=== PATIENT | male | born 1960 | race Caucasian/White ===

== ENCOUNTER 2016-07-30 12:41 | Inpatient (IN) | payer OTHER ==
--- NOTE | 2016-07-30 13:22 | PDOC ---
History of Present Illness - General Chief Complaint: Vomiting/Diarrhea Stated Complaint: WEAKNESS, N/V/D Time Seen by Provider: 07/30/16 13:15 History Source: Patient Exam Limitations: No Limitations - History of Present Illness Initial Comments: 07/30/16 13:35 Patient is a 56 year old male with PMH of DM (s/p multiple toe amputations, MRSA ), HTN, HLD, Prostate CA (seed implants 3 weeks ago) who presents to ED with fatigue. Patient states he has had nausea & vomiting for 3 days with a severe loss of appetite. Vomit is nonbilious nonbloody. He also reports several episodes of watery stools early on, but not for last 2 days. He states the lack of food & increased vomiting has left him very fatigues and he feels lightheaded. He has not taken any blood sugar fingersticks since tuesday. He also has not taken any of his insulin (short or long acting) since tuesday. Denies headache, chest pain, shortness of breath, abdominal pain, visual changes , fever or chills. Past History - Travel Traveled outside of the country in the last 30 days: No Close contact w/someone who was outside of country & ill: No - Past Medical History Allergies/Adverse Reactions: Allergies Allergy/AdvReac Type Severity Reaction Status Date / Time No Known Drug Allergies Allergy Verified 07/30/16 12:57 Home Medications: Ambulatory Orders Atorvastatin Ca [Lipitor] 40 mg PO HS tablet 10/20/15 Amlodipine Besylate [Norvasc -] 5 mg PO DAILY #30 tablet 10/21/15 Bicalutamide 50 mg PO DAILY 04/21/16 Teva Max 1 1 tab PO DAILY 04/27/16 Aspirin [ASA -] 81 mg PO DAILY 07/30/16 Fluticasone Prop 0.05% Nasal [Flonase -] 1 - 2 spray NS DAILY 07/30/16 Insulin Aspart [Novolog] 12 unit SQ TID 07/30/16 Insulin Degludec [Tresiba Flextouch U-100] 45 unit SQ DAILY 07/30/16 Metoprolol Succinate [Toprol Xl -] 25 mg PO DAILY 07/30/16 Multivit-Min/FA/Lycopen/Lutein [Centrum Silver Tablet] 1 each PO DAILY 07/30/16 Tamsulosin HCl 0.4 mg PO DAILY 07/30/16 Anemia: No Asthma: No Cancer: Yes (Prostate (s/p seed implants July 02, 2016)) Cardiac Disorders: No CVA: No COPD: No CHF: No Dementia: No Diabetes: Yes (s/p multiple toe amputations, MRSA, Osteomyelitis) GI Disorders: No Disorders: No HTN: Yes Hypercholesterolemia: Yes Liver Disease: No Seizures: No Thyroid Disease: No - Surgical History Abdominal Surgery: No Appendectomy: No Cardiac Surgery: No Cholecystectomy: No Lung Surgery: No Neurologic Surgery: No Orthopedic Surgery: Yes - Family Disease History Comment:: 07/30/16 13:44 noncontributory - Psycho/Social/Smoking Cessation Hx Anxiety: No Suicidal Ideation: No Smoking Status: Yes (quit smoking 9 days ago) Smoking History: Former smoker Have you smoked in the past 12 months: No Number of Cigarettes Smoked Daily: 0 If you are a former smoker, when did you quit?: 2012 Information on smoking cessation initiated: No 'Breaking Loose' booklet given: 04/04/13 Hx Alcohol Use: No Drug/Substance Use Hx: No Substance Use Type: None Hx Substance Use Treatment: No Review of Systems - Review of Systems Able to Perform ROS?: Yes Is the patient limited [place] Citizen proficient: No Constitutional: Yes: Loss of Appetite, Malaise, Weakness. No: Chills, Fever HEENTM: No: Blurred Vision, Nose Congestion, Throat Pain, Difficulty Swallowing Respiratory: No: Cough, Shortness of Breath, Wheezing, Hemoptysis Cardiac (ROS): Yes: Lightheadedness. No: Chest Pain, Edema, Palpitations ABD/GI: Yes: Nausea, Vomiting. No: Constipated, Diarrhea, Abdominal cramping : No: Burning, Dysuria Neurological: No: Headache, Numbness, Paresthesia, Ataxia All Other Systems: Reviewed and Negative *Physical Exam - Vital Signs Last Vital Signs Temp Pulse Resp BP Pulse Ox 97.7 F 114 H 20 96/78 98 07/30/16 12:57 07/30/16 12:57 07/30/16 12:57 07/30/16 12:57 07/30/16 12:57 - Physical Exam General Appearance: Yes: Nourished, Appropriately Dressed HEENT: positive: EOMI, [place], Pharynx Normal Neck: positive: Trachea midline, Normal Thyroid, Supple Respiratory/Chest: positive: Lungs Clear, Normal Breath Sounds Cardiovascular: positive: Regular Rhythm, S1, S2, Tachycardia Gastrointestinal/Abdominal: positive: Normal Bowel Sounds, Flat, Soft Musculoskeletal: positive: Normal Inspection Extremity: positive: Normal Range of Motion, Other (All 5 toes amputated on LEFT FOOT. 2 toes amputated on RIGHT foot. 1x2cm ulcer on right sole (not erythematous, tender or swollen; no discharge)). negative: Tender Integumentary: positive: Dry, Warm, Pale Neurologic: positive: nail galvanizer II-XII NML intact, Fully Oriented, Normal Mood/Affect , Motor Strength 5/5 Heart Score/ECG Review - ECG Impressions Comment:: 07/30/16 14:26 IMPRESSION: Normal sinus rhythm. Left [place] deviation. 100bpm. [id number] ED Treatment Course - LABORATORY CBC & Chemistry Diagram: 07/30/16 13:55 07/30/16 13:55 Medical Decision Making - Medical Decision Making 07/30/16 13:46 Will give 1 liter IVF given patient's volume depletion. Ordered CBC, CMP workup. Acetone ordered as well since patient has been off Insulin for 4 days now. 07/30/16 15:53 Glucose found to be 481. Patient given 6u Novolog. Also has acute renal failure w/ Creatinine 1.8. Will order CT Abdomen due to continued vomiting and continue to hydrate patient. Will likely require admission for ARF, Hypergyclemia & hyponatremia. 07/30/16 16:[address] Alva. Will accept patient for admission for Acute renal failure due to dehydration & hyperglycemia. *DC/Admit/Observation/Transfer Diagnosis at time of Disposition: Acute renal failure, IDDM (insulin dependent diabetes mellitus) - Discharge Dispostion Admit: Yes
--- NOTE | 2016-07-30 13:28 | PDOC ---
Attending Attestation - Resident Resident Name: Jose Luis Peres - ED Attending Attestation I have performed the following: I have examined & evaluated the patient, The case was reviewed & discussed with the resident, I agree w/resident's findings & plan, Exceptions are as noted - HPI HPI: 56 yo M history DM, HTN, HL, prostate CA presents with fatigue, N/V for past 3 days. He has poor appetite, no PO intake. He has not taken any insulin due to poor appetite and PO intake, but also has not checked his blood sugar in the interim. C/w fatigue, lightheadedness. Denies abd pain, cp, SOB, headache, f/c. - Physicial Exam PE: GENERAL: Awake, alert, and fully oriented, in no acute distress HEAD: No signs of trauma EYES: PERRLA, EOMI, sclera anicteric, conjunctiva clear ENT: Auricles normal inspection, hearing grossly normal, nares patent, oropharynx clear without exudates. Dry mucosa NECK: Normal ROM, supple, no lymphadenopathy, JVD, or masses LUNGS: Breath sounds equal, clear to auscultation bilaterally. No wheezes, and no crackles HEART: Regular rate and rhythm, normal S1 and S2, no murmurs, rubs or gallops ABDOMEN: Soft, nontender, normoactive bowel sounds. No guarding, no rebound. No masses EXTREMITIES: Normal range of motion, no edema. No clubbing or cyanosis. No cords, erythema, or tenderness NEUROLOGICAL: Cranial nerves II through XII grossly intact. Normal speech, normal gait SKIN: Warm, Dry, normal turgor, no rashes or lesions noted. - Medical Decision Making 56 yo M hx DM presents with 3 day history of poor appetite, N/V. Will obtain CT a/p, as 3 days is longer than would be expected with viral gastroenteritis. Will give IV hydration, check labs including an acetone. Will likely require admission, as he appears ill.
[2016-07-30] MEDS ORDERED: ONDANSETRON 4 MG/2 ML VIAL IVPUSH ONE (13:34)
[2016-07-30] MEDS ORDERED: SODIUM CHLORIDE 1,000 ML IV STA (13:34)
[2016-07-30] MEDS ORDERED: ONDANSETRON 4 MG/2 ML VIAL ONE (14:09)
[2016-07-30 14:20] LABS: MCH 27.5 pg (25.7-33.7); MCHC 34.1 g/dl (32.0-35.9); MEAN CELL VOLUME 80.7 fl (80-96); MEAN PLT VOLUME 9.7 fl (7.5-11.1); PLATELET COUNT 129 K/MM3 (134-434); RDW 16.7 % (11.9-15.9); WHITE BLOOD COUNT 6.7 K/mm3 (4.0-10.0)
[2016-07-30 14:52] LABS: ALBUMIN 3.5 g/dl (3.4-5.0); ANION GAP 15 (8-16); CALCIUM 9.2 mg/dL (8.5-10.1); CO2 22 mmol/L (21-32); CREATININE 1.8 mg/dL (0.7-1.3); SGPT/ALT 43 U/L (12-78)
[2016-07-30 14:54] LABS: ALK PHOS 111 U/L (45-117); BILIRUBIN,TOTAL 1.5 mg/dL (0.2-1.0); TOT PROT 7.4 g/dl (6.4-8.2)
[2016-07-30 14:57] LABS: SGOT/AST 44 U/L (15-37)
[2016-07-30 15:02] LABS: GLUCOSE,RANDOM 481 mg/dL (74-106)
[2016-07-30] MEDS ORDERED: SODIUM CHLORIDE 2,000 ML IV STA (15:11)
[2016-07-30 15:13] LABS: ACETONE SERUM POSITIVE SMALL 1+ (NEGATIVE)
[2016-07-30] MEDS ORDERED: INSULIN (NOVOLOG) ASPART 100 UNITS/ML 10ML VIAL SQ ONE (15:52)
[2016-07-30] MEDS ORDERED: INSULIN REGULAR HUMAN 100 UNITS/ML *VIAL ONE (15:59)
[2016-07-30 17:13] LABS: URINE APPEARANCE CLEAR; URINE BILIRUBIN NEGATIVE (NEGATIVE); URINE COLOR LTYELLOW; URINE GLUCOSE (UA) 3+ (NEGATIVE); URINE KETONE 1+ (NEGATIVE); URINE LEUK ESTERASE NEGATIVE (NEGATIVE); URINE NITRITE NEGATIVE (NEGATIVE); URINE UROBILINOGEN NEGATIVE E.U./dl (0.2-1.0)
[2016-07-30 17:22] LABS: URINE BLOOD 2+ (NEGATIVE); URINE PROTEIN 1+ (NEGATIVE)
[2016-07-30 17:24] LABS: URINE MUCUS RARE; URINE RBC 6 /hpf (0-3); URINE WBC 1 /hpf (3-5)
[2016-07-30] MEDS ORDERED: INSULIN ASPART 12 UNIT SQ SCH (22:00)
[2016-07-30] MEDS: ATORVASTATIN CA 40 MG TABLET (FP) PO SCH (22:07)
[2016-07-30] MEDS: HEPARIN NA (PORCINE) 5,000 UNITS/ML 1ML VIAL SQ SCH (22:07)
[2016-07-30] MEDS: INSULIN DETEMIR 100 UNITS/ML MDV SQ SCH (22:08)
[2016-07-30] MEDS: INSULIN SLIDING SCALE (NOVOLOG) 1 VIAL SQ SCH (22:08)
[2016-07-31 03:14] VITALS: BMI 26.6
[2016-07-31] MEDS: INSULIN SLIDING SCALE (NOVOLOG) 1 VIAL SQ SCH ×4 (06:30→22:27)
[2016-07-31] MEDS ORDERED: PT OWN MED DRAWER 7, Y5N ONE (06:58)
[2016-07-31 08:17] LABS: BASOPHIL 0.5 % (0-2.0); EOSINOPHIL 3.5 % (0-4.5); MCHC 35.1 g/dl (32.0-35.9); MEAN CELL VOLUME 79.7 fl (80-96); MEAN PLT VOLUME 9.4 fl (7.5-11.1); NEUTROPHILS 70.1 % (42.8-82.8); PLATELET COUNT 113 K/MM3 (134-434); RDW 16.5 % (11.9-15.9); WHITE BLOOD COUNT 6.7 K/mm3 (4.0-10.0)
[2016-07-31 09:16] LABS: ALK PHOS 92 U/L (45-117); ANION GAP 9 (8-16); BILIRUBIN,TOTAL 0.9 mg/dL (0.2-1.0); CALCIUM 8.2 mg/dL (8.5-10.1); CO2 25 mmol/L (21-32); GLUCOSE,RANDOM 188 mg/dL (74-106); SGOT/AST 27 U/L (15-37); SGPT/ALT 33 U/L (12-78)
--- NOTE | 2016-07-31 09:37 | CONSULT ---
Consult Consult Specialty:: CCM /PULM Referred by:: NAKUL Reason for Consultation:: Suspected DKA - History of Present Illness Chief Complaint: N&V and passing out History of Present Illness: 56 M DM, s/p multiple toe amputations, MRSA, HTN, HLD, Prostate CA (seed implants 3 weeks ago). Several days of URI and viral GI symptoms. (+) nausea & vomiting with loss of appetite and poor PO intake. Vomit is nonbloody. (+) watery stools early in the illness, but has resolved. Patient reports "I almost passed out" In the ER blood sugar was 481 and there was a suspicion for DKA. After aggressive volume resuscitation -> dramatic improvement in labs and this obviated the need for IV insulin. No CP or SOB. No significant cough or sputum production. 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: Peripheral Neuropathy, Other (IDDM) Cardio/Vascular: Yes: HTN, Hyperlipdemia, Other (peripheral vascular disease) Musculoskeletal: Yes: Osteoarthritis Endocrine: Yes: Diabetes Mellitus (Insulin dependent) - Alcohol/Substance Use Hx Alcohol Use: No - Smoking History Smoking history: Former smoker Have you smoked in the past 12 months: No Aproximately how many cigarettes per day: 0 If you are a former smoker, when did you quit?: 2012 - Social History Usual Living Arrangement: Other (with family) History of Recent Travel: No Home Medications - Allergies Allergies/Adverse Reactions: Allergies Allergy/AdvReac Type Severity Reaction Status Date / Time No Known Drug Allergies Allergy Verified 07/30/16 12:57 - Home Medications Home Medications: Ambulatory Orders Atorvastatin Ca [Lipitor] 40 mg PO HS tablet 10/20/15 Amlodipine Besylate [Norvasc -] 5 mg PO DAILY #30 tablet 10/21/15 Bicalutamide 50 mg PO DAILY 04/21/16 Teva Max 1 1 tab PO DAILY 04/27/16 Aspirin [ASA -] 81 mg PO DAILY 07/30/16 Fluticasone Prop 0.05% Nasal [Flonase -] 1 - 2 spray NS DAILY 07/30/16 Insulin Aspart [Novolog] 12 unit SQ TID 07/30/16 Insulin Degludec [Tresiba Flextouch U-100] 45 unit SQ DAILY 07/30/16 Metoprolol Succinate [Toprol Xl -] 25 mg PO DAILY 07/30/16 Multivit-Min/FA/Lycopen/Lutein [Centrum Silver Tablet] 1 each PO DAILY 07/30/16 Tamsulosin HCl 0.4 mg PO DAILY 07/30/16 Family Disease History - Family Disease History Family Disease History: Diabetes: Father Review of Systems - Review of Systems Constitutional: reports: Lethargy, Loss of Appetite, Malaise, Weakness. denies : Chills, Fever, Night Sweats Eyes: reports: No Symptoms HENT: reports: No Symptoms Neck: reports: No Symptoms Cardiovascular: denies: Chest Pain, Edema, Palpitations, Shortness of Breath Respiratory: reports: Cough. denies: Hemoptysis, SOB, SOB on Exertion, Wheezing Gastrointestinal: reports: Diarrhea, Nausea, Vomiting. denies: Melena, Rectal Bleeding, Vomiting Blood Genitourinary: reports: Other (S/P seed implantation 3 weeks ago) Breasts: reports: No Symptoms Reported Musculoskeletal: reports: Muscle Cramps. denies: Joint Swelling Integumentary: reports: No Symptoms Neurological: reports: No Symptoms Endocrine: denies: Excessive Sweating, Increased Thirst, Unexplained Weight Gain , Unexplained Weight Loss Hematology/Lymphatic: reports: No Symptoms Psychiatric: reports: No Symptoms Physical Exam Vital Signs: Vital Signs Temperature 98.6 F 07/31/16 06:13 Pulse Rate 89 07/31/16 06:13 Respiratory Rate 20 07/31/16 06:13 Blood Pressure 130/84 07/31/16 06:13 O2 Sat by Pulse Oximetry (%) 97 07/30/16 21:00 Constitutional: Yes: Well Nourished, No Distress, Calm Eyes: Yes: Conjunctiva Clear, EOM Intact HENT: Yes: Atraumatic, Normocephalic Neck: Yes: Supple, Trachea Midline Cardiovascular: Yes: Regular Rate and Rhythm Respiratory: Yes: Regular, CTA Bilaterally Gastrointestinal: Yes: Normal Bowel Sounds, Soft ...Rectal Exam: Yes: Deferred Renal/: Yes: WNL Musculoskeletal: Yes: WNL Extremities: Yes: WNL Edema: No Peripheral Pulses WNL: Yes Integumentary: Yes: WNL Neurological: Yes: WNL, Alert, Oriented ...Motor Strength: WNL Psychiatric: Yes: WNL, Alert, Oriented Labs: CBC, BMP 07/31/16 06:15 07/31/16 06:15 Imaging - Results Chest X-ray: Other (None performed) Cat Scan: Report Reviewed, Image Reviewed Problem List - Problems (1) Acute renal failure Code(s): N17.9 - ACUTE KIDNEY FAILURE, UNSPECIFIED (2) IDDM (insulin dependent diabetes mellitus) Code(s): E11.9 - TYPE 2 DIABETES MELLITUS WITHOUT COMPLICATIONS Z79.4 - [facility] (CURRENT) USE OF INSULIN (3) HTN (hypertension) Code(s): I10 - ESSENTIAL (PRIMARY) HYPERTENSION Qualifiers: Hypertension type: essential hypertension Qualified Code(s): I10 - Essential (primary) hypertension (4) Hyperlipidemia Code(s): E78.5 - HYPERLIPIDEMIA, UNSPECIFIED Qualifiers: Hyperlipidemia type: Other hyperlipidemia Qualified Code(s): E78.4 - Other hyperlipidemia (5) PVD (peripheral vascular disease) Code(s): I73.9 - PERIPHERAL VASCULAR DISEASE, UNSPECIFIED (6) Hyperglycemia Code(s): R73.9 - HYPERGLYCEMIA, UNSPECIFIED Assessment/Plan PLAN: Continue IVF PO as tolerated Noted Endocrine consult was called O2 only as needed No need for CXR or chest imaging at this time Thank you. Dr Bone
[2016-07-31] MEDS ORDERED: INSULIN DEGLUDEC SQ SCH (10:00)
[2016-07-31] MEDS: amLODIPine BESYLATE 5 MG TABLET (FP) PO SCH (10:15)
[2016-07-31] MEDS: TAMSULOSIN HCL 0.4 MG CAP.ER.24H (FP) PO SCH (10:16)
[2016-07-31] MEDS: HEPARIN NA (PORCINE) 5,000 UNITS/ML 1ML VIAL SQ SCH ×2 (10:16→22:18)
[2016-07-31] MEDS: ASPIRIN 81 MG CHEWABLE TABLETS PO SCH (10:16)
[2016-07-31] MEDS: METOPROLOL SUCCINATE 25 MG TAB.SR.24H (FP) PO SCH (10:16)
[2016-07-31] MEDS: BICALUTAMIDE 50 MG TABLET (FP) PO SCH (10:16)
[2016-07-31] MEDS: INSULIN DETEMIR 100 UNITS/ML MDV SQ SCH ×2 (10:17→22:26)
[2016-07-31] MEDS: FLUTICASONE PROP 0.05% 16 GM NASAL SPRAY NS SCH (11:00)
--- NOTE | 2016-07-31 12:14 | CONSULT ---
Consult - text type - Consultation Consultation Note: Renal Consult for ARA and Hypernatremia This is a 56 year old Gentleman with PMhx of IDDM, PVD s/p TMA (left foot), Hypertension, Prostate Ca presented with complaints of nausea, vomiting for 3 days found to have ARA with BUN/Cr of 49/1.8 and Na of 130 with blood glucose > 300. Pt denies any sick contact or any new foods. Pt with + aacetones and + anion gap on presentation that improved with IVF. Denies any CKD history, kidney stones, UTI's. Denies any hematuria, dark urine ro flank pain. Renal function improved with IVF. No fever or chills. No Abd pain. Tolerated breakfast this am w/o Nausea or vomiting. PMhx: as above Allergies: NDKA Family hx: [place] Social hx: No T/A/D ROS: as per HPI, all other pertinent ros negative Home Meds: Home Medications Medication Instructions Recorded Atorvastatin Ca [Lipitor] 40 mg PO HS tablet 10/20/15 Amlodipine Besylate [Norvasc -] 5 mg PO DAILY #30 tablet 10/21/15 Bicalutamide 50 mg PO DAILY 04/21/16 Teva Max 1 1 tab PO DAILY 04/27/16 Aspirin [ASA -] 81 mg PO DAILY 07/30/16 Fluticasone Prop 0.05% Nasal 1 - 2 spray NS DAILY 07/30/16 [Flonase -] Insulin Aspart [Novolog] 12 unit SQ TID 07/30/16 Insulin Degludec [Tresiba 45 unit SQ DAILY 07/30/16 Flextouch U-100] Metoprolol Succinate [Toprol Xl -] 25 mg PO DAILY 07/30/16 Multivit-Min/FA/Lycopen/Lutein 1 each PO DAILY 07/30/16 [Centrum Silver Tablet] Tamsulosin HCl 0.4 mg PO DAILY 07/30/16 Vital Signs Temperature 98.6 F 07/31/16 06:13 Pulse Rate 90 07/31/16 09:00 Respiratory Rate 18 07/31/16 09:00 Blood Pressure 120/70 07/31/16 09:00 O2 Sat by Pulse Oximetry (%) 97 07/30/16 21:00 Gen: NAD, awake and alert HEENT: NC/AT, MMM, No JVD CVS: RRR, No M/R Lungs: CTA, no rales or wheeze Abd: soft NT/ND Ext: No edema, clubbing or cyanosis. Left TMA : no bladder distension Neuro: AAOX3, no focal defects CBC, BMP 07/31/16 06:15 07/31/16 06:15 Current Medications Amlodipine Besylate (Norvasc -) 5 mg PO DAILY [facility] Last Admin: 07/31/16 10:15 Dose: 5 mg Aspirin (Asa -) 81 mg PO DAILY [facility] Last Admin: 07/31/16 10:16 Dose: 81 mg Atorvastatin Calcium (Lipitor -) 40 mg PO HS [facility] Last Admin: 07/30/16 22:07 Dose: 40 mg Bicalutamide (Casodex -) 50 mg PO DAILY [facility] Last Admin: 07/31/16 10:16 Dose: 50 mg Fluticasone Propionate (Flonase -) 2 spray NS DAILY [facility] Heparin Sodium (Porcine) (Heparin -) 5,000 unit SQ BID [facility] Last Admin: 07/31/16 10:16 Dose: 5,000 unit Insulin Aspart (Novolog Vial Sliding Scale -) [address] [facility] PRN Reason: Protocol Last Admin: 07/31/16 06:30 Dose: 4 units Insulin Detemir (Levemir Vial) 20 units SQ BID [facility] Last Admin: 07/31/16 10:17 Dose: 20 units Metoprolol Succinate (Toprol Xl -) 25 mg PO DAILY [facility] Last Admin: 07/31/16 10:16 Dose: 25 mg Non-Formulary Medication (Multivit-Min/Fa/Lycopen/Lutein [Centrum Silver Tablet] ) 1 each PO DAILY [facility] Tamsulosin HCl (Flomax -) 0.4 mg PO DAILY [facility] Last Admin: 07/31/16 10:16 Dose: 0.4 mg A/p 56 year old Gentleman with PMhx of IDDM, PVD s/p TMA (left foot), Hypertension, Prostate Ca presented with complaints of nausea, vomiting for 3 days found to have ARA with BUN/Cr of 49/1.8 and Na of 130 with blood glucose > 300. #Acute Kidney Injury secondary to volume depletion Renal function improved s/p IVF Check UCPR to access for proteinuria/diabetic nephropathy Continue isotonic IVF for additional 12 hours Trend BUN/Cr #Diarrhea/Nausea/Vomiting likely due to gastroenteritis Symptoms improved continue IVF oral diet as tolerated f/u stool studies if diarrhea persists #Psedohyponatremia Corrected Na on presentation WNL No measured Na is WNL continue isotonic saline #Hyperglycemia/DM continue Insulin as per Endocrine #Prostate Ca s/p Seeding continue flomax and Casodex Thank you Yahir Thornton DO
[2016-07-31] MEDS ORDERED: SODIUM CHLORIDE 1,000 ML IV SCH (12:30)
--- NOTE | 2016-07-31 15:14 | CONSULT ---
Consult Consult Specialty:: endocrine/diabetes mellitus Referred by:: Reason for Consultation:: iddm uncontrolled - History of Present Illness Chief Complaint: high sugars History of Present Illness: 56 year old male with PMH of DM (s/p multiple toe amputations, MRSA), HTN, HLD, Prostate CA (seed implants 3 weeks ago) who presents to ED with fatigue. Patient states he has had nausea & vomiting for 3 days with a severe loss of appetite. 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, Other (IDDM) Cardio/Vascular: Yes: HTN, Hyperlipdemia, Other (peripheral vascular disease) Musculoskeletal: Yes: Osteoarthritis Endocrine: Yes: Diabetes Mellitus (Insulin dependent) - Alcohol/Substance Use Hx Alcohol Use: No - Smoking History Smoking history: Former smoker Have you smoked in the past 12 months: No Aproximately how many cigarettes per day: 0 If you are a former smoker, when did you quit?: 2012 - Social History Usual Living Arrangement: Other (with family) History of Recent Travel: No Home Medications - Allergies Allergies/Adverse Reactions: Allergies Allergy/AdvReac Type Severity Reaction Status Date / Time No Known Drug Allergies Allergy Verified 07/30/16 12:57 - Home Medications Home Medications: Ambulatory Orders Atorvastatin Ca [Lipitor] 40 mg PO HS tablet 10/20/15 Amlodipine Besylate [Norvasc -] 5 mg PO DAILY #30 tablet 10/21/15 Bicalutamide 50 mg PO DAILY 04/21/16 Teva Max 1 1 tab PO DAILY 04/27/16 Aspirin [ASA -] 81 mg PO DAILY 07/30/16 Fluticasone Prop 0.05% Nasal [Flonase -] 1 - 2 spray NS DAILY 07/30/16 Insulin Aspart [Novolog] 12 unit SQ TID 07/30/16 Insulin Degludec [Tresiba Flextouch U-100] 45 unit SQ DAILY 07/30/16 Metoprolol Succinate [Toprol Xl -] 25 mg PO DAILY 07/30/16 Multivit-Min/FA/Lycopen/Lutein [Centrum Silver Tablet] 1 each PO DAILY 07/30/16 Tamsulosin HCl 0.4 mg PO DAILY 07/30/16 Family Disease History - Family Disease History Family Disease History: Diabetes: Father Review of Systems - Review of Systems Constitutional: reports: Loss of Appetite Eyes: reports: Blurred Vision HENT: reports: No Symptoms Neck: reports: No Symptoms Cardiovascular: reports: No Symptoms Respiratory: reports: No Symptoms Gastrointestinal: reports: Bloating, Nausea Genitourinary: reports: No Symptoms Breasts: reports: No Symptoms Reported Musculoskeletal: reports: Joint Pain, Muscle Pain, Muscle Cramps, Muscle Weakness, Other Integumentary: reports: Pallor, Wound Neurological: reports: Parasthesia, Weakness Endocrine: reports: Unexplained Weight Loss Hematology/Lymphatic: reports: No Symptoms Psychiatric: reports: No Symptoms Physical Exam Vital Signs: Vital Signs Temperature 98.6 F 07/31/16 15:06 Pulse Rate 98 H 07/31/16 15:06 Respiratory Rate 18 07/31/16 15:06 Blood Pressure 122/75 07/31/16 15:06 O2 Sat by Pulse Oximetry (%) 97 07/30/16 21:00 Constitutional: Yes: Calm Eyes: Yes: EOM Intact HENT: Yes: Normocephalic Neck: Yes: WNL Cardiovascular: Yes: Regular Rate and Rhythm Respiratory: Yes: Regular Gastrointestinal: Yes: WNL ...Rectal Exam: Yes: Deferred Renal/: Yes: WNL Breast(s): Yes: WNL Musculoskeletal: Yes: WNL Extremities: Yes: Amputation Edema: No Neurological: Yes: Alert, Oriented, Numbness Labs: CBC, BMP 07/31/16 06:15 07/31/16 06:15 Problem List - Problems (1) Acute renal failure Code(s): N17.9 - ACUTE KIDNEY FAILURE, UNSPECIFIED (2) Hyperglycemia Code(s): R73.9 - HYPERGLYCEMIA, UNSPECIFIED (3) IDDM (insulin dependent diabetes mellitus) Code(s): E11.9 - TYPE 2 DIABETES MELLITUS WITHOUT COMPLICATIONS Z79.4 - [employer] (CURRENT) USE OF INSULIN (4) Diabetes 1.5, managed as type 2 Code(s): E13.9 - OTHER SPECIFIED DIABETES MELLITUS WITHOUT COMPLICATIONS (5) Foot infection Code(s): L08.9 - LOCAL INFECTION OF THE SKIN AND SUBCUTANEOUS TISSUE, UNSP Assessment/Plan Current Active Problems Acute renal failure (Acute) Hyperglycemia (Acute) IDDM (insulin dependent diabetes mellitus) (Chronic) uncontrolled iddm ckd,diabetic neuropathy Abnormal Lab Results 07/30/16 07/31/16 07/31/16 16:23 06:15 06:15 Hct 33.5 L MCV 79.7 L RDW 16.5 H Plt Count 113 L BUN 31 H D Random Glucose 188 H D Hemoglobin A1c % Calcium 8.2 L Total Protein 6.0 L Albumin 3.0 L Urine Protein 1+ H Urine Glucose (UA) 3+ H Urine Ketones 1+ H Urine Blood 2+ H 07/31/16 06:15 Hct MCV RDW Plt Count BUN Random Glucose Hemoglobin A1c % 11.2 H D Calcium Total Protein Albumin Urine Protein Urine Glucose (UA) Urine Ketones Urine Blood Current Medications Generic Name Dose Route Start Last Admin Trade Name Freq PRN Reason Stop Dose Admin Amlodipine Besylate 5 mg 07/31/16 10:00 07/31/16 10:15 Norvasc - PO 5 mg DAILY [facility]ISB[facility] Administration Aspirin 81 mg 07/31/16 10:00 07/31/16 10:16 Asa - PO 81 mg DAILY LISBETH Administration Atorvastatin Calcium 40 mg 07/30/16 22:00 07/30/16 22:07 Lipitor - PO 40 mg HS LISBETH Administration Bicalutamide 50 mg 07/31/16 10:00 07/31/16 10:16 Casodex - PO 50 mg DAILY [facility]ISB[facility] Administration Fluticasone Propionate 2 spray 07/31/16 10:00 Flonase - NS DAILY [facility] Heparin Sodium (Porcine) 5,000 unit 07/30/16 22:00 07/31/16 10:16 Heparin - SQ 5,000 unit BID [facility]ISB[facility] Administration Sodium Chloride 1,000 mls @ 75 mls/hr 07/31/16 12:30 07/31/16 12:50 Normal Saline - IV 08/01/16 06:29 75 mls/hr ASDIR LISBETH Administration Insulin Aspart 1 vial 07/30/16 22:00 07/31/16 12:49 Novolog Vial Sliding Scale - SQ 4 units ACHS LISBETH Administration Protocol Insulin Detemir 20 units 07/30/16 22:00 07/31/16 10:17 Levemir Vial SQ 20 units BID [facility]ISEBTH Administration Metoprolol Succinate 25 mg 07/31/16 10:00 07/31/16 10:16 Toprol Xl - PO 25 mg DAILY [facility] Administration Non-Formulary Medication 1 each 07/31/16 10:00 Multivit-Min/Fa/Lycopen/Lutein [Centrum Silver Tablet] PO DAILY [facility] Tamsulosin HCl 0.4 mg 07/31/16 10:00 07/31/16 10:16 Flomax - PO 0.4 mg DAILY [facility] Administration plan: diabetic nutrition consult levemir 25 units am levemir 20 units hs novolog ss coverage shelter goal tighter diabetic control needed
[2016-07-31] MEDS: ATORVASTATIN CA 40 MG TABLET (FP) PO SCH (22:18)
[2016-08-01] MEDS: INSULIN SLIDING SCALE (NOVOLOG) 1 VIAL SQ SCH ×4 (06:16→22:31)
[2016-08-01] MEDS ORDERED: INSULIN DETEMIR 100 UNITS/ML MDV SQ ONE (06:54)
[2016-08-01 07:59] LABS: ALBUMIN 3.2 g/dl (3.4-5.0); ANION GAP 12 (8-16); CALCIUM 8.5 mg/dL (8.5-10.1); CO2 26 mmol/L (21-32); GLUCOSE,RANDOM 219 mg/dL (74-106); MAGNESIUM 2.3 mg/dL (1.8-2.4)
[2016-08-01 08:03] LABS: ALK PHOS 106 U/L (45-117); BILIRUBIN,TOTAL 0.9 mg/dL (0.2-1.0); CREATININE 1.1 mg/dL (0.7-1.3); PHOSPHOROUS 2.7 mg/dL (2.5-4.9); SGOT/AST 21 U/L (15-37); SGPT/ALT 31 U/L (12-78); TOT PROT 6.8 g/dl (6.4-8.2)
[2016-08-01] MEDS: TAMSULOSIN HCL 0.4 MG CAP.ER.24H (FP) PO SCH (09:14)
[2016-08-01] MEDS: ASPIRIN 81 MG CHEWABLE TABLETS PO SCH (09:14)
[2016-08-01] MEDS: FLUTICASONE PROP 0.05% 16 GM NASAL SPRAY NS SCH (09:14)
[2016-08-01] MEDS: METOPROLOL SUCCINATE 25 MG TAB.SR.24H (FP) PO SCH (09:14)
[2016-08-01] MEDS: amLODIPine BESYLATE 5 MG TABLET (FP) PO SCH (09:14)
[2016-08-01] MEDS: HEPARIN NA (PORCINE) 5,000 UNITS/ML 1ML VIAL SQ SCH ×2 (09:14→22:30)
[2016-08-01] MEDS: BICALUTAMIDE 50 MG TABLET (FP) PO SCH (09:14)
[2016-08-01] MEDS: INSULIN DETEMIR 100 UNITS/ML MDV SQ SCH ×2 (09:14→22:31)
--- NOTE | 2016-08-01 10:14 | HP ---
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: Peripheral Neuropathy, Other (IDDM) Cardiovascular: Yes: HTN, Hyperlipdemia, Other (peripheral vascular disease) Musculoskeletal: Yes: Osteoarthritis Endocrine: Yes: Diabetes Mellitus (Insulin dependent) - Smoking History Smoking history: Former smoker Have you smoked in the past 12 months: No Aproximately how many cigarettes per day: 0 If you are a former smoker, when did you quit?: 2012 - Alcohol/Substance Use Hx Alcohol Use: No - Social History History of Recent Travel: No Home Medications - Allergies Allergies/Adverse Reactions: Allergies Allergy/AdvReac Type Severity Reaction Status Date / Time No Known Drug Allergies Allergy Verified 07/30/16 12:57 - Home Medications Home Medications: Ambulatory Orders Atorvastatin Ca [Lipitor] 40 mg PO HS tablet 10/20/15 Amlodipine Besylate [Norvasc -] 5 mg PO DAILY #30 tablet 10/21/15 Bicalutamide 50 mg PO DAILY 04/21/16 Teva Max 1 1 tab PO DAILY 04/27/16 Aspirin [ASA -] 81 mg PO DAILY 07/30/16 Fluticasone Prop 0.05% Nasal [Flonase -] 1 - 2 spray NS DAILY 07/30/16 Insulin Aspart [Novolog] 12 unit SQ TID 07/30/16 Insulin Degludec [Tresiba Flextouch U-100] 45 unit SQ DAILY 07/30/16 Metoprolol Succinate [Toprol Xl -] 25 mg PO DAILY 07/30/16 Multivit-Min/FA/Lycopen/Lutein [Centrum Silver Tablet] 1 each PO DAILY 07/30/16 Tamsulosin HCl 0.4 mg PO DAILY 07/30/16 Family Disease History - Family Disease History Family Disease History: Diabetes: Father Review of Systems - Review of Systems Constitutional: denies: Chills, Fever Cardiovascular: denies: Chest Pain Respiratory: denies: SOB Gastrointestinal: denies: Abdominal Pain Physical Examination Vital Signs: Vital Signs Temperature 98.1 F 08/01/16 06:44 Pulse Rate 92 H 08/01/16 06:44 Respiratory Rate 20 08/01/16 06:44 Blood Pressure 152/78 08/01/16 06:44 O2 Sat by Pulse Oximetry (%) 97 07/30/16 21:00 Constitutional: Yes: Calm Cardiovascular: Yes: Regular Rate and Rhythm, S1, S2 Respiratory: Yes: CTA Bilaterally Gastrointestinal: Yes: Normal Bowel Sounds, Soft Edema: No Labs: CBC, BMP 07/31/16 06:15 08/01/16 06:15 Imaging - Results Cat Scan: Report Reviewed Problem List - Problems (1) Acute renal failure Code(s): N17.9 - ACUTE KIDNEY FAILURE, UNSPECIFIED (2) Hyperglycemia Code(s): R73.9 - HYPERGLYCEMIA, UNSPECIFIED (3) IDDM (insulin dependent diabetes mellitus) Code(s): E11.9 - TYPE 2 DIABETES MELLITUS WITHOUT COMPLICATIONS Z79.4 - SKILLED NURSING (CURRENT) USE OF INSULIN (4) HTN (hypertension) Code(s): I10 - ESSENTIAL (PRIMARY) HYPERTENSION Qualifiers: Hypertension type: essential hypertension Qualified Code(s): I10 - Essential (primary) hypertension Assessment/Plan PATIENT EXAMINED & CASE REVIEWED 08/01/16 -> NOTE PENDING (1) Acute renal failure Code(s): N17.9 - ACUTE KIDNEY FAILURE, UNSPECIFIED RENAL ON CASE Cr 1.1 (2) Hyperglycemia Code(s): R73.9 - HYPERGLYCEMIA, UNSPECIFIED 2/2 INFECTION -> ID CONSULTED ENDO ON CASE BS IMPROVED (3) IDDM (insulin dependent diabetes mellitus) Code(s): E11.9 - TYPE 2 DIABETES MELLITUS WITHOUT COMPLICATIONS Z79.4 - GUT SNATCHER (CURRENT) USE OF INSULIN (4) HTN (hypertension) Code(s): I10 - ESSENTIAL (PRIMARY) HYPERTENSION Qualifiers: Hypertension type: essential hypertension Qualified Code(s): I10 - Essential (primary) hypertension 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
--- NOTE | 2016-08-01 10:48 | PN ---
Progress Note (short form) - Note Progress Note: Feels overall better. No CP or SOB. Intake & Output 07/29/16 07/30/16 07/31/16 08/01/16 23:59 23:59 23:59 23:59 Intake Total 3180 1360 720 Balance 3180 1360 720 Weight 180 lb Last Vital Signs Temp Pulse Resp BP Pulse Ox 98.1 F 92 H 20 152/78 97 08/01/16 06:44 08/01/16 06:44 08/01/16 06:44 08/01/16 06:44 07/30/16 21:00 Active Medications Amlodipine Besylate (Norvasc -) 5 mg PO DAILY [facility] Last Admin: 08/01/16 09:14 Dose: 5 mg Aspirin (Asa -) 81 mg PO DAILY [facility] Last Admin: 08/01/16 09:14 Dose: 81 mg Atorvastatin Calcium (Lipitor -) 40 mg PO HS [facility] Last Admin: 07/31/16 22:18 Dose: 40 mg Bicalutamide (Casodex -) 50 mg PO DAILY [facility] Last Admin: 08/01/16 09:14 Dose: 50 mg Fluticasone Propionate (Flonase -) 2 spray NS DAILY [facility] Last Admin: 08/01/16 09:14 Dose: Not Given Heparin Sodium (Porcine) (Heparin -) 5,000 unit SQ BID [facility] Last Admin: 08/01/16 09:14 Dose: 5,000 unit Insulin Aspart (Novolog Vial Sliding Scale -) 1 vial SQ [facility] PRN Reason: Protocol Last Admin: 08/01/16 06:16 Dose: 4 units Insulin Detemir (Levemir Vial) 20 units SQ BID [facility] Last Admin: 08/01/16 09:14 Dose: 20 units Metoprolol Succinate (Toprol Xl -) 25 mg PO DAILY [facility] Last Admin: 08/01/16 09:14 Dose: 25 mg Non-Formulary Medication (Multivit-Min/Fa/Lycopen/Lutein [Centrum Silver Tablet] ) 1 each PO DAILY [facility] Tamsulosin HCl (Flomax -) 0.4 mg PO DAILY [facility] Last Admin: 08/01/16 09:14 Dose: 0.4 mg Constitutional: Yes: Well Nourished, No Distress, Calm Eyes: Yes: Conjunctiva Clear, EOM Intact HENT: Yes: Atraumatic, Normocephalic Neck: Yes: Supple, Trachea Midline Cardiovascular: Yes: Regular Rate and Rhythm Respiratory: Yes: Regular, CTA Bilaterally Gastrointestinal: Yes: Normal Bowel Sounds, Soft ...Rectal Exam: Yes: Deferred Renal/: Yes: WNL Musculoskeletal: Yes: WNL Extremities: Yes: WNL Edema: No Peripheral Pulses WNL: Yes Integumentary: Yes: WNL Neurological: Yes: WNL, Alert, Oriented ...Motor Strength: WNL Psychiatric: Yes: WNL, Alert, Oriented Labs: Laboratory Results - last 24 hr 07/31/16 07/31/16 07/31/16 12:00 17:25 21:15 Sodium Potassium Chloride Carbon Dioxide Anion Gap BUN Creatinine Creat Clearance w eGFR POC Glucometer 254 332 Random Glucose Calcium Phosphorus Magnesium Total Bilirubin AST ALT Alkaline Phosphatase Total Protein Albumin U Random Total Protein Urine Creatinine 28.2 07/31/16 07/31/16 08/01/16 21:15 22:25 06:11 Sodium Potassium Chloride Carbon Dioxide Anion Gap BUN Creatinine Creat Clearance w eGFR POC Glucometer 344 208 Random Glucose Calcium Phosphorus Magnesium Total Bilirubin AST ALT Alkaline Phosphatase Total Protein Albumin U Random Total Protein 23 H Urine Creatinine 08/01/16 06:15 Sodium 139 Potassium 3.5 Chloride 101 Carbon Dioxide 26 Anion Gap 12 BUN 18 D Creatinine 1.1 Creat Clearance w eGFR > 60 POC Glucometer Random Glucose 219 H Calcium 8.5 Phosphorus 2.7 Magnesium 2.3 Total Bilirubin 0.9 AST 21 D ALT 31 Alkaline Phosphatase 106 Total Protein 6.8 Albumin 3.2 L U Random Total Protein Urine Creatinine Problem List - Problems (1) Acute renal failure Code(s): N17.9 - ACUTE KIDNEY FAILURE, UNSPECIFIED (2) IDDM (insulin dependent diabetes mellitus) Code(s): E11.9 - TYPE 2 DIABETES MELLITUS WITHOUT COMPLICATIONS 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.4 - 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 (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) USE OF INSULIN (3) HTN (hypertension) Code(s): I10 - ESSENTIAL (PRIMARY) HYPERTENSION Qualifiers: Hypertension type: essential hypertension Qualified Code(s): I10 - Essential (primary) hypertension (4) Hyperlipidemia Code(s): E78.5 - HYPERLIPIDEMIA, UNSPECIFIED Qualifiers: Hyperlipidemia type: Other hyperlipidemia Qualified Code(s): E78.4 - Other hyperlipidemia (5) PVD (peripheral vascular disease) Code(s): I73.9 - PERIPHERAL VASCULAR DISEASE, UNSPECIFIED (6) Hyperglycemia Code(s): R73.9 - HYPERGLYCEMIA, UNSPECIFIED Assessment/Plan PO as tolerated Insulin O2 only as needed No need for CXR or chest imaging at this time Dr Bone Problem List - Problems (1) Acute renal failure Code(s): N17.9 - ACUTE KIDNEY FAILURE, UNSPECIFIED (2) IDDM (insulin dependent diabetes mellitus) Code(s): E11.9 - TYPE 2 DIABETES MELLITUS WITHOUT COMPLICATIONS Z79.4 - GROUP HOME (CURRENT) USE OF INSULIN (3) HTN (hypertension) Code(s): I10 - ESSENTIAL (PRIMARY) HYPERTENSION Qualifiers: Hypertension type: essential hypertension Qualified Code(s): I10 - Essential (primary) hypertension (4) Hyperlipidemia Code(s): E78.5 - HYPERLIPIDEMIA, UNSPECIFIED Qualifiers: Hyperlipidemia type: Other hyperlipidemia Qualified Code(s): E78.4 - Other hyperlipidemia (5) PVD (peripheral vascular disease) Code(s): I73.9 - PERIPHERAL VASCULAR DISEASE, UNSPECIFIED (6) Hyperglycemia Code(s): R73.9 - HYPERGLYCEMIA, UNSPECIFIED
--- NOTE | 2016-08-01 15:47 | CONS ---
DATE OF CONSULTATION: DATE OF DICTATION: 08/01/2016 A 56-year-old male diabetic evaluated for acute gastroenteritis. He was admitted to the hospital on July 30, 2016, with a several day history of nausea, vomiting, diarrhea, and fatigue. He reports that, on July 26, he developed nausea and vomiting, followed by 2 days of watery, nonbloody diarrhea associated with profound fatigue. He denied any associated fever or chills. The patient lives at home alone. He denies any ill contacts. No recent travel. He did take an oral antibiotic approximately 4 weeks ago, around the time of his prostate seed implantation. No recent hospitalizations. PAST MEDICAL HISTORY: Positive for diabetes mellitus, history of diabetic foot infections. He had a complicated admission last year, at which time he had a right foot infection which had extended to the thigh area, requiring debridement and long-term IV antibiotic therapy. Past medical history also includes hypertension, hyperlipidemia, peripheral vascular disease, prostate cancer. PAST SURGICAL HISTORY: Status post left transmetatarsal amputation and amputation of toes on the right. No known allergies. MEDICATIONS: Lipitor, Norvasc, aspirin, Toprol. SOCIAL HISTORY: He lives at home. Denies active tobacco or alcohol use. SYSTEMS REVIEW: Neurologic: No loss of consciousness, seizure activity, focal weakness. Cardiac: Negative chest pain or palpitations. Respiratory: Negative cough or sputum production. Gastrointestinal: As per HPI. Genitourinary: Negative for urinary tract infection. LABORATORY DATA: White count 6.7, hematocrit 33.5, platelet count 113. BUN 18, creatinine 1.1. Urinalysis: One white cell. Influenza swab: Negative. CT scan of the abdomen and pelvis: Negative. PHYSICAL EXAMINATION: General: He is chronically ill-appearing. Vital Signs: Temperature 99.4, blood pressure 127/75, pulse 94 and regular, respirations 18 per minute. HEENT: Sclerae anicteric. Heart Sounds: S1, S2. Lungs: Clear bilaterally. Abdomen: Soft. No tenderness elicited. No mass, rebound, or rigidity. Extremities: Examination of the left foot, he is status post transmetatarsal amputation. There are callouses present on the lateral aspect of the foot as well as the plantar aspect. Examination of the right foot, large callouses present over the plantar aspect of the right foot. There is no surrounding erythema or expressible drainage. IMPRESSION: 1. Acute gastroenteritis. 2. Uncontrolled diabetes mellitus. 3. Status post bilateral diabetic foot infections. 4. Thrombocytopenia. Continue IV fluid hydration, obtain stool studies, observe off antibiotic therapy. JOANNA VARGHESE M.D. [id number]
[2016-08-01] MEDS ORDERED: INSULIN (NOVOLOG) ASPART 100 UNITS/ML 10ML VIAL ONE (21:23)
[2016-08-01] MEDS: ATORVASTATIN CA 40 MG TABLET (FP) PO SCH (22:30)
[2016-08-02] MEDS ORDERED: INSULIN DETEMIR 100 UNITS/ML MDV SQ SCH (00:04)
--- NOTE | 2016-08-02 00:08 | PN ---
Progress Note (short form) - Note Progress Note: hyperglycemia,insulin resistant likely infection,wound source Current Active Problems Acute renal failure (Acute) Hyperglycemia (Acute) IDDM (insulin dependent diabetes mellitus) (Chronic) Abnormal Lab Results 08/01/16 06:15 Random Glucose 219 H Albumin 3.2 L Abnormal Lab Results Current Medications Generic Name Dose Route Start Last Admin Trade Name Josueq PRN Reason Stop Dose Admin Amlodipine Besylate 5 mg 07/31/16 10:00 08/01/16 09:14 Norvasc - PO 5 mg DAILY LISBETH Administration Aspirin 81 mg 07/31/16 10:00 08/01/16 09:14 Asa - PO 81 mg DAILY LISBETH Administration Atorvastatin Calcium 40 mg 07/30/16 22:00 08/01/16 22:30 Lipitor - PO 40 mg HS LISBETH Administration Bicalutamide 50 mg 07/31/16 10:00 08/01/16 09:14 Casodex - PO 50 mg DAILY LISBETH Administration Fluticasone Propionate 2 spray 07/31/16 10:00 08/01/16 09:14 Flonase - NS Not Given DAILY COUNTS [facility]CLUDE 234 BEDS AT THE [facility] Heparin Sodium (Porcine) 5,000 unit 07/30/16 22:00 08/01/16 22:30 Heparin - SQ 5,000 unit BID LISBETH Administration Insulin Aspart 1 vial 08/02/16 00:05 Novolog Vial Sliding Scale - SQ ACHS COUNTS INCLUDE 234 BEDS AT THE [facility] Protocol Insulin Detemir 30 units 08/02/16 00:04 Levemir Vial SQ BID COUNTS INCLUDE 234 BEDS AT THE [facility] Metoprolol Succinate 25 mg 07/31/16 10:00 08/01/16 09:14 Toprol Xl - PO 25 mg DAILY LISBETH Administration Non-Formulary Medication 1 each 07/31/16 10:00 Multivit-Min/Fa/Lycopen/Lutein [Centrum Silver Tablet] PO DAILY [facility]S INCLUDE 234 BEDS AT THE [facility] Tamsulosin HCl 0.4 mg 07/31/16 10:00 08/01/16 09:14 Flomax - PO 0.4 mg DAILY LISBETH Administration titration for insulin scale bgm qid novolog dose levemir increased to 30 units bid with cutoff if sugar below 150mg/dl Problem List - Problems (1) Acute renal failure Code(s): N17.9 - ACUTE KIDNEY FAILURE, UNSPECIFIED (2) Hyperglycemia Code(s): R73.9 - HYPERGLYCEMIA, UNSPECIFIED (3) IDDM (insulin dependent diabetes mellitus) Code(s): E11.9 - TYPE 2 DIABETES MELLITUS WITHOUT COMPLICATIONS Z79.4 - JAIL (CURRENT) USE OF INSULIN (4) Diabetes 1.5, managed as type 2 Code(s): E13.9 - OTHER SPECIFIED DIABETES MELLITUS WITHOUT COMPLICATIONS (5) Foot infection Code(s): L08.9 - LOCAL INFECTION OF THE SKIN AND SUBCUTANEOUS TISSUE, UNSP
[2016-08-02] MEDS: INSULIN SLIDING SCALE (NOVOLOG) 1 VIAL SQ SCH ×4 (06:41→22:35)
[2016-08-02 07:54] LABS: BASOPHIL 0.6 % (0-2.0); MCH 27.6 pg (25.7-33.7); MCHC 34.1 g/dl (32.0-35.9); MEAN CELL VOLUME 80.8 fl (80-96); MEAN PLT VOLUME 9.1 fl (7.5-11.1); NEUTROPHILS 76.2 % (42.8-82.8); PLATELET COUNT 172 K/MM3 (134-434); RDW 16.2 % (11.9-15.9); WHITE BLOOD COUNT 13.6 K/mm3 (4.0-10.0)
[2016-08-02 08:26] LABS: ALBUMIN 3.5 g/dl (3.4-5.0); ANION GAP 12 (8-16); BILIRUBIN,TOTAL 0.9 mg/dL (0.2-1.0); CO2 25 mmol/L (21-32); CREATININE 1.1 mg/dL (0.7-1.3); GLUCOSE,RANDOM 193 mg/dL (74-106); SGOT/AST 18 U/L (15-37); SGPT/ALT 28 U/L (12-78); TOT PROT 7.1 g/dl (6.4-8.2)
[2016-08-02 08:27] LABS: ALK PHOS 114 U/L (45-117)
[2016-08-02] MEDS ORDERED: PT OWN MED DRAWER 7, Y5N ONE ×2 (09:10→19:20)
[2016-08-02] MEDS: TAMSULOSIN HCL 0.4 MG CAP.ER.24H (FP) PO SCH (09:20)
[2016-08-02] MEDS: HEPARIN NA (PORCINE) 5,000 UNITS/ML 1ML VIAL SQ SCH ×2 (09:20→22:36)
[2016-08-02] MEDS: FLUTICASONE PROP 0.05% 16 GM NASAL SPRAY NS SCH ×2 (09:20→09:27)
[2016-08-02] MEDS: ASPIRIN 81 MG CHEWABLE TABLETS PO SCH (09:20)
[2016-08-02] MEDS: BICALUTAMIDE 50 MG TABLET (FP) PO SCH (09:20)
[2016-08-02] MEDS: MULTIVITAMINS THER W-MINERALS COMBO TABLET (FP) PO SCH (09:21)
[2016-08-02] MEDS: amLODIPine BESYLATE 5 MG TABLET (FP) PO SCH (09:21)
[2016-08-02] MEDS: INSULIN DETEMIR 100 UNITS/ML MDV SQ SCH ×2 (09:21→22:36)
[2016-08-02] MEDS: METOPROLOL SUCCINATE 25 MG TAB.SR.24H (FP) PO SCH (09:22)
--- NOTE | 2016-08-02 10:05 | PN ---
Progress Note, Physician Chief Complaint: ID NO complaints NAD No antibiotics - Current Medication List Current Medications: Active Medications Amlodipine Besylate (Norvasc -) 5 mg PO DAILY [facility] Last Admin: 08/02/16 09:21 Dose: 5 mg Aspirin (Asa -) 81 mg PO DAILY [facility] Last Admin: 08/02/16 09:20 Dose: 81 mg Atorvastatin Calcium (Lipitor -) 40 mg PO HS [facility] Last Admin: 08/01/16 22:30 Dose: 40 mg Bicalutamide (Casodex -) 50 mg PO DAILY [facility] Last Admin: 08/02/16 09:20 Dose: 50 mg Fluticasone Propionate (Flonase -) 2 spray NS DAILY [facility] Last Admin: 08/02/16 09:27 Dose: Not Given Heparin Sodium (Porcine) (Heparin -) 5,000 unit SQ BID [facility] Last Admin: 08/02/16 09:20 Dose: 5,000 unit Insulin Aspart (Novolog Vial Sliding Scale -) 1 vial SQ [facility] PRN Reason: Protocol Last Admin: 08/02/16 06:41 Dose: 5 units Insulin Detemir (Levemir Vial) 30 units SQ BID [facility] Last Admin: 08/02/16 09:21 Dose: 30 units Metoprolol Succinate (Toprol Xl -) 25 mg PO DAILY [facility] Last Admin: 08/02/16 09:22 Dose: 25 mg Multivitamins/Minerals (Theragran-M) 1 each PO DAILY [facility] Last Admin: 08/02/16 09:21 Dose: 1 each Tamsulosin HCl (Flomax -) 0.4 mg PO DAILY [facility] Last Admin: 08/02/16 09:20 Dose: 0.4 mg - Objective Vital Signs: Vital Signs Temperature 98.6 F 08/02/16 04:56 Pulse Rate 94 H 08/02/16 04:56 Respiratory Rate 20 08/02/16 04:56 Blood Pressure 120/74 08/02/16 04:56 O2 Sat by Pulse Oximetry (%) 97 07/30/16 21:00 Constitutional: Yes: Well Nourished, No Distress HENT: Yes: WNL, Atraumatic Neck: Yes: WNL, Supple Cardiovascular: Yes: Regular Rate and Rhythm, S1, S2 Respiratory: Yes: WNL, Regular, CTA Bilaterally Gastrointestinal: Yes: WNL, Normal Bowel Sounds, Soft. No: Tenderness, Epigastrium Labs: CBC, BMP 08/02/16 06:05 08/02/16 06:05 Assessment/Plan Microbiology 02/07/15 10:48 Tissue-Other Gram Stain - Final 02/07/15 10:48 Bone Gram Stain - Final 02/07/15 10:48 Tissue-Other Tissue Culture - Preliminary Diphtheroid/Corynebacterium Pending Organism 02/07/15 10:48 Bone Tissue Culture - Preliminary Diphtheroid/Corynebacterium Pending Organism Laboratory Tests 08/02/16 06:05 WBC 13.6 H D Hgb 12.5 Hct 36.8 Plt Count 172 D Assessment Working diagnosis is resolved gastroenteritis DM Plan Observing off antibiotics Sage BROWN
[2016-08-02] MEDS ORDERED: INSULIN DETEMIR 100 UNITS/ML MDV SQ ONE (10:34)
--- NOTE | 2016-08-02 13:54 | PN ---
Progress Note, Physician Chief Complaint: Patient in bed. Offering no new complaints. Passing a lot of urine. Oral intake has improved. BP and vital signs in acceptable range. - Current Medication List Current Medications: Active Medications Amlodipine Besylate (Norvasc -) 5 mg PO DAILY [facility] Last Admin: 08/02/16 09:21 Dose: 5 mg Aspirin (Asa -) 81 mg PO DAILY [facility] Last Admin: 08/02/16 09:20 Dose: 81 mg Atorvastatin Calcium (Lipitor -) 40 mg PO HS [facility] Last Admin: 08/01/16 22:30 Dose: 40 mg Bicalutamide (Casodex -) 50 mg PO DAILY [facility] Last Admin: 08/02/16 09:20 Dose: 50 mg Fluticasone Propionate (Flonase -) 2 spray NS DAILY [facility] Last Admin: 08/02/16 09:27 Dose: Not Given Heparin Sodium (Porcine) (Heparin -) 5,000 unit SQ BID [facility] Last Admin: 08/02/16 09:20 Dose: 5,000 unit Insulin Aspart (Novolog Vial Sliding Scale -) 1 vial SQ [facility] PRN Reason: Protocol Last Admin: 08/02/16 12:06 Dose: 9 units Insulin Detemir (Levemir Vial) 30 units SQ BID [facility] Last Admin: 08/02/16 09:21 Dose: 30 units Metoprolol Succinate (Toprol Xl -) 25 mg PO DAILY [facility] Last Admin: 08/02/16 09:22 Dose: 25 mg Multivitamins/Minerals (Theragran-M) 1 each PO DAILY [facility] Last Admin: 08/02/16 09:21 Dose: 1 each Tamsulosin HCl (Flomax -) 0.4 mg PO DAILY [facility] Last Admin: 08/02/16 09:20 Dose: 0.4 mg - Objective Vital Signs: Vital Signs Temperature 98.4 F 08/02/16 10:00 Pulse Rate 100 H 08/02/16 10:00 Respiratory Rate 18 08/02/16 10:00 Blood Pressure 138/76 08/02/16 10:00 O2 Sat by Pulse Oximetry (%) 97 08/02/16 09:00 Constitutional: Yes: Well Nourished, No Distress Eyes: Yes: WNL HENT: Yes: WNL Neck: Yes: Supple Cardiovascular: Yes: Regular Rate and Rhythm, S1, S2 Respiratory: Yes: CTA Bilaterally Gastrointestinal: Yes: Normal Bowel Sounds, Soft Neurological: Yes: Alert, Oriented Labs: CBC, BMP 08/02/16 06:05 08/02/16 06:05 Problem List - Problems (1) Acute renal failure Code(s): N17.9 - ACUTE KIDNEY FAILURE, UNSPECIFIED (2) IDDM (insulin dependent diabetes mellitus) Code(s): E11.9 - TYPE 2 DIABETES MELLITUS WITHOUT COMPLICATIONS Z79.4 - USP (CURRENT) USE OF INSULIN (3) Diabetes 1.5, managed as type 2 Code(s): E13.9 - OTHER SPECIFIED DIABETES MELLITUS WITHOUT COMPLICATIONS (4) Foot infection Code(s): L08.9 - LOCAL INFECTION OF THE SKIN AND SUBCUTANEOUS TISSUE, UNSP (5) HTN (hypertension) Code(s): I10 - ESSENTIAL (PRIMARY) HYPERTENSION Qualifiers: Hypertension type: essential hypertension Qualified Code(s): I10 - Essential (primary) hypertension (6) PVD (peripheral vascular disease) Code(s): I73.9 - PERIPHERAL VASCULAR DISEASE, UNSPECIFIED (7) Chronic kidney disease (CKD) Code(s): N18.9 - CHRONIC KIDNEY DISEASE, UNSPECIFIED Assessment/Plan 56 y/o male with h/o DM2, peripheral vascular disease, left foot amputation, HTN , CA. Prostate, ARA, possible Chronic Kidney Disease, admitted with volume depletion, Gyperglycemia and Hyponatremia Renal functions have improved and is close to his baseline. Will continue to avoid nephrotoxic agents. Will monitor the Renal functions with you. Thank you Eboni Yu MD
--- NOTE | 2016-08-02 16:17 | PN ---
Progress Note, Physician Chief Complaint: CALM C/O COUGH - Current Medication List Current Medications: Active Medications Amlodipine Besylate (Norvasc -) 5 mg PO DAILY [facility] Last Admin: 08/02/16 09:21 Dose: 5 mg Aspirin (Asa -) 81 mg PO DAILY [facility] Last Admin: 08/02/16 09:20 Dose: 81 mg Atorvastatin Calcium (Lipitor -) 40 mg PO HS [facility] Last Admin: 08/01/16 22:30 Dose: 40 mg Bicalutamide (Casodex -) 50 mg PO DAILY [facility] Last Admin: 08/02/16 09:20 Dose: 50 mg Fluticasone Propionate (Flonase -) 2 spray NS DAILY [facility] Last Admin: 08/02/16 09:27 Dose: Not Given Heparin Sodium (Porcine) (Heparin -) 5,000 unit SQ BID [facility] Last Admin: 08/02/16 09:20 Dose: 5,000 unit Insulin Aspart (Novolog Vial Sliding Scale -) 1 vial SQ [facility] PRN Reason: Protocol Last Admin: 08/02/16 12:06 Dose: 9 units Insulin Detemir (Levemir Vial) 30 units SQ BID [facility] Last Admin: 08/02/16 09:21 Dose: 30 units Metoprolol Succinate (Toprol Xl -) 25 mg PO DAILY [facility] Last Admin: 08/02/16 09:22 Dose: 25 mg Multivitamins/Minerals (Theragran-M) 1 each PO DAILY [facility] Last Admin: 08/02/16 09:21 Dose: 1 each Tamsulosin HCl (Flomax -) 0.4 mg PO DAILY [facility] Last Admin: 08/02/16 09:20 Dose: 0.4 mg - Objective Vital Signs: Vital Signs Temperature 100.0 F H 08/02/16 14:26 Pulse Rate 98 H 08/02/16 14:26 Respiratory Rate 18 08/02/16 14:26 Blood Pressure 122/72 08/02/16 14:26 O2 Sat by Pulse Oximetry (%) 97 08/02/16 09:00 Constitutional: Yes: Calm Cardiovascular: Yes: Regular Rate and Rhythm, S1, S2 Respiratory: Yes: CTA Bilaterally Gastrointestinal: Yes: Normal Bowel Sounds, Soft Edema: No Labs: CBC, BMP 08/02/16 06:05 08/02/16 06:05 Problem List - Problems (1) Acute renal failure Code(s): N17.9 - ACUTE KIDNEY FAILURE, UNSPECIFIED (2) Hyperglycemia Code(s): R73.9 - HYPERGLYCEMIA, UNSPECIFIED (3) IDDM (insulin dependent diabetes mellitus) Code(s): E11.9 - TYPE 2 DIABETES MELLITUS WITHOUT COMPLICATIONS Z79.4 - INTERMEDIATE (CURRENT) USE OF INSULIN (4) HTN (hypertension) Code(s): I10 - ESSENTIAL (PRIMARY) HYPERTENSION Qualifiers: Hypertension type: essential hypertension Qualified Code(s): I10 - Essential (primary) hypertension Assessment/Plan (1) Acute renal failure Code(s): N17.9 - ACUTE KIDNEY FAILURE, UNSPECIFIED RENAL ON CASE NOW AT BASELINE MONITOR (2) Hyperglycemia Code(s): R73.9 - HYPERGLYCEMIA, UNSPECIFIED 2/2 RESOLVING AGE -> ID CONSULT APPRECIATED ENDO ON CASE BS IMPROVED (3) IDDM (insulin dependent diabetes mellitus) Code(s): E11.9 - TYPE 2 DIABETES MELLITUS WITHOUT COMPLICATIONS Z79.4 - INTERMEDIATE (CURRENT) USE OF INSULIN ENDO ON CASE ON LEVEMIR (4) HTN (hypertension) Code(s): I10 - ESSENTIAL (PRIMARY) HYPERTENSION Qualifiers: Hypertension type: essential hypertension Qualified Code(s): I10 - Essential (primary) hypertension [employer]
[2016-08-02] MEDS ORDERED: guaiFENesin/D-M SUGAR-FREE/ACLHOL-FREE 118 ML BOTTLE PO PRN (16:56)
[2016-08-02] MEDS ORDERED: INSULIN (NOVOLOG) ASPART 100 UNITS/ML 10ML VIAL ONE (17:19)
[2016-08-02] MEDS: MUPIROCIN CA 2% TOPICAL CREAM 15 GM TUBE TP SCH (22:35)
[2016-08-02] MEDS: ATORVASTATIN CA 40 MG TABLET (FP) PO SCH (22:36)
[2016-08-03] MEDS ORDERED: INSULIN (NOVOLOG) ASPART 100 UNITS/ML 10ML VIAL ONE ×3 (06:24→21:21)
[2016-08-03] MEDS: INSULIN SLIDING SCALE (NOVOLOG) 1 VIAL SQ SCH ×4 (06:29→22:40)
[2016-08-03 08:33] LABS: ALBUMIN 2.9 g/dl (3.4-5.0); ALK PHOS 98 U/L (45-117); ANION GAP 13 (8-16); BILIRUBIN,TOTAL 0.7 mg/dL (0.2-1.0); CALCIUM 8.4 mg/dL (8.5-10.1); CO2 23 mmol/L (21-32); CREATININE 1.1 mg/dL (0.7-1.3); GLUCOSE,RANDOM 155 mg/dL (74-106); SGOT/AST 32 U/L (15-37); SGPT/ALT 34 U/L (12-78); TOT PROT 6.4 g/dl (6.4-8.2)
[2016-08-03 08:40] LABS: BASOPHIL 0.5 % (0-2.0); EOSINOPHIL 1.5 % (0-4.5); MCH 27.9 pg (25.7-33.7); MCHC 34.5 g/dl (32.0-35.9); MEAN CELL VOLUME 80.8 fl (80-96); MEAN PLT VOLUME 8.9 fl (7.5-11.1); NEUTROPHILS 76.6 % (42.8-82.8); PLATELET COUNT 165 K/MM3 (134-434); WHITE BLOOD COUNT 10.3 K/mm3 (4.0-10.0)
--- NOTE | 2016-08-03 10:46 | PN ---
Progress Note (short form) - Note Progress Note: Renal follow up for ARA Pt seen and examined at the bedside no acute complaints no sob, chest pain, abd pain, N/V/D off IVF tolerating oral diet Vital Signs Temperature 98.2 F 08/03/16 06:00 Pulse Rate 87 08/03/16 06:00 Respiratory Rate 20 08/03/16 06:00 Blood Pressure 118/73 08/03/16 06:00 O2 Sat by Pulse Oximetry (%) 97 08/02/16 21:00 Intake & Output 07/31/16 08/01/16 08/02/16 08/03/16 23:59 23:59 23:59 23:59 Intake Total 1360 2150 550 Balance 1360 2150 550 Gen: NAD, awake and alert CVS: RRR, No M/R Lungs: CTA, no rales or wheeze Abd: soft NT/ND Ext: No edema, clubbing or cyanosis. Left TMA CBC, BMP 08/03/16 06:00 08/03/16 06:45 Laboratory Tests 08/03/16 06:45 Calcium 8.4 L Albumin 2.9 L A/p 56 year old Gentleman with PMhx of IDDM, PVD s/p TMA (left foot), Hypertension, Prostate Ca presented with complaints of nausea, vomiting for 3 days found to have ARA with BUN/Cr of 49/1.8 and Na of 130 with blood glucose > 300. #Acute Kidney Injury secondary to volume depletion Renal function improved and stable Urine studies showed subnephrotic proteinuria CT of Abd showed normal appearing kidneys w/o obstruction or stones Repeat UA today as prior UA showed microscopic hematuria #Diarrhea/Nausea/Vomiting likely due to gastroenteritis Clinically improved Tolerating diet #Hyperglycemia/DM continue Insulin as per Endocrine #Prostate Ca s/p Seeding continue flomax and Casodex Thank you Yahir Thornton DO
[2016-08-03] MEDS: INSULIN DETEMIR 100 UNITS/ML MDV SQ SCH ×2 (11:13→22:28)
[2016-08-03] MEDS: TAMSULOSIN HCL 0.4 MG CAP.ER.24H (FP) PO SCH (11:14)
[2016-08-03] MEDS: MULTIVITAMINS THER W-MINERALS COMBO TABLET (FP) PO SCH (11:14)
[2016-08-03] MEDS: amLODIPine BESYLATE 5 MG TABLET (FP) PO SCH (11:14)
[2016-08-03] MEDS: METOPROLOL SUCCINATE 25 MG TAB.SR.24H (FP) PO SCH (11:14)
[2016-08-03] MEDS: HEPARIN NA (PORCINE) 5,000 UNITS/ML 1ML VIAL SQ SCH ×2 (11:15→22:28)
[2016-08-03] MEDS: MUPIROCIN CA 2% TOPICAL CREAM 15 GM TUBE TP SCH (11:15)
[2016-08-03] MEDS: ASPIRIN 81 MG CHEWABLE TABLETS PO SCH (11:15)
[2016-08-03] MEDS: FLUTICASONE PROP 0.05% 16 GM NASAL SPRAY NS SCH (11:15)
[2016-08-03] MEDS: BICALUTAMIDE 50 MG TABLET (FP) PO SCH (11:16)
[2016-08-03 13:18] LABS: URINE APPEARANCE CLEAR; URINE BILIRUBIN NEGATIVE (NEGATIVE); URINE COLOR YELLOW; URINE GLUCOSE (UA) 3+ (NEGATIVE); URINE KETONE NEGATIVE (NEGATIVE); URINE LEUK ESTERASE NEGATIVE (NEGATIVE); URINE NITRITE NEGATIVE (NEGATIVE); URINE PROTEIN NEGATIVE (NEGATIVE); URINE UROBILINOGEN NEGATIVE E.U./dl (0.2-1.0)
[2016-08-03 13:40] LABS: URINE BLOOD 1+ (NEGATIVE)
[2016-08-03 13:44] LABS: URINE BACTERIA RARE /hpf (NONE SEEN); URINE MUCUS RARE; URINE RBC <1 /hpf (0-3); URINE WBC 2 /hpf (3-5)
--- NOTE | 2016-08-03 15:10 | PN ---
Progress Note, Physician Chief Complaint: AWAKE ALERT STILL HAVING SOME ABDOMINAL DISCOMFORT TOLERATING PO DIET LOW GRADE FEVER 100.3 TODAY OFF ABX - Current Medication List Current Medications: Active Medications Amlodipine Besylate (Norvasc -) 5 mg PO DAILY [facility] Last Admin: 08/03/16 11:14 Dose: 5 mg Aspirin (Asa -) 81 mg PO DAILY [facility] Last Admin: 08/03/16 11:15 Dose: 81 mg Atorvastatin Calcium (Lipitor -) 40 mg PO HS [facility] Last Admin: 08/02/16 22:36 Dose: 40 mg Bicalutamide (Casodex -) 50 mg PO DAILY [facility] Last Admin: 08/03/16 11:16 Dose: 50 mg Fluticasone Propionate (Flonase -) 2 spray NS DAILY [facility] Last Admin: 08/03/16 11:15 Dose: Not Given Guaifenesin (Diabetic Tussin Dm -) 5 ml PO Q6H PRN PRN Reason: COUGH Heparin Sodium (Porcine) (Heparin -) 5,000 unit SQ BID [facility] Last Admin: 08/03/16 11:15 Dose: 5,000 unit Insulin Aspart (Novolog Vial Sliding Scale -) 1 vial SQ [facility] PRN Reason: Protocol Last Admin: 08/03/16 11:15 Dose: 7 units Insulin Detemir (Levemir Vial) 30 units SQ BID [facility] Last Admin: 08/03/16 11:13 Dose: 30 units Metoprolol Succinate (Toprol Xl -) 25 mg PO DAILY [facility] Last Admin: 08/03/16 11:14 Dose: 25 mg Multivitamins/Minerals (Theragran-M) 1 each PO DAILY [facility] Last Admin: 08/03/16 11:14 Dose: 1 each Mupirocin (Bactroban 2% Cream -) 1 applic TP DAILY [facility] Last Admin: 08/03/16 11:15 Dose: Not Given Tamsulosin HCl (Flomax -) 0.4 mg PO DAILY [facility] Last Admin: 08/03/16 11:14 Dose: 0.4 mg - Objective Vital Signs: Vital Signs Temperature 98.2 F 08/03/16 06:00 Pulse Rate 87 08/03/16 06:00 Respiratory Rate 20 08/03/16 06:00 Blood Pressure 118/73 08/03/16 06:00 O2 Sat by Pulse Oximetry (%) 97 08/02/16 21:00 Constitutional: Yes: Mild Distress Eyes: Yes: WNL HENT: Yes: WNL Neck: Yes: WNL Cardiovascular: Yes: WNL Respiratory: Yes: WNL Gastrointestinal: Yes: Tenderness Genitourinary: Yes: WNL Musculoskeletal: Yes: WNL Extremities: Yes: Amputation Edema: No Peripheral Pulses WNL: Yes Integumentary: Yes: Other Wound/Incision: Yes: Dressing Dry and Intact Neurological: Yes: Pre-Existing Deficit ...Motor Strength: LLE, RLE Psychiatric: Yes: Other Labs: CBC, BMP 08/03/16 06:00 08/03/16 06:45 Problem List - Problems (1) Acute renal failure Code(s): N17.9 - ACUTE KIDNEY FAILURE, UNSPECIFIED (2) Chronic kidney disease (CKD) Code(s): N18.9 - CHRONIC KIDNEY DISEASE, UNSPECIFIED (3) Hyperglycemia Code(s): R73.9 - HYPERGLYCEMIA, UNSPECIFIED (4) IDDM (insulin dependent diabetes mellitus) Code(s): E11.9 - TYPE 2 DIABETES MELLITUS WITHOUT COMPLICATIONS Z79.4 - CHEMISTRY RESEARCH ASSISTANT (CURRENT) USE OF INSULIN (5) Fever Code(s): R50.9 - FEVER, UNSPECIFIED (6) HTN (hypertension) Code(s): I10 - ESSENTIAL (PRIMARY) HYPERTENSION Qualifiers: Hypertension type: essential hypertension Qualified Code(s): I10 - Essential (primary) hypertension (7) Hyperlipidemia Code(s): E78.5 - HYPERLIPIDEMIA, UNSPECIFIED Qualifiers: Hyperlipidemia type: Other hyperlipidemia Qualified Code(s): E78.4 - Other hyperlipidemia (8) PVD (peripheral vascular disease) Code(s): I73.9 - PERIPHERAL VASCULAR DISEASE, UNSPECIFIED (9) Acute gastroenteritis Code(s): K52.9 - NONINFECTIVE GASTROENTERITIS AND COLITIS, UNSPECIFIED Assessment/Plan OFF ABX WILL MONITOR FEVER TMAX 100.3 AWAITING STOOL CULTURES NEPHROLOGY EVAL APPRECIATED SSI,ADA, DIABETES COMPLIANCE STRESSED OUTPATIENT ENDOCRINE CONSULT DC PLANNING TOMORROW
--- NOTE | 2016-08-03 15:20 | PN ---
Progress Note, Physician History of Present Illness: No complaints No N/V/D No abdominal pain + low grade fever noted WBC improved - Current Medication List Current Medications: Active Medications Amlodipine Besylate (Norvasc -) 5 mg PO DAILY [facility] Last Admin: 08/03/16 11:14 Dose: 5 mg Aspirin (Asa -) 81 mg PO DAILY [facility] Last Admin: 08/03/16 11:15 Dose: 81 mg Atorvastatin Calcium (Lipitor -) 40 mg PO HS [facility] Last Admin: 08/02/16 22:36 Dose: 40 mg Bicalutamide (Casodex -) 50 mg PO DAILY [facility] Last Admin: 08/03/16 11:16 Dose: 50 mg Fluticasone Propionate (Flonase -) 2 spray NS DAILY [facility] Last Admin: 08/03/16 11:15 Dose: Not Given Guaifenesin (Diabetic Tussin Dm -) 5 ml PO Q6H PRN PRN Reason: COUGH Heparin Sodium (Porcine) (Heparin -) 5,000 unit SQ BID [facility] Last Admin: 08/03/16 11:15 Dose: 5,000 unit Insulin Aspart (Novolog Vial Sliding Scale -) 1 vial SQ ACHS [facility] PRN Reason: Protocol Last Admin: 08/03/16 11:15 Dose: 7 units Insulin Detemir (Levemir Vial) 30 units SQ BID [facility] Last Admin: 08/03/16 11:13 Dose: 30 units Metoprolol Succinate (Toprol Xl -) 25 mg PO DAILY [facility] Last Admin: 08/03/16 11:14 Dose: 25 mg Multivitamins/Minerals (Theragran-M) 1 each PO DAILY [facility] Last Admin: 08/03/16 11:14 Dose: 1 each Mupirocin (Bactroban 2% Cream -) 1 applic TP DAILY [facility] Last Admin: 08/03/16 11:15 Dose: Not Given Tamsulosin HCl (Flomax -) 0.4 mg PO DAILY [facility] Last Admin: 08/03/16 11:14 Dose: 0.4 mg - Objective Vital Signs: Vital Signs Temperature 98.4 F 08/03/16 15:09 Pulse Rate 83 08/03/16 15:09 Respiratory Rate 16 08/03/16 15:09 Blood Pressure 125/72 08/03/16 15:09 O2 Sat by Pulse Oximetry (%) 97 02/06/17 21:00 Constitutional: Yes: No Distress Eyes: Yes: Conjunctiva Clear Cardiovascular: Yes: Regular Rate and Rhythm, S1, S2 Respiratory: Yes: CTA Bilaterally Gastrointestinal: Yes: Normal Bowel Sounds, Soft. No: Tenderness Edema: No Labs: CBC, BMP 08/03/16 06:00 08/03/16 06:45 Assessment/Plan Acute gastroenteritis- resolved Uncontrolled Diabetes mellitus- improved Observe off antibiotics
[2016-08-03] MEDS: ATORVASTATIN CA 40 MG TABLET (FP) PO SCH (22:27)
[2016-08-04] MEDS: INSULIN SLIDING SCALE (NOVOLOG) 1 VIAL SQ SCH (06:54)
[2016-08-04 08:15] LABS: CALCIUM 8.9 mg/dL (8.5-10.1); MAGNESIUM 2.3 mg/dL (1.8-2.4); PHOSPHOROUS 4.1 mg/dL (2.5-4.9)
--- NOTE | 2016-08-04 08:40 | DS ---
Physical Examination Vital Signs: Vital Signs Temperature 97.8 F 08/04/16 06:00 Pulse Rate 84 08/04/16 06:00 Respiratory Rate 20 08/04/16 06:00 Blood Pressure 115/76 08/04/16 06:00 O2 Sat by Pulse Oximetry (%) 97 08/03/16 21:00 Findings/Remarks: EATING BREAKFAST/COMFORTABLE Constitutional: Yes: No Distress Eyes: Yes: WNL HENT: Yes: WNL Neck: Yes: WNL Cardiovascular: Yes: WNL Respiratory: Yes: WNL Gastrointestinal: Yes: WNL Renal/: Yes: WNL Musculoskeletal: Yes: WNL Extremities: Yes: Amputation, Deformity Edema: No Peripheral Pulses WNL: Yes Integumentary: Yes: Other Wound/Incision: Yes: Dressing Dry and Intact Neurological: Yes: Unsteady Gait, Weakness ...Motor Strength: LLE, RLE Psychiatric: Yes: WNL Labs: CBC, BMP 08/03/16 06:00 08/04/16 06:50 Discharge Summary Reason For Visit: INSULIN DEPENDENT DIABETES MELLITUS, ACUTE RENAL Current Active Problems Acute gastroenteritis (Acute) Acute renal failure (Acute) Chronic kidney disease (CKD) (Acute) Hyperglycemia (Acute) IDDM (insulin dependent diabetes mellitus) (Chronic) Procedures: Principal: CT SCAN Other Procedures: IV FLUIDS AND ABX Hospital Course: ADMITTED FOR ACUTE ABDOMINAL PAIN, RENAL FAILURE, GASTROENTERITIS, REPLETES IVF , IV ABX, NPO, TOLERATED MEALS SLOWLY Condition: Improved - Instructions Diet, Activity, Other Instructions: ADA/RENAL Disposition: HOME - Home Medications Comprehensive Discharge Medication List: Ambulatory Orders Atorvastatin Ca [Lipitor] 40 mg PO HS tablet 10/20/15 Amlodipine Besylate [Norvasc -] 5 mg PO DAILY #30 tablet 10/21/15 Bicalutamide 50 mg PO DAILY 04/21/16 Teva Max 1 1 tab PO DAILY 04/27/16 Aspirin [ASA -] 81 mg PO DAILY 07/30/16 Fluticasone Prop 0.05% Nasal [Flonase -] 1 - 2 spray NS DAILY 07/30/16 Insulin Aspart [Novolog] 12 unit SQ TID 07/30/16 Insulin Degludec [Tresiba Flextouch U-100] 45 unit SQ DAILY 07/30/16 Metoprolol Succinate [Toprol Xl -] 25 mg PO DAILY 07/30/16 Multivit-Min/FA/Lycopen/Lutein [Centrum Silver Tablet] 1 each PO DAILY 07/30/16 Tamsulosin HCl 0.4 mg PO DAILY 07/30/16 SEE PMD IN 1 WEEK
[2016-08-04] MEDS: INSULIN DETEMIR 100 UNITS/ML MDV SQ SCH (10:18)
[2016-08-04] MEDS: HEPARIN NA (PORCINE) 5,000 UNITS/ML 1ML VIAL SQ SCH (10:18)
[2016-08-04] MEDS: METOPROLOL SUCCINATE 25 MG TAB.SR.24H (FP) PO SCH (10:18)
[2016-08-04] MEDS: MULTIVITAMINS THER W-MINERALS COMBO TABLET (FP) PO SCH (10:18)
[2016-08-04] MEDS: TAMSULOSIN HCL 0.4 MG CAP.ER.24H (FP) PO SCH (10:18)
[2016-08-04] MEDS: ASPIRIN 81 MG CHEWABLE TABLETS PO SCH (10:18)
[2016-08-04] MEDS: FLUTICASONE PROP 0.05% 16 GM NASAL SPRAY NS SCH (10:18)
[2016-08-04] MEDS: BICALUTAMIDE 50 MG TABLET (FP) PO SCH (10:18)
[2016-08-04] MEDS: amLODIPine BESYLATE 5 MG TABLET (FP) PO SCH (10:18)
[2016-08-04] MEDS: MUPIROCIN CA 2% TOPICAL CREAM 15 GM TUBE TP SCH (10:19)
--- NOTE | 2016-08-04 10:55 | PN ---
Progress Note (short form) - Note Progress Note: Renal follow up for ARA no acute complaints for discharge today \ Vital Signs Temperature 97.8 F 08/04/16 06:00 Pulse Rate 84 08/04/16 06:00 Respiratory Rate 20 08/04/16 06:00 Blood Pressure 115/76 08/04/16 06:00 O2 Sat by Pulse Oximetry (%) 97 08/03/16 21:00 Intake & Output 08/01/16 08/02/16 08/03/16 08/04/16 23:59 23:59 23:59 23:59 Intake Total 2150 550 600 Balance 2150 550 600 Gen: NAD, awake and alert CVS: RRR, No M/R Lungs: CTA, no rales or wheeze Abd: soft NT/ND Ext: No edema, clubbing or cyanosis. Left TMA \ CBC, BMP 08/03/16 06:00 08/04/16 06:50 Current Medications Amlodipine Besylate (Norvasc -) 5 mg PO DAILY [facility] Last Admin: 08/04/16 10:18 Dose: 5 mg Aspirin (Asa -) 81 mg PO DAILY [facility] Last Admin: 08/04/16 10:18 Dose: 81 mg Atorvastatin Calcium (Lipitor -) 40 mg PO HS [facility] Last Admin: 08/03/16 22:27 Dose: 40 mg Bicalutamide (Casodex -) 50 mg PO DAILY [facility] Last Admin: 08/04/16 10:18 Dose: 50 mg Fluticasone Propionate (Flonase -) 2 spray NS DAILY [facility] Last Admin: 08/04/16 10:18 Dose: Not Given Guaifenesin (Diabetic Tussin Dm -) 5 ml PO Q6H PRN PRN Reason: COUGH Heparin Sodium (Porcine) (Heparin -) 5,000 unit SQ BID [facility] Last Admin: 08/04/16 10:18 Dose: 5,000 unit Insulin Aspart (Novolog Vial Sliding Scale -) 1 vial SQ ACHS [facility] PRN Reason: Protocol Last Admin: 08/04/16 06:54 Dose: 3 units Insulin Detemir (Levemir Vial) 30 units SQ BID [facility] Last Admin: 08/04/16 10:18 Dose: 30 units Metoprolol Succinate (Toprol Xl -) 25 mg PO DAILY [facility] Last Admin: 08/04/16 10:18 Dose: 25 mg Multivitamins/Minerals (Theragran-M) 1 each PO DAILY [facility] Last Admin: 08/04/16 10:18 Dose: 1 each Mupirocin (Bactroban 2% Cream -) 1 applic TP DAILY [facility] Last Admin: 08/04/16 10:19 Dose: 1 applic Tamsulosin HCl (Flomax -) 0.4 mg PO DAILY [facility] Last Admin: 08/04/16 10:18 Dose: 0.4 mg A/p 56 year old Gentleman with PMhx of IDDM, PVD s/p TMA (left foot), Hypertension, Prostate Ca presented with complaints of nausea, vomiting for 3 days found to have ARA with BUN/Cr of 49/1.8 and Na of 130 with blood glucose > 300. #Acute Kidney Injury secondary to volume depletion Renal function improved and stable Oral Hydration advised repeat UA w/o significant proteinuria follow up with PMD and have repeat BMP in 1 week Thank you Yahir Thornton DO
[2016-08-04 11:27] VITALS: BP 136/81; PULSE 92; TEMP 98.2
--- NOTE | 2016-08-04 13:50 | EKG ---
Test Reason : Blood Pressure : / mmHG Vent. Rate : 100 BPM Atrial Rate : 100 BPM P-R Int : 158 ms QRS Dur : 092 ms QT Int : 354 ms P-R-T Axes : 035 -30 049 degrees QTc Int : 456 ms NORMAL SINUS RHYTHM LEFT AXIS DEVIATION ABNORMAL ECG WHEN COMPARED WITH ECG OF 02-DEC-2015 15:04, NO SIGNIFICANT CHANGE WAS FOUND Confirmed by IVANIA CABRERA MD ([id number]) on 08/04/2016 1:49:40 PM Referred By: Confirmed By:IVANIA CABRERA MD
== END 2016-08-04 11:28 | disposition home or self-care (01) | DRG 683 ==
LOC: JER 12:41 → JERBED 16:36 → J8W 19:45
PROVIDERS: ADMIT Family Medicine; ATTEND Family Medicine
DX: N17.9 Acute kidney failure, unspecified (principal); E87.0 Hyperosmolality and hypernatremia; K52.9 Noninfective gastroenteritis and colitis, unspecified; E78.5 Hyperlipidemia, unspecified; Z86.14 Personal history of Methicillin resistant Staphylococcus aureus infection; C61 Malignant neoplasm of prostate; E78.00 Pure hypercholesterolemia, unspecified; E11.51 Type 2 diabetes mellitus with diabetic peripheral angiopathy without gangrene; E11.42 Type 2 diabetes mellitus with diabetic polyneuropathy; E11.65 Type 2 diabetes mellitus with hyperglycemia; Z79.4 Long term (current) 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; E86.0 Dehydration; M19.90 Unspecified osteoarthritis, unspecified site; Z87.891 Personal history of nicotine dependence; Z89.421 Acquired absence of other right toe(s); Z89.432 Acquired absence of left foot; R26.81 Unsteadiness on feet
CPT/HCPCS: 36415; 74176-TC; 80048; 80053; 81003; 81015; 82009; 82570; 83036; 83735; 84100; 84156; 85025; 85027; 87254; 87804; 93005; 93010; 99285-25; J1644

== ENCOUNTER 2016-08-10 10:39 | Inpatient (IN) | payer OTHER ==
[2016-08-10 10:53] VITALS: BMI 26.7
[2016-08-10] MEDS ORDERED: VANCOMYCIN 1,000 MG in DEXTROSE 5%-WATER - 250 ML IVPB ONE (10:59)
[2016-08-10] MEDS ORDERED: VANCOMYCIN 1 GRAM (PRE-DOCKED) 250 ML IVPB ONE (11:23)
--- NOTE | 2016-08-10 11:24 | PDOC ---
History of Present Illness - General History Source: Patient Exam Limitations: No Limitations - History of Present Illness Initial Comments: 08/10/16 11:45 The patient is a 56 year old male, with a significant past medical history of DM (s/p multiple toe amputations), HTN, HL, prostate CA (seed implants), who was sent to the ER to go to the OR by his metal pourer, and presents with pre- existing right foot wound/ulcer. Patient reports seeing this morning who sent him over to the ER. The pt has been having poor bgm control the past few weeks, dr. Byrd dibrided his wound in his office and was concerned about possible fistula so was sent to the ER for evaluation and surgical intervention later today . He reports not eating anything since 6: 00am. He reports being here 07/30/16 with nausea, vomiting, and dehydration. He reports since being discharged feeling fine, but does note having abnormally high blood sugar, last known reading was patient states was 495. He denies chest pain and shortness of breath. He denies fever, chills, headache and dizziness. He denies fever/chills, cough, nausea, vomit, diarrhea and constipation. Allergies: NKDA. Past surgical history: None reported. Social History: Nonsmoker. CUSTODY ASSISTANT: <Humphrey Becerra - Last Filed: 08/10/16 11:44> <Regan Brownlee - Last Filed: 08/10/16 13:05> - General Chief Complaint: Pain Stated Complaint: admission,O.R wound, prostate seeds Time Seen by Provider: 08/10/16 10:57 Past History <Humphrey Becerra - Last Filed: 08/10/16 11:44> - Past Medical History Anemia: No Asthma: No Cancer: Yes (Prostate (s/p seed implants July 02, 2016)) Cardiac Disorders: No CVA: No COPD: No CHF: No Dementia: No Diabetes: Yes (s/p multiple toe amputations, MRSA, Osteomyelitis) GI Disorders: No Disorders: No HTN: Yes Hypercholesterolemia: Yes Liver Disease: No Seizures: No Thyroid Disease: No - Surgical History Abdominal Surgery: No Appendectomy: No Cardiac Surgery: No Cholecystectomy: No Lung Surgery: No Neurologic Surgery: No Orthopedic Surgery: Yes - Psycho/Social/Smoking Cessation Hx Anxiety: No Suicidal Ideation: No Smoking Status: Yes (quit smoking 9 days ago) Smoking History: Never smoked Have you smoked in the past 12 months: No Number of Cigarettes Smoked Daily: 0 If you are a former smoker, when did you quit?: 2012 Information on smoking cessation initiated: No 'Breaking Loose' booklet given: 04/04/13 Hx Alcohol Use: No Drug/Substance Use Hx: No Substance Use Type: None Hx Substance Use Treatment: No <Regan Brownlee - Last Filed: 08/10/16 13:05> - Past Medical History Allergies/Adverse Reactions: Allergies Allergy/AdvReac Type Severity Reaction Status Date / Time No Known Drug Allergies Allergy Verified 08/10/16 10:47 Home Medications: Ambulatory Orders Amlodipine Besylate [Norvasc -] 5 mg PO DAILY 08/10/16 Aspirin [ASA -] 81 mg PO DAILY 08/10/16 Atorvastatin Calcium 40 mg PO HS 08/10/16 Bicalutamide 50 mg PO DAILY 08/10/16 Fluticasone Prop 0.05% Nasal [Flonase -] 1 - 2 spray NS DAILY 08/10/16 Insulin Aspart [Novolog] 12 unit SQ DAILY 08/10/16 Insulin Degludec [Tresiba Flextouch U-100] 45 unit SQ DAILY 08/10/16 Multivit-Min/FA/Lycopen/Lutein [Centrum Silver Tablet] 1 each PO DAILY 08/10/16 Review of Systems - Review of Systems Able to Perform ROS?: Yes Comments:: 08/10/16 11:45 CONSTITUTIONAL: No reported: Fever, Chills, Diaphoresis, Generalized Weakness, Malaise, Loss of Appetite HEENT: No reported: Rhinorrhea, Nasal Congestion, Throat Pain, Throat Swelling, Difficulty Swallowing, Mouth Swelling, Ear Pain, Eye Pain, Visual Changes CARDIOVASCULAR: No reported: Chest Pain, Syncope, Palpitations, Irregular Heart Rate, Lightheadedness, Peripheral Edema RESPIRATORY: No reported: Cough, Shortness of Breath, SOB with Exertion, Orthopnea, Wheezing , Stridor, Hemoptysis GASTROINTESTINAL: No reported: Abdominal pain, Abdominal Distension, Nausea, Vomiting, Diarrhea, Constipation, Melena, Hematochezia GENITOURINARY: No reported: Dysuria, Frequency, Urgency, Hesitancy, Flank Pain, Genital Pain MUSCULOSKELETAL: Reported: foot ulcers. No reported: Myalgia, Arthralgia, Joint Swelling, Back pain, Neck Pain SKIN: No reported: Rash, Itching, Pallor HEMEATOLOGIC/IMMUNOLOGIC: No reported: Easy Bleeding, Easy Bruising, Lymphadenopathy, Frequent infections ENDOCRINE: No reported: Unexplained Weight Gain, Unexplained Weight Loss, Heat Intolerance , Cold Intolerance NEUROLOGIC: No reported: Headache, Focal Weakness, Paresthesias, Vertigo, Lightheadedness, Unsteady Gait, Seizure, Mental Status Changes, Incontinence PSYCHIATRIC: No reported: Anxiety, Depression <Humphrey Becerra - Last Filed: 08/10/16 11:44> *Physical Exam - Vital Signs Last Vital Signs Temp Pulse Resp BP Pulse Ox 97.8 F 90 18 118/62 100 08/10/16 10:47 08/10/16 10:47 08/10/16 10:47 08/10/16 10:47 08/10/16 10:47 - Physical Exam Comments: 08/10/16 11:45 GENERAL: The patient is awake, alert, and fully oriented, Nontoxic - in no acute distress. HEAD: Normocephalic, atraumatic. EYES: extraocular movements intact, sclera anicteric, conjunctiva clear. ENT: Normal voice, Moist mucous membranes. Poor dentition NECK: Normal range of motion, supple LUNGS: Breath sounds equal, clear to auscultation bilaterally. No wheezes, no rhonchi, no rales. HEART: Regular rate and rhythm, normal S1 and S2 without murmur, rub or gallop. ABDOMEN: Soft, nontender, normoactive bowel sounds. No guarding, no rebound. . No CVA tenderness EXTREMITIES: s/p digital amputation on LLE x 5, s/p amputation of 2 digits in RLE, wounds on lateral R foot and plantar aspect of R foot with controlled bleeding, s/p dibridement, pulses symmetric, sensation symmetric NEUROLOGICAL: No facial assymetry, Normal speech, Moving all 4 extremities spontaenously. PSYCH: Normal mood, normal affect. SKIN: Warm, Dry, normal turgor. <Humphrey Becerra - Last Filed: 08/10/16 11:44> - Vital Signs Last Vital Signs Temp Pulse Resp BP Pulse Ox 97.8 F 90 18 118/62 100 08/10/16 10:47 08/10/16 10:47 08/10/16 10:47 08/10/16 10:47 08/10/16 10:47 <Regan Brownlee - Last Filed: 08/10/16 13:05> Heart Score/ECG Review - ECG Impressions Comment:: 08/10/16 13:05 Twelve-lead EKG was performed and reviewed by me. There is normal sinus rhythm with a normal rate. Rate of 92 PVCs present Left axis deviation The intervals are normal. There is normal R wave progression There are no ST or T wave abnormalities. <Regan Brownlee - Last Filed: 08/10/16 13:05> ED Treatment Course - LABORATORY CBC & Chemistry Diagram: 08/10/16 12:00 08/10/16 12:00 - RADIOLOGY Radiology Studies Ordered: Category Date Time Status CHEST X-RAY PORTABLE* [RAD] Stat Radiology 08/10/16 10:59 Ordered <Regan Brownlee - Last Filed: 08/10/16 13:05> Medical Decision Making - Medical Decision Making 08/10/16 11:20 56y M hx of prostate ca s/p seedingin, IDDM, sent to the ED for evaluation of a foot wound by wound management - the patient saw dr. Byrd this morning who found his wound to be a large blister that was fluctuant, it was dibrided and ther was concern of a fistula forming between two wound so pt was sent to the ED. Pt has no complaints otherwise. will obtain preop labs will give vancomycin per dr. Byrd will consult ID and anticipate addmission to PMD (Dr. Carr) 08/10/16 12:55 labs reviewed case d/w dr. lundberg agree with admission to med surg pt is NPO awaiting OR for later will consult ID at request of dr. Lundberg Case discussed in detail with admitting physician including history, physical exam and ancillary studies. Admitting physician has assumed care for the patient, will follow all pending diagnostics and will complete the evaluation and treatment. <Regan Brownlee - Last Filed: 08/10/16 13:05> *DC/Admit/Observation/Transfer - Attestations Scribe Attestion: 08/10/16 11:46 Documentation prepared by Humphrey Becerra, acting as medical billing manager for Regan Brownlee MD. <Humphrey Becerra - Last Filed: 08/10/16 11:44> - Discharge Dispostion Admit: Yes <Regan Brownlee - Last Filed: 08/10/16 13:05> Diagnosis at time of Disposition: IDDM (insulin dependent diabetes mellitus), Foot infection - Discharge Dispostion Condition at time of disposition: Stable - Referrals Referrals: Darren Carr [Primary Care Provider] -
[2016-08-10 12:12] LABS: BASOPHIL 1.3 % (0-2.0); EOSINOPHIL 2.8 % (0-4.5); MCH 28.1 pg (25.7-33.7); MCHC 34.4 g/dl (32.0-35.9); MEAN CELL VOLUME 81.7 fl (80-96); MEAN PLT VOLUME 8.1 fl (7.5-11.1); NEUTROPHILS 66.4 % (42.8-82.8); PLATELET COUNT 333 K/MM3 (134-434); RDW 16.4 % (11.9-15.9); WHITE BLOOD COUNT 10.2 K/mm3 (4.0-10.0)
[2016-08-10 12:25] LABS: INR 1.07 (0.82-1.09); PROTHROMBIN TIME (PATIENT) 11.8 SEC (9.98-11.88)
[2016-08-10 12:33] LABS: ALBUMIN 3.7 g/dl (3.4-5.0); BILIRUBIN,TOTAL 0.6 mg/dL (0.2-1.0); CALCIUM 9.7 mg/dL (8.5-10.1); CREATININE 1.3 mg/dL (0.7-1.3); TOT PROT 7.8 g/dl (6.4-8.2)
[2016-08-10 12:58] LABS: URINE APPEARANCE CLEAR; URINE BILIRUBIN NEGATIVE (NEGATIVE); URINE BLOOD NEGATIVE (NEGATIVE); URINE COLOR LTYELLOW; URINE GLUCOSE (UA) 3+ (NEGATIVE); URINE KETONE NEGATIVE (NEGATIVE); URINE LEUK ESTERASE NEGATIVE (NEGATIVE); URINE NITRITE NEGATIVE (NEGATIVE); URINE PROTEIN NEGATIVE (NEGATIVE); URINE UROBILINOGEN NEGATIVE E.U./dl (0.2-1.0)
--- NOTE | 2016-08-10 15:19 | EKG ---
Test Reason : Blood Pressure : / mmHG Vent. Rate : 092 BPM Atrial Rate : 092 BPM P-R Int : 158 ms QRS Dur : 094 ms QT Int : 362 ms P-R-T Axes : 036 -34 028 degrees QTc Int : 447 ms SINUS RHYTHM WITH OCCASIONAL PREMATURE VENTRICULAR COMPLEXES LEFT AXIS DEVIATION ABNORMAL ECG WHEN COMPARED WITH ECG OF 30-JUL-2016 14:21, PREMATURE VENTRICULAR COMPLEXES ARE NOW PRESENT Confirmed by RICCI BROWN, TRINY ([id number]) on 08/10/2016 3:19:24 PM Referred By: Confirmed By:TRINY WYNNE MD
[2016-08-10] MEDS ORDERED: LIDOCAINE HCL 2% (20ML MULTI-DOSE VIAL) NR ONE (15:37)
[2016-08-10] MEDS ORDERED: LIDOCAINE HCL 1%, 10 MG/ML (20ML VIAL) ONE (16:16)
[2016-08-10] MEDS ORDERED: LIDOCAINE HCL 1%, 10 MG/ML (20ML VIAL) INF ONE (16:20)
[2016-08-10] MEDS ORDERED: ONDANSETRON 4 MG/2 ML VIAL IVPUSH PRN (16:28)
[2016-08-10] MEDS ORDERED: BACITRACIN 50,000 UNITS VIAL NR ONE (16:29)
[2016-08-10] MEDS ORDERED: LACTATED RINGERS SOLUTION 1,000 ML IV SCH (16:30)
--- NOTE | 2016-08-10 16:57 | HP ---
Admitting History and Physical - Primary Care Physician PCP: Nick Le - Admission Chief Complaint: RIGHT FOOT INFECTION History of Present Illness: The patient is a 56 year old male, with a significant past medical history of DM (s/p multiple toe amputations), HTN, HL, prostate CA (seed implants), who was sent to the ER to go to the OR by his burrer machine, and presents with pre- existing right foot wound/ulcer. Patient reports seeing this morning who sent him over to the ER. The pt has been having poor bgm control the past few weeks, dr. Byrd dibrided his wound in his office and was concerned about possible fistula so was sent to the ER for evaluation and surgical intervention later today . He reports not eating anything since 6: 00am. He reports being here 07/30/16 with nausea, vomiting, and dehydration. He reports since being discharged feeling fine, but does note having abnormally high blood sugar, last known reading was patient states was 495. He denies chest pain and shortness of breath. He denies fever, chills, headache and dizziness. He denies fever/chills, cough, nausea, vomit, diarrhea and constipation. History Source: Patient Limitations to Obtaining History: No Limitations - Past Medical History DIRECTOR FUNDS DEVELOPMENT: Yes: Peripheral Neuropathy, Other (IDDM) Cardiovascular: Yes: HTN, Hyperlipdemia, Other (peripheral vascular disease) Musculoskeletal: Yes: Osteoarthritis Endocrine: Yes: Diabetes Mellitus (Insulin dependent) - Smoking History Smoking history: Former smoker Have you smoked in the past 12 months: No Aproximately how many cigarettes per day: 0 If you are a former smoker, when did you quit?: 2013 - Alcohol/Substance Use Hx Alcohol Use: No - Social History History of Recent Travel: No Home Medications - Allergies Allergies/Adverse Reactions: Allergies Allergy/AdvReac Type Severity Reaction Status Date / Time No Known Drug Allergies Allergy Verified 08/10/16 10:47 - Home Medications Home Medications: Ambulatory Orders Amlodipine Besylate [Norvasc -] 5 mg PO DAILY 08/10/16 Aspirin [ASA -] 81 mg PO DAILY 08/10/16 Atorvastatin Calcium 40 mg PO HS 08/10/16 Bicalutamide 50 mg PO DAILY 08/10/16 Fluticasone Prop 0.05% Nasal [Flonase -] 1 - 2 spray NS DAILY 08/10/16 Insulin Aspart [Novolog] 12 unit SQ DAILY 08/10/16 Insulin Degludec [Tresiba Flextouch U-100] 45 unit SQ DAILY 08/10/16 Multivit-Min/FA/Lycopen/Lutein [Centrum Silver Tablet] 1 each PO DAILY 08/10/16 Family Disease History - Family Disease History Family Disease History: Diabetes: Father Review of Systems - Review of Systems Constitutional: reports: Loss of Appetite, Night Sweats Eyes: reports: No Symptoms HENT: reports: No Symptoms Neck: reports: No Symptoms Cardiovascular: reports: No Symptoms Respiratory: reports: No Symptoms Gastrointestinal: reports: No Symptoms Genitourinary: reports: No Symptoms Musculoskeletal: reports: Joint Pain, Joint Swelling, Muscle Pain Integumentary: reports: Eczema, Erythema, Rash, Wound Neurological: reports: Other Endocrine: reports: Other Physical Examination Vital Signs: Vital Signs Temperature 97.8 F 08/10/16 10:47 Pulse Rate 83 08/10/16 14:30 Respiratory Rate 18 08/10/16 14:30 Blood Pressure 109/61 08/10/16 14:30 O2 Sat by Pulse Oximetry (%) 100 08/10/16 10:47 Constitutional: Yes: Mild Distress Eyes: Yes: WNL HENT: Yes: WNL Neck: Yes: WNL Cardiovascular: Yes: WNL Respiratory: Yes: WNL Gastrointestinal: Yes: WNL Renal/: Yes: WNL Musculoskeletal: Yes: Joint Swelling, Muscle Weakness Extremities: Yes: Amputation, Erythema Edema: Yes Peripheral Pulses WNL: Yes Integumentary: Yes: Pressure Ulcer, Venous Stasis Changes Wound/Incision: Yes: Open to air, Unapproximated Neurological: Yes: Pre-Existing Deficit, Unsteady Gait, Weakness ...Motor Strength: LLE, RLE Psychiatric: Yes: Other Problem List - Problems (1) Foot infection Code(s): L08.9 - LOCAL INFECTION OF THE SKIN AND SUBCUTANEOUS TISSUE, UNSP (2) IDDM (insulin dependent diabetes mellitus) Code(s): E11.9 - TYPE 2 DIABETES MELLITUS WITHOUT COMPLICATIONS Z79.4 - AUTOMATIC GLOVE TURNER AND FORMER (CURRENT) USE OF INSULIN (3) Abscess of plantar aspect of foot Code(s): L02.619 - CUTANEOUS ABSCESS OF UNSPECIFIED FOOT Assessment/Plan SURGERY WITH PODIATRY DIABETES BGM CONTROL IV ABX PER ID DVT PROPHYLAXIS SNF
[2016-08-10] MEDS ORDERED: ACETAMINOPHEN 325 MG TABLET (FP) PO PRN (17:01)
--- NOTE | 2016-08-10 17:06 | OP ---
Operative Note - Note: Operative Date: 08/10/16 Pre-Operative Diagnosis: R DM foot infection, abscess Operation: R foot incision and drainage, debridement and lavage Post-Operative Diagnosis: Same as Pre-op Surgeon: Antonio Byrd Anesthesia: Local, MAC Specimens Removed: Abscess right foot Estimated Blood Loss (mls): 10 Instrument used (Debridements only): #15 blade scalpel and scissors Operative Report Dictated: Yes
[2016-08-10] MEDS ORDERED: INSULIN (NOVOLOG) ASPART 100 UNITS/ML 10ML VIAL ONE (21:16)
[2016-08-10] MEDS: DOCUSATE SODIUM 100 MG CAPSULE (FP) PO SCH (21:32)
[2016-08-10] MEDS: ATORVASTATIN CA 40 MG TABLET (FP) PO SCH (21:32)
[2016-08-10] MEDS: INSULIN SLIDING SCALE (NOVOLOG) 1 VIAL SQ SCH (21:33)
[2016-08-10] MEDS: INSULIN DETEMIR 100 UNITS/ML MDV SQ SCH (21:34)
[2016-08-11] MEDS: oxyCODONE HCL 5 MG TABLET PO PRN (01:23)
[2016-08-11] MEDS: INSULIN SLIDING SCALE (NOVOLOG) 1 VIAL SQ SCH ×4 (06:27→22:29)
[2016-08-11 06:56] LABS: MCH 27.9 pg (25.7-33.7); MCHC 33.9 g/dl (32.0-35.9); MEAN CELL VOLUME 82.2 fl (80-96); MEAN PLT VOLUME 8.2 fl (7.5-11.1); PLATELET COUNT 321 K/MM3 (134-434); RDW 16.3 % (11.9-15.9); WHITE BLOOD COUNT 9.7 K/mm3 (4.0-10.0)
[2016-08-11 07:18] LABS: ALBUMIN 3.3 g/dl (3.4-5.0); ANION GAP 5 (8-16); CALCIUM 9.1 mg/dL (8.5-10.1); CO2 31 mmol/L (21-32); CREATININE 1.2 mg/dL (0.7-1.3); GLUCOSE,RANDOM 208 mg/dL (74-106); MAGNESIUM 2.1 mg/dL (1.8-2.4); SGOT/AST 16 U/L (15-37); SGPT/ALT 30 U/L (12-78)
[2016-08-11 07:23] LABS: ALK PHOS 133 U/L (45-117); BILIRUBIN,TOTAL 0.7 mg/dL (0.2-1.0); CHOLESTEROL 107 mg/dL (50-200); LDL CHOLESTEROL (ONLY SJRH) 58 mg/dL (5-100); TOT PROT 6.8 g/dl (6.4-8.2)
[2016-08-11] MEDS: amLODIPine BESYLATE 10 MG TABLET (FP) PO SCH (09:10)
--- NOTE | 2016-08-11 10:42 | PN ---
Progress Note (short form) - Note Progress Note: ID Consult dictated S/P I&D R foot abscess Hx diabetic foot infections Hx MRSA Await c/s Obtain ESR/CRP Empiric vancomycin/ zosyn
--- NOTE | 2016-08-11 11:02 | PN ---
Progress Note, Physician Chief Complaint: AWAKE ALERT IN [facility] - Current Medication List Current Medications: Active Medications Acetaminophen (Tylenol -) 650 mg PO Q6H PRN PRN Reason: FEVER OR PAIN Amlodipine Besylate (Norvasc -) 10 mg PO DAILY [facility] Last Admin: 08/11/16 09:10 Dose: 10 mg Atorvastatin Calcium (Lipitor -) 40 mg PO [facility] Last Admin: 08/10/16 21:32 Dose: 40 mg Docusate Sodium (Colace -) 300 mg PO [facility] Last Admin: 08/10/16 21:32 Dose: Not Given Vancomycin HCl (Vancomycin (Pre-Docked)) 250 mls @ 200 mls/hr IVPB BID [facility] Piperacillin Sod/Tazobactam Sod (Zosyn 3.375gm Ivpb (Pre-Docked)) 50 mls @ 100 mls/hr IVPB Q8H-IV [facility] PRN Reason: Protocol Insulin Aspart (Novolog Vial Sliding Scale -) [address] [facility] PRN Reason: Protocol Last Admin: 08/11/16 06:27 Dose: 3 units Insulin Detemir (Levemir Vial) 30 units SQ [facility] Last Admin: 08/10/16 21:34 Dose: 30 units Oxycodone HCl (Roxicodone -) 5 mg PO Q4H PRN PRN Reason: PAIN LEVEL 1-5 Last Admin: 08/11/16 01:23 Dose: 5 mg - Objective Vital Signs: Vital Signs Temperature 98.4 F 08/11/16 09:01 Pulse Rate 94 H 08/11/16 09:01 Respiratory Rate 18 08/11/16 09:01 Blood Pressure 108/66 08/11/16 09:01 O2 Sat by Pulse Oximetry (%) 97 08/11/16 09:00 Constitutional: Yes: Mild Distress Eyes: Yes: WNL HENT: Yes: WNL Neck: Yes: WNL Cardiovascular: Yes: WNL Respiratory: Yes: WNL Gastrointestinal: Yes: WNL Genitourinary: Yes: WNL Musculoskeletal: Yes: Muscle Weakness Extremities: Yes: Other Edema: Yes Edema: LLE: Trace, RLE: Trace Peripheral Pulses WNL: Yes Integumentary: Yes: Pressure Ulcer, Skin Tear Wound/Incision: Yes: Dressing Dry and Intact, Draining, Unapproximated Neurological: Yes: Pre-Existing Deficit ...Motor Strength: LLE, RLE Psychiatric: Yes: Other Labs: CBC, BMP 08/11/16 06:00 08/11/16 06:00 INR, PTT INR 1.07 (0.82-1.09) 08/10/16 12:00 Problem List - Problems (1) Foot infection Code(s): L08.9 - LOCAL INFECTION OF THE SKIN AND SUBCUTANEOUS TISSUE, UNSP (2) IDDM (insulin dependent diabetes mellitus) Code(s): E11.9 - TYPE 2 DIABETES MELLITUS WITHOUT COMPLICATIONS Z79.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
[2016-08-11] MEDS: VANCOMYCIN 1 GRAM (PRE-DOCKED) 250 ML IVPB SCH ×2 (11:06→22:33)
[2016-08-11] MEDS: PIPERACILLIN/TAZOB 3.375 GM 50 ML IVPB SCH ×2 (11:07→17:30)
--- NOTE | 2016-08-11 12:28 | PN ---
Progress Note (short form) - Note Progress Note: Podiatry: Seen and evaluated at bedside, NAD. Pain improved, denies F/V/N/C/SOB/CP. Afebrile, VSS. S/p R foot incision and drainage of abscess POD # 1. SMITHA: R foot: dressing C/D/I, no active bleeding, no strikethrough. Large post- surgical wound lateral midfoot, underlying granular tissue, communicates with plantar midfoot Charcot ulcer. Sutures well coapted in the middle of fistula. No active dehiscence. On compression, no purulence, no fluctuance, no ST crepitus, no streaking cellulitis, no signs of active infection. Decreasing tenderness to palpation of wound. WBC: 9.7 OR Cx: pending Imp: 56 year old DM M s/p R foot incision and drainage POD #1 1. C/w IV abx per ID 2. Awaiting OR cultures 3. Non-WB R foot 4. Will follow Lisa Byrd DPM
--- NOTE | 2016-08-11 16:29 | CONS ---
INFECTIOUS DISEASE CONSULTATION DATE OF CONSULTATION: DATE OF DICTATION: 08/11/2016 HISTORY OF PRESENT ILLNESS: Patient is a 56-year-old diabetic male evaluated for diabetic foot infection. He was recently admitted to the hospital for treatment of acute gastroenteritis. Patient has history of diabetic foot infections in the past. He did not give a reliable history. He apparently had developed a blister on his right foot several days prior to admission and had noticed purulent drainage from the area. [facility] where an incision and drainage was performed. According to the notes, ang pus was drained. He is now admitted for further evaluation and IV antibiotic therapy. He has no complaints of pain at the present time. He has been afebrile with a normal white blood cell count. He has had a history of diabetic foot infections in the past, and pathogens have included MRSA and pseudomonas. PAST MEDICAL HISTORY: Past medical history positive for: 1. Diabetes mellitus 2. Diabetic foot infections 3. History of a serious right foot infection, which extended into the right thigh 4. Prostate cancer 5. Hypertension 6. Hyperlipidemia 7. Peripheral vascular disease PAST SURGICAL HISTORY: Status post prostate seed implants ALLERGIES: No known allergies. MEDICATIONS: 1. Amlodipine 2. Lipitor 3. NovoLog 4. Aspirin SOCIAL HISTORY: Lives alone. Non-smoker. SYSTEMS REVIEW: Neurologic: No loss of consciousness, seizure activity, focal weakness Cardiac: Negative chest pain or palpitations Respiratory: Negative cough or sputum production Gastrointestinal: Negative vomiting or diarrhea Genitourinary: Negative for urinary tract infection LAB DATA: White count 9.7, hematocrit 35.5, platelet count 321, BUN 18, creatinine 1.2 . Urine: leukocyte esterase negative. Wound culture is pending. Previous wound cultures have grown pseudomonas and MRSA. RADIOGRAPHIC FINDINGS: Negative chest x-ray. Negative for acute infiltrate PHYSICAL EXAMINATION: General: He is in no acute distress. Vital signs: Temperature 98.4, blood pressure 108/66, pulse 94/regular, respirations 18 per minute. HEENT: Sclera anicteric Heart: Heart sounds S1, S2 Lungs: Clear Abdomen: Soft, no tenderness. No mass, rebound or rigidity. Extremities: Postoperative dressing in place, right foot. Left foot status post transmetatarsal amputation with callus formation on the plantar aspect of the foot. IMPRESSION: 1. Right foot abscess status post incision and drainage. 2. Diabetic foot infection. 3. Possible sepsis secondary to foot infection. RECOMMENDATIONS: 1. Obtained blood cultures. 2. Sedimentation rate. 3. C-reactive protein 4. Empiric antibiotic coverage with vancomycin and Zosyn, pending cultures. 5. Local wound care. 6. Will follow. JOANNA VARGHESE M.D. [id number]
--- NOTE | 2016-08-11 19:51 | OP ---
DATE OF OPERATION: 08/10/2016 PREOPERATIVE DIAGNOSIS: Right diabetic foot infection. POSTOPERATIVE DIAGNOSIS: Right diabetic foot infection. PROCEDURE: Right foot incision and drainage, debridement and lavage. SURGEON: Antonio Byrd DPM CHEMICAL ENGINEERING TEACHER: None. HEMOSTASIS: None. ANESTHESIA: Local with IV sedation. ESTIMATED BLOOD LOSS: Minimal. PATHOLOGY: Abscess, right foot. COMPLICATIONS: None. DESCRIPTION OF PROCEDURE: The patient was brought to the operating room and placed on the operating table in the supine position. I elected to not use hemostasis during the course of this procedure. Following the induction of IV sedation local anesthesia was achieved utilizing 18 mL of 2% lidocaine plain. The right foot was then scrubbed, prepped, and draped in the usual aseptic fashion. Attention was directed to the right lateral midfoot where an infected ulcer that communicated with the Charcot mid-foot ulcer was visualized and appreciated. I began by making a transverse incision from the lateral ulcer to the plantar mid-foot Charcot ulcer. Immediately upon incision there was liquefactive purulent tissue expressed from the wound. The incision was deepened until all planes of the infection were cleared. Debridement was performed until there was viable granular tissue present. Debridement was performed through subcutaneous tissue utilizing combination of 15 blade and scissors. Once the fistula was cleaned out, the surgical site was copiously irrigated with 3 L of sterile saline mixed with bacitracin in a pulse lavage fashion. There was viable tissue remaining after debridement. The surgical site was packed with one-quarter inch iodoform packing. The transverse incision was coapted and maintained with loose 3-0 nylon sutures. Following the conclusion of the procedure, surgical site was covered with Xeroform and a sterile compressive dressing was applied to the right foot consisting of sterile gauze, Omar, Kerlix and an Rafa wrap. The patient tolerated the procedure well without any complications. He was transferred from the operating room to the recovery unit with vital signs stable and neurovascular intact to the right foot. PHILIP HAWKINS/[id number] CC: [facility]
--- NOTE | 2016-08-11 20:02 | OP ---
DATE OF OPERATION: 08/10/2016 PREOPERATIVE DIAGNOSIS: Right foot diabetic foot infection. POSTOPERATIVE DIAGNOSIS: Right foot diabetic foot infection. PROCEDURE: Right foot incision and drainage, debridement and lavage. SURGEON: Antonio Byrd DPM PRIMER AND POWDER CANNING LEADER: None. HEMOSTASIS: None. ANESTHESIA: Local with IV sedation. ESTIMATED BLOOD LOSS: Minimal. PATHOLOGY: Abscess, right foot. DESCRIPTION OF PROCEDURE: The patient was brought to the operating room and placed on the operating table in the supine position. Following the induction of IV sedation, local anesthesia was achieved utilizing 18 mL of lidocaine plain. I elected to not use hemostasis during the course of this procedure. The right foot was then scrubbed, prepped, and draped in the usual aseptic fashion. Attention was directed to the right foot where a lateral mid-foot infected ulcer that communicated with a plantar mid-foot ulcer, was visualized and appreciated. I began by making an incision transversely, communicating 1 ulcer to the next. This ulcer fistulized and immediately upon incision, there was liquefactive purulent material expressed from the wound. Soft tissue culture was obtained. The lateral mid-foot ulcer was debrided sharply using a combination of sterile 15 blade and scissors until healthy viable tissue persisted. Next, I continued dissection transversely and all planes of the infection were cleaned out appropriately. Once debridement was completed, there was viable granular tissue present. The surgical site was copiously irrigated with sterile saline mixed with bacitracin in a pulse lavage fashion. The surgical site was packed loosely and the transverse incision was loosely coapted and maintained utilizing 3-0 nylon. Following the conclusion of the procedure, Xeroform was applied to the wound followed by sterile compressive dressing consisting of sterile gauze, Omar, Kerlix and an Rafa wrap. The patient tolerated the procedure and anesthesia well without complication. He was transferred from the operating room to the recovery unit with vital signs stable and neurovasculature intact to there right foot. PHILIP HAWKINS/[id number] CC: [facility]
[2016-08-11] MEDS: INSULIN DETEMIR 100 UNITS/ML MDV SQ SCH (22:31)
[2016-08-11] MEDS: DOCUSATE SODIUM 100 MG CAPSULE (FP) PO SCH (22:32)
[2016-08-11] MEDS: ATORVASTATIN CA 40 MG TABLET (FP) PO SCH (22:32)
[2016-08-12] MEDS: PIPERACILLIN/TAZOB 3.375 GM 50 ML IVPB SCH ×2 (02:37→09:55)
[2016-08-12] MEDS: INSULIN SLIDING SCALE (NOVOLOG) 1 VIAL SQ SCH ×4 (06:13→21:18)
--- NOTE | 2016-08-12 08:42 | PN ---
Progress Note (short form) - Note Progress Note: Podiatry: Seen and evaluated at bedside, NAD. Pain improved to R foot, denies F/V/N/C/SOB /CP. Afebrile, VSS. S/p R foot incision and drainage of abscess POD # 2. SMITHA: R foot: dressing C/D/I, no active bleeding, no strikethrough. Post-surgical wound lateral midfoot mostly granular base, no purulence, no fluctuance, mild periwound erythema however improving, no streaking cellulitis, no ST crepitus, no signs of active infection. Mild tenderness to palpation. Plantar midfoot Charcot ulcer granular base, no purulence, no fluctuance. Sutures coapted at the center of incision site, no dehiscence noted. WBC: 9.7 from yesterday CRP: 4.8 ESR: pending OR Cx: pending Imp: 56 year old DM M s/p R foot incision and drainage of abscess POD # 2 1. C/w IV abx per ID. May need IV Abx treatment. 2. Saline-moistened gauze + DSD R foot. 3. Will order [facility] for local wound care. Patient is currently refusing home nursing services. 4. Non-WB R foot. 5. Infection showing improvement. Will discharge over next 2 days if infection continues to improve. 6. Upon d/c will f/u with me in [facility] 08/17/16. 7. Will follow. Lisa Byrd DPM
[2016-08-12] MEDS: amLODIPine BESYLATE 10 MG TABLET (FP) PO SCH (09:55)
[2016-08-12] MEDS: VANCOMYCIN 1 GRAM (PRE-DOCKED) 250 ML IVPB SCH (09:56)
[2016-08-12] MEDS: SODIUM HYPOCHLORITE 0.25%- 473 ML BULK BOTTLE TP SCH (10:53)
--- NOTE | 2016-08-12 10:59 | PN ---
Progress Note, Physician Chief Complaint: no distress awake alert - Current Medication List Current Medications: Active Medications Acetaminophen (Tylenol -) 650 mg PO Q6H PRN PRN Reason: FEVER OR PAIN Amlodipine Besylate (Norvasc -) 10 mg PO DAILY [facility] Last Admin: 08/12/16 09:55 Dose: 10 mg Atorvastatin Calcium (Lipitor -) 40 mg PO HS [facility] Last Admin: 08/11/16 22:32 Dose: 40 mg Docusate Sodium (Colace -) 300 mg PO HS [facility] Last Admin: 08/11/16 22:32 Dose: 300 mg Vancomycin HCl (Vancomycin (Pre-Docked)) 250 mls @ 200 mls/hr IVPB BID [facility] Last Admin: 08/12/16 09:56 Dose: 200 mls/hr Piperacillin Sod/Tazobactam Sod (Zosyn 3.375gm Ivpb (Pre-Docked)) 50 mls @ 100 mls/hr IVPB Q8H-IV [facility] PRN Reason: Protocol Last Admin: 08/12/16 09:55 Dose: 100 mls/hr Insulin Aspart (Novolog Vial Sliding Scale -) 1 vial SQ ACHS [facility] PRN Reason: Protocol Last Admin: 08/12/16 10:53 Dose: 7 units Insulin Detemir (Levemir Vial) 30 units SQ [facility] Last Admin: 08/11/16 22:31 Dose: 30 units Oxycodone HCl (Roxicodone -) 5 mg PO Q4H PRN PRN Reason: PAIN LEVEL 1-5 Last Admin: 08/11/16 01:23 Dose: 5 mg Sodium Hypochlorite (Dakin's Solution 0.25% (Half-Strength) -) 1 applic TP DAILY [facility] Last Admin: 08/12/16 10:53 Dose: Not Given - Objective Vital Signs: Vital Signs Temperature 98.2 F 08/12/16 09:00 Pulse Rate 61 08/12/16 09:00 Respiratory Rate 17 08/12/16 09:00 Blood Pressure 114/60 08/12/16 09:00 O2 Sat by Pulse Oximetry (%) 97 08/11/16 21:00 Constitutional: Yes: Calm Cardiovascular: Yes: Regular Rate and Rhythm, S1, S2 Respiratory: Yes: CTA Bilaterally Gastrointestinal: Yes: Normal Bowel Sounds, Soft Extremities: Yes: Other (right foot dresing) Neurological: Yes: Alert, Oriented Labs: CBC, BMP 08/11/16 06:00 08/11/16 06:00 INR, PTT INR 1.07 (0.82-1.09) 08/10/16 12:00 Problem List - Problems (1) Foot infection Assessment/Plan: right foot I/D day 2 iv abx vacno and zosyn cultures pending Code(s): L08.9 - LOCAL INFECTION OF THE SKIN AND SUBCUTANEOUS TISSUE, UNSP (2) IDDM (insulin dependent diabetes mellitus) Assessment/Plan: bgm high increased dose of levemir insulin Code(s): E11.9 - TYPE 2 DIABETES MELLITUS WITHOUT COMPLICATIONS 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
[2016-08-12] MEDS ORDERED: VANCOMYCIN 1,000 MG in SODIUM CHLORIDE 250 ML IVPB SCH (11:42)
[2016-08-12] MEDS: VANCOMYCIN 1,000 MG in SODIUM CHLORIDE 250 ML IVPB SCH ×2 (14:35→21:18)
[2016-08-12] MEDS ORDERED: PT OWN MED DRAWER 7, Y5N ONE ×2 (17:03→21:05)
[2016-08-12] MEDS: PIPERACILLIN/TAZOB 3.375 GM 3.375 GM in SODIUM CHLORIDE 50 ML IVPB SCH (17:13)
[2016-08-12] MEDS: HEPARIN NA (PORCINE) 5,000 UNITS/ML 1ML VIAL SQ SCH (21:14)
[2016-08-12] MEDS: ATORVASTATIN CA 40 MG TABLET (FP) PO SCH (21:15)
[2016-08-12] MEDS: DOCUSATE SODIUM 100 MG CAPSULE (FP) PO SCH (21:16)
[2016-08-12] MEDS: INSULIN DETEMIR 100 UNITS/ML MDV SQ SCH (21:17)
[2016-08-13] MEDS: PIPERACILLIN/TAZOB 3.375 GM 3.375 GM in SODIUM CHLORIDE 50 ML IVPB SCH ×3 (01:07→17:59)
[2016-08-13] MEDS ORDERED: INSULIN (NOVOLOG) ASPART 100 UNITS/ML 10ML VIAL ONE ×3 (05:31→19:43)
[2016-08-13] MEDS: INSULIN SLIDING SCALE (NOVOLOG) 1 VIAL SQ SCH ×4 (06:06→21:58)
[2016-08-13 07:26] LABS: BASOPHIL 0.8 % (0-2.0); EOSINOPHIL 4.2 % (0-4.5); MCH 28.1 pg (25.7-33.7); MCHC 34.6 g/dl (32.0-35.9); MEAN CELL VOLUME 81.3 fl (80-96); MEAN PLT VOLUME 8.4 fl (7.5-11.1); NEUTROPHILS 67.8 % (42.8-82.8); PLATELET COUNT 305 K/MM3 (134-434); RDW 16.5 % (11.9-15.9); WHITE BLOOD COUNT 7.7 K/mm3 (4.0-10.0)
[2016-08-13 07:42] LABS: ALBUMIN 3.2 g/dl (3.4-5.0); BILIRUBIN,TOTAL 0.8 mg/dL (0.2-1.0); CALCIUM 8.8 mg/dL (8.5-10.1); CREATININE 1.3 mg/dL (0.7-1.3); TOT PROT 6.8 g/dl (6.4-8.2)
--- NOTE | 2016-08-13 08:39 | PN ---
Progress Note, Physician Chief Complaint: WBC trending down 7.7 today afebrile no complaints on iv abx - Current Medication List Current Medications: Active Medications Acetaminophen (Tylenol -) 650 mg PO Q6H PRN PRN Reason: FEVER OR PAIN Amlodipine Besylate (Norvasc -) 10 mg PO DAILY [facility] Last Admin: 08/12/16 09:55 Dose: 10 mg Atorvastatin Calcium (Lipitor -) 40 mg PO HS [facility] Last Admin: 08/12/16 21:15 Dose: 40 mg Bicalutamide (Casodex -) 50 mg PO DAILY [facility] Docusate Sodium (Colace -) 300 mg PO HS [facility] Last Admin: 08/12/16 21:16 Dose: 300 mg Heparin Sodium (Porcine) (Heparin -) 5,000 unit SQ BID [facility] Last Admin: 08/12/16 21:14 Dose: 5,000 unit Piperacillin Sod/Tazobactam (Sod 3.375 gm/ Sodium Chloride) 50 mls @ 100 mls/ hr IVPB Q8H-IV [facility] PRN Reason: Protocol Last Admin: 08/13/16 01:07 Dose: 100 mls/hr Vancomycin HCl 1,000 mg/ (Sodium Chloride) 250 mls @ 166.667 mls/hr IVPB BID [facility] Last Admin: 08/12/16 21:18 Dose: 166.667 mls/hr Insulin Aspart (Novolog Vial Sliding Scale -) 1 vial SQ ACHS [facility] PRN Reason: Protocol Last Admin: 08/13/16 06:06 Dose: Not Given Insulin Detemir (Levemir Vial) 35 units SQ HS [facility] Last Admin: 08/12/16 21:17 Dose: 35 unit Oxycodone HCl (Roxicodone -) 5 mg PO Q4H PRN PRN Reason: PAIN LEVEL 1-5 Last Admin: 08/11/16 01:23 Dose: 5 mg Sodium Hypochlorite (Dakin's Solution 0.25% (Half-Strength) -) 1 applic TP DAILY [facility] Last Admin: 08/12/16 10:53 Dose: Not Given - Objective Vital Signs: Vital Signs Temperature 97.3 F L 08/12/16 19:03 Pulse Rate 77 08/12/16 19:03 Respiratory Rate 20 08/12/16 20:40 Blood Pressure 128/69 08/12/16 19:03 O2 Sat by Pulse Oximetry (%) 99 08/12/16 20:40 Constitutional: Yes: Calm Neck: Yes: Trachea Midline Cardiovascular: Yes: Regular Rate and Rhythm, S1, S2 Respiratory: Yes: CTA Bilaterally Gastrointestinal: Yes: Normal Bowel Sounds, Soft Extremities: Yes: Other (both feet are wrapped) Neurological: Yes: Alert, Oriented Labs: CBC, BMP 08/13/16 06:00 08/13/16 06:00 INR, PTT INR 1.07 (0.82-1.09) 08/10/16 12:00 Problem List - Problems (1) Foot infection Assessment/Plan: right foot I/D day 3 iv abx vacno and zosyn Microbiology 08/10/16 18:20 Abscess Gram Stain - Final 08/10/16 18:20 Abscess Body Fluid Culture - Preliminary Group D Strep Or Entero Coccus Staphylococcus Coagulase Neg Streptococcus Viridans abx duration per ID will get ID follow up Code(s): L08.9 - LOCAL INFECTION OF THE SKIN AND SUBCUTANEOUS TISSUE, UNSP (2) IDDM (insulin dependent diabetes mellitus) Assessment/Plan: bgm high increased dose of levemir bgm better today abx switch to NS Code(s): E11.9 - TYPE 2 DIABETES MELLITUS WITHOUT COMPLICATIONS 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
--- NOTE | 2016-08-13 09:27 | PATH ---
Surgical Pathology Report Patient Name: STEVE CALDERON Med. Rec. #: [id number] /Age/Gender: 1960 (Age: 56) / M Account: [id number] Location: [facility] MED/SURG Taken: 08/10/2016 Received: 08/11/2016 Reported: 08/13/2016 Physicians: PHYSICIAN EMERGENCY DEPT Specimen(s) Received ABSCESS RIGHT FOOT Clinical History Right foot abscess Final Diagnosis SOFT TISSUE, RIGHT FOOT, DEBRIDEMENT: GANGRENOUS NECROSIS. Electronically Signed Darren Siegel M.D. Gross Description Received in formalin, labeled "abscess right foot," is a 2.0 x 1.5 x 0.3 cm aggregate of anaya, necrotic skin and soft tissue fragments. The specimen is submitted in toto in one cassette. /08/11/201608/11/2016
[2016-08-13] MEDS: amLODIPine BESYLATE 10 MG TABLET (FP) PO SCH (10:11)
[2016-08-13] MEDS: VANCOMYCIN 1,000 MG in SODIUM CHLORIDE 250 ML IVPB SCH ×2 (10:11→21:59)
[2016-08-13] MEDS: HEPARIN NA (PORCINE) 5,000 UNITS/ML 1ML VIAL SQ SCH ×2 (10:12→22:00)
[2016-08-13] MEDS: BICALUTAMIDE 50 MG TABLET (FP) PO SCH (12:31)
[2016-08-13] MEDS ORDERED: PT OWN MED DRAWER 7, Y5N ONE (16:55)
[2016-08-13] MEDS: SODIUM HYPOCHLORITE 0.25%- 473 ML BULK BOTTLE TP SCH (17:59)
[2016-08-13] MEDS: oxyCODONE HCL 5 MG TABLET PO PRN (19:46)
[2016-08-13] MEDS: INSULIN DETEMIR 100 UNITS/ML MDV SQ SCH (21:58)
[2016-08-13] MEDS: ATORVASTATIN CA 40 MG TABLET (FP) PO SCH (21:58)
[2016-08-13] MEDS: DOCUSATE SODIUM 100 MG CAPSULE (FP) PO SCH (21:58)
[2016-08-14] MEDS: oxyCODONE HCL 5 MG TABLET PO PRN (01:33)
[2016-08-14] MEDS: PIPERACILLIN/TAZOB 3.375 GM 3.375 GM in SODIUM CHLORIDE 50 ML IVPB SCH ×3 (01:39→17:39)
[2016-08-14] MEDS: INSULIN SLIDING SCALE (NOVOLOG) 1 VIAL SQ SCH ×4 (06:31→22:02)
[2016-08-14 07:59] LABS: EOSINOPHIL 4.8 % (0-4.5); MCH 28.1 pg (25.7-33.7); MCHC 34.3 g/dl (32.0-35.9); MEAN CELL VOLUME 81.8 fl (80-96); MEAN PLT VOLUME 8.1 fl (7.5-11.1); NEUTROPHILS 63.9 % (42.8-82.8); PLATELET COUNT 272 K/MM3 (134-434); RDW 16.3 % (11.9-15.9); WHITE BLOOD COUNT 7.6 K/mm3 (4.0-10.0)
--- NOTE | 2016-08-14 08:01 | PN ---
Progress Note (short form) - Note Progress Note: Podiatry: Seen and evaluated at bedside, NAD. Pain well controlled, denies F/V/N/C/SOB/ CP. Afebrile, VSS. S/p R foot incision and drainage of abscess. SMITHA: R foot: dressing C/D/I, no active bleeding, no strikethrough. Post-surgical wound lateral midfoot mostly granular base, no deep purulence, no fluctuance, no ascending cellulitis, no signs of active infection. Minimal tenderness to palpation of wound. Sutures coapted at central aspect of plantar midfoot. Charcot plantar midfoot wound is granular, no deep purulence, no active signs of infection. WBC: 7.7 OR Cx: Enterococcus, staph coag negative, strep viridans ESR: 43 CRP: 4.8 Imp: 56 year old DM M with R foot abscess, s/p incision and drainage 1. Dakin's gauze + DSD to R foot. Patient refusing home nursing services, will do dressing changes at home. 2. Need ID f/u for input of abx upon discharge. ESR not significantly elevated , clinically abscess did not probe to the bone. 3. I advised patient on strict non-WB status. Limb salvage at this point. 4. [place] [facility] [place] 5. Clinically improved, no further surgical intervention Lisa Byrd DPM
[2016-08-14] MEDS ORDERED: PT OWN MED DRAWER 7, Y5N ONE ×2 (09:05→16:48)
[2016-08-14] MEDS: HEPARIN NA (PORCINE) 5,000 UNITS/ML 1ML VIAL SQ SCH ×2 (09:35→21:57)
[2016-08-14] MEDS: amLODIPine BESYLATE 10 MG TABLET (FP) PO SCH (09:35)
[2016-08-14] MEDS: BICALUTAMIDE 50 MG TABLET (FP) PO SCH (09:35)
[2016-08-14] MEDS: SODIUM HYPOCHLORITE 0.25%- 473 ML BULK BOTTLE TP SCH (09:36)
[2016-08-14] MEDS: VANCOMYCIN 1,000 MG in SODIUM CHLORIDE 250 ML IVPB SCH ×2 (10:24→22:00)
--- NOTE | 2016-08-14 11:44 | PN ---
Progress Note, Physician Chief Complaint: NO COMPLAINTS ANXIOUS TO MAKE OUTPT [facility] APPT - Current Medication List Current Medications: Active Medications Acetaminophen (Tylenol -) 650 mg PO Q6H PRN PRN Reason: FEVER OR PAIN Amlodipine Besylate (Norvasc -) 10 mg PO DAILY [facility] Last Admin: 08/14/16 09:35 Dose: 10 mg Atorvastatin Calcium (Lipitor -) 40 mg PO HS [facility] Last Admin: 08/13/16 21:58 Dose: 40 mg Bicalutamide (Casodex -) 50 mg PO DAILY [facility] Last Admin: 08/14/16 09:35 Dose: 50 mg Docusate Sodium (Colace -) 300 mg PO HS [facility] Last Admin: 08/13/16 21:58 Dose: Not Given Heparin Sodium (Porcine) (Heparin -) 5,000 unit SQ BID [facility] Last Admin: 08/14/16 09:35 Dose: 5,000 unit Piperacillin Sod/Tazobactam (Sod 3.375 gm/ Sodium Chloride) 50 mls @ 100 mls/ hr IVPB Q8H-IV [facility] PRN Reason: Protocol Last Admin: 08/14/16 09:31 Dose: 100 mls/hr Vancomycin HCl 1,000 mg/ (Sodium Chloride) 250 mls @ 166.667 mls/hr IVPB BID [facility] Last Admin: 08/14/16 10:24 Dose: 166.667 mls/hr Insulin Aspart (Novolog Vial Sliding Scale -) 1 vial SQ ACHS [facility] PRN Reason: Protocol Last Admin: 08/14/16 06:31 Dose: Not Given Insulin Detemir (Levemir Vial) 35 units SQ [facility] Last Admin: 08/13/16 21:58 Dose: 35 unit Oxycodone HCl (Roxicodone -) 5 mg PO Q4H PRN PRN Reason: PAIN LEVEL 1-5 Last Admin: 08/14/16 01:33 Dose: 5 mg Sodium Hypochlorite (Dakin's Solution 0.25% (Half-Strength) -) 1 applic TP DAILY [facility] Last Admin: 08/14/16 09:36 Dose: 1 applic - Objective Vital Signs: Vital Signs Temperature 97.5 F L 08/14/16 06:33 Pulse Rate 68 08/14/16 06:33 Respiratory Rate 18 08/14/16 06:33 Blood Pressure 134/76 08/14/16 06:33 O2 Sat by Pulse Oximetry (%) 99 08/13/16 21:00 Labs: CBC, BMP 08/14/16 07:30 08/13/16 06:00 INR, PTT INR 1.07 (0.82-1.09) 08/10/16 12:00 Problem List - Problems (1) Foot infection Code(s): L08.9 - LOCAL INFECTION OF THE SKIN AND SUBCUTANEOUS TISSUE, UNSP (2) IDDM (insulin dependent diabetes mellitus) Code(s): E11.9 - TYPE 2 DIABETES MELLITUS WITHOUT COMPLICATIONS Z79.4 - CARE HOME (CURRENT) USE OF INSULIN (3) Chronic kidney disease (CKD) Code(s): N18.9 - CHRONIC KIDNEY DISEASE, UNSPECIFIED Assessment/Plan (1) Foot infection Assessment/Plan: podi on case -> appreciate note iv abx vacno and zosyn abx duration per ID will get ID follow up Code(s): L08.9 - LOCAL INFECTION OF THE SKIN AND SUBCUTANEOUS TISSUE, UNSP (2) IDDM (insulin dependent diabetes mellitus) Assessment/Plan: bgm high increased dose of levemir bgm better today abx switch to NS Code(s): E11.9 - TYPE 2 DIABETES MELLITUS WITHOUT COMPLICATIONS 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
--- NOTE | 2016-08-14 14:02 | PN ---
Progress Note (short form) - Note Progress Note: asked to f/u for antibiotic management pod #4 s/p drainage of abscess wound examined- wound is clean no purulence, no erythema patient feels well podiatry note reviewed, does not probe to bone esr/crp noted- CBC, BMP 08/14/16 07:30 08/13/16 06:00 Microbiology 08/11/16 11:15 Blood - Peripheral Venous Blood Culture - Preliminary NO GROWTH OBTAINED AFTER 72 HOURS, INCUBATION TO CONTINUE FOR 2 DAYS. 08/11/16 10:55 Blood - Peripheral Venous Blood Culture - Preliminary NO GROWTH OBTAINED AFTER 72 HOURS, INCUBATION TO CONTINUE FOR 2 DAYS. 08/10/16 18:20 Abscess Gram Stain - Final 08/10/16 18:20 Abscess Body Fluid Culture - Final Enterococcus Faecalis Staphylococcus Coagulase Neg Streptococcus Viridans 08/10/16 18:20 Abscess Anaerobic Culture - Final NO ANAEROBES WERE ISOLATED a/p can switch to po augmentin in am with close outpt f/u with podiatry he refuses home services
[2016-08-14] MEDS: DOCUSATE SODIUM 100 MG CAPSULE (FP) PO SCH (21:57)
[2016-08-14] MEDS: INSULIN DETEMIR 100 UNITS/ML MDV SQ SCH (21:59)
[2016-08-14] MEDS: ATORVASTATIN CA 40 MG TABLET (FP) PO SCH (21:59)
[2016-08-15] MEDS: PIPERACILLIN/TAZOB 3.375 GM 3.375 GM in SODIUM CHLORIDE 50 ML IVPB SCH ×2 (01:14→09:49)
[2016-08-15] MEDS: INSULIN SLIDING SCALE (NOVOLOG) 1 VIAL SQ SCH ×2 (06:32→12:23)
[2016-08-15 07:33] LABS: MCH 28.3 pg (25.7-33.7); MCHC 34.6 g/dl (32.0-35.9); MEAN CELL VOLUME 81.8 fl (80-96); MEAN PLT VOLUME 8.3 fl (7.5-11.1); NEUTROPHILS 69.5 % (42.8-82.8); PLATELET COUNT 281 K/MM3 (134-434); RDW 16.4 % (11.9-15.9); WHITE BLOOD COUNT 8.3 K/mm3 (4.0-10.0)
[2016-08-15 08:24] LABS: ALBUMIN 3.3 g/dl (3.4-5.0); BILIRUBIN,TOTAL 0.7 mg/dL (0.2-1.0); CALCIUM 8.9 mg/dL (8.5-10.1); CREATININE 1.3 mg/dL (0.7-1.3); TOT PROT 6.9 g/dl (6.4-8.2)
[2016-08-15] MEDS ORDERED: PIPERACILLIN/TAZOB 3.375 GM 50 ML IVPB ONE (09:19)
[2016-08-15] MEDS ORDERED: PT OWN MED DRAWER 7, Y5N ONE (09:48)
--- NOTE | 2016-08-15 09:48 | DS ---
Physical Examination Vital Signs: Vital Signs Temperature 97.9 F 08/14/16 18:54 Pulse Rate 77 08/14/16 18:54 Respiratory Rate 16 08/14/16 20:52 Blood Pressure 125/69 08/14/16 18:54 O2 Sat by Pulse Oximetry (%) 96 08/14/16 20:52 Findings/Remarks: DRESSED ANXIOUS TO GO HOME Cardiovascular: Yes: WNL Respiratory: Yes: WNL Gastrointestinal: Yes: WNL Edema: No Wound/Incision: Yes: Dressing Dry and Intact (R FOOT) Labs: CBC, BMP 08/15/16 06:00 08/15/16 06:00 Discharge Summary Reason For Visit: INSULIN DEPENDENT DIABETES MELLITUS,FOOT INFECTION Current Active Problems Foot infection (Acute) IDDM (insulin dependent diabetes mellitus) (Chronic) Hospital Course: (1) Foot infection Assessment/Plan: podi & id on case -> appreciate notes iv abx vacno and zosyn -> po augmentin need outpt podi f/u strict non-WB status. Limb salvage at this point. 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 (3) HTN (hypertension) Assessment/Plan: [facility] Code(s): I10 - ESSENTIAL (PRIMARY) HYPERTENSION Qualifiers: Hypertension type: essential hypertension Qualified Code(s): I10 - Essential (primary) hypertension (4) Hyperlipidemia Assessment/Plan: HLD Code(s): E78.5 - HYPERLIPIDEMIA, UNSPECIFIED Qualifiers: Hyperlipidemia type: Other hyperlipidemia Qualified Code(s): E78.4 - Other hyperlipidemia DISCHARGE REFUSES HOME CARE REFUSES SNF WILL DO WOUND CARE AT HOME 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 Condition: Stable - Instructions Diet, Activity, Other Instructions: FU with Dr Farrar at [facility] on 08/17/16 NWB on right foot Referrals: Darren Carr [Primary Care Provider] - Disposition: HOME - Home Medications Comprehensive Discharge Medication List: Ambulatory Orders Amlodipine Besylate [[facility] -] 5 mg PO DAILY 08/10/16 Aspirin [ASA -] 81 mg PO DAILY 08/10/16 Atorvastatin Calcium 40 mg PO HS 08/10/16 Bicalutamide 50 mg PO DAILY 08/10/16 Fluticasone Prop 0.05% Nasal [Flonase -] 1 - 2 spray NS DAILY 08/10/16 Insulin Aspart [Novolog] 12 unit SQ DAILY 08/10/16 Insulin Degludec [Tresiba Flextouch U-100] 45 unit SQ DAILY 08/10/16 Multivit-Min/FA/Lycopen/Lutein [Centrum Silver Tablet] 1 each PO DAILY 08/10/16
[2016-08-15] MEDS: BICALUTAMIDE 50 MG TABLET (FP) PO SCH (09:52)
[2016-08-15] MEDS: amLODIPine BESYLATE 10 MG TABLET (FP) PO SCH (09:52)
[2016-08-15] MEDS: HEPARIN NA (PORCINE) 5,000 UNITS/ML 1ML VIAL SQ SCH (09:53)
[2016-08-15] MEDS: VANCOMYCIN 1,000 MG in SODIUM CHLORIDE 250 ML IVPB SCH (10:41)
[2016-08-15 11:16] VITALS: BP 119/72; PULSE 79; TEMP 98.1
[2016-08-15] MEDS: SODIUM HYPOCHLORITE 0.25%- 473 ML BULK BOTTLE TP SCH (12:23)
[2016-08-15] MEDS ORDERED: AMOX TR/POT CLAV 875MG/125MG TABLETS (FP) PO SCH (17:30)
== END 2016-08-15 15:04 | disposition home or self-care (01) | DRG 623 ==
LOC: JER 10:39 → JERBED 13:01 → J7W 18:00
PROVIDERS: ADMIT Family Medicine; ATTEND Family Medicine
PROC: 0JBQ0ZZ Excision of Right Foot Subcutaneous Tissue and Fascia, Open Approach (ICD-10-PCS; 2016-08-10)
PROC: 0J9Q0ZZ Drainage of Right Foot Subcutaneous Tissue and Fascia, Open Approach (ICD-10-PCS; principal; 2016-08-10 15:00)
DX: E11.621 Type 2 diabetes mellitus with foot ulcer (principal); L02.611 Cutaneous abscess of right foot; L97.519 Non-pressure chronic ulcer of other part of right foot with unspecified severity; I10 Essential (primary) hypertension; E78.5 Hyperlipidemia, unspecified; E11.42 Type 2 diabetes mellitus with diabetic polyneuropathy; I73.89 Other specified peripheral vascular diseases; Z87.891 Personal history of nicotine dependence; Z85.46 Personal history of malignant neoplasm of prostate; Z86.14 Personal history of Methicillin resistant Staphylococcus aureus infection; Z79.4 Long term (current) 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
CPT/HCPCS: 10060; 11042; 36415; 71010-TC; 73630-TC-RT; 80053; 80061; 81003; 83036; 83721; 83735; 85025; 85027; 85610; 85651; 86140; 86850; 86900; 86901; 87040; 87070; 87075; 87077; 87186; 87205; 88304-TC; 93005; 93010; 94760; 99284-25; J1644

== ENCOUNTER 2016-10-02 14:29 | Inpatient (IN) | payer OTHER ==
[2016-10-02 14:39] VITALS: BMI 27.6
--- NOTE | 2016-10-02 15:41 | PDOC ---
History of Present Illness - General History Source: Patient, Old Records Exam Limitations: No Limitations <Luz Simmons - Last Filed: 10/02/16 18:51> - General History Source: Patient Exam Limitations: No Limitations - History of Present Illness Initial Comments: 10/02/16 16:10 The patient is a 56 year old male with a significant past medical history of diabetes mellitus, osteomyelitis, prostate CA (with radioactive seeds), who presents to the ER with left foot pain for four days. Patient localizes the pain to the heel region. On interview, patient states he developed redness in the left ankle. Denies fever, chills, cough Denies paresthesia or numbness Denies abdominal pain, nausea, vomiting Denies chest pain Denies active bleeding or purulence PCP: Dr. Darren Carr <Siri Rosario - Last Filed: 10/02/16 18:57> - General Chief Complaint: Pain Stated Complaint: L FOOT PAIN Time Seen by Provider: 10/02/16 15:29 Past History - Past Medical History Anemia: No Asthma: No Cancer: Yes (Prostate (s/p seed implants July 02, 2016)) Cardiac Disorders: No CVA: No COPD: No CHF: No Dementia: No Diabetes: Yes (s/p multiple toe amputations, MRSA, Osteomyelitis) GI Disorders: No Disorders: No HTN: Yes Hypercholesterolemia: Yes Liver Disease: No Seizures: No Thyroid Disease: No - Surgical History Abdominal Surgery: No Appendectomy: No Cardiac Surgery: No Cholecystectomy: No Lung Surgery: No Neurologic Surgery: No Orthopedic Surgery: Yes - Psycho/Social/Smoking Cessation Hx Anxiety: No Suicidal Ideation: No Smoking Status: Yes (quit smoking 9 days ago) Smoking History: Never smoked Have you smoked in the past 12 months: No Number of Cigarettes Smoked Daily: 0 If you are a former smoker, when did you quit?: 2012 'Breaking Loose' booklet given: 04/04/13 Hx Alcohol Use: No Drug/Substance Use Hx: No Substance Use Type: None Hx Substance Use Treatment: No <Luz Simmons - Last Filed: 10/02/16 18:51> <Siri Rosario - Last Filed: 10/02/16 18:57> - Past Medical History Allergies/Adverse Reactions: Allergies Allergy/AdvReac Type Severity Reaction Status Date / Time No Known Drug Allergies Allergy Verified 10/02/16 14:39 Home Medications: Ambulatory Orders Atorvastatin Calcium 40 mg PO HS 08/10/16 Bicalutamide 50 mg PO DAILY 08/10/16 Fluticasone Prop 0.05% Nasal [Flonase -] 1 - 2 spray NS DAILY 08/10/16 Insulin Aspart [Novolog Flexpen] 12 unit SQ DAILY 08/10/16 Insulin Degludec [Tresiba Flextouch U-100] 45 unit SQ DAILY 08/10/16 Multivit-Min/FA/Lycopen/Lutein [Centrum Silver Tablet] 1 each PO DAILY 08/10/16 Acetaminophen [Tylenol .Regular Strength -] 650 mg PO Q6H PRN #0 tablet Amlodipine Besylate [Norvasc -] 10 mg PO DAILY #30 tablet 08/15/16 Docusate Sodium [Colace -] 300 mg PO HS #90 capsule 08/15/16 Sodium Hypochlorite [Dakin's Solution 0.25% (Half-Strength) -] 1 applic TP DAILY #1 bottle 08/15/16 Aspirin 81 mg PO DAILY 08/17/16 Mupirocin Ointment [Bactroban 2% Ointment -] 1 applic TP BID #30 gm 08/17/16 Review of Systems - Review of Systems Able to Perform ROS?: Yes Comments:: 10/02/16 16:11 GENERAL/CONSTITUTIONAL: No fever or chills. No weakness. HEAD, EYES, EARS, NOSE AND THROAT: No change in vision. No ear pain or discharge. No sore throat. CARDIOVASCULAR: No chest pain or shortness of breath. RESPIRATORY: No cough, wheezing, or hemoptysis. GASTROINTESTINAL: No nausea, vomiting, diarrhea or constipation. GENITOURINARY: No dysuria, frequency, or change in urination. MUSCULOSKELETAL: Left foot pain. No joint or muscle swelling or pain. No neck or back pain. SKIN: No rash NEUROLOGIC: No headache, vertigo, loss of consciousness, or change in strength/ sensation. ENDOCRINE: No increased thirst. No abnormal weight change. HEMATOLOGIC/LYMPHATIC: No anemia, easy bleeding, or history of blood clots. ALLERGIC/IMMUNOLOGIC: No hives or skin allergy. <Uts,Siri - Last Filed: 10/02/16 18:57> *Physical Exam - Vital Signs Last Vital Signs Temp Pulse Resp BP Pulse Ox 99.4 F 116 H 20 121/81 97 10/02/16 14:35 10/02/16 14:35 10/02/16 14:35 10/02/16 14:35 10/02/16 14:35 <Luz Simmons - Last Filed: 10/02/16 18:51> - Vital Signs Last Vital Signs Temp Pulse Resp BP Pulse Ox 99.4 F 116 H 20 121/81 97 10/02/16 14:35 10/02/16 14:35 10/02/16 14:35 10/02/16 14:35 10/02/16 14:35 - Physical Exam Comments: 10/02/16 16:12 GENERAL: Awake, alert, and fully oriented, in no acute distress HEAD: No signs of trauma EYES: PERRLA, EOMI, sclera anicteric, conjunctiva clear ENT: Auricles normal inspection, hearing grossly normal, nares patent, oropharynx clear without exudates. Moist mucosa NECK: Normal ROM, supple, no lymphadenopathy, JVD, or masses LUNGS: Breath sounds equal, clear to auscultation bilaterally. No wheezes, and no crackles HEART: Tachycardic. Regular rhythm, normal S1 and S2, no murmurs, rubs or gallops ABDOMEN: Umbilical hernia thats reducible.Soft, nontender, normoactive bowel sounds. No guarding, no rebound. No masses EXTREMITIES: Erythema in the left medial malleolus region. Streaking up the leg. Irregularly shaped 3x1 cm lesion on the plantar surface of the right foot. Tenderness to palpation on the right plantar foot. Several toe amputation on the right foot. All toe amputations on the left foot. Normal range of motion, no edema. No clubbing or cyanosis. NEUROLOGICAL: Cranial nerves II through XII grossly intact. Normal speech, normal gait SKIN: Warm, Dry, normal turgor, no rashes or lesions noted. <Uts,Siri - Last Filed: 10/02/16 18:57> ED Treatment Course - LABORATORY CBC & Chemistry Diagram: 10/02/16 14:15 10/02/16 18:00 <Luz Simmons - Last Filed: 10/02/16 18:51> - LABORATORY CBC & Chemistry Diagram: 10/02/16 14:15 10/02/16 18:00 <Siri Rosario - Last Filed: 10/02/16 18:57> Medical Decision Making - Medical Decision Making 10/02/16 16:05 48-year-old male with history of hypertension, diabetes, peripheral vascular disease status post left TMA and chronic osteomyelitis of the right foot presents to the emergency Department with complaints of left foot pain 3 days and erythema today. Differential diagnosis includes but is not limited to: Cellulitis, osteomyelitis, sepsis, dehydration, electrolyte abnormality, uncontrolled diabetes, toxic/metabolic derangement. Plan: 1. Labs 2. Blanca culture 3. IV fluids for hydration 4. Plain films of the foot and ankle 5. IV antibiotics 6. Pain management 7. Observe and re-evaluate 10/02/16 18:52 Addendum: Labs were reviewed and are noted in the EMR. Temp is 101F rectally. The patient received vancomysin and zosyn. Will admit to med/surg. The patient was endorsed to Dr. Alva. <Luz Simmons - Last Filed: 10/02/16 18:51> *DC/Admit/Observation/Transfer - Discharge Dispostion Admit: Yes - Attestations Physician Attestion: 10/02/16 16:08 I, Dr. Luz Simmons, attest that the scribes documentation that appears above has been prepared under my direction and personally reviewed by me in its entirety. I confirmed that the note above accurately reflects all work, treatment, procedures, and medical decision-making performed by me. <Luz Simmons - Last Filed: 10/02/16 18:51> - Attestations Scribe Attestion: 10/02/16 16:14 Documentation prepared by Siri Rosario, acting as medical assistant dermatology for Luz Simmons MD. <Siri Rosario - Last Filed: 10/02/16 18:57> Diagnosis at time of Disposition: Cellulitis of left foot, Uncontrolled diabetes mellitus - Referrals Referrals: Darren Carr [Primary Care Provider] -
[2016-10-02] MEDS ORDERED: VANCOMYCIN 1,000 MG in DEXTROSE 5%-WATER - 250 ML IVPB ONE (15:43)
[2016-10-02] MEDS ORDERED: PIPERACILLIN/TAZOB 3.375 GM/50 ML PRE-DOCKED IV ONE (15:43)
[2016-10-02] MEDS ORDERED: SODIUM CHLORIDE 1,000 ML IV STA (15:43)
[2016-10-02] MEDS ORDERED: VANCOMYCIN 1 GRAM (PRE-DOCKED) 250 ML IVPB ONE (16:21)
[2016-10-02 16:25] LABS: MCH 27.4 pg (25.7-33.7); MCHC 33.6 g/dl (32.0-35.9); MEAN CELL VOLUME 81.7 fl (80-96); MEAN PLT VOLUME 8.7 fl (7.5-11.1); PLATELET COUNT 222 K/MM3 (134-434); RDW 14.6 % (11.9-15.9); WHITE BLOOD COUNT 20.2 K/mm3 (4.0-10.0)
[2016-10-02] MEDS ORDERED: ACETAMINOPHEN 500 MG TABLET (FP) PO ONE (16:42)
[2016-10-02 17:05] LABS: URINE APPEARANCE CLEAR; URINE BILIRUBIN NEGATIVE (NEGATIVE); URINE COLOR LTYELLOW; URINE GLUCOSE (UA) 3+ (NEGATIVE); URINE KETONE TRACE (NEGATIVE); URINE LEUK ESTERASE NEGATIVE (NEGATIVE); URINE NITRITE NEGATIVE (NEGATIVE); URINE UROBILINOGEN NEGATIVE E.U./dl (0.2-1.0)
[2016-10-02 17:06] LABS: URINE BLOOD 2+ (NEGATIVE); URINE PROTEIN 2+ (NEGATIVE)
[2016-10-02 17:08] LABS: URINE HYALINE CAST 1 /lpf; URINE RBC 13 /hpf (0-3); URINE WBC 1 /hpf (3-5)
[2016-10-02 18:36] LABS: ALBUMIN 2.9 g/dl (3.4-5.0); ANION GAP 14 (8-16); BILIRUBIN,TOTAL 0.7 mg/dL (0.2-1.0); CALCIUM 8.1 mg/dL (8.5-10.1); CO2 21 mmol/L (21-32); COCKROFT - GAULT 60.37; CREATININE 1.6 mg/dL (0.7-1.3); SGPT/ALT 24 U/L (12-78); TOT PROT 7.4 g/dl (6.4-8.2)
[2016-10-02 18:39] LABS: ALK PHOS 142 U/L (45-117); TROPONIN I < 0.02 ng/ml (0.00-0.05)
[2016-10-02 18:46] LABS: MAGNESIUM 2.1 mg/dL (1.8-2.4); SGOT/AST 13 U/L (15-37)
[2016-10-02 18:47] LABS: GLUCOSE,RANDOM 470 mg/dL (74-106)
[2016-10-02] MEDS ORDERED: ACETAMINOPHEN 325 MG TABLET (FP) ONE (20:05)
[2016-10-02] MEDS ORDERED: PIPERACILLIN/TAZOB 3.375 GM 50 ML IVPB ONE (20:07)
[2016-10-02] MEDS ORDERED: ACETAMINOPHEN INJECTION 100 ML IVPB ONE (20:12)
[2016-10-02] MEDS ORDERED: ATORVASTATIN CA 40 MG TABLET (FP) ONE (22:30)
[2016-10-02] MEDS ORDERED: HEPARIN NA (PORCINE) 5,000 UNITS/ML 1ML VIAL ONE (22:30)
[2016-10-02] MEDS ORDERED: DOCUSATE SODIUM 100 MG CAPSULE (FP) PO ONE (22:30)
[2016-10-02] MEDS ORDERED: INSULIN REGULAR HUMAN 100 UNITS/ML *VIAL ONE (22:31)
[2016-10-02] MEDS: DOCUSATE SODIUM 100 MG CAPSULE (FP) PO SCH (22:51)
[2016-10-02] MEDS: MUPIROCIN 2% TOPICAL OINTMENT 22 GM TUBE TP SCH (22:51)
[2016-10-02] MEDS: HEPARIN NA (PORCINE) 5,000 UNITS/ML 1ML VIAL SQ SCH (22:52)
[2016-10-02] MEDS: INSULIN SLIDING SCALE (NOVOLOG) 1 VIAL SQ SCH (22:52)
[2016-10-02] MEDS: ATORVASTATIN CA 40 MG TABLET (FP) PO SCH (22:52)
[2016-10-03] MEDS ORDERED: ACETAMINOPHEN 325 MG TABLET (FP) ONE (03:30)
[2016-10-03] MEDS: ACETAMINOPHEN 325 MG TABLET (FP) PO PRN (03:35)
[2016-10-03 06:32] LABS: BASOPHIL 0.3 % (0-2.0); EOSINOPHIL 1.2 % (0-4.5); MCH 27.7 pg (25.7-33.7); MCHC 34.2 g/dl (32.0-35.9); MEAN PLT VOLUME 8.9 fl (7.5-11.1); NEUTROPHILS 86.2 % (42.8-82.8); PLATELET COUNT 211 K/MM3 (134-434); RDW 14.6 % (11.9-15.9); WHITE BLOOD COUNT 16.5 K/mm3 (4.0-10.0)
[2016-10-03 06:55] LABS: ALBUMIN 2.8 g/dl (3.4-5.0); BILIRUBIN,TOTAL 0.5 mg/dL (0.2-1.0); CALCIUM 8.7 mg/dL (8.5-10.1); COCKROFT - GAULT 74.3; CREATININE 1.3 mg/dL (0.7-1.3); TOT PROT 6.7 g/dl (6.4-8.2)
[2016-10-03] MEDS ORDERED: INSULIN REGULAR HUMAN 100 UNITS/ML *VIAL ONE ×4 (07:56→19:03)
[2016-10-03] MEDS: INSULIN SLIDING SCALE (NOVOLOG) 1 VIAL SQ SCH ×4 (07:59→22:51)
--- NOTE | 2016-10-03 09:28 | HP ---
Admitting History and Physical - Primary Care Physician PCP: Darren Carr - Admission Chief Complaint: FOOT INFECTION. 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: Peripheral Neuropathy, Other (IDDM) Cardiovascular: Yes: HTN, Hyperlipdemia, Other (peripheral vascular disease) Musculoskeletal: Yes: Osteoarthritis Endocrine: Yes: Diabetes Mellitus (Insulin dependent) - Smoking History Smoking history: Never smoked Have you smoked in the past 12 months: No Aproximately how many cigarettes per day: 0 If you are a former smoker, when did you quit?: 2013 - Alcohol/Substance Use Hx Alcohol Use: No - Social History History of Recent Travel: No Home Medications - Allergies Allergies/Adverse Reactions: Allergies Allergy/AdvReac Type Severity Reaction Status Date / Time No Known Drug Allergies Allergy Verified 10/02/16 14:39 - Home Medications Home Medications: Ambulatory Orders Atorvastatin Calcium 40 mg PO HS 08/10/16 Bicalutamide 50 mg PO DAILY 08/10/16 Fluticasone Prop 0.05% Nasal [Flonase -] 1 - 2 spray NS DAILY 08/10/16 Insulin Aspart [Novolog Flexpen] 12 unit SQ DAILY 08/10/16 Insulin Degludec [Tresiba Flextouch U-100] 45 unit SQ DAILY 08/10/16 Multivit-Min/FA/Lycopen/Lutein [Centrum Silver Tablet] 1 each PO DAILY 08/10/16 Acetaminophen [Tylenol .Regular Strength -] 650 mg PO Q6H PRN #0 tablet Amlodipine Besylate [Norvasc -] 10 mg PO DAILY #30 tablet 08/15/16 Docusate Sodium [Colace -] 300 mg PO HS #90 capsule 08/15/16 Sodium Hypochlorite [Dakin's Solution 0.25% (Half-Strength) -] 1 applic TP DAILY #1 bottle 08/15/16 Aspirin 81 mg PO DAILY 08/17/16 Mupirocin Ointment [Bactroban 2% Ointment -] 1 applic TP BID #30 gm 08/17/16 Family Disease History - Family Disease History Family Disease History: Diabetes: Father Review of Systems - Review of Systems Constitutional: denies: Chills, Fever Cardiovascular: denies: Chest Pain Respiratory: denies: SOB Gastrointestinal: denies: Abdominal Pain Musculoskeletal: reports: Joint Pain Physical Examination Vital Signs: Vital Signs Temperature 97.8 F 10/03/16 06:44 Pulse Rate 95 H 10/03/16 06:44 Respiratory Rate 19 10/03/16 06:44 Blood Pressure 122/74 10/03/16 06:44 O2 Sat by Pulse Oximetry (%) 99 10/03/16 06:44 Constitutional: Yes: Calm Neck: Yes: WNL Cardiovascular: Yes: WNL Respiratory: Yes: WNL Gastrointestinal: Yes: WNL Edema: No Wound/Incision: Yes: Dressing Dry and Intact Labs: CBC, BMP 10/03/16 06:05 10/03/16 06:05 Imaging - Results Chest X-ray: Report Reviewed X-ray: Report Reviewed Problem List - Problems (1) Cellulitis of left foot Code(s): L03.116 - CELLULITIS OF LEFT LOWER LIMB (2) Uncontrolled diabetes mellitus Code(s): E11.65 - TYPE 2 DIABETES MELLITUS WITH HYPERGLYCEMIA (3) Chronic kidney disease (CKD) Code(s): N18.9 - CHRONIC KIDNEY DISEASE, UNSPECIFIED (4) HTN (hypertension) Code(s): I10 - ESSENTIAL (PRIMARY) HYPERTENSION Qualifiers: Assessment/Plan The patient is a 56 year old male with a significant past medical history of diabetes mellitus, osteomyelitis, prostate CA (with radioactive seeds), who presents to the ER with left foot pain for four days. Patient localizes the pain to the heel region. On interview, patient states he developed redness in the left ankle. PCP: Dr. 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
[2016-10-03] MEDS: amLODIPine BESYLATE 10 MG TABLET (FP) PO SCH (10:00)
[2016-10-03] MEDS: HEPARIN NA (PORCINE) 5,000 UNITS/ML 1ML VIAL SQ SCH ×2 (10:00→22:49)
[2016-10-03] MEDS ORDERED: INSULIN DEGLUDEC SQ SCH (10:00)
[2016-10-03] MEDS: BICALUTAMIDE 50 MG TABLET (FP) PO SCH (11:00)
[2016-10-03] MEDS: MUPIROCIN 2% TOPICAL OINTMENT 22 GM TUBE TP SCH ×2 (11:00→22:52)
[2016-10-03] MEDS: MULTIVITAMINS THER W-MINERALS COMBO TABLET (FP) PO SCH (11:00)
--- NOTE | 2016-10-03 11:41 | CONSULT ---
Consult - text type - Consultation Consultation Note: Podiatry Consultation: 56 year old IDDM M, well known to me from [facility], presents with L foot redness/ swelling/pain for about 1 week. Patient missed his last WC appointment, was supposed to have treatment for his Prostate CA which he had to cancel. He does report vomitting at home, however he thinks it is from reflux. Denies fevers at home. Currently febrile to 101 F. He reports blood sugars have been quite elevated over the past week. PMHx: IDDM, Charcot R foot, Prostate CA s/p seeding, HLP, multiple amputations including L TMA Meds: noted in chart PSHx: multiple foot amputations ALL: NKMA SMITHA: L foot: s/p TMA with hyperkeratotic lesions sub-1st and 5th mets. No open wounds, no purulence, no fluctuance. L inferior heel ulcer x 2, granular base, no purulent drainage, no fluctuance, no ST crepitus. There is erythema to the medial arch extending to the ankle. There is no palpable collection. R foot: plantar midfoot Charcot ulcer with granular base and hyperkeratotic borders, no probing to bone, no purulence, no fluctuance, no streaking cellulitis, no signs of active infection. WBC: 16.5 ESR: 116 Blood Cx: pending L foot XR: no bony destruction, no soft tissue emphysema Imp: 56 year old IDDM M with R Charcot midfoot ulcer, L heel ulcer and cellulitis 1. IV abx, ID consultation 2. DSD b/l feet 3. Glycemic control 4. Ideally needs MRI L foot to evaluate for deep space abscess. I cannot appreciate any acute abscess on plain films. I do not think patient can get MRI given his prostate seeds. ?CT scan 5. Will monitor for clinical improvement once IV abx on board. 6. Will follow. Thanks for the courtesy of this consult. Lisa Byrd DPM
[2016-10-03] MEDS: ASPIRIN 81 MG CHEWABLE TABLETS PO SCH (13:38)
[2016-10-03] MEDS: INSULIN DETEMIR 100 UNITS/ML MDV SQ SCH ×2 (13:55→22:50)
--- NOTE | 2016-10-03 17:17 | EKG ---
Test Reason : Blood Pressure : / mmHG Vent. Rate : 104 BPM Atrial Rate : 104 BPM P-R Int : 150 ms QRS Dur : 094 ms QT Int : 346 ms P-R-T Axes : 015 -40 029 degrees QTc Int : 454 ms SINUS TACHYCARDIA LEFT AXIS DEVIATION ABNORMAL ECG WHEN COMPARED WITH ECG OF 10-AUG-2016 11:16, PREMATURE VENTRICULAR COMPLEXES ARE NO LONGER PRESENT Confirmed by FLORA FISHER MD ([id number]) on 10/03/2016 5:16:47 PM Referred By: Confirmed By:FLORA FISHER MD
[2016-10-03] MEDS ORDERED: INSULIN (NOVOLOG) ASPART 100 UNITS/ML 10ML VIAL SQ ONE (19:02)
[2016-10-03] MEDS ORDERED: INSULIN DETEMIR 100 UNITS/ML MDV SQ SCH (22:43)
[2016-10-03] MEDS: ATORVASTATIN CA 40 MG TABLET (FP) PO SCH (22:48)
[2016-10-03] MEDS: DOCUSATE SODIUM 100 MG CAPSULE (FP) PO SCH (22:48)
[2016-10-04] MEDS: ACETAMINOPHEN 325 MG TABLET (FP) PO PRN ×2 (02:39→10:08)
--- NOTE | 2016-10-04 06:27 | PN ---
Progress Note, Physician Chief Complaint: NO COMPLAINTS - Current Medication List Current Medications: Active Medications Acetaminophen (Tylenol -) 650 mg PO Q6H PRN PRN Reason: FEVER OR PAIN Last Admin: 10/04/16 02:39 Dose: 650 mg Amlodipine Besylate (Norvasc -) 10 mg PO DAILY [facility] Last Admin: 10/03/16 10:00 Dose: 10 mg Aspirin (Asa -) 81 mg PO DAILY [facility] Last Admin: 10/03/16 13:38 Dose: 81 mg Atorvastatin Calcium (Lipitor -) 40 mg PO HS [facility] Last Admin: 10/03/16 22:48 Dose: 40 mg Bicalutamide (Casodex -) 50 mg PO DAILY [facility] Last Admin: 10/03/16 11:00 Dose: 50 mg Docusate Sodium (Colace -) 300 mg PO HS [facility] Last Admin: 10/03/16 22:48 Dose: 300 mg Fluticasone Propionate (Flonase -) 2 spray NS DAILY [facility] Heparin Sodium (Porcine) (Heparin -) 5,000 unit SQ BID [facility] Last Admin: 10/03/16 22:49 Dose: 5,000 unit Insulin Aspart (Novolog Vial Sliding Scale -) 1 vial SQ [facility] PRN Reason: Protocol Insulin Detemir (Levemir Vial) 30 units SQ BID@0700,2200 [facility] Multivitamins/Minerals (Theragran-M) 1 each PO DAILY [facility] Last Admin: 10/03/16 11:00 Dose: 1 each Mupirocin (Bactroban 2% Ointment -) 1 applic TP BID [facility] Last Admin: 10/03/16 22:52 Dose: 1 applic Sodium Hypochlorite (Dakin's Solution 0.25% (Half-Strength) -) 1 applic TP DAILY [facility] - Objective Vital Signs: Vital Signs Temperature 101 F H 10/03/16 22:00 Pulse Rate 100 H 10/03/16 22:00 Respiratory Rate 20 10/03/16 22:00 Blood Pressure 144/70 10/03/16 22:00 O2 Sat by Pulse Oximetry (%) 100 10/03/16 22:00 Neck: Yes: WNL Cardiovascular: Yes: WNL Respiratory: Yes: WNL Gastrointestinal: Yes: WNL Edema: No Wound/Incision: Yes: Dressing Dry and Intact Labs: CBC, BMP 10/03/16 06:05 10/03/16 06:05 Problem List - Problems (1) Cellulitis of left foot Code(s): L03.116 - CELLULITIS OF LEFT LOWER LIMB (2) Uncontrolled diabetes mellitus Code(s): E11.65 - TYPE 2 DIABETES MELLITUS WITH HYPERGLYCEMIA (3) Chronic kidney disease (CKD) Code(s): N18.9 - CHRONIC KIDNEY DISEASE, UNSPECIFIED (4) HTN (hypertension) Code(s): I10 - ESSENTIAL (PRIMARY) HYPERTENSION Qualifiers: Assessment/Plan The patient is a 56 year old male with a significant past medical history of diabetes mellitus, osteomyelitis, prostate CA (with radioactive seeds), who presents to the ER with left foot pain for four days. Patient localizes the pain to the heel region. On interview, patient states he developed redness in the left ankle. PCP: Dr. 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
[2016-10-04] MEDS: INSULIN SLIDING SCALE (NOVOLOG) 1 VIAL SQ SCH ×4 (07:11→22:10)
[2016-10-04 08:11] LABS: MCH 27.4 pg (25.7-33.7); MCHC 33.5 g/dl (32.0-35.9); MEAN CELL VOLUME 81.9 fl (80-96); MEAN PLT VOLUME 8.9 fl (7.5-11.1); PLATELET COUNT 219 K/MM3 (134-434); RDW 14.6 % (11.9-15.9); WHITE BLOOD COUNT 20.4 K/mm3 (4.0-10.0)
[2016-10-04 08:49] LABS: ALBUMIN 2.8 g/dl (3.4-5.0); BILIRUBIN,TOTAL 0.6 mg/dL (0.2-1.0); CALCIUM 8.9 mg/dL (8.5-10.1); COCKROFT - GAULT 74.3; CREATININE 1.3 mg/dL (0.7-1.3)
[2016-10-04] MEDS: SODIUM HYPOCHLORITE 0.25%- 473 ML BULK BOTTLE TP SCH ×2 (09:54→16:02)
[2016-10-04] MEDS: FLUTICASONE PROP 0.05% 16 GM NASAL SPRAY NS SCH ×2 (09:54→12:14)
[2016-10-04] MEDS ORDERED: PT OWN MED DRAWER 7, Y5N ONE ×2 (10:00→18:05)
[2016-10-04] MEDS: BICALUTAMIDE 50 MG TABLET (FP) PO SCH (10:00)
[2016-10-04] MEDS: ASPIRIN 81 MG CHEWABLE TABLETS PO SCH (10:05)
[2016-10-04] MEDS: HEPARIN NA (PORCINE) 5,000 UNITS/ML 1ML VIAL SQ SCH ×2 (10:06→21:59)
[2016-10-04] MEDS: MULTIVITAMINS THER W-MINERALS COMBO TABLET (FP) PO SCH (10:06)
[2016-10-04] MEDS: amLODIPine BESYLATE 10 MG TABLET (FP) PO SCH (10:06)
--- NOTE | 2016-10-04 15:14 | PN ---
Progress Note (short form) - Note Progress Note: ID Consult dictated Cellulitis L TMA Fever/ leukocytosis, possible sepsis secondary to skin source Azotemia Diabetes mellitus Await c/s Surgical follow up Empiric vancomycin/zosyn
[2016-10-04] MEDS ORDERED: VANCOMYCIN 1 GRAM (PRE-DOCKED) 250 ML IVPB SCH (16:00)
[2016-10-04] MEDS ORDERED: PIPERACILLIN/TAZOB 3.375 GM 50 ML IVPB SCH (16:00)
[2016-10-04] MEDS: MUPIROCIN 2% TOPICAL OINTMENT 22 GM TUBE TP SCH ×2 (16:02→21:58)
[2016-10-04] MEDS ORDERED: INSULIN (NOVOLOG) ASPART 100 UNITS/ML 10ML VIAL ONE (18:03)
--- NOTE | 2016-10-04 18:23 | CONS ---
DATE OF CONSULTATION: DATE OF DICTATION: 10/04/2016 INFECTIOUS DISEASE CONSULTATION HISTORY OF PRESENT ILLNESS: A 56-year-old diabetic male with history of diabetic foot ulcer status post left transmetatarsal amputation, history of amputation of toes on the right foot and chronic osteomyelitis of the right foot, evaluated for cellulitis of the left foot. The patient reports 3-4 day history of worsening pain in the left foot. He reports approximately 1 day prior to admission he noted erythema involving the medial aspect of the foot in the area of the medial malleolus. He was evaluated in the emergency room. He was seen in consultation by podiatry. The patient underwent debridement of a left heel ulcer. He was empirically treated with vancomycin and Zosyn. He denies any purulent wound drainage, no associated fever or chills. He has a long history of infected diabetic foot wounds for which he is followed in the wound care center. He has had a history of MRSA in the past. No associated fever or chills. PAST MEDICAL HISTORY: Positive for diabetes mellitus, history of diabetic foot infection, osteomyelitis, prostate cancer, hypertension, hyperlipidemia. PAST SURGICAL HISTORY: Status post left transmetatarsal amputation, status post amputation of toes on the right foot. ALLERGIES: No known allergies. LABORATORY DATA: White count 20.4, hematocrit 34.2, platelets 219, creatinine 1.3. Blood culture preliminarily negative. ESR 116. Urinalysis 1 white cell. PHYSICAL EXAMINATION: General: He is chronically ill appearing. He is in no acute distress. Vital signs: Temperature 98.2, T-max 101.9, blood pressure 109/68, pulse 103 regular, respirations 60 per minute. HEENT: Sclerae anicteric. Cardiovascular: Heart sounds S1, S2. Respiratory: Lungs clear. Abdomen: Soft. No tenderness elicited. No mass, rebound, or rigidity. Extremities: Examination of the right foot, patient is status post amputation of right 3rd through 5th toes. Site is well healed. There is a callus present on the plantar aspect of the right foot at the level of the mid metatarsals. There is no purulent drainage or surrounding erythema. Examination of the left foot, he is status post transmetatarsal amputation. He has a superficial ulceration present on the plantar aspect of the stump, and with erythema and warmth involving the area of the left medial malleolus. IMPRESSION: 1. Cellulitis of the left foot. 2. Fever, leukocytosis, possible sepsis secondary to skin sores. 3. History of diabetic foot ulcers. 4. Diabetes mellitus. 5. Azotemia. Await culture results, empiric antibiotic coverage with vancomycin and Zosyn, surgical followup, elevation, analgesics, contact precautions, will follow. Thank you for the kind referral. JOANNA VARGHESE M.D. [id number] MTDD
--- NOTE | 2016-10-04 21:42 | CONSULT ---
Consult Consult Specialty:: endocrine Referred by:: Reason for Consultation:: iddm uncontrolled - History of Present Illness Chief Complaint: iddm unocontrolled History of Present Illness: 56 year old male with a significant past medical history of diabetes mellitus, osteomyelitis, prostate CA (with radioactive seeds), who presents to the ER with left foot pain for four days. Patient localizes the pain to the heel region. 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: Peripheral Neuropathy, Other (IDDM) Cardio/Vascular: Yes: HTN, Hyperlipdemia, Other (peripheral vascular disease) Musculoskeletal: Yes: Osteoarthritis Endocrine: Yes: Diabetes Mellitus (Insulin dependent) - Alcohol/Substance Use Hx Alcohol Use: No - Smoking History Smoking history: Never smoked Have you smoked in the past 12 months: No Aproximately how many cigarettes per day: 0 If you are a former smoker, when did you quit?: 2012 - Social History Usual Living Arrangement: Other (with family) History of Recent Travel: No Home Medications - Allergies Allergies/Adverse Reactions: Allergies Allergy/AdvReac Type Severity Reaction Status Date / Time No Known Drug Allergies Allergy Verified 10/02/16 14:39 - Home Medications Home Medications: Ambulatory Orders Atorvastatin Calcium 40 mg PO HS 08/10/16 Bicalutamide 50 mg PO DAILY 08/10/16 Fluticasone Prop 0.05% Nasal [Flonase -] 1 - 2 spray NS DAILY 08/10/16 Insulin Aspart [Novolog Flexpen] 12 unit SQ DAILY 08/10/16 Insulin Degludec [Tresiba Flextouch U-100] 45 unit SQ DAILY 08/10/16 Multivit-Min/FA/Lycopen/Lutein [Centrum Silver Tablet] 1 each PO DAILY 08/10/16 Acetaminophen [Tylenol .Regular Strength -] 650 mg PO Q6H PRN #0 tablet Amlodipine Besylate [Norvasc -] 10 mg PO DAILY #30 tablet 08/15/16 Docusate Sodium [Colace -] 300 mg PO HS #90 capsule 08/15/16 Sodium Hypochlorite [Dakin's Solution 0.25% (Half-Strength) -] 1 applic TP DAILY #1 bottle 08/15/16 Aspirin 81 mg PO DAILY 08/17/16 Mupirocin Ointment [Bactroban 2% Ointment -] 1 applic TP BID #30 gm 08/17/16 Family Disease History - Family Disease History Family Disease History: Diabetes: Father Review of Systems - Review of Systems Constitutional: reports: Lethargy Eyes: reports: No Symptoms HENT: reports: No Symptoms Neck: reports: No Symptoms Cardiovascular: reports: No Symptoms Respiratory: reports: No Symptoms Gastrointestinal: reports: No Symptoms Genitourinary: reports: No Symptoms Breasts: reports: No Symptoms Reported Musculoskeletal: reports: Decreased ROM, Joint Pain, Muscle Pain, Muscle Cramps , Muscle Weakness Integumentary: reports: Wound Neurological: reports: Numbness, Parasthesia, Tremors, Weakness Endocrine: reports: Increased Thirst Physical Exam Vital Signs: Vital Signs Temperature 98.3 F 10/04/16 17:53 Pulse Rate 96 H 10/04/16 17:53 Respiratory Rate 18 10/04/16 17:53 Blood Pressure 134/77 10/04/16 17:53 O2 Sat by Pulse Oximetry (%) 98 10/04/16 09:00 Constitutional: Yes: Calm Eyes: Yes: EOM Intact HENT: Yes: Normocephalic Neck: Yes: WNL Cardiovascular: Yes: Regular Rate and Rhythm Respiratory: Yes: CTA Bilaterally Gastrointestinal: Yes: Normal Bowel Sounds Musculoskeletal: Yes: Joint Stiffness, Joint Swelling, Muscle Pain, Muscle Weakness Labs: CBC, BMP 10/04/16 07:00 10/04/16 07:00 Assessment/Plan Current Active Problems Cellulitis of left foot (Acute) Uncontrolled diabetes mellitus (Acute) iddm uncontrolled diabetic neuropathy Abnormal Lab Results 10/04/16 10/04/16 07:00 07:00 WBC 20.4 H Hgb 11.5 L Hct 34.2 L Neutrophils % 88.0 H Lymphocytes % 4.0 L D BUN 22 H D Random Glucose 239 H D Alkaline Phosphatase 145 H Albumin 2.8 L Laboratory Results - last 24 hr 10/02/16 10/03/16 10/03/16 22:12 06:59 14:47 WBC RBC Hgb Hct MCV MCHC RDW Plt Count MPV Neutrophils % Lymphocytes % Monocytes % Sodium Potassium Chloride Carbon Dioxide Anion Gap BUN Creatinine Creat Clearance w eGFR POC Glucometer > 400 > 400 > 400 Random Glucose Calcium Total Bilirubin AST ALT Alkaline Phosphatase Total Protein Albumin 10/03/16 10/04/16 10/04/16 22:47 05:45 07:00 WBC 20.4 H RBC 4.18 Hgb 11.5 L Hct 34.2 L MCV 81.9 MCHC 33.5 RDW 14.6 Plt Count 219 MPV 8.9 Neutrophils % 88.0 H Lymphocytes % 4.0 L D Monocytes % 8.0 Sodium Potassium Chloride Carbon Dioxide Anion Gap BUN Creatinine Creat Clearance w eGFR POC Glucometer 252 236 Random Glucose Calcium Total Bilirubin AST ALT Alkaline Phosphatase Total Protein Albumin 10/04/16 10/04/16 10/04/16 07:00 12:12 17:22 WBC RBC Hgb Hct MCV MCHC RDW Plt Count MPV Neutrophils % Lymphocytes % Monocytes % Sodium 138 Potassium 3.7 Chloride 100 Carbon Dioxide 25 Anion Gap 13 BUN 22 H D Creatinine 1.3 Creat Clearance w eGFR 56.70 POC Glucometer 372 386 Random Glucose 239 H D Calcium 8.9 Total Bilirubin 0.6 AST 21 D ALT 28 D Alkaline Phosphatase 145 H Total Protein 7.0 Albumin 2.8 L plan: levemir 42 units bid bgm qid novolog scale [id number] Current Medications Generic Name Dose Route Start Last Admin Trade Name Freq PRN Reason Stop Dose Admin Acetaminophen 650 mg 10/02/16 21:05 10/04/16 10:08 Tylenol - PO 650 mg Q6H PRN Administration FEVER OR PAIN Amlodipine Besylate 10 mg 10/03/16 10:00 10/04/16 10:06 Norvasc - PO 10 mg DAILY [facility] Administration Aspirin 81 mg 10/03/16 10:00 10/04/16 10:05 Asa - PO 81 mg DAILY [facility] Administration Atorvastatin Calcium 40 mg 10/02/16 22:00 10/03/16 22:48 Lipitor - PO 40 mg HS [facility] Administration Bicalutamide 50 mg 10/03/16 10:00 10/04/16 10:00 Casodex - PO 50 mg DAILY [facility] Administration Docusate Sodium 300 mg 10/02/16 22:00 10/03/16 22:48 Colace - PO 300 mg HS [facility] Administration Fluticasone Propionate 2 spray 10/03/16 10:00 10/04/16 12:14 Flonase - NS Not Given DAILY [facility] Heparin Sodium (Porcine) 5,000 unit 10/02/16 22:00 10/04/16 10:06 Heparin - SQ 5,000 unit BID [facility] Administration Piperacillin Sod/Tazobactam 50 mls @ 100 mls/hr 10/05/16 02:00 Sod 3.375 gm/ Sodium Chloride IVPB Q8H-IV [facility] Protocol Vancomycin HCl 1,000 mg/ 250 mls @ 166.667 mls/hr 10/05/16 04:00 Sodium Chloride IVPB BID@0400,1600 [facility] Insulin Aspart 1 vial 10/03/16 22:48 10/04/16 17:46 Novolog Vial Sliding Scale - SQ 10 units ACHS [facility] Administration Protocol Insulin Detemir 38 units 10/04/16 20:52 Levemir Vial SQ BID@0700,2200 [facility] Multivitamins/Minerals 1 each 10/03/16 10:00 10/04/16 10:06 Theragran-M PO 1 each DAILY [facility] Administration Mupirocin 1 applic 10/02/16 22:00 10/04/16 16:02 Bactroban 2% Ointment - TP 1 applic BID [facility] Administration Sodium Hypochlorite 1 applic 10/03/16 10:00 10/04/16 16:02 Dakin's Solution 0.25% (Half-Strength) - TP 1 applic DAILY [facility] Administration
[2016-10-04] MEDS: DOCUSATE SODIUM 100 MG CAPSULE (FP) PO SCH (21:58)
--- NOTE | 2016-10-04 22:02 | CONSULT ---
Consult Consult Specialty:: Nephrology Reason for Consultation:: CKD - History of Present Illness Chief Complaint: left foot pain History of Present Illness: Pt is a 56 year old male with pmhx of CKD, DM, prostate cancer and osteomyelitis who presents to the ER with left foot pain. He was found to have elevated creatinine and I was called to evaluate him. He is known to me from prior hospitalizations. He has poor output follow up. He does have CKD however was never fully worked up. He denies dysuria or hematuria. He denies fevers or chills. He however was found to be febrile in the hospital. He denies chest pain. 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: Peripheral Neuropathy, Other (IDDM) Cardio/Vascular: Yes: HTN, Hyperlipdemia, Other (peripheral vascular disease) Renal/: Yes: Renal Inusuff Musculoskeletal: Yes: Osteoarthritis Endocrine: Yes: Diabetes Mellitus (Insulin dependent) - Alcohol/Substance Use Hx Alcohol Use: No - Smoking History Smoking history: Never smoked Have you smoked in the past 12 months: No Aproximately how many cigarettes per day: 0 If you are a former smoker, when did you quit?: 2013 - Social History Usual Living Arrangement: Other (with family) History of Recent Travel: No Home Medications - Allergies Allergies/Adverse Reactions: Allergies Allergy/AdvReac Type Severity Reaction Status Date / Time No Known Drug Allergies Allergy Verified 10/02/16 14:39 - Home Medications Home Medications: Ambulatory Orders Atorvastatin Calcium 40 mg PO HS 08/10/16 Bicalutamide 50 mg PO DAILY 08/10/16 Fluticasone Prop 0.05% Nasal [Flonase -] 1 - 2 spray NS DAILY 08/10/16 Insulin Aspart [Novolog Flexpen] 12 unit SQ DAILY 08/10/16 Insulin Degludec [Tresiba Flextouch U-100] 45 unit SQ DAILY 08/10/16 Multivit-Min/FA/Lycopen/Lutein [Centrum Silver Tablet] 1 each PO DAILY 08/10/16 Acetaminophen [Tylenol .Regular Strength -] 650 mg PO Q6H PRN #0 tablet Amlodipine Besylate [Norvasc -] 10 mg PO DAILY #30 tablet 08/15/16 Docusate Sodium [Colace -] 300 mg PO HS #90 capsule 08/15/16 Sodium Hypochlorite [Dakin's Solution 0.25% (Half-Strength) -] 1 applic TP DAILY #1 bottle 08/15/16 Aspirin 81 mg PO DAILY 08/17/16 Mupirocin Ointment [Bactroban 2% Ointment -] 1 applic TP BID #30 gm 08/17/16 Family Disease History - Family Disease History Family Disease History: Diabetes: Father Review of Systems - Review of Systems Constitutional: denies: Chills, Fever Eyes: reports: No Symptoms HENT: reports: No Symptoms Neck: reports: No Symptoms Cardiovascular: reports: No Symptoms Respiratory: reports: No Symptoms Gastrointestinal: reports: No Symptoms Genitourinary: reports: No Symptoms Musculoskeletal: reports: Other (foot pain) Integumentary: reports: Erythema Neurological: reports: No Symptoms Endocrine: reports: No Symptoms Hematology/Lymphatic: reports: No Symptoms Psychiatric: reports: No Symptoms Physical Exam Vital Signs: Vital Signs Temperature 98.3 F 10/04/16 17:53 Pulse Rate 96 H 10/04/16 17:53 Respiratory Rate 18 10/04/16 17:53 Blood Pressure 134/77 10/04/16 17:53 O2 Sat by Pulse Oximetry (%) 98 10/04/16 09:00 Constitutional: Yes: Calm Eyes: Yes: Conjunctiva Clear HENT: Yes: Atraumatic Neck: Yes: Supple Cardiovascular: Yes: S1, S2 Respiratory: Yes: CTA Bilaterally Gastrointestinal: Yes: Soft Renal/: Yes: WNL Musculoskeletal: Yes: Other (left foot pain) Edema: No Integumentary: Yes: Erythema Neurological: Yes: Oriented Psychiatric: Yes: Oriented Labs: CBC, BMP 10/04/16 07:00 10/04/16 07:00 Laboratory Tests 01/09/14 10/10/15 10/10/15 07:20 12:30 21:51 WBC Hgb Plt Count Sodium Potassium Chloride Carbon Dioxide Anion Gap BUN Creatinine 1.1 1.1 D Creat Clearance w eGFR Random Glucose Urine Color Urine Appearance Urine pH Ur Specific Mallard Urine Protein Urine Glucose (UA) Urine Ketones Urine Blood Urine Nitrite Urine Bilirubin Urine Urobilinogen Ur Leukocyte Esterase Protein/Creatinin Ratio 1.0 10/13/15 08/11/16 08/13/16 06:05 06:00 06:00 WBC Hgb Plt Count Sodium Potassium Chloride Carbon Dioxide Anion Gap BUN Creatinine 1.1 1.2 1.3 Creat Clearance w eGFR Random Glucose Urine Color Urine Appearance Urine pH Ur Specific Mallard Urine Protein Urine Glucose (UA) Urine Ketones Urine Blood Urine Nitrite Urine Bilirubin Urine Urobilinogen Ur Leukocyte Esterase Protein/Creatinin Ratio 08/15/16 10/02/16 10/02/16 06:00 14:15 16:50 WBC 20.2 H D Hgb Plt Count Sodium Potassium Chloride Carbon Dioxide Anion Gap BUN Creatinine 1.3 Creat Clearance w eGFR Random Glucose Urine Color Ltyellow Urine Appearance Clear Urine pH 5.0 Ur Specific Mallard 1.018 Urine Protein 2+ H Urine Glucose (UA) 3+ H Urine Ketones Trace H Urine Blood 2+ H Urine Nitrite Negative Urine Bilirubin Negative Urine Urobilinogen Negative Ur Leukocyte Esterase Negative Protein/Creatinin Ratio 10/02/16 10/03/16 10/03/16 18:00 06:05 06:05 WBC 16.5 H Hgb 10.5 L D Plt Count 211 Sodium Potassium Chloride Carbon Dioxide Anion Gap BUN Creatinine 1.6 H D 1.3 Creat Clearance w eGFR Random Glucose Urine Color Urine Appearance Urine pH Ur Specific Mallard Urine Protein Urine Glucose (UA) Urine Ketones Urine Blood Urine Nitrite Urine Bilirubin Urine Urobilinogen Ur Leukocyte Esterase Protein/Creatinin Ratio 10/04/16 10/04/16 07:00 07:00 WBC 20.4 H Hgb 11.5 L Plt Count 219 Sodium 138 Potassium 3.7 Chloride 100 Carbon Dioxide 25 Anion Gap 13 BUN 22 H D Creatinine 1.3 Creat Clearance w eGFR 56.70 Random Glucose 239 H D Urine Color Urine Appearance Urine pH Ur Specific Mallard Urine Protein Urine Glucose (UA) Urine Ketones Urine Blood Urine Nitrite Urine Bilirubin Urine Urobilinogen Ur Leukocyte Esterase Protein/Creatinin Ratio Imaging - Results Chest X-ray: Report Reviewed Problem List - Problems (1) Cellulitis of left foot Code(s): L03.116 - CELLULITIS OF LEFT LOWER LIMB (2) Chronic kidney disease (CKD) Code(s): N18.9 - CHRONIC KIDNEY DISEASE, UNSPECIFIED (3) Diabetes 1.5, managed as type 2 Code(s): E13.9 - OTHER SPECIFIED DIABETES MELLITUS WITHOUT COMPLICATIONS (4) Fever Code(s): R50.9 - FEVER, UNSPECIFIED Assessment/Plan Current Medications Generic Name Dose Route Start Last Admin Trade Name Rob PRN Reason Stop Dose Admin Acetaminophen 650 mg 10/02/16 21:05 10/04/16 10:08 Tylenol - PO 650 mg Q6H PRN Administration FEVER OR PAIN Amlodipine Besylate 10 mg 10/03/16 10:00 10/04/16 10:06 Norvasc - PO 10 mg DAILY [facility] Administration Aspirin 81 mg 10/03/16 10:00 10/04/16 10:05 Asa - PO 81 mg DAILY [facility] Administration Atorvastatin Calcium 40 mg 10/02/16 22:00 10/03/16 22:48 Lipitor - PO 40 mg HS [facility] Administration Bicalutamide 50 mg 10/03/16 10:00 10/04/16 10:00 Casodex - PO 50 mg DAILY [facility] Administration Docusate Sodium 300 mg 10/02/16 22:00 10/03/16 22:48 Colace - PO 300 mg HS [facility] Administration Fluticasone Propionate 2 spray 10/03/16 10:00 10/04/16 12:14 Flonase - NS Not Given DAILY [facility] Heparin Sodium (Porcine) 5,000 unit 10/02/16 22:00 10/04/16 10:06 Heparin - SQ 5,000 unit BID [facility] Administration Piperacillin Sod/Tazobactam 50 mls @ 100 mls/hr 10/05/16 02:00 Sod 3.375 gm/ Sodium Chloride IVPB Q8H-IV [facility] Protocol Vancomycin HCl 1,000 mg/ 250 mls @ 166.667 mls/hr 10/05/16 04:00 Sodium Chloride IVPB BID@0400,1600 [facility] Insulin Aspart 1 vial 10/03/16 22:48 10/04/16 17:46 Novolog Vial Sliding Scale - SQ 10 units ACHS [facility] Administration Protocol Insulin Detemir 38 units 10/04/16 20:52 Levemir Vial SQ BID@0700,2200 [facility] Multivitamins/Minerals 1 each 10/03/16 10:00 10/04/16 10:06 Theragran-M PO 1 each DAILY [facility] Administration Mupirocin 1 applic 10/02/16 22:00 10/04/16 16:02 Bactroban 2% Ointment - TP 1 applic BID [facility] Administration Sodium Hypochlorite 1 applic 10/03/16 10:00 10/04/16 16:02 Dakin's Solution 0.25% (Half-Strength) - TP 1 applic DAILY [facility] Administration Impression 1. CKD 2. left heel ulcer and cellulitis 3. HTN 4. DM 5. proteinuria 6. hyperlipidemia Plan - renal function is stable for now - will check urine protein to creatinine ratio - will likely start marci when pt is more stable - will monitor renal function - cont abx - follow cultures - will get renal ultrasound - will need renal workup as outpt, will see in office. He missed his last appointment Dr Walter
[2016-10-04] MEDS: INSULIN DETEMIR 100 UNITS/ML MDV SQ SCH (22:08)
[2016-10-04] MEDS: ATORVASTATIN CA 40 MG TABLET (FP) PO SCH (22:09)
[2016-10-05] MEDS: PIPERACILLIN/TAZOB 3.375 GM 3.375 GM in SODIUM CHLORIDE 50 ML IVPB SCH ×3 (01:18→17:41)
[2016-10-05] MEDS: VANCOMYCIN 1,000 MG in SODIUM CHLORIDE 250 ML IVPB SCH ×2 (03:16→18:25)
[2016-10-05] MEDS: INSULIN SLIDING SCALE (NOVOLOG) 1 VIAL SQ SCH ×4 (06:22→22:55)
[2016-10-05] MEDS: INSULIN DETEMIR 100 UNITS/ML MDV SQ SCH ×2 (06:23→22:51)
[2016-10-05] MEDS: ACETAMINOPHEN 325 MG TABLET (FP) PO PRN (06:23)
--- NOTE | 2016-10-05 07:03 | PN ---
Progress Note, Physician - Current Medication List Current Medications: Active Medications Acetaminophen (Tylenol -) 650 mg PO Q6H PRN PRN Reason: FEVER OR PAIN Last Admin: 10/05/16 06:23 Dose: 650 mg Amlodipine Besylate (Norvasc -) 10 mg PO DAILY [facility] Last Admin: 10/04/16 10:06 Dose: 10 mg Aspirin (Asa -) 81 mg PO DAILY [facility] Last Admin: 10/04/16 10:05 Dose: 81 mg Atorvastatin Calcium (Lipitor -) 40 mg PO HS [facility] Last Admin: 10/04/16 22:09 Dose: 40 mg Bicalutamide (Casodex -) 50 mg PO DAILY [facility] Last Admin: 10/04/16 10:00 Dose: 50 mg Docusate Sodium (Colace -) 300 mg PO HS [facility] Last Admin: 10/04/16 21:58 Dose: 300 mg Fluticasone Propionate (Flonase -) 2 spray NS DAILY [facility] Last Admin: 10/04/16 12:14 Dose: Not Given Heparin Sodium (Porcine) (Heparin -) 5,000 unit SQ BID [facility] Last Admin: 10/04/16 21:59 Dose: 5,000 unit Piperacillin Sod/Tazobactam (Sod 3.375 gm/ Sodium Chloride) 50 mls @ 100 mls/ hr IVPB Q8H-IV [facility] PRN Reason: Protocol Last Admin: 10/05/16 01:18 Dose: 100 mls/hr Vancomycin HCl 1,000 mg/ (Sodium Chloride) 250 mls @ 166.667 mls/hr IVPB BID@ 0400,1600 [facility] Last Admin: 10/05/16 03:16 Dose: 166.667 mls/hr Insulin Aspart (Novolog Vial Sliding Scale -) 1 vial SQ ACHS [facility] PRN Reason: Protocol Last Admin: 10/05/16 06:22 Dose: 5 units Insulin Detemir (Levemir Vial) 38 units SQ BID@0700,2200 [facility] Last Admin: 10/05/16 06:23 Dose: 38 units Multivitamins/Minerals (Theragran-M) 1 each PO DAILY [facility] Last Admin: 10/04/16 10:06 Dose: 1 each Mupirocin (Bactroban 2% Ointment -) 1 applic TP BID [facility] Last Admin: 10/04/16 21:58 Dose: 1 applic Sodium Hypochlorite (Dakin's Solution 0.25% (Half-Strength) -) 1 applic TP DAILY [facility] Last Admin: 10/04/16 16:02 Dose: 1 applic - Objective Vital Signs: Vital Signs Temperature 98.2 F 10/05/16 06:17 Pulse Rate 90 10/05/16 06:17 Respiratory Rate 20 10/05/16 06:17 Blood Pressure 116/65 10/05/16 06:17 O2 Sat by Pulse Oximetry (%) 98 10/04/16 09:00 Neck: Yes: WNL Cardiovascular: Yes: WNL Respiratory: Yes: WNL Gastrointestinal: Yes: WNL Wound/Incision: Yes: Dressing Dry and Intact Labs: CBC, BMP 10/04/16 07:00 10/04/16 07:00 Problem List - Problems (1) Cellulitis of left foot Code(s): L03.116 - CELLULITIS OF LEFT LOWER LIMB (2) Uncontrolled diabetes mellitus Code(s): E11.65 - TYPE 2 DIABETES MELLITUS WITH HYPERGLYCEMIA (3) Chronic kidney disease (CKD) Code(s): N18.9 - CHRONIC KIDNEY DISEASE, UNSPECIFIED (4) HTN (hypertension) Code(s): I10 - ESSENTIAL (PRIMARY) HYPERTENSION Qualifiers: Assessment/Plan The patient is a 56 year old male with a significant past medical history of diabetes mellitus, osteomyelitis, prostate CA (with radioactive seeds), who presents to the ER with left foot pain for four days. Patient localizes the pain to the heel region. On interview, patient states he developed redness in the left ankle. PCP: Dr. 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
[2016-10-05 08:19] LABS: BASOPHIL 0.5 % (0-2.0); EOSINOPHIL 1.4 % (0-4.5); MCHC 33.1 g/dl (32.0-35.9); MEAN CELL VOLUME 81.6 fl (80-96); MEAN PLT VOLUME 8.8 fl (7.5-11.1); PLATELET COUNT 219 K/MM3 (134-434); RDW 14.9 % (11.9-15.9)
[2016-10-05 08:45] LABS: ANION GAP 13 (8-16); CALCIUM 8.3 mg/dL (8.5-10.1); CO2 22 mmol/L (21-32); GLUCOSE,RANDOM 131 mg/dL (74-106)
[2016-10-05 08:52] LABS: CREATININE 1.2 mg/dL (0.7-1.3); TROPONIN I < 0.02 ng/ml (0.00-0.05)
[2016-10-05 08:55] LABS: ALBUMIN 2.5 g/dl (3.4-5.0); BILIRUBIN,TOTAL 0.4 mg/dL (0.2-1.0); CALCIUM 8.5 mg/dL (8.5-10.1); COCKROFT - GAULT 74.3; CREATININE 1.3 mg/dL (0.7-1.3); TOT PROT 6.6 g/dl (6.4-8.2)
[2016-10-05] MEDS ORDERED: PT OWN MED DRAWER 7, Y5N ONE ×2 (09:45→17:38)
[2016-10-05] MEDS: MUPIROCIN 2% TOPICAL OINTMENT 22 GM TUBE TP SCH ×2 (09:55→22:50)
[2016-10-05] MEDS: HEPARIN NA (PORCINE) 5,000 UNITS/ML 1ML VIAL SQ SCH ×2 (09:55→22:51)
[2016-10-05] MEDS: FLUTICASONE PROP 0.05% 16 GM NASAL SPRAY NS SCH (09:55)
[2016-10-05] MEDS: BICALUTAMIDE 50 MG TABLET (FP) PO SCH (09:55)
[2016-10-05] MEDS: MULTIVITAMINS THER W-MINERALS COMBO TABLET (FP) PO SCH (09:55)
[2016-10-05] MEDS: amLODIPine BESYLATE 10 MG TABLET (FP) PO SCH (09:55)
[2016-10-05] MEDS: ASPIRIN 81 MG CHEWABLE TABLETS PO SCH (09:55)
[2016-10-05] MEDS: SODIUM HYPOCHLORITE 0.25%- 473 ML BULK BOTTLE TP SCH (09:56)
[2016-10-05] MEDS ORDERED: INSULIN (NOVOLOG) ASPART 100 UNITS/ML 10ML VIAL ONE (11:43)
--- NOTE | 2016-10-05 16:00 | PN ---
Progress Note (short form) - Note Progress Note: Podiatry: Seen and evaluated at bedside, NAD. Persistent tenderness to L foot. Denies F/ V/N/C/SOB/CP. Does have some reflux. Currently afebrile, VSS. SMITHA: R foot: plantar midfoot charcot DM ulcer, granular base, hyperkeratotic margins , no deep probing, no purulence, no fluctuance, no streaking cellulitis, no SOIs L foot: medial arch bulla, (+) purulence, (+) fluctuance, surrounding erythema to medial ankle, no soft tissue crepitus. WBC: 19.0 Blood Cx: no growth x 48 hrs L foot XR: no soft tissue emphysema Imp: 56 year old IDDM M with L foot DM foot infection 1. IV abx per ID 2. Bedside I&D performed with sterile #15 blade, (+) purulence noted. Dakins gauze applied. 3. Needs OR decompression. NPO at midnight. 4. Plan for OR incision and drainage tomorrow. 5. Will closely follow. Lisa Byrd DPM
--- NOTE | 2016-10-05 16:21 | PN ---
Progress Note, Physician History of Present Illness: Pt seen and examined at bedside. He is awake and alert. He denies shortness of breath. - Current Medication List Current Medications: Active Medications Acetaminophen (Tylenol -) 650 mg PO Q6H PRN PRN Reason: FEVER OR PAIN Last Admin: 10/05/16 06:23 Dose: 650 mg Amlodipine Besylate (Norvasc -) 10 mg PO DAILY [facility] Last Admin: 10/05/16 09:55 Dose: 10 mg Aspirin (Asa -) 81 mg PO DAILY [facility] Last Admin: 10/05/16 09:55 Dose: 81 mg Atorvastatin Calcium (Lipitor -) 40 mg PO HS [facility] Last Admin: 10/04/16 22:09 Dose: 40 mg Bicalutamide (Casodex -) 50 mg PO DAILY [facility] Last Admin: 10/05/16 09:55 Dose: 50 mg Docusate Sodium (Colace -) 300 mg PO HS [facility] Last Admin: 10/04/16 21:58 Dose: 300 mg Fluticasone Propionate (Flonase -) 2 spray NS DAILY [facility] Last Admin: 10/05/16 09:55 Dose: Not Given Heparin Sodium (Porcine) (Heparin -) 5,000 unit SQ BID [facility] Last Admin: 10/05/16 09:55 Dose: 5,000 unit Piperacillin Sod/Tazobactam (Sod 3.375 gm/ Sodium Chloride) 50 mls @ 100 mls/ hr IVPB Q8H-IV [facility] PRN Reason: Protocol Last Admin: 10/05/16 11:36 Dose: 100 mls/hr Vancomycin HCl 1,000 mg/ (Sodium Chloride) 250 mls @ 166.667 mls/hr IVPB BID@ 0400,1600 [facility] Last Admin: 10/05/16 03:16 Dose: 166.667 mls/hr Insulin Aspart (Novolog Vial Sliding Scale -) 1 vial SQ ACHS [facility] PRN Reason: Protocol Last Admin: 10/05/16 11:40 Dose: 6 units Insulin Detemir (Levemir Vial) 38 units SQ BID@0700,2200 [facility] Last Admin: 10/05/16 06:23 Dose: 38 units Multivitamins/Minerals (Theragran-M) 1 each PO DAILY [facility] Last Admin: 10/05/16 09:55 Dose: 1 each Mupirocin (Bactroban 2% Ointment -) 1 applic TP BID [facility] Last Admin: 10/05/16 09:55 Dose: 1 applic Sodium Hypochlorite (Dakin's Solution 0.25% (Half-Strength) -) 1 applic TP DAILY [facility] Last Admin: 10/05/16 09:56 Dose: 1 applic - Objective Vital Signs: Vital Signs Temperature 98.4 F 10/05/16 15:34 Pulse Rate 100 H 10/05/16 15:34 Respiratory Rate 18 10/05/16 15:34 Blood Pressure 129/64 10/05/16 15:34 O2 Sat by Pulse Oximetry (%) 98 10/05/16 09:00 Constitutional: Yes: Calm Eyes: Yes: Conjunctiva Clear HENT: Yes: Atraumatic Neck: Yes: Supple Cardiovascular: Yes: S1, S2 Respiratory: Yes: CTA Bilaterally Gastrointestinal: Yes: Normal Bowel Sounds, Soft Extremities: Yes: Other (dressing in place) Edema: No Integumentary: Yes: Erythema Neurological: Yes: Oriented Psychiatric: Yes: Oriented Labs: CBC, BMP 10/05/16 07:15 10/05/16 07:15 Problem List - Problems (1) Cellulitis of left foot Code(s): L03.116 - CELLULITIS OF LEFT LOWER LIMB (2) Chronic kidney disease (CKD) Code(s): N18.9 - CHRONIC KIDNEY DISEASE, UNSPECIFIED (3) Diabetes 1.5, managed as type 2 Code(s): E13.9 - OTHER SPECIFIED DIABETES MELLITUS WITHOUT COMPLICATIONS (4) Fever Code(s): R50.9 - FEVER, UNSPECIFIED Assessment/Plan Current Medications Generic Name Dose Route Start Last Admin Trade Name Rob PRN Reason Stop Dose Admin Acetaminophen 650 mg 10/02/16 21:05 10/05/16 06:23 Tylenol - PO 650 mg Q6H PRN Administration FEVER OR PAIN Amlodipine Besylate 10 mg 10/03/16 10:00 10/05/16 09:55 Norvasc - PO 10 mg DAILY [facility] Administration Aspirin 81 mg 10/03/16 10:00 10/05/16 09:55 Asa - PO 81 mg DAILY [facility] Administration Atorvastatin Calcium 40 mg 10/02/16 22:00 10/04/16 22:09 Lipitor - PO 40 mg HS [facility] Administration Bicalutamide 50 mg 10/03/16 10:00 10/05/16 09:55 Casodex - PO 50 mg DAILY [facility] Administration Docusate Sodium 300 mg 10/02/16 22:00 10/04/16 21:58 Colace - PO 300 mg HS [facility] Administration Fluticasone Propionate 2 spray 10/03/16 10:00 10/05/16 09:55 Flonase - NS Not Given DAILY [facility] Heparin Sodium (Porcine) 5,000 unit 10/02/16 22:00 10/05/16 09:55 Heparin - SQ 5,000 unit BID [facility] Administration Piperacillin Sod/Tazobactam 50 mls @ 100 mls/hr 10/05/16 02:00 10/05/16 11:36 Sod 3.375 gm/ Sodium Chloride IVPB 100 mls/hr Q8H-IV [facility] Administration Protocol Vancomycin HCl 1,000 mg/ 250 mls @ 166.667 mls/hr 10/05/16 04:00 10/05/16 03:16 Sodium Chloride IVPB 166.667 mls/hr BID@0400,1600 [facility] Administration Insulin Aspart 1 vial 10/03/16 22:48 10/05/16 11:40 Novolog Vial Sliding Scale - SQ 6 units ACHS [facility] Administration Protocol Insulin Detemir 38 units 10/04/16 20:52 10/05/16 06:23 Levemir Vial SQ 38 units BID@0700,2200 [facility] Administration Multivitamins/Minerals 1 each 10/03/16 10:00 10/05/16 09:55 Theragran-M PO 1 each DAILY [facility] Administration Mupirocin 1 applic 10/02/16 22:00 10/05/16 09:55 Bactroban 2% Ointment - TP 1 applic BID [facility] Administration Sodium Hypochlorite 1 applic 10/03/16 10:00 10/05/16 09:56 Dakin's Solution 0.25% (Half-Strength) - TP 1 applic DAILY [facility] Administration Impression 1. CKD 2. left heel ulcer and cellulitis 3. HTN 4. DM 5. proteinuria 6. hyperlipidemia Plan - called and left message with pmd for med list - monitor renal function - follow up urine studies - will need proteinuria workup - will follow urine protein to creatinine ratio - cont abx - follow cultures - follow renal ultrasound Dr Walter
[2016-10-05] MEDS: DOCUSATE SODIUM 100 MG CAPSULE (FP) PO SCH (22:51)
[2016-10-05] MEDS: ATORVASTATIN CA 40 MG TABLET (FP) PO SCH (22:51)
[2016-10-06] MEDS ORDERED: PT OWN MED DRAWER 7, Y5N ONE ×4 (01:26→11:37)
[2016-10-06] MEDS: PIPERACILLIN/TAZOB 3.375 GM 3.375 GM in SODIUM CHLORIDE 50 ML IVPB SCH (01:31)
[2016-10-06] MEDS: VANCOMYCIN 1,000 MG in SODIUM CHLORIDE 250 ML IVPB SCH (03:49)
[2016-10-06] MEDS: INSULIN DETEMIR 100 UNITS/ML MDV SQ SCH ×2 (06:12→22:10)
[2016-10-06] MEDS: INSULIN SLIDING SCALE (NOVOLOG) 1 VIAL SQ SCH ×4 (06:12→22:11)
--- NOTE | 2016-10-06 07:04 | PN ---
Progress Note, Physician Chief Complaint: NO DISTRESS NO COMPLAINTS NO CP/SOB/DIZZINESS FOR OR I&D - Current Medication List Current Medications: Active Medications Acetaminophen (Tylenol -) 650 mg PO Q6H PRN PRN Reason: FEVER OR PAIN Last Admin: 10/05/16 06:23 Dose: 650 mg Amlodipine Besylate (Norvasc -) 10 mg PO DAILY [facility] Last Admin: 10/05/16 09:55 Dose: 10 mg Aspirin (Asa -) 81 mg PO DAILY [facility] Last Admin: 10/05/16 09:55 Dose: 81 mg Atorvastatin Calcium (Lipitor -) 40 mg PO HS [facility] Last Admin: 10/05/16 22:51 Dose: 40 mg Bicalutamide (Casodex -) 50 mg PO DAILY [facility] Last Admin: 10/05/16 09:55 Dose: 50 mg Docusate Sodium (Colace -) 300 mg PO HS [facility] Last Admin: 10/05/16 22:51 Dose: Not Given Fluticasone Propionate (Flonase -) 2 spray NS DAILY [facility] Last Admin: 10/05/16 09:55 Dose: Not Given Heparin Sodium (Porcine) (Heparin -) 5,000 unit SQ BID [facility] Last Admin: 10/05/16 22:51 Dose: 5,000 unit Piperacillin Sod/Tazobactam (Sod 3.375 gm/ Sodium Chloride) 50 mls @ 100 mls/ hr IVPB Q8H-IV [facility] PRN Reason: Protocol Last Admin: 10/06/16 01:31 Dose: 100 mls/hr Vancomycin HCl 1,000 mg/ (Sodium Chloride) 250 mls @ 166.667 mls/hr IVPB BID@ 0400,1600 [facility] Last Admin: 10/06/16 03:49 Dose: 166.667 mls/hr Insulin Aspart (Novolog Vial Sliding Scale -) 1 vial SQ ACHS [facility] PRN Reason: Protocol Last Admin: 10/06/16 06:12 Dose: Not Given Insulin Detemir (Levemir Vial) 38 units SQ BID@0700,2200 [facility] Last Admin: 10/06/16 06:12 Dose: Not Given Multivitamins/Minerals (Theragran-M) 1 each PO DAILY [facility] Last Admin: 10/05/16 09:55 Dose: 1 each Mupirocin (Bactroban 2% Ointment -) 1 applic TP BID [facility] Last Admin: 10/05/16 22:50 Dose: 1 applic Sodium Hypochlorite (Dakin's Solution 0.25% (Half-Strength) -) 1 applic TP DAILY [facility] Last Admin: 10/05/16 09:56 Dose: 1 applic - Objective Vital Signs: Vital Signs Temperature 98.3 F 10/06/16 06:29 Pulse Rate 88 10/06/16 06:29 Respiratory Rate 20 10/06/16 06:29 Blood Pressure 134/74 10/06/16 06:29 O2 Sat by Pulse Oximetry (%) 98 10/05/16 21:00 Constitutional: Yes: Calm Neck: Yes: WNL Cardiovascular: Yes: WNL Respiratory: Yes: WNL Gastrointestinal: Yes: WNL Edema: Yes Wound/Incision: Yes: Dressing Dry and Intact Labs: CBC, BMP 10/05/16 07:15 10/05/16 07:15 Problem List - Problems (1) Cellulitis of left foot Code(s): L03.116 - CELLULITIS OF LEFT LOWER LIMB (2) Uncontrolled diabetes mellitus Code(s): E11.65 - TYPE 2 DIABETES MELLITUS WITH HYPERGLYCEMIA (3) Chronic kidney disease (CKD) Code(s): N18.9 - CHRONIC KIDNEY DISEASE, UNSPECIFIED (4) HTN (hypertension) Code(s): I10 - ESSENTIAL (PRIMARY) HYPERTENSION Qualifiers: Assessment/Plan The patient is a 56 year old male with a significant past medical history of diabetes mellitus, osteomyelitis, prostate CA (with radioactive seeds), who presents to the ER with left foot pain for four days. Patient localizes the pain to the heel region. On interview, patient states he developed redness in the left ankle. PCP: Dr. Darren Carr (1) Cellulitis of left foot Code(s): L03.116 - CELLULITIS OF LEFT LOWER LIMB IV ABx ID & PODI ON CASE ESR/CRP ELEVATED FOR OR TODAY (PUS FROM FOOT) CARDIO FOR CLEARANCE PATIENT IS A MODERATE RISK FOR LOW-MODERATE PODI SURGERY UNDER GENERAL ANESTHESIA (2) Uncontrolled diabetes mellitus Code(s): E11.65 - TYPE 2 DIABETES MELLITUS WITH HYPERGLYCEMIA NUTRITION & ENDO CONSULTED BGM/ISS LEVEMIR IMPROVED (3) Chronic kidney disease (CKD) Code(s): N18.9 - CHRONIC KIDNEY DISEASE, UNSPECIFIED RENAL IMPROVED (4) HTN (hypertension) Code(s): I10 - ESSENTIAL (PRIMARY) HYPERTENSION Qualifiers: SQ HEPARIN F/U 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
[2016-10-06 07:44] LABS: BASOPHIL 0.6 % (0-2.0); MCH 27.4 pg (25.7-33.7); MCHC 33.8 g/dl (32.0-35.9); MEAN CELL VOLUME 81.1 fl (80-96); MEAN PLT VOLUME 8.4 fl (7.5-11.1); NEUTROPHILS 79.9 % (42.8-82.8); PLATELET COUNT 252 K/MM3 (134-434); WHITE BLOOD COUNT 14.6 K/mm3 (4.0-10.0)
[2016-10-06] MEDS ORDERED: PROPOFOL 20 ML ONE (07:57)
[2016-10-06] MEDS ORDERED: MIDAZOLAM HCL 2 MG/2 ML SINGLE DOSE VIAL ONE (07:57)
[2016-10-06 08:02] LABS: ALBUMIN 2.5 g/dl (3.4-5.0); ALK PHOS 147 U/L (45-117); ANION GAP 12 (8-16); BILIRUBIN,TOTAL 0.3 mg/dL (0.2-1.0); CALCIUM 8.4 mg/dL (8.5-10.1); CO2 24 mmol/L (21-32); CREATININE 1.2 mg/dL (0.7-1.3); GLUCOSE,RANDOM 102 mg/dL (74-106); SGOT/AST 25 U/L (15-37); SGPT/ALT 35 U/L (12-78); TOT PROT 6.7 g/dl (6.4-8.2)
--- NOTE | 2016-10-06 08:14 | PN ---
Progress Note (short form) - Note Progress Note: Podiatry Pre-op Note: Seen and evaluated at bedside in pre-op holding. Risks, benefits, alternatives to sx discussed at length with patient. He is in agreement for planned procedure and informed consent obtained. Plan for incision and drainage L foot under MAC/Local. Lisa Byrd DPM
[2016-10-06] MEDS ORDERED: LIDOCAINE HCL 2% (20ML MULTI-DOSE VIAL) NR ONE ×2 (08:15→08:54)
[2016-10-06] MEDS ORDERED: ONDANSETRON 4 MG/2 ML VIAL IVPUSH PRN ×2 (08:31→09:50)
[2016-10-06] MEDS ORDERED: LIDOCAINE HCL 2% (50ML VIAL) INF ONE (08:38)
[2016-10-06] MEDS ORDERED: LACTATED RINGERS SOLUTION 1,000 ML IV SCH ×2 (08:45→09:50)
[2016-10-06] MEDS ORDERED: BACITRACIN 50,000 UNITS VIAL TP ONE (09:00)
--- NOTE | 2016-10-06 09:37 | OP ---
Operative Note - Note: Operative Date: 10/06/16 Pre-Operative Diagnosis: L foot abscess and cellulitis Operation: L foot incision and drainage of abscess, debridement and lavage Findings: Large abscess medial arch, left foot Post-Operative Diagnosis: Same as Pre-op Surgeon: Antonio Byrd Anesthesiologist/WIRE WORKER: Lesa Chase Anesthesia: Local, MAC Specimens Removed: abscess, left foot Estimated Blood Loss (mls): 25 Instrument used (Debridements only): #15 blade scalpel
[2016-10-06] MEDS ORDERED: oxyCODONE HCL 5 MG TABLET PO PRN (09:39)
[2016-10-06] MEDS ORDERED: ACETAMINOPHEN 325 MG TABLET (FP) PO PRN (09:50)
[2016-10-06] MEDS ORDERED: amLODIPine BESYLATE 10 MG TABLET (FP) PO SCH (10:00)
--- NOTE | 2016-10-06 10:03 | OP ---
DATE OF OPERATION: 10/06/2016 PREOPERATIVE DIAGNOSIS: Left foot abscess and cellulitis. POSTOPERATIVE DIAGNOSIS: Left foot abscess and cellulitis. PROCEDURE: Left foot incision and drainage, debridement and lavage. SURGEON: Antonio Byrd DPM WAFER PRODUCTION WORKER: None. HEMOSTASIS: None. ANESTHESIA: Local with IV sedation. ESTIMATED BLOOD LOSS: 25 mL. PATHOLOGY: Abscess, left foot. COMPLICATIONS: None. DESCRIPTION OF PROCEDURE: The patient was brought to the operating room and placed on the operating table in the supine position. I elected to not use hemostasis during this procedure. Following the induction of IV sedation, local anesthesia was achieved with 17 mL of 2% lidocaine plain. Left foot was then scrubbed, prepped, and draped in the usual aseptic fashion. Attention was directed to the left medial arch. A large abscess was visualized and appreciated with devitalized tissues surrounding the abscess site. We began by making the linear incision proximal and distal to the abscess site. The devitalized tissue was excisionally debrided to subcutaneous tissue utilizing a No. 15 blade scalpel. Immediately upon incision, there was purulent material expressed from the wound. An appropriate soft tissue culture was obtained for microbiology. The dissection was continued bluntly using James scissors decompressing all tissue planes. Once all devitalized purulent material was expressed from the wound, I irrigated thoroughly using 3 L of lactated Ringers mixed with Bacitracin in a pulsed lavage fashion. I again inspected for any pockets of purulent material. None were present. The surgical site was then packed with one 0.25-inch Iodoform packing. The proximal and distal aspects of the incision were reapproximated and maintained with 3-0 nylon in a retention suture fashion. Following the conclusion of the procedure, the surgical site was covered with sterile gauze, and a compressive dressing was applied to the left foot consisting of Omar, abdominal pad, Kerlix, and Rafa wrap. The patient tolerated the procedure and anesthesia well without complications. He was transferred from the operating room to the recovery unit with vital signs stable and neurovasculature intact to the left foot. PHILIP [id number] cc: [facility]
--- NOTE | 2016-10-06 10:44 | CON.CARD ---
Consult Consult Specialty:: Cardiology Referred by:: Dr Alva Reason for Consultation:: preop evaluation - History of Present Illness Chief Complaint: left foot abcess History of Present Illness: 56M history of HTN, NIDDM, Prostate CA s/p XRT seed implant 07/13, PVD s/p left TMA and right toe amputations, peripheral neuropathy, exsmoker, exEToH, chronic right foot osteomyelitis admitted with left foot abcess. Seen postop I&D under local anesthesia. Denies history of angina, ME, cp, sob, orthopnea, pnd or edema. 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: Peripheral Neuropathy, Other (IDDM) Cardio/Vascular: Yes: HTN, Hyperlipdemia, Other (peripheral vascular disease) Renal/: Yes: Renal Inusuff Musculoskeletal: Yes: Osteoarthritis Endocrine: Yes: Diabetes Mellitus (Insulin dependent) - Past Surgical History Past Surgical History: Yes: Amputation (lt tma, rt toes, prostate seed implant.) - Alcohol/Substance Use Hx Alcohol Use: No - Smoking History Smoking history: Never smoked Have you smoked in the past 12 months: No Aproximately how many cigarettes per day: 0 If you are a former smoker, when did you quit?: 2012 - Social History Usual Living Arrangement: Other (with family) History of Recent Travel: No Home Medications - Allergies Allergies/Adverse Reactions: Allergies Allergy/AdvReac Type Severity Reaction Status Date / Time No Known Drug Allergies Allergy Verified 10/02/16 14:39 - Home Medications Home Medications: Ambulatory Orders Atorvastatin Calcium 40 mg PO HS 08/10/16 Bicalutamide 50 mg PO DAILY 08/10/16 Fluticasone Prop 0.05% Nasal [Flonase -] 1 - 2 spray NS DAILY 08/10/16 Insulin Aspart [Novolog Flexpen] 12 unit SQ DAILY 08/10/16 Insulin Degludec [Tresiba Flextouch U-100] 45 unit SQ DAILY 08/10/16 Multivit-Min/FA/Lycopen/Lutein [Centrum Silver Tablet] 1 each PO DAILY 08/10/16 Acetaminophen [Tylenol .Regular Strength -] 650 mg PO Q6H PRN #0 tablet Amlodipine Besylate [Norvasc -] 10 mg PO DAILY #30 tablet 08/15/16 Docusate Sodium [Colace -] 300 mg PO HS #90 capsule 08/15/16 Sodium Hypochlorite [Dakin's Solution 0.25% (Half-Strength) -] 1 applic TP DAILY #1 bottle 08/15/16 Aspirin 81 mg PO DAILY 08/17/16 Mupirocin Ointment [Bactroban 2% Ointment -] 1 applic TP BID #30 gm 08/17/16 Family Disease History - Family Disease History Family Disease History: Diabetes: Father Review of Systems - Review of Systems Constitutional: reports: No Symptoms Eyes: reports: No Symptoms HENT: reports: No Symptoms Neck: reports: No Symptoms Cardiovascular: reports: No Symptoms Respiratory: reports: No Symptoms Gastrointestinal: reports: No Symptoms Genitourinary: reports: No Symptoms Breasts: reports: No Symptoms Reported Musculoskeletal: reports: No Symptoms Vital Signs: Vital Signs Temperature 98.0 F 10/06/16 10:00 Pulse Rate 80 10/06/16 10:00 Respiratory Rate 20 10/06/16 10:00 Blood Pressure 116/75 10/06/16 10:00 O2 Sat by Pulse Oximetry (%) 96 10/06/16 09:45 Constitutional: Yes: Well Nourished, No Distress, Calm Eyes: Yes: WNL, Conjunctiva Clear, EOM Intact HENT: Yes: WNL, Atraumatic, Normocephalic Neck: Yes: WNL, Supple, Trachea Midline Respiratory: Yes: WNL, Regular, CTA Bilaterally Gastrointestinal: Yes: WNL, Normal Bowel Sounds Renal/: Yes: WNL Cardiovascular: Yes: WNL, Regular Rate and Rhythm Musculoskeletal: Yes: WNL Extremities: Yes: WNL, Other (left tma with clean bandage. rt toe amps.) Integumentary: Yes: WNL Neurological: Yes: WNL, Alert, Oriented ...Motor Strength: WNL Psychiatric: Yes: WNL, Alert, Oriented - Other Data Labs, Other Data: CBC, BMP 10/06/16 06:00 10/06/16 06:00 Imaging - Results Chest X-ray: Report Reviewed EKG: Pending, Report Reviewed (nsr lad nssttw changes. no ischemic changes.) Problem List - Problems (1) Preop cardiovascular exam Assessment/Plan: He is at low risk for cardiovascular events perioperatively from local anesthesia I&D. Despite multiple risk factors he has no evidence of symptomatic CAD. If he needs further/more extensive surgery or vascular surgery he would be at low to intermediate risk of cardiovascular events. No further cardiac testing is needed. He is medically optimized. Stable postop cardiac status. Will see as needed. Please call with any questions. Code(s): Z01.810 - ENCOUNTER FOR PREPROCEDURAL CARDIOVASCULAR EXAMINATION
[2016-10-06] MEDS: MULTIVITAMINS THER W-MINERALS COMBO TABLET (FP) PO SCH (11:45)
[2016-10-06] MEDS: ASPIRIN 81 MG CHEWABLE TABLETS PO SCH (11:45)
[2016-10-06] MEDS: PIPERACILLIN/TAZOB 3.375 GM 50 ML IVPB SCH ×2 (11:46→18:30)
[2016-10-06] MEDS: HEPARIN NA (PORCINE) 5,000 UNITS/ML 1ML VIAL SQ SCH ×2 (11:46→22:10)
[2016-10-06] MEDS: BICALUTAMIDE 50 MG TABLET (FP) PO SCH (11:46)
--- NOTE | 2016-10-06 11:52 | PN ---
Progress Note, Physician History of Present Illness: Pt seen and examined at bedside. He is awake and alert. He denies shortness of breath. He denies dysuria. - Current Medication List Current Medications: Active Medications Acetaminophen (Tylenol -) 650 mg PO Q6H PRN PRN Reason: FEVER OR PAIN Amlodipine Besylate (Norvasc -) 10 mg PO DAILY [facility] Aspirin (Asa -) 81 mg PO DAILY [facility] Atorvastatin Calcium (Lipitor -) 40 mg PO HS [facility] Bicalutamide (Casodex -) 50 mg PO DAILY [facility] Docusate Sodium (Colace -) 300 mg PO HS [facility] Fentanyl (Sublimaze Injection -) 50 mcg IVPUSH [id number] PRN PRN Reason: PAIN Stop: 10/09/16 08:32 Fluticasone Propionate (Flonase -) 2 spray NS DAILY [facility] Heparin Sodium (Porcine) (Heparin -) 5,000 unit SQ BID [facility] Piperacillin Sod/Tazobactam Sod (Zosyn 3.375gm Ivpb (Pre-Docked)) 50 mls @ 100 mls/hr IVPB Q8H-IV [facility] PRN Reason: Protocol Vancomycin HCl (Vancomycin (Pre-Docked)) 250 mls @ 166.667 mls/hr IVPB BID@0400 ,1600 [facility] Insulin Aspart (Novolog Vial Sliding Scale -) 1 vial SQ ACHS [facility] PRN Reason: Protocol Insulin Detemir (Levemir Vial) 38 units SQ BID@0700,2200 [facility] Multivitamins/Minerals (Theragran-M) 1 each PO DAILY [facility] Mupirocin (Bactroban 2% Ointment -) 1 applic TP BID [facility] Ondansetron HCl (Zofran Injection) 4 mg IVPUSH Q6H PRN PRN Reason: NAUSEA AND/OR VOMITING Stop: 10/06/16 14:32 Oxycodone HCl (Roxicodone -) 5 mg PO Q4H PRN PRN Reason: PAIN LEVEL 1-5 Sodium Hypochlorite (Dakin's Solution 0.25% (Half-Strength) -) 1 applic TP DAILY [facility] - Objective Vital Signs: Vital Signs Temperature 97.7 F 10/06/16 10:00 Pulse Rate 85 10/06/16 10:00 Respiratory Rate 18 10/06/16 10:00 Blood Pressure 114/74 10/06/16 10:00 O2 Sat by Pulse Oximetry (%) 96 10/06/16 09:45 Constitutional: Yes: Calm Eyes: Yes: Conjunctiva Clear HENT: Yes: Atraumatic Neck: Yes: Supple Cardiovascular: Yes: S1, S2 Respiratory: Yes: CTA Bilaterally Gastrointestinal: Yes: Soft Genitourinary: Yes: WNL Musculoskeletal: Yes: Other (dressing in place) Edema: No Neurological: Yes: Oriented Psychiatric: Yes: Oriented Labs: CBC, BMP 10/06/16 06:00 10/06/16 06:00 Problem List - Problems (1) Cellulitis of left foot Code(s): L03.116 - CELLULITIS OF LEFT LOWER LIMB (2) Chronic kidney disease (CKD) Code(s): N18.9 - CHRONIC KIDNEY DISEASE, UNSPECIFIED (3) Diabetes 1.5, managed as type 2 Code(s): E13.9 - OTHER SPECIFIED DIABETES MELLITUS WITHOUT COMPLICATIONS (4) Fever Code(s): R50.9 - FEVER, UNSPECIFIED Assessment/Plan Current Medications Generic Name Dose Route Start Last Admin Trade Name Freq PRN Reason Stop Dose Admin Acetaminophen 650 mg 10/06/16 09:50 Tylenol - PO Q6H PRN FEVER OR PAIN Amlodipine Besylate 10 mg 10/06/16 10:00 Norvasc - PO DAILY [facility] Aspirin 81 mg 10/06/16 10:00 Asa - PO DAILY [facility] Atorvastatin Calcium 40 mg 10/06/16 22:00 Lipitor - PO HS [facility] Bicalutamide 50 mg 10/06/16 10:00 Casodex - PO DAILY [facility] Docusate Sodium 300 mg 10/06/16 22:00 Colace - PO HS [facility] Fentanyl 50 mcg 10/06/16 09:50 Sublimaze Injection - IVPUSH 10/09/16 08:32 [id number] PRN PAIN Fluticasone Propionate 2 spray 10/06/16 10:00 Flonase - NS DAILY [facility] Heparin Sodium (Porcine) 5,000 unit 10/06/16 10:00 Heparin - SQ BID [facility] Piperacillin Sod/Tazobactam Sod 50 mls @ 100 mls/hr 10/06/16 10:00 Zosyn 3.375gm Ivpb (Pre-Docked) IVPB Q8H-IV [facility] Protocol Vancomycin HCl 250 mls @ 166.667 mls/hr 10/06/16 16:00 Vancomycin (Pre-Docked) IVPB BID@0400,1600 [facility] Insulin Aspart 1 vial 10/06/16 11:00 Novolog Vial Sliding Scale - SQ ACHS [facility] Protocol Insulin Detemir 38 units 10/06/16 22:00 Levemir Vial SQ BID@0700,2200 [facility] Multivitamins/Minerals 1 each 10/06/16 10:00 Theragran-M PO DAILY [facility] Mupirocin 1 applic 10/06/16 10:00 Bactroban 2% Ointment - TP BID [facility] Ondansetron HCl 4 mg 10/06/16 09:50 Zofran Injection IVPUSH 10/06/16 14:32 Q6H PRN NAUSEA AND/OR VOMITING Oxycodone HCl 5 mg 10/06/16 09:39 Roxicodone - PO Q4H PRN PAIN LEVEL 1-5 Sodium Hypochlorite 1 applic 10/06/16 10:00 Dakin's Solution 0.25% (Half-Strength) - TP DAILY [facility] Impression 1. CKD 2. left heel ulcer and cellulitis 3. HTN 4. DM 5. proteinuria 6. hyperlipidemia Plan - discussed case with pmd in community, pt was not on marci or arb as his blood pressure was low - will hold norvasc and start lisinopril - monitor renal function and potassium - wound care to leg - will need proteinuria workup - will follow urine protein to creatinine ratio - cont abx - follow cultures - renal ultrasound reviewed Dr Walter
[2016-10-06] MEDS: FLUTICASONE PROP 0.05% 16 GM NASAL SPRAY NS SCH (12:06)
[2016-10-06] MEDS: SODIUM HYPOCHLORITE 0.25%- 473 ML BULK BOTTLE TP SCH (12:07)
[2016-10-06] MEDS: MUPIROCIN 2% TOPICAL OINTMENT 22 GM TUBE TP SCH ×2 (12:08→22:36)
[2016-10-06] MEDS: VANCOMYCIN 1 GRAM (PRE-DOCKED) 250 ML IVPB SCH (16:08)
[2016-10-06] MEDS: DOCUSATE SODIUM 100 MG CAPSULE (FP) PO SCH (22:09)
[2016-10-06] MEDS: ATORVASTATIN CA 40 MG TABLET (FP) PO SCH (22:11)
[2016-10-07] MEDS: PIPERACILLIN/TAZOB 3.375 GM 50 ML IVPB SCH ×2 (01:26→13:57)
[2016-10-07] MEDS: VANCOMYCIN 1 GRAM (PRE-DOCKED) 250 ML IVPB SCH ×2 (03:58→16:06)
[2016-10-07] MEDS: INSULIN DETEMIR 100 UNITS/ML MDV SQ SCH ×2 (06:27→22:10)
[2016-10-07] MEDS: INSULIN SLIDING SCALE (NOVOLOG) 1 VIAL SQ SCH ×4 (06:31→22:11)
--- NOTE | 2016-10-07 06:48 | PN ---
Progress Note, Physician - Current Medication List Current Medications: Active Medications Acetaminophen (Tylenol -) 650 mg PO Q6H PRN PRN Reason: FEVER OR PAIN Aspirin (Asa -) 81 mg PO DAILY [facility] Last Admin: 10/06/16 11:45 Dose: 81 mg Atorvastatin Calcium (Lipitor -) 40 mg PO HS [facility] Last Admin: 10/06/16 22:11 Dose: 40 mg Bicalutamide (Casodex -) 50 mg PO DAILY [facility] Last Admin: 10/06/16 11:46 Dose: 50 mg Docusate Sodium (Colace -) 300 mg PO HS [facility] Last Admin: 10/06/16 22:09 Dose: Not Given Fentanyl (Sublimaze Injection -) 50 mcg IVPUSH [id number] PRN PRN Reason: PAIN Stop: 10/09/16 08:32 Fluticasone Propionate (Flonase -) 2 spray NS DAILY [facility] Last Admin: 10/06/16 12:06 Dose: Not Given Heparin Sodium (Porcine) (Heparin -) 5,000 unit SQ BID [facility] Last Admin: 10/06/16 22:10 Dose: 5,000 unit Piperacillin Sod/Tazobactam Sod (Zosyn 3.375gm Ivpb (Pre-Docked)) 50 mls @ 100 mls/hr IVPB Q8H-IV [facility] PRN Reason: Protocol Last Admin: 10/07/16 01:26 Dose: 100 mls/hr Vancomycin HCl (Vancomycin (Pre-Docked)) 250 mls @ 166.667 mls/hr IVPB BID@0400 ,1600 [facility] Last Admin: 10/07/16 03:58 Dose: 166.667 mls/hr Insulin Aspart (Novolog Vial Sliding Scale -) 1 vial SQ ACHS [facility] PRN Reason: Protocol Last Admin: 10/07/16 06:31 Dose: 6 units Insulin Detemir (Levemir Vial) 38 units SQ BID@0700,2200 [facility] Last Admin: 10/07/16 06:27 Dose: 38 unit Lisinopril (Prinivil) 5 mg PO DAILY [facility] Multivitamins/Minerals (Theragran-M) 1 each PO DAILY [facility] Last Admin: 10/06/16 11:45 Dose: 1 each Mupirocin (Bactroban 2% Ointment -) 1 applic TP BID [facility] Last Admin: 10/06/16 22:36 Dose: Not Given Oxycodone HCl (Roxicodone -) 5 mg PO Q4H PRN PRN Reason: PAIN LEVEL 1-5 Sodium Hypochlorite (Dakin's Solution 0.25% (Half-Strength) -) 1 applic TP DAILY [facility] Last Admin: 10/06/16 12:07 Dose: 1 applic - Objective Vital Signs: Vital Signs Temperature 97.9 F 10/07/16 06:36 Pulse Rate 83 10/07/16 06:36 Respiratory Rate 18 10/07/16 06:36 Blood Pressure 130/80 10/07/16 06:36 O2 Sat by Pulse Oximetry (%) 98 10/06/16 21:00 Constitutional: Yes: Calm Neck: Yes: WNL Cardiovascular: Yes: WNL Respiratory: Yes: WNL Gastrointestinal: Yes: WNL Edema: No Wound/Incision: Yes: Dressing Dry and Intact Labs: CBC, BMP 10/06/16 06:00 10/06/16 06:00 Problem List - Problems (1) Cellulitis of left foot Code(s): L03.116 - CELLULITIS OF LEFT LOWER LIMB (2) Uncontrolled diabetes mellitus Code(s): E11.65 - TYPE 2 DIABETES MELLITUS WITH HYPERGLYCEMIA (3) Chronic kidney disease (CKD) Code(s): N18.9 - CHRONIC KIDNEY DISEASE, UNSPECIFIED (4) HTN (hypertension) Code(s): I10 - ESSENTIAL (PRIMARY) HYPERTENSION Qualifiers: Assessment/Plan The patient is a 56 year old male with a significant past medical history of diabetes mellitus, osteomyelitis, prostate CA (with radioactive seeds), who presents to the ER with left foot pain for four days. Patient localizes the pain to the heel region. On interview, patient states he developed redness in the left ankle. PCP: Dr. Darren Carr (1) Cellulitis of left foot Code(s): L03.116 - CELLULITIS OF LEFT LOWER LIMB IV ABx ID & PODI ON CASE ESR/CRP ELEVATED CARDIO FOR CLEARANCE APPRECIATED APPRECIATE PODI OP NOTE Operative Date: 10/06/16 Pre-Operative Diagnosis: L foot abscess and cellulitis Operation: L foot incision and drainage of abscess, debridement and lavage Findings: Large abscess medial arch, left foot Post-Operative Diagnosis: Same as Pre-op Surgeon: Antonio Byrd Anesthesiologist/FREIGHT ADJUSTER: Lesa Chase Anesthesia: Local, MAC Specimens Removed: abscess, left foot (2) Uncontrolled diabetes mellitus Code(s): E11.65 - TYPE 2 DIABETES MELLITUS WITH HYPERGLYCEMIA NUTRITION & ENDO CONSULTED BGM/ISS LEVEMIR IMPROVED (3) Chronic kidney disease (CKD) Code(s): N18.9 - CHRONIC KIDNEY DISEASE, UNSPECIFIED RENAL IMPROVED (4) HTN (hypertension) Code(s): I10 - ESSENTIAL (PRIMARY) HYPERTENSION Qualifiers: SQ HEPARIN F/U TROP -> NEG x 2 TRACTOR DISTRIBUTOR FM
--- NOTE | 2016-10-07 08:26 | PN ---
Progress Note (short form) - Note Progress Note: Podiatry: Seen and evaluated at bedside, NAD. Pain controlled, denies F/V/N/C/SOB/CP. S/ p L foot incision and drainage for severe DM abscess POD # 1. Afebrile, VSS. SMITHA: L foot: dressing C/D/I, no active bleeding, mild strikethrough. Large post- surgical wound medial arch, retention sutures well coapted proximally and distally, central wound packed open. Mixed fibrogranular wound base, exposed flexor tendons, no purulence expressed from wound, surrounding erythema showing mild improvement, no ST crepitus, no fluctuance. Minimal tenderness to palpation. WBC: pending for today OR Wound Cx: pending Imp: 56 year old IDDM s/p L foot incision and drainage POD # 1 1. Packing removed today. Dakin's irrigation and dakin's dressing applied L foot. 2. F/u labs, cultures 3. Needs wound VAC 4. Will wait for infection to settle prior to placing wound VAC 5. Discussed with patient guarded prognosis for limb salvage, given the fact he already has TMA on the infected foot 6. Will need home nursing services for VAC care upon d/c 7. Will follow. Lisa Byrd DPM
[2016-10-07 08:32] LABS: BASOPHIL 0.8 % (0-2.0); EOSINOPHIL 4.4 % (0-4.5); MCH 27.7 pg (25.7-33.7); MCHC 34.5 g/dl (32.0-35.9); MEAN CELL VOLUME 80.4 fl (80-96); MEAN PLT VOLUME 8.3 fl (7.5-11.1); NEUTROPHILS 77.2 % (42.8-82.8); PLATELET COUNT 249 K/MM3 (134-434); RDW 14.9 % (11.9-15.9); WHITE BLOOD COUNT 10.4 K/mm3 (4.0-10.0)
[2016-10-07 09:12] LABS: ALBUMIN 2.4 g/dl (3.4-5.0); ALK PHOS 150 U/L (45-117); ANION GAP 10 (8-16); BILIRUBIN,TOTAL 0.4 mg/dL (0.2-1.0); CALCIUM 8.1 mg/dL (8.5-10.1); CO2 25 mmol/L (21-32); COCKROFT - GAULT 87.82; CREATININE 1.1 mg/dL (0.7-1.3); GLUCOSE,RANDOM 218 mg/dL (74-106); SGOT/AST 28 U/L (15-37); SGPT/ALT 43 U/L (12-78); TOT PROT 6.4 g/dl (6.4-8.2)
[2016-10-07] MEDS ORDERED: PT OWN MED DRAWER 7, Y5N ONE (10:22)
--- NOTE | 2016-10-07 10:22 | PN ---
Progress Note, Physician History of Present Illness: S/P I&D L foot abscess No c/o pain No fever/ chills Temps down- afebrile WBC 10.4 - Current Medication List Current Medications: Active Medications Acetaminophen (Tylenol -) 650 mg PO Q6H PRN PRN Reason: FEVER OR PAIN Aspirin (Asa -) 81 mg PO DAILY [facility] Last Admin: 10/06/16 11:45 Dose: 81 mg Atorvastatin Calcium (Lipitor -) 40 mg PO HS [facility] Last Admin: 10/06/16 22:11 Dose: 40 mg Bicalutamide (Casodex -) 50 mg PO DAILY [facility] Last Admin: 10/06/16 11:46 Dose: 50 mg Docusate Sodium (Colace -) 300 mg PO HS [facility] Last Admin: 10/06/16 22:09 Dose: Not Given Fentanyl (Sublimaze Injection -) 50 mcg IVPUSH [id number] PRN PRN Reason: PAIN Stop: 10/09/16 08:32 Fluticasone Propionate (Flonase -) 2 spray NS DAILY [facility] Last Admin: 10/06/16 12:06 Dose: Not Given Heparin Sodium (Porcine) (Heparin -) 5,000 unit SQ BID [facility] Last Admin: 10/06/16 22:10 Dose: 5,000 unit Piperacillin Sod/Tazobactam Sod (Zosyn 3.375gm Ivpb (Pre-Docked)) 50 mls @ 100 mls/hr IVPB Q8H-IV [facility] PRN Reason: Protocol Last Admin: 10/07/16 01:26 Dose: 100 mls/hr Vancomycin HCl (Vancomycin (Pre-Docked)) 250 mls @ 166.667 mls/hr IVPB BID@0400 ,1600 [facility] Last Admin: 10/07/16 03:58 Dose: 166.667 mls/hr Famotidine/Sodium Chloride (Pepcid 20 Mg Premixed Ivpb -) 50 mls @ 100 mls/hr IVPB BID [facility] Insulin Aspart (Novolog Vial Sliding Scale -) 1 vial SQ ACHS [facility] PRN Reason: Protocol Last Admin: 10/07/16 06:31 Dose: 6 units Insulin Detemir (Levemir Vial) 38 units SQ BID@0700,2200 [facility] Last Admin: 10/07/16 06:27 Dose: 38 unit Lisinopril (Prinivil) 5 mg PO DAILY [facility] Multivitamins/Minerals (Theragran-M) 1 each PO DAILY [facility] Last Admin: 10/06/16 11:45 Dose: 1 each Mupirocin (Bactroban 2% Ointment -) 1 applic TP BID [facility] Last Admin: 10/06/16 22:36 Dose: Not Given Oxycodone HCl (Roxicodone -) 5 mg PO Q4H PRN PRN Reason: PAIN LEVEL 1-5 Sodium Hypochlorite (Dakin's Solution 0.25% (Half-Strength) -) 1 applic TP DAILY [facility] Last Admin: 10/06/16 12:07 Dose: 1 applic - Objective Vital Signs: Vital Signs Temperature 99.1 F 10/07/16 08:45 Pulse Rate 83 10/07/16 08:45 Respiratory Rate 16 10/07/16 08:45 Blood Pressure 124/68 10/07/16 08:45 O2 Sat by Pulse Oximetry (%) 98 10/06/16 21:00 Constitutional: Yes: No Distress Eyes: Yes: Conjunctiva Clear Cardiovascular: Yes: Regular Rate and Rhythm, S1, S2 Respiratory: Yes: CTA Bilaterally Gastrointestinal: Yes: Normal Bowel Sounds, Soft. No: Tenderness Extremities: Yes: Other (R fot wound with packing decreased erythema) Labs: CBC, BMP 10/07/16 07:15 10/07/16 07:15 Assessment/Plan Cellulitis L foot S/P I&D L foot abscess Azotemia Diabetes mellitus Await wound c/s Continue vancomycin D/C zosyn
[2016-10-07] MEDS: LISINOPRIL 5 MG TABLET (FP) PO SCH (10:27)
[2016-10-07] MEDS: FAMOTIDINE 20 MG/50 ML IVPB 50 ML IVPB SCH ×2 (10:27→22:11)
[2016-10-07] MEDS: BICALUTAMIDE 50 MG TABLET (FP) PO SCH (10:27)
[2016-10-07] MEDS: MULTIVITAMINS THER W-MINERALS COMBO TABLET (FP) PO SCH (10:27)
[2016-10-07] MEDS: ASPIRIN 81 MG CHEWABLE TABLETS PO SCH (10:27)
[2016-10-07] MEDS: HEPARIN NA (PORCINE) 5,000 UNITS/ML 1ML VIAL SQ SCH ×2 (10:27→22:11)
[2016-10-07] MEDS: SODIUM HYPOCHLORITE 0.25%- 473 ML BULK BOTTLE TP SCH (11:00)
[2016-10-07] MEDS: FLUTICASONE PROP 0.05% 16 GM NASAL SPRAY NS SCH (11:36)
--- NOTE | 2016-10-07 12:36 | PATH ---
Surgical Pathology Report Patient Name: STEVE CALDERON Med. Rec. #: [id number] /Age/Gender: 1960 (Age: 56) / M Account: [id number] Location: [facility] MED/SURG Taken: 10/06/2016 Received: 10/06/2016 Reported: 10/07/2016 Physicians: Antonio Byrd DPM Specimen(s) Received ABSCESS LEFT FOOT Clinical History Cellulitis and abscess of left foot Final Diagnosis SOFT TISSUE, LEFT FOOT, ABSCESS, INCISION AND DRAINAGE: BENIGN FIBROFATTY TISSUE WITH ACUTE NECROTIZING INFLAMMATION AND GANGRENOUS NECROSIS. Electronically Signed Kody Dyer M.D. Gross Description Received in formalin labeled "abscess left foot" is a 5.5 x 5.0 x 0.4 cm aggregate of anaya-red, necrotic soft tissue fragments. A franchise sales representative portion is submitted in one cassette. /10/06/2016 saudi/10/06/2016
--- NOTE | 2016-10-07 15:51 | PN ---
Progress Note, Physician History of Present Illness: Pt seen and examined at bedside. He is awake and alert. He denies fevers or chills. - Current Medication List Current Medications: Active Medications Acetaminophen (Tylenol -) 650 mg PO Q6H PRN PRN Reason: FEVER OR PAIN Aspirin (Asa -) 81 mg PO DAILY [facility] Last Admin: 10/07/16 10:27 Dose: 81 mg Atorvastatin Calcium (Lipitor -) 40 mg PO HS [facility] Last Admin: 10/06/16 22:11 Dose: 40 mg Bicalutamide (Casodex -) 50 mg PO DAILY [facility] Last Admin: 10/07/16 10:27 Dose: 50 mg Docusate Sodium (Colace -) 300 mg PO HS [facility] Last Admin: 10/06/16 22:09 Dose: Not Given Fentanyl (Sublimaze Injection -) 50 mcg IVPUSH [id number] PRN PRN Reason: PAIN Stop: 10/09/16 08:32 Fluticasone Propionate (Flonase -) 2 spray NS DAILY [facility] Last Admin: 10/07/16 11:36 Dose: Not Given Heparin Sodium (Porcine) (Heparin -) 5,000 unit SQ BID [facility] Last Admin: 10/07/16 10:27 Dose: 5,000 unit Vancomycin HCl (Vancomycin (Pre-Docked)) 250 mls @ 166.667 mls/hr IVPB BID@0400 ,1600 [facility] Last Admin: 10/07/16 03:58 Dose: 166.667 mls/hr Famotidine/Sodium Chloride (Pepcid 20 Mg Premixed Ivpb -) 50 mls @ 100 mls/hr IVPB BID [facility] Last Admin: 10/07/16 10:27 Dose: 100 mls/hr Insulin Aspart (Novolog Vial Sliding Scale -) 1 vial SQ ACHS [facility] PRN Reason: Protocol Last Admin: 10/07/16 12:15 Dose: 8 units Insulin Detemir (Levemir Vial) 38 units SQ BID@0700,2200 [facility] Last Admin: 10/07/16 06:27 Dose: 38 unit Lisinopril (Prinivil) 5 mg PO DAILY [facility] Last Admin: 10/07/16 10:27 Dose: 5 mg Multivitamins/Minerals (Theragran-M) 1 each PO DAILY [facility] Last Admin: 10/07/16 10:27 Dose: 1 each Mupirocin (Bactroban 2% Ointment -) 1 applic TP BID [facility] Last Admin: 10/06/16 22:36 Dose: Not Given Oxycodone HCl (Roxicodone -) 5 mg PO Q4H PRN PRN Reason: PAIN LEVEL 1-5 Sodium Hypochlorite (Dakin's Solution 0.25% (Half-Strength) -) 1 applic TP DAILY [facility] Last Admin: 10/06/16 12:07 Dose: 1 applic - Objective Vital Signs: Vital Signs Temperature 98.3 F 10/07/16 15:35 Pulse Rate 84 10/07/16 15:35 Respiratory Rate 18 10/07/16 15:35 Blood Pressure 126/74 10/07/16 15:35 O2 Sat by Pulse Oximetry (%) 94 L 10/07/16 09:00 Constitutional: Yes: Calm Eyes: Yes: Conjunctiva Clear HENT: Yes: Atraumatic Neck: Yes: Supple Cardiovascular: Yes: S1, S2 Respiratory: Yes: CTA Bilaterally Gastrointestinal: Yes: Soft Genitourinary: Yes: WNL Edema: No Wound/Incision: Yes: Dressing Dry and Intact Neurological: Yes: Oriented Labs: CBC, BMP 10/07/16 07:15 10/07/16 07:15 Problem List - Problems (1) Cellulitis of left foot Code(s): L03.116 - CELLULITIS OF LEFT LOWER LIMB (2) Chronic kidney disease (CKD) Code(s): N18.9 - CHRONIC KIDNEY DISEASE, UNSPECIFIED (3) Diabetes 1.5, managed as type 2 Code(s): E13.9 - OTHER SPECIFIED DIABETES MELLITUS WITHOUT COMPLICATIONS (4) Fever Code(s): R50.9 - FEVER, UNSPECIFIED Assessment/Plan Current Medications Generic Name Dose Route Start Last Admin Trade Name Freq PRN Reason Stop Dose Admin Acetaminophen 650 mg 10/06/16 09:50 Tylenol - PO Q6H PRN FEVER OR PAIN Aspirin 81 mg 10/06/16 10:00 10/07/16 10:27 Asa - PO 81 mg DAILY [facility] Administration Atorvastatin Calcium 40 mg 10/06/16 22:00 10/06/16 22:11 Lipitor - PO 40 mg HS [facility] Administration Bicalutamide 50 mg 10/06/16 10:00 10/07/16 10:27 Casodex - PO 50 mg DAILY [facility] Administration Docusate Sodium 300 mg 10/06/16 22:00 10/06/16 22:09 Colace - PO Not Given HS [facility] Fentanyl 50 mcg 10/06/16 09:50 Sublimaze Injection - IVPUSH 10/09/16 08:32 [id number] PRN PAIN Fluticasone Propionate 2 spray 10/06/16 10:00 10/07/16 11:36 Flonase - NS Not Given DAILY [facility] Heparin Sodium (Porcine) 5,000 unit 10/06/16 10:00 10/07/16 10:27 Heparin - SQ 5,000 unit BID [facility] Administration Vancomycin HCl 250 mls @ 166.667 mls/hr 10/06/16 16:00 10/07/16 03:58 Vancomycin (Pre-Docked) IVPB 166.667 mls/hr BID@0400,1600 [facility] Administration Famotidine/Sodium Chloride 50 mls @ 100 mls/hr 10/07/16 10:00 10/07/16 10:27 Pepcid 20 Mg Premixed Ivpb - IVPB 100 mls/hr BID [facility] Administration Insulin Aspart 1 vial 10/06/16 11:00 10/07/16 12:15 Novolog Vial Sliding Scale - SQ 8 units ACHS [facility] Administration Protocol Insulin Detemir 38 units 10/06/16 22:00 10/07/16 06:27 Levemir Vial SQ 38 unit BID@0700,2200 [facility] Administration Lisinopril 5 mg 10/07/16 10:00 10/07/16 10:27 Prinivil PO 5 mg DAILY [facility] Administration Multivitamins/Minerals 1 each 10/06/16 10:00 10/07/16 10:27 Theragran-M PO 1 each DAILY [facility] Administration Mupirocin 1 applic 10/06/16 10:00 10/06/16 22:36 Bactroban 2% Ointment - TP Not Given BID [facility] Oxycodone HCl 5 mg 10/06/16 09:39 Roxicodone - PO Q4H PRN PAIN LEVEL 1-5 Sodium Hypochlorite 1 applic 10/06/16 10:00 10/06/16 12:07 Dakin's Solution 0.25% (Half-Strength) - TP 1 applic DAILY [facility] Administration Impression 1. CKD 2. left heel ulcer and cellulitis 3. HTN 4. DM 5. proteinuria 6. hyperlipidemia Plan - BP is stable, continue to monitor - cont with lisinopril, can titrate dose up if BP is elevated and if he tolerates - wound care to leg - will need proteinuria workup - will follow urine protein to creatinine ratio, will re-order - will follow PRN Dr Walter
[2016-10-07] MEDS: MUPIROCIN 2% TOPICAL OINTMENT 22 GM TUBE TP SCH ×2 (17:06→22:10)
[2016-10-07 20:36] LABS: URINE CREATININE 69.1 mg/dL
[2016-10-07] MEDS: ATORVASTATIN CA 40 MG TABLET (FP) PO SCH (21:55)
[2016-10-07] MEDS: DOCUSATE SODIUM 100 MG CAPSULE (FP) PO SCH (22:11)
[2016-10-08] MEDS: INSULIN DETEMIR 100 UNITS/ML MDV SQ SCH ×2 (06:41→21:47)
[2016-10-08] MEDS: INSULIN SLIDING SCALE (NOVOLOG) 1 VIAL SQ SCH ×4 (06:44→21:46)
--- NOTE | 2016-10-08 07:27 | PN ---
Progress Note, Physician - Current Medication List Current Medications: Active Medications Acetaminophen (Tylenol -) 650 mg PO Q6H PRN PRN Reason: FEVER OR PAIN Aspirin (Asa -) 81 mg PO DAILY [facility] Last Admin: 10/07/16 10:27 Dose: 81 mg Atorvastatin Calcium (Lipitor -) 40 mg PO HS [facility] Last Admin: 10/07/16 21:55 Dose: 40 mg Bicalutamide (Casodex -) 50 mg PO DAILY [facility] Last Admin: 10/07/16 10:27 Dose: 50 mg Docusate Sodium (Colace -) 300 mg PO HS [facility] Last Admin: 10/07/16 22:11 Dose: Not Given Fentanyl (Sublimaze Injection -) 50 mcg IVPUSH [id number] PRN PRN Reason: PAIN Stop: 10/09/16 08:32 Fluticasone Propionate (Flonase -) 2 spray NS DAILY [facility] Last Admin: 10/07/16 11:36 Dose: Not Given Heparin Sodium (Porcine) (Heparin -) 5,000 unit SQ BID [facility] Last Admin: 10/07/16 22:11 Dose: 5,000 unit Famotidine/Sodium Chloride (Pepcid 20 Mg Premixed Ivpb -) 50 mls @ 100 mls/hr IVPB BID [facility] Last Admin: 10/07/16 22:11 Dose: 100 mls/hr Vancomycin HCl 1,500 mg/ (Dextrose) 500 mls @ 250 mls/hr IVPB DAILY [facility] PRN Reason: Protocol Insulin Aspart (Novolog Vial Sliding Scale -) 1 vial SQ ACHS [facility] PRN Reason: Protocol Last Admin: 10/08/16 06:44 Dose: 5 units Insulin Detemir (Levemir Vial) 38 units SQ BID@0700,2200 [facility] Last Admin: 10/08/16 06:41 Dose: 38 unit Lisinopril (Prinivil) 5 mg PO DAILY [facility] Last Admin: 10/07/16 10:27 Dose: 5 mg Multivitamins/Minerals (Theragran-M) 1 each PO DAILY [facility] Last Admin: 10/07/16 10:27 Dose: 1 each Mupirocin (Bactroban 2% Ointment -) 1 applic TP BID [facility] Last Admin: 10/07/16 22:10 Dose: 1 applic Oxycodone HCl (Roxicodone -) 5 mg PO Q4H PRN PRN Reason: PAIN LEVEL 1-5 Sodium Hypochlorite (Dakin's Solution 0.25% (Half-Strength) -) 1 applic TP DAILY [facility] Last Admin: 10/07/16 11:00 Dose: 1 applic - Objective Vital Signs: Vital Signs Temperature 98.1 F 10/08/16 06:00 Pulse Rate 83 10/08/16 06:00 Respiratory Rate 18 10/08/16 06:00 Blood Pressure 117/71 10/08/16 06:00 O2 Sat by Pulse Oximetry (%) 93 L 10/07/16 21:00 Constitutional: Yes: Calm Neck: Yes: WNL Cardiovascular: Yes: WNL Respiratory: Yes: WNL Gastrointestinal: Yes: WNL Edema: No Wound/Incision: Yes: Dressing Dry and Intact Labs: CBC, BMP 10/07/16 07:15 10/07/16 07:15 Problem List - Problems (1) Cellulitis of left foot Code(s): L03.116 - CELLULITIS OF LEFT LOWER LIMB (2) Uncontrolled diabetes mellitus Code(s): E11.65 - TYPE 2 DIABETES MELLITUS WITH HYPERGLYCEMIA (3) Chronic kidney disease (CKD) Code(s): N18.9 - CHRONIC KIDNEY DISEASE, UNSPECIFIED (4) HTN (hypertension) Code(s): I10 - ESSENTIAL (PRIMARY) HYPERTENSION Qualifiers: Assessment/Plan The patient is a 56 year old male with a significant past medical history of diabetes mellitus, osteomyelitis, prostate CA (with radioactive seeds), who presents to the ER with left foot pain for four days. Patient localizes the pain to the heel region. On interview, patient states he developed redness in the left ankle. PCP: Dr. Darren Carr (1) Cellulitis of left foot Code(s): L03.116 - CELLULITIS OF LEFT LOWER LIMB IV ABx ID & PODI ON CASE ESR/CRP ELEVATED CARDIO FOR CLEARANCE APPRECIATED APPRECIATE PODI OP NOTE Operative Date: 10/06/16 Pre-Operative Diagnosis: L foot abscess and cellulitis Operation: L foot incision and drainage of abscess, debridement and lavage Findings: Large abscess medial arch, left foot Post-Operative Diagnosis: Same as Pre-op Surgeon: Antonio Byrd Anesthesiologist/SUPERVISOR ENGRAVING: Lesa Chase Anesthesia: Local, MAC Specimens Removed: abscess, left foot (2) Uncontrolled diabetes mellitus Code(s): E11.65 - TYPE 2 DIABETES MELLITUS WITH HYPERGLYCEMIA NUTRITION & ENDO CONSULTED BGM/ISS LEVEMIR IMPROVED (3) Chronic kidney disease (CKD) Code(s): N18.9 - CHRONIC KIDNEY DISEASE, UNSPECIFIED RENAL IMPROVED (4) HTN (hypertension) Code(s): I10 - ESSENTIAL (PRIMARY) HYPERTENSION Qualifiers: SQ HEPARIN F/U TROP -> 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
[2016-10-08 08:15] LABS: BASOPHIL 0.5 % (0-2.0); EOSINOPHIL 4.7 % (0-4.5); MCH 27.5 pg (25.7-33.7); MCHC 34.2 g/dl (32.0-35.9); MEAN CELL VOLUME 80.4 fl (80-96); MEAN PLT VOLUME 8.3 fl (7.5-11.1); NEUTROPHILS 77.1 % (42.8-82.8); PLATELET COUNT 275 K/MM3 (134-434); RDW 15.2 % (11.9-15.9); WHITE BLOOD COUNT 10.1 K/mm3 (4.0-10.0)
[2016-10-08 08:51] LABS: ALBUMIN 2.5 g/dl (3.4-5.0); ALK PHOS 151 U/L (45-117); ANION GAP 10 (8-16); BILIRUBIN,TOTAL 0.3 mg/dL (0.2-1.0); CALCIUM 8.5 mg/dL (8.5-10.1); CO2 25 mmol/L (21-32); CREATININE 1.2 mg/dL (0.7-1.3); GLUCOSE,RANDOM 144 mg/dL (74-106); SGOT/AST 33 U/L (15-37); SGPT/ALT 52 U/L (12-78); TOT PROT 6.7 g/dl (6.4-8.2)
--- NOTE | 2016-10-08 09:58 | PN ---
Progress Note (short form) - Note Progress Note: Podiatry: Seen and evaluated at bedside, NAD. Pain controlled, denies F/V/N/C/SOB/CP. S/ p L foot incision and drainage for sever DM abscess. Fevers broken. Currently afebrile, VSS. SMITHA: L foot: large post-surgical wound medial arch, retention sutures coapted proximally and distally. Central aspect of surgical site packed open. Exposed flexor tendon present. The tendon looks healthy and viable. Fibrogranular wound base. Surrounding erythema mildly improved. No purulence expressed from wound. No soft tissue crepitus. Moderate tenderness to palpation. WBC: 10.1, trending down OR Wound Cx: staph latex coag positive, preliminary Imp: 56 year old IDDM M s/p L foot incision and drainage of abscess 1. Dakin's irrigation and dakin's gauze applied to L foot 2. Continue wound care with bactroban R foot 3. IV abx per ID 4. F/u OR culture, still processing 5. Partial WB L foot with surgical shoe 6. Infection still resolving, improving well, still a bit erythematous 7. Needs home VAC and home nursing services 8. Will follow Lisa Byrd DPM
[2016-10-08] MEDS ORDERED: VANCOMYCIN 1,500 MG in DEXTROSE 5%-WATER - 500 ML IVPB SCH (10:00)
[2016-10-08] MEDS ORDERED: PT OWN MED DRAWER 7, Y5N ONE (10:26)
[2016-10-08] MEDS: LISINOPRIL 5 MG TABLET (FP) PO SCH (10:29)
[2016-10-08] MEDS: MULTIVITAMINS THER W-MINERALS COMBO TABLET (FP) PO SCH (10:29)
[2016-10-08] MEDS: BICALUTAMIDE 50 MG TABLET (FP) PO SCH (10:29)
[2016-10-08] MEDS: FAMOTIDINE 20 MG/50 ML IVPB 50 ML IVPB SCH ×2 (10:30→21:48)
[2016-10-08] MEDS: HEPARIN NA (PORCINE) 5,000 UNITS/ML 1ML VIAL SQ SCH ×2 (10:30→21:47)
[2016-10-08] MEDS: ASPIRIN 81 MG CHEWABLE TABLETS PO SCH (10:30)
[2016-10-08] MEDS: FLUTICASONE PROP 0.05% 16 GM NASAL SPRAY NS SCH (10:34)
[2016-10-08] MEDS: SODIUM HYPOCHLORITE 0.25%- 473 ML BULK BOTTLE TP SCH (10:35)
[2016-10-08] MEDS: MUPIROCIN 2% TOPICAL OINTMENT 22 GM TUBE TP SCH ×2 (10:36→21:47)
[2016-10-08] MEDS ORDERED: INSULIN (NOVOLOG) ASPART 100 UNITS/ML 10ML VIAL ONE ×3 (12:01→17:24)
--- NOTE | 2016-10-08 16:38 | PN ---
Progress Note, Physician History of Present Illness: Pt seen and examined at bedside. He is awake and alert. He denies fevers or chills. - Current Medication List Current Medications: Active Medications Acetaminophen (Tylenol -) 650 mg PO Q6H PRN PRN Reason: FEVER OR PAIN Aspirin (Asa -) 81 mg PO DAILY [facility] Last Admin: 10/08/16 10:30 Dose: 81 mg Atorvastatin Calcium (Lipitor -) 40 mg PO HS [facility] Last Admin: 10/07/16 21:55 Dose: 40 mg Bicalutamide (Casodex -) 50 mg PO DAILY [facility] Last Admin: 10/08/16 10:29 Dose: 50 mg Docusate Sodium (Colace -) 300 mg PO HS [facility] Last Admin: 10/07/16 22:11 Dose: Not Given Fentanyl (Sublimaze Injection -) 50 mcg IVPUSH [id number] PRN PRN Reason: PAIN Stop: 10/09/16 08:32 Fluticasone Propionate (Flonase -) 2 spray NS DAILY [facility] Last Admin: 10/08/16 10:34 Dose: Not Given Heparin Sodium (Porcine) (Heparin -) 5,000 unit SQ BID [facility] Last Admin: 10/08/16 10:30 Dose: 5,000 unit Famotidine/Sodium Chloride (Pepcid 20 Mg Premixed Ivpb -) 50 mls @ 100 mls/hr IVPB BID [facility] Last Admin: 10/08/16 10:30 Dose: 100 mls/hr Vancomycin HCl 1,500 mg/ (Sodium Chloride) 500 mls @ 250 mls/hr IVPB DAILY [facility] PRN Reason: Protocol Insulin Aspart (Novolog Vial Sliding Scale -) 1 vial SQ ACHS [facility] PRN Reason: Protocol Last Admin: 10/08/16 11:49 Dose: 3 units Insulin Detemir (Levemir Vial) 38 units SQ BID@0700,2200 [facility] Last Admin: 10/08/16 06:41 Dose: 38 unit Lisinopril (Prinivil) 5 mg PO DAILY [facility] Last Admin: 10/08/16 10:29 Dose: 5 mg Multivitamins/Minerals (Theragran-M) 1 each PO DAILY [facility] Last Admin: 10/08/16 10:29 Dose: 1 each Mupirocin (Bactroban 2% Ointment -) 1 applic TP BID [facility] Last Admin: 10/08/16 10:36 Dose: 1 applic Oxycodone HCl (Roxicodone -) 5 mg PO Q4H PRN PRN Reason: PAIN LEVEL 1-5 Sodium Hypochlorite (Dakin's Solution 0.25% (Half-Strength) -) 1 applic TP DAILY [facility] Last Admin: 10/08/16 10:35 Dose: 1 applic - Objective Vital Signs: Vital Signs Temperature 98.7 F 10/08/16 14:57 Pulse Rate 90 10/08/16 14:57 Respiratory Rate 16 10/08/16 14:57 Blood Pressure 120/72 10/08/16 14:57 O2 Sat by Pulse Oximetry (%) 95 10/08/16 09:00 Constitutional: Yes: Calm Eyes: Yes: Conjunctiva Clear HENT: Yes: Atraumatic Neck: Yes: Supple Cardiovascular: Yes: S1, S2 Respiratory: Yes: CTA Bilaterally Gastrointestinal: Yes: Normal Bowel Sounds, Soft Genitourinary: Yes: WNL Edema: No Wound/Incision: Yes: Dressing Dry and Intact Neurological: Yes: Oriented Psychiatric: Yes: Oriented Labs: CBC, BMP 10/08/16 06:30 10/08/16 06:30 Problem List - Problems (1) Cellulitis of left foot Code(s): L03.116 - CELLULITIS OF LEFT LOWER LIMB (2) Chronic kidney disease (CKD) Code(s): N18.9 - CHRONIC KIDNEY DISEASE, UNSPECIFIED (3) Diabetes 1.5, managed as type 2 Code(s): E13.9 - OTHER SPECIFIED DIABETES MELLITUS WITHOUT COMPLICATIONS (4) Fever Code(s): R50.9 - FEVER, UNSPECIFIED Assessment/Plan Current Medications Generic Name Dose Route Start Last Admin Trade Name Freq PRN Reason Stop Dose Admin Acetaminophen 650 mg 10/06/16 09:50 Tylenol - PO Q6H PRN FEVER OR PAIN Aspirin 81 mg 10/06/16 10:00 10/08/16 10:30 Asa - PO 81 mg DAILY [facility] Administration Atorvastatin Calcium 40 mg 10/06/16 22:00 10/07/16 21:55 Lipitor - PO 40 mg HS [facility] Administration Bicalutamide 50 mg 10/06/16 10:00 10/08/16 10:29 Casodex - PO 50 mg DAILY [facility] Administration Docusate Sodium 300 mg 10/06/16 22:00 10/07/16 22:11 Colace - PO Not Given HS [facility] Fentanyl 50 mcg 10/06/16 09:50 Sublimaze Injection - IVPUSH 10/09/16 08:32 [id number] PRN PAIN Fluticasone Propionate 2 spray 10/06/16 10:00 10/08/16 10:34 Flonase - NS Not Given DAILY [facility] Heparin Sodium (Porcine) 5,000 unit 10/06/16 10:00 10/08/16 10:30 Heparin - SQ 5,000 unit BID [facility] Administration Famotidine/Sodium Chloride 50 mls @ 100 mls/hr 10/07/16 10:00 10/08/16 10:30 Pepcid 20 Mg Premixed Ivpb - IVPB 100 mls/hr BID [facility] Administration Vancomycin HCl 1,500 mg/ 500 mls @ 250 mls/hr 10/09/16 10:00 Sodium Chloride IVPB DAILY [facility] Protocol Insulin Aspart 1 vial 10/06/16 11:00 10/08/16 11:49 Novolog Vial Sliding Scale - SQ 3 units ACHS [facility] Administration Protocol Insulin Detemir 38 units 10/06/16 22:00 10/08/16 06:41 Levemir Vial SQ 38 unit BID@0700,2200 [facility] Administration Lisinopril 5 mg 10/07/16 10:00 10/08/16 10:29 Prinivil PO 5 mg DAILY [facility] Administration Multivitamins/Minerals 1 each 10/06/16 10:00 10/08/16 10:29 Theragran-M PO 1 each DAILY [facility] Administration Mupirocin 1 applic 10/06/16 10:00 10/08/16 10:36 Bactroban 2% Ointment - TP 1 applic BID [facility] Administration Oxycodone HCl 5 mg 10/06/16 09:39 Roxicodone - PO Q4H PRN PAIN LEVEL 1-5 Sodium Hypochlorite 1 applic 10/06/16 10:00 10/08/16 10:35 Dakin's Solution 0.25% (Half-Strength) - TP 1 applic DAILY [facility] Administration Laboratory Tests 10/07/16 16:30 Protein/Creatinin Ratio 0.839 Impression 1. CKD 2. left heel ulcer and cellulitis 3. HTN 4. DM 5. proteinuria 6. hyperlipidemia Plan - BP is stable - cont lisinopril - will follow as outpt - will follow PRN Dr Walter
[2016-10-08] MEDS: DOCUSATE SODIUM 100 MG CAPSULE (FP) PO SCH (21:48)
[2016-10-08] MEDS: ATORVASTATIN CA 40 MG TABLET (FP) PO SCH (22:00)
[2016-10-09] MEDS: INSULIN SLIDING SCALE (NOVOLOG) 1 VIAL SQ SCH ×4 (06:44→22:09)
[2016-10-09] MEDS: INSULIN DETEMIR 100 UNITS/ML MDV SQ SCH ×2 (06:44→22:09)
[2016-10-09] MEDS ORDERED: INSULIN (NOVOLOG) ASPART 100 UNITS/ML 10ML VIAL ONE (07:08)
[2016-10-09 07:58] LABS: BASOPHIL 0.7 % (0-2.0); EOSINOPHIL 4.7 % (0-4.5); MCH 27.6 pg (25.7-33.7); MEAN CELL VOLUME 81.2 fl (80-96); NEUTROPHILS 76.3 % (42.8-82.8); PLATELET COUNT 352 K/MM3 (134-434); RDW 15.1 % (11.9-15.9)
[2016-10-09 08:05] LABS: ALBUMIN 2.5 g/dl (3.4-5.0); BILIRUBIN,TOTAL 0.5 mg/dL (0.2-1.0); CALCIUM 8.5 mg/dL (8.5-10.1); COCKROFT - GAULT 74.3; CREATININE 1.3 mg/dL (0.7-1.3); TOT PROT 6.9 g/dl (6.4-8.2)
[2016-10-09] MEDS: ASPIRIN 81 MG CHEWABLE TABLETS PO SCH (11:40)
[2016-10-09] MEDS: FAMOTIDINE 20 MG/50 ML IVPB 50 ML IVPB SCH ×2 (11:41→22:08)
[2016-10-09] MEDS: MULTIVITAMINS THER W-MINERALS COMBO TABLET (FP) PO SCH (11:41)
[2016-10-09] MEDS: LISINOPRIL 5 MG TABLET (FP) PO SCH (11:41)
[2016-10-09] MEDS: FLUTICASONE PROP 0.05% 16 GM NASAL SPRAY NS SCH (11:44)
[2016-10-09] MEDS ORDERED: PT OWN MED DRAWER 7, Y5N ONE (11:57)
[2016-10-09] MEDS: MUPIROCIN 2% TOPICAL OINTMENT 22 GM TUBE TP SCH ×2 (12:00→22:09)
[2016-10-09] MEDS: HEPARIN NA (PORCINE) 5,000 UNITS/ML 1ML VIAL SQ SCH ×2 (12:00→22:09)
[2016-10-09] MEDS: BICALUTAMIDE 50 MG TABLET (FP) PO SCH (12:00)
[2016-10-09] MEDS: SODIUM HYPOCHLORITE 0.25%- 473 ML BULK BOTTLE TP SCH (12:01)
--- NOTE | 2016-10-09 12:04 | PN ---
Progress Note, Physician History of Present Illness: NO COMPLAINTS - Current Medication List Current Medications: Active Medications Acetaminophen (Tylenol -) 650 mg PO Q6H PRN PRN Reason: FEVER OR PAIN Aspirin (Asa -) 81 mg PO DAILY [facility] Last Admin: 10/09/16 11:40 Dose: 81 mg Atorvastatin Calcium (Lipitor -) 40 mg PO HS [facility] Last Admin: 10/08/16 22:00 Dose: 40 mg Bicalutamide (Casodex -) 50 mg PO DAILY [facility] Last Admin: 10/09/16 12:00 Dose: 50 mg Docusate Sodium (Colace -) 300 mg PO HS [facility] Last Admin: 10/08/16 21:48 Dose: Not Given Fluticasone Propionate (Flonase -) 2 spray NS DAILY [facility] Last Admin: 10/09/16 11:44 Dose: Not Given Heparin Sodium (Porcine) (Heparin -) 5,000 unit SQ BID [facility] Last Admin: 10/09/16 12:00 Dose: 5,000 unit Famotidine/Sodium Chloride (Pepcid 20 Mg Premixed Ivpb -) 50 mls @ 100 mls/hr IVPB BID [facility] Last Admin: 10/09/16 11:41 Dose: 100 mls/hr Vancomycin HCl 1,500 mg/ (Sodium Chloride) 500 mls @ 250 mls/hr IVPB DAILY [facility] PRN Reason: Protocol Insulin Aspart (Novolog Vial Sliding Scale -) 1 vial SQ ACHS [facility] PRN Reason: Protocol Last Admin: 10/09/16 06:44 Dose: 5 units Insulin Detemir (Levemir Vial) 38 units SQ BID@0700,2200 [facility] Last Admin: 10/09/16 06:44 Dose: 38 unit Lisinopril (Prinivil) 5 mg PO DAILY [facility] Last Admin: 10/09/16 11:41 Dose: Not Given Multivitamins/Minerals (Theragran-M) 1 each PO DAILY [facility] Last Admin: 10/09/16 11:41 Dose: 1 each Mupirocin (Bactroban 2% Ointment -) 1 applic TP BID [facility] Last Admin: 10/09/16 12:00 Dose: 1 applic Sodium Hypochlorite (Dakin's Solution 0.25% (Half-Strength) -) 1 applic TP DAILY [facility] Last Admin: 10/09/16 12:01 Dose: 1 applic - Objective Vital Signs: Vital Signs Temperature 98.6 F 10/09/16 07:38 Pulse Rate 84 10/09/16 07:38 Respiratory Rate 20 10/09/16 07:38 Blood Pressure 110/74 10/09/16 07:38 O2 Sat by Pulse Oximetry (%) 95 10/08/16 09:00 Cardiovascular: Yes: Regular Rate and Rhythm Respiratory: Yes: Regular, CTA Bilaterally Gastrointestinal: Yes: Normal Bowel Sounds, Soft Wound/Incision: Yes: Dressing Dry and Intact Labs: CBC, BMP 10/09/16 06:00 10/09/16 06:00 Problem List - Problems (1) Uncontrolled diabetes mellitus Assessment/Plan: BGM COVERAGE Code(s): E11.65 - TYPE 2 DIABETES MELLITUS WITH HYPERGLYCEMIA (2) Abscess of plantar aspect of foot Assessment/Plan: IV ABX WOUND CARE Code(s): L02.619 - CUTANEOUS ABSCESS OF UNSPECIFIED FOOT
[2016-10-09] MEDS: VANCOMYCIN 1,500 MG in SODIUM CHLORIDE 500 ML IVPB SCH (13:17)
--- NOTE | 2016-10-09 14:15 | PN ---
Progress Note (short form) - Note Progress Note: Podiatry: Seen/evaluated at bedside, NAD. Denies F/V/N/C/SOB/Cp. S/p L foot incision and drainage for severe DFI. AFebrile, VSS. SMITHA: L foot: dressing C/D/I, no active bleeding. Sutures coapted proximally and distally, post-surgical wound packed open. Mixed fibrogranular wound base with exposed tendon. No purulence, no fluctuance, no streaking cellulitis, no soft tissue crepitus. Surrounding erythema mildly improved. WBC: 11.0 Wound Cx: MRSA Imp: 56 year old IDDM M s/p L foot incision and drainage for MRSA abscess 1. IV abx per ID 2. Dakin's irrigation and dakin's gauze dressing 3. For wound VAC and home nursing services 4. Monitor infection. So far clinically improved 5. Upon discharge, will f/u with me in [facility]. Guarded prognosis for limb salvage , which I have discussed at length with patient. Lisa Byrd DPM
[2016-10-09] MEDS: ATORVASTATIN CA 40 MG TABLET (FP) PO SCH (22:08)
[2016-10-09] MEDS: DOCUSATE SODIUM 100 MG CAPSULE (FP) PO SCH ×2 (22:08→22:13)
[2016-10-10] MEDS: INSULIN DETEMIR 100 UNITS/ML MDV SQ SCH ×2 (06:48→21:40)
[2016-10-10] MEDS: INSULIN SLIDING SCALE (NOVOLOG) 1 VIAL SQ SCH ×4 (06:48→21:41)
--- NOTE | 2016-10-10 08:51 | PN ---
Progress Note, Physician History of Present Illness: NO COMPLAINTS - Current Medication List Current Medications: Active Medications Acetaminophen (Tylenol -) 650 mg PO Q6H PRN PRN Reason: FEVER OR PAIN Aspirin (Asa -) 81 mg PO DAILY [facility] Last Admin: 10/09/16 11:40 Dose: 81 mg Atorvastatin Calcium (Lipitor -) 40 mg PO HS [facility] Last Admin: 10/09/16 22:08 Dose: 40 mg Bicalutamide (Casodex -) 50 mg PO DAILY [facility] Last Admin: 10/09/16 12:00 Dose: 50 mg Docusate Sodium (Colace -) 300 mg PO HS [facility] Last Admin: 10/09/16 22:13 Dose: Not Given Fluticasone Propionate (Flonase -) 2 spray NS DAILY [facility] Last Admin: 10/09/16 11:44 Dose: Not Given Heparin Sodium (Porcine) (Heparin -) 5,000 unit SQ BID [facility] Last Admin: 10/09/16 22:09 Dose: 5,000 unit Famotidine/Sodium Chloride (Pepcid 20 Mg Premixed Ivpb -) 50 mls @ 100 mls/hr IVPB BID [facility] Last Admin: 10/09/16 22:08 Dose: 100 mls/hr Vancomycin HCl 1,500 mg/ (Sodium Chloride) 500 mls @ 250 mls/hr IVPB DAILY [facility] PRN Reason: Protocol Last Admin: 10/09/16 13:17 Dose: 250 mls/hr Insulin Aspart (Novolog Vial Sliding Scale -) 1 vial SQ ACHS [facility] PRN Reason: Protocol Last Admin: 10/10/16 06:48 Dose: 3 units Insulin Detemir (Levemir Vial) 38 units SQ BID@0700,2200 [facility] Last Admin: 10/10/16 06:48 Dose: 38 unit Lisinopril (Prinivil) 5 mg PO DAILY [facility] Last Admin: 10/09/16 11:41 Dose: Not Given Multivitamins/Minerals (Theragran-M) 1 each PO DAILY [facility] Last Admin: 10/09/16 11:41 Dose: 1 each Mupirocin (Bactroban 2% Ointment -) 1 applic TP BID [facility] Last Admin: 10/09/16 22:09 Dose: 1 applic Sodium Hypochlorite (Dakin's Solution 0.25% (Half-Strength) -) 1 applic TP DAILY [facility] Last Admin: 10/09/16 12:01 Dose: 1 applic - Objective Vital Signs: Vital Signs Temperature 98 F 10/09/16 22:00 Pulse Rate 80 10/09/16 22:00 Respiratory Rate 18 10/09/16 22:00 Blood Pressure 105/64 10/09/16 22:00 O2 Sat by Pulse Oximetry (%) 95 10/09/16 22:00 Cardiovascular: Yes: Regular Rate and Rhythm Respiratory: Yes: Regular, CTA Bilaterally Gastrointestinal: Yes: Normal Bowel Sounds, Soft Wound/Incision: Yes: Dressing Dry and Intact Labs: CBC, BMP 10/09/16 06:00 10/09/16 06:00 Problem List - Problems (1) Uncontrolled diabetes mellitus Assessment/Plan: BGM COVERAGE Code(s): E11.65 - TYPE 2 DIABETES MELLITUS WITH HYPERGLYCEMIA (2) Abscess of plantar aspect of foot Assessment/Plan: IV ABX WOUND CARE PER PODIATRY Code(s): L02.619 - CUTANEOUS ABSCESS OF UNSPECIFIED FOOT
[2016-10-10] MEDS: SODIUM HYPOCHLORITE 0.25%- 473 ML BULK BOTTLE TP SCH (11:04)
[2016-10-10] MEDS: MUPIROCIN 2% TOPICAL OINTMENT 22 GM TUBE TP SCH ×2 (11:04→21:41)
[2016-10-10] MEDS: HEPARIN NA (PORCINE) 5,000 UNITS/ML 1ML VIAL SQ SCH ×2 (11:04→21:41)
[2016-10-10] MEDS: ASPIRIN 81 MG CHEWABLE TABLETS PO SCH (11:04)
[2016-10-10] MEDS: LISINOPRIL 5 MG TABLET (FP) PO SCH (11:04)
[2016-10-10] MEDS: FLUTICASONE PROP 0.05% 16 GM NASAL SPRAY NS SCH (11:05)
[2016-10-10] MEDS ORDERED: PT OWN MED DRAWER 7, Y5N ONE (11:07)
[2016-10-10] MEDS: BICALUTAMIDE 50 MG TABLET (FP) PO SCH (11:08)
[2016-10-10] MEDS: MULTIVITAMINS THER W-MINERALS COMBO TABLET (FP) PO SCH (12:47)
[2016-10-10] MEDS: FAMOTIDINE 20 MG/50 ML IVPB 50 ML IVPB SCH (12:48)
[2016-10-10] MEDS: VANCOMYCIN 1,500 MG in SODIUM CHLORIDE 500 ML IVPB SCH (14:01)
--- NOTE | 2016-10-10 15:05 | PN ---
Progress Note, Physician History of Present Illness: Pt seen and examined at bedside. He is awake and alert. - Current Medication List Current Medications: Active Medications Acetaminophen (Tylenol -) 650 mg PO Q6H PRN PRN Reason: FEVER OR PAIN Aspirin (Asa -) 81 mg PO DAILY [facility] Last Admin: 10/10/16 11:04 Dose: 81 mg Atorvastatin Calcium (Lipitor -) 40 mg PO HS [facility] Last Admin: 10/09/16 22:08 Dose: 40 mg Bicalutamide (Casodex -) 50 mg PO DAILY [facility] Last Admin: 10/10/16 11:08 Dose: 50 mg Docusate Sodium (Colace -) 300 mg PO HS [facility] Last Admin: 10/09/16 22:13 Dose: Not Given Fluticasone Propionate (Flonase -) 2 spray NS DAILY [facility] Last Admin: 10/10/16 11:05 Dose: Not Given Heparin Sodium (Porcine) (Heparin -) 5,000 unit SQ BID [facility] Last Admin: 10/10/16 11:04 Dose: 5,000 unit Vancomycin HCl 1,500 mg/ (Sodium Chloride) 500 mls @ 250 mls/hr IVPB DAILY [facility] PRN Reason: Protocol Last Admin: 10/10/16 14:01 Dose: 250 mls/hr Insulin Aspart (Novolog Vial Sliding Scale -) 1 vial SQ ACHS [facility] PRN Reason: Protocol Last Admin: 10/10/16 12:47 Dose: 6 units Insulin Detemir (Levemir Vial) 38 units SQ BID@0700,2200 [facility] Last Admin: 10/10/16 06:48 Dose: 38 unit Lisinopril (Prinivil) 5 mg PO DAILY [facility] Last Admin: 10/10/16 11:04 Dose: 5 mg Multivitamins/Minerals (Theragran-M) 1 each PO DAILY [facility] Last Admin: 10/10/16 12:47 Dose: 1 each Mupirocin (Bactroban 2% Ointment -) 1 applic TP BID [facility] Last Admin: 10/10/16 11:04 Dose: 1 applic Ranitidine HCl (Zantac -) 150 mg PO BID [facility] Sodium Hypochlorite (Dakin's Solution 0.25% (Half-Strength) -) 1 applic TP DAILY [facility] Last Admin: 10/10/16 11:04 Dose: 1 applic - Objective Vital Signs: Vital Signs Temperature 98 F 04/15/17 22:00 Pulse Rate 80 10/09/16 22:00 Respiratory Rate 18 10/09/16 22:00 Blood Pressure 105/64 10/09/16 22:00 O2 Sat by Pulse Oximetry (%) 95 10/09/16 22:00 Constitutional: Yes: Calm Eyes: Yes: Conjunctiva Clear HENT: Yes: Atraumatic Neck: Yes: Supple Cardiovascular: Yes: S1, S2 Respiratory: Yes: CTA Bilaterally Gastrointestinal: Yes: Soft Genitourinary: Yes: WNL Edema: No Wound/Incision: Yes: Dressing Dry and Intact Neurological: Yes: Oriented Psychiatric: Yes: Oriented Labs: CBC, BMP 10/09/16 06:00 10/09/16 06:00 Problem List - Problems (1) Cellulitis of left foot Code(s): L03.116 - CELLULITIS OF LEFT LOWER LIMB (2) Chronic kidney disease (CKD) Code(s): N18.9 - CHRONIC KIDNEY DISEASE, UNSPECIFIED (3) Diabetes 1.5, managed as type 2 Code(s): E13.9 - OTHER SPECIFIED DIABETES MELLITUS WITHOUT COMPLICATIONS (4) Fever Code(s): R50.9 - FEVER, UNSPECIFIED Assessment/Plan Current Medications Generic Name Dose Route Start Last Admin Trade Name Freq PRN Reason Stop Dose Admin Acetaminophen 650 mg 10/06/16 09:50 Tylenol - PO Q6H PRN FEVER OR PAIN Aspirin 81 mg 10/06/16 10:00 10/10/16 11:04 Asa - PO 81 mg DAILY [facility] Administration Atorvastatin Calcium 40 mg 10/06/16 22:00 10/09/16 22:08 Lipitor - PO 40 mg HS [facility] Administration Bicalutamide 50 mg 10/06/16 10:00 10/10/16 11:08 Casodex - PO 50 mg DAILY [facility] Administration Docusate Sodium 300 mg 10/06/16 22:00 10/09/16 22:13 Colace - PO Not Given HS [facility] Fluticasone Propionate 2 spray 10/06/16 10:00 10/10/16 11:05 Flonase - NS Not Given DAILY [facility] Heparin Sodium (Porcine) 5,000 unit 10/06/16 10:00 10/10/16 11:04 Heparin - SQ 5,000 unit BID [facility] Administration Vancomycin HCl 1,500 mg/ 500 mls @ 250 mls/hr 10/09/16 10:00 10/10/16 14:01 Sodium Chloride IVPB 250 mls/hr DAILY [facility] Administration Protocol Insulin Aspart 1 vial 10/06/16 11:00 10/10/16 12:47 Novolog Vial Sliding Scale - SQ 6 units ACHS [facility] Administration Protocol Insulin Detemir 38 units 10/06/16 22:00 10/10/16 06:48 Levemir Vial SQ 38 unit BID@0700,2200 [facility] Administration Lisinopril 5 mg 10/07/16 10:00 10/10/16 11:04 Prinivil PO 5 mg DAILY [facility] Administration Multivitamins/Minerals 1 each 10/06/16 10:00 10/10/16 12:47 Theragran-M PO 1 each DAILY [facility] Administration Mupirocin 1 applic 10/06/16 10:00 10/10/16 11:04 Bactroban 2% Ointment - TP 1 applic BID [facility] Administration Ranitidine HCl 150 mg 10/10/16 22:00 Zantac - PO BID [facility] Sodium Hypochlorite 1 applic 10/06/16 10:00 10/10/16 11:04 Dakin's Solution 0.25% (Half-Strength) - TP 1 applic DAILY [facility] Administration Impression 1. CKD 2. left heel ulcer and cellulitis 3. HTN 4. DM 5. proteinuria 6. hyperlipidemia Plan - cont with lisinopril - will order bmp for am to evaluate creatinine and potassium - bp is stable - will follow PRN Dr Walter
[2016-10-10] MEDS: ATORVASTATIN CA 40 MG TABLET (FP) PO SCH (21:40)
[2016-10-10] MEDS: RANITIDINE HCL 150 MG TABLET (FP) PO SCH (21:40)
[2016-10-10] MEDS: DOCUSATE SODIUM 100 MG CAPSULE (FP) PO SCH (21:44)
[2016-10-11] MEDS: INSULIN DETEMIR 100 UNITS/ML MDV SQ SCH ×2 (06:05→22:09)
[2016-10-11] MEDS: INSULIN SLIDING SCALE (NOVOLOG) 1 VIAL SQ SCH ×4 (06:06→22:10)
--- NOTE | 2016-10-11 06:57 | PN ---
Progress Note, Physician Chief Complaint: no complaints - Current Medication List Current Medications: Active Medications Acetaminophen (Tylenol -) 650 mg PO Q6H PRN PRN Reason: FEVER OR PAIN Aspirin (Asa -) 81 mg PO DAILY [facility] Last Admin: 10/10/16 11:04 Dose: 81 mg Atorvastatin Calcium (Lipitor -) 40 mg PO HS [facility] Last Admin: 10/10/16 21:40 Dose: 40 mg Bicalutamide (Casodex -) 50 mg PO DAILY [facility] Last Admin: 10/10/16 11:08 Dose: 50 mg Docusate Sodium (Colace -) 300 mg PO HS [facility] Last Admin: 10/10/16 21:44 Dose: Not Given Fluticasone Propionate (Flonase -) 2 spray NS DAILY [facility] Last Admin: 10/10/16 11:05 Dose: Not Given Heparin Sodium (Porcine) (Heparin -) 5,000 unit SQ BID [facility] Last Admin: 10/10/16 21:41 Dose: 5,000 unit Vancomycin HCl 1,500 mg/ (Sodium Chloride) 500 mls @ 250 mls/hr IVPB DAILY [facility] PRN Reason: Protocol Last Admin: 10/10/16 14:01 Dose: 250 mls/hr Insulin Aspart (Novolog Vial Sliding Scale -) 1 vial SQ ACHS [facility] PRN Reason: Protocol Last Admin: 10/11/16 06:06 Dose: 3 units Insulin Detemir (Levemir Vial) 38 units SQ BID@0700,2200 [facility] Last Admin: 10/11/16 06:05 Dose: 38 unit Lisinopril (Prinivil) 5 mg PO DAILY [facility] Last Admin: 10/10/16 11:04 Dose: 5 mg Multivitamins/Minerals (Theragran-M) 1 each PO DAILY [facility] Last Admin: 10/10/16 12:47 Dose: 1 each Mupirocin (Bactroban 2% Ointment -) 1 applic TP BID [facility] Last Admin: 10/10/16 21:41 Dose: 1 applic Ranitidine HCl (Zantac -) 150 mg PO BID [facility] Last Admin: 10/10/16 21:40 Dose: 150 mg Sodium Hypochlorite (Dakin's Solution 0.25% (Half-Strength) -) 1 applic TP DAILY [facility] Last Admin: 10/10/16 11:04 Dose: 1 applic - Objective Vital Signs: Vital Signs Temperature 97.7 F 10/11/16 06:00 Pulse Rate 85 10/11/16 06:00 Respiratory Rate 20 10/11/16 06:00 Blood Pressure 112/73 10/11/16 06:00 O2 Sat by Pulse Oximetry (%) 95 10/10/16 21:00 Neck: Yes: WNL Cardiovascular: Yes: WNL Respiratory: Yes: WNL Gastrointestinal: Yes: WNL Edema: No Wound/Incision: Yes: Dressing Dry and Intact Labs: CBC, BMP 10/09/16 06:00 10/09/16 06:00 Problem List - Problems (1) Cellulitis of left foot Code(s): L03.116 - CELLULITIS OF LEFT LOWER LIMB (2) Uncontrolled diabetes mellitus Code(s): E11.65 - TYPE 2 DIABETES MELLITUS WITH HYPERGLYCEMIA (3) Chronic kidney disease (CKD) Code(s): N18.9 - CHRONIC KIDNEY DISEASE, UNSPECIFIED (4) HTN (hypertension) Code(s): I10 - ESSENTIAL (PRIMARY) HYPERTENSION Qualifiers: Assessment/Plan The patient is a 56 year old male with a significant past medical history of diabetes mellitus, osteomyelitis, prostate CA (with radioactive seeds), who presents to the ER with left foot pain for four days. Patient localizes the pain to the heel region. On interview, patient states he developed redness in the left ankle. PCP: Dr. Darren Carr (1) Uncontrolled diabetes mellitus Assessment/Plan: BGM COVERAGE ENDO ON CASE Code(s): E11.65 - TYPE 2 DIABETES MELLITUS WITH HYPERGLYCEMIA (2) Abscess of plantar aspect of foot Assessment/Plan: IV VANCO WOUND CARE PER PODIATRY UCx & WCx +bear MRSA Code(s): L02.619 - CUTANEOUS ABSCESS OF UNSPECIFIED FOOT DISCHARGE [employer]ING [employer]
[2016-10-11 07:41] LABS: MCH 26.9 pg (25.7-33.7); MEAN CELL VOLUME 81.6 fl (80-96); MEAN PLT VOLUME 7.7 fl (7.5-11.1); PLATELET COUNT 453 K/MM3 (134-434); RDW 15.3 % (11.9-15.9); WHITE BLOOD COUNT 12.1 K/mm3 (4.0-10.0)
[2016-10-11 08:10] LABS: COCKROFT - GAULT 87.82; CREATININE 1.1 mg/dL (0.7-1.3)
--- NOTE | 2016-10-11 10:33 | PN ---
Progress Note (short form) - Note Progress Note: Podiatry: Seen and evaluated at bedside, NAD. Pain controlled, denies F/V/N/C/SOB/CP. S/ p L foot incision and drainage of severe DM infection and abscess. Afebrile, VSS. SMITHA: L foot: post-surgical wound central medial arch with mixed fibrogranular base, exposed flexor tendons, some slough, no deep purulence, no fluctuance, no streaking cellulitis, no soft tissue crepitus, no signs of active infection. Erythema, swelling improving. WBC: 12.1 Wound Cx: MRSA Imp: 56 year old IDDM M s/p L foot incision and drainage 1. IV abx per ID. Will likely need senior care Abx therapy. 2. Dakin's gauze + DSD L foot 3. Home nursing services for wound VAC. Wound VAC set at 125 mmHg continuous with medium black granufoam dressing changed every third day. 4. Upon discharge, will f/u with me on Tuesdays at [facility]. Lisa Byrd DPM
[2016-10-11] MEDS: ASPIRIN 81 MG CHEWABLE TABLETS PO SCH (10:43)
[2016-10-11] MEDS: LISINOPRIL 5 MG TABLET (FP) PO SCH (10:44)
[2016-10-11] MEDS: RANITIDINE HCL 150 MG TABLET (FP) PO SCH ×2 (10:44→22:09)
[2016-10-11] MEDS: MULTIVITAMINS THER W-MINERALS COMBO TABLET (FP) PO SCH (10:44)
[2016-10-11] MEDS: BICALUTAMIDE 50 MG TABLET (FP) PO SCH (10:44)
[2016-10-11] MEDS: SODIUM HYPOCHLORITE 0.25%- 473 ML BULK BOTTLE TP SCH (10:44)
[2016-10-11] MEDS: HEPARIN NA (PORCINE) 5,000 UNITS/ML 1ML VIAL SQ SCH ×2 (10:44→22:09)
[2016-10-11] MEDS: FLUTICASONE PROP 0.05% 16 GM NASAL SPRAY NS SCH (10:45)
[2016-10-11] MEDS: VANCOMYCIN 1,500 MG in SODIUM CHLORIDE 500 ML IVPB SCH (10:45)
[2016-10-11] MEDS: MUPIROCIN 2% TOPICAL OINTMENT 22 GM TUBE TP SCH ×2 (10:45→22:07)
--- NOTE | 2016-10-11 11:09 | PN ---
Progress Note, Physician History of Present Illness: Awake, alert No c/o foot pain Afebrile WBC mildly elevated Wound c/s MRSA - Current Medication List Current Medications: Active Medications Acetaminophen (Tylenol -) 650 mg PO Q6H PRN PRN Reason: FEVER OR PAIN Aspirin (Asa -) 81 mg PO DAILY [facility] Last Admin: 10/11/16 10:43 Dose: 81 mg Atorvastatin Calcium (Lipitor -) 40 mg PO HS [facility] Last Admin: 10/10/16 21:40 Dose: 40 mg Bicalutamide (Casodex -) 50 mg PO DAILY [facility] Last Admin: 10/11/16 10:44 Dose: 50 mg Docusate Sodium (Colace -) 300 mg PO HS [facility] Last Admin: 10/10/16 21:44 Dose: Not Given Fluticasone Propionate (Flonase -) 2 spray NS DAILY [facility] Last Admin: 10/11/16 10:45 Dose: Not Given Heparin Sodium (Porcine) (Heparin -) 5,000 unit SQ BID [facility] Last Admin: 10/11/16 10:44 Dose: 5,000 unit Vancomycin HCl 1,500 mg/ (Sodium Chloride) 500 mls @ 250 mls/hr IVPB DAILY [facility] PRN Reason: Protocol Last Admin: 10/11/16 10:45 Dose: 250 mls/hr Insulin Aspart (Novolog Vial Sliding Scale -) 1 vial SQ ACHS [facility] PRN Reason: Protocol Last Admin: 10/11/16 06:06 Dose: 3 units Insulin Detemir (Levemir Vial) 38 units SQ BID@0700,2200 [facility] Last Admin: 10/11/16 06:05 Dose: 38 unit Lisinopril (Prinivil) 5 mg PO DAILY [facility] Last Admin: 10/11/16 10:44 Dose: 5 mg Multivitamins/Minerals (Theragran-M) 1 each PO DAILY [facility] Last Admin: 10/11/16 10:44 Dose: 1 each Mupirocin (Bactroban 2% Ointment -) 1 applic TP BID [facility] Last Admin: 10/11/16 10:45 Dose: 1 applic Ranitidine HCl (Zantac -) 150 mg PO BID [facility] Last Admin: 10/11/16 10:44 Dose: 150 mg Sodium Hypochlorite (Dakin's Solution 0.25% (Half-Strength) -) 1 applic TP DAILY [facility] Last Admin: 10/11/16 10:44 Dose: 1 applic - Objective Vital Signs: Vital Signs Temperature 97.7 F 10/11/16 06:00 Pulse Rate 85 10/11/16 06:00 Respiratory Rate 20 10/11/16 06:00 Blood Pressure 112/73 10/11/16 06:00 O2 Sat by Pulse Oximetry (%) 95 10/10/16 21:00 Constitutional: Yes: No Distress Eyes: Yes: Conjunctiva Clear Cardiovascular: Yes: Regular Rate and Rhythm, S1, S2 Respiratory: Yes: CTA Bilaterally Gastrointestinal: Yes: Normal Bowel Sounds, Soft. No: Tenderness Extremities: Yes: Other (foot wound packed no purulence noted erythema resolved) Labs: CBC, BMP 10/11/16 06:25 10/11/16 06:25 Assessment/Plan Cellulitis L foot resolved S/P I&D L foot abscess + wound c/s MRSA Azotemia Diabetes mellitus Continue vancomycin Discussed with Dr Byrd Will continue vancomycin via PICC as outpatient
[2016-10-11] MEDS ORDERED: PT OWN MED DRAWER 7, Y5N ONE (13:08)
[2016-10-11 14:27] LABS: PLATELET ESTIMATE ADEQUATE (NORMAL)
[2016-10-11] MEDS ORDERED: INSULIN (NOVOLOG) ASPART 100 UNITS/ML 10ML VIAL ONE ×2 (17:57→22:09)
[2016-10-11] MEDS: DOCUSATE SODIUM 100 MG CAPSULE (FP) PO SCH (22:08)
[2016-10-11] MEDS: ATORVASTATIN CA 40 MG TABLET (FP) PO SCH (22:09)
[2016-10-12] MEDS: INSULIN DETEMIR 100 UNITS/ML MDV SQ SCH ×2 (06:20→21:59)
[2016-10-12] MEDS: INSULIN SLIDING SCALE (NOVOLOG) 1 VIAL SQ SCH ×4 (06:21→22:00)
[2016-10-12 08:08] LABS: MCH 26.8 pg (25.7-33.7); MCHC 33.1 g/dl (32.0-35.9); MEAN PLT VOLUME 7.3 fl (7.5-11.1); PLATELET COUNT 472 K/MM3 (134-434); RDW 15.5 % (11.9-15.9); WHITE BLOOD COUNT 11.5 K/mm3 (4.0-10.0)
[2016-10-12 08:15] LABS: ALBUMIN 2.7 g/dl (3.4-5.0); ALK PHOS 139 U/L (45-117); ANION GAP 8 (8-16); BILIRUBIN,TOTAL 0.3 mg/dL (0.2-1.0); CO2 29 mmol/L (21-32); CREATININE 1.2 mg/dL (0.7-1.3); GLUCOSE,RANDOM 119 mg/dL (74-106); SGOT/AST 23 U/L (15-37); SGPT/ALT 43 U/L (12-78); TOT PROT 7.1 g/dl (6.4-8.2)
--- NOTE | 2016-10-12 09:05 | PN ---
Progress Note (short form) - Note Progress Note: Podiatry: Seen and evaluated at bedside, NAD. Pain controlled, denies F/V/N/C/SOB/CP. S/ p L foot incision and drainage of abscess for severe DM infection. Afebrile, VSS. SMITHA: L foot: medial arch post-surgical wound measuring 3 cm x 4 cm x 1.5 cm, mixed fibrogranular base, some serous drainage, no purulence, no fluctuance, no ascending cellulitis, no soft tissue crepitus, no signs of acute infection. Surrounding erythema improved. Minimal tenderness to palpation. WBC: 11.5 Wound Cx: MRSA Imp: 56 year old IDDM M s/p L foot incision and drainage of abscess 1. Discussed with ID yesterday, PICC line and IV abx for another 2-3 weeks due to severity of infection. 2. Home Wound VAC at 125 mmHg continuous applied to L foot every third day. Home nursing services for VAC care and IV abx. 3. Patient was instructed to apply saline moist to dry dressing if nursing staff does not come immediately. 4. Glycemic control. Minimize WB activity. 5. F/u 1 week in [facility]. [phone]. Lisa Byrd DPM
[2016-10-12 09:44] LABS: PLATELET ESTIMATE SLT INCREASED (NORMAL)
[2016-10-12] MEDS ORDERED: PT OWN MED DRAWER 7, Y5N ONE (10:18)
[2016-10-12] MEDS: ASPIRIN 81 MG CHEWABLE TABLETS PO SCH (10:22)
[2016-10-12] MEDS: MULTIVITAMINS THER W-MINERALS COMBO TABLET (FP) PO SCH (10:22)
[2016-10-12] MEDS: BICALUTAMIDE 50 MG TABLET (FP) PO SCH (10:22)
[2016-10-12] MEDS: RANITIDINE HCL 150 MG TABLET (FP) PO SCH ×2 (10:23→22:00)
[2016-10-12] MEDS: HEPARIN NA (PORCINE) 5,000 UNITS/ML 1ML VIAL SQ SCH ×2 (10:23→21:59)
[2016-10-12] MEDS: FLUTICASONE PROP 0.05% 16 GM NASAL SPRAY NS SCH (10:23)
[2016-10-12] MEDS: LISINOPRIL 5 MG TABLET (FP) PO SCH (10:23)
[2016-10-12] MEDS: VANCOMYCIN 1,500 MG in SODIUM CHLORIDE 500 ML IVPB SCH (10:24)
[2016-10-12] MEDS: MUPIROCIN 2% TOPICAL OINTMENT 22 GM TUBE TP SCH ×2 (10:24→21:58)
[2016-10-12] MEDS: SODIUM HYPOCHLORITE 0.25%- 473 ML BULK BOTTLE TP SCH (10:24)
[2016-10-12] MEDS ORDERED: INSULIN (NOVOLOG) ASPART 100 UNITS/ML 10ML VIAL ONE ×2 (11:43→20:59)
[2016-10-12] MEDS ORDERED: PICC LINE 8 ML FLUSH PROTOCOL IVPUSH PRN (16:13)
[2016-10-12] MEDS: DOCUSATE SODIUM 100 MG CAPSULE (FP) PO SCH (21:58)
[2016-10-12] MEDS: ATORVASTATIN CA 40 MG TABLET (FP) PO SCH (22:00)
--- NOTE | 2016-10-12 22:19 | PN ---
Progress Note, Physician Chief Complaint: AWAKE ALERT COMFORTABLE - Current Medication List Current Medications: Active Medications Acetaminophen (Tylenol -) 650 mg PO Q6H PRN PRN Reason: FEVER OR PAIN Aspirin (Asa -) 81 mg PO DAILY [facility] Last Admin: 10/12/16 10:22 Dose: 81 mg Atorvastatin Calcium (Lipitor -) 40 mg PO HS [facility] Last Admin: 10/12/16 22:00 Dose: 40 mg Bicalutamide (Casodex -) 50 mg PO DAILY [facility] Last Admin: 10/12/16 10:22 Dose: 50 mg Docusate Sodium (Colace -) 300 mg PO HS [facility] Last Admin: 10/12/16 21:58 Dose: 300 mg Fluticasone Propionate (Flonase -) 2 spray NS DAILY [facility] Last Admin: 10/12/16 10:23 Dose: Not Given Heparin Sodium (Porcine) (Heparin -) 5,000 unit SQ BID [facility] Last Admin: 10/12/16 21:59 Dose: 5,000 unit IV Flush (Picc Line Flush) 8 ml IVPUSH PRN PRN PRN Reason: Protocol Vancomycin HCl 1,500 mg/ (Sodium Chloride) 500 mls @ 250 mls/hr IVPB DAILY [facility] PRN Reason: Protocol Last Admin: 10/12/16 10:24 Dose: 250 mls/hr Insulin Aspart (Novolog Vial Sliding Scale -) 1 vial SQ ACHS [facility] PRN Reason: Protocol Last Admin: 10/12/16 22:00 Dose: 6 units Insulin Detemir (Levemir Vial) 38 units SQ BID@0700,2200 [facility] Last Admin: 10/12/16 21:59 Dose: 38 unit Lisinopril (Prinivil) 5 mg PO DAILY [facility] Last Admin: 10/12/16 10:23 Dose: 5 mg Multivitamins/Minerals (Theragran-M) 1 each PO DAILY [facility] Last Admin: 10/12/16 10:22 Dose: 1 each Mupirocin (Bactroban 2% Ointment -) 1 applic TP BID [facility] Last Admin: 10/12/16 21:58 Dose: Not Given Ranitidine HCl (Zantac -) 150 mg PO BID [facility] Last Admin: 10/12/16 22:00 Dose: 150 mg Sodium Hypochlorite (Dakin's Solution 0.25% (Half-Strength) -) 1 applic TP DAILY [facility] Last Admin: 10/12/16 10:24 Dose: 1 applic - Objective Vital Signs: Vital Signs Temperature 98.2 F 10/12/16 18:36 Pulse Rate 87 10/12/16 18:36 Respiratory Rate 20 10/12/16 18:36 Blood Pressure 123/76 10/12/16 18:36 O2 Sat by Pulse Oximetry (%) 98 10/12/16 09:00 Constitutional: Yes: Mild Distress Eyes: Yes: WNL HENT: Yes: WNL Neck: Yes: WNL Cardiovascular: Yes: WNL Respiratory: Yes: WNL Gastrointestinal: Yes: WNL Genitourinary: Yes: WNL Musculoskeletal: Yes: Muscle Weakness Extremities: Yes: Deformity Edema: No Integumentary: Yes: Pressure Ulcer, Venous Stasis Changes Wound/Incision: Yes: Dressing Dry and Intact, Unapproximated, Other Neurological: Yes: Pre-Existing Deficit, Unsteady Gait ...Motor Strength: LLE, RLE Psychiatric: Yes: Other Labs: CBC, BMP 10/12/16 06:30 10/12/16 06:30 Problem List - Problems (1) Cellulitis of left foot Code(s): L03.116 - CELLULITIS OF LEFT LOWER LIMB (2) Uncontrolled diabetes mellitus Code(s): E11.65 - TYPE 2 DIABETES MELLITUS WITH HYPERGLYCEMIA (3) Abscess of plantar aspect of foot Code(s): L02.619 - CUTANEOUS ABSCESS OF UNSPECIFIED FOOT (4) Chronic kidney disease (CKD) Code(s): N18.9 - CHRONIC KIDNEY DISEASE, UNSPECIFIED (5) Diabetes 1.5, managed as type 2 Code(s): E13.9 - OTHER SPECIFIED DIABETES MELLITUS WITHOUT COMPLICATIONS (6) Gas gangrene of foot Code(s): A48.0 - GAS GANGRENE (7) Sepsis Code(s): A41.9 - SEPSIS, UNSPECIFIED ORGANISM Qualifiers: Sepsis type: sepsis due to unspecified organism Qualified Code(s): A41.9 - Sepsis, unspecified organism (8) IDDM (insulin dependent diabetes mellitus) Code(s): E11.9 - TYPE 2 DIABETES MELLITUS WITHOUT COMPLICATIONS 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
[2016-10-13] MEDS: INSULIN SLIDING SCALE (NOVOLOG) 1 VIAL SQ SCH ×2 (06:50→12:11)
[2016-10-13] MEDS: INSULIN DETEMIR 100 UNITS/ML MDV SQ SCH (06:50)
[2016-10-13 08:21] VITALS: BP 128/79; PULSE 76; TEMP 98
--- NOTE | 2016-10-13 09:34 | DS ---
Physical Examination Vital Signs: Vital Signs Temperature 98 F 10/13/16 08:20 Pulse Rate 76 10/13/16 08:20 Respiratory Rate 20 10/13/16 08:20 Blood Pressure 128/79 10/13/16 08:20 O2 Sat by Pulse Oximetry (%) 98 10/12/16 09:00 Constitutional: Yes: No Distress Eyes: Yes: WNL HENT: Yes: WNL Neck: Yes: WNL Cardiovascular: Yes: WNL Respiratory: Yes: WNL Gastrointestinal: Yes: WNL Renal/: Yes: WNL Musculoskeletal: Yes: Muscle Weakness Extremities: Yes: Deformity, Other Edema: Yes Edema: LLE: 1+, RLE: 1+ Peripheral Pulses WNL: Yes Integumentary: Yes: Pressure Ulcer, Venous Stasis Changes Wound/Incision: Yes: Dressing Dry and Intact, Unapproximated Neurological: Yes: Numbness, Paresthesia, Pre-Existing Deficit, Unsteady Gait ...Motor Strength: LLE, RLE Psychiatric: Yes: Other Labs: CBC, BMP 10/12/16 06:30 10/12/16 06:30 Discharge Summary Reason For Visit: CELLULITIS OF LEFT FOOT Current Active Problems Cellulitis of left foot (Acute) Preop cardiovascular exam (Acute) Uncontrolled diabetes mellitus (Acute) Procedures: Principal: XRAYS/ULTRA SOUND Hospital Course: ADMITTED WORSENING CHRONIC FOOT INFECTIONS WITH WOUND CARE AND IV ABX, SENDING HOME WITH [facility] WITH IV ABX PICC LINE FOR 2 WEEKS AND WOUND CARE AT WOUND CENTER [facility]. F/U OUTPATIENT Condition: Stable - Instructions Diet, Activity, Other Instructions: ADA/LOW SODIUM Referrals: Darren Carr [Primary Care Provider] - Disposition: VNS/HOME HEALTH CARE - Home Medications Comprehensive Discharge Medication List: Ambulatory Orders Atorvastatin Calcium 40 mg PO HS 08/10/16 Bicalutamide 50 mg PO DAILY 08/10/16 Fluticasone Prop 0.05% Nasal [Flonase -] 1 - 2 spray NS DAILY 08/10/16 Insulin Aspart [Novolog Flexpen] 12 unit SQ DAILY 08/10/16 Insulin Degludec [Tresiba Flextouch U-100] 45 unit SQ DAILY 08/10/16 Multivit-Min/FA/Lycopen/Lutein [Centrum Silver Tablet] 1 each PO DAILY 08/10/16 Acetaminophen [Tylenol .Regular Strength -] 650 mg PO Q6H PRN #0 tablet Amlodipine Besylate [Norvasc -] 10 mg PO DAILY #30 tablet 08/15/16 Docusate Sodium [Colace -] 300 mg PO HS #90 capsule 08/15/16 Sodium Hypochlorite [Dakin's Solution 0.25% (Half-Strength) -] 1 applic TP DAILY #1 bottle 08/15/16 Aspirin 81 mg PO DAILY 08/17/16 Mupirocin Ointment [Bactroban 2% Ointment -] 1 applic TP BID #30 gm 08/17/16
[2016-10-13] MEDS: BICALUTAMIDE 50 MG TABLET (FP) PO SCH (10:57)
[2016-10-13] MEDS: LISINOPRIL 5 MG TABLET (FP) PO SCH (10:58)
[2016-10-13] MEDS: MULTIVITAMINS THER W-MINERALS COMBO TABLET (FP) PO SCH (10:58)
[2016-10-13] MEDS: VANCOMYCIN 1,500 MG in SODIUM CHLORIDE 500 ML IVPB SCH (10:58)
[2016-10-13] MEDS: RANITIDINE HCL 150 MG TABLET (FP) PO SCH (10:58)
[2016-10-13] MEDS: ASPIRIN 81 MG CHEWABLE TABLETS PO SCH (10:58)
[2016-10-13] MEDS: MUPIROCIN 2% TOPICAL OINTMENT 22 GM TUBE TP SCH (10:59)
[2016-10-13] MEDS: SODIUM HYPOCHLORITE 0.25%- 473 ML BULK BOTTLE TP SCH (10:59)
[2016-10-13] MEDS: HEPARIN NA (PORCINE) 5,000 UNITS/ML 1ML VIAL SQ SCH (10:59)
[2016-10-13] MEDS: FLUTICASONE PROP 0.05% 16 GM NASAL SPRAY NS SCH (10:59)
[2016-10-13] MEDS ORDERED: INSULIN (NOVOLOG) ASPART 100 UNITS/ML 10ML VIAL ONE ×2 (12:18→12:21)
== END 2016-10-13 15:50 | disposition home health service (06) | DRG 623 ==
LOC: JER 14:29 → JERBED 18:55 → J8W 10-03 22:14
PROVIDERS: ADMIT Family Medicine; ATTEND Family Medicine
PROC: 0J9R0ZZ Drainage of Left Foot Subcutaneous Tissue and Fascia, Open Approach (ICD-10-PCS; 2016-10-06)
PROC: 0JBR0ZZ Excision of Left Foot Subcutaneous Tissue and Fascia, Open Approach (ICD-10-PCS; principal; 2016-10-06 08:00)
PROC: 02HV33Z Insertion of Infusion Device into Superior Vena Cava, Percutaneous Approach (ICD-10-PCS; 2016-10-13)
PROC: B518YZA Fluoroscopy of Superior Vena Cava using Other Contrast, Guidance (ICD-10-PCS; 2016-10-13)
DX: E11.621 Type 2 diabetes mellitus with foot ulcer (principal); L02.612 Cutaneous abscess of left foot; L03.116 Cellulitis of left lower limb; E11.65 Type 2 diabetes mellitus with hyperglycemia; Z79.4 Long term (current) 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; I12.9 Hypertensive chronic kidney disease with stage 1 through stage 4 chronic kidney disease, or unspecified chronic kidney disease; N18.9 Chronic kidney disease, unspecified; E78.5 Hyperlipidemia, unspecified; L97.529 Non-pressure chronic ulcer of other part of left foot with unspecified severity; E11.40 Type 2 diabetes mellitus with diabetic neuropathy, unspecified; D72.829 Elevated white blood cell count, unspecified; R50.9 Fever, unspecified; Z85.46 Personal history of malignant neoplasm of prostate
CPT/HCPCS: 36415; 36569; 71020-TC; 73610-TC-LT; 73630-TC-LT; 76775-TC; 76856-TC; 77001-TC; 80048; 80053; 81003; 81015; 82550; 82570; 83605; 83735; 84100; 84156; 84484; 85025; 85651; 86140; 87040; 87070; 87086; 87186; 87205; 88304-TC; 93005; 93010; 94760; 99284-25; C1751; G0480; J1644

== ENCOUNTER 2016-12-31 20:20 | Inpatient (IN) | payer OTHER ==
--- NOTE | 2016-12-31 23:06 | PDOC ---
History of Present Illness - General History Source: Patient Exam Limitations: No Limitations - History of Present Illness Initial Comments: 56 M with h/o IDDM, diabetic foot ulcers, PVD with left leg stent placement, multiple toe amputations (right and left feet), prostate CA, HTN, HLD. Presents c/o about two days of worsening right foot pain from the toes to the mid-angel, now 10/10 and worsens with walking. States has difficulty standing and walking. Patient notes that he has a diabetic ulcer on the sole of the right foot (as well as one on the sole of the left foot), has drainage per his normal baseline , and is seen by Wound Care weekly. He denies any known purulent drainage. He was not able to be seen this week because his regular provider was not there on [place]. He has taken no medications for pain, but is taking amoxicillin from a prior prescription. He changes his dressings regularly. The patient notes chills, nausea, and one episode of vomiting which all started today. He denies any measured fever. <Alejandra Stark - Last Filed: 01/01/17 04:43> <Carey García - Last Filed: 01/01/17 19:30> - General Chief Complaint: Pain Stated Complaint: Foot pain Time Seen by Provider: 12/31/16 22:32 Past History - Past Medical History Anemia: No Asthma: No Cancer: Yes (Prostate (s/p seed implants July 02, 2016)) Cardiac Disorders: No CVA: No COPD: No CHF: No Dementia: No Diabetes: Yes (s/p multiple toe amputations, MRSA, Osteomyelitis) GI Disorders: No Disorders: No HTN: Yes Hypercholesterolemia: Yes Liver Disease: No Seizures: No Thyroid Disease: No - Surgical History Abdominal Surgery: No Appendectomy: No Cardiac Surgery: No Cholecystectomy: No Lung Surgery: No Neurologic Surgery: No Orthopedic Surgery: Yes - Psycho/Social/Smoking Cessation Hx Anxiety: No Suicidal Ideation: No Smoking Status: Yes (quit smoking 9 days ago) Smoking History: Never smoked Have you smoked in the past 12 months: No Number of Cigarettes Smoked Daily: 0 If you are a former smoker, when did you quit?: 2012 Information on smoking cessation initiated: No 'Breaking Loose' booklet given: 04/04/13 Hx Alcohol Use: No Drug/Substance Use Hx: No Substance Use Type: None Hx Substance Use Treatment: No <Alejandra Stark - Last Filed: 01/01/17 04:43> <Carey García - Last Filed: 01/01/17 19:30> - Past Medical History Allergies/Adverse Reactions: Allergies Allergy/AdvReac Type Severity Reaction Status Date / Time No Known Drug Allergies Allergy Verified 12/31/16 20:43 Home Medications: Ambulatory Orders Atorvastatin Calcium 40 mg PO HS 08/10/16 Acetaminophen [Tylenol .Regular Strength -] 650 mg PO Q6H PRN #0 tablet Amlodipine Besylate 5 mg PO DAILY 01/01/17 Aspirin [ASA -] 81 mg PO DAILY 01/01/17 Bicalutamide 50 mg PO DAILY 01/01/17 Insulin Aspart [Novolog Flexpen] 18 units SQ TID 01/01/17 Insulin Degludec [Tresiba Flextouch U-100] 45 units SQ HS 01/01/17 Metoprolol Succinate [Toprol XL -] 25 mg PO DAILY 01/01/17 Tamsulosin HCl [Flomax] 0.4 mg PO DAILY 01/01/17 Review of Systems - Review of Systems Able to Perform ROS?: Yes Constitutional: Yes: Chills. No: Fever, Unexplained wgt Loss HEENTM: No: Nose Congestion, Throat Pain Respiratory: No: Cough, Shortness of Breath Cardiac (ROS): No: Chest Pain, Palpitations ABD/GI: Yes: Nausea, Vomiting. No: Constipated, Diarrhea : No: Burning, Dysuria Musculoskeletal: Yes: Other (right foot pain). No: Back Pain, Neck Pain Integumentary: Yes: Other (foot ulcers, active drainage). No: Bruising Neurological: No: Headache, Numbness, Tingling, Weakness, Dizziness Endocrine: No: Unexplained Weight Gain, Unexplained Weight Loss <Alejandra Stark - Last Filed: 01/01/17 04:43> *Physical Exam - Vital Signs Last Vital Signs Temp Pulse Resp BP Pulse Ox 98.1 F 96 H 18 145/78 99 12/31/16 20:38 12/31/16 20:38 12/31/16 20:38 12/31/16 20:38 12/31/16 20:38 12/31/16 23:12 - Physical Exam General Appearance: Yes: Nourished. No: Apparent Distress HEENT: positive: EOMI, Normal Voice, Hearing Grossly Normal. negative: Scleral Icterus (R), Scleral Icterus (L), Nasal Congestion Neck: positive: Trachea midline, Supple. negative: Tender, Rigid Respiratory/Chest: positive: Lungs Clear, Normal Breath Sounds. negative: Respiratory Distress, Crackles, Rhonchi, Stridor, Wheezing Cardiovascular: positive: Regular Rhythm, Regular Rate. negative: Murmur Vascular Pulses: Dorsalis-Pedis (R): 0 (present via doppler) Gastrointestinal/Abdominal: positive: Normal Bowel Sounds, Soft, Other ( protuberant). negative: Tender, Organomegaly, Pulsatile Mass, Guarding Lymphatic: negative: Adenopathy Musculoskeletal: positive: Other (multiple). negative: Decreased Range of Motion, Vertebral Tenderness Extremity: positive: Normal Capillary Refill, Normal Inspection, Normal Range of Motion, Erythema (right dorsolateral foot and ankle). negative: Tender, Coldness, Cyanosis Integumentary: positive: Dry, Warm, Erythema (lateral aspect of right ankle and dorsolateral right foot), Other (2x2cm right foot plantar ulcer extending into dermis with active purulent drainage which is minimal, no abnormal odors, also 3x1cm left foot plantar ulcer extending to dermis with active drainage ). negative: Bruising Neurologic: positive: Fully Oriented, Alert, Normal Mood/Affect, Normal Response , Motor Strength 5/5. negative: Numbness <Alejandra Stark - Last Filed: 01/01/17 04:43> - Vital Signs Last Vital Signs Temp Pulse Resp BP Pulse Ox 98.3 F 69 18 123/73 98 01/01/17 17:49 01/01/17 17:49 01/01/17 17:49 01/01/17 17:49 01/01/17 07:27 <Carey García - Last Filed: 01/01/17 19:30> ED Treatment Course - LABORATORY CBC & Chemistry Diagram: 01/01/17 00:25 01/01/17 02:15 - ADDITIONAL ORDERS Additional order review: 01/01/17 04:14 EKG 01/01/17 00:35 sinus rhythm, rate if 96, with left axis deviation, no ST-T changes. - RADIOLOGY Radiology Studies Ordered: 01/01/17 04:21 Right foot x-ray without e/o osteomyelitis Chest X-Ray Result: No Infiltrates, Effusion, Other (rotated study) <Alejandra Stark - Last Filed: 01/01/17 04:43> - LABORATORY CBC & Chemistry Diagram: 01/01/17 00:25 01/01/17 02:15 - ADDITIONAL ORDERS Additional order review: Laboratory Results 01/01/17 00:25 C-Reactive Protein Cancelled 01/01/17 00:25 RBC 4.62 MCV 75.5 L MCHC 32.9 RDW 15.3 MPV 9.2 D Neutrophils % 87.8 H Lymphocytes % 5.5 L D Monocytes % 6.2 Eosinophils % 0.1 D Basophils % 0.4 - RADIOLOGY Radiology Studies Ordered: Category Date Time Status CHEST X-RAY PORTABLE* [RAD] Stat Radiology 01/01/17 02:25 Completed FOOT-RIGHT [RAD] Stat Radiology 01/01/17 02:25 Completed - Medications Given in the ED: ED Medications Discontinued Medications Generic Name Dose Route Start Last Admin Trade Name Freq PRN Reason Stop Dose Admin Linezolid 600 mg/ 300 mls @ 300 mls/hr 12/31/16 23:14 01/01/17 03:58 Miscellaneous IV 01/01/17 00:13 300 mls/hr ONCE ONE Administration Protocol Vancomycin HCl 1,000 mg/ 250 mls @ 250 mls/hr 12/31/16 23:14 01/01/17 01:45 Dextrose IVPB 01/01/17 00:13 250 mls/hr ONCE ONE Administration Protocol Piperacillin Sod/Tazobactam Sod 50 mls @ 100 mls/hr 01/01/17 11:00 01/01/17 12: 11 Zosyn 2.25gm Ivpb (Pre-Docked) IVPB Not Given Q8H-IV [facility] Protocol Insulin Human Regular 6 units 01/01/17 03:48 01/01/17 05:10 Novolin R Vial *For Ivpush Or Iv Drip Only* SQ 01/01/17 03:49 6 units ONCE ONE Administration Oxycodone HCl 10 mg 01/01/17 07:34 01/01/17 12:47 Roxicodone - PO 10 mg Q6H PRN Administration PAIN <Carey García - Last Filed: 01/01/17 19:30> Medical Decision Making - Medical Decision Making 01/01/17 00:46 56M with long-standing h/o IDDM, diabetic foot ulcers, recurrent infections, MRSA. With chills, nausea, vomiting x1. Right DP found via Doppler. Erythema right lateral foot. Most likely this is recurrence of diabetic foot ulcer infection and cellulitis given the active drainage, pain, and right foot erythema. Less likely but also considered on ddx are osteomyelitis, pseudomonas infection, VTE, arterial thromboembolism, or other more serious etiology. Ordering appropriate blood work for workup of infection, foot x-ray, CXR. 01/01/17 00:57 Leukocytosis >16k. Patient's foot ulcer infections have been sensitive to vancomycin and linezolid in the past, thus will initiate therapy with this combination while in the ED. 01/01/17 03:47 CRP 11.7 and some CMP abnormalities including random BG 356. Regular insulin 6U SQ ordered. <Alejandra Stark - Last Filed: 01/01/17 04:43> - Medical Decision Making 01/01/17 19:23 Case discussed and evaluated with the resident. Pt comes with foot pain on the right. Right foot is hotter than the left. Bilaterally good DP pulses and good color. Pt has multiple past toe resections. On the right foot, pt has old healing ulcers. He will be admitted and treated with vanco and linezolid, as he has had sensitivities to these meds in the past. <Carey García - Last Filed: 01/01/17 19:30> *DC/Admit/Observation/Transfer - Discharge Dispostion Admit: Yes Decision to Admit order Date/Time: Med/Surg - Attestations Physician Attestion: 01/01/17 00:56 I, Dr. Alejandra Stark, attest that this document has been prepared under my direction and personally reviewed by me in its entirety. I further attest, that it accurately reflects all work, treatment, procedures and medical decision -making performed by me. <Alejandra Stark - Last Filed: 01/01/17 04:43> <Carey García - Last Filed: 01/01/17 19:30> Diagnosis at time of Disposition: Cellulitis of right foot, PVD (peripheral vascular disease) Foot ulcer Qualifiers: Laterality: right Non-pressure ulcer stage: with fat layer exposed Qualified Code(s): L97.512 - Non-pressure chronic ulcer of other part of right foot with fat layer exposed Diabetes mellitus Qualifiers: Diabetes mellitus type: type 2 Diabetes mellitus complication status: with hyperglycemia Diabetes mellitus snf insulin use: with terminal operations supervisor use Qualified Code(s): E11.65 - Type 2 diabetes mellitus with hyperglycemia - Discharge Dispostion Condition at time of disposition: Guarded - Referrals
[2016-12-31] MEDS ORDERED: VANCOMYCIN 1,000 MG in DEXTROSE 5%-WATER - 250 ML IVPB ONE (23:14)
[2016-12-31] MEDS ORDERED: LINEZOLID 600 MG PREMIX BAG 600 MG in PREMIX 300 IV ONE (23:14)
[2017-01-01 00:43] LABS: BASOPHIL 0.4 % (0-2.0); EOSINOPHIL 0.1 % (0-4.5); MCH 24.8 pg (25.7-33.7); MCHC 32.9 g/dl (32.0-35.9); MEAN CELL VOLUME 75.5 fl (80-96); MEAN PLT VOLUME 9.2 fl (7.5-11.1); NEUTROPHILS 87.8 % (42.8-82.8); PLATELET COUNT 248 K/MM3 (134-434); RDW 15.3 % (11.9-15.9); WHITE BLOOD COUNT 16.9 K/mm3 (4.0-10.0)
[2017-01-01 03:01] LABS: ALBUMIN 3.5 g/dl (3.4-5.0); ALK PHOS 121 U/L (45-117); ANION GAP 12 (8-16); BILIRUBIN,TOTAL 0.8 mg/dL (0.2-1.0); C-REACTIVE PROTEIN 11.7 MG/DL (0.00-0.3); CALCIUM 8.5 mg/dL (8.5-10.1); CO2 24 mmol/L (21-32); CREATININE 1.8 mg/dL (0.7-1.3); SGOT/AST 11 U/L (15-37); SGPT/ALT 16 U/L (12-78); TOT PROT 7.8 g/dl (6.4-8.2)
[2017-01-01 03:04] LABS: GLUCOSE,RANDOM 356 mg/dL (74-106)
[2017-01-01] MEDS ORDERED: INSULIN REGULAR HUMAN 100 UNITS/ML *VIAL SQ ONE (03:48)
--- NOTE | 2017-01-01 04:48 | PDOC ---
Attending Attestation - Resident Resident Name: LincolnAlejandra - HPI HPI: 01/02/17 23:19 pt comes with foot pain - Physicial Exam PE: 01/02/17 23:19 right foot hot and cellulitic; r/o osteomyelitis - Medical Decision Making 01/02/17 23:19 admit for vanco and linezzolid
[2017-01-01 07:15] VITALS: BMI 27.1
[2017-01-01] MEDS ORDERED: oxyCODONE HCL 5 MG TABLET PO PRN (07:34)
[2017-01-01] MEDS: amLODIPine BESYLATE 5 MG TABLET (FP) PO SCH (09:41)
[2017-01-01] MEDS: TAMSULOSIN HCL 0.4 MG CAP.ER.24H (FP) PO SCH (09:42)
[2017-01-01] MEDS: ASPIRIN COATED 81 MG TABLET.EC PO SCH (09:42)
[2017-01-01] MEDS: BICALUTAMIDE 50 MG TABLET (FP) PO SCH (09:42)
--- NOTE | 2017-01-01 10:55 | PN ---
Progress Note (short form) - Note Progress Note: ID Consult dictated Infected R plantar ulcer Possible sepsis secondary to skin source Diabetes mellitus Await c/s Surgical evaluation Empiric vanco/ zosyn <Surendra Hampton - Last Filed: 01/01/17 10:53> - Note Progress Note: PT Seen at bedside in NAD. PT known to our practice as he is a long time pt in [facility] wound care center. Pt states he felt sick a couple of days ago, could not bear weight on his right foot and came to hospital for evaluation and management. Pt has hx of senior living ulcerations with multiple amputations b/l. PT Afebrile VSS Dressing CDI Plantar arch ulcer 2cm in diameter. Probes deep to without undermining (+) edema (+) erythema Purulence noted (+) tender on palpation NO crepitus on palpation Negative adenopathy ( popliteal , inguinal) right LE Left foot stable s/p TMA Xrays depict no gas in tissues Impression: Diabetic foot infection right foot Hx of osteomyeltis Plan: Incision and Drainage perfomed. C&S performed Abscess packed Saline wet to dry dressing applied IVABX as per ID Cont local care Thank you for courtesy of this consult <Levi Trevino - Last Filed: 01/01/17 15:18>
[2017-01-01] MEDS ORDERED: PIPERACILLIN/TAZOB 2.25 GM 50 ML IVPB SCH (11:00)
[2017-01-01] MEDS: INSULIN SLIDING SCALE (NOVOLOG) 1 VIAL SQ SCH ×3 (12:10→22:45)
--- NOTE | 2017-01-01 12:46 | HP ---
Admitting History and Physical - Primary Care Physician PCP: Nick Le - Admission Chief Complaint: RIGHT LOWER EXTREMITY PAIN/INFECTION/ULCER History of Present Illness: 56 M with h/o IDDM, diabetic foot ulcers, PVD with left leg stent placement, multiple toe amputations (right and left feet), prostate CA, HTN, HLD. Presents c/o about two days of worsening right foot pain from the toes to the mid-angel, now 10/10 and worsens with walking. States has difficulty standing and walking. Patient notes that he has a diabetic ulcer on the sole of the right foot (as well as one on the sole of the left foot), has drainage per his normal baseline , and is seen by Wound Care weekly. He denies any known purulent drainage. He was not able to be seen this week because his regular provider was not there on [place]. He has taken no medications for pain, but is taking amoxicillin from a prior prescription. He changes his dressings regularly. The patient notes chills, nausea, and one episode of vomiting which all started today. He denies any measured fever. History Source: Patient, Medical Record Limitations to Obtaining History: Poor Historian - Past Medical History LOAD DROPPER: Yes: Peripheral Neuropathy, Other (IDDM) Cardiovascular: Yes: HTN, Hyperlipdemia, Other (peripheral vascular disease) Renal/: Yes: Renal Inusuff Musculoskeletal: Yes: Osteoarthritis Endocrine: Yes: Diabetes Mellitus (Insulin dependent) - Past Surgical History Past Surgical History: Yes: Amputation (lt tma, rt toes, prostate seed implant.) - Smoking History Smoking history: Former smoker Have you smoked in the past 12 months: No Aproximately how many cigarettes per day: 15 If you are a former smoker, when did you quit?: 2013 - Alcohol/Substance Use Hx Alcohol Use: Yes (quit 2012) - Social History History of Recent Travel: No Home Medications - Allergies Allergies/Adverse Reactions: Allergies Allergy/AdvReac Type Severity Reaction Status Date / Time No Known Drug Allergies Allergy Verified 12/31/16 20:43 - Home Medications Home Medications: Ambulatory Orders Atorvastatin Calcium 40 mg PO HS 08/10/16 Acetaminophen [Tylenol .Regular Strength -] 650 mg PO Q6H PRN #0 tablet Amlodipine Besylate 5 mg PO DAILY 01/01/17 Aspirin [ASA -] 81 mg PO DAILY 01/01/17 Bicalutamide 50 mg PO DAILY 01/01/17 Insulin Aspart [Novolog Flexpen] 18 units SQ TID 01/01/17 Insulin Degludec [Tresiba Flextouch U-100] 45 units SQ HS 01/01/17 Metoprolol Succinate [Toprol XL -] 25 mg PO DAILY 01/01/17 Tamsulosin HCl [Flomax] 0.4 mg PO DAILY 01/01/17 Family Disease History - Family Disease History Family Disease History: Diabetes: Father Review of Systems - Review of Systems Constitutional: reports: Lethargy, Loss of Appetite Eyes: reports: No Symptoms HENT: reports: No Symptoms Neck: reports: No Symptoms Cardiovascular: reports: No Symptoms Respiratory: reports: No Symptoms Gastrointestinal: reports: Indigestion, Nausea Genitourinary: reports: No Symptoms Musculoskeletal: reports: Extremity Pain, Joint Pain, Muscle Weakness Integumentary: reports: Other Neurological: reports: Pre-Existing Deficit, Unsteady Gait, Weakness Hematology/Lymphatic: reports: No Symptoms Psychiatric: reports: Other Physical Examination Vital Signs: Vital Signs Temperature 99.1 F 01/01/17 06:45 Pulse Rate 90 01/01/17 06:45 Respiratory Rate 18 01/01/17 06:45 Blood Pressure 120/71 01/01/17 06:45 O2 Sat by Pulse Oximetry (%) 98 01/01/17 07:27 Constitutional: Yes: Mild Distress Eyes: Yes: WNL HENT: Yes: WNL Neck: Yes: WNL Cardiovascular: Yes: WNL Respiratory: Yes: WNL Gastrointestinal: Yes: WNL Renal/: Yes: WNL Musculoskeletal: Yes: Muscle Weakness Extremities: Yes: WNL Edema: No Peripheral Pulses WNL: Yes Integumentary: Yes: Pressure Ulcer, Rash, Venous Stasis Changes, Other Wound/Incision: Yes: Dressing Dry and Intact, Draining, Unapproximated Neurological: Yes: Pre-Existing Deficit, Unsteady Gait, Weakness ...Motor Strength: LLE, RLE Psychiatric: Yes: Other Problem List - Problems (1) Cellulitis of right foot Code(s): L03.115 - CELLULITIS OF RIGHT LOWER LIMB (2) Diabetes mellitus Code(s): E11.9 - TYPE 2 DIABETES MELLITUS WITHOUT COMPLICATIONS Qualifiers: Diabetes mellitus type: type 2 Diabetes mellitus complication status: with hyperglycemia Diabetes mellitus terminal computer operator insulin use: with fpc use Qualified Code(s): E11.65 - Type 2 diabetes mellitus with hyperglycemia ; Z79.4 - nursing home (current) 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 (3) Foot ulcer Code(s): L97.509 - NON-PRESSURE CHRONIC ULCER OTH PRT UNSP FOOT W UNSP SEVERITY Qualifiers: Laterality: right Non-pressure ulcer stage: with fat layer exposed Qualified Code(s): L97.512 - Non-pressure chronic ulcer of other part of right foot with fat layer exposed (4) PVD (peripheral vascular disease) Code(s): I73.9 - PERIPHERAL VASCULAR DISEASE, UNSPECIFIED (5) Abscess of plantar aspect of foot Code(s): L02.619 - CUTANEOUS ABSCESS OF UNSPECIFIED FOOT (6) Acute gastroenteritis Code(s): K52.9 - NONINFECTIVE GASTROENTERITIS AND COLITIS, UNSPECIFIED (7) Acute renal failure Code(s): N17.9 - ACUTE KIDNEY FAILURE, UNSPECIFIED (8) Cellulitis of left foot Code(s): L03.116 - CELLULITIS OF LEFT LOWER LIMB (9) Chronic kidney disease (CKD) Code(s): N18.9 - CHRONIC KIDNEY DISEASE, UNSPECIFIED Qualifiers: Chronic kidney disease stage: stage 3 (moderate) Qualified Code(s): N18.3 - Chronic kidney disease, stage 3 (moderate) (10) Diabetes 1.5, managed as type 2 Code(s): E13.9 - OTHER SPECIFIED DIABETES MELLITUS WITHOUT COMPLICATIONS (11) Fever Code(s): R50.9 - FEVER, UNSPECIFIED (12) Foot infection Code(s): L08.9 - LOCAL INFECTION OF THE SKIN AND SUBCUTANEOUS TISSUE, UNSP (13) Hyperglycemia Code(s): R73.9 - HYPERGLYCEMIA, UNSPECIFIED (14) Uncontrolled diabetes mellitus Code(s): E11.65 - TYPE 2 DIABETES MELLITUS WITH HYPERGLYCEMIA Qualifiers: Diabetes mellitus complication detail: with other skin complication (15) IDDM (insulin dependent diabetes mellitus) Code(s): E11.9 - TYPE 2 DIABETES MELLITUS WITHOUT COMPLICATIONS Z79.4 - JAIL (CURRENT) USE OF INSULIN (16) Osteomyelitis Code(s): M86.9 - OSTEOMYELITIS, UNSPECIFIED Qualifiers: Osteomyelitis type: other chronic Osteomyelitis location: multiple sites Qualified Code(s): M86.69 - Other chronic osteomyelitis, multiple sites Assessment/Plan IV ABX PODIATRY AND VASC SX EVAL DIETARY CONSULT NON-COMPLIANT DIABETIC WOUND INFX ACUTE AND CHRONIC
[2017-01-01] MEDS: PIPERACILLIN/TAZOB 2.25 GM 2.25 GM in SODIUM CHLORIDE 50 ML IVPB SCH ×2 (12:47→17:13)
[2017-01-01] MEDS: ACETAMINOPHEN 325 MG TABLET (FP) PO PRN ×2 (12:55→22:42)
--- NOTE | 2017-01-01 13:18 | CON.NEP ---
Consult Consult Specialty:: Nephrology Referred by:: dr lundberg Reason for Consultation:: ara - History of Present Illness Chief Complaint: foot pain History of Present Illness: 56 M with h/o IDDM, diabetic foot ulcers, PVD with left leg stent placement, multiple toe amputations (right and left feet), prostate CA, HTN, HLD. Presents c/o about two days of worsening right foot pain from the toes to the mid-angel, now 10/10 and worsens with walking. States has difficulty standing and walking. Patient notes that he has a diabetic ulcer on the sole of the right foot (as well as one on the sole of the left foot), has drainage per his normal baseline , and is seen by Wound Care weekly. He denies any known purulent drainage. He was not able to be seen this week because his regular provider was not there on [place]. He has taken no medications for pain, but is taking amoxicillin from a prior prescription. He changes his dressings regularly. The patient notes chills, nausea, and one episode of vomiting which all started today. He denies any measured fever. I am asked to see for evaluation of ARA. Denies diarrhea or vomiting. No recent new medications. 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: Peripheral Neuropathy, Other (IDDM) Cardio/Vascular: Yes: HTN, Hyperlipdemia, Other (peripheral vascular disease) Renal/: Yes: Renal Inusuff Musculoskeletal: Yes: Osteoarthritis Endocrine: Yes: Diabetes Mellitus (Insulin dependent) - Past Surgical History Past Surgical History: Yes: Amputation (lt tma, rt toes, prostate seed implant.) - Alcohol/Substance Use Hx Alcohol Use: Yes (quit 2012) - Smoking History Smoking history: Former smoker Have you smoked in the past 12 months: No Aproximately how many cigarettes per day: 15 If you are a former smoker, when did you quit?: 2013 - Social History Usual Living Arrangement: Other (with family) History of Recent Travel: No Home Medications - Allergies Allergies/Adverse Reactions: Allergies Allergy/AdvReac Type Severity Reaction Status Date / Time No Known Drug Allergies Allergy Verified 12/31/16 20:43 - Home Medications Home Medications: Ambulatory Orders Atorvastatin Calcium 40 mg PO HS 08/10/16 Acetaminophen [Tylenol .Regular Strength -] 650 mg PO Q6H PRN #0 tablet Amlodipine Besylate 5 mg PO DAILY 01/01/17 Aspirin [ASA -] 81 mg PO DAILY 01/01/17 Bicalutamide 50 mg PO DAILY 01/01/17 Insulin Aspart [Novolog Flexpen] 18 units SQ TID 01/01/17 Insulin Degludec [Tresiba Flextouch U-100] 45 units SQ HS 01/01/17 Metoprolol Succinate [Toprol XL -] 25 mg PO DAILY 01/01/17 Tamsulosin HCl [Flomax] 0.4 mg PO DAILY 01/01/17 Family Disease History - Family Disease History Family Disease History: Diabetes: Father Review of Systems - Review of Systems Constitutional: reports: No Symptoms Eyes: reports: No Symptoms HENT: reports: No Symptoms Neck: reports: No Symptoms Cardiovascular: reports: No Symptoms Respiratory: reports: No Symptoms Gastrointestinal: reports: No Symptoms Genitourinary: reports: No Symptoms Musculoskeletal: reports: Extremity Pain, Joint Swelling Integumentary: reports: Wound Neurological: reports: No Symptoms Endocrine: reports: No Symptoms Hematology/Lymphatic: reports: No Symptoms Psychiatric: reports: No Symptoms Nephrology Consult - Height Height: 5 ft 9 in - Weight Weight: 183 lb 12.8 oz - BMI Body Mass Index (BMI): 27.1 - Lab Results Anion Gap: Anion Gap Anion Gap 12 (8-16) 01/01/17 02:15 - Imaging Chest X-ray: Report Reviewed (no acute changes) X-ray: Report Reviewed - Physical Examination Vital Signs: Vital Signs Temperature 99.1 F 01/01/17 06:45 Pulse Rate 90 01/01/17 06:45 Respiratory Rate 18 01/01/17 06:45 Blood Pressure 120/71 01/01/17 06:45 O2 Sat by Pulse Oximetry (%) 98 01/01/17 07:27 Constitutional: Yes: Well Nourished, No Distress, Calm Eyes: Yes: Conjunctiva Clear, EOM Intact HENT: Yes: Atraumatic, Normocephalic Neck: Yes: Supple, Trachea Midline Cardiovascular: Yes: Regular Rate and Rhythm Respiratory: Yes: Regular, CTA Bilaterally Gastrointestinal: Yes: Normal Bowel Sounds, Soft Musculoskeletal: Yes: WNL Extremities: Yes: Amputation (right tma) Edema: No Wound/Incision: Yes: Well Approximated Neurological: Yes: Alert, Oriented Psychiatric: Yes: Alert, Oriented Assessment/Plan IMPRESSION ara likely from volume depletion and sepsis note pts hyperglycemia he does have ckd PLAN obtain urine sodium and cratinine keep hydrated avoid nephrotoxins renal sono if not already done MV
[2017-01-01] MEDS: METOPROLOL SUCCINATE 25 MG TAB.SR.24H (FP) PO SCH (13:35)
[2017-01-01] MEDS: VANCOMYCIN 1,000 MG in SODIUM CHLORIDE 250 ML IVPB SCH (13:35)
[2017-01-01] MEDS ORDERED: ACETAMINOPHEN WITH CODEINE 300MG/30MG TABLET PO PRN (13:43)
[2017-01-01] MEDS ORDERED: PT OWN MED DRAWER 7, Y5N ONE (17:12)
[2017-01-01] MEDS: SODIUM CHLORIDE 0.45% 1,000 ML IV SCH (17:25)
[2017-01-01] MEDS: ATORVASTATIN CA 20 MG TABLET (FP) PO SCH (22:42)
[2017-01-01] MEDS: INSULIN DETEMIR 100 UNITS/ML MDV SQ SCH (22:45)
[2017-01-02] MEDS ORDERED: PT OWN MED DRAWER 7, Y5N ONE ×3 (01:56→17:01)
[2017-01-02] MEDS ORDERED: VANCOMYCIN 1 GRAM (PRE-DOCKED) 250 ML IVPB SCH (02:00)
[2017-01-02] MEDS: PIPERACILLIN/TAZOB 2.25 GM 2.25 GM in SODIUM CHLORIDE 50 ML IVPB SCH ×3 (02:00→17:16)
[2017-01-02] MEDS: INSULIN SLIDING SCALE (NOVOLOG) 1 VIAL SQ SCH ×4 (06:03→22:39)
[2017-01-02 07:21] LABS: ALK PHOS 109 U/L (45-117); ANION GAP 7 (8-16); BILIRUBIN,TOTAL 0.7 mg/dL (0.2-1.0); CALCIUM 8.6 mg/dL (8.5-10.1); CHOLESTEROL 116 mg/dL (50-200); CO2 25 mmol/L (21-32); CREATININE 1.4 mg/dL (0.7-1.3); GLUCOSE,RANDOM 186 mg/dL (74-106); LDL CHOLESTEROL (ONLY SJRH) 63 mg/dL (5-100); SGOT/AST 35 U/L (15-37); SGPT/ALT 15 U/L (12-78); TOT PROT 7.1 g/dl (6.4-8.2)
[2017-01-02] MEDS: TAMSULOSIN HCL 0.4 MG CAP.ER.24H (FP) PO SCH (08:41)
[2017-01-02] MEDS: METOPROLOL SUCCINATE 25 MG TAB.SR.24H (FP) PO SCH (09:41)
[2017-01-02] MEDS: amLODIPine BESYLATE 5 MG TABLET (FP) PO SCH (09:41)
[2017-01-02] MEDS: ASPIRIN COATED 81 MG TABLET.EC PO SCH (09:41)
[2017-01-02] MEDS: BICALUTAMIDE 50 MG TABLET (FP) PO SCH (09:42)
--- NOTE | 2017-01-02 10:06 | PN ---
Progress Note (short form) - Note Progress Note: Seen at bedside in NAD Afebrile this AM but spiked 102 last night Foot looks improved s/p I&D NO purulence noted Less edema Less erythema NO malodor Ulceration granular with some fibrosis noted Impression: Diabetic foot ulcer with infection HX of Osteomyelitis Plan: Cont IVABX as per ID Cultures pending Cont local wound care
[2017-01-02] MEDS: SODIUM CHLORIDE 0.45% 1,000 ML IV SCH (10:16)
[2017-01-02 11:47] LABS: MCH 25.2 pg (25.7-33.7); MEAN CELL VOLUME 76.4 fl (80-96); MEAN PLT VOLUME 9.1 fl (7.5-11.1); RDW 14.9 % (11.9-15.9); WHITE BLOOD COUNT 12.4 K/mm3 (4.0-10.0)
[2017-01-02] MEDS ORDERED: INSULIN (NOVOLOG) ASPART 100 UNITS/ML 10ML VIAL ONE (12:26)
--- NOTE | 2017-01-02 12:49 | PN ---
Progress Note, Physician Chief Complaint: AWAKE ALERT NO NEW EVENTS OVERNIGHT - Current Medication List Current Medications: Active Medications Acetaminophen (Tylenol -) 650 mg PO Q6H PRN PRN Reason: FEVER OR PAIN Last Admin: 01/01/17 22:42 Dose: 650 mg Acetaminophen/Codeine Phosphate (Tylenol # 3 -) 1 tab PO Q6H PRN PRN Reason: PAIN Amlodipine Besylate (Norvasc -) 5 mg PO DAILY [facility] Last Admin: 01/02/17 09:41 Dose: 5 mg Aspirin (Ecotrin -) 81 mg PO DAILY [facility] Last Admin: 01/02/17 09:41 Dose: 81 mg Atorvastatin Calcium (Lipitor -) 20 mg PO HS [facility] Last Admin: 01/01/17 22:42 Dose: 20 mg Bicalutamide (Casodex -) 50 mg PO DAILY [facility] Last Admin: 01/02/17 09:42 Dose: 50 mg Piperacillin Sod/Tazobactam (Sod 2.25 gm/ Sodium Chloride) 50 mls @ 100 mls/hr IVPB Q8H-IV [facility] PRN Reason: Protocol Last Admin: 01/02/17 09:42 Dose: 100 mls/hr Vancomycin HCl 1,000 mg/ (Sodium Chloride) 250 mls @ 200 mls/hr IVPB DAILY@ 1300 [facility] Last Admin: 01/01/17 13:35 Dose: 200 mls/hr Sodium Chloride (1/2 Normal Saline) 1,000 mls @ 75 mls/hr IV ASDIR [facility] Last Admin: 01/01/17 17:25 Dose: 75 mls/hr Insulin Aspart (Novolog Vial Sliding Scale -) 1 vial SQ ACHS [facility] PRN Reason: Protocol Last Admin: 01/02/17 12:26 Dose: 4 units Insulin Detemir (Levemir Vial) 45 units SQ HS [facility] Last Admin: 01/01/17 22:45 Dose: 45 units Metoprolol Succinate (Toprol Xl -) 25 mg PO DAILY [facility] Last Admin: 01/02/17 09:41 Dose: 25 mg Tamsulosin HCl (Flomax -) 0.4 mg PO DAILY@0830 [facility] Last Admin: 01/02/17 08:41 Dose: 0.4 mg - Objective Vital Signs: Vital Signs Temperature 98.9 F 01/02/17 06:07 Pulse Rate 111 H 07/09/17 06:07 Respiratory Rate 18 01/02/17 06:07 Blood Pressure 112/71 01/02/17 06:07 O2 Sat by Pulse Oximetry (%) 98 01/01/17 22:00 Constitutional: Yes: No Distress Eyes: Yes: WNL HENT: Yes: WNL Neck: Yes: WNL Cardiovascular: Yes: WNL Respiratory: Yes: WNL Gastrointestinal: Yes: WNL Genitourinary: Yes: WNL Musculoskeletal: Yes: Muscle Weakness Extremities: Yes: Amputation, Deformity Edema: No Peripheral Pulses WNL: Yes Integumentary: Yes: Pressure Ulcer, Rash, Skin Tear, Venous Stasis Changes Wound/Incision: Yes: Dressing Dry and Intact, Excoriated Neurological: Yes: Paresthesia, Pre-Existing Deficit, Unresponsive, Unsteady Gait, Weakness ...Motor Strength: LLE, RLE Psychiatric: Yes: Other Labs: CBC, BMP 01/02/17 05:45 01/02/17 05:45 Problem List - Problems (1) Cellulitis of right foot Code(s): L03.115 - CELLULITIS OF RIGHT LOWER LIMB (2) Diabetes mellitus Code(s): E11.9 - TYPE 2 DIABETES MELLITUS WITHOUT COMPLICATIONS Qualifiers: Diabetes mellitus type: type 2 Diabetes mellitus complication status: with hyperglycemia Diabetes mellitus long-term insulin use: with long-term use Qualified Code(s): E11.65 - Type 2 diabetes mellitus with hyperglycemia ; Z79.4 - 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 (3) Foot ulcer Code(s): L97.509 - NON-PRESSURE CHRONIC ULCER OTH PRT UNSP FOOT W UNSP SEVERITY Qualifiers: Laterality: right Non-pressure ulcer stage: with fat layer exposed Qualified Code(s): L97.512 - Non-pressure chronic ulcer of other part of right foot with fat layer exposed (4) PVD (peripheral vascular disease) Code(s): I73.9 - PERIPHERAL VASCULAR DISEASE, UNSPECIFIED (5) Abscess of plantar aspect of foot Code(s): L02.619 - CUTANEOUS ABSCESS OF UNSPECIFIED FOOT (6) Acute gastroenteritis Code(s): K52.9 - NONINFECTIVE GASTROENTERITIS AND COLITIS, UNSPECIFIED (7) Acute renal failure Code(s): N17.9 - ACUTE KIDNEY FAILURE, UNSPECIFIED (8) Cellulitis of left foot Code(s): L03.116 - CELLULITIS OF LEFT LOWER LIMB (9) Chronic kidney disease (CKD) Code(s): N18.9 - CHRONIC KIDNEY DISEASE, UNSPECIFIED Qualifiers: Chronic kidney disease stage: stage 3 (moderate) Qualified Code(s): N18.3 - Chronic kidney disease, stage 3 (moderate) (10) Diabetes 1.5, managed as type 2 Code(s): E13.9 - OTHER SPECIFIED DIABETES MELLITUS WITHOUT COMPLICATIONS (11) Fever Code(s): R50.9 - FEVER, UNSPECIFIED (12) Foot infection Code(s): L08.9 - LOCAL INFECTION OF THE SKIN AND SUBCUTANEOUS TISSUE, UNSP (13) Hyperglycemia Code(s): R73.9 - HYPERGLYCEMIA, UNSPECIFIED (14) Uncontrolled diabetes mellitus Code(s): E11.65 - TYPE 2 DIABETES MELLITUS WITH HYPERGLYCEMIA Qualifiers: Diabetes mellitus complication detail: with other skin complication (15) IDDM (insulin dependent diabetes mellitus) Code(s): E11.9 - TYPE 2 DIABETES MELLITUS WITHOUT COMPLICATIONS Z79.4 - HALF-WAY (CURRENT) USE OF INSULIN (16) Osteomyelitis Code(s): M86.9 - OSTEOMYELITIS, UNSPECIFIED Qualifiers: Osteomyelitis type: other chronic Osteomyelitis location: multiple sites Qualified Code(s): M86.69 - Other chronic osteomyelitis, multiple sites Assessment/Plan IV ABX PODIATRY AND VASC SX EVAL DIETARY CONSULT NON-COMPLIANT DIABETIC WOUND INFX ACUTE AND CHRONIC
[2017-01-02] MEDS: VANCOMYCIN 1,000 MG in SODIUM CHLORIDE 250 ML IVPB SCH (13:06)
--- NOTE | 2017-01-02 13:33 | PN ---
Progress Note (short form) - Note Progress Note: RENAL Pt is awake and alert comfortable getting fluids since yesterday Last Vital Signs Temp Pulse Resp BP Pulse Ox 98.8 F 106 H 18 149/86 98 01/02/17 10:00 01/02/17 10:00 01/02/17 10:00 01/02/17 10:00 01/02/17 10:00 lungs clear cvs s1s2 rr abd soft ext no edema, TMA on left neuro a+ox3 CBC, BMP 01/02/17 05:45 01/02/17 05:45 Current Medications Generic Name Dose Route Start Last Admin Trade Name Freq PRN Reason Stop Dose Admin Acetaminophen 650 mg 01/01/17 07:26 01/01/17 22:42 Tylenol - PO 650 mg Q6H PRN Administration FEVER OR PAIN Acetaminophen/Codeine Phosphate 1 tab 01/01/17 13:43 Tylenol # 3 - PO Q6H PRN PAIN Amlodipine Besylate 5 mg 01/01/17 10:00 01/02/17 09:41 Norvasc - PO 5 mg DAILY [facility] Administration Aspirin 81 mg 01/01/17 10:00 01/02/17 09:41 Ecotrin - PO 81 mg DAILY [facility] Administration Atorvastatin Calcium 20 mg 01/01/17 22:00 01/01/17 22:42 Lipitor - PO 20 mg HS [facility] Administration Bicalutamide 50 mg 01/01/17 10:00 01/02/17 09:42 Casodex - PO 50 mg DAILY [facility] Administration Piperacillin Sod/Tazobactam 50 mls @ 100 mls/hr 01/01/17 12:00 01/02/17 09:42 Sod 2.25 gm/ Sodium Chloride IVPB 100 mls/hr Q8H-IV [facility] Administration Protocol Vancomycin HCl 1,000 mg/ 250 mls @ 200 mls/hr 01/01/17 13:00 01/02/17 13:06 Sodium Chloride IVPB 200 mls/hr DAILY@1300 [facility] Administration Sodium Chloride 1,000 mls @ 75 mls/hr 01/01/17 17:15 01/01/17 17:25 1/2 Normal Saline IV 75 mls/hr ASDIR [facility] Administration Insulin Aspart 1 vial 01/01/17 11:00 01/02/17 12:26 Novolog Vial Sliding Scale - SQ 4 units ACHS [facility] Administration Protocol Insulin Detemir 45 units 01/01/17 22:00 01/01/17 22:45 Levemir Vial SQ 45 units HS [facility] Administration Metoprolol Succinate 25 mg 01/01/17 13:00 01/02/17 09:41 Toprol Xl - PO 25 mg DAILY [facility] Administration Tamsulosin HCl 0.4 mg 01/01/17 08:30 01/02/17 08:41 Flomax - PO 0.4 mg DAILY@0830 [facility] Administration IMPRESSION kenji improved mild hyponatremia foot infection PLAN continue antibiotics switch fluids to NS wound care MV
[2017-01-02 13:56] LABS: PLATELET COUNT 200 K/MM3 (134-434)
--- NOTE | 2017-01-02 19:59 | PN ---
Progress Note, Physician History of Present Illness: No c/o foot pain Temp noted Tolerating antibiotics Cultures pending - Current Medication List Current Medications: Active Medications Acetaminophen (Tylenol -) 650 mg PO Q6H PRN PRN Reason: FEVER OR PAIN Last Admin: 01/01/17 22:42 Dose: 650 mg Acetaminophen/Codeine Phosphate (Tylenol # 3 -) 1 tab PO Q6H PRN PRN Reason: PAIN Amlodipine Besylate (Norvasc -) 5 mg PO DAILY [facility] Last Admin: 01/02/17 09:41 Dose: 5 mg Aspirin (Ecotrin -) 81 mg PO DAILY [facility] Last Admin: 01/02/17 09:41 Dose: 81 mg Atorvastatin Calcium (Lipitor -) 20 mg PO HS [facility] Last Admin: 01/01/17 22:42 Dose: 20 mg Bicalutamide (Casodex -) 50 mg PO DAILY [facility] Last Admin: 01/02/17 09:42 Dose: 50 mg Piperacillin Sod/Tazobactam (Sod 2.25 gm/ Sodium Chloride) 50 mls @ 100 mls/hr IVPB Q8H-IV [facility] PRN Reason: Protocol Last Admin: 01/02/17 17:16 Dose: 100 mls/hr Vancomycin HCl 1,000 mg/ (Sodium Chloride) 250 mls @ 200 mls/hr IVPB DAILY@ 1300 [facility] Last Admin: 01/02/17 13:06 Dose: 200 mls/hr Sodium Chloride (1/2 Normal Saline) 1,000 mls @ 75 mls/hr IV ASDIR [facility] Last Admin: 01/02/17 10:16 Dose: 75 mls/hr Insulin Aspart (Novolog Vial Sliding Scale -) 1 vial SQ ACHS [facility] PRN Reason: Protocol Last Admin: 01/02/17 17:17 Dose: 4 units Insulin Detemir (Levemir Vial) 45 units SQ HS [facility] Last Admin: 01/01/17 22:45 Dose: 45 units Metoprolol Succinate (Toprol Xl -) 25 mg PO DAILY [facility] Last Admin: 01/02/17 09:41 Dose: 25 mg Tamsulosin HCl (Flomax -) 0.4 mg PO DAILY@0830 [facility] Last Admin: 01/02/17 08:41 Dose: 0.4 mg - Objective Vital Signs: Vital Signs Temperature 98.3 F 01/02/17 16:59 Pulse Rate 84 01/02/17 16:59 Respiratory Rate 20 01/02/17 16:59 Blood Pressure 127/77 01/02/17 16:59 O2 Sat by Pulse Oximetry (%) 98 01/02/17 10:00 Constitutional: Yes: No Distress Eyes: Yes: Conjunctiva Clear Cardiovascular: Yes: Regular Rate and Rhythm, S1, S2 Respiratory: Yes: CTA Bilaterally Gastrointestinal: Yes: Normal Bowel Sounds, Soft Extremities: Yes: Other (R plantar ulcer no drainage) Labs: CBC, BMP 01/02/17 05:45 01/02/17 05:45 Assessment/Plan Infected R plantar ulcer S/P I&D R foot ulcer Await c/s Continue empiric vancomycin / zosyn
[2017-01-02] MEDS: INSULIN DETEMIR 100 UNITS/ML MDV SQ SCH (22:38)
[2017-01-02] MEDS: ATORVASTATIN CA 20 MG TABLET (FP) PO SCH (22:38)
[2017-01-03] MEDS ORDERED: PT OWN MED DRAWER 7, Y5N ONE ×3 (00:56→17:09)
[2017-01-03] MEDS: PIPERACILLIN/TAZOB 2.25 GM 2.25 GM in SODIUM CHLORIDE 50 ML IVPB SCH ×3 (01:36→17:18)
[2017-01-03] MEDS: INSULIN SLIDING SCALE (NOVOLOG) 1 VIAL SQ SCH ×4 (06:06→21:44)
[2017-01-03] MEDS: SODIUM CHLORIDE 0.45% 1,000 ML IV SCH ×2 (06:08→13:22)
--- NOTE | 2017-01-03 07:38 | PN ---
Progress Note (short form) - Note Progress Note: Seen at bedside in NAD Afebrile VSS Dressing CDI Denies CP SOB Calf pain States foot feeling better and he is also feeling much better. Foot clinically improved NO purulence Pain decreased. Less edema Less erythema No signs of ascending cellulitis or adenopathy Impression Diabetic foot infection/ulcer Plan: Dressing change performed Blood cultures are negative Wound culture pending IVABX CONT local wound care
[2017-01-03] MEDS: amLODIPine BESYLATE 5 MG TABLET (FP) PO SCH (09:23)
[2017-01-03] MEDS: ASPIRIN COATED 81 MG TABLET.EC PO SCH (09:23)
[2017-01-03] MEDS: BICALUTAMIDE 50 MG TABLET (FP) PO SCH (09:23)
[2017-01-03] MEDS: METOPROLOL SUCCINATE 25 MG TAB.SR.24H (FP) PO SCH (09:23)
[2017-01-03] MEDS: TAMSULOSIN HCL 0.4 MG CAP.ER.24H (FP) PO SCH (09:23)
--- NOTE | 2017-01-03 12:18 | PN ---
Progress Note (short form) - Note Progress Note: VAscular Surgery Pt seen and examined. Right plantar foot ulcer Palpable pulses. Ulcer is clean. No signs of infection with pus. Could not express any discharge. Cont antibiotics. Santyl to wound daily. Guerrero Nuno DO
[2017-01-03] MEDS: ACETAMINOPHEN 325 MG TABLET (FP) PO PRN (12:56)
[2017-01-03] MEDS: VANCOMYCIN 1,000 MG in SODIUM CHLORIDE 250 ML IVPB SCH (12:56)
--- NOTE | 2017-01-03 13:11 | PN ---
Progress Note, Physician History of Present Illness: Pt seen and examined at bedside. He is awake and alert. He denies shortness of breath. - Current Medication List Current Medications: Active Medications Acetaminophen (Tylenol -) 650 mg PO Q6H PRN PRN Reason: FEVER OR PAIN Last Admin: 01/03/17 12:56 Dose: 650 mg Acetaminophen/Codeine Phosphate (Tylenol # 3 -) 1 tab PO Q6H PRN PRN Reason: PAIN Amlodipine Besylate (Norvasc -) 5 mg PO DAILY [facility] Last Admin: 01/03/17 09:23 Dose: 5 mg Aspirin (Ecotrin -) 81 mg PO DAILY [facility] Last Admin: 01/03/17 09:23 Dose: 81 mg Atorvastatin Calcium (Lipitor -) 20 mg PO HS [facility] Last Admin: 01/02/17 22:38 Dose: 20 mg Bicalutamide (Casodex -) 50 mg PO DAILY [facility] Last Admin: 01/03/17 09:23 Dose: 50 mg Piperacillin Sod/Tazobactam (Sod 2.25 gm/ Sodium Chloride) 50 mls @ 100 mls/hr IVPB Q8H-IV [facility] PRN Reason: Protocol Last Admin: 01/03/17 09:24 Dose: 100 mls/hr Vancomycin HCl 1,000 mg/ (Sodium Chloride) 250 mls @ 200 mls/hr IVPB DAILY@ 1300 [facility] Last Admin: 01/03/17 12:56 Dose: 200 mls/hr Sodium Chloride (1/2 Normal Saline) 1,000 mls @ 75 mls/hr IV ASDIR [facility] Last Admin: 01/03/17 06:08 Dose: 75 mls/hr Insulin Aspart (Novolog Vial Sliding Scale -) 1 vial SQ ACHS [facility] PRN Reason: Protocol Last Admin: 01/03/17 11:29 Dose: 4 units Insulin Detemir (Levemir Vial) 45 units SQ HS [facility] Last Admin: 01/02/17 22:38 Dose: 45 units Metoprolol Succinate (Toprol Xl -) 25 mg PO DAILY [facility] Last Admin: 01/03/17 09:23 Dose: 25 mg Tamsulosin HCl (Flomax -) 0.4 mg PO DAILY@0830 [facility] Last Admin: 01/03/17 09:23 Dose: 0.4 mg - Objective Vital Signs: Vital Signs Temperature 99.1 F 01/03/17 05:42 Pulse Rate 75 01/03/17 05:42 Respiratory Rate 16 01/03/17 10:00 Blood Pressure 142/77 01/03/17 05:42 O2 Sat by Pulse Oximetry (%) 95 01/03/17 10:00 Constitutional: Yes: Calm Eyes: Yes: Conjunctiva Clear HENT: Yes: Atraumatic Neck: Yes: Supple Cardiovascular: Yes: S1, S2 Respiratory: Yes: CTA Bilaterally Gastrointestinal: Yes: Soft Genitourinary: Yes: WNL Edema: No Wound/Incision: Yes: Dressing Dry and Intact Neurological: Yes: Oriented Psychiatric: Yes: Oriented Labs: CBC, BMP 01/02/17 05:45 01/02/17 05:45 Problem List - Problems (1) Diabetes mellitus Code(s): E11.9 - TYPE 2 DIABETES MELLITUS WITHOUT COMPLICATIONS Qualifiers: Diabetes mellitus type: type 2 Diabetes mellitus complication status: with hyperglycemia Diabetes mellitus prison insulin use: with prison use Qualified Code(s): E11.65 - Type 2 diabetes mellitus with hyperglycemia ; Z79.4 - 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 (2) Foot ulcer Code(s): L97.509 - NON-PRESSURE CHRONIC ULCER OTH PRT UNSP FOOT W UNSP SEVERITY Qualifiers: Laterality: right Non-pressure ulcer stage: with fat layer exposed Qualified Code(s): L97.512 - Non-pressure chronic ulcer of other part of right foot with fat layer exposed (3) Chronic kidney disease (CKD) Code(s): N18.9 - CHRONIC KIDNEY DISEASE, UNSPECIFIED Qualifiers: Chronic kidney disease stage: stage 3 (moderate) Qualified Code(s): N18.3 - Chronic kidney disease, stage 3 (moderate) (4) HTN (hypertension) Code(s): I10 - ESSENTIAL (PRIMARY) HYPERTENSION Qualifiers: Assessment/Plan Current Medications Generic Name Dose Route Start Last Admin Trade Name Freq PRN Reason Stop Dose Admin Acetaminophen 650 mg 01/01/17 07:26 01/03/17 12:56 Tylenol - PO 650 mg Q6H PRN Administration FEVER OR PAIN Acetaminophen/Codeine Phosphate 1 tab 01/01/17 13:43 Tylenol # 3 - PO Q6H PRN PAIN Amlodipine Besylate 5 mg 01/01/17 10:00 01/03/17 09:23 Norvasc - PO 5 mg DAILY [facility] Administration Aspirin 81 mg 01/01/17 10:00 01/03/17 09:23 Ecotrin - PO 81 mg DAILY [facility] Administration Atorvastatin Calcium 20 mg 01/01/17 22:00 01/02/17 22:38 Lipitor - PO 20 mg HS [facility] Administration Bicalutamide 50 mg 01/01/17 10:00 01/03/17 09:23 Casodex - PO 50 mg DAILY [facility] Administration Piperacillin Sod/Tazobactam 50 mls @ 100 mls/hr 01/01/17 12:00 01/03/17 09:24 Sod 2.25 gm/ Sodium Chloride IVPB 100 mls/hr Q8H-IV [facility] Administration Protocol Vancomycin HCl 1,000 mg/ 250 mls @ 200 mls/hr 01/01/17 13:00 01/03/17 12:56 Sodium Chloride IVPB 200 mls/hr DAILY@1300 [facility] Administration Sodium Chloride 1,000 mls @ 75 mls/hr 01/01/17 17:15 01/03/17 06:08 1/2 Normal Saline IV 75 mls/hr ASDIR [facility] Administration Insulin Aspart 1 vial 01/01/17 11:00 01/03/17 11:29 Novolog Vial Sliding Scale - SQ 4 units ACHS [facility] Administration Protocol Insulin Detemir 45 units 01/01/17 22:00 01/02/17 22:38 Levemir Vial SQ 45 units HS [facility] Administration Metoprolol Succinate 25 mg 01/01/17 13:00 01/03/17 09:23 Toprol Xl - PO 25 mg DAILY [facility] Administration Tamsulosin HCl 0.4 mg 01/01/17 08:30 01/03/17 09:23 Flomax - PO 0.4 mg DAILY@0830 [facility] Administration Impression 1. CKD with acute component now improving 2. cellulitis 3. HTN 4. DM 5. proteinuria 6. hyperlipidemia Plan - decrease rate of fluids - repeat bmp - check ua - also check labs in am - abs per ID - cont wound care Dr Walter
--- NOTE | 2017-01-03 13:50 | PN ---
Progress Note, Physician History of Present Illness: No c/o foot pain No wound drainage No fever/ chills Afebrile WBC improved Wound c/s polymicrobial - Current Medication List Current Medications: Active Medications Acetaminophen (Tylenol -) 650 mg PO Q6H PRN PRN Reason: FEVER OR PAIN Last Admin: 01/03/17 12:56 Dose: 650 mg Acetaminophen/Codeine Phosphate (Tylenol # 3 -) 1 tab PO Q6H PRN PRN Reason: PAIN Amlodipine Besylate (Norvasc -) 5 mg PO DAILY [facility] Last Admin: 01/03/17 09:23 Dose: 5 mg Aspirin (Ecotrin -) 81 mg PO DAILY [facility] Last Admin: 01/03/17 09:23 Dose: 81 mg Atorvastatin Calcium (Lipitor -) 20 mg PO HS [facility] Last Admin: 01/02/17 22:38 Dose: 20 mg Bicalutamide (Casodex -) 50 mg PO DAILY [facility] Last Admin: 01/03/17 09:23 Dose: 50 mg Piperacillin Sod/Tazobactam (Sod 2.25 gm/ Sodium Chloride) 50 mls @ 100 mls/hr IVPB Q8H-IV [facility] PRN Reason: Protocol Last Admin: 01/03/17 09:24 Dose: 100 mls/hr Vancomycin HCl 1,000 mg/ (Sodium Chloride) 250 mls @ 200 mls/hr IVPB DAILY@ 1300 [facility] Last Admin: 01/03/17 12:56 Dose: 200 mls/hr Sodium Chloride (1/2 Normal Saline) 1,000 mls @ 42 mls/hr IV ASDIR [facility] Insulin Aspart (Novolog Vial Sliding Scale -) 1 vial SQ ACHS [facility] PRN Reason: Protocol Last Admin: 01/03/17 11:29 Dose: 4 units Insulin Detemir (Levemir Vial) 45 units SQ HS [facility] Last Admin: 01/02/17 22:38 Dose: 45 units Metoprolol Succinate (Toprol Xl -) 25 mg PO DAILY [facility] Last Admin: 01/03/17 09:23 Dose: 25 mg Tamsulosin HCl (Flomax -) 0.4 mg PO DAILY@0830 [facility] Last Admin: 01/03/17 09:23 Dose: 0.4 mg - Objective Vital Signs: Vital Signs Temperature 99.1 F 01/03/17 05:42 Pulse Rate 75 01/03/17 05:42 Respiratory Rate 16 01/03/17 10:00 Blood Pressure 142/77 01/03/17 05:42 O2 Sat by Pulse Oximetry (%) 95 01/03/17 10:00 Constitutional: Yes: No Distress Eyes: Yes: Conjunctiva Clear Cardiovascular: Yes: Regular Rate and Rhythm, S1, S2 Respiratory: Yes: CTA Bilaterally Gastrointestinal: Yes: Normal Bowel Sounds, Soft. No: Tenderness Extremities: Yes: Other (R plantar wound no drainage) Labs: CBC, BMP 01/02/17 05:45 Assessment/Plan Infected R plantar ulcer S/P I&D R foot ulcer Await wound c/s Continue empiric vancomycin / zosyn
--- NOTE | 2017-01-03 13:55 | EKG ---
Test Reason : Blood Pressure : / mmHG Vent. Rate : 096 BPM Atrial Rate : 096 BPM P-R Int : 154 ms QRS Dur : 094 ms QT Int : 372 ms P-R-T Axes : 033 -31 030 degrees QTc Int : 469 ms NORMAL SINUS RHYTHM LEFT AXIS DEVIATION ABNORMAL ECG WHEN COMPARED WITH ECG OF 02-OCT-2016 19:03, NO SIGNIFICANT CHANGE WAS FOUND Confirmed by TRINY WYNNE MD ([id number]) on 01/03/2017 1:55:01 PM Referred By: Confirmed By:TRINY WYNNE MD
[2017-01-03 14:30] LABS: ANION GAP 8 (8-16); CALCIUM 8.6 mg/dL (8.5-10.1); CO2 26 mmol/L (21-32); CREATININE 1.2 mg/dL (0.7-1.3); GLUCOSE,RANDOM 238 mg/dL (74-106)
--- NOTE | 2017-01-03 16:38 | PN ---
Progress Note (short form) - Note Progress Note: Renal Addendum Laboratory Tests 01/02/17 01/02/17 01/03/17 05:45 05:45 13:35 WBC 12.4 H Hgb 11.2 L Sodium 135 L Potassium 4.4 Chloride 101 Carbon Dioxide 26 Anion Gap 8 BUN 27 H 21 H D Creatinine 1.4 H D 1.2 Random Glucose 186 H D 238 H D labs reviewed renal function is stable Problem List - Problems (1) Diabetes mellitus Code(s): E11.9 - TYPE 2 DIABETES MELLITUS WITHOUT COMPLICATIONS Qualifiers: Diabetes mellitus type: type 2 Diabetes mellitus complication status: with hyperglycemia Diabetes mellitus longitudinal float operator insulin use: with fpc use Qualified Code(s): E11.65 - Type 2 diabetes mellitus with hyperglycemia ; Z79.4 - intermediate project manager (current) 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 (2) Foot ulcer Code(s): L97.509 - NON-PRESSURE CHRONIC ULCER OTH PRT UNSP FOOT W UNSP SEVERITY Qualifiers: Laterality: right Non-pressure ulcer stage: with fat layer exposed Qualified Code(s): L97.512 - Non-pressure chronic ulcer of other part of right foot with fat layer exposed (3) Chronic kidney disease (CKD) Code(s): N18.9 - CHRONIC KIDNEY DISEASE, UNSPECIFIED Qualifiers: Chronic kidney disease stage: stage 3 (moderate) Qualified Code(s): N18.3 - Chronic kidney disease, stage 3 (moderate) (4) HTN (hypertension) Code(s): I10 - ESSENTIAL (PRIMARY) HYPERTENSION Qualifiers:
--- NOTE | 2017-01-03 17:47 | PN ---
Progress Note, Physician Chief Complaint: ASLEEP COMFORTABLE AWAITING WOUND CX RESULTS AND SENS. - Current Medication List Current Medications: Active Medications Acetaminophen (Tylenol -) 650 mg PO Q6H PRN PRN Reason: FEVER OR PAIN Last Admin: 01/03/17 12:56 Dose: 650 mg Acetaminophen/Codeine Phosphate (Tylenol # 3 -) 1 tab PO Q6H PRN PRN Reason: PAIN Amlodipine Besylate (Norvasc -) 5 mg PO DAILY [facility] Last Admin: 01/03/17 09:23 Dose: 5 mg Aspirin (Ecotrin -) 81 mg PO DAILY [facility] Last Admin: 01/03/17 09:23 Dose: 81 mg Atorvastatin Calcium (Lipitor -) 20 mg PO HS [facility] Last Admin: 01/02/17 22:38 Dose: 20 mg Bicalutamide (Casodex -) 50 mg PO DAILY [facility] Last Admin: 01/03/17 09:23 Dose: 50 mg Piperacillin Sod/Tazobactam (Sod 2.25 gm/ Sodium Chloride) 50 mls @ 100 mls/hr IVPB Q8H-IV [facility] PRN Reason: Protocol Last Admin: 01/03/17 17:18 Dose: 100 mls/hr Vancomycin HCl 1,000 mg/ (Sodium Chloride) 250 mls @ 200 mls/hr IVPB DAILY@ 1300 [facility] Last Admin: 01/03/17 12:56 Dose: 200 mls/hr Sodium Chloride (1/2 Normal Saline) 1,000 mls @ 42 mls/hr IV ASDIR [facility] Last Admin: 01/03/17 13:22 Dose: 42 mls/hr Insulin Aspart (Novolog Vial Sliding Scale -) 1 vial SQ ACHS [facility] PRN Reason: Protocol Last Admin: 01/03/17 17:19 Dose: 4 units Insulin Detemir (Levemir Vial) 45 units SQ HS [facility] Last Admin: 01/02/17 22:38 Dose: 45 units Metoprolol Succinate (Toprol Xl -) 25 mg PO DAILY [facility] Last Admin: 01/03/17 09:23 Dose: 25 mg Tamsulosin HCl (Flomax -) 0.4 mg PO DAILY@0830 [facility] Last Admin: 01/03/17 09:23 Dose: 0.4 mg - Objective Vital Signs: Vital Signs Temperature 97.8 F 01/03/17 17:24 Pulse Rate 75 01/03/17 17:24 Respiratory Rate 20 01/03/17 17:24 Blood Pressure 131/82 01/03/17 17:24 O2 Sat by Pulse Oximetry (%) 95 01/03/17 10:00 Constitutional: Yes: Mild Distress Eyes: Yes: WNL HENT: Yes: WNL Neck: Yes: WNL Cardiovascular: Yes: WNL Respiratory: Yes: WNL Gastrointestinal: Yes: WNL Genitourinary: Yes: Other Musculoskeletal: Yes: Muscle Weakness Extremities: Yes: Amputation, Deformity, Other Edema: Yes Edema: LLE: 1+, RLE: 1+ Peripheral Pulses WNL: Yes Integumentary: Yes: Laceration, Pressure Ulcer, Rash, Skin Tear, Venous Stasis Changes Wound/Incision: Yes: Open to air, Draining Neurological: Yes: Other ...Motor Strength: LLE, RLE Psychiatric: Yes: Other Labs: CBC, BMP 01/02/17 05:45 01/03/17 13:35 Problem List - Problems (1) Cellulitis of right foot Code(s): L03.115 - CELLULITIS OF RIGHT LOWER LIMB (2) Diabetes mellitus Code(s): E11.9 - TYPE 2 DIABETES MELLITUS WITHOUT COMPLICATIONS Qualifiers: Diabetes mellitus type: type 2 Diabetes mellitus complication status: with hyperglycemia Diabetes mellitus custodial insulin use: with custodial use Qualified Code(s): E11.65 - Type 2 diabetes mellitus with hyperglycemia ; Z79.4 - marine oil terminal superintendent (current) 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 (3) Foot ulcer Code(s): L97.509 - NON-PRESSURE CHRONIC ULCER OTH PRT UNSP FOOT W UNSP SEVERITY Qualifiers: Laterality: right Non-pressure ulcer stage: with fat layer exposed Qualified Code(s): L97.512 - Non-pressure chronic ulcer of other part of right foot with fat layer exposed (4) PVD (peripheral vascular disease) Code(s): I73.9 - PERIPHERAL VASCULAR DISEASE, UNSPECIFIED (5) Abscess of plantar aspect of foot Code(s): L02.619 - CUTANEOUS ABSCESS OF UNSPECIFIED FOOT (6) Acute gastroenteritis Code(s): K52.9 - NONINFECTIVE GASTROENTERITIS AND COLITIS, UNSPECIFIED (7) Acute renal failure Code(s): N17.9 - ACUTE KIDNEY FAILURE, UNSPECIFIED (8) Cellulitis of left foot Code(s): L03.116 - CELLULITIS OF LEFT LOWER LIMB (9) Chronic kidney disease (CKD) Code(s): N18.9 - CHRONIC KIDNEY DISEASE, UNSPECIFIED Qualifiers: Chronic kidney disease stage: stage 3 (moderate) Qualified Code(s): N18.3 - Chronic kidney disease, stage 3 (moderate) (10) Diabetes 1.5, managed as type 2 Code(s): E13.9 - OTHER SPECIFIED DIABETES MELLITUS WITHOUT COMPLICATIONS (11) Fever Code(s): R50.9 - FEVER, UNSPECIFIED (12) Foot infection Code(s): L08.9 - LOCAL INFECTION OF THE SKIN AND SUBCUTANEOUS TISSUE, UNSP (13) Hyperglycemia Code(s): R73.9 - HYPERGLYCEMIA, UNSPECIFIED (14) Uncontrolled diabetes mellitus Code(s): E11.65 - TYPE 2 DIABETES MELLITUS WITH HYPERGLYCEMIA Qualifiers: Diabetes mellitus complication detail: with other skin complication (15) IDDM (insulin dependent diabetes mellitus) Code(s): E11.9 - TYPE 2 DIABETES MELLITUS WITHOUT COMPLICATIONS Z79.4 - CONTROL SYSTEMS DEVELOPER (CURRENT) USE OF INSULIN (16) Osteomyelitis Code(s): M86.9 - OSTEOMYELITIS, UNSPECIFIED Qualifiers: Osteomyelitis type: other chronic Osteomyelitis location: multiple sites Qualified Code(s): M86.69 - Other chronic osteomyelitis, multiple sites Assessment/Plan IV ABX CONT, AWAIT CX AND SENS. PODIATRY AND VASC SX EVAL DIETARY CONSULT NON-COMPLIANT DIABETIC WOUND INFX ACUTE AND CHRONIC
[2017-01-03] MEDS ORDERED: INSULIN (NOVOLOG) ASPART 100 UNITS/ML 10ML VIAL ONE (21:22)
--- NOTE | 2017-01-03 21:26 | CONS ---
DATE OF CONSULTATION: DATE OF DICTATION: 01/03/2017 A 56-year-old insulin-dependent diabetic with a history of diabetic foot infections and osteomyelitis, evaluated for infected right plantar ulcer. Patient was being followed in the wound care center for a non-healing ulceration on the plantar aspect of the right foot. He reported increasing foot pain, erythema, swelling, and wound drainage. He had taken amoxicillin, which he had had at home. He also complained of some nausea, vomiting and chills. He presented to the emergency room, where he was found to have cellulitis of the foot and an infected plantar ulcer. He was empirically treated with vancomycin and Zyvox. His course was complicated by elevated white blood cell count. PAST MEDICAL HISTORY: Positive for insulin-dependent diabetes mellitus, history of infected diabetic foot ulcers and osteomyelitis, prostate cancer, peripheral vascular disease. PAST SURGICAL HISTORY: Status post left lower extremity vascular stent, left transmetatarsal amputation. Medications include Lipitor, Norvasc, aspirin, insulin, Toprol, Flomax. SOCIAL HISTORY: Lives at home in the community. Former smoker. Nondrinker. SYSTEMS REVIEW: Neurologic: No loss of consciousness, seizure activity, or focal weakness. Cardiac: Negative chest pain or palpitations. Respiratory: Negative cough or sputum production. Gastrointestinal: As per HPI. Genitourinary: Negative for urinary tract infection. LABORATORY DATA: White count 16.9, hematocrit 34.8, platelet count 248. BUN 23, creatinine 1.4. PHYSICAL EXAMINATION: General: He is awake and alert. He is in no acute distress. Vital Signs: T-max 100.2. Blood pressure 122/69. Pulse 97, regular. Respirations 18 per minute. ENT: Sclerae anicteric. Poor dentition. Heart Sounds: S1, S2. Lungs: Clear bilaterally. No rhonchi, rales, or wheezing. Abdomen: Soft. No tenderness elicited. Extremities: Patient is status post left transmetatarsal amputation. He has a healed plantar ulcer which does not appear to be infected. Examination of the right foot, there is an approximately 2-cm diameter ulceration present on the plantar aspect of the foot. There is granulation tissue. No expressible pus. There is some serous drainage noted on the dressing. There is slight surrounding erythema and swelling. IMPRESSION: 1. Infected right plantar ulcer. 2. Status post incision and drainage, right foot ulcer. 3. Insulin-dependent diabetes mellitus. Pending wound culture results, empiric antibiotic coverage with vancomycin and Zosyn. Surgical evaluation. Will follow. Thank you for the kind referral. JOANNA VARGHESE M.D. [id number]
[2017-01-03] MEDS: INSULIN DETEMIR 100 UNITS/ML MDV SQ SCH (21:42)
[2017-01-03] MEDS: ATORVASTATIN CA 20 MG TABLET (FP) PO SCH (21:42)
[2017-01-04] MEDS ORDERED: PT OWN MED DRAWER 7, Y5N ONE ×3 (01:16→16:42)
[2017-01-04] MEDS: PIPERACILLIN/TAZOB 2.25 GM 2.25 GM in SODIUM CHLORIDE 50 ML IVPB SCH ×3 (01:19→17:04)
[2017-01-04] MEDS ORDERED: INSULIN (NOVOLOG) ASPART 100 UNITS/ML 10ML VIAL ONE ×2 (06:27→12:17)
[2017-01-04] MEDS: INSULIN SLIDING SCALE (NOVOLOG) 1 VIAL SQ SCH ×4 (06:42→22:05)
[2017-01-04 07:49] LABS: ANION GAP 8 (8-16); CALCIUM 8.8 mg/dL (8.5-10.1); CO2 26 mmol/L (21-32); GLUCOSE,RANDOM 179 mg/dL (74-106)
[2017-01-04 07:50] LABS: CREATININE 1.1 mg/dL (0.7-1.3)
[2017-01-04] MEDS: ASPIRIN COATED 81 MG TABLET.EC PO SCH (09:44)
[2017-01-04] MEDS: TAMSULOSIN HCL 0.4 MG CAP.ER.24H (FP) PO SCH (09:44)
[2017-01-04] MEDS: BICALUTAMIDE 50 MG TABLET (FP) PO SCH (09:44)
[2017-01-04] MEDS: amLODIPine BESYLATE 5 MG TABLET (FP) PO SCH (09:44)
[2017-01-04] MEDS: METOPROLOL SUCCINATE 25 MG TAB.SR.24H (FP) PO SCH (09:44)
--- NOTE | 2017-01-04 10:34 | PN ---
Progress Note (short form) - Note Progress Note: Podiatry F/U: Seen and evaluated at bedside, NAD. Pain improved to R foot, s/p bedside incision and drainage R foot. Currently afebrile, VSS. Generally feels better. SMITHA: R foot: plantar midfoot Charcot ulcer with strong granular base, hyperkeratotic borders, no purulence expressed on palpation of wound, no tunnelling/probing, no soft tissue crepitus, no periwound erythema, no ascending cellulitis, no signs of active infection. Minimal tenderness to palpation. L foot: lateral midfoot DM ulcer with strong granular base, hyperkeratotic borders, soft tissue coverage over plantar ligament, no probing to bone, no purulent drainage, no fluctuance, no periwound erythema, no ascending cellulitis , no signs of active infection. Minimal tenderness to palpation. WBC: 12.4 Wound Cx: enterococcus/Group D Strep, staph coag negative, GNB Imp: 56 year old IDDM M with R charcot midfoot ulcer, s/p bedside I&D of abscess ; L foot DFU 1. Excisional debridement of bilateral DM ulcers to subcutaneous tissue using sterile scissors. No deep/superficial purulence noted. 2. No clinical signs of deep space infection currently. White count improved. Unfortunately, patient cannot obtain MRI due to radiation pellets. 3. Continue local wound care Rx with santyl. 4. Upon discharge, will f/u with me in [facility] [place] 01/11. Lisa Byrd DPM
--- NOTE | 2017-01-04 12:48 | PN ---
Progress Note, Physician History of Present Illness: Pt seen and examined at bedside. He is awake and alert. He denies shortness of breath. He overall feels well. - Current Medication List Current Medications: Active Medications Acetaminophen (Tylenol -) 650 mg PO Q6H PRN PRN Reason: FEVER OR PAIN Last Admin: 01/03/17 12:56 Dose: 650 mg Acetaminophen/Codeine Phosphate (Tylenol # 3 -) 1 tab PO Q6H PRN PRN Reason: PAIN Amlodipine Besylate (Norvasc -) 5 mg PO DAILY REPLACED BY [facility] Last Admin: 01/04/17 09:44 Dose: 5 mg Aspirin (Ecotrin -) 81 mg PO DAILY REPLACED BY [facility] Last Admin: 01/04/17 09:44 Dose: 81 mg Atorvastatin Calcium (Lipitor -) 20 mg PO HS REPLACED BY [facility] Last Admin: 01/03/17 21:42 Dose: 20 mg Bicalutamide (Casodex -) 50 mg PO DAILY REPLACED BY [facility] Last Admin: 01/04/17 09:44 Dose: 50 mg Piperacillin Sod/Tazobactam (Sod 2.25 gm/ Sodium Chloride) 50 mls @ 100 mls/hr IVPB Q8H-IV [facility] PRN Reason: Protocol Last Admin: 01/04/17 10:27 Dose: 100 mls/hr Vancomycin HCl 1,000 mg/ (Sodium Chloride) 250 mls @ 200 mls/hr IVPB DAILY@ 1300 REPLACED BY [facility] Last Admin: 01/03/17 12:56 Dose: 200 mls/hr Sodium Chloride (1/2 Normal Saline) 1,000 mls @ 42 mls/hr IV ASDIR REPLACED BY [facility] Last Admin: 01/03/17 13:22 Dose: 42 mls/hr Insulin Aspart (Novolog Vial Sliding Scale -) 1 vial SQ ACHS REPLACED BY [facility] PRN Reason: Protocol Last Admin: 01/04/17 12:38 Dose: 4 units Insulin Detemir (Levemir Vial) 45 units SQ HS REPLACED BY [facility] Last Admin: 01/03/17 21:42 Dose: 45 units Metoprolol Succinate (Toprol Xl -) 25 mg PO DAILY REPLACED BY [facility] Last Admin: 01/04/17 09:44 Dose: 25 mg Tamsulosin HCl (Flomax -) 0.4 mg PO DAILY@0830 REPLACED BY [facility] Last Admin: 01/04/17 09:44 Dose: 0.4 mg - Objective Vital Signs: Vital Signs Temperature 98.4 F 01/04/17 09:00 Pulse Rate 95 H 01/04/17 09:00 Respiratory Rate 18 01/04/17 09:00 Blood Pressure 127/78 01/04/17 09:00 O2 Sat by Pulse Oximetry (%) 97 01/04/17 09:00 Constitutional: Yes: Calm Eyes: Yes: Conjunctiva Clear HENT: Yes: Atraumatic Cardiovascular: Yes: S1, S2 Respiratory: Yes: CTA Bilaterally Gastrointestinal: Yes: Soft Genitourinary: Yes: WNL Musculoskeletal: Yes: Other (dressings in place on legs) Edema: No Wound/Incision: Yes: Dressing Dry and Intact Neurological: Yes: Oriented Psychiatric: Yes: Oriented Labs: CBC, BMP 01/02/17 05:45 01/04/17 05:35 Problem List - Problems (1) Diabetes mellitus Code(s): E11.9 - TYPE 2 DIABETES MELLITUS WITHOUT COMPLICATIONS Qualifiers: Diabetes mellitus type: type 2 Diabetes mellitus complication status: with hyperglycemia Diabetes mellitus long term care social worker insulin use: with long term care social worker use Qualified Code(s): E11.65 - Type 2 diabetes mellitus with hyperglycemia ; Z79.4 - termite exterminator helper (current) 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 (2) Foot ulcer Code(s): L97.509 - NON-PRESSURE CHRONIC ULCER OTH PRT UNSP FOOT W UNSP SEVERITY Qualifiers: Laterality: right Non-pressure ulcer stage: with fat layer exposed Qualified Code(s): L97.512 - Non-pressure chronic ulcer of other part of right foot with fat layer exposed (3) Chronic kidney disease (CKD) Code(s): N18.9 - CHRONIC KIDNEY DISEASE, UNSPECIFIED Qualifiers: Chronic kidney disease stage: stage 3 (moderate) Qualified Code(s): N18.3 - Chronic kidney disease, stage 3 (moderate) (4) HTN (hypertension) Code(s): I10 - ESSENTIAL (PRIMARY) HYPERTENSION Qualifiers: Assessment/Plan Current Medications Generic Name Dose Route Start Last Admin Trade Name Freq PRN Reason Stop Dose Admin Acetaminophen 650 mg 01/01/17 07:26 01/03/17 12:56 Tylenol - PO 650 mg Q6H PRN Administration FEVER OR PAIN Acetaminophen/Codeine Phosphate 1 tab 01/01/17 13:43 Tylenol # 3 - PO Q6H PRN PAIN Amlodipine Besylate 5 mg 01/01/17 10:00 01/04/17 09:44 Norvasc - PO 5 mg DAILY [facility] Administration Aspirin 81 mg 01/01/17 10:00 01/04/17 09:44 Ecotrin - PO 81 mg DAILY [facility] Administration Atorvastatin Calcium 20 mg 01/01/17 22:00 01/03/17 21:42 Lipitor - PO 20 mg HS [facility] Administration Bicalutamide 50 mg 01/01/17 10:00 01/04/17 09:44 Casodex - PO 50 mg DAILY [facility] Administration Piperacillin Sod/Tazobactam 50 mls @ 100 mls/hr 01/01/17 12:00 01/04/17 10:27 Sod 2.25 gm/ Sodium Chloride IVPB 100 mls/hr Q8H-IV [facility] Administration Protocol Vancomycin HCl 1,000 mg/ 250 mls @ 200 mls/hr 01/01/17 13:00 01/03/17 12:56 Sodium Chloride IVPB 200 mls/hr DAILY@1300 [facility] Administration Sodium Chloride 1,000 mls @ 42 mls/hr 01/03/17 13:16 01/03/17 13:22 1/2 Normal Saline IV 42 mls/hr ASDIR [facility] Administration Insulin Aspart 1 vial 01/01/17 11:00 01/04/17 12:38 Novolog Vial Sliding Scale - SQ 4 units ACHS [facility] Administration Protocol Insulin Detemir 45 units 01/01/17 22:00 01/03/17 21:42 Levemir Vial SQ 45 units HS [facility] Administration Metoprolol Succinate 25 mg 01/01/17 13:00 01/04/17 09:44 Toprol Xl - PO 25 mg DAILY [facility] Administration Tamsulosin HCl 0.4 mg 01/01/17 08:30 01/04/17 09:44 Flomax - PO 0.4 mg DAILY@0830 [facility] Administration Impression 1. CKD with acute component now improving 2. cellulitis 3. HTN 4. DM 5. proteinuria 6. hyperlipidemia Plan - renal function is stable - can stop fluids - please send pt to my office after discharge - will check ua as outpt, he does not want any more inpatient testing - abs per ID - cont wound care - will follow PRN Dr Walter
[2017-01-04] MEDS: VANCOMYCIN 1,000 MG in SODIUM CHLORIDE 250 ML IVPB SCH (13:01)
[2017-01-04] MEDS: SODIUM CHLORIDE 0.45% 1,000 ML IV SCH (13:42)
[2017-01-04 17:59] VITALS: PULSE 78
--- NOTE | 2017-01-04 19:36 | PN ---
Progress Note, Physician Chief Complaint: ASLEEP, CHART REVIEWED - Current Medication List Current Medications: Active Medications Acetaminophen (Tylenol -) 650 mg PO Q6H PRN PRN Reason: FEVER OR PAIN Last Admin: 01/03/17 12:56 Dose: 650 mg Acetaminophen/Codeine Phosphate (Tylenol # 3 -) 1 tab PO Q6H PRN PRN Reason: PAIN Amlodipine Besylate (Norvasc -) 5 mg PO DAILY [facility] Last Admin: 01/04/17 09:44 Dose: 5 mg Aspirin (Ecotrin -) 81 mg PO DAILY [facility] Last Admin: 01/04/17 09:44 Dose: 81 mg Atorvastatin Calcium (Lipitor -) 20 mg PO HS [facility] Last Admin: 01/03/17 21:42 Dose: 20 mg Bicalutamide (Casodex -) 50 mg PO DAILY [facility] Last Admin: 01/04/17 09:44 Dose: 50 mg Piperacillin Sod/Tazobactam (Sod 2.25 gm/ Sodium Chloride) 50 mls @ 100 mls/hr IVPB Q8H-IV [facility] PRN Reason: Protocol Last Admin: 01/04/17 17:04 Dose: 100 mls/hr Vancomycin HCl 1,000 mg/ (Sodium Chloride) 250 mls @ 200 mls/hr IVPB DAILY@ 1300 [facility] Last Admin: 01/04/17 13:01 Dose: 200 mls/hr Sodium Chloride (1/2 Normal Saline) 1,000 mls @ 42 mls/hr IV ASDIR [facility] Last Admin: 01/04/17 13:42 Dose: Not Given Insulin Aspart (Novolog Vial Sliding Scale -) 1 vial SQ ACHS [facility] PRN Reason: Protocol Last Admin: 01/04/17 17:14 Dose: 6 units Insulin Detemir (Levemir Vial) 45 units SQ HS [facility] Last Admin: 01/03/17 21:42 Dose: 45 units Metoprolol Succinate (Toprol Xl -) 25 mg PO DAILY [facility] Last Admin: 01/04/17 09:44 Dose: 25 mg Tamsulosin HCl (Flomax -) 0.4 mg PO DAILY@0830 [facility] Last Admin: 01/04/17 09:44 Dose: 0.4 mg - Objective Vital Signs: Vital Signs Temperature 99.0 F 01/04/17 17:56 Pulse Rate 78 01/04/17 17:56 Respiratory Rate 18 01/04/17 17:56 Blood Pressure 145/84 01/04/17 17:56 O2 Sat by Pulse Oximetry (%) 97 01/04/17 09:00 Constitutional: Yes: No Distress Eyes: Yes: WNL HENT: Yes: WNL Neck: Yes: WNL Cardiovascular: Yes: WNL Respiratory: Yes: WNL Gastrointestinal: Yes: WNL Genitourinary: Yes: WNL Musculoskeletal: Yes: Muscle Weakness Extremities: Yes: Deformity Edema: Yes Edema: LLE: Trace, RLE: Trace Integumentary: Yes: Venous Stasis Changes Wound/Incision: Yes: Dressing Dry and Intact, Unapproximated Neurological: Yes: Pre-Existing Deficit, Unsteady Gait ...Motor Strength: LLE, RLE Psychiatric: Yes: Other Labs: CBC, BMP 01/02/17 05:45 01/04/17 05:35 Problem List - Problems (1) Cellulitis of right foot Code(s): L03.115 - CELLULITIS OF RIGHT LOWER LIMB (2) Diabetes mellitus Code(s): E11.9 - TYPE 2 DIABETES MELLITUS WITHOUT COMPLICATIONS Qualifiers: Diabetes mellitus type: type 2 Diabetes mellitus complication status: with hyperglycemia Diabetes mellitus work force advisor insulin use: with retirement use Qualified Code(s): E11.65 - Type 2 diabetes mellitus with hyperglycemia ; Z79.4 - master merchandiser (current) 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 (3) Foot ulcer Code(s): L97.509 - NON-PRESSURE CHRONIC ULCER OTH PRT UNSP FOOT W UNSP SEVERITY Qualifiers: Laterality: right Non-pressure ulcer stage: with fat layer exposed Qualified Code(s): L97.512 - Non-pressure chronic ulcer of other part of right foot with fat layer exposed (4) PVD (peripheral vascular disease) Code(s): I73.9 - PERIPHERAL VASCULAR DISEASE, UNSPECIFIED (5) Abscess of plantar aspect of foot Code(s): L02.619 - CUTANEOUS ABSCESS OF UNSPECIFIED FOOT (6) Acute gastroenteritis Code(s): K52.9 - NONINFECTIVE GASTROENTERITIS AND COLITIS, UNSPECIFIED (7) Acute renal failure Code(s): N17.9 - ACUTE KIDNEY FAILURE, UNSPECIFIED (8) Cellulitis of left foot Code(s): L03.116 - CELLULITIS OF LEFT LOWER LIMB (9) Chronic kidney disease (CKD) Code(s): N18.9 - CHRONIC KIDNEY DISEASE, UNSPECIFIED Qualifiers: Chronic kidney disease stage: stage 3 (moderate) Qualified Code(s): N18.3 - Chronic kidney disease, stage 3 (moderate) (10) Diabetes 1.5, managed as type 2 Code(s): E13.9 - OTHER SPECIFIED DIABETES MELLITUS WITHOUT COMPLICATIONS (11) Fever Code(s): R50.9 - FEVER, UNSPECIFIED (12) Foot infection Code(s): L08.9 - LOCAL INFECTION OF THE SKIN AND SUBCUTANEOUS TISSUE, UNSP (13) Hyperglycemia Code(s): R73.9 - HYPERGLYCEMIA, UNSPECIFIED (14) Uncontrolled diabetes mellitus Code(s): E11.65 - TYPE 2 DIABETES MELLITUS WITH HYPERGLYCEMIA Qualifiers: Diabetes mellitus complication detail: with other skin complication (15) IDDM (insulin dependent diabetes mellitus) Code(s): E11.9 - TYPE 2 DIABETES MELLITUS WITHOUT COMPLICATIONS Z79.4 - MEDICAL TRANSPORT SPECIALIST (CURRENT) USE OF INSULIN (16) Osteomyelitis Code(s): M86.9 - OSTEOMYELITIS, UNSPECIFIED Qualifiers: Osteomyelitis type: other chronic Osteomyelitis location: multiple sites Qualified Code(s): M86.69 - Other chronic osteomyelitis, multiple sites Assessment/Plan BEDSIDE DEBRIDEMENT OF LOWER EXTREMITY WOUNDS DONE BY PODIATRY AND APPRECIATED. IV ABX AWAITING SENSITIVITY TO CULTURES SNF DISCUSSED
[2017-01-04] MEDS: ATORVASTATIN CA 20 MG TABLET (FP) PO SCH (21:37)
[2017-01-04] MEDS: INSULIN DETEMIR 100 UNITS/ML MDV SQ SCH (21:37)
[2017-01-05] MEDS ORDERED: PT OWN MED DRAWER 7, Y5N ONE ×2 (01:37→08:42)
[2017-01-05] MEDS: PIPERACILLIN/TAZOB 2.25 GM 2.25 GM in SODIUM CHLORIDE 50 ML IVPB SCH ×2 (01:40→09:07)
[2017-01-05] MEDS ORDERED: INSULIN (NOVOLOG) ASPART 100 UNITS/ML 10ML VIAL ONE (06:18)
[2017-01-05] MEDS: INSULIN SLIDING SCALE (NOVOLOG) 1 VIAL SQ SCH ×2 (06:28→12:14)
[2017-01-05 08:08] LABS: ANION GAP 12 (8-16); CO2 24 mmol/L (21-32); CREATININE 1.2 mg/dL (0.7-1.3); GLUCOSE,RANDOM 268 mg/dL (74-106)
[2017-01-05] MEDS: BICALUTAMIDE 50 MG TABLET (FP) PO SCH (09:07)
[2017-01-05] MEDS: TAMSULOSIN HCL 0.4 MG CAP.ER.24H (FP) PO SCH (09:08)
[2017-01-05] MEDS: amLODIPine BESYLATE 5 MG TABLET (FP) PO SCH (09:08)
[2017-01-05] MEDS: ASPIRIN COATED 81 MG TABLET.EC PO SCH (09:08)
[2017-01-05] MEDS: METOPROLOL SUCCINATE 25 MG TAB.SR.24H (FP) PO SCH (09:08)
[2017-01-05 09:16] VITALS: BP 139/78; TEMP 98
--- NOTE | 2017-01-05 11:07 | DS ---
Physical Examination Vital Signs: Vital Signs Temperature 98 F 01/05/17 09:15 Pulse Rate 78 01/05/17 09:15 Respiratory Rate 16 01/05/17 09:15 Blood Pressure 139/78 01/05/17 09:15 O2 Sat by Pulse Oximetry (%) 95 01/04/17 21:00 Constitutional: Yes: No Distress Eyes: Yes: WNL HENT: Yes: WNL Neck: Yes: WNL Cardiovascular: Yes: WNL Respiratory: Yes: WNL Gastrointestinal: Yes: WNL Renal/: Yes: WNL Musculoskeletal: Yes: Muscle Pain Extremities: Yes: Deformity Edema: No Peripheral Pulses WNL: Yes Integumentary: Yes: Pressure Ulcer, Rash, Other Wound/Incision: Yes: Dressing Dry and Intact, Unapproximated Neurological: Yes: Pre-Existing Deficit, Weakness ...Motor Strength: LLE, RLE Psychiatric: Yes: Other Labs: CBC, BMP 01/05/17 05:35 Discharge Summary Reason For Visit: FOOT ULCER, CELLULITIS OF RIGHT FOOT Current Active Problems Cellulitis of right foot (Acute) Diabetes mellitus (Acute) Foot ulcer (Acute) PVD (peripheral vascular disease) (Chronic) Procedures: Principal: labs/cx Other Procedures: xrays Hospital Course: admitted and wound debridement done by dr jones, iv abx, cultures reviewed Condition: Improved - Instructions Diet, Activity, Other Instructions: genesis jones appt tuesday of every week for 4 weeks Referrals: Darren Carr [Primary Care Provider] - Disposition: VNS/HOME HEALTH CARE - Home Medications Comprehensive Discharge Medication List: Ambulatory Orders Atorvastatin Calcium 40 mg PO HS 08/10/16 Acetaminophen [Tylenol .Regular Strength -] 650 mg PO Q6H PRN #0 tablet Amlodipine Besylate 5 mg PO DAILY 01/01/17 Aspirin [ASA -] 81 mg PO DAILY 01/01/17 Bicalutamide 50 mg PO DAILY 01/01/17 Insulin Aspart [Novolog Flexpen] 18 units SQ TID 01/01/17 Insulin Degludec [Tresiba Flextouch U-100] 45 units SQ HS 01/01/17 Metoprolol Succinate [Toprol XL -] 25 mg PO DAILY 01/01/17 Tamsulosin HCl [Flomax] 0.4 mg PO DAILY 01/01/17
--- NOTE | 2017-01-05 11:19 | PN ---
Progress Note, Physician History of Present Illness: No c/o foot pain No reported wound drainage No fever/ chills - Current Medication List Current Medications: Active Medications Acetaminophen (Tylenol -) 650 mg PO Q6H PRN PRN Reason: FEVER OR PAIN Last Admin: 01/03/17 12:56 Dose: 650 mg Acetaminophen/Codeine Phosphate (Tylenol # 3 -) 1 tab PO Q6H PRN PRN Reason: PAIN Amlodipine Besylate (Norvasc -) 5 mg PO DAILY [facility] Last Admin: 01/05/17 09:08 Dose: 5 mg Aspirin (Ecotrin -) 81 mg PO DAILY [facility] Last Admin: 01/05/17 09:08 Dose: 81 mg Atorvastatin Calcium (Lipitor -) 20 mg PO HS [facility] Last Admin: 01/04/17 21:37 Dose: 20 mg Bicalutamide (Casodex -) 50 mg PO DAILY [facility] Last Admin: 01/05/17 09:07 Dose: 50 mg Piperacillin Sod/Tazobactam (Sod 2.25 gm/ Sodium Chloride) 50 mls @ 100 mls/hr IVPB Q8H-IV [facility] PRN Reason: Protocol Last Admin: 01/05/17 09:07 Dose: 100 mls/hr Vancomycin HCl 1,000 mg/ (Sodium Chloride) 250 mls @ 200 mls/hr IVPB DAILY@ 1300 [facility] Last Admin: 01/04/17 13:01 Dose: 200 mls/hr Sodium Chloride (1/2 Normal Saline) 1,000 mls @ 42 mls/hr IV ASDIR [facility] Last Admin: 01/04/17 13:42 Dose: Not Given Insulin Aspart (Novolog Vial Sliding Scale -) 1 vial SQ [facility] PRN Reason: Protocol Last Admin: 01/05/17 06:28 Dose: 6 units Insulin Detemir (Levemir Vial) 45 units SQ HS [facility] Last Admin: 01/04/17 21:37 Dose: 45 units Metoprolol Succinate (Toprol Xl -) 25 mg PO DAILY [facility] Last Admin: 01/05/17 09:08 Dose: 25 mg Tamsulosin HCl (Flomax -) 0.4 mg PO DAILY@0830 [facility] Last Admin: 01/05/17 09:08 Dose: 0.4 mg - Objective Vital Signs: Vital Signs Temperature 98 F 01/05/17 09:15 Pulse Rate 78 01/05/17 09:15 Respiratory Rate 16 01/05/17 09:15 Blood Pressure 139/78 01/05/17 09:15 O2 Sat by Pulse Oximetry (%) 95 01/04/17 21:00 Constitutional: Yes: No Distress Eyes: Yes: Conjunctiva Clear Cardiovascular: Yes: Regular Rate and Rhythm, S1, S2 Respiratory: Yes: CTA Bilaterally Gastrointestinal: Yes: Normal Bowel Sounds, Soft. No: Tenderness Extremities: Yes: Other (R plantar ulcer no drainage or surroudind erythema) Labs: CBC, BMP 01/05/17 05:35 Assessment/Plan Infected R plantar ulcer -resolved S/P I&D R foot ulcer D/C antibiotics Follow up wound care center
[2017-01-05 11:51] LABS: MCHC 34.3 g/dl (32.0-35.9); MEAN CELL VOLUME 75.9 fl (80-96); MEAN PLT VOLUME 9.1 fl (7.5-11.1); RDW 14.9 % (11.9-15.9); WHITE BLOOD COUNT 9.1 K/mm3 (4.0-10.0)
[2017-01-05 13:27] LABS: PLATELET COMMENT2 NO CLOTTING DETECTED; PLATELET ESTIMATE ADEQUATE (NORMAL)
== END 2017-01-05 13:10 | disposition home health service (06) | DRG 623 ==
LOC: JER 20:20 → JERBED 01-01 04:42 → UNDOADMIN 01-01 05:40 → J4S 01-01 07:05
PROVIDERS: ADMIT Family Medicine; ATTEND Family Medicine
PROC: 0JBQ0ZZ Excision of Right Foot Subcutaneous Tissue and Fascia, Open Approach (ICD-10-PCS; principal; 2017-01-04)
PROC: 0JBR0ZZ Excision of Left Foot Subcutaneous Tissue and Fascia, Open Approach (ICD-10-PCS; 2017-01-04)
DX: E11.621 Type 2 diabetes mellitus with foot ulcer (principal); L03.115 Cellulitis of right lower limb; E87.1 Hypo-osmolality and hyponatremia; N17.9 Acute kidney failure, unspecified; E78.5 Hyperlipidemia, unspecified; E11.51 Type 2 diabetes mellitus with diabetic peripheral angiopathy without gangrene; E11.65 Type 2 diabetes mellitus with hyperglycemia; I12.9 Hypertensive chronic kidney disease with stage 1 through stage 4 chronic kidney disease, or unspecified chronic kidney disease; E11.22 Type 2 diabetes mellitus with diabetic chronic kidney disease; N18.3 Chronic kidney disease, stage 3 (moderate); Z79.4 Long term (current) 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; Z87.891 Personal history of nicotine dependence
CPT/HCPCS: 36415; 71010-TC; 73630-TC-RT; 80048; 80053; 80061; 82570; 83036; 83605; 83721; 85025; 85027; 85651; 86140; 87040; 87070; 87186; 87205; 93005; 93010; 99283-25

== ENCOUNTER 2017-07-08 10:54 | Inpatient (IN) | payer OTHER ==
[2017-07-08] MEDS ORDERED: SODIUM CHLORIDE 1,000 ML IV ONE ×2 (11:56→14:55)
--- NOTE | 2017-07-08 11:56 | PDOC ---
History of Present Illness - General History Source: Patient Exam Limitations: No Limitations - History of Present Illness Initial Comments: 07/08/17 16:28 The patient is a 56 year old male, with a significant past medical history of hypertension, hyperlipidemia, diabetes(insulin-dependent), diabetic foot ulcers , prostate cancer(seed implants), who presents to the emergency department complaining of nausea and vomiting since yesterday. Patient reports his emesis was red in color, but denies eating or drinking anything red. Patient states he is dehydrated. He reports dysuria and increased urinary frequency, but denies any hematuria or urgency. He denies any abdominal pain, diarrhea, or constipation. He denies any fever, chills, headache, or dizziness. He denies any chest pain, shortness of breath, diaphoresis, or palpitations. Patient reports he is compliant with his medications and has never been in DKA. Allergies: NKDA Past Surgical History: Left foot metatarsal amputation, Right toe amputation x2 , Left leg stent Social History: Former smoker. Former ETOH use. No recreational drug use, PCP: Dr. Carr <Elba Gee - Last Filed: 07/08/17 16:28> <Regan Brownlee - Last Filed: 07/12/17 07:10> - General Chief Complaint: Nausea/Vomiting Stated Complaint: VOMITING Time Seen by Provider: 07/08/17 11:08 Past History <Elba Gee - Last Filed: 07/08/17 16:28> - Past Medical History Anemia: No Asthma: No Cancer: Yes (Prostate (s/p seed implants July 02, 2016)) Cardiac Disorders: No CVA: No COPD: No CHF: No Dementia: No Diabetes: Yes (IDDM, diabetic foot ulcers) GI Disorders: No Disorders: No HTN: Yes Hypercholesterolemia: Yes Liver Disease: No Seizures: No Thyroid Disease: No - Surgical History Abdominal Surgery: No Appendectomy: No Cardiac Surgery: No Cholecystectomy: No Lung Surgery: No Neurologic Surgery: No Orthopedic Surgery: Yes (left foot metatarsal amp, right toe ampsx2, left leg stent) - Suicide/Smoking/Psychosocial Hx Smoking Status: Yes (quit smoking 9 days ago) Smoking History: Unknown if ever smoked Have you smoked in the past 12 months: No Number of Cigarettes Smoked Daily: 15 If you are a former smoker, when did you quit?: 2012 Information on smoking cessation initiated: No 'Breaking Loose' booklet given: 04/04/13 Hx Alcohol Use: No Drug/Substance Use Hx: No Substance Use Type: None Hx Substance Use Treatment: No <Regan Brownlee - Last Filed: 07/12/17 07:10> - Past Medical History Allergies/Adverse Reactions: Allergies Allergy/AdvReac Type Severity Reaction Status Date / Time No Known Drug Allergies Allergy Verified 07/08/17 11:18 Home Medications: Ambulatory Orders Atorvastatin Calcium 40 mg PO HS 08/10/16 Amlodipine Besylate 5 mg PO DAILY 01/01/17 Aspirin [ASA -] 81 mg PO DAILY 01/01/17 Bicalutamide 50 mg PO DAILY 01/01/17 Insulin Aspart [Novolog Flexpen] 12 units SQ TID 01/01/17 Insulin Degludec [Tresiba Flextouch U-100] 45 units SQ HS 01/01/17 Metoprolol Succinate [Toprol XL -] 25 mg PO DAILY 01/01/17 Tamsulosin HCl [Flomax -] 0.4 mg PO DAILY 01/01/17 Review of Systems - Review of Systems Able to Perform ROS?: Yes Comments:: 07/08/17 16:28 CONSTITUTIONAL: No reported: Fever, Chills, Diaphoresis, Generalized Weakness, Malaise, Loss of Appetite HEENT: No reported: Rhinorrhea, Nasal Congestion, Throat Pain, Throat Swelling, Difficulty Swallowing, Mouth Swelling, Ear Pain, Eye Pain, Visual Changes CARDIOVASCULAR: No reported: Chest Pain, Syncope, Palpitations, Irregular Heart Rate, Lightheadedness, Peripheral Edema RESPIRATORY: No reported: Cough, Shortness of Breath, SOB with Exertion, Orthopnea, Wheezing , Stridor, Hemoptysis GASTROINTESTINAL: Reported: Nausea, Vomiting, Dehydration No reported: Abdominal pain, Abdominal Distension, Diarrhea, Constipation, Melena, Hematochezia GENITOURINARY: Reported: Dysuria, Frequency No reported: Urgency, Hesitancy, Flank Pain, Genital Pain SKIN: No reported: Rash, Itching, Pallor HEMEATOLOGIC/IMMUNOLOGIC: No reported: Easy Bleeding, Easy Bruising, Lymphadenopathy, Frequent infections ENDOCRINE: No reported: Unexplained Weight Gain, Unexplained Weight Loss, Heat Intolerance , Cold Intolerance NEUROLOGIC: No reported: Headache, Focal Weakness, Paresthesias, Vertigo, Lightheadedness, Unsteady Gait, Seizure, Mental Status Changes, Incontinence <Elba Gee - Last Filed: 07/08/17 16:28> *Physical Exam - Vital Signs Last Vital Signs Temp Pulse Resp BP Pulse Ox 100.2 F H 111 H 20 176/92 95 07/08/17 16:03 07/08/17 15:58 07/08/17 15:58 07/08/17 15:58 07/08/17 15:58 - Physical Exam Comments: 07/08/17 16:29 GENERAL: The patient is awake, alert, and fully oriented, Nontoxic - in no acute distress. HEAD: Normocephalic, atraumatic. EYES: extraocular movements intact, sclera anicteric, conjunctiva clear. ENT: Dry mucous membranes. Normal voice. NECK: Normal range of motion, supple LUNGS: Breath sounds equal, clear to auscultation bilaterally. No wheezes, no rhonchi, no rales. HEART: Tachycardic. Regular rhythm, without murmur, rub or gallop. ABDOMEN: Soft, nontender, normoactive bowel sounds. No guarding, no rebound.No CVA tenderness EXTREMITIES: Normal range of motion, no edema. No clubbing or cyanosis. No cords , erythema, or tenderness. NEUROLOGICAL: No facial asymmetry, Normal speech, PSYCH: Normal mood, normal affect. SKIN: Warm, Dry, normal turgor, +ulcer plantar aspect of r foot with clean margins. wound on L toe and L heel with some dried blood, no erythema, warmth or purlent discharge. <GerardRosaluis albertomaribelchris - Last Filed: 07/08/17 16:28> - Vital Signs Last Vital Signs Temp Pulse Resp BP Pulse Ox 98.6 F 110 H 18 177/95 100 07/08/17 11:09 07/08/17 11:09 07/08/17 11:09 07/08/17 11:09 07/08/17 11:09 <Regan Brownlee - Last Filed: 07/12/17 07:10> Heart Score/ECG Review - ECG Impressions Comment:: 07/08/17 12:55 Twelve-lead EKG was performed and reviewed by me. There is normal sinus rhythm with a rate of [address] Left axis deviation No ST changes suggestive of acute ischemia <Regan Brownlee - Last Filed: 07/12/17 07:10> ED Treatment Course - LABORATORY CBC & Chemistry Diagram: 07/08/17 13:01 07/08/17 13:01 - ADDITIONAL ORDERS Additional order review: Laboratory Results 07/08/17 07/08/17 07/08/17 13:01 13:01 13:01 VBG pH 7.35 POC VBG pCO2 39.8 D POC VBG pO2 34.8 Mixed VBG HCO3 21.4 Sodium 136 Potassium 4.8 Chloride 101 Carbon Dioxide 19 L D Anion Gap 16 BUN 24 H D Creatinine 1.6 H Creat Clearance w eGFR 44.62 Random Glucose 361 H* D Calcium 8.7 Total Bilirubin 0.7 AST 264 H D ALT 61 D Alkaline Phosphatase 159 H D Creatine Kinase 67704 H Creatine Kinase Index 0.6 CK-MB (CK-2) 94.946 H Troponin I < 0.02 Total Protein 8.0 Albumin 3.7 D Lipase 159 Acetone, Qual Negative 07/08/17 13:01 RBC 5.08 MCV 79.0 L MCHC 32.6 RDW 15.3 MPV 8.8 Neutrophils % 92.5 H Lymphocytes % 2.2 L D Monocytes % 5.0 Eosinophils % 0.0 D Basophils % 0.3 - Medications Given in the ED: ED Medications Discontinued Medications Generic Name Dose Route Start Last Admin Trade Name Freq PRN Reason Stop Dose Admin Sodium Chloride 1,000 mls @ 1,000 mls/hr 07/08/17 11:56 07/08/17 11:57 Normal Saline - IV 07/08/17 12:55 1,000 mls/hr .Q1H ONE Administration Ondansetron HCl 4 mg 07/08/17 11:57 07/08/17 12:10 Zofran Injection IVPB 07/08/17 11:58 4 mg ONCE ONE Administration <Elba Gee - Last Filed: 07/08/17 16:28> - LABORATORY CBC & Chemistry Diagram: 07/11/17 13:54 07/11/17 13:54 <Regan Brownlee - Last Filed: 07/12/17 07:10> Medical Decision Making - Medical Decision Making 07/08/17 12:08 56y M IDDM, diabeteic foot ulcers, pvd, prostate ca s/p seeding, htn, hl presents with complaint of vomitin gsince last night without associated abd pain , cp, sob, diaphoresis, diarrhea. on exam pt appears dry, and noted to be slightly tachycardic. no acute distress ddx includes gastiritis, acs, dka, uti will obtain blood work will give him fluids zofran for sypmtomatic releive vbg/acetones will reassess 07/08/17 14:49 pts labs reviewed noted for leukocytosis cr elevated to 1.6 with bun 24 up from baseline also noted for elevated CK / ckmb - unclera reason for elevated CK ?dehydration will continue to hydrate pt reassessed no abodminal pain /tenderness will admit the pt for further management and hydration and repeat albs case dw dr. tamika zavalauests admission to telemetry with cunsultation w/ dr. baker Case discussed in detail with admitting physician including history, physical exam and ancillary studies. Admitting physician has assumed care for the patient, will follow all pending diagnostics and will complete the evaluation and treatment. <Regan Brownlee - Last Filed: 07/12/17 07:10> *DC/Admit/Observation/Transfer - Attestations Scribe Attestion: 07/08/17 16:29 Documentation prepared by Elba Gee, acting as medical policy specialist for Regan Brownlee MD. <Elba Gee - Last Filed: 07/08/17 16:28> - Discharge Dispostion Admit: Yes <Regan Brownlee - Last Filed: 07/12/17 07:10> Diagnosis at time of Disposition: Dehydration, Elevated creatine kinase level Chronic kidney disease (CKD) Qualifiers: Chronic kidney disease stage: stage 3 (moderate) Qualified Code(s): N18.3 - Chronic kidney disease, stage 3 (moderate) Acute on chronic renal failure Qualifiers: Acute renal failure type: unspecified Chronic kidney disease stage: unspecified stage Qualified Code(s): N17.9 - Acute kidney failure, unspecified - Discharge Dispostion Condition at time of disposition: Stable
[2017-07-08] MEDS ORDERED: ONDANSETRON 4 MG/2 ML VIAL IVPB ONE (11:57)
[2017-07-08] MEDS ORDERED: ONDANSETRON 4 MG/2 ML VIAL ONE (11:58)
[2017-07-08 13:06] LABS: BASO % 0.3 % (0-2.0); HEMATOCRIT 40.2 % (35.4-49); HEMOGLOBIN 13.1 GM/dL (11.7-16.9); LYMPH % 2.2 % (8-40); MCH 25.8 pg (25.7-33.7); MCHC 32.6 g/dl (32.0-35.9); MEAN PLT VOLUME 8.8 fl (7.5-11.1); NEUT % 92.5 % (42.8-82.8); PLATELET COUNT 180 K/MM3 (134-434); RBC 5.08 M/mm3 (4.00-5.60); RDW 15.3 % (11.9-15.9); WHITE BLOOD COUNT 15.7 K/mm3 (4.0-10.0)
[2017-07-08 13:41] LABS: ALBUMIN 3.7 g/dl (3.4-5.0); ANION GAP 16 (8-16); BILIRUBIN,TOTAL 0.7 mg/dL (0.2-1.0); BLOOD UREA NITROGEN 24 mg/dL (7-18); CALCIUM 8.7 mg/dL (8.5-10.1); CHLORIDE 101 mmol/L (98-107); CO2 19 mmol/L (21-32); CREATININE 1.6 mg/dL (0.7-1.3); LIPASE 159 U/L (73-393); SGPT/ALT 61 U/L (12-78); SODIUM 136 mmol/L (136-145)
[2017-07-08 14:05] LABS: ALK PHOS 159 U/L (45-117)
[2017-07-08 14:06] LABS: VENOUS PC02 39.8 mmHg (38-52); VENOUS PH 7.35 (7.32-7.42); VENOUS PO2 34.8 mmHg (28-48)
[2017-07-08 14:11] LABS: GLUCOSE,RANDOM 361 mg/dL (74-106); POTASSIUM 4.8 mmol/L (3.5-5.1); SGOT/AST 264 U/L (15-37)
[2017-07-08 15:19] LABS: URINE APPEARANCE CLEAR; URINE BILIRUBIN NEGATIVE (NEGATIVE); URINE BLOOD 3+ (NEGATIVE); URINE COLOR YELLOW; URINE GLUCOSE (UA) 3+ (NEGATIVE); URINE KETONE TRACE (NEGATIVE); URINE LEUK ESTERASE NEGATIVE (NEGATIVE); URINE NITRITE NEGATIVE (NEGATIVE); URINE UROBILINOGEN NEGATIVE mg/dL (0.2-1.0)
[2017-07-08 15:24] LABS: URINE PROTEIN 2+ (NEGATIVE)
[2017-07-08 15:37] LABS: EPI CELLS RARE /HPF (FEW); URINE MUCUS RARE
--- NOTE | 2017-07-08 15:54 | HP ---
Admitting History and Physical - Primary Care Physician PCP: Nick Le - Admission Chief Complaint: WEAKNESS/ELEVATED CARDIAC ENZYMES History of Present Illness: 56 Y/O MALE WITH HISTORY OF UNCONTROLLED DIABETES WITH MULTIPLE AMPUTATIONS AND SKIN DEBRIDEMENTS FOR ULCERS AND OSTEOMYELITIS, CRI, HTN, LIPIDEMIA, BEDBOUND PRESENTS WITH FEVERS AND ELEVATED CARDIAC ENZYMES. 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: Peripheral Neuropathy, Other (IDDM) Cardiovascular: Yes: HTN, Hyperlipdemia, Other (peripheral vascular disease) Renal/: Yes: Renal Inusuff Musculoskeletal: Yes: Osteoarthritis Endocrine: Yes: Diabetes Mellitus (Insulin dependent) - Past Surgical History Past Surgical History: Yes: Amputation (lt tma, rt toes, prostate seed implant.) - Smoking History Smoking history: Unknown if ever smoked Have you smoked in the past 12 months: No Aproximately how many cigarettes per day: 15 If you are a former smoker, when did you quit?: 2013 - Alcohol/Substance Use Hx Alcohol Use: No - Social History History of Recent Travel: No Home Medications - Allergies Allergies/Adverse Reactions: Allergies Allergy/AdvReac Type Severity Reaction Status Date / Time No Known Drug Allergies Allergy Verified 07/08/17 11:18 - Home Medications Home Medications: Ambulatory Orders Atorvastatin Calcium 40 mg PO HS 08/10/16 Amlodipine Besylate 5 mg PO DAILY 01/01/17 Aspirin [ASA -] 81 mg PO DAILY 01/01/17 Bicalutamide 50 mg PO DAILY 01/01/17 Insulin Aspart [Novolog Flexpen] 12 units SQ TID 01/01/17 Insulin Degludec [Tresiba Flextouch U-100] 45 units SQ HS 01/01/17 Metoprolol Succinate [Toprol XL -] 25 mg PO DAILY 01/01/17 Tamsulosin HCl [Flomax -] 0.4 mg PO DAILY 01/01/17 Family Disease History - Family Disease History Family Disease History: Diabetes: Father Review of Systems - Review of Systems Constitutional: reports: Fever, Weakness Eyes: reports: No Symptoms HENT: reports: No Symptoms Neck: reports: No Symptoms Cardiovascular: reports: No Symptoms Respiratory: reports: No Symptoms Gastrointestinal: reports: No Symptoms Genitourinary: reports: Incontinence Musculoskeletal: reports: Muscle Weakness Integumentary: reports: Other Neurological: reports: Pre-Existing Deficit, Weakness Endocrine: reports: No Symptoms Hematology/Lymphatic: reports: No Symptoms Psychiatric: reports: No Symptoms Physical Examination Vital Signs: Vital Signs Temperature 98.6 F 07/08/17 11:09 Pulse Rate 110 H 07/08/17 11:09 Respiratory Rate 07/08/17 11:09 Blood Pressure 177/95 07/08/17 11:09 O2 Sat by Pulse Oximetry (%) 100 07/08/17 11:09 Constitutional: Yes: Mild Distress Eyes: Yes: WNL HENT: Yes: WNL Neck: Yes: WNL Cardiovascular: Yes: WNL Respiratory: Yes: WNL Gastrointestinal: Yes: WNL Renal/: Yes: Incontinence Extremities: Yes: Amputation, Deformity Edema: No Peripheral Pulses WNL: Yes Integumentary: Yes: Pressure Ulcer Wound/Incision: Yes: Dressing Dry and Intact Neurological: Yes: Pre-Existing Deficit ...Motor Strength: LLE, RLE Psychiatric: Yes: WNL Labs: CBC, BMP 07/08/17 13:01 07/08/17 13:01 Problem List - Problems (1) Acute on chronic renal failure Code(s): N17.9 - ACUTE KIDNEY FAILURE, UNSPECIFIED; N18.9 - CHRONIC KIDNEY DISEASE, UNSPECIFIED Qualifiers: Acute renal failure type: unspecified Chronic kidney disease stage: unspecified stage Qualified Code(s): N17.9 - Acute kidney failure, unspecified ; N18.9 - Chronic kidney disease, unspecified; N18.9 - Chronic kidney disease, unspecified (2) Dehydration Code(s): E86.0 - DEHYDRATION (3) Elevated creatine kinase level Code(s): R74.8 - ABNORMAL LEVELS OF OTHER SERUM ENZYMES (4) Abscess of plantar aspect of foot Code(s): L02.619 - CUTANEOUS ABSCESS OF UNSPECIFIED FOOT (5) Acute renal failure Code(s): N17.9 - ACUTE KIDNEY FAILURE, UNSPECIFIED (6) Chronic kidney disease (CKD) Code(s): N18.9 - CHRONIC KIDNEY DISEASE, UNSPECIFIED Qualifiers: Chronic kidney disease stage: stage 3 (moderate) Qualified Code(s): N18.3 - Chronic kidney disease, stage 3 (moderate) (7) Diabetes 1.5, managed as type 2 Code(s): E13.9 - OTHER SPECIFIED DIABETES MELLITUS WITHOUT COMPLICATIONS (8) Diabetes mellitus Code(s): E11.9 - TYPE 2 DIABETES MELLITUS WITHOUT COMPLICATIONS Qualifiers: Diabetes mellitus type: type 2 Diabetes mellitus complication status: with hyperglycemia Diabetes mellitus jail insulin use: with director long term care use Qualified Code(s): E11.65 - Type 2 diabetes mellitus with hyperglycemia (9) Uncontrolled diabetes mellitus Code(s): E11.65 - TYPE 2 DIABETES MELLITUS WITH HYPERGLYCEMIA Qualifiers: Diabetes mellitus type: type 2 Diabetes mellitus complication detail: with other circulatory complications (10) HTN (hypertension) Code(s): I10 - ESSENTIAL (PRIMARY) HYPERTENSION Qualifiers: (11) Hyperlipidemia Code(s): E78.5 - HYPERLIPIDEMIA, UNSPECIFIED Qualifiers: Hyperlipidemia type: Other hyperlipidemia Qualified Code(s): E78.4 - Other hyperlipidemia (12) Osteomyelitis Code(s): M86.9 - OSTEOMYELITIS, UNSPECIFIED Qualifiers: Osteomyelitis type: other chronic Osteomyelitis location: multiple sites Qualified Code(s): M86.69 - Other chronic osteomyelitis, multiple sites (13) PVD (peripheral vascular disease) Code(s): I73.9 - PERIPHERAL VASCULAR DISEASE, UNSPECIFIED Assessment/Plan CARDIAC ENZYME SERIES BLOOD AND URINE CX ID AND CARDIO CONSULT IVF TYLENOL FOR FEVERS SSI ADA DIABETES COMPLIANCE
[2017-07-08] MEDS ORDERED: ACETAMINOPHEN 325 MG TABLET (FP) ONE ×2 (17:01→23:45)
[2017-07-08] MEDS: ACETAMINOPHEN 325 MG TABLET (FP) PO PRN ×2 (17:07→23:47)
[2017-07-08] MEDS ORDERED: INSULIN (NOVOLOG) ASPART 100 UNITS/ML 10ML VIAL ONE ×2 (20:42→23:40)
[2017-07-08] MEDS: INSULIN SLIDING SCALE (NOVOLOG) 1 VIAL SQ SCH ×2 (20:47→23:38)
[2017-07-08] MEDS ORDERED: ATORVASTATIN CA 40 MG TABLET (FP) PO SCH (22:00)
[2017-07-08] MEDS ORDERED: INSULIN DETEMIR 100 UNITS/ML MDV SQ SCH (22:00)
[2017-07-08] MEDS ORDERED: ATORVASTATIN CA 40 MG TABLET (FP) ONE (23:14)
[2017-07-08] MEDS ORDERED: HEPARIN NA (PORCINE) 5,000 UNITS/ML 1ML VIAL ONE (23:14)
[2017-07-08] MEDS ORDERED: INSULIN DETEMIR 100 UNITS/ML MDV SQ ONE (23:15)
[2017-07-08] MEDS: INSULIN DETEMIR 100 UNITS/ML MDV SQ SCH (23:20)
[2017-07-08] MEDS: HEPARIN NA (PORCINE) 5,000 UNITS/ML 1ML VIAL SQ SCH (23:20)
[2017-07-09 00:57] VITALS: BMI 27.3
[2017-07-09 08:40] LABS: CHLORIDE 107 mmol/L (98-107); POTASSIUM 3.7 mmol/L (3.5-5.1); SODIUM 139 mmol/L (136-145)
[2017-07-09 09:03] LABS: ALK PHOS 129 U/L (45-117); ANION GAP 11 (8-16); BILIRUBIN,TOTAL 0.8 mg/dL (0.2-1.0); BLOOD UREA NITROGEN 29 mg/dL (7-18); CHOLESTEROL 136 mg/dL (50-200); CO2 21 mmol/L (21-32); GLUCOSE,RANDOM 198 mg/dL (74-106); HDL CHOLESTEROL 41 mg/dL (40-60); LDL CHOLESTEROL (ONLY SJRH) 75 mg/dL (5-100); SGPT/ALT 192 U/L (12-78); TOT PROT 6.7 g/dl (6.4-8.2); TRIGLYCERIDES 136 mg/dL (35-160)
[2017-07-09 09:06] LABS: SGOT/AST 780 U/L (15-37)
[2017-07-09] MEDS: TAMSULOSIN HCL 0.4 MG CAP.ER.24H (FP) PO SCH (09:30)
[2017-07-09] MEDS: ACETAMINOPHEN 325 MG TABLET (FP) PO PRN (10:54)
[2017-07-09] MEDS: ASPIRIN COATED 81 MG TABLET.EC PO SCH (10:56)
[2017-07-09] MEDS: HEPARIN NA (PORCINE) 5,000 UNITS/ML 1ML VIAL SQ SCH ×2 (10:56→22:39)
[2017-07-09] MEDS: METOPROLOL SUCCINATE 25 MG TAB.SR.24H (FP) PO SCH (10:56)
[2017-07-09] MEDS: amLODIPine BESYLATE 5 MG TABLET (FP) PO SCH (10:58)
[2017-07-09] MEDS: INSULIN SLIDING SCALE (NOVOLOG) 1 VIAL SQ SCH ×3 (11:06→22:38)
--- NOTE | 2017-07-09 13:17 | PN ---
Progress Note, Physician Chief Complaint: AWAKE ALERT NO DISTRESS - Current Medication List Current Medications: Active Medications Acetaminophen (Tylenol -) 650 mg PO Q6H PRN PRN Reason: BACK PAIN Last Admin: 07/09/17 10:54 Dose: 650 mg Amlodipine Besylate (Norvasc -) 5 mg PO DAILY [facility] Last Admin: 07/09/17 10:58 Dose: 5 mg Aspirin (Ecotrin -) 81 mg PO DAILY [facility] Last Admin: 07/09/17 10:56 Dose: 81 mg Atorvastatin Calcium (Lipitor -) 40 mg PO HS [facility] Last Admin: 07/08/17 23:20 Dose: 40 mg Heparin Sodium (Porcine) (Heparin -) 5,000 unit SQ BID [facility] Last Admin: 07/09/17 10:56 Dose: 5,000 unit Insulin Aspart (Novolog Vial Sliding Scale -) 1 vial SQ ACHS [facility]1983 PRN Reason: Protocol Last Admin: 07/09/17 11:06 Dose: 10 units Insulin Detemir (Levemir Vial) 45 units SQ HS [facility] Last Admin: 07/08/17 23:20 Dose: 45 unit Metoprolol Succinate (Toprol Xl -) 25 mg PO DAILY [facility] Last Admin: 07/09/17 10:56 Dose: 25 mg Tamsulosin HCl (Flomax -) 0.4 mg PO DAILY@0830 [facility] Last Admin: 07/09/17 09:30 Dose: 0.4 mg - Objective Vital Signs: Vital Signs Temperature 99.6 F 07/09/17 06:00 Pulse Rate 83 07/09/17 06:00 Respiratory Rate 20 07/09/17 06:00 Blood Pressure 120/73 07/09/17 06:00 O2 Sat by Pulse Oximetry (%) 95 07/09/17 06:00 Constitutional: Yes: No Distress Eyes: Yes: WNL HENT: Yes: WNL Neck: Yes: WNL Cardiovascular: Yes: WNL Respiratory: Yes: WNL Gastrointestinal: Yes: WNL Genitourinary: Yes: Incontinence Musculoskeletal: Yes: Muscle Weakness Extremities: Yes: Amputation, Deformity Edema: No Peripheral Pulses WNL: Yes Integumentary: Yes: Pressure Ulcer Wound/Incision: Yes: Dressing Dry and Intact Neurological: Yes: Pre-Existing Deficit, Unsteady Gait, Weakness ...Motor Strength: LLE, RLE Psychiatric: Yes: Other Labs: CBC, BMP 07/08/17 13:01 07/09/17 06:01 Problem List - Problems (1) Acute on chronic renal failure Code(s): N17.9 - ACUTE KIDNEY FAILURE, UNSPECIFIED; N18.9 - CHRONIC KIDNEY DISEASE, UNSPECIFIED Qualifiers: Acute renal failure type: unspecified Chronic kidney disease stage: unspecified stage Qualified Code(s): N17.9 - Acute kidney failure, unspecified ; N18.9 - Chronic kidney disease, unspecified; N18.9 - Chronic kidney disease, unspecified (2) Dehydration Code(s): E86.0 - DEHYDRATION (3) Elevated creatine kinase level Code(s): R74.8 - ABNORMAL LEVELS OF OTHER SERUM ENZYMES (4) Abscess of plantar aspect of foot Code(s): L02.619 - CUTANEOUS ABSCESS OF UNSPECIFIED FOOT (5) Acute renal failure Code(s): N17.9 - ACUTE KIDNEY FAILURE, UNSPECIFIED (6) Chronic kidney disease (CKD) Code(s): N18.9 - CHRONIC KIDNEY DISEASE, UNSPECIFIED Qualifiers: Chronic kidney disease stage: stage 3 (moderate) Qualified Code(s): N18.3 - Chronic kidney disease, stage 3 (moderate) (7) Diabetes 1.5, managed as type 2 Code(s): E13.9 - OTHER SPECIFIED DIABETES MELLITUS WITHOUT COMPLICATIONS (8) Diabetes mellitus Code(s): E11.9 - TYPE 2 DIABETES MELLITUS WITHOUT COMPLICATIONS Qualifiers: Diabetes mellitus type: type 2 Diabetes mellitus complication status: with hyperglycemia Diabetes mellitus fci insulin use: with fci use Qualified Code(s): E11.65 - Type 2 diabetes mellitus with hyperglycemia (9) Uncontrolled diabetes mellitus Code(s): E11.65 - TYPE 2 DIABETES MELLITUS WITH HYPERGLYCEMIA Qualifiers: Diabetes mellitus type: type 2 Diabetes mellitus complication detail: with other circulatory complications (10) HTN (hypertension) Code(s): I10 - ESSENTIAL (PRIMARY) HYPERTENSION Qualifiers: (11) Hyperlipidemia Code(s): E78.5 - HYPERLIPIDEMIA, UNSPECIFIED Qualifiers: Hyperlipidemia type: Other hyperlipidemia (12) Osteomyelitis Code(s): M86.9 - OSTEOMYELITIS, UNSPECIFIED Qualifiers: Osteomyelitis type: other chronic Osteomyelitis location: multiple sites Qualified Code(s): M86.69 - Other chronic osteomyelitis, multiple sites (13) PVD (peripheral vascular disease) Code(s): I73.9 - PERIPHERAL VASCULAR DISEASE, UNSPECIFIED Assessment/Plan CARDIAC ENZYME SERIES BLOOD AND URINE CX ID AND CARDIO CONSULT IVF TYLENOL FOR FEVERS SSI ADA DIABETES COMPLIANCE
--- NOTE | 2017-07-09 15:11 | PN ---
Progress Note (short form) - Note Progress Note: ID Consult dictated Sepsis syndrome Infected R plantar ulcer Hx MRSA Pending cultures, empiric zosyn/ vancomycin
--- NOTE | 2017-07-09 15:31 | CON.CARD ---
Consult Consult Specialty:: cardiology Referred by:: Rey Reason for Consultation:: Sepsis - History of Present Illness Chief Complaint: Generalized weakness, dehydration History of Present Illness: The patient is a 56-year-old obese man, with a history of diabetes, hypertension , hyperlipidemia, prostate cancer, status post seeding, peripheral vascular disease, bilateral toe amputations, admitted with nausea and vomiting and an infected right lower extremity ulcer. The patient is currently quite comfortable. Denies chest pains, shortness of breath, palpitations. Denied history of coronary artery disease and angina. 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: Peripheral Neuropathy, Other (IDDM) Cardio/Vascular: Yes: HTN, Hyperlipdemia, Other (peripheral vascular disease) Renal/: Yes: Renal Inusuff Musculoskeletal: Yes: Osteoarthritis Endocrine: Yes: Diabetes Mellitus (Insulin dependent) - Past Surgical History Past Surgical History: Yes: Amputation (lt tma, rt toes, prostate seed implant.) - Alcohol/Substance Use Hx Alcohol Use: No - Smoking History Smoking history: Unknown if ever smoked Have you smoked in the past 12 months: No Aproximately how many cigarettes per day: 15 If you are a former smoker, when did you quit?: 2013 - Social History Usual Living Arrangement: Other (with family) History of Recent Travel: No Home Medications - Allergies Allergies/Adverse Reactions: Allergies Allergy/AdvReac Type Severity Reaction Status Date / Time No Known Drug Allergies Allergy Verified 07/08/17 11:18 - Home Medications Home Medications: Ambulatory Orders Atorvastatin Calcium 40 mg PO HS 08/10/16 Amlodipine Besylate 5 mg PO DAILY 01/01/17 Aspirin [ASA -] 81 mg PO DAILY 01/01/17 Bicalutamide 50 mg PO DAILY 01/01/17 Insulin Aspart [Novolog Flexpen] 12 units SQ TID 01/01/17 Insulin Degludec [Tresiba Flextouch U-100] 45 units SQ HS 01/01/17 Metoprolol Succinate [Toprol XL -] 25 mg PO DAILY 01/01/17 Tamsulosin HCl [Flomax -] 0.4 mg PO DAILY 01/01/17 Family Disease History - Family Disease History Family Disease History: Diabetes: Father Review of Systems - Review of Systems Constitutional: reports: Lethargy Eyes: reports: No Symptoms HENT: reports: No Symptoms Neck: reports: No Symptoms Cardiovascular: reports: No Symptoms Respiratory: reports: No Symptoms Gastrointestinal: reports: No Symptoms Genitourinary: reports: No Symptoms Breasts: reports: No Symptoms Reported Musculoskeletal: reports: Back Pain, Other (Bilateral lower extremity ulcers) Integumentary: reports: Lesions, Wound Neurological: reports: No Symptoms Endocrine: reports: No Symptoms Hematology/Lymphatic: reports: No Symptoms Psychiatric: reports: No Symptoms Vital Signs: Vital Signs Temperature 98.2 F 07/09/17 14:00 Pulse Rate 89 07/09/17 14:00 Respiratory Rate 20 07/09/17 14:00 Blood Pressure 126/78 07/09/17 14:00 O2 Sat by Pulse Oximetry (%) 95 07/09/17 06:00 Constitutional: Yes: Obese Eyes: Yes: WNL, Conjunctiva Clear HENT: Yes: WNL, Atraumatic, Normocephalic Neck: Yes: WNL, Supple, Trachea Midline Respiratory: Yes: WNL, Regular, CTA Bilaterally Gastrointestinal: Yes: WNL, Normal Bowel Sounds, Soft Renal/: Yes: WNL Cardiovascular: Yes: WNL, Regular Rate and Rhythm JVD: No Carotid Bruit: No PMI: Non-Displaced Heart Sounds: Yes: S1, S2 Murmur: Yes: Systolic Murmur, Grade 2 Musculoskeletal: Yes: Back Pain Extremities: Yes: Amputation, Erythema Edema: No Peripheral Pulses WNL: No Peripheral Pulses: 1+ Left Carotid, 1+ Right Carotid, 1+ Left Femoral, 1+ Right Femoral, 1+ Left Popliteal, 1+ Right Popliteal, 1+ Left Doralis Pedis, 1+ Right Dorsalis Pedis Integumentary: Yes: WNL Neurological: Yes: WNL, Alert, Oriented ...Motor Strength: WNL Psychiatric: Yes: WNL - Other Data Labs, Other Data: CBC, BMP 07/08/17 13:01 07/09/17 06:01 Troponin, BNP 07/08/17 21:00 Troponin I 0.06 H D Troponin, BNP 07/08/17 21:00 Troponin I 0.06 H D Assessment/Plan 56-year-old man, with a history of diabetes, hypertension, hyperlipidemia, prostate cancer, status post seeding, peripheral vascular disease, status post bilateral toe amputations and chronic ulcers, admitted 07/08/17 with nausea vomiting and infected lower extremity ulcer. Elevated WBCs. There is no evidence of ischemia nor acute coronary syndrome. Perhaps minimal CHF on the x-ray. The patient is breathing comfortably. ECG is not available at the moment. Telemetry revealing normal sinus rhythm. No clinically important arrhythmias documented at this point. There is no need for further cardiac workup in this setting. There are no active cardiac issues. Give Lasix when necessary for symptoms only, creatinine is worsening. Therefore troponin is elevated. Hydrate with normal saline at 100 mL an hour, for a total of 2 L. The patient is stable from the cardiac standpoint. Please do not hesitate to call us PRN.
[2017-07-09] MEDS ORDERED: VANCOMYCIN 1,000 MG in DEXTROSE 5%-WATER - 250 ML IVPB ONE (16:00)
--- NOTE | 2017-07-09 16:17 | CON.GI ---
Consult Consult Specialty:: GI: Dr. Henderson covering for Dr. Stroud who resumes coverage Tuesday 07/11 Referred by:: Dr. Le Reason for Consultation:: Abnormal liver chemistries - History of Present Illness Chief Complaint: "I felt weak, vomited and had pain in my inner thighs this past " History of Present Illness: 56M admitted through [facility] ER for evaluation of weakness, vomiting and pain in inner thighs with weakness in his legs. This all started this past and prior to this he describes being in his USOH. Lab work revealed elevated white count, transasminases, CPK of 38K. He denies known history of liver disease (does not recall of being told of abnormal liver chemistries in the past ), recent change in medications, APAP use, recent travel, unclear sick contacts (He lives with his mother. his mother watches young children and one may have been sick with URI.) He says that he has not been taking his cholesterol medication for quite some time now because "the cholesterol was better". He denies history of IVDU and has a left upper arm tattoo since age 14. He also drank heavily (daily aiyana solomon and budweiser) for multiple years. He quit in 2012. He denies jaundiced episodes in the past. No abdominal imaging as of yet. He believes that he had a colonoscopy multiple years ago at [facility] that was "OK". There is no family history of liver disease or colorectal cancer/other GI malignancies. Being evaluated by ID for eval of infected LE ulcer. 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 vascular stent left leg) - Alcohol/Substance Use Hx Alcohol Use: Yes (as noted in HPI) History of Substance Use: reports: Marijuana (in past) - Smoking History Smoking history: Former smoker Have you smoked in the past 12 months: No Aproximately how many cigarettes per day: 15 If you are a former smoker, when did you quit?: 2012 - Social History Usual Living Arrangement: Other (with family) ADL: Independent Occupation: Former [employer] of : [facility] History of Recent Travel: No Home Medications - Allergies Allergies/Adverse Reactions: Allergies Allergy/AdvReac Type Severity Reaction Status Date / Time No Known Drug Allergies Allergy Verified 07/08/17 11:18 - Home Medications Home Medications: Ambulatory Orders Atorvastatin Calcium 40 mg PO HS 08/10/16 Amlodipine Besylate 5 mg PO DAILY 01/01/17 Aspirin [ASA -] 81 mg PO DAILY 01/01/17 Bicalutamide 50 mg PO DAILY 01/01/17 Insulin Aspart [Novolog Flexpen] 12 units SQ TID 01/01/17 Insulin Degludec [Tresiba Flextouch U-100] 45 units SQ HS 01/01/17 Metoprolol Succinate [Toprol XL -] 25 mg PO DAILY 01/01/17 Tamsulosin HCl [Flomax -] 0.4 mg PO DAILY 01/01/17 Family Disease History - Family Disease History Family Disease History: Diabetes: Father (: unclear causes), Other: Mother ( Alive: healthy. ? dementia), Brother (1, healthy, 1 : suicide), Sister (1, alive: BCA) Other Family History: No children, no family history of colorectal cancer or other GI malignancy Review of Systems - Review of Systems Constitutional: reports: Chills. denies: Fever, Unintentional Wgt. Loss Cardiovascular: denies: Chest Pain Respiratory: denies: Cough, Hemoptysis, SOB Gastrointestinal: reports: Vomiting (Resolved). denies: Abdominal Pain, Constipation, Diarrhea, Dysphagia, Indigestion, Melena, Rectal Bleeding, Vomiting Blood Physical Exam-GI Vital Signs: Vital Signs Temperature 98.2 F 07/09/17 14:00 Pulse Rate 89 07/09/17 14:00 Respiratory Rate 20 07/09/17 14:00 Blood Pressure 126/78 07/09/17 14:00 O2 Sat by Pulse Oximetry (%) 95 07/09/17 06:00 Constitutional: Yes: Calm Eyes: No: Sclera Icterus Cardiovascular: Yes: Regular Rate and Rhythm. No: Murmur Respiratory: Yes: CTA Bilaterally Gastrointestinal Inspection: Yes: Hernia (Reducible non-tender umbilical hernia) . No: Distention, Scars ...Auscultate: Yes: Normoactive Bowel Sounds ...Palpate: No: Hepatomegaly, Splenomegaly, Tenderness ...Percussion: No: Tympanitic ...Rectal Exam: Yes: Deferred (Refused by patient) Edema: No (No LE edema) Neurological: Yes: Alert, Oriented Labs: CBC, BMP 07/08/17 13:01 07/09/17 06:01 Hepatic Panel Total Bilirubin 0.8 mg/dL (0.2-1.0) 07/09/17 06:01 AST 780 U/L (15-37) H D 07/09/17 06:01 ALT 192 U/L (12-78) H D 07/09/17 06:01 Alkaline Phosphatase 129 U/L (45-117) H 07/09/17 06:01 Albumin 3.0 g/dl (3.4-5.0) L 07/09/17 06:01 Laboratory Tests 07/08/17 21:00 Creatine Kinase 16142 H Problem List - Problems (1) Abnormal liver enzymes Assessment/Plan: Suspect that asymptomatic transaminitis reflective of rhabdomyolyis. unclear etiology of rhabdo at this time. W/U per PMD. Consider renal eval Abdominal US to evaluate liver parenchyma Hepatitis A/B/C serologies Avoid hepatotoxic agents (including tylenol) Avoid statin therapy Code(s): R74.8 - ABNORMAL LEVELS OF OTHER SERUM ENZYMES
[2017-07-09] MEDS ORDERED: PT OWN MED DRAWER 7, Y5N ONE (16:30)
--- NOTE | 2017-07-09 17:15 | EKG ---
Test Reason : Blood Pressure : / mmHG Vent. Rate : 107 BPM Atrial Rate : 107 BPM P-R Int : 176 ms QRS Dur : 098 ms QT Int : 360 ms P-R-T Axes : 043 -40 025 degrees QTc Int : 480 ms SINUS TACHYCARDIA LEFT AXIS DEVIATION CANNOT RULE OUT ANTERIOR INFARCT , AGE UNDETERMINED ABNORMAL ECG WHEN COMPARED WITH ECG OF 01-JAN-2017 00:35, NO SIGNIFICANT CHANGE WAS FOUND Confirmed by VASU NICOLE MD ([id number]) on 07/09/2017 5:14:47 PM Referred By: Confirmed By:VASU NICOLE MD
[2017-07-09] MEDS: PIPERACILLIN/TAZOB 2.25 GM 2.25 GM/50 ML BAG IVPB SCH ×2 (17:56→17:58)
[2017-07-09] MEDS ORDERED: INSULIN (NOVOLOG) ASPART 100 UNITS/ML 10ML VIAL ONE (18:48)
[2017-07-09] MEDS: INSULIN DETEMIR 100 UNITS/ML MDV SQ SCH (22:39)
[2017-07-10] MEDS: PIPERACILLIN/TAZOB 2.25 GM 2.25 GM/50 ML BAG IVPB SCH ×3 (01:47→17:52)
[2017-07-10] MEDS: INSULIN SLIDING SCALE (NOVOLOG) 1 VIAL SQ SCH ×4 (07:00→23:22)
[2017-07-10 07:26] LABS: HEMATOCRIT 33.3 % (35.4-49); HEMOGLOBIN 11.4 GM/dL (11.7-16.9); MCH 26.7 pg (25.7-33.7); MCHC 34.3 g/dl (32.0-35.9); MEAN CELL VOLUME 77.9 fl (80-96); MEAN PLT VOLUME 9.1 fl (7.5-11.1); PLATELET COUNT 139 K/MM3 (134-434); RBC 4.28 M/mm3 (4.00-5.60); RDW 15.6 % (11.9-15.9); WHITE BLOOD COUNT 4.9 K/mm3 (4.0-10.0)
[2017-07-10] MEDS ORDERED: PT OWN MED DRAWER 7, Y5N ONE (07:44)
[2017-07-10 07:57] LABS: ALBUMIN 2.7 g/dl (3.4-5.0); ALBUMIN 2.8 g/dl (3.4-5.0); ANION GAP 11 (8-16); BLOOD UREA NITROGEN 55 mg/dL (7-18); CALCIUM 8.4 mg/dL (8.5-10.1); CHLORIDE 102 mmol/L (98-107); CO2 23 mmol/L (21-32); CREATININE 4.4 mg/dL (0.7-1.3); GLUCOSE,RANDOM 251 mg/dL (74-106); POTASSIUM 3.8 mmol/L (3.5-5.1); SGPT/ALT 158 U/L (12-78); SODIUM 136 mmol/L (136-145)
[2017-07-10 07:59] LABS: ALK PHOS 106 U/L (45-117); BILIRUBIN,TOTAL 0.5 mg/dL (0.2-1.0); TOT PROT 6.2 g/dl (6.4-8.2)
[2017-07-10 08:01] LABS: BILIRUBIN,DIRECT 0.2 mg/dL (0.0-0.2); BILIRUBIN,TOTAL 0.7 mg/dL (0.2-1.0); TOT PROT 6.1 g/dl (6.4-8.2)
[2017-07-10 08:17] LABS: SGOT/AST 413 U/L (15-37)
[2017-07-10] MEDS: TAMSULOSIN HCL 0.4 MG CAP.ER.24H (FP) PO SCH (08:46)
[2017-07-10] MEDS: amLODIPine BESYLATE 5 MG TABLET (FP) PO SCH (10:12)
[2017-07-10] MEDS: METOPROLOL SUCCINATE 25 MG TAB.SR.24H (FP) PO SCH (10:12)
[2017-07-10] MEDS: ASPIRIN COATED 81 MG TABLET.EC PO SCH (10:12)
[2017-07-10] MEDS: HEPARIN NA (PORCINE) 5,000 UNITS/ML 1ML VIAL SQ SCH ×2 (10:12→23:30)
--- NOTE | 2017-07-10 10:40 | PN ---
Progress Note, Physician Chief Complaint: AWAKE ALERT NO DISTRESS - Current Medication List Current Medications: Active Medications Acetaminophen (Tylenol -) 650 mg PO Q6H PRN PRN Reason: BACK PAIN Last Admin: 07/09/17 10:54 Dose: 650 mg Amlodipine Besylate (Norvasc -) 5 mg PO DAILY [facility] Last Admin: 07/10/17 10:12 Dose: 5 mg Aspirin (Ecotrin -) 81 mg PO DAILY [facility] Last Admin: 07/10/17 10:12 Dose: 81 mg Heparin Sodium (Porcine) (Heparin -) 5,000 unit SQ BID [facility] Last Admin: 07/10/17 10:12 Dose: 5,000 unit Piperacillin/Tazobactam/Dextrose (Zosyn 2.25gm Ivpb (Premix)) 2.25 gm in 50 mls @ 100 mls/hr IVPB Q8H-IV [facility] PRN Reason: Protocol Last Admin: 07/10/17 10:10 Dose: 100 mls/hr Insulin Aspart (Novolog Vial Sliding Scale -) 1 vial SQ ACHS [facility] PRN Reason: Protocol Last Admin: 07/10/17 07:00 Dose: 4 units Insulin Detemir (Levemir Vial) 45 units SQ HS [facility] Last Admin: 07/09/17 22:39 Dose: 45 unit Metoprolol Succinate (Toprol Xl -) 25 mg PO DAILY [facility] Last Admin: 07/10/17 10:12 Dose: 25 mg Tamsulosin HCl (Flomax -) 0.4 mg PO DAILY@0830 [facility] Last Admin: 07/10/17 08:46 Dose: 0.4 mg - Objective Vital Signs: Vital Signs Temperature 98.4 F 07/10/17 06:00 Pulse Rate 85 07/10/17 06:00 Respiratory Rate 20 07/10/17 06:00 Blood Pressure 126/70 07/10/17 06:00 O2 Sat by Pulse Oximetry (%) 97 07/09/17 21:00 Constitutional: Yes: No Distress Eyes: Yes: WNL HENT: Yes: WNL Neck: Yes: WNL Cardiovascular: Yes: WNL Respiratory: Yes: WNL Gastrointestinal: Yes: WNL Musculoskeletal: Yes: Muscle Weakness Extremities: Yes: Amputation, Deformity, Other Edema: No Peripheral Pulses WNL: Yes Integumentary: Yes: Pressure Ulcer, Venous Stasis Changes Wound/Incision: Yes: Dressing Dry and Intact Neurological: Yes: Pre-Existing Deficit, Unresponsive, Unsteady Gait, Weakness ...Motor Strength: LLE, RLE Psychiatric: Yes: Other Labs: CBC, BMP 07/10/17 05:05 07/10/17 05:05 Problem List - Problems (1) Acute on chronic renal failure Code(s): N17.9 - ACUTE KIDNEY FAILURE, UNSPECIFIED; N18.9 - CHRONIC KIDNEY DISEASE, UNSPECIFIED Qualifiers: Acute renal failure type: unspecified Chronic kidney disease stage: unspecified stage Qualified Code(s): N17.9 - Acute kidney failure, unspecified ; N18.9 - Chronic kidney disease, unspecified; N18.9 - Chronic kidney disease, unspecified (2) Dehydration Code(s): E86.0 - DEHYDRATION (3) Elevated creatine kinase level Code(s): R74.8 - ABNORMAL LEVELS OF OTHER SERUM ENZYMES (4) Abscess of plantar aspect of foot Code(s): L02.619 - CUTANEOUS ABSCESS OF UNSPECIFIED FOOT (5) Acute renal failure Code(s): N17.9 - ACUTE KIDNEY FAILURE, UNSPECIFIED (6) Chronic kidney disease (CKD) Code(s): N18.9 - CHRONIC KIDNEY DISEASE, UNSPECIFIED Qualifiers: Chronic kidney disease stage: stage 3 (moderate) Qualified Code(s): N18.3 - Chronic kidney disease, stage 3 (moderate) (7) Diabetes 1.5, managed as type 2 Code(s): E13.9 - OTHER SPECIFIED DIABETES MELLITUS WITHOUT COMPLICATIONS (8) Diabetes mellitus Code(s): E11.9 - TYPE 2 DIABETES MELLITUS WITHOUT COMPLICATIONS Qualifiers: Diabetes mellitus type: type 2 Diabetes mellitus complication status: with hyperglycemia 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: with ironworker wire fence erector use Qualified Code(s): E11.65 - Type 2 diabetes mellitus with hyperglycemia (9) Uncontrolled diabetes mellitus Code(s): E11.65 - TYPE 2 DIABETES MELLITUS WITH HYPERGLYCEMIA Qualifiers: Diabetes mellitus type: type 2 Diabetes mellitus complication detail: with other circulatory complications (10) HTN (hypertension) Code(s): I10 - ESSENTIAL (PRIMARY) HYPERTENSION Qualifiers: (11) Hyperlipidemia Code(s): E78.5 - HYPERLIPIDEMIA, UNSPECIFIED Qualifiers: Hyperlipidemia type: Other hyperlipidemia (12) Osteomyelitis Code(s): M86.9 - OSTEOMYELITIS, UNSPECIFIED Qualifiers: Osteomyelitis type: other chronic Osteomyelitis location: multiple sites Qualified Code(s): M86.69 - Other chronic osteomyelitis, multiple sites (13) PVD (peripheral vascular disease) Code(s): I73.9 - PERIPHERAL VASCULAR DISEASE, UNSPECIFIED Assessment/Plan FEVER CONTINUED CHECK CULTURES ID F/U PAIN CONTROL IV ABX DM CONTROLL A1C 11% UNCONTROLLED NON-COMPLIANT ENDOCRINE CONSULT AND DIETARY F/U
--- NOTE | 2017-07-10 20:58 | PN ---
Progress Note, Physician History of Present Illness: Feeling better No recurrent N/V Temps down Afebrile - Current Medication List Current Medications: Active Medications Acetaminophen (Tylenol -) 650 mg PO Q6H PRN PRN Reason: BACK PAIN Last Admin: 07/09/17 10:54 Dose: 650 mg Amlodipine Besylate (Norvasc -) 5 mg PO DAILY [facility] Last Admin: 07/10/17 10:12 Dose: 5 mg Aspirin (Ecotrin -) 81 mg PO DAILY [facility] Last Admin: 07/10/17 10:12 Dose: 81 mg Heparin Sodium (Porcine) (Heparin -) 5,000 unit SQ BID [facility] Last Admin: 07/10/17 10:12 Dose: 5,000 unit Piperacillin/Tazobactam/Dextrose (Zosyn 2.25gm Ivpb (Premix)) 2.25 gm in 50 mls @ 100 mls/hr IVPB Q8H-IV [facility] PRN Reason: Protocol Last Admin: 07/10/17 17:52 Dose: 100 mls/hr Insulin Aspart (Novolog Vial Sliding Scale -) 1 vial SQ ACHS [facility] PRN Reason: Protocol Last Admin: 07/10/17 17:58 Dose: 8 units Insulin Detemir (Levemir Vial) 45 units SQ HS [facility] Last Admin: 07/09/17 22:39 Dose: 45 unit Metoprolol Succinate (Toprol Xl -) 25 mg PO DAILY [facility] Last Admin: 07/10/17 10:12 Dose: 25 mg Tamsulosin HCl (Flomax -) 0.4 mg PO DAILY@0830 [facility] Last Admin: 07/10/17 08:46 Dose: 0.4 mg - Objective Vital Signs: Vital Signs Temperature 97.9 F 07/10/17 18:00 Pulse Rate 72 07/10/17 18:00 Respiratory Rate 20 07/10/17 18:00 Blood Pressure 145/70 07/10/17 18:00 O2 Sat by Pulse Oximetry (%) 97 07/10/17 09:00 Constitutional: Yes: No Distress Cardiovascular: Yes: Regular Rate and Rhythm, S1, S2 Respiratory: Yes: CTA Bilaterally Gastrointestinal: Yes: Normal Bowel Sounds, Soft Edema: No Integumentary: Yes: Other (+ plantar ulcer without drainage) Labs: CBC, BMP 07/10/17 05:05 07/10/17 05:05 Assessment/Plan Sepsis Infected plantar ulcer Hx MRSA Await c/s Continue zosyn Local wound care
[2017-07-10] MEDS: INSULIN DETEMIR 100 UNITS/ML MDV SQ SCH (23:22)
[2017-07-11] MEDS: PIPERACILLIN/TAZOB 2.25 GM 2.25 GM/50 ML BAG IVPB SCH ×3 (03:16→17:33)
[2017-07-11] MEDS: INSULIN SLIDING SCALE (NOVOLOG) 1 VIAL SQ SCH ×4 (07:50→21:22)
[2017-07-11] MEDS: amLODIPine BESYLATE 5 MG TABLET (FP) PO SCH (10:20)
[2017-07-11] MEDS: TAMSULOSIN HCL 0.4 MG CAP.ER.24H (FP) PO SCH (10:20)
[2017-07-11] MEDS: METOPROLOL SUCCINATE 25 MG TAB.SR.24H (FP) PO SCH (10:20)
[2017-07-11] MEDS: ASPIRIN COATED 81 MG TABLET.EC PO SCH (10:20)
[2017-07-11] MEDS: HEPARIN NA (PORCINE) 5,000 UNITS/ML 1ML VIAL SQ SCH ×2 (10:20→21:22)
--- NOTE | 2017-07-11 13:14 | PN ---
Progress Note, Physician History of Present Illness: No events. Comfortable. Offers no GI-related complains. - Current Medication List Current Medications: Active Medications Acetaminophen (Tylenol -) 650 mg PO Q6H PRN PRN Reason: BACK PAIN Last Admin: 07/09/17 10:54 Dose: 650 mg Amlodipine Besylate (Norvasc -) 5 mg PO DAILY [facility] Last Admin: 07/11/17 10:20 Dose: 5 mg Aspirin (Ecotrin -) 81 mg PO DAILY [facility] Last Admin: 07/11/17 10:20 Dose: 81 mg Heparin Sodium (Porcine) (Heparin -) 5,000 unit SQ BID [facility] Last Admin: 07/11/17 10:20 Dose: 5,000 unit Piperacillin/Tazobactam/Dextrose (Zosyn 2.25gm Ivpb (Premix)) 2.25 gm in 50 mls @ 100 mls/hr IVPB Q8H-IV [facility] PRN Reason: Protocol Last Admin: 07/11/17 10:20 Dose: 100 mls/hr Insulin Aspart (Novolog Vial Sliding Scale -) 1 vial SQ ACHS [facility] PRN Reason: Protocol Last Admin: 07/11/17 11:52 Dose: 4 units Insulin Detemir (Levemir Vial) 45 units SQ HS [facility] Last Admin: 07/10/17 23:22 Dose: 45 unit Metoprolol Succinate (Toprol Xl -) 25 mg PO DAILY [facility] Last Admin: 07/11/17 10:20 Dose: 25 mg Tamsulosin HCl (Flomax -) 0.4 mg PO DAILY@0830 [facility] Last Admin: 07/11/17 10:20 Dose: 0.4 mg - Objective Vital Signs: Vital Signs Temperature 98 F 07/11/17 10:00 Pulse Rate 68 07/11/17 10:00 Respiratory Rate 18 07/11/17 10:00 Blood Pressure 120/60 07/11/17 10:00 O2 Sat by Pulse Oximetry (%) 95 07/11/17 09:00 Constitutional: Yes: Well Nourished, No Distress, Calm Eyes: Yes: Conjunctiva Clear HENT: Yes: Atraumatic Neck: Yes: Supple Cardiovascular: Yes: Regular Rate and Rhythm Respiratory: Yes: Regular Gastrointestinal: Yes: Soft. No: Distention, Melena, Rectal Bleeding, Tenderness, Vomiting Neurological: Yes: Alert, Oriented Labs: CBC, BMP 07/10/17 05:05 07/10/17 05:05 Laboratory Results - last 24 hr 07/08/17 07/10/17 07/10/17 20:37 17:22 23:20 POC Glucometer > 400 321 334 07/11/17 07/11/17 06:31 11:48 POC Glucometer 187 198 Laboratory Last Values WBC 4.9 K/mm3 (4.0-10.0) D 07/10/17 05:05 RBC 4.28 M/mm3 (4.00-5.60) 07/10/17 05:05 Hgb 11.4 GM/dL (11.7-16.9) L D 07/10/17 05:05 Hct 33.3 % (35.4-49) L D 07/10/17 05:05 MCV 77.9 fl (80-96) L 07/10/17 05:05 MCH 26.7 pg (25.7-33.7) 07/10/17 05:05 MCHC 34.3 g/dl (32.0-35.9) 07/10/17 05:05 RDW 15.6 % (11.9-15.9) 07/10/17 05:05 Plt Count 139 K/MM3 (134-434) D 07/10/17 05:05 MPV 9.1 fl (7.5-11.1) 07/10/17 05:05 Neutrophils % 92.5 % (42.8-82.8) H 07/08/17 13:01 Lymphocytes % 2.2 % (8-40) L D 07/08/17 13:01 Monocytes % 5.0 % (3.8-10.2) 07/08/17 13:01 Eosinophils % 0.0 % (0-4.5) D 07/08/17 13:01 Basophils % 0.3 % (0-2.0) 07/08/17 13:01 VBG pH 7.35 (7.32-7.42) 07/08/17 13:01 POC VBG pCO2 39.8 mmHg (38-52) D 07/08/17 13:01 POC VBG pO2 34.8 mmHg (28-48) 07/08/17 13:01 Mixed VBG HCO3 21.4 meq/L (19-25) 07/08/17 13:01 Sodium 136 mmol/L (136-145) 07/10/17 05:05 Potassium 3.8 mmol/L (3.5-5.1) 07/10/17 05:05 Chloride 102 mmol/L (98-107) 07/10/17 05:05 Carbon Dioxide 23 mmol/L (21-32) 07/10/17 05:05 Anion Gap 11 (8-16) 07/10/17 05:05 BUN 55 mg/dL (7-18) H D 07/10/17 05:05 Creatinine 4.4 mg/dL (0.7-1.3) H D 07/10/17 05:05 Creat Clearance w eGFR 13.88 (>60) 07/10/17 05:05 POC Glucometer 198 UNITS (80-120) 07/11/17 11:48 Random Glucose 251 mg/dL (74-106) H D 07/10/17 05:05 Hemoglobin A1c % 11.4 % (4.8-6.0) H D 07/09/17 06:01 Calcium 8.4 mg/dL (8.5-10.1) L 07/10/17 05:05 Total Bilirubin 0.5 mg/dL (0.2-1.0) D 07/10/17 05:05 Direct Bilirubin 0.2 mg/dL (0.0-0.2) 07/10/17 05:05 AST 413 U/L (15-37) H D 07/10/17 05:05 ALT 158 U/L (12-78) H 07/10/17 05:05 Alkaline Phosphatase 106 U/L (45-117) 07/10/17 05:05 Creatine Kinase 44187 IU/L (39-308) H 07/08/17 21:00 Creatine Kinase Index 0.3 % (0.0-5.0) 07/08/17 21:00 CK-MB (CK-2) 132.741 ng/mL (0.5-3.6) H 07/08/17 21:00 Troponin I 0.06 ng/ml (0.00-0.05) H D 07/08/17 21:00 Total Protein 6.2 g/dl (6.4-8.2) L 07/10/17 05:05 Albumin 2.8 g/dl (3.4-5.0) L 07/10/17 05:05 Triglycerides 136 mg/dL (35-160) D 07/09/17 06:01 Cholesterol 136 mg/dL (50-200) 07/09/17 06:01 Total LDL Cholesterol 75 mg/dL (5-100) 07/09/17 06:01 HDL Cholesterol 41 mg/dL (40-60) 07/09/17 06:01 Lipase 159 U/L (73-393) 07/08/17 13:01 Urine Color Yellow 07/08/17 14:53 Urine Appearance Clear 07/08/17 14:53 Urine pH 6.0 (5.0-8.0) 07/08/17 14:53 Ur Specific [place] 1.012 (1.001-1.035) 07/08/17 14:53 Urine Protein 2+ (NEGATIVE) H 07/08/17 14:53 Urine Glucose (UA) 3+ (NEGATIVE) H 07/08/17 14:53 Urine Ketones Trace (NEGATIVE) H 07/08/17 14:53 Urine Blood 3+ (NEGATIVE) H 07/08/17 14:53 Urine Nitrite Negative (NEGATIVE) 07/08/17 14:53 Urine Bilirubin Negative (NEGATIVE) 07/08/17 14:53 Urine Urobilinogen Negative mg/dL (0.2-1.0) 07/08/17 14:53 Ur Leukocyte Esterase Negative (NEGATIVE) 07/08/17 14:53 Urine WBC (Auto) None /hpf (3-5) 07/08/17 14:53 Urine RBC (Auto) 4 /hpf (0-3) 07/08/17 14:53 Ur Epithelial Cells Rare /HPF (FEW) 07/08/17 14:53 Urine Mucus Rare 07/08/17 14:53 Acetone, Qual Negative (NEGATIVE) 07/08/17 13:01 Hepatitis A IgM Ab Negative (Negative) 07/09/17 14:30 Hep Bs Antigen Negative (Negative) 07/09/17 14:30 Hep B Core IgM Ab Negative (Negative) 07/09/17 14:30 Hepatitis C Antibody <0.1 s/co ratio (0.0-0.9) 07/09/17 14:30 Problem List - Problems (1) Drug-induced hepatic toxicity Code(s): K71.6 - TOXIC LIVER DISEASE WITH HEPATITIS, NOT ELSEWHERE CLASSIFIED; T50.905A - ADVERSE EFFECT OF UNSP DRUG/MEDS/BIOL SUBST, INIT (2) Drug-induced hepatitis Code(s): K71.6 - TOXIC LIVER DISEASE WITH HEPATITIS, NOT ELSEWHERE CLASSIFIED; T50.905A - ADVERSE EFFECT OF UNSP DRUG/MEDS/BIOL SUBST, INIT (3) Abnormal liver enzymes Code(s): R74.8 - ABNORMAL LEVELS OF OTHER SERUM ENZYMES Assessment/Plan Presumed acute onset AST-predominant hepatitis with negative acute viral profile. Quit heave alcohol use in 2012. Chronic use of statins. Denies any other liver risk factors. Daily liver chemistry including bili and ALP, PT, INR Stop all hepatotoxic medications It will take few weeks for the liver chem to normalize after an offending agent has been removed. Follow up as OP for autoimune liver work up
[2017-07-11 14:00] LABS: BASO % 0.5 % (0-2.0); EOS % 7.6 % (0-4.5); HEMATOCRIT 33.3 % (35.4-49); HEMOGLOBIN 11.2 GM/dL (11.7-16.9); LYMPH % 12.7 % (8-40); MCH 26.3 pg (25.7-33.7); MCHC 33.5 g/dl (32.0-35.9); MEAN CELL VOLUME 78.4 fl (80-96); MEAN PLT VOLUME 8.7 fl (7.5-11.1); MONO % 7.7 % (3.8-10.2); NEUT % 71.5 % (42.8-82.8); PLATELET COUNT 158 K/MM3 (134-434); RBC 4.25 M/mm3 (4.00-5.60); RDW 15.3 % (11.9-15.9)
[2017-07-11 14:13] LABS: INR 1.01 (0.82-1.09); PROTHROMBIN TIME (PATIENT) 11.4 SEC (9.98-11.88)
[2017-07-11 14:35] LABS: ALBUMIN 2.7 g/dl (3.4-5.0); ALK PHOS 107 U/L (45-117); ANION GAP 13 (8-16); BILIRUBIN,DIRECT 0.2 mg/dL (0.0-0.2); BILIRUBIN,TOTAL 0.6 mg/dL (0.2-1.0); BLOOD UREA NITROGEN 70 mg/dL (7-18); CHLORIDE 104 mmol/L (98-107); CO2 21 mmol/L (21-32); CREATININE 5.8 mg/dL (0.7-1.3); GLUCOSE,RANDOM 254 mg/dL (74-106); POTASSIUM 4.4 mmol/L (3.5-5.1); SGOT/AST 290 U/L (15-37); SGPT/ALT 151 U/L (12-78); SODIUM 138 mmol/L (136-145); TOT PROT 6.4 g/dl (6.4-8.2)
--- NOTE | 2017-07-11 15:26 | PN ---
Progress Note, Physician Chief Complaint: AWAKE ALERT FEELS GOOD - Current Medication List Current Medications: Active Medications Acetaminophen (Tylenol -) 650 mg PO Q6H PRN PRN Reason: BACK PAIN Last Admin: 07/09/17 10:54 Dose: 650 mg Amlodipine Besylate (Norvasc -) 5 mg PO DAILY [facility] Last Admin: 07/11/17 10:20 Dose: 5 mg Aspirin (Ecotrin -) 81 mg PO DAILY [facility] Last Admin: 07/11/17 10:20 Dose: 81 mg Heparin Sodium (Porcine) (Heparin -) 5,000 unit SQ BID [facility] Last Admin: 07/11/17 10:20 Dose: 5,000 unit Piperacillin/Tazobactam/Dextrose (Zosyn 2.25gm Ivpb (Premix)) 2.25 gm in 50 mls @ 100 mls/hr IVPB Q8H-IV [facility] PRN Reason: Protocol Last Admin: 07/11/17 10:20 Dose: 100 mls/hr Insulin Aspart (Novolog Vial Sliding Scale -) 1 vial SQ ACHS [facility] PRN Reason: Protocol Last Admin: 07/11/17 11:52 Dose: 4 units Insulin Detemir (Levemir Vial) 45 units SQ HS [facility] Last Admin: 07/10/17 23:22 Dose: 45 unit Metoprolol Succinate (Toprol Xl -) 25 mg PO DAILY [facility] Last Admin: 07/11/17 10:20 Dose: 25 mg Tamsulosin HCl (Flomax -) 0.4 mg PO DAILY@0830 [facility] Last Admin: 07/11/17 10:20 Dose: 0.4 mg - Objective Vital Signs: Vital Signs Temperature 98 F 07/11/17 10:00 Pulse Rate 68 07/11/17 10:00 Respiratory Rate 18 07/11/17 10:00 Blood Pressure 120/60 07/11/17 10:00 O2 Sat by Pulse Oximetry (%) 95 07/11/17 09:00 Constitutional: Yes: No Distress Eyes: Yes: WNL, Other Neck: Yes: WNL Cardiovascular: Yes: WNL Respiratory: Yes: WNL Gastrointestinal: Yes: WNL Genitourinary: Yes: Incontinence Musculoskeletal: Yes: Muscle Weakness Extremities: Yes: Deformity Edema: Yes Peripheral Pulses WNL: Yes Integumentary: Yes: Pressure Ulcer, Rash, Venous Stasis Changes Wound/Incision: Yes: Dressing Dry and Intact Neurological: Yes: Loss of Sensation, Numbness, Paresthesia, Pre-Existing Deficit, Weakness ...Motor Strength: LLE, RLE Psychiatric: Yes: WNL Labs: CBC, BMP 07/11/17 13:54 07/11/17 13:54 INR, PTT INR 1.01 (0.82-1.09) 07/11/17 13:54 Problem List - Problems (1) Acute on chronic renal failure Code(s): N17.9 - ACUTE KIDNEY FAILURE, UNSPECIFIED; N18.9 - CHRONIC KIDNEY DISEASE, UNSPECIFIED Qualifiers: Acute renal failure type: unspecified Chronic kidney disease stage: unspecified stage Qualified Code(s): N17.9 - Acute kidney failure, unspecified ; N18.9 - Chronic kidney disease, unspecified; N18.9 - Chronic kidney disease, unspecified (2) Dehydration Code(s): E86.0 - DEHYDRATION (3) Elevated creatine kinase level Code(s): R74.8 - ABNORMAL LEVELS OF OTHER SERUM ENZYMES (4) Abscess of plantar aspect of foot Code(s): L02.619 - CUTANEOUS ABSCESS OF UNSPECIFIED FOOT (5) Acute renal failure Code(s): N17.9 - ACUTE KIDNEY FAILURE, UNSPECIFIED (6) Chronic kidney disease (CKD) Code(s): N18.9 - CHRONIC KIDNEY DISEASE, UNSPECIFIED Qualifiers: Chronic kidney disease stage: stage 3 (moderate) Qualified Code(s): N18.3 - Chronic kidney disease, stage 3 (moderate) (7) Diabetes 1.5, managed as type 2 Code(s): E13.9 - OTHER SPECIFIED DIABETES MELLITUS WITHOUT COMPLICATIONS (8) Diabetes mellitus Code(s): E11.9 - TYPE 2 DIABETES MELLITUS WITHOUT COMPLICATIONS Qualifiers: Diabetes mellitus type: type 2 Diabetes mellitus complication status: with hyperglycemia Diabetes mellitus long-term insulin use: with long-term use Qualified Code(s): E11.65 - Type 2 diabetes mellitus with hyperglycemia (9) Uncontrolled diabetes mellitus Code(s): E11.65 - TYPE 2 DIABETES MELLITUS WITH HYPERGLYCEMIA Qualifiers: Diabetes mellitus type: type 2 Diabetes mellitus complication detail: with other circulatory complications (10) HTN (hypertension) Code(s): I10 - ESSENTIAL (PRIMARY) HYPERTENSION Qualifiers: (11) Hyperlipidemia Code(s): E78.5 - HYPERLIPIDEMIA, UNSPECIFIED Qualifiers: Hyperlipidemia type: Other hyperlipidemia (12) Osteomyelitis Code(s): M86.9 - OSTEOMYELITIS, UNSPECIFIED Qualifiers: Osteomyelitis type: other chronic Osteomyelitis location: multiple sites Qualified Code(s): M86.69 - Other chronic osteomyelitis, multiple sites (13) PVD (peripheral vascular disease) Code(s): I73.9 - PERIPHERAL VASCULAR DISEASE, UNSPECIFIED Assessment/Plan RENAL FUNCTION WORSE NEPHROLOGY CALLED FOR CONSULT GI NOTE READ AND APPRECIATED STOP ALL HEPATOTOXIC MEDS PAIN CONTROL IV ABX FOR CELLULITIS PT EVAL
--- NOTE | 2017-07-11 16:34 | PN ---
Progress Note (short form) - Note Progress Note: Vascular Surgery Pt seen and examined. Pt follows Dr. jones in the wound care clinic. right plantar wound clean, pink. Good granulation. Cont santyl to area daily. offload area. Guerrero Nuno DO
[2017-07-11] MEDS ORDERED: INSULIN (NOVOLOG) ASPART 100 UNITS/ML 10ML VIAL ONE (18:17)
[2017-07-11] MEDS: INSULIN DETEMIR 100 UNITS/ML MDV SQ SCH (21:22)
[2017-07-11] MEDS: COLLAGENASE CLOSTRIDIUM HIST. 30 GRAMS TUBE TP SCH (21:23)
[2017-07-12 00:08] LABS: HBSAG SCREEN Negative (Negative); HEP A AB, IGM Negative (Negative); HEP B CORE AB, TOT Negative (Negative)
--- NOTE | 2017-07-12 00:09 | CONSULT ---
Consult Consult Specialty:: ENDOCRINE Referred by:: DR.AMMIR BUTLER Reason for Consultation:: DIABETES MELLITUS - History of Present Illness Chief Complaint: HIGH SUGARS/ NOT FEELING WELL History of Present Illness: 57year old male, with a significant past medical history of hypertension, hyperlipidemia, diabetes(insulin-dependent), diabetic foot ulcers, prostate cancer(seed implants), who presents to the emergency department complaining of nausea and vomiting since yesterday. 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 vascular stent left leg) - Alcohol/Substance Use Hx Alcohol Use: Yes (as noted in HPI) History of Substance Use: reports: Marijuana (in past) - Smoking History Smoking history: Former smoker Have you smoked in the past 12 months: No Aproximately how many cigarettes per day: 15 If you are a former smoker, when did you quit?: 2012 - Social History Usual Living Arrangement: Other (with family) ADL: Independent Occupation: Former [employer] History of Recent Travel: No Home Medications - Allergies Allergies/Adverse Reactions: Allergies Allergy/AdvReac Type Severity Reaction Status Date / Time No Known Drug Allergies Allergy Verified 07/08/17 11:18 - Home Medications Home Medications: Ambulatory Orders Atorvastatin Calcium 40 mg PO HS 08/10/16 Amlodipine Besylate 5 mg PO DAILY 01/01/17 Aspirin [ASA -] 81 mg PO DAILY 01/01/17 Bicalutamide 50 mg PO DAILY 01/01/17 Insulin Aspart [Novolog Flexpen] 12 units SQ TID 01/01/17 Insulin Degludec [Tresiba Flextouch U-100] 45 units SQ HS 01/01/17 Metoprolol Succinate [Toprol XL -] 25 mg PO DAILY 01/01/17 Tamsulosin HCl [Flomax -] 0.4 mg PO DAILY 07/08/17 Family Disease History - Family Disease History Family Disease History: Diabetes: Father (: unclear causes), Other: Mother ( Alive: healthy. ? dementia), Brother (1, healthy, 1 : suicide), Sister (1, alive: BCA) Other Family History: No children, no family history of colorectal cancer or other GI malignancy Review of Systems - Review of Systems Constitutional: reports: Weakness Eyes: reports: No Symptoms HENT: reports: No Symptoms Neck: reports: No Symptoms Cardiovascular: reports: Shortness of Breath Respiratory: reports: Exercise Intolerance, SOB on Exertion Gastrointestinal: reports: No Symptoms, Bloating Genitourinary: reports: No Symptoms Breasts: reports: No Symptoms Reported Musculoskeletal: reports: Muscle Pain, Muscle Cramps, Muscle Weakness Physical Exam Vital Signs: Vital Signs Temperature 98.2 F 07/11/17 18:00 Pulse Rate 106 H 07/11/17 18:42 Respiratory Rate 20 07/11/17 18:10 Blood Pressure 136/72 07/11/17 18:00 O2 Sat by Pulse Oximetry (%) 95 07/11/17 18:10 Constitutional: Yes: Anxious Eyes: Yes: EOM Intact HENT: Yes: Normocephalic Neck: Yes: Trachea Midline Cardiovascular: Yes: Regular Rate and Rhythm Respiratory: Yes: CTA Bilaterally Gastrointestinal: Yes: Normal Bowel Sounds ...Rectal Exam: Yes: Deferred Renal/: Yes: WNL Breast(s): Yes: WNL Musculoskeletal: Yes: Back Pain Extremities: Yes: Amputation, Delayed Capillary Refill Labs: CBC, BMP 07/11/17 13:54 07/11/17 13:54 Problem List - Problems (1) Type 2 diabetes mellitus with other diabetic kidney complication Code(s): E11.29 - TYPE 2 DIABETES MELLITUS [facility] DIABETIC KIDNEY COMPLICATION (2) Abnormal liver enzymes Code(s): R74.8 - ABNORMAL LEVELS OF OTHER SERUM ENZYMES (3) Acute on chronic renal failure Code(s): N17.9 - ACUTE KIDNEY FAILURE, UNSPECIFIED; N18.9 - CHRONIC KIDNEY DISEASE, UNSPECIFIED Qualifiers: Acute renal failure type: unspecified Chronic kidney disease stage: unspecified stage Qualified Code(s): N17.9 - Acute kidney failure, unspecified ; N18.9 - Chronic kidney disease, unspecified; N18.9 - Chronic kidney disease, unspecified (4) Drug-induced hepatic toxicity Code(s): K71.6 - TOXIC LIVER DISEASE WITH HEPATITIS, NOT ELSEWHERE CLASSIFIED; T50.905A - ADVERSE EFFECT OF UNSP DRUG/MEDS/BIOL SUBST, INIT (5) Elevated creatine kinase level Code(s): R74.8 - ABNORMAL LEVELS OF OTHER SERUM ENZYMES (6) Abscess of plantar aspect of foot Code(s): L02.619 - CUTANEOUS ABSCESS OF UNSPECIFIED FOOT (7) Acute gastroenteritis Code(s): K52.9 - NONINFECTIVE GASTROENTERITIS AND COLITIS, UNSPECIFIED Assessment/Plan Current Active Problems Abnormal liver enzymes (Acute) Acute on chronic renal failure (Acute) Dehydration (Acute) Drug-induced hepatic toxicity (Acute) Drug-induced hepatitis (Acute) Elevated creatine kinase level (Acute) Abnormal Lab Results 07/11/17 07/11/17 13:54 13:54 Hgb 11.2 L Hct 33.3 L MCV 78.4 L Eosinophils % 7.6 H D BUN 70 H D Creatinine 5.8 H D Random Glucose 254 H Calcium 8.0 L AST 290 H D ALT 151 H Albumin 2.7 L Laboratory Results - last 24 hr 07/08/17 07/11/17 07/11/17 20:37 06:31 11:48 WBC RBC Hgb Hct MCV MCH MCHC RDW Plt Count MPV Neutrophils % Lymphocytes % Monocytes % Eosinophils % Basophils % PT with INR INR Sodium Potassium Chloride Carbon Dioxide Anion Gap BUN Creatinine Creat Clearance w eGFR POC Glucometer > 400 187 198 Random Glucose Calcium Total Bilirubin Direct Bilirubin AST ALT Alkaline Phosphatase Total Protein Albumin 07/11/17 07/11/17 07/11/17 13:54 13:54 13:54 WBC 6.0 RBC 4.25 Hgb 11.2 L Hct 33.3 L MCV 78.4 L MCH 26.3 MCHC 33.5 RDW 15.3 Plt Count 158 MPV 8.7 Neutrophils % 71.5 D Lymphocytes % 12.7 D Monocytes % 7.7 Eosinophils % 7.6 H D Basophils % 0.5 PT with INR 11.40 INR 1.01 Sodium 138 Potassium 4.4 Chloride 104 Carbon Dioxide 21 Anion Gap 13 BUN 70 H D Creatinine 5.8 H D Creat Clearance w eGFR 10.06 POC Glucometer Random Glucose 254 H Calcium 8.0 L Total Bilirubin 0.6 Direct Bilirubin 0.2 AST 290 H D ALT 151 H Alkaline Phosphatase 107 Total Protein 6.4 Albumin 2.7 L 07/11/17 07/11/17 17:27 21:18 WBC RBC Hgb Hct MCV MCH MCHC RDW Plt Count MPV Neutrophils % Lymphocytes % Monocytes % Eosinophils % Basophils % PT with INR INR Sodium Potassium Chloride Carbon Dioxide Anion Gap BUN Creatinine Creat Clearance w eGFR POC Glucometer 280 298 Random Glucose Calcium Total Bilirubin Direct Bilirubin AST ALT Alkaline Phosphatase Total Protein Albumin Laboratory Tests 10/03/16 10/04/16 10/04/16 22:47 05:45 12:12 Sodium Potassium Chloride Carbon Dioxide Anion Gap BUN Creatinine Creat Clearance w eGFR POC Glucometer 252 236 372 Hemoglobin A1c % 10/04/16 07/09/17 07/11/17 17:22 06:01 13:54 Sodium 138 Potassium 4.4 Chloride 104 Carbon Dioxide 21 Anion Gap 13 BUN 70 H D Creatinine 5.8 H D Creat Clearance w eGFR 10.06 POC Glucometer 386 Hemoglobin A1c % 11.4 H D plan: bgm novololg coverage dose adjustments levemir 45 units hs levemir 15 units ac bf
[2017-07-12] MEDS: PIPERACILLIN/TAZOB 2.25 GM 2.25 GM/50 ML BAG IVPB SCH ×2 (01:28→10:54)
[2017-07-12] MEDS: INSULIN SLIDING SCALE (NOVOLOG) 1 VIAL SQ SCH ×4 (06:47→22:01)
[2017-07-12] MEDS: INSULIN DETEMIR 100 UNITS/ML MDV SQ SCH ×2 (06:47→22:01)
[2017-07-12] MEDS: AMINO ACIDS/PROTEIN HYDROLYS 30 ML LIQUID.PKT PO SCH ×2 (09:14→17:30)
[2017-07-12] MEDS: TAMSULOSIN HCL 0.4 MG CAP.ER.24H (FP) PO SCH (09:14)
[2017-07-12] MEDS: METOPROLOL SUCCINATE 25 MG TAB.SR.24H (FP) PO SCH (10:06)
[2017-07-12] MEDS: amLODIPine BESYLATE 5 MG TABLET (FP) PO SCH (10:06)
[2017-07-12] MEDS: ASCORBIC ACID 500 MG TABLET (FP) PO SCH (10:07)
[2017-07-12] MEDS: HEPARIN NA (PORCINE) 5,000 UNITS/ML 1ML VIAL SQ SCH ×2 (10:07→22:01)
[2017-07-12] MEDS: MULTIVITAMINS (DAILY MVI) TABLET (FP) PO SCH (10:07)
[2017-07-12] MEDS: ASPIRIN COATED 81 MG TABLET.EC PO SCH (10:07)
[2017-07-12] MEDS ORDERED: SODIUM CHLORIDE 500 ML IV STA (10:23)
--- NOTE | 2017-07-12 10:58 | PN ---
Progress Note, Physician Chief Complaint: Dehydration, Rhabdomylosis History of Present Illness: NAD, in bed labs reviewed Cr/BUN rising drastically - Current Medication List Current Medications: Active Medications Acetaminophen (Tylenol -) 650 mg PO Q6H PRN PRN Reason: BACK PAIN Last Admin: 07/09/17 10:54 Dose: 650 mg Amino Acids (Prosource No Carb Liquid Pkt) 30 ml PO BID@0800,1730 [facility] Last Admin: 07/12/17 09:14 Dose: 30 ml Amlodipine Besylate (Norvasc -) 5 mg PO DAILY [facility] Last Admin: 07/12/17 10:06 Dose: 5 mg Ascorbic Acid (Vitamin C -) 500 mg PO DAILY [facility] Last Admin: 07/12/17 10:07 Dose: 500 mg Aspirin (Ecotrin -) 81 mg PO DAILY [facility] Last Admin: 07/12/17 10:07 Dose: 81 mg Collagenase (Santyl -) 1 applic TP DAILY [facility] Last Admin: 07/11/17 21:23 Dose: 1 applic Heparin Sodium (Porcine) (Heparin -) 5,000 unit SQ BID [facility] Last Admin: 07/12/17 10:07 Dose: 5,000 unit Piperacillin/Tazobactam/Dextrose (Zosyn 2.25gm Ivpb (Premix)) 2.25 gm in 50 mls @ 100 mls/hr IVPB Q8H-IV [facility] PRN Reason: Protocol Last Admin: 07/12/17 01:28 Dose: 100 mls/hr Sodium Chloride (Normal Saline -) 500 mls @ 500 mls/hr IV [facility] Stop: 07/12/17 11:22 Lactated Ringer's (Lactated Ringers Solution) 1,000 ml in 1,000 mls @ 125 mls/ hr IV [facility] Insulin Aspart (Novolog Vial Sliding Scale -) 1 vial SQ ACHS [facility] PRN Reason: Protocol Last Admin: 07/12/17 06:47 Dose: 4 units Insulin Detemir (Levemir Vial) 45 units SQ HS [facility] Last Admin: 07/11/17 21:22 Dose: 45 unit Insulin Detemir (Levemir Vial) 15 units SQ AM [facility] Last Admin: 07/12/17 06:47 Dose: 15 units Metoprolol Succinate (Toprol Xl -) 25 mg PO DAILY [facility] Last Admin: 07/12/17 10:06 Dose: 25 mg Multivitamins/Minerals/Vitamin C (Tab-A-Vit -) 1 tab PO DAILY [facility] Last Admin: 07/12/17 10:07 Dose: 1 tab Tamsulosin HCl (Flomax -) 0.4 mg PO DAILY@0830 [facility] Last Admin: 07/12/17 09:14 Dose: 0.4 mg - Objective Vital Signs: Vital Signs Temperature 97.5 F L 07/12/17 08:41 Pulse Rate 79 07/12/17 08:41 Respiratory Rate 20 07/12/17 08:41 Blood Pressure 137/94 07/12/17 08:41 O2 Sat by Pulse Oximetry (%) 95 07/11/17 18:10 Constitutional: Yes: Well Nourished, No Distress, Calm Cardiovascular: Yes: Regular Rate and Rhythm Respiratory: Yes: Regular Gastrointestinal: Yes: Normal Bowel Sounds Musculoskeletal: Yes: WNL Extremities: Yes: WNL Edema: No Peripheral Pulses WNL: No Peripheral Pulses: Left Doralis Pedis: 0, Right Dorsalis Pedis: 0 Wound/Incision: Yes: Dressing Dry and Intact (Right foot ulcer) Neurological: Yes: Alert, Oriented Psychiatric: Yes: Alert, Oriented Labs: CBC, BMP 07/11/17 13:54 07/11/17 13:54 INR, PTT INR 1.01 (0.82-1.09) 07/11/17 13:54 Problem List - Problems (1) Rhabdomyolysis Assessment/Plan: -NS IV bolus -LR IV 125cc/hr -Nephrology consult -labs in AM Code(s): M62.82 - RHABDOMYOLYSIS (2) Abnormal liver enzymes Assessment/Plan: -GI consult appreciated -avoid hepatotoxic drugs -d/c tylenol -ordered Tramadol 50 mg po BID PRN if any pain; max dosage 100 mg/day -abd u/s unremarkable -secondary to rhabdo? -follow trend, labs in AM Code(s): R74.8 - ABNORMAL LEVELS OF OTHER SERUM ENZYMES (3) Acute on chronic renal failure Assessment/Plan: -IVF bolus -LR 125cc/hr -Nephrology consult -avoid nephrotoxic drugs Code(s): N17.9 - ACUTE KIDNEY FAILURE, UNSPECIFIED; N18.9 - CHRONIC KIDNEY DISEASE, UNSPECIFIED Qualifiers: Acute renal failure type: unspecified Chronic kidney disease stage: unspecified stage Qualified Code(s): N17.9 - Acute kidney failure, unspecified ; N18.9 - Chronic kidney disease, unspecified; N18.9 - Chronic kidney disease, unspecified (4) Dehydration Assessment/Plan: -IVF -repeat labs in AM Code(s): E86.0 - DEHYDRATION (5) UTI (urinary tract infection) due to Enterococcus Assessment/Plan: -IV abx -ID consult -afebrile Code(s): N39.0 - URINARY TRACT INFECTION, SITE NOT SPECIFIED; B95.2 - ENTEROCOCCUS THE CAUSE OF DISEASES CLASSIFIED ELSEWHERE (6) Diabetes mellitus Assessment/Plan: -seen by Endocrinology -Insulin short and long acting -avoid D5 with abx administration Code(s): E11.9 - TYPE 2 DIABETES MELLITUS WITHOUT COMPLICATIONS Qualifiers: Diabetes mellitus type: type 2 Diabetes mellitus complication status: with hyperglycemia Diabetes mellitus custodial insulin use: 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
[2017-07-12] MEDS ORDERED: LACTATED RINGERS SOLUTION 1,000 ML/1,000 ML INFUS.BAG IV SCH (11:23)
[2017-07-12] MEDS ORDERED: traMADol HCL 50 MG TABLET PO PRN (12:03)
[2017-07-12] MEDS ORDERED: PIPERACILLIN/TAZOB 2.25 GM 2.25 GM/50 ML BAG IVPB SCH (12:09)
--- NOTE | 2017-07-12 13:44 | CONSULT ---
Consult Consult Specialty:: Nephrology Referred by:: Dr. Le Reason for Consultation:: Acute renal failure - History of Present Illness History of Present Illness: 57M PMH of hypertension, hyperlipidemia, IDDM, diabetic foot ulcers, prostate cancer s/p seed implants, who presents to the emergency department with a chief complaint of nausea and vomiting. Patient states he has also had dysuria and increased urinary frequency, but denies any hematuria or urgency. He denies any abdominal pain, diarrhea, or constipation. He denies any fever, chills, headache , or dizziness. He denies any chest pain, shortness of breath, diaphoresis, or palpitations. Patient states he has been told something was wrong with his kidneys on last admission. Cr has been trending upwards and is currently at 5.8. Patient alsoseems to be in rhabdomyolysis as his CK is greater than 30K. Patient states he feels dehydrated. Asked to evaluate patient for worsening acute renal failure. Baseline Cr is around 1.2 Patient has had occasional bumps in his creatinine but never this high. Allergies: NKDA Past Surgical History: Left foot metatarsal amputation, Right toe amputation x2 , Left leg stent Social History: Former smoker. Former ETOH use. No recreational drug use, PCP: Dr. 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 Travel: No Home Medications - Allergies Allergies/Adverse Reactions: Allergies Allergy/AdvReac Type Severity Reaction Status Date / Time No Known Drug Allergies Allergy Verified 07/08/17 11:18 - Home Medications Home Medications: Ambulatory Orders Atorvastatin Calcium 40 mg PO HS 08/10/16 Amlodipine Besylate 5 mg PO DAILY 01/01/17 Aspirin [ASA -] 81 mg PO DAILY 01/01/17 Bicalutamide 50 mg PO DAILY 01/01/17 Insulin Aspart [Novolog Flexpen] 12 units SQ TID 01/01/17 Insulin Degludec [Tresiba Flextouch U-100] 45 units SQ HS 01/01/17 Metoprolol Succinate [Toprol XL -] 25 mg PO DAILY 01/01/17 Tamsulosin HCl [Flomax -] 0.4 mg PO DAILY 01/01/17 Family Disease History - Family Disease History Family Disease History: Diabetes: Father (: unclear causes), Other: Mother ( Alive: healthy. ? dementia), Brother (1, healthy, 1 : suicide), Sister (1, alive: BCA) Other Family History: No children, no family history of colorectal cancer or other GI malignancy Review of Systems - Review of Systems Constitutional: reports: Fever, Loss of Appetite Eyes: reports: No Symptoms HENT: reports: No Symptoms Neck: reports: No Symptoms Cardiovascular: reports: No Symptoms Respiratory: reports: No Symptoms Gastrointestinal: reports: Nausea, Vomiting Genitourinary: reports: Dysuria, Frequency (increased) Neurological: reports: No Symptoms Endocrine: reports: Increased Thirst Physical Exam Vital Signs: Vital Signs Temperature 97.5 F L 07/12/17 08:41 Pulse Rate 79 07/12/17 08:41 Respiratory Rate 20 07/12/17 09:00 Blood Pressure 137/94 07/12/17 08:41 O2 Sat by Pulse Oximetry (%) 95 07/11/17 18:10 Constitutional: Yes: No Distress Eyes: Yes: Conjunctiva Clear HENT: Yes: Atraumatic Neck: Yes: Supple Cardiovascular: Yes: Regular Rate and Rhythm Respiratory: Yes: CTA Bilaterally Gastrointestinal: Yes: Soft, Other (no CVA tenderness) Edema: No Labs: CBC, BMP 07/11/17 13:54 07/11/17 13:54 Imaging - Results Chest X-ray: Report Reviewed, Image Reviewed Ultrasound: Report Reviewed, Image Reviewed Assessment/Plan 57M with multiple medical problems presents to the hospital with fever and vomiting found to be in acute renal failure. Acute renal failure likely secondary to a combination of dehydration and and rhabdomyolysis rhabdomyolysis dehydration/volume depletion vomiting HTN HLD IDDM UTI Transaminitis Stop lactated ringers Start normal saline at 150ml/hr send urine electrolytes to calculate FeNa Trend Creatinine avoid nephrotoxic drugs renally dose all medications check HIV Check complement levels check DS DNA Check UA Hepatitis panel reviewed check ANCA Case discussed and patient seen with Dr. Walter
--- NOTE | 2017-07-12 14:26 | PN ---
Progress Note, Physician History of Present Illness: No recurrent N/V No c/o fever/ chills WBC WNL Renal function worsening Temps down Afebrile - Current Medication List Current Medications: Active Medications Amino Acids (Prosource No Carb Liquid Pkt) 30 ml PO BID@0800,1730 [facility] Last Admin: 07/12/17 09:14 Dose: 30 ml Amlodipine Besylate (Norvasc -) 5 mg PO DAILY [facility] Last Admin: 07/12/17 10:06 Dose: 5 mg Ascorbic Acid (Vitamin C -) 500 mg PO DAILY [facility] Last Admin: 07/12/17 10:07 Dose: 500 mg Aspirin (Ecotrin -) 81 mg PO DAILY [facility] Last Admin: 07/12/17 10:07 Dose: 81 mg Collagenase (Santyl -) 1 applic TP DAILY [facility] Last Admin: 07/11/17 21:23 Dose: 1 applic Heparin Sodium (Porcine) (Heparin -) 5,000 unit SQ BID [facility] Last Admin: 07/12/17 10:07 Dose: 5,000 unit Piperacillin/Tazobactam/Dextrose (Zosyn 2.25gm Ivpb (Premix)) 2.25 gm in 50 mls @ 100 mls/hr IVPB Q8H-IV [facility] PRN Reason: Protocol Sodium Chloride (Normal Saline -) 1,000 mls @ 150 mls/hr IV ASDIR [facility] Insulin Aspart (Novolog Vial Sliding Scale -) 1 vial SQ ACHS [facility] PRN Reason: Protocol Last Admin: 07/12/17 11:34 Dose: 6 units Insulin Detemir (Levemir Vial) 45 units SQ HS [facility] Last Admin: 07/11/17 21:22 Dose: 45 unit Insulin Detemir (Levemir Vial) 15 units SQ AM [facility] Last Admin: 07/12/17 06:47 Dose: 15 units Metoprolol Succinate (Toprol Xl -) 25 mg PO DAILY [facility] Last Admin: 07/12/17 10:06 Dose: 25 mg Multivitamins/Minerals/Vitamin C (Tab-A-Vit -) 1 tab PO DAILY [facility] Last Admin: 07/12/17 10:07 Dose: 1 tab Tamsulosin HCl (Flomax -) 0.4 mg PO DAILY@0830 [facility] Last Admin: 07/12/17 09:14 Dose: 0.4 mg Tramadol HCl (Ultram -) 50 mg PO BID PRN PRN Reason: PAIN LEVEL 6-10 - Objective Vital Signs: Vital Signs Temperature 97.5 F L 07/12/17 08:41 Pulse Rate 79 07/12/17 08:41 Respiratory Rate 20 07/12/17 09:00 Blood Pressure 137/94 07/12/17 08:41 O2 Sat by Pulse Oximetry (%) 95 07/11/17 18:10 Constitutional: Yes: No Distress Eyes: Yes: Conjunctiva Clear Cardiovascular: Yes: Regular Rate and Rhythm, S1, S2 Respiratory: Yes: CTA Bilaterally Gastrointestinal: Yes: Normal Bowel Sounds, Soft. No: Tenderness Edema: No Labs: CBC, BMP 07/11/17 13:54 07/11/17 13:54 INR, PTT INR 1.01 (0.82-1.09) 07/11/17 13:54 Assessment/Plan Sepsis- resolved Non healing plantar ulcer Hx MRSA Renal failure - multifactorial + Urine c/s = contaminant D/C antibiotics, observe off
--- NOTE | 2017-07-12 14:38 | PN ---
Teaching Attending Note Name of Resident: Ubaldo Huber (Nephrology) ATTENDING PHYSICIAN STATEMENT I saw and evaluated the patient. I reviewed the resident's note and discussed the case with the resident. I agree with the resident's findings and plan as documented. Nephrology Consult Pt is a 57 year old male with pmhx listed who initially presented to the ER with nausea and vomiting. He had several episodes of vomiting. He was also found on the floor and had rhabdo. He was noted to have worsening of his renal function and I was called to evaluate him. He denies chest pain or shortness of breath. he denies dysuria or hematuria. he is awake and alert. He is known to me from previous admissions. pmhx ckd htn dm ara proteinuria family hx denies social hx denies nkda ros fatigue Current Medications Generic Name Dose Route Start Last Admin Trade Name Freq PRN Reason Stop Dose Admin Amino Acids 30 ml 07/12/17 08:00 07/12/17 17:30 Prosource No Carb Liquid Pkt PO 30 ml BID@0800,1730 [facility] Administration Amlodipine Besylate 5 mg 07/09/17 10:00 07/12/17 10:06 Norvasc - PO 5 mg DAILY [facility] Administration Ascorbic Acid 500 mg 07/12/17 10:00 07/12/17 10:07 Vitamin C - PO 500 mg DAILY [facility] Administration Aspirin 81 mg 07/09/17 10:00 07/12/17 10:07 Ecotrin - PO 81 mg DAILY [facility] Administration Collagenase 1 applic 07/11/17 16:45 07/12/17 17:31 Santyl - TP 1 applic DAILY [facility] Administration Heparin Sodium (Porcine) 5,000 unit 07/08/17 22:00 07/12/17 10:07 Heparin - SQ 5,000 unit BID [facility] Administration Sodium Chloride 1,000 mls @ 150 mls/hr 07/12/17 14:00 Normal Saline - IV ASDIR [facility] Insulin Aspart 1 vial 07/10/17 21:54 07/12/17 17:42 Novolog Vial Sliding Scale - SQ 4 units ACHS [facility] Administration Protocol Insulin Detemir 45 units 07/08/17 22:00 07/11/17 21:22 Levemir Vial SQ 45 unit HS [facility] Administration Insulin Detemir 15 units 07/12/17 07:00 07/12/17 06:47 Levemir Vial SQ 15 units AM [facility] Administration Metoprolol Succinate 25 mg 07/09/17 10:00 07/12/17 10:06 Toprol Xl - PO 25 mg DAILY [facility] Administration Multivitamins/Minerals/Vitamin C 1 tab 07/12/17 10:00 07/12/17 10:07 Tab-A-Vit - PO 1 tab DAILY [facility] Administration Tamsulosin HCl 0.4 mg 07/09/17 08:30 07/12/17 09:14 Flomax - PO 0.4 mg DAILY@0830 [facility] Administration Tramadol HCl 50 mg 07/12/17 12:03 07/12/17 17:43 Ultram - PO 50 mg BID PRN Administration PAIN LEVEL 6-10 Laboratory Tests 07/08/17 07/08/17 07/08/17 13:01 13:01 14:53 Hgb Eosinophils % Creatine Kinase 97312 H Urine Protein Urine Blood 3+ H Ur Random Sodium Urine Creatinine Acetone, Qual Negative Hep Bs Antigen Hep B Core IgM Ab Hepatitis C Antibody HIV 1&2 Antibody Screen HIV P24 Antigen 07/08/17 07/09/17 07/10/17 21:00 14:30 05:05 Hgb Eosinophils % Creatine Kinase 97772 H Urine Protein Urine Blood Ur Random Sodium Urine Creatinine Acetone, Qual Hep Bs Antigen Negative Negative Hep B Core IgM Ab Negative Hepatitis C Antibody <0.1 HIV 1&2 Antibody Screen HIV P24 Antigen 07/11/17 07/12/17 07/12/17 13:54 14:30 14:30 Hgb 11.2 L 11.0 L Eosinophils % 7.6 H D 7.0 H Creatine Kinase Urine Protein Urine Blood Ur Random Sodium Urine Creatinine Acetone, Qual Hep Bs Antigen Hep B Core IgM Ab Hepatitis C Antibody HIV 1&2 Antibody Screen Pending HIV P24 Antigen Pending 07/12/17 07/12/17 16:00 16:00 Hgb Eosinophils % Creatine Kinase Urine Protein Negative Urine Blood 2+ H Ur Random Sodium Pending Urine Creatinine Pending Acetone, Qual Hep Bs Antigen Hep B Core IgM Ab Hepatitis C Antibody HIV 1&2 Antibody Screen HIV P24 Antigen renal ultrasound reviewed cxr reviewed general pt appears comfortable GI soft bs positive cardio s1s2 reg pulm cleat ext neg edema neuro awake psych calm skin neg rash circ pos pulses Impression 1. CKD 2. ARA 3. HTN 4. DM 5. proteinuria 6. hyperlipidemia 7. sepsis 8. rhabdo 9. peripheral eosinophilia Plan - will send workup for ARA - change fluids to ns - repeat cpk now and in am - check myoglobin - check bernie anca c3 c4 anti gbm - may need kidney biopsy - monitor urine output, he does not want a gayle - renal ultrasound reviewed - check urine lytes and edge roller to calc fena - check prt to edge roller ratio - repeat bmp in am - no indication for HD at this point - follow urine eos - will follow closely Dr Walter
[2017-07-12 15:37] LABS: BASO % 0.4 % (0-2.0); HEMATOCRIT 32.7 % (35.4-49); LYMPH % 15.4 % (8-40); MCH 26.8 pg (25.7-33.7); MCHC 33.8 g/dl (32.0-35.9); MEAN CELL VOLUME 79.2 fl (80-96); MEAN PLT VOLUME 8.8 fl (7.5-11.1); MONO % 6.9 % (3.8-10.2); NEUT % 70.3 % (42.8-82.8); PLATELET COUNT 196 K/MM3 (134-434); RBC 4.13 M/mm3 (4.00-5.60); RDW 15.5 % (11.9-15.9); WHITE BLOOD COUNT 7.2 K/mm3 (4.0-10.0)
[2017-07-12 16:03] LABS: ALBUMIN 3.1 g/dl (3.4-5.0); ALK PHOS 122 U/L (45-117); ANION GAP 12 (8-16); BILIRUBIN,DIRECT < 0.2 mg/dL (0.0-0.2); BILIRUBIN,TOTAL 0.4 mg/dL (0.2-1.0); BLOOD UREA NITROGEN 81 mg/dL (7-18); CALCIUM 8.3 mg/dL (8.5-10.1); CHLORIDE 106 mmol/L (98-107); CO2 21 mmol/L (21-32); CREATININE 5.9 mg/dL (0.7-1.3); GLUCOSE,RANDOM 179 mg/dL (74-106); POTASSIUM 4.8 mmol/L (3.5-5.1); SGOT/AST 308 U/L (15-37); SGPT/ALT 180 U/L (12-78); SODIUM 139 mmol/L (136-145); TOT PROT 6.8 g/dl (6.4-8.2)
[2017-07-12 16:34] LABS: INR 0.95 (0.82-1.09); PROTHROMBIN TIME (PATIENT) 10.7 SEC (9.98-11.88)
--- NOTE | 2017-07-12 16:50 | PN ---
Progress Note, Physician History of Present Illness: No events. Comfortable. Offers no GI-related complains. Liver chemistry slightly up. - Current Medication List Current Medications: Active Medications Amino Acids (Prosource No Carb Liquid Pkt) 30 ml PO BID@0800,1730 [facility] Last Admin: 07/12/17 09:14 Dose: 30 ml Amlodipine Besylate (Norvasc -) 5 mg PO DAILY [facility] Last Admin: 07/12/17 10:06 Dose: 5 mg Ascorbic Acid (Vitamin C -) 500 mg PO DAILY [facility] Last Admin: 07/12/17 10:07 Dose: 500 mg Aspirin (Ecotrin -) 81 mg PO DAILY [facility] Last Admin: 07/12/17 10:07 Dose: 81 mg Collagenase (Santyl -) 1 applic TP DAILY [facility] Last Admin: 07/11/17 21:23 Dose: 1 applic Heparin Sodium (Porcine) (Heparin -) 5,000 unit SQ BID [facility] Last Admin: 07/12/17 10:07 Dose: 5,000 unit Sodium Chloride (Normal Saline -) 1,000 mls @ 150 mls/hr IV ASDIR [facility] Insulin Aspart (Novolog Vial Sliding Scale -) 1 vial SQ ACHS [facility] PRN Reason: Protocol Last Admin: 07/12/17 11:34 Dose: 6 units Insulin Detemir (Levemir Vial) 45 units SQ HS [facility] Last Admin: 07/11/17 21:22 Dose: 45 unit Insulin Detemir (Levemir Vial) 15 units SQ AM [facility] Last Admin: 07/12/17 06:47 Dose: 15 units Metoprolol Succinate (Toprol Xl -) 25 mg PO DAILY [facility] Last Admin: 07/12/17 10:06 Dose: 25 mg Multivitamins/Minerals/Vitamin C (Tab-A-Vit -) 1 tab PO DAILY [facility] Last Admin: 07/12/17 10:07 Dose: 1 tab Tamsulosin HCl (Flomax -) 0.4 mg PO DAILY@0830 [facility] Last Admin: 07/12/17 09:14 Dose: 0.4 mg Tramadol HCl (Ultram -) 50 mg PO BID PRN PRN Reason: PAIN LEVEL 6-10 - Objective Vital Signs: Vital Signs Temperature 97.5 F L 07/12/17 08:41 Pulse Rate 79 07/12/17 08:41 Respiratory Rate 20 07/12/17 09:00 Blood Pressure 137/94 07/12/17 08:41 O2 Sat by Pulse Oximetry (%) 95 07/11/17 18:10 Constitutional: Yes: No Distress, Calm Eyes: Yes: Conjunctiva Clear. No: Sclera Icterus Neurological: Yes: Alert, Oriented Labs: CBC, BMP 07/12/17 14:30 07/12/17 14:30 INR, PTT INR 0.95 (0.82-1.09) 07/12/17 14:30 CBCD WBC 7.2 K/mm3 (4.0-10.0) 07/12/17 14:30 RBC 4.13 M/mm3 (4.00-5.60) 07/12/17 14:30 Hgb 11.0 GM/dL (11.7-16.9) L 07/12/17 14:30 Hct 32.7 % (35.4-49) L 07/12/17 14:30 MCV 79.2 fl (80-96) L 07/12/17 14:30 MCHC 33.8 g/dl (32.0-35.9) 07/12/17 14:30 RDW 15.5 % (11.9-15.9) 07/12/17 14:30 Plt Count 196 K/MM3 (134-434) D 07/12/17 14:30 MPV 8.8 fl (7.5-11.1) 07/12/17 14:30 CMP Sodium 139 mmol/L (136-145) 07/12/17 14:30 Potassium 4.8 mmol/L (3.5-5.1) 07/12/17 14:30 Chloride 106 mmol/L (98-107) 07/12/17 14:30 Carbon Dioxide 21 mmol/L (21-32) 07/12/17 14:30 Anion Gap 12 (8-16) 07/12/17 14:30 BUN 81 mg/dL (7-18) H 07/12/17 14:30 Creatinine 5.9 mg/dL (0.7-1.3) H 07/12/17 14:30 Creat Clearance w eGFR 9.86 (>60) 07/12/17 14:30 Calcium 8.3 mg/dL (8.5-10.1) L 07/12/17 14:30 Total Bilirubin 0.4 mg/dL (0.2-1.0) D 07/12/17 14:30 AST 308 U/L (15-37) H 07/12/17 14:30 ALT 180 U/L (12-78) H 07/12/17 14:30 Alkaline Phosphatase 122 U/L (45-117) H 07/12/17 14:30 Total Protein 6.8 g/dl (6.4-8.2) 07/12/17 14:30 Albumin 3.1 g/dl (3.4-5.0) L 07/12/17 14:30 - ....Imaging Ultrasound: Report Reviewed (liver, renal) Problem List - Problems (1) Drug-induced hepatic toxicity Code(s): K71.6 - TOXIC LIVER DISEASE WITH HEPATITIS, NOT ELSEWHERE CLASSIFIED; T50.905A - ADVERSE EFFECT OF UNSP DRUG/MEDS/BIOL SUBST, INIT (2) Drug-induced hepatitis Code(s): K71.6 - TOXIC LIVER DISEASE WITH HEPATITIS, NOT ELSEWHERE CLASSIFIED; T50.905A - ADVERSE EFFECT OF UNSP DRUG/MEDS/BIOL SUBST, INIT (3) Abnormal liver enzymes Code(s): R74.8 - ABNORMAL LEVELS OF OTHER SERUM ENZYMES Assessment/Plan Will continue to monitor Daily liver chemistry including bili and ALP, PT, INR Stop all hepatotoxic medications It will take few weeks for the liver chem to normalize after an offending agent has been removed. Follow up as OP for autoimune liver work up
[2017-07-12 16:55] LABS: URINE APPEARANCE CLEAR; URINE BILIRUBIN NEGATIVE (NEGATIVE); URINE BLOOD 2+ (NEGATIVE); URINE COLOR STRAW; URINE GLUCOSE (UA) 2+ (NEGATIVE); URINE KETONE NEGATIVE (NEGATIVE); URINE LEUK ESTERASE NEGATIVE (NEGATIVE); URINE NITRITE NEGATIVE (NEGATIVE); URINE PROTEIN NEGATIVE (NEGATIVE); URINE UROBILINOGEN NEGATIVE mg/dL (0.2-1.0)
[2017-07-12] MEDS: COLLAGENASE CLOSTRIDIUM HIST. 30 GRAMS TUBE TP SCH (17:31)
[2017-07-12] MEDS: SODIUM CHLORIDE 1,000 ML IV SCH (17:54)
[2017-07-12 18:22] LABS: URINE CREATININE 36.6 mg/dL (20-370)
[2017-07-12] MEDS ORDERED: INSULIN DETEMIR 100 UNITS/ML MDV SQ ONE (19:12)
[2017-07-13] MEDS: INSULIN SLIDING SCALE (NOVOLOG) 1 VIAL SQ SCH ×4 (06:10→21:40)
[2017-07-13] MEDS: SODIUM CHLORIDE 1,000 ML IV SCH ×2 (06:33→14:48)
[2017-07-13] MEDS: INSULIN DETEMIR 100 UNITS/ML MDV SQ SCH ×2 (06:33→21:40)
[2017-07-13] MEDS ORDERED: INSULIN (NOVOLOG) ASPART 100 UNITS/ML 10ML VIAL ONE ×2 (06:36→20:17)
[2017-07-13 08:12] LABS: HEMATOCRIT 31.2 % (35.4-49); HEMOGLOBIN 10.5 GM/dL (11.7-16.9); MCH 26.3 pg (25.7-33.7); MCHC 33.6 g/dl (32.0-35.9); MEAN CELL VOLUME 78.4 fl (80-96); MEAN PLT VOLUME 8.4 fl (7.5-11.1); PLATELET COUNT 168 K/MM3 (134-434); RBC 3.98 M/mm3 (4.00-5.60); RDW 15.5 % (11.9-15.9); WHITE BLOOD COUNT 7.3 K/mm3 (4.0-10.0)
[2017-07-13] MEDS: TAMSULOSIN HCL 0.4 MG CAP.ER.24H (FP) PO SCH (09:24)
[2017-07-13] MEDS: amLODIPine BESYLATE 5 MG TABLET (FP) PO SCH (09:24)
[2017-07-13] MEDS: MULTIVITAMINS (DAILY MVI) TABLET (FP) PO SCH (09:24)
[2017-07-13] MEDS: METOPROLOL SUCCINATE 25 MG TAB.SR.24H (FP) PO SCH (09:24)
[2017-07-13] MEDS: ASPIRIN COATED 81 MG TABLET.EC PO SCH (09:24)
[2017-07-13] MEDS: HEPARIN NA (PORCINE) 5,000 UNITS/ML 1ML VIAL SQ SCH ×2 (09:25→21:39)
[2017-07-13] MEDS: ASCORBIC ACID 500 MG TABLET (FP) PO SCH (09:25)
[2017-07-13] MEDS: AMINO ACIDS/PROTEIN HYDROLYS 30 ML LIQUID.PKT PO SCH ×2 (09:27→17:47)
--- NOTE | 2017-07-13 09:36 | PN ---
Progress Note, Physician History of Present Illness: patient seen and examined at bedside Labs pending patient states he had one episode of vomiting this morning but feels better today - Current Medication List Current Medications: Active Medications Amino Acids (Prosource No Carb Liquid Pkt) 30 ml PO BID@0800,1730 [facility] Last Admin: 07/13/17 09:27 Dose: Not Given Amlodipine Besylate (Norvasc -) 5 mg PO DAILY [facility] Last Admin: 07/13/17 09:24 Dose: 5 mg Ascorbic Acid (Vitamin C -) 500 mg PO DAILY [facility] Last Admin: 07/13/17 09:25 Dose: 500 mg Aspirin (Ecotrin -) 81 mg PO DAILY [facility] Last Admin: 07/13/17 09:24 Dose: 81 mg Collagenase (Santyl -) 1 applic TP DAILY [facility] Last Admin: 07/12/17 17:31 Dose: 1 applic Heparin Sodium (Porcine) (Heparin -) 5,000 unit SQ BID [facility] Last Admin: 07/13/17 09:25 Dose: 5,000 unit Sodium Chloride (Normal Saline -) 1,000 mls @ 150 mls/hr IV ASDIR [facility] Last Admin: 07/13/17 06:33 Dose: 150 mls/hr Insulin Aspart (Novolog Vial Sliding Scale -) 1 vial SQ ACHS [facility] PRN Reason: Protocol Last Admin: 07/13/17 06:10 Dose: Not Given Insulin Detemir (Levemir Vial) 45 units SQ HS [facility] Last Admin: 07/12/17 22:01 Dose: 45 unit Insulin Detemir (Levemir Vial) 15 units SQ AM [facility] Last Admin: 07/13/17 06:33 Dose: 15 units Metoprolol Succinate (Toprol Xl -) 25 mg PO DAILY [facility] Last Admin: 07/13/17 09:24 Dose: 25 mg Multivitamins/Minerals/Vitamin C (Tab-A-Vit -) 1 tab PO DAILY [facility] Last Admin: 07/13/17 09:24 Dose: 1 tab Tamsulosin HCl (Flomax -) 0.4 mg PO DAILY@0830 [facility] Last Admin: 07/13/17 09:24 Dose: 0.4 mg Tramadol HCl (Ultram -) 50 mg PO BID PRN PRN Reason: PAIN LEVEL 6-10 Last Admin: 07/12/17 17:43 Dose: 50 mg - Objective Vital Signs: Vital Signs Temperature 97.5 F L 07/13/17 09:32 Pulse Rate 84 07/13/17 09:32 Respiratory Rate 20 07/13/17 09:32 Blood Pressure 123/70 07/13/17 09:32 O2 Sat by Pulse Oximetry (%) 98 07/12/17 21:00 Constitutional: Yes: No Distress Eyes: Yes: Conjunctiva Clear HENT: Yes: Atraumatic Neck: Yes: Supple Cardiovascular: Yes: Regular Rate and Rhythm Respiratory: Yes: CTA Bilaterally Gastrointestinal: Yes: Soft, Other (no CVA tenderness) Edema: No Labs: CBC, BMP 07/13/17 07:12 07/12/17 14:30 INR, PTT INR 0.95 (0.82-1.09) 07/12/17 14:30 Assessment/Plan 57M with multiple medical problems presents to the hospital with fever and vomiting found to be in acute renal failure. Acute renal failure likely secondary to a combination of dehydration and and rhabdomyolysis rhabdomyolysis dehydration/volume depletion vomiting HTN HLD IDDM UTI Transaminitis peripheral eosinophilia continue normal saline at 150ml/hr FeNa 8.1% Trend Creatinine Improving today Cr 5.5 down from 5.9 Urine eosinophils pending avoid nephrotoxic drugs renally dose all medications HIV negative complement levels pending DS DNA pending ANCA pending Hepatitis panel reviewed AST improved otherwide rest of LFTs unchanged from yesterday Continue strict I/Os CPK improving Case discussed and patient seen with Dr. Walter
[2017-07-13 10:03] LABS: ALK PHOS 118 U/L (45-117); ANION GAP 13 (8-16); BILIRUBIN,TOTAL 0.3 mg/dL (0.2-1.0); BLOOD UREA NITROGEN 73 mg/dL (7-18); CALCIUM 8.1 mg/dL (8.5-10.1); CHLORIDE 112 mmol/L (98-107); CO2 19 mmol/L (21-32); CREATININE 5.5 mg/dL (0.7-1.3); GLUCOSE,RANDOM 101 mg/dL (74-106); POTASSIUM 4.1 mmol/L (3.5-5.1); SGOT/AST 230 U/L (15-37); SGPT/ALT 182 U/L (12-78); SODIUM 144 mmol/L (136-145); TOT PROT 6.6 g/dl (6.4-8.2)
--- NOTE | 2017-07-13 10:40 | PN ---
Progress Note, Physician Chief Complaint: Dehydration, Rhabdomylosis History of Present Illness: NAD, in bed labs reviewed received IVF BUN/Cr improving seen by nephrology seen by GI for rising liver enzymes seen by ID for UTI- abx discontinued. Pt asymptomatic. UC contaminated, less than 100,000 growth daily CBC,CMP,PT,INR and bili CK-MB improving after hydration immunology pending independent, self ambulatory - Current Medication List Current Medications: Active Medications Amino Acids (Prosource No Carb Liquid Pkt) 30 ml PO BID@0800,1730 [facility] Last Admin: 07/13/17 09:27 Dose: Not Given Amlodipine Besylate (Norvasc -) 5 mg PO DAILY [facility] Last Admin: 07/13/17 09:24 Dose: 5 mg Ascorbic Acid (Vitamin C -) 500 mg PO DAILY [facility] Last Admin: 07/13/17 09:25 Dose: 500 mg Aspirin (Ecotrin -) 81 mg PO DAILY [facility] Last Admin: 07/13/17 09:24 Dose: 81 mg Collagenase (Santyl -) 1 applic TP DAILY [facility] Last Admin: 07/12/17 17:31 Dose: 1 applic Heparin Sodium (Porcine) (Heparin -) 5,000 unit SQ BID [facility] Last Admin: 07/13/17 09:25 Dose: 5,000 unit Sodium Chloride (Normal Saline -) 1,000 mls @ 150 mls/hr IV ASDIR [facility] Last Admin: 07/13/17 06:33 Dose: 150 mls/hr Insulin Aspart (Novolog Vial Sliding Scale -) 1 vial SQ ACHS [facility] PRN Reason: Protocol Last Admin: 07/13/17 06:10 Dose: Not Given Insulin Detemir (Levemir Vial) 45 units SQ HS [facility] Last Admin: 07/12/17 22:01 Dose: 45 unit Insulin Detemir (Levemir Vial) 15 units SQ AM [facility] Last Admin: 07/13/17 06:33 Dose: 15 units Metoprolol Succinate (Toprol Xl -) 25 mg PO DAILY [facility] Last Admin: 07/13/17 09:24 Dose: 25 mg Multivitamins/Minerals/Vitamin C (Tab-A-Vit -) 1 tab PO DAILY [facility] Last Admin: 07/13/17 09:24 Dose: 1 tab Tamsulosin HCl (Flomax -) 0.4 mg PO DAILY@0830 [facility] Last Admin: 07/13/17 09:24 Dose: 0.4 mg Tramadol HCl (Ultram -) 50 mg PO BID PRN PRN Reason: PAIN LEVEL 6-10 Last Admin: 07/12/17 17:43 Dose: 50 mg - Objective Vital Signs: Vital Signs Temperature 97.5 F L 07/13/17 09:32 Pulse Rate 84 07/13/17 09:32 Respiratory Rate 20 07/13/17 09:32 Blood Pressure 123/70 07/13/17 09:32 O2 Sat by Pulse Oximetry (%) 98 07/12/17 21:00 Constitutional: Yes: Well Nourished, No Distress, Calm Cardiovascular: Yes: Regular Rate and Rhythm Respiratory: Yes: Regular Gastrointestinal: Yes: WNL, Normal Bowel Sounds, Soft Musculoskeletal: Yes: WNL Extremities: Yes: WNL (BL multiple toes), Amputation Edema: No Peripheral Pulses WNL: No Peripheral Pulses: Left Doralis Pedis: 0, Right Dorsalis Pedis: 0 Wound/Incision: Yes: Dressing Dry and Intact Neurological: Yes: Alert, Oriented Psychiatric: Yes: Alert, Oriented Labs: CBC, BMP 07/13/17 07:12 07/13/17 07:12 INR, PTT INR 0.95 (0.82-1.09) 07/12/17 14:30 Problem List - Problems (1) Rhabdomyolysis Assessment/Plan: -improving, -CK-MB trending down -myoglobin serum and urine pending -immunology panel pending -Nephrology consult -labs in AM Code(s): M62.82 - RHABDOMYOLYSIS (2) Abnormal liver enzymes Assessment/Plan: -GI consult appreciated -avoid hepatotoxic drugs -d/c tylenol, abx discontinued -ordered Tramadol 50 mg po BID PRN if any pain; max dosage 100 mg/day -abd u/s unremarkable -secondary to rhabdo? -follow trend, labs in AM Code(s): R74.8 - ABNORMAL LEVELS OF OTHER SERUM ENZYMES (3) Acute on chronic renal failure Assessment/Plan: -IVF -BUN/Cr improving -Nephrology consult -avoid nephrotoxic drugs -patient is urinating, no electrolyte imbalance, no dialysis indicated at this time. Code(s): N17.9 - ACUTE KIDNEY FAILURE, UNSPECIFIED; N18.9 - CHRONIC KIDNEY DISEASE, UNSPECIFIED Qualifiers: Acute renal failure type: unspecified Chronic kidney disease stage: unspecified stage Qualified Code(s): N17.9 - Acute kidney failure, unspecified ; N18.9 - Chronic kidney disease, unspecified; N18.9 - Chronic kidney disease, unspecified (4) Dehydration Assessment/Plan: -IVF -repeat labs in AM Code(s): E86.0 - DEHYDRATION (5) UTI (urinary tract infection) due to Enterococcus Assessment/Plan: -IV abx discontinued -UC contaminated -ID consult -afebrile Code(s): N39.0 - URINARY TRACT INFECTION, SITE NOT SPECIFIED; B95.2 - ENTEROCOCCUS THE CAUSE OF DISEASES CLASSIFIED ELSEWHERE (6) Diabetes mellitus Assessment/Plan: -seen by Endocrinology -Insulin short and long acting -improving trend -diabetic diet Code(s): E11.9 - TYPE 2 DIABETES MELLITUS WITHOUT COMPLICATIONS Qualifiers: Diabetes mellitus type: type 2 Diabetes mellitus complication status: with hyperglycemia Diabetes mellitus chcf insulin use: with chcf use Qualified Code(s): E11.65 - Type 2 diabetes mellitus with hyperglycemia (7) Anemia Assessment/Plan: -likely dilutional -2/2 chronic disease -check stool OB, Iron profile, B 12, TSH,FT4, Folate Code(s): D64.9 - ANEMIA, UNSPECIFIED Assessment/Plan see problem list
--- NOTE | 2017-07-13 12:29 | PN ---
Teaching Attending Note Name of Resident: Ubaldo Huber (Nephrology) ATTENDING PHYSICIAN STATEMENT I saw and evaluated the patient. I reviewed the resident's note and discussed the case with the resident. I agree with the resident's findings and plan as documented. Renal Follow up Pt seen and examined at bedside. He did have an episode of vomiting. Current Medications Generic Name Dose Route Start Last Admin Trade Name Rob PRN Reason Stop Dose Admin Amino Acids 30 ml 07/12/17 08:00 07/13/17 09:27 Prosource No Carb Liquid Pkt PO Not Given BID@0800,1730 [facility] Amlodipine Besylate 5 mg 07/09/17 10:00 07/13/17 09:24 Norvasc - PO 5 mg DAILY [facility] Administration Ascorbic Acid 500 mg 07/12/17 10:00 07/13/17 09:25 Vitamin C - PO 500 mg DAILY [facility] Administration Aspirin 81 mg 07/09/17 10:00 07/13/17 09:24 Ecotrin - PO 81 mg DAILY [facility] Administration Collagenase 1 applic 07/11/17 16:45 07/12/17 17:31 Santyl - TP 1 applic DAILY [facility] Administration Heparin Sodium (Porcine) 5,000 unit 07/08/17 22:00 07/13/17 09:25 Heparin - SQ 5,000 unit BID [facility] Administration Sodium Chloride 1,000 mls @ 150 mls/hr 07/12/17 14:00 07/13/17 06:33 Normal Saline - IV 150 mls/hr ASDIR [facility] Administration Insulin Aspart 1 vial 07/10/17 21:54 07/13/17 12:08 Novolog Vial Sliding Scale - SQ 4 units ACHS [facility] Administration Protocol Insulin Detemir 45 units 07/08/17 22:00 07/12/17 22:01 Levemir Vial SQ 45 unit HS [facility] Administration Insulin Detemir 15 units 07/12/17 07:00 07/13/17 06:33 Levemir Vial SQ 15 units AM [facility] Administration Metoprolol Succinate 25 mg 07/09/17 10:00 07/13/17 09:24 Toprol Xl - PO 25 mg DAILY [facility] Administration Multivitamins/Minerals/Vitamin C 1 tab 07/12/17 10:00 07/13/17 09:24 Tab-A-Vit - PO 1 tab DAILY [facility] Administration Tamsulosin HCl 0.4 mg 07/09/17 08:30 07/13/17 09:24 Flomax - PO 0.4 mg DAILY@0830 [facility] Administration Tramadol HCl 50 mg 07/12/17 12:03 07/12/17 17:43 Ultram - PO 50 mg BID PRN Administration PAIN LEVEL 6-10 Laboratory Tests 07/12/17 07/13/17 07/13/17 14:30 07:12 07:12 Hgb 10.5 L BUN 73 H Creatinine 5.5 H Creatine Kinase 2231 H c-ANCA Pending Proteinase 3 (PR3) Pending p-ANCA Pending Atypical p-ANCA Pending Myeloperoxidase Ab Pending Double Strand DNA Ab Pending Glomerular Base Memb Ab 07/13/17 07:12 Hgb BUN Creatinine Creatine Kinase c-ANCA Proteinase 3 (PR3) p-ANCA Atypical p-ANCA Myeloperoxidase Ab Double Strand DNA Ab Glomerular Base Memb Ab Pending general pt appears comfortable GI soft bs positive cardio s1s2 reg pulm cleat ext neg edema neuro awake psych calm skin neg rash circ pos pulses Impression 1. CKD 2. ARA 3. HTN 4. DM 5. proteinuria 6. hyperlipidemia 7. sepsis 8. rhabdo 9. peripheral eosinophilia Plan - renal function is improving - renal workup is in progress - rhabdo is improving - repeat labs in am - monitor urine output, he does not want a gayle - discussed with resident
[2017-07-13] MEDS: COLLAGENASE CLOSTRIDIUM HIST. 30 GRAMS TUBE TP SCH (14:47)
[2017-07-14] MEDS: INSULIN SLIDING SCALE (NOVOLOG) 1 VIAL SQ SCH ×4 (06:13→21:46)
[2017-07-14] MEDS: INSULIN DETEMIR 100 UNITS/ML MDV SQ SCH ×2 (06:50→21:46)
[2017-07-14] MEDS ORDERED: INSULIN DETEMIR 100 UNITS/ML MDV SQ ONE (07:04)
[2017-07-14] MEDS ORDERED: INSULIN (NOVOLOG) ASPART 100 UNITS/ML 10ML VIAL ONE ×2 (07:04→20:02)
[2017-07-14 07:30] LABS: BASO % 0.5 % (0-2.0); EOS % 6.3 % (0-4.5); HEMATOCRIT 31.4 % (35.4-49); HEMOGLOBIN 10.5 GM/dL (11.7-16.9); MCH 26.4 pg (25.7-33.7); MCHC 33.4 g/dl (32.0-35.9); MEAN PLT VOLUME 8.3 fl (7.5-11.1); MONO % 7.1 % (3.8-10.2); NEUT % 73.1 % (42.8-82.8); PLATELET COUNT 183 K/MM3 (134-434); RBC 3.97 M/mm3 (4.00-5.60); RDW 15.3 % (11.9-15.9); WHITE BLOOD COUNT 7.9 K/mm3 (4.0-10.0)
[2017-07-14 08:02] LABS: INR 0.98 (0.82-1.09); PROTHROMBIN TIME (PATIENT) 11.1 SEC (9.98-11.88)
[2017-07-14 08:05] LABS: ACTIVATED PTT 28.4 SECONDS (26.9-34.4)
[2017-07-14 08:06] LABS: SERUM IRON SATURATION 30 % (15-55); TOTAL IRON BINDING CAPACITY 266 ug/dL (250-450); UIBC 186 ug/dL (111-343)
[2017-07-14 08:14] LABS: BLOOD UREA NITROGEN 66 mg/dL (7-18); CALCIUM 8.3 mg/dL (8.5-10.1); CHLORIDE 110 mmol/L (98-107); GLUCOSE,RANDOM 92 mg/dL (74-106); POTASSIUM 4.1 mmol/L (3.5-5.1); SODIUM 144 mmol/L (136-145)
[2017-07-14 08:28] LABS: ALK PHOS 120 U/L (45-117); ANION GAP 12 (8-16); BILIRUBIN,TOTAL 0.4 mg/dL (0.2-1.0); CO2 22 mmol/L (21-32); CREATININE 4.8 mg/dL (0.7-1.3); SGOT/AST 193 U/L (15-37); SGPT/ALT 206 U/L (12-78); TOT PROT 6.6 g/dl (6.4-8.2)
--- NOTE | 2017-07-14 10:00 | PN ---
Progress Note, Physician Chief Complaint: Dehydration, Rhabdomylosis History of Present Illness: NAD, in bed labs reviewed received IVF BUN/Cr improving seen by nephrology seen by GI for rising liver enzymes seen by ID for UTI- abx discontinued. Pt asymptomatic. UC contaminated, less than 100,000 growth daily CBC,CMP,PT,INR and bili CK-MB improving after hydration immunology pending independent, self ambulatory - Current Medication List Current Medications: Active Medications Amino Acids (Prosource No Carb Liquid Pkt) 30 ml PO BID@0800,1730 [facility] Last Admin: 07/13/17 17:47 Dose: Not Given Amlodipine Besylate (Norvasc -) 5 mg PO DAILY [facility] Last Admin: 07/13/17 09:24 Dose: 5 mg Ascorbic Acid (Vitamin C -) 500 mg PO DAILY [facility] Last Admin: 07/13/17 09:25 Dose: 500 mg Aspirin (Ecotrin -) 81 mg PO DAILY [facility] Last Admin: 07/13/17 09:24 Dose: 81 mg Collagenase (Santyl -) 1 applic TP DAILY [facility] Last Admin: 07/13/17 14:47 Dose: 1 applic Heparin Sodium (Porcine) (Heparin -) 5,000 unit SQ BID [facility] Last Admin: 07/13/17 21:39 Dose: 5,000 unit Sodium Chloride (Normal Saline -) 1,000 mls @ 150 mls/hr IV ASDIR [facility] Last Admin: 07/13/17 14:48 Dose: 150 mls/hr Insulin Aspart (Novolog Vial Sliding Scale -) 1 vial SQ ACHS [facility] PRN Reason: Protocol Last Admin: 07/14/17 06:13 Dose: Not Given Insulin Detemir (Levemir Vial) 45 units SQ HS [facility] Last Admin: 07/13/17 21:40 Dose: 45 unit Insulin Detemir (Levemir Vial) 15 units SQ AM [facility] Last Admin: 07/14/17 06:50 Dose: Not Given Metoprolol Succinate (Toprol Xl -) 25 mg PO DAILY [facility] Last Admin: 07/13/17 09:24 Dose: 25 mg Multivitamins/Minerals/Vitamin C (Tab-A-Vit -) 1 tab PO DAILY [facility] Last Admin: 07/13/17 09:24 Dose: 1 tab Tamsulosin HCl (Flomax -) 0.4 mg PO DAILY@0830 [facility] Last Admin: 07/13/17 09:24 Dose: 0.4 mg Tramadol HCl (Ultram -) 50 mg PO BID PRN PRN Reason: PAIN LEVEL 6-10 Last Admin: 07/12/17 17:43 Dose: 50 mg - Objective Vital Signs: Vital Signs Temperature 97.7 F 07/14/17 06:15 Pulse Rate 81 07/14/17 06:15 Respiratory Rate 20 07/14/17 06:15 Blood Pressure 145/76 07/14/17 06:15 O2 Sat by Pulse Oximetry (%) 98 07/13/17 21:00 Constitutional: Yes: Well Nourished, No Distress, Calm Cardiovascular: Yes: Regular Rate and Rhythm Respiratory: Yes: Regular Gastrointestinal: Yes: Normal Bowel Sounds, Soft Musculoskeletal: Yes: WNL Extremities: Yes: WNL Edema: No Peripheral Pulses WNL: No Peripheral Pulses: Left Doralis Pedis: 0, Right Dorsalis Pedis: 0 Wound/Incision: Yes: Dressing Dry and Intact Neurological: Yes: Alert, Oriented Psychiatric: Yes: Alert, Oriented Labs: CBC, BMP 07/14/17 06:00 07/14/17 06:00 INR, PTT INR 0.98 (0.82-1.09) 07/14/17 06:00 Problem List - Problems (1) Rhabdomyolysis Assessment/Plan: -improving, -CK-MB trending down -myoglobin serum and urine pending -immunology panel pending -Nephrology consult -labs in AM Code(s): M62.82 - RHABDOMYOLYSIS (2) Abnormal liver enzymes Assessment/Plan: -GI consult appreciated -avoid hepatotoxic drugs -d/c tylenol, abx discontinued -ordered Tramadol 50 mg po BID PRN if any pain; max dosage 100 mg/day -abd u/s unremarkable -secondary to rhabdo? -follow trend, labs in AM Code(s): R74.8 - ABNORMAL LEVELS OF OTHER SERUM ENZYMES (3) Acute on chronic renal failure Assessment/Plan: -IVF -BUN/Cr improving -Nephrology consult -avoid nephrotoxic drugs -patient is urinating, no electrolyte imbalance, no dialysis indicated at this time. Code(s): N17.9 - ACUTE KIDNEY FAILURE, UNSPECIFIED; N18.9 - CHRONIC KIDNEY DISEASE, UNSPECIFIED Qualifiers: Acute renal failure type: unspecified Chronic kidney disease stage: unspecified stage Qualified Code(s): N17.9 - Acute kidney failure, unspecified ; N18.9 - Chronic kidney disease, unspecified; N18.9 - Chronic kidney disease, unspecified (4) Dehydration Assessment/Plan: -IVF -repeat labs in AM Code(s): E86.0 - DEHYDRATION (5) UTI (urinary tract infection) due to Enterococcus Assessment/Plan: -IV abx discontinued -UC contaminated -ID consult -afebrile Code(s): N39.0 - URINARY TRACT INFECTION, SITE NOT SPECIFIED; B95.2 - ENTEROCOCCUS THE CAUSE OF DISEASES CLASSIFIED ELSEWHERE (6) Diabetes mellitus Assessment/Plan: -seen by Endocrinology -Insulin short and long acting -improving trend -diabetic diet Code(s): E11.9 - TYPE 2 DIABETES MELLITUS WITHOUT COMPLICATIONS Qualifiers: Diabetes mellitus type: type 2 Diabetes mellitus complication status: with hyperglycemia Diabetes mellitus fci insulin use: with rat exterminator use Qualified Code(s): E11.65 - Type 2 diabetes mellitus with hyperglycemia (7) Anemia Assessment/Plan: -likely dilutional -2/2 chronic disease -stool OB pending -Iron profile, B 12, TSH,FT4, Folate normal Code(s): D64.9 - ANEMIA, UNSPECIFIED Assessment/Plan see problem list
[2017-07-14] MEDS: METOPROLOL SUCCINATE 25 MG TAB.SR.24H (FP) PO SCH (10:50)
[2017-07-14] MEDS: ASPIRIN COATED 81 MG TABLET.EC PO SCH (10:50)
[2017-07-14] MEDS: MULTIVITAMINS (DAILY MVI) TABLET (FP) PO SCH (10:50)
[2017-07-14] MEDS: TAMSULOSIN HCL 0.4 MG CAP.ER.24H (FP) PO SCH (10:50)
[2017-07-14] MEDS: ASCORBIC ACID 500 MG TABLET (FP) PO SCH (10:50)
[2017-07-14] MEDS: amLODIPine BESYLATE 5 MG TABLET (FP) PO SCH (10:50)
[2017-07-14] MEDS: AMINO ACIDS/PROTEIN HYDROLYS 30 ML LIQUID.PKT PO SCH ×2 (10:51→17:13)
--- NOTE | 2017-07-14 10:53 | PN ---
Progress Note, Physician History of Present Illness: patient seen and examined at bedside Labs pending patient states he vomited yellow one time today patient states he got into an argument with the nurse last night and he ended up refusing his IV fluids around midnight - Current Medication List Current Medications: Active Medications Amino Acids (Prosource No Carb Liquid Pkt) 30 ml PO BID@0800,1730 [facility] Last Admin: 07/13/17 17:47 Dose: Not Given Amlodipine Besylate (Norvasc -) 5 mg PO DAILY [facility] Last Admin: 07/13/17 09:24 Dose: 5 mg Ascorbic Acid (Vitamin C -) 500 mg PO DAILY [facility] Last Admin: 07/13/17 09:25 Dose: 500 mg Aspirin (Ecotrin -) 81 mg PO DAILY [facility] Last Admin: 07/13/17 09:24 Dose: 81 mg Collagenase (Santyl -) 1 applic TP DAILY [facility] Last Admin: 07/13/17 14:47 Dose: 1 applic Heparin Sodium (Porcine) (Heparin -) 5,000 unit SQ BID [facility] Last Admin: 07/13/17 21:39 Dose: 5,000 unit Sodium Chloride (Normal Saline -) 1,000 mls @ 150 mls/hr IV ASDIR [facility] Last Admin: 07/13/17 14:48 Dose: 150 mls/hr Insulin Aspart (Novolog Vial Sliding Scale -) 1 vial SQ ACHS [facility] PRN Reason: Protocol Last Admin: 07/14/17 06:13 Dose: Not Given Insulin Detemir (Levemir Vial) 45 units SQ HS [facility] Last Admin: 07/13/17 21:40 Dose: 45 unit Insulin Detemir (Levemir Vial) 15 units SQ AM [facility] Last Admin: 07/14/17 06:50 Dose: Not Given Metoprolol Succinate (Toprol Xl -) 25 mg PO DAILY [facility] Last Admin: 07/13/17 09:24 Dose: 25 mg Multivitamins/Minerals/Vitamin C (Tab-A-Vit -) 1 tab PO DAILY [facility] Last Admin: 07/13/17 09:24 Dose: 1 tab Tamsulosin HCl (Flomax -) 0.4 mg PO DAILY@0830 [facility] Last Admin: 07/13/17 09:24 Dose: 0.4 mg Tramadol HCl (Ultram -) 50 mg PO BID PRN PRN Reason: PAIN LEVEL 6-10 Last Admin: 07/12/17 17:43 Dose: 50 mg - Objective Vital Signs: Vital Signs Temperature 97.7 F 07/14/17 06:15 Pulse Rate 81 07/14/17 06:15 Respiratory Rate 20 07/14/17 06:15 Blood Pressure 145/76 07/14/17 06:15 O2 Sat by Pulse Oximetry (%) 98 07/13/17 21:00 Constitutional: Yes: No Distress Eyes: Yes: Conjunctiva Clear HENT: Yes: Atraumatic Neck: Yes: Supple Cardiovascular: Yes: Regular Rate and Rhythm Respiratory: Yes: CTA Bilaterally Gastrointestinal: Yes: Soft, Other (no CVA tenderness) Edema: No Labs: CBC, BMP 07/14/17 06:00 07/14/17 06:00 INR, PTT INR 0.98 (0.82-1.09) 07/14/17 06:00 Assessment/Plan 57M with multiple medical problems presents to the hospital with fever and vomiting found to be in acute renal failure. Acute renal failure likely secondary to a combination of dehydration and and rhabdomyolysis rhabdomyolysis dehydration/volume depletion vomiting HTN HLD IDDM UTI Transaminitis peripheral eosinophilia continue normal saline at 150ml/hr FeNa 8.1% Trend Creatinine Improving today Cr 4.8 down from 5.5 Urine eosinophils pending avoid nephrotoxic drugs renally dose all medications HIV negative complement levels pending DS DNA pending ANCA pending Hepatitis panel reviewed LFTs essentially unchanged Continue strict I/Os CPK improving outpatient autoimmune hepatic work-up Case discussed and patient seen with Dr. Walter
[2017-07-14] MEDS: HEPARIN NA (PORCINE) 5,000 UNITS/ML 1ML VIAL SQ SCH ×2 (11:03→21:46)
[2017-07-14 15:13] LABS: BILIRUBIN,DIRECT < 0.2 mg/dL (0.0-0.2)
--- NOTE | 2017-07-14 15:19 | PN ---
Teaching Attending Note Name of Resident: Ubaldo Huber (Nephrology) ATTENDING PHYSICIAN STATEMENT I saw and evaluated the patient. I reviewed the resident's note and discussed the case with the resident. I agree with the resident's findings and plan as documented. Renal Follow Up Pt seen and examined at bedside. He is awake and alert. He denies shortness of breath. Current Medications Generic Name Dose Route Start Last Admin Trade Name Rob PRN Reason Stop Dose Admin Amino Acids 30 ml 07/12/17 08:00 07/14/17 10:51 Prosource No Carb Liquid Pkt PO Not Given BID@0800,1730 [facility] Amlodipine Besylate 5 mg 07/09/17 10:00 07/14/17 10:50 Norvasc - PO 5 mg DAILY [facility] Administration Ascorbic Acid 500 mg 07/12/17 10:00 07/14/17 10:50 Vitamin C - PO 500 mg DAILY [facility] Administration Aspirin 81 mg 07/09/17 10:00 07/14/17 10:50 Ecotrin - PO 81 mg DAILY [facility] Administration Collagenase 1 applic 07/11/17 16:45 07/13/17 14:47 Santyl - TP 1 applic DAILY [facility] Administration Heparin Sodium (Porcine) 5,000 unit 07/08/17 22:00 07/14/17 11:03 Heparin - SQ 5,000 unit BID [facility] Administration Sodium Chloride 1,000 mls @ 150 mls/hr 07/12/17 14:00 07/13/17 14:48 Normal Saline - IV 150 mls/hr ASDIR [facility] Administration Insulin Aspart 1 vial 07/10/17 21:54 07/14/17 13:35 Novolog Vial Sliding Scale - SQ 6 units ACHS [facility] Administration Protocol Insulin Detemir 45 units 07/08/17 22:00 07/13/17 21:40 Levemir Vial SQ 45 unit HS [facility] Administration Insulin Detemir 15 units 07/12/17 07:00 07/14/17 06:50 Levemir Vial SQ Not Given AM [facility] Metoprolol Succinate 25 mg 07/09/17 10:00 07/14/17 10:50 Toprol Xl - PO 25 mg DAILY [facility] Administration Multivitamins/Minerals/Vitamin C 1 tab 07/12/17 10:00 07/14/17 10:50 Tab-A-Vit - PO 1 tab DAILY [facility] Administration Tamsulosin HCl 0.4 mg 07/09/17 08:30 07/14/17 10:50 Flomax - PO 0.4 mg DAILY@0830 [facility] Administration Tramadol HCl 50 mg 07/12/17 12:03 07/12/17 17:43 Ultram - PO 50 mg BID PRN Administration PAIN LEVEL 6-10 Laboratory Tests 07/09/17 07/10/17 07/12/17 14:30 05:05 14:30 BUN Creatinine c-ANCA Pending Proteinase 3 (PR3) Pending p-ANCA Pending Atypical p-ANCA Pending Myeloperoxidase Ab Pending Double Strand DNA Ab <1 Glomerular Base Memb Ab Hep Bs Antigen Negative Hep B Core Total Ab Negative Hep B Core IgM Ab Negative Hepatitis C Antibody <0.1 HIV 1&2 Antibody Screen HIV P24 Antigen 07/12/17 07/13/17 07/14/17 14:30 07:12 06:00 BUN 66 H Creatinine 4.8 H c-ANCA Proteinase 3 (PR3) p-ANCA Atypical p-ANCA Myeloperoxidase Ab Double Strand DNA Ab Glomerular Base Memb Ab Pending Hep Bs Antigen Hep B Core Total Ab Hep B Core IgM Ab Hepatitis C Antibody HIV 1&2 Antibody Screen Negative HIV P24 Antigen Negative general pt appears comfortable GI soft bs positive cardio s1s2 reg pulm cleat ext neg edema neuro awake psych calm skin neg rash circ pos pulses Impression 1. CKD 2. ARA 3. HTN 4. DM 5. proteinuria 6. hyperlipidemia 7. sepsis 8. rhabdo 9. peripheral eosinophilia Plan - renal function improving - repeat cpk in am - cont with fluids - likely etiology of ara is severe pre-renal disease, atn and rhabdo - renal workup is in progress - rhabdo is improving - repeat labs in am - discussed with resident
--- NOTE | 2017-07-14 15:46 | PN ---
Progress Note, Physician History of Present Illness: No events. Comfortable. Offers no GI-related complains. Liver chemistry slightly down. - Current Medication List Current Medications: Active Medications Amino Acids (Prosource No Carb Liquid Pkt) 30 ml PO BID@0800,1730 [facility] Last Admin: 07/14/17 10:51 Dose: Not Given Amlodipine Besylate (Norvasc -) 5 mg PO DAILY [facility] Last Admin: 07/14/17 10:50 Dose: 5 mg Ascorbic Acid (Vitamin C -) 500 mg PO DAILY [facility] Last Admin: 07/14/17 10:50 Dose: 500 mg Aspirin (Ecotrin -) 81 mg PO DAILY [facility] Last Admin: 07/14/17 10:50 Dose: 81 mg Collagenase (Santyl -) 1 applic TP DAILY [facility] Last Admin: 07/13/17 14:47 Dose: 1 applic Heparin Sodium (Porcine) (Heparin -) 5,000 unit SQ BID [facility] Last Admin: 07/14/17 11:03 Dose: 5,000 unit Sodium Chloride (Normal Saline -) 1,000 mls @ 150 mls/hr IV ASDIR [facility] Last Admin: 07/13/17 14:48 Dose: 150 mls/hr Insulin Aspart (Novolog Vial Sliding Scale -) 1 vial SQ ACHS [facility] PRN Reason: Protocol Last Admin: 07/14/17 13:35 Dose: 6 units Insulin Detemir (Levemir Vial) 45 units SQ HS [facility] Last Admin: 07/13/17 21:40 Dose: 45 unit Insulin Detemir (Levemir Vial) 15 units SQ AM [facility] Last Admin: 07/14/17 06:50 Dose: Not Given Metoprolol Succinate (Toprol Xl -) 25 mg PO DAILY [facility] Last Admin: 07/14/17 10:50 Dose: 25 mg Multivitamins/Minerals/Vitamin C (Tab-A-Vit -) 1 tab PO DAILY [facility] Last Admin: 07/14/17 10:50 Dose: 1 tab Tamsulosin HCl (Flomax -) 0.4 mg PO DAILY@0830 [facility] Last Admin: 07/14/17 10:50 Dose: 0.4 mg Tramadol HCl (Ultram -) 50 mg PO BID PRN PRN Reason: PAIN LEVEL 6-10 Last Admin: 07/12/17 17:43 Dose: 50 mg - Objective Vital Signs: Vital Signs Temperature 97.7 F 07/14/17 06:15 Pulse Rate 80 07/14/17 11:16 Respiratory Rate 18 07/14/17 11:16 Blood Pressure 152/85 07/14/17 11:16 O2 Sat by Pulse Oximetry (%) 98 07/13/17 21:00 Constitutional: Yes: Well Nourished, No Distress, Calm Eyes: Yes: Conjunctiva Clear HENT: Yes: Atraumatic Neck: Yes: Supple Cardiovascular: Yes: Regular Rate and Rhythm Respiratory: Yes: Regular Gastrointestinal: Yes: Normal Bowel Sounds, Soft Neurological: Yes: Alert, Oriented Labs: CBC, BMP 07/14/17 06:00 07/14/17 06:00 INR, PTT INR 0.98 (0.82-1.09) 07/14/17 06:00 CBCD WBC 7.9 K/mm3 (4.0-10.0) 07/14/17 06:00 RBC 3.97 M/mm3 (4.00-5.60) L 07/14/17 06:00 Hgb 10.5 GM/dL (11.7-16.9) L 07/14/17 06:00 Hct 31.4 % (35.4-49) L 07/14/17 06:00 MCV 79.0 fl (80-96) L 07/14/17 06:00 MCHC 33.4 g/dl (32.0-35.9) 07/14/17 06:00 RDW 15.3 % (11.9-15.9) 07/14/17 06:00 Plt Count 183 K/MM3 (134-434) 07/14/17 06:00 MPV 8.3 fl (7.5-11.1) 07/14/17 06:00 CMP Sodium 144 mmol/L (136-145) 07/14/17 06:00 Potassium 4.1 mmol/L (3.5-5.1) 07/14/17 06:00 Chloride 110 mmol/L (98-107) H 07/14/17 06:00 Carbon Dioxide 22 mmol/L (21-32) 07/14/17 06:00 Anion Gap 12 (8-16) 07/14/17 06:00 BUN 66 mg/dL (7-18) H 07/14/17 06:00 Creatinine 4.8 mg/dL (0.7-1.3) H 07/14/17 06:00 Creat Clearance w eGFR 12.51 (>60) 07/14/17 06:00 Calcium 8.3 mg/dL (8.5-10.1) L 07/14/17 06:00 Total Bilirubin 0.4 mg/dL (0.2-1.0) D 07/14/17 06:00 AST 193 U/L (15-37) H 07/14/17 06:00 ALT 206 U/L (12-78) H 07/14/17 06:00 Alkaline Phosphatase 120 U/L (45-117) H 07/14/17 06:00 Total Protein 6.6 g/dl (6.4-8.2) 07/14/17 06:00 Albumin 3.0 g/dl (3.4-5.0) L 07/14/17 06:00 Problem List - Problems (1) Drug-induced hepatic toxicity Code(s): K71.6 - TOXIC LIVER DISEASE WITH HEPATITIS, NOT ELSEWHERE CLASSIFIED; T50.905A - ADVERSE EFFECT OF UNSP DRUG/MEDS/BIOL SUBST, INIT (2) Drug-induced hepatitis Code(s): K71.6 - TOXIC LIVER DISEASE WITH HEPATITIS, NOT ELSEWHERE CLASSIFIED; T50.905A - ADVERSE EFFECT OF UNSP DRUG/MEDS/BIOL SUBST, INIT (3) Abnormal liver enzymes Code(s): R74.8 - ABNORMAL LEVELS OF OTHER SERUM ENZYMES Assessment/Plan Will continue to monitor Daily liver chemistry including bili and ALP, PT, INR Stop all hepatotoxic medications It will take few weeks for the liver chem to normalize after an offending agent has been removed. Follow up as OP for autoimune liver work up
[2017-07-14] MEDS: COLLAGENASE CLOSTRIDIUM HIST. 30 GRAMS TUBE TP SCH (16:17)
[2017-07-14] MEDS: SODIUM CHLORIDE 1,000 ML IV SCH ×2 (16:17→22:52)
[2017-07-15] MEDS: INSULIN SLIDING SCALE (NOVOLOG) 1 VIAL SQ SCH ×4 (06:33→22:58)
[2017-07-15] MEDS: SODIUM CHLORIDE 1,000 ML IV SCH ×3 (06:34→21:08)
[2017-07-15] MEDS: INSULIN DETEMIR 100 UNITS/ML MDV SQ SCH ×3 (06:35→22:58)
[2017-07-15] MEDS ORDERED: INSULIN DETEMIR 100 UNITS/ML MDV SQ ONE (06:52)
[2017-07-15] MEDS ORDERED: INSULIN (NOVOLOG) ASPART 100 UNITS/ML 10ML VIAL ONE ×2 (06:52→11:12)
[2017-07-15 08:15] LABS: BASO % 0.6 % (0-2.0); EOS % 5.1 % (0-4.5); HEMATOCRIT 33.2 % (35.4-49); HEMOGLOBIN 11.1 GM/dL (11.7-16.9); MCH 26.2 pg (25.7-33.7); MCHC 33.6 g/dl (32.0-35.9); MEAN CELL VOLUME 78.1 fl (80-96); MEAN PLT VOLUME 8.5 fl (7.5-11.1); MONO % 6.6 % (3.8-10.2); NEUT % 72.7 % (42.8-82.8); PLATELET COUNT 223 K/MM3 (134-434); RBC 4.25 M/mm3 (4.00-5.60); RDW 15.3 % (11.9-15.9); WHITE BLOOD COUNT 7.7 K/mm3 (4.0-10.0)
[2017-07-15 08:17] LABS: CHLORIDE 111 mmol/L (98-107); POTASSIUM 4.2 mmol/L (3.5-5.1); SODIUM 143 mmol/L (136-145)
[2017-07-15 08:28] LABS: ALBUMIN 3.2 g/dl (3.4-5.0); ALK PHOS 130 U/L (45-117); ANION GAP 11 (8-16); BILIRUBIN,TOTAL 0.4 mg/dL (0.2-1.0); BLOOD UREA NITROGEN 63 mg/dL (7-18); CALCIUM 8.7 mg/dL (8.5-10.1); CO2 21 mmol/L (21-32); CREATININE 4.2 mg/dL (0.7-1.3); GLUCOSE,RANDOM 131 mg/dL (74-106); SGOT/AST 135 U/L (15-37); SGPT/ALT 200 U/L (12-78); TOT PROT 6.9 g/dl (6.4-8.2)
[2017-07-15] MEDS: HEPARIN NA (PORCINE) 5,000 UNITS/ML 1ML VIAL SQ SCH ×2 (10:48→22:55)
[2017-07-15] MEDS: AMINO ACIDS/PROTEIN HYDROLYS 30 ML LIQUID.PKT PO SCH ×2 (10:51→18:16)
[2017-07-15] MEDS: TAMSULOSIN HCL 0.4 MG CAP.ER.24H (FP) PO SCH (10:51)
[2017-07-15] MEDS: METOPROLOL SUCCINATE 25 MG TAB.SR.24H (FP) PO SCH (10:52)
[2017-07-15] MEDS: MULTIVITAMINS (DAILY MVI) TABLET (FP) PO SCH (10:52)
[2017-07-15] MEDS: ASCORBIC ACID 500 MG TABLET (FP) PO SCH (10:52)
[2017-07-15] MEDS: ASPIRIN COATED 81 MG TABLET.EC PO SCH (10:52)
[2017-07-15] MEDS: amLODIPine BESYLATE 5 MG TABLET (FP) PO SCH (10:52)
[2017-07-15] MEDS: COLLAGENASE CLOSTRIDIUM HIST. 30 GRAMS TUBE TP SCH (10:53)
--- NOTE | 2017-07-15 12:44 | PN ---
Progress Note, Physician Chief Complaint: patient in bed feels tired on ivf - Current Medication List Current Medications: Active Medications Amino Acids (Prosource No Carb Liquid Pkt) 30 ml PO BID@0800,1730 [facility] Last Admin: 07/15/17 10:51 Dose: Not Given Amlodipine Besylate (Norvasc -) 5 mg PO DAILY [facility] Last Admin: 07/15/17 10:52 Dose: 5 mg Ascorbic Acid (Vitamin C -) 500 mg PO DAILY [facility] Last Admin: 07/15/17 10:52 Dose: 500 mg Aspirin (Ecotrin -) 81 mg PO DAILY [facility] Last Admin: 07/15/17 10:52 Dose: 81 mg Collagenase (Santyl -) 1 applic TP DAILY [facility] Last Admin: 07/15/17 10:53 Dose: 1 applic Heparin Sodium (Porcine) (Heparin -) 5,000 unit SQ BID [facility] Last Admin: 07/15/17 10:48 Dose: 5,000 unit Sodium Chloride (Normal Saline -) 1,000 mls @ 150 mls/hr IV ASDIR [facility] Last Admin: 07/15/17 06:34 Dose: 150 mls/hr Insulin Aspart (Novolog Vial Sliding Scale -) 1 vial SQ ACHS [facility] PRN Reason: Protocol Last Admin: 07/15/17 10:48 Dose: 6 units Insulin Detemir (Levemir Vial) 45 units SQ HS [facility] Last Admin: 07/14/17 21:46 Dose: 45 unit Insulin Detemir (Levemir Vial) 15 units SQ AM [facility] Last Admin: 07/15/17 10:48 Dose: 15 units Metoprolol Succinate (Toprol Xl -) 25 mg PO DAILY [facility] Last Admin: 07/15/17 10:52 Dose: 25 mg Multivitamins/Minerals/Vitamin C (Tab-A-Vit -) 1 tab PO DAILY [facility] Last Admin: 07/15/17 10:52 Dose: 1 tab Tamsulosin HCl (Flomax -) 0.4 mg PO DAILY@0830 [facility] Last Admin: 07/15/17 10:51 Dose: 0.4 mg Tramadol HCl (Ultram -) 50 mg PO BID PRN PRN Reason: PAIN LEVEL 6-10 Last Admin: 07/12/17 17:43 Dose: 50 mg - Objective Vital Signs: Vital Signs Temperature 81 F L 07/14/17 22:40 Pulse Rate 81 07/14/17 22:40 Respiratory Rate 20 07/14/17 22:40 Blood Pressure 154/84 07/14/17 22:40 O2 Sat by Pulse Oximetry (%) 98 07/15/17 09:00 Constitutional: Yes: Calm Neck: Yes: Trachea Midline Cardiovascular: Yes: Regular Rate and Rhythm, S1, S2 Respiratory: Yes: CTA Bilaterally Gastrointestinal: Yes: Normal Bowel Sounds, Soft Neurological: Yes: Alert Labs: CBC, BMP 07/15/17 06:30 07/15/17 06:30 INR, PTT INR 0.98 (0.82-1.09) 07/14/17 06:00 Problem List - Problems (1) Abnormal liver enzymes Assessment/Plan: LFT trending down avoid all hepatotoxic drugs Code(s): R74.8 - ABNORMAL LEVELS OF OTHER SERUM ENZYMES (2) Rhabdomyolysis Assessment/Plan: CKMB trending down ivf Code(s): M62.82 - RHABDOMYOLYSIS (3) Acute kidney injury Assessment/Plan: on IVF BUN/Cr improving Code(s): N17.9 - ACUTE KIDNEY FAILURE, UNSPECIFIED (4) Type 2 diabetes mellitus with other diabetic kidney complication Assessment/Plan: on insulin bgm noted Code(s): E11.29 - TYPE 2 DIABETES MELLITUS W OTH DIABETIC KIDNEY COMPLICATION
--- NOTE | 2017-07-15 15:16 | PN ---
Progress Note, Physician History of Present Illness: Pt seen and examined at bedside. He is awake and alert. He denies shortness of breath. - Current Medication List Current Medications: Active Medications Amino Acids (Prosource No Carb Liquid Pkt) 30 ml PO BID@0800,1730 [facility] Last Admin: 07/15/17 10:51 Dose: Not Given Amlodipine Besylate (Norvasc -) 5 mg PO DAILY [facility] Last Admin: 07/15/17 10:52 Dose: 5 mg Ascorbic Acid (Vitamin C -) 500 mg PO DAILY [facility] Last Admin: 07/15/17 10:52 Dose: 500 mg Aspirin (Ecotrin -) 81 mg PO DAILY [facility] Last Admin: 07/15/17 10:52 Dose: 81 mg Collagenase (Santyl -) 1 applic TP DAILY [facility] Last Admin: 07/15/17 10:53 Dose: 1 applic Heparin Sodium (Porcine) (Heparin -) 5,000 unit SQ BID [facility] Last Admin: 07/15/17 10:48 Dose: 5,000 unit Sodium Chloride (Normal Saline -) 1,000 mls @ 150 mls/hr IV ASDIR [facility] Last Admin: 07/15/17 06:34 Dose: 150 mls/hr Insulin Aspart (Novolog Vial Sliding Scale -) 1 vial SQ ACHS [facility] PRN Reason: Protocol Last Admin: 07/15/17 10:48 Dose: 6 units Insulin Detemir (Levemir Vial) 45 units SQ HS [facility] Last Admin: 07/14/17 21:46 Dose: 45 unit Insulin Detemir (Levemir Vial) 15 units SQ AM [facility] Last Admin: 07/15/17 10:48 Dose: 15 units Metoprolol Succinate (Toprol Xl -) 25 mg PO DAILY [facility] Last Admin: 07/15/17 10:52 Dose: 25 mg Multivitamins/Minerals/Vitamin C (Tab-A-Vit -) 1 tab PO DAILY [facility] Last Admin: 07/15/17 10:52 Dose: 1 tab Tamsulosin HCl (Flomax -) 0.4 mg PO DAILY@0830 [facility] Last Admin: 07/15/17 10:51 Dose: 0.4 mg Tramadol HCl (Ultram -) 50 mg PO BID PRN PRN Reason: PAIN LEVEL 6-10 Last Admin: 07/12/17 17:43 Dose: 50 mg - Objective Vital Signs: Vital Signs Temperature 81 F L 07/14/17 22:40 Pulse Rate 81 07/14/17 22:40 Respiratory Rate 20 07/14/17 22:40 Blood Pressure 154/84 07/14/17 22:40 O2 Sat by Pulse Oximetry (%) 98 07/15/17 09:00 Constitutional: Yes: Calm Eyes: Yes: Conjunctiva Clear HENT: Yes: Atraumatic Neck: Yes: Supple Cardiovascular: Yes: S1, S2 Respiratory: Yes: CTA Bilaterally Gastrointestinal: Yes: Normal Bowel Sounds, Soft Genitourinary: Yes: WNL Musculoskeletal: Yes: WNL Edema: No Neurological: Yes: Oriented Psychiatric: Yes: Oriented Labs: CBC, BMP 07/15/17 06:30 07/15/17 06:30 INR, PTT INR 0.98 (0.82-1.09) 07/14/17 06:00 Problem List - Problems (1) Abnormal liver enzymes Code(s): R74.8 - ABNORMAL LEVELS OF OTHER SERUM ENZYMES (2) Acute kidney injury Code(s): N17.9 - ACUTE KIDNEY FAILURE, UNSPECIFIED (3) Acute on chronic renal failure Code(s): N17.9 - ACUTE KIDNEY FAILURE, UNSPECIFIED; N18.9 - CHRONIC KIDNEY DISEASE, UNSPECIFIED Qualifiers: Acute renal failure type: unspecified Chronic kidney disease stage: unspecified stage Qualified Code(s): N17.9 - Acute kidney failure, unspecified ; N18.9 - Chronic kidney disease, unspecified; N18.9 - Chronic kidney disease, unspecified (4) Anemia Code(s): D64.9 - ANEMIA, UNSPECIFIED (5) Elevated creatine kinase level Code(s): R74.8 - ABNORMAL LEVELS OF OTHER SERUM ENZYMES (6) Rhabdomyolysis Code(s): M62.82 - RHABDOMYOLYSIS Assessment/Plan Current Medications Generic Name Dose Route Start Last Admin Trade Name Freq PRN Reason Stop Dose Admin Amino Acids 30 ml 07/12/17 08:00 07/15/17 10:51 Prosource No Carb Liquid Pkt PO Not Given BID@0800,1730 [facility] Amlodipine Besylate 5 mg 07/09/17 10:00 07/15/17 10:52 Norvasc - PO 5 mg DAILY [facility] Administration Ascorbic Acid 500 mg 07/12/17 10:00 07/15/17 10:52 Vitamin C - PO 500 mg DAILY [facility] Administration Aspirin 81 mg 07/09/17 10:00 07/15/17 10:52 Ecotrin - PO 81 mg DAILY [facility] Administration Collagenase 1 applic 07/11/17 16:45 07/15/17 10:53 Santyl - TP 1 applic DAILY [facility] Administration Heparin Sodium (Porcine) 5,000 unit 07/08/17 22:00 07/15/17 10:48 Heparin - SQ 5,000 unit BID [facility] Administration Sodium Chloride 1,000 mls @ 150 mls/hr 07/12/17 14:00 07/15/17 06:34 Normal Saline - IV 150 mls/hr ASDIR [facility] Administration Insulin Aspart 1 vial 07/10/17 21:54 07/15/17 10:48 Novolog Vial Sliding Scale - SQ 6 units ACHS [facility] Administration Protocol Insulin Detemir 45 units 07/08/17 22:00 07/14/17 21:46 Levemir Vial SQ 45 unit HS [facility] Administration Insulin Detemir 15 units 07/12/17 07:00 07/15/17 10:48 Levemir Vial SQ 15 units AM [facility] Administration Metoprolol Succinate 25 mg 07/09/17 10:00 07/15/17 10:52 Toprol Xl - PO 25 mg DAILY [facility] Administration Multivitamins/Minerals/Vitamin C 1 tab 07/12/17 10:00 07/15/17 10:52 Tab-A-Vit - PO 1 tab DAILY [facility] Administration Tamsulosin HCl 0.4 mg 07/09/17 08:30 07/15/17 10:51 Flomax - PO 0.4 mg DAILY@0830 [facility] Administration Tramadol HCl 50 mg 07/12/17 12:03 07/12/17 17:43 Ultram - PO 50 mg BID PRN Administration PAIN LEVEL 6-10 Laboratory Tests 07/09/17 07/10/17 07/12/17 14:30 05:05 14:30 Creatine Kinase c-ANCA Pending Proteinase 3 (PR3) Pending p-ANCA Pending Atypical p-ANCA Pending Myeloperoxidase Ab Pending Double Strand DNA Ab <1 Glomerular Base Memb Ab Hep Bs Antigen Negative Negative Hep B Core Total Ab Negative Hepatitis C Antibody <0.1 07/13/17 07/15/17 07:12 06:30 Creatine Kinase 695 H c-ANCA Proteinase 3 (PR3) p-ANCA Atypical p-ANCA Myeloperoxidase Ab Double Strand DNA Ab Glomerular Base Memb Ab 4 Hep Bs Antigen Hep B Core Total Ab Hepatitis C Antibody Impression 1. CKD 2. ARA 3. HTN 4. DM 5. proteinuria 6. hyperlipidemia 7. sepsis 8. rhabdo 9. peripheral eosinophilia Plan - renal function continues to improve - repeat labs in am - can decrease rate of fluids to 100 - renal workup is in progress - repeat cpk in am - likely etiology of ara is severe pre-renal disease, atn and rhabdo - rhabdo is improving
--- NOTE | 2017-07-15 21:38 | CONSULT ---
Consult - text type - Consultation Consultation Note: The patient is a 56-year-old obese man, with a history of diabetes, hypertension , hyperlipidemia, prostate cancer, status post seeding, peripheral vascular disease, bilateral toe amputations, admitted with nausea and vomiting and an infected right lower extremity ulcer. Also with ARA/rhabdo/abnormal LFTs clinically improving. 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: Peripheral Neuropathy, Other (IDDM) Cardio/Vascular: Yes: HTN, Hyperlipdemia, Other (peripheral vascular disease) Renal/: Yes: Renal Inusuff Musculoskeletal: Yes: Osteoarthritis Endocrine: Yes: Diabetes Mellitus (Insulin dependent) - Past Surgical History Past Surgical History: Yes: Amputation (lt tma, rt toes, prostate seed implant.) - Social History exsmoker Home Medications - Allergies Allergies/Adverse Reactions: Allergies Allergy/AdvReac Type Severity Reaction Status Date / Time No Known Drug Allergies Allergy Verified 07/08/17 11:18 - Home Medications Home Medications: Ambulatory Orders Atorvastatin Calcium 40 mg PO HS 08/10/16 Amlodipine Besylate 5 mg PO DAILY 01/01/17 Aspirin [ASA -] 81 mg PO DAILY 01/01/17 Bicalutamide 50 mg PO DAILY 01/01/17 Insulin Aspart [Novolog Flexpen] 12 units SQ TID 01/01/17 Insulin Degludec [Tresiba Flextouch U-100] 45 units SQ HS 01/01/17 Metoprolol Succinate [Toprol XL -] 25 mg PO DAILY 01/01/17 Tamsulosin HCl [Flomax -] 0.4 mg PO DAILY 01/01/17 Active Medications Generic Name Dose Route Start Last Admin Trade Name Rob PRN Reason Stop Dose Admin Amino Acids 30 ml 07/12/17 08:00 07/15/17 18:16 Prosource No Carb Liquid Pkt PO Not Given BID@0800,1730 [facility] Amlodipine Besylate 5 mg 07/09/17 10:00 07/15/17 10:52 Norvasc - PO 5 mg DAILY [facility] Administration Ascorbic Acid 500 mg 07/12/17 10:00 07/15/17 10:52 Vitamin C - PO 500 mg DAILY [facility] Administration Aspirin 81 mg 07/09/17 10:00 07/15/17 10:52 Ecotrin - PO 81 mg DAILY [facility] Administration Collagenase 1 applic 07/11/17 16:45 07/15/17 10:53 Santyl - TP 1 applic DAILY [facility] Administration Heparin Sodium (Porcine) 5,000 unit 07/08/17 22:00 07/15/17 22:55 Heparin - SQ 5,000 unit BID [facility] Administration Sodium Chloride 1,000 mls @ 100 mls/hr 07/15/17 20:00 07/16/17 02:00 Normal Saline - IV 100 mls/hr ASDIR [facility] Administration Insulin Aspart 1 vial 07/10/17 21:54 07/16/17 06:27 Novolog Vial Sliding Scale - SQ Not Given ACHS [facility] Protocol Insulin Detemir 45 units 07/08/17 22:00 07/15/17 22:58 Levemir Vial SQ 45 unit HS [facility] Administration Insulin Detemir 15 units 07/12/17 07:00 07/16/17 06:27 Levemir Vial SQ Not Given AM [facility] Metoprolol Succinate 25 mg 07/09/17 10:00 07/15/17 10:52 Toprol Xl - PO 25 mg DAILY [facility] Administration Multivitamins/Minerals/Vitamin C 1 tab 07/12/17 10:00 07/15/17 10:52 Tab-A-Vit - PO 1 tab DAILY [facility] Administration Tamsulosin HCl 0.4 mg 07/09/17 08:30 07/15/17 10:51 Flomax - PO 0.4 mg DAILY@0830 [facility] Administration Tramadol HCl 50 mg 07/12/17 12:03 07/12/17 17:43 Ultram - PO 50 mg BID PRN Administration PAIN LEVEL 6-10 Family Disease History - Family Disease History Family Disease History: Diabetes: Father Vital Signs: Last Vital Signs Temp Pulse Resp BP Pulse Ox 97.9 F 77 18 137/70 98 07/16/17 05:38 07/16/17 05:38 07/16/17 05:38 07/16/17 05:38 07/15/17 21:00 Cor: RSR, No murmurs, No gallops Lungs: Clear to P&A Abd: Soft, Normal bowel sounds, No organomegaly Ext:No significant edema Skin: No rashes, Integument intact Abnormal Lab Results 07/15/17 07/15/17 06:30 06:30 Hgb 11.1 L Hct 33.2 L MCV 78.1 L Eosinophils % 5.1 H Chloride 111 H BUN 63 H Creatinine 4.2 H Random Glucose 131 H D AST 135 H D ALT 200 H Alkaline Phosphatase 130 H Creatine Kinase 695 H Albumin 3.2 L Assessment/Plan 56-year-old man, with a history of diabetes, hypertension, hyperlipidemia, prostate cancer, status post seeding, peripheral vascular disease, status post bilateral toe amputations and chronic ulcers, admitted 07/08/17 with nausea vomiting and infected lower extremity ulcer. Also with rhabdomylolysis/ARA/abnormal LFTs Was on statin at home clinically improving. Renal fucnction improving, LFTS stable anemia of chronic disease --given renal failure, rhabdo, chronic lower extremity ulcer will check screening tests
[2017-07-16 00:11] LABS: ATYPICAL pANCA <1:20 titer (Neg:<1:20); C-ANCA <1:20 titer (Neg:<1:20); P-ANCA <1:20 titer (Neg:<1:20); PROTEINASE-3 ANTIBODY <3.5 U/mL (0.0-3.5)
[2017-07-16] MEDS: SODIUM CHLORIDE 1,000 ML IV SCH ×3 (02:00→22:24)
[2017-07-16] MEDS: INSULIN DETEMIR 100 UNITS/ML MDV SQ SCH ×2 (06:27→22:24)
[2017-07-16] MEDS: INSULIN SLIDING SCALE (NOVOLOG) 1 VIAL SQ SCH ×4 (06:27→22:25)
[2017-07-16 08:24] LABS: ALBUMIN 3.1 g/dl (3.4-5.0); ANION GAP 9 (8-16); BILIRUBIN,TOTAL 0.5 mg/dL (0.2-1.0); BLOOD UREA NITROGEN 51 mg/dL (7-18); CALCIUM 7.6 mg/dL (8.5-10.1); CHLORIDE 115 mmol/L (98-107); CO2 22 mmol/L (21-32); CREATININE 3.1 mg/dL (0.7-1.3); GLUCOSE,RANDOM 55 mg/dL (74-106); POTASSIUM 3.4 mmol/L (3.5-5.1); SGOT/AST 104 U/L (15-37); SGPT/ALT 188 U/L (12-78); SODIUM 146 mmol/L (136-145); TOT PROT 6.6 g/dl (6.4-8.2)
[2017-07-16 08:28] LABS: ALK PHOS 116 U/L (45-117)
[2017-07-16] MEDS: AMINO ACIDS/PROTEIN HYDROLYS 30 ML LIQUID.PKT PO SCH ×2 (08:52→17:54)
[2017-07-16] MEDS: MULTIVITAMINS (DAILY MVI) TABLET (FP) PO SCH (11:13)
[2017-07-16] MEDS: ASPIRIN COATED 81 MG TABLET.EC PO SCH (11:13)
[2017-07-16] MEDS: ASCORBIC ACID 500 MG TABLET (FP) PO SCH (11:13)
[2017-07-16] MEDS: amLODIPine BESYLATE 5 MG TABLET (FP) PO SCH (11:13)
[2017-07-16] MEDS: TAMSULOSIN HCL 0.4 MG CAP.ER.24H (FP) PO SCH (11:13)
[2017-07-16] MEDS: METOPROLOL SUCCINATE 25 MG TAB.SR.24H (FP) PO SCH (11:13)
[2017-07-16] MEDS: HEPARIN NA (PORCINE) 5,000 UNITS/ML 1ML VIAL SQ SCH ×2 (11:14→22:23)
[2017-07-16] MEDS ORDERED: POTASSIUM CHLORIDE TABS 20 MEQ TABLET.ER (FP) PO ONE (16:28)
--- NOTE | 2017-07-16 16:32 | PN ---
Progress Note, Physician Chief Complaint: Dehydration, Rhabdomylosis History of Present Illness: NAD, in bed labs reviewed liver enzymes and rhabdo improving BUN/Cr improving IVF seen by nephrology seen by GI for rising liver enzymes seen by ID for UTI- abx discontinued. Pt asymptomatic. UC contaminated, less than 100,000 growth daily CBC,CMP,PT,INR and bili CK-MB improving after hydration independent, self ambulatory - Current Medication List Current Medications: Active Medications Amino Acids (Prosource No Carb Liquid Pkt) 30 ml PO BID@0800,1730 [facility] Last Admin: 07/16/17 08:52 Dose: Not Given Amlodipine Besylate (Norvasc -) 5 mg PO DAILY [facility] Last Admin: 07/16/17 11:13 Dose: 5 mg Ascorbic Acid (Vitamin C -) 500 mg PO DAILY [facility] Last Admin: 07/16/17 11:13 Dose: 500 mg Aspirin (Ecotrin -) 81 mg PO DAILY [facility] Last Admin: 07/16/17 11:13 Dose: 81 mg Collagenase (Santyl -) 1 applic TP DAILY [facility] Last Admin: 07/15/17 10:53 Dose: 1 applic Heparin Sodium (Porcine) (Heparin -) 5,000 unit SQ BID [facility] Last Admin: 07/16/17 11:14 Dose: 5,000 unit Sodium Chloride (Normal Saline -) 1,000 mls @ 100 mls/hr IV ASDIR [facility] Last Admin: 07/16/17 12:35 Dose: 100 mls/hr Insulin Aspart (Novolog Vial Sliding Scale -) 1 vial SQ ACHS [facility] PRN Reason: Protocol Last Admin: 07/16/17 12:56 Dose: 8 units Insulin Detemir (Levemir Vial) 45 units SQ HS [facility] Last Admin: 07/15/17 22:58 Dose: 45 unit Insulin Detemir (Levemir Vial) 15 units SQ AM [facility] Last Admin: 07/16/17 06:27 Dose: Not Given Metoprolol Succinate (Toprol Xl -) 25 mg PO DAILY [facility] Last Admin: 07/16/17 11:13 Dose: 25 mg Multivitamins/Minerals/Vitamin C (Tab-A-Vit -) 1 tab PO DAILY [facility] Last Admin: 07/16/17 11:13 Dose: 1 tab Potassium Chloride (K-Dur -) 40 meq PO ONCE ONE Stop: 07/16/17 16:29 Tamsulosin HCl (Flomax -) 0.4 mg PO DAILY@0830 [facility] Last Admin: 07/16/17 11:13 Dose: 0.4 mg Tramadol HCl (Ultram -) 50 mg PO BID PRN PRN Reason: PAIN LEVEL 6-10 Last Admin: 07/12/17 17:43 Dose: 50 mg - Objective Vital Signs: Vital Signs Temperature 97.5 F L 07/16/17 14:50 Pulse Rate 82 07/16/17 14:50 Respiratory Rate 18 07/16/17 14:50 Blood Pressure 151/83 07/16/17 14:50 O2 Sat by Pulse Oximetry (%) 98 07/15/17 21:00 Constitutional: Yes: Well Nourished, No Distress, Calm Cardiovascular: Yes: Regular Rate and Rhythm Respiratory: Yes: Regular Gastrointestinal: Yes: Normal Bowel Sounds, Soft Musculoskeletal: Yes: WNL Edema: No Peripheral Pulses WNL: No Peripheral Pulses: Left Doralis Pedis: 1+, Right Dorsalis Pedis: 1+ Neurological: Yes: Alert, Oriented Psychiatric: Yes: Alert, Oriented Labs: CBC, BMP 07/15/17 06:30 07/16/17 06:10 INR, PTT INR 0.98 (0.82-1.09) 07/14/17 06:00 Problem List - Problems (1) Rhabdomyolysis Assessment/Plan: -improving, -CK-MB trending down -Nephrology consult -labs in AM Code(s): M62.82 - RHABDOMYOLYSIS (2) Abnormal liver enzymes Assessment/Plan: -GI consult appreciated -avoid hepatotoxic drugs -d/c tylenol, abx discontinued -ordered Tramadol 50 mg po BID PRN if any pain; max dosage 100 mg/day -abd u/s unremarkable -secondary to rhabdo? -follow trend, labs in AM Code(s): R74.8 - ABNORMAL LEVELS OF OTHER SERUM ENZYMES (3) Acute on chronic renal failure Assessment/Plan: -IVF -BUN/Cr improving -Nephrology consult -avoid nephrotoxic drugs -patient is urinating, no electrolyte imbalance, no dialysis indicated at this time. Code(s): N17.9 - ACUTE KIDNEY FAILURE, UNSPECIFIED; N18.9 - CHRONIC KIDNEY DISEASE, UNSPECIFIED Qualifiers: Acute renal failure type: unspecified Chronic kidney disease stage: unspecified stage Qualified Code(s): N17.9 - Acute kidney failure, unspecified ; N18.9 - Chronic kidney disease, unspecified; N18.9 - Chronic kidney disease, unspecified (4) Dehydration Assessment/Plan: -IVF -repeat labs in AM Code(s): E86.0 - DEHYDRATION (5) UTI (urinary tract infection) due to Enterococcus Assessment/Plan: -IV abx discontinued -UC contaminated -ID consult -afebrile Code(s): N39.0 - URINARY TRACT INFECTION, SITE NOT SPECIFIED; B95.2 - ENTEROCOCCUS THE CAUSE OF DISEASES CLASSIFIED ELSEWHERE (6) Diabetes mellitus Assessment/Plan: -seen by Endocrinology -Insulin short and long acting -improving trend -diabetic diet Code(s): E11.9 - TYPE 2 DIABETES MELLITUS WITHOUT COMPLICATIONS Qualifiers: Diabetes mellitus type: type 2 Diabetes mellitus complication status: with hyperglycemia Diabetes mellitus senior living insulin use: with terminal carman use Qualified Code(s): E11.65 - Type 2 diabetes mellitus with hyperglycemia (7) Anemia Assessment/Plan: -2/2 chronic disease -stool OB pending -Iron profile, B 12, TSH,FT4, Folate normal Code(s): D64.9 - ANEMIA, UNSPECIFIED Assessment/Plan see problem list
[2017-07-16] MEDS: COLLAGENASE CLOSTRIDIUM HIST. 30 GRAMS TUBE TP SCH (17:47)
--- NOTE | 2017-07-16 20:05 | PN ---
Progress Note (short form) - Note Progress Note: ckd kenji/rhabdo/ atn Current Medications Amino Acids (Prosource No Carb Liquid Pkt) 30 ml PO BID@0800,1730 [facility] Last Admin: 07/16/17 17:54 Dose: Not Given Amlodipine Besylate (Norvasc -) 5 mg PO DAILY [facility] Last Admin: 07/16/17 11:13 Dose: 5 mg Ascorbic Acid (Vitamin C -) 500 mg PO DAILY [facility] Last Admin: 07/16/17 11:13 Dose: 500 mg Aspirin (Ecotrin -) 81 mg PO DAILY [facility] Last Admin: 07/16/17 11:13 Dose: 81 mg Collagenase (Santyl -) 1 applic TP DAILY [facility] Last Admin: 07/16/17 17:47 Dose: Not Given Heparin Sodium (Porcine) (Heparin -) 5,000 unit SQ BID [facility] Last Admin: 07/16/17 11:14 Dose: 5,000 unit Sodium Chloride (Normal Saline -) 1,000 mls @ 100 mls/hr IV ASDIR [facility] Last Admin: 07/16/17 12:35 Dose: 100 mls/hr Insulin Aspart (Novolog Vial Sliding Scale -) 1 vial SQ ACHS [facility] PRN Reason: Protocol Last Admin: 07/16/17 18:05 Dose: 6 units Insulin Detemir (Levemir Vial) 45 units SQ HS [facility] Last Admin: 07/15/17 22:58 Dose: 45 unit Insulin Detemir (Levemir Vial) 15 units SQ AM [facility] Last Admin: 07/16/17 06:27 Dose: Not Given Metoprolol Succinate (Toprol Xl -) 25 mg PO DAILY [facility] Last Admin: 07/16/17 11:13 Dose: 25 mg Multivitamins/Minerals/Vitamin C (Tab-A-Vit -) 1 tab PO DAILY [facility] Last Admin: 07/16/17 11:13 Dose: 1 tab Tamsulosin HCl (Flomax -) 0.4 mg PO DAILY@0830 [facility] Last Admin: 07/16/17 11:13 Dose: 0.4 mg Tramadol HCl (Ultram -) 50 mg PO BID PRN PRN Reason: PAIN LEVEL 6-10 Last Admin: 07/12/17 17:43 Dose: 50 mg Last Vital Signs Temp Pulse Resp BP Pulse Ox 98.2 F 77 18 161/87 98 07/16/17 18:20 07/16/17 18:20 07/16/17 18:20 07/16/17 18:20 07/15/17 21:00 CBC, BMP 07/15/17 06:30 07/16/17 06:10 renal function improving continue IVF follow up labs in am
[2017-07-16] MEDS ORDERED: INSULIN (NOVOLOG) ASPART 100 UNITS/ML 10ML VIAL ONE (21:37)
[2017-07-17] MEDS: INSULIN SLIDING SCALE (NOVOLOG) 1 VIAL SQ SCH ×4 (06:24→21:45)
[2017-07-17] MEDS: INSULIN DETEMIR 100 UNITS/ML MDV SQ SCH ×2 (06:27→21:45)
[2017-07-17] MEDS ORDERED: INSULIN (NOVOLOG) ASPART 100 UNITS/ML 10ML VIAL ONE ×2 (07:05→21:33)
[2017-07-17] MEDS ORDERED: INSULIN DETEMIR 100 UNITS/ML MDV SQ ONE (07:05)
[2017-07-17 07:10] LABS: ALBUMIN 3.3 g/dl (3.4-5.0); ALK PHOS 122 U/L (45-117); ANION GAP 9 (8-16); BILIRUBIN,TOTAL 0.4 mg/dL (0.2-1.0); BLOOD UREA NITROGEN 52 mg/dL (7-18); CALCIUM 8.5 mg/dL (8.5-10.1); CHLORIDE 111 mmol/L (98-107); CO2 24 mmol/L (21-32); CREATININE 3.3 mg/dL (0.7-1.3); GLUCOSE,RANDOM 121 mg/dL (74-106); POTASSIUM 4.2 mmol/L (3.5-5.1); SGOT/AST 56 U/L (15-37); SGPT/ALT 154 U/L (12-78); SODIUM 144 mmol/L (136-145); TOT PROT 6.9 g/dl (6.4-8.2)
[2017-07-17 07:27] LABS: BASO % 0.7 % (0-2.0); EOS % 4.7 % (0-4.5); HEMATOCRIT 31.1 % (35.4-49); HEMOGLOBIN 10.3 GM/dL (11.7-16.9); LYMPH % 15.6 % (8-40); MCHC 33.1 g/dl (32.0-35.9); MEAN CELL VOLUME 78.3 fl (80-96); MONO % 8.1 % (3.8-10.2); NEUT % 70.9 % (42.8-82.8); PLATELET COUNT 278 K/MM3 (134-434); RBC 3.97 M/mm3 (4.00-5.60); RDW 15.4 % (11.9-15.9); WHITE BLOOD COUNT 7.8 K/mm3 (4.0-10.0)
[2017-07-17] MEDS: AMINO ACIDS/PROTEIN HYDROLYS 30 ML LIQUID.PKT PO SCH ×2 (09:15→18:03)
[2017-07-17] MEDS: TAMSULOSIN HCL 0.4 MG CAP.ER.24H (FP) PO SCH (09:56)
[2017-07-17] MEDS: METOPROLOL SUCCINATE 25 MG TAB.SR.24H (FP) PO SCH (09:56)
[2017-07-17] MEDS: amLODIPine BESYLATE 5 MG TABLET (FP) PO SCH (09:56)
[2017-07-17] MEDS: MULTIVITAMINS (DAILY MVI) TABLET (FP) PO SCH (09:56)
[2017-07-17] MEDS: ASCORBIC ACID 500 MG TABLET (FP) PO SCH (09:56)
[2017-07-17] MEDS: ASPIRIN COATED 81 MG TABLET.EC PO SCH (09:56)
[2017-07-17] MEDS: HEPARIN NA (PORCINE) 5,000 UNITS/ML 1ML VIAL SQ SCH ×2 (13:19→21:31)
[2017-07-17] MEDS: COLLAGENASE CLOSTRIDIUM HIST. 30 GRAMS TUBE TP SCH (18:03)
[2017-07-17] MEDS: SODIUM CHLORIDE 1,000 ML IV SCH ×2 (19:20→19:22)
--- NOTE | 2017-07-17 19:32 | PN ---
Progress Note (short form) - Note Progress Note: ckd ara/rhabdo/ atn Current Medications Amino Acids (Prosource No Carb Liquid Pkt) 30 ml PO BID@0800,1730 [facility] Last Admin: 07/16/17 17:54 Dose: Not Given Amlodipine Besylate (Norvasc -) 5 mg PO DAILY [facility] Last Admin: 07/16/17 11:13 Dose: 5 mg Ascorbic Acid (Vitamin C -) 500 mg PO DAILY [facility] Last Admin: 07/16/17 11:13 Dose: 500 mg Aspirin (Ecotrin -) 81 mg PO DAILY [facility] Last Admin: 07/16/17 11:13 Dose: 81 mg Collagenase (Santyl -) 1 applic TP DAILY [facility] Last Admin: 07/16/17 17:47 Dose: Not Given Heparin Sodium (Porcine) (Heparin -) 5,000 unit SQ BID [facility] Last Admin: 07/16/17 11:14 Dose: 5,000 unit Sodium Chloride (Normal Saline -) 1,000 mls @ 100 mls/hr IV ASDIR [facility] Last Admin: 07/16/17 12:35 Dose: 100 mls/hr Insulin Aspart (Novolog Vial Sliding Scale -) 1 vial SQ ACHS [facility] PRN Reason: Protocol Last Admin: 07/16/17 18:05 Dose: 6 units Insulin Detemir (Levemir Vial) 45 units SQ HS [facility] Last Admin: 07/15/17 22:58 Dose: 45 unit Insulin Detemir (Levemir Vial) 15 units SQ AM [facility] Last Admin: 07/16/17 06:27 Dose: Not Given Metoprolol Succinate (Toprol Xl -) 25 mg PO DAILY [facility] Last Admin: 07/16/17 11:13 Dose: 25 mg Multivitamins/Minerals/Vitamin C (Tab-A-Vit -) 1 tab PO DAILY [facility] Last Admin: 07/16/17 11:13 Dose: 1 tab Tamsulosin HCl (Flomax -) 0.4 mg PO DAILY@0830 [facility] Last Admin: 07/16/17 11:13 Dose: 0.4 mg Tramadol HCl (Ultram -) 50 mg PO BID PRN PRN Reason: PAIN LEVEL 6-10 Last Admin: 07/12/17 17:43 Dose: 50 mg Last Vital Signs Temp Pulse Resp BP Pulse Ox 98.2 F 77 18 161/87 98 07/16/17 18:20 07/16/17 18:20 07/16/17 18:20 07/16/17 18:20 07/15/17 21:00 CBC, BMP 07/17/17 05:30 07/17/17 05:30 CBC, BMP 07/15/17 06:30 07/16/17 06:10 IMP- RAA Underlying CKD renal function improving continue IVF follow up labs in am
--- NOTE | 2017-07-17 20:03 | PN ---
Progress Note, Physician - Current Medication List Current Medications: Active Medications Amino Acids (Prosource No Carb Liquid Pkt) 30 ml PO BID@0800,1730 [facility] Last Admin: 07/17/17 18:03 Dose: Not Given Amlodipine Besylate (Norvasc -) 5 mg PO DAILY [facility] Last Admin: 07/17/17 09:56 Dose: 5 mg Ascorbic Acid (Vitamin C -) 500 mg PO DAILY [facility] Last Admin: 07/17/17 09:56 Dose: 500 mg Aspirin (Ecotrin -) 81 mg PO DAILY [facility] Last Admin: 07/17/17 09:56 Dose: 81 mg Collagenase (Santyl -) 1 applic TP DAILY [facility] Last Admin: 07/17/17 18:03 Dose: 1 applic Heparin Sodium (Porcine) (Heparin -) 5,000 unit SQ BID [facility] Last Admin: 07/17/17 13:19 Dose: 5,000 unit Sodium Chloride (Normal Saline -) 1,000 mls @ 100 mls/hr IV ASDIR [facility] Last Admin: 07/17/17 19:22 Dose: 100 mls/hr Insulin Aspart (Novolog Vial Sliding Scale -) 1 vial SQ ACHS [facility] PRN Reason: Protocol Last Admin: 07/17/17 18:02 Dose: 8 units Insulin Detemir (Levemir Vial) 45 units SQ HS [facility] Last Admin: 07/16/17 22:24 Dose: 45 unit Insulin Detemir (Levemir Vial) 15 units SQ AM [facility] Last Admin: 07/17/17 06:27 Dose: 15 units Metoprolol Succinate (Toprol Xl -) 25 mg PO DAILY [facility] Last Admin: 07/17/17 09:56 Dose: 25 mg Multivitamins/Minerals/Vitamin C (Tab-A-Vit -) 1 tab PO DAILY [facility] Last Admin: 07/17/17 09:56 Dose: 1 tab Tamsulosin HCl (Flomax -) 0.4 mg PO DAILY@0830 [facility] Last Admin: 07/17/17 09:56 Dose: 0.4 mg Tramadol HCl (Ultram -) 50 mg PO BID PRN PRN Reason: PAIN LEVEL 6-10 Last Admin: 07/12/17 17:43 Dose: 50 mg - Objective Vital Signs: Vital Signs Temperature 98.6 F 07/17/17 14:41 Pulse Rate 79 07/17/17 14:41 Respiratory Rate 20 07/17/17 14:41 Blood Pressure 146/84 07/17/17 14:41 O2 Sat by Pulse Oximetry (%) 98 07/16/17 20:31 Cardiovascular: Yes: S1, S2 Respiratory: Yes: Regular, CTA Bilaterally Gastrointestinal: Yes: Normal Bowel Sounds, Soft Labs: CBC, BMP 07/17/17 05:30 07/17/17 05:30 INR, PTT INR 0.98 (0.82-1.09) 07/14/17 06:00 Assessment/Plan - Problems (1) Rhabdomyolysis Assessment/Plan: -improving, -CK-MB trending down -Nephrology consult -labs in AM Code(s): M62.82 - RHABDOMYOLYSIS (2) Abnormal liver enzymes Assessment/Plan: -GI consult appreciated -avoid hepatotoxic drugs -d/c tylenol, abx discontinued -ordered Tramadol 50 mg po BID PRN if any pain; max dosage 100 mg/day -abd u/s unremarkable -secondary to rhabdo? -follow trend, labs in AM Code(s): R74.8 - ABNORMAL LEVELS OF OTHER SERUM ENZYMES (3) Acute on chronic renal failure Assessment/Plan: -IVF -BUN/Cr improving -Nephrology consult -avoid nephrotoxic drugs -patient is urinating, no electrolyte imbalance, no dialysis indicated at this time. Code(s): N17.9 - ACUTE KIDNEY FAILURE, UNSPECIFIED; N18.9 - CHRONIC KIDNEY DISEASE, UNSPECIFIED Qualifiers: Acute renal failure type: unspecified Chronic kidney disease stage: unspecified stage Qualified Code(s): N17.9 - Acute kidney failure, unspecified ; N18.9 - Chronic kidney disease, unspecified; N18.9 - Chronic kidney disease, unspecified (4) Dehydration Assessment/Plan: -IVF -repeat labs in AM Code(s): E86.0 - DEHYDRATION (5) UTI (urinary tract infection) due to Enterococcus Assessment/Plan: -IV abx discontinued -UC contaminated -ID consult -afebrile Code(s): N39.0 - URINARY TRACT INFECTION, SITE NOT SPECIFIED; B95.2 - ENTEROCOCCUS THE CAUSE OF DISEASES CLASSIFIED ELSEWHERE (6) Diabetes mellitus Assessment/Plan: -seen by Endocrinology -Insulin short and long acting -improving trend -diabetic diet Code(s): E11.9 - TYPE 2 DIABETES MELLITUS WITHOUT COMPLICATIONS Qualifiers: Diabetes mellitus type: type 2 Diabetes mellitus complication status: with hyperglycemia Diabetes mellitus vermin exterminator insulin use: with retirement use Qualified Code(s): E11.65 - Type 2 diabetes mellitus with hyperglycemia (7) Anemia Assessment/Plan: -2/2 chronic disease -stool OB pending -Iron profile, B 12, TSH,FT4, Folate normal Code(s): D64.9 - ANEMIA, UNSPECIFIED
[2017-07-18] MEDS: INSULIN DETEMIR 100 UNITS/ML MDV SQ SCH ×2 (06:21→21:48)
[2017-07-18] MEDS: INSULIN SLIDING SCALE (NOVOLOG) 1 VIAL SQ SCH ×4 (06:21→21:48)
[2017-07-18] MEDS ORDERED: INSULIN DETEMIR 100 UNITS/ML MDV SQ ONE (06:28)
[2017-07-18] MEDS ORDERED: INSULIN (NOVOLOG) ASPART 100 UNITS/ML 10ML VIAL ONE ×2 (06:28→20:15)
[2017-07-18 07:03] LABS: BASO % 0.7 % (0-2.0); EOS % 4.1 % (0-4.5); HEMATOCRIT 31.5 % (35.4-49); HEMOGLOBIN 10.4 GM/dL (11.7-16.9); LYMPH % 16.5 % (8-40); MCH 26.2 pg (25.7-33.7); MCHC 33.1 g/dl (32.0-35.9); MEAN PLT VOLUME 8.2 fl (7.5-11.1); MONO % 7.1 % (3.8-10.2); NEUT % 71.6 % (42.8-82.8); PLATELET COUNT 299 K/MM3 (134-434); RBC 3.99 M/mm3 (4.00-5.60); WHITE BLOOD COUNT 8.4 K/mm3 (4.0-10.0)
[2017-07-18 07:51] LABS: ALBUMIN 3.4 g/dl (3.4-5.0); ANION GAP 10 (8-16); BLOOD UREA NITROGEN 46 mg/dL (7-18); CALCIUM 8.3 mg/dL (8.5-10.1); CHLORIDE 109 mmol/L (98-107); CO2 23 mmol/L (21-32); GLUCOSE,RANDOM 103 mg/dL (74-106); POTASSIUM 3.8 mmol/L (3.5-5.1); SODIUM 142 mmol/L (136-145)
[2017-07-18 07:58] LABS: ALK PHOS 121 U/L (45-117); BILIRUBIN,TOTAL 0.4 mg/dL (0.2-1.0); CREATININE 2.8 mg/dL (0.7-1.3); SGOT/AST 35 U/L (15-37); SGPT/ALT 117 U/L (12-78); TOT PROT 7.1 g/dl (6.4-8.2)
--- NOTE | 2017-07-18 08:21 | PN ---
Progress Note, Physician - Current Medication List Current Medications: Active Medications Amino Acids (Prosource No Carb Liquid Pkt) 30 ml PO BID@0800,1730 [facility] Last Admin: 07/17/17 18:03 Dose: Not Given Amlodipine Besylate (Norvasc -) 5 mg PO DAILY [facility] Last Admin: 07/17/17 09:56 Dose: 5 mg Ascorbic Acid (Vitamin C -) 500 mg PO DAILY [facility] Last Admin: 07/17/17 09:56 Dose: 500 mg Aspirin (Ecotrin -) 81 mg PO DAILY [facility] Last Admin: 07/17/17 09:56 Dose: 81 mg Collagenase (Santyl -) 1 applic TP DAILY [facility] Last Admin: 07/17/17 18:03 Dose: 1 applic Heparin Sodium (Porcine) (Heparin -) 5,000 unit SQ BID [facility] Last Admin: 07/17/17 21:31 Dose: 5,000 unit Sodium Chloride (Normal Saline -) 1,000 mls @ 100 mls/hr IV ASDIR [facility] Last Admin: 07/17/17 19:22 Dose: 100 mls/hr Insulin Aspart (Novolog Vial Sliding Scale -) 1 vial SQ [facility] PRN Reason: Protocol Last Admin: 07/18/17 06:21 Dose: Not Given Insulin Detemir (Levemir Vial) 45 units SQ HS [facility] Last Admin: 07/17/17 21:45 Dose: 45 unit Insulin Detemir (Levemir Vial) 15 units SQ AM [facility] Last Admin: 07/18/17 06:21 Dose: 15 units Metoprolol Succinate (Toprol Xl -) 25 mg PO DAILY [facility] Last Admin: 07/17/17 09:56 Dose: 25 mg Multivitamins/Minerals/Vitamin C (Tab-A-Vit -) 1 tab PO DAILY [facility] Last Admin: 07/17/17 09:56 Dose: 1 tab Tamsulosin HCl (Flomax -) 0.4 mg PO DAILY@0830 [facility] Last Admin: 07/17/17 09:56 Dose: 0.4 mg - Objective Vital Signs: Vital Signs Temperature 97.7 F 07/18/17 05:41 Pulse Rate 78 07/18/17 05:41 Respiratory Rate 20 07/18/17 05:41 Blood Pressure 146/83 07/18/17 05:41 O2 Sat by Pulse Oximetry (%) 98 01/20/18 20:31 Cardiovascular: Yes: S1, S2 Respiratory: Yes: Regular, CTA Bilaterally Gastrointestinal: Yes: Normal Bowel Sounds, Soft Labs: CBC, BMP 07/18/17 05:56 07/18/17 05:56 INR, PTT INR 0.98 (0.82-1.09) 07/14/17 06:00 Assessment/Plan - Problems (1) Rhabdomyolysis Assessment/Plan: -improving, -CK-MB trending down -Nephrology consult -labs in AM Code(s): M62.82 - RHABDOMYOLYSIS (2) Abnormal liver enzymes Assessment/Plan: -GI consult appreciated -avoid hepatotoxic drugs -d/c tylenol, abx discontinued -ordered Tramadol 50 mg po BID PRN if any pain; max dosage 100 mg/day -abd u/s unremarkable -secondary to rhabdo? -follow trend, labs in AM Code(s): R74.8 - ABNORMAL LEVELS OF OTHER SERUM ENZYMES (3) Acute on chronic renal failure Assessment/Plan: -IVF -BUN/Cr improving Laboratory Tests 07/16/17 07/17/17 07/18/17 06:10 05:30 05:56 Creatinine 3.1 H D 3.3 H 2.8 H -Nephrology consult -avoid nephrotoxic drugs -patient is urinating, no electrolyte imbalance, no dialysis indicated at this time. Code(s): N17.9 - ACUTE KIDNEY FAILURE, UNSPECIFIED; N18.9 - CHRONIC KIDNEY DISEASE, UNSPECIFIED Qualifiers: Acute renal failure type: unspecified Chronic kidney disease stage: unspecified stage Qualified Code(s): N17.9 - Acute kidney failure, unspecified ; N18.9 - Chronic kidney disease, unspecified; N18.9 - Chronic kidney disease, unspecified (4) Dehydration Assessment/Plan: -IVF -repeat labs in AM Code(s): E86.0 - DEHYDRATION (5) UTI (urinary tract infection) due to Enterococcus Assessment/Plan: -IV abx discontinued -UC contaminated -ID consult -afebrile Code(s): N39.0 - URINARY TRACT INFECTION, SITE NOT SPECIFIED; B95.2 - ENTEROCOCCUS THE CAUSE OF DISEASES CLASSIFIED ELSEWHERE (6) Diabetes mellitus Assessment/Plan: -seen by Endocrinology -Insulin short and long acting -improving trend -diabetic diet Code(s): E11.9 - TYPE 2 DIABETES MELLITUS WITHOUT COMPLICATIONS Qualifiers: Diabetes mellitus type: type 2 Diabetes mellitus complication status: with hyperglycemia Diabetes mellitus extermination inspector insulin use: with retirement use Qualified Code(s): E11.65 - Type 2 diabetes mellitus with hyperglycemia (7) Anemia Assessment/Plan: -2/2 chronic disease -stool OB pending -Iron profile, B 12, TSH,FT4, Folate normal Code(s): D64.9 - ANEMIA, UNSPECIFIED
[2017-07-18] MEDS: AMINO ACIDS/PROTEIN HYDROLYS 30 ML LIQUID.PKT PO SCH ×3 (08:30→16:44)
[2017-07-18] MEDS: TAMSULOSIN HCL 0.4 MG CAP.ER.24H (FP) PO SCH (08:30)
[2017-07-18] MEDS: HEPARIN NA (PORCINE) 5,000 UNITS/ML 1ML VIAL SQ SCH ×2 (09:37→21:48)
[2017-07-18] MEDS: ASPIRIN COATED 81 MG TABLET.EC PO SCH (09:37)
[2017-07-18] MEDS: ASCORBIC ACID 500 MG TABLET (FP) PO SCH (09:37)
[2017-07-18] MEDS: amLODIPine BESYLATE 5 MG TABLET (FP) PO SCH (09:37)
[2017-07-18] MEDS: METOPROLOL SUCCINATE 25 MG TAB.SR.24H (FP) PO SCH (09:37)
[2017-07-18] MEDS: MULTIVITAMINS (DAILY MVI) TABLET (FP) PO SCH (09:37)
[2017-07-18] MEDS: COLLAGENASE CLOSTRIDIUM HIST. 30 GRAMS TUBE TP SCH (09:41)
[2017-07-18] MEDS: SODIUM CHLORIDE 1,000 ML IV SCH ×2 (11:35→21:47)
--- NOTE | 2017-07-18 16:37 | PN ---
Progress Note, Physician History of Present Illness: Pt seen and examined at bedside. He denies shortness of breath. - Current Medication List Current Medications: Active Medications Amino Acids (Prosource No Carb Liquid Pkt) 30 ml PO BID@0800,1730 [facility] Last Admin: 07/18/17 08:31 Dose: Not Given Amlodipine Besylate (Norvasc -) 5 mg PO DAILY [facility] Last Admin: 07/18/17 09:37 Dose: 5 mg Ascorbic Acid (Vitamin C -) 500 mg PO DAILY [facility] Last Admin: 07/18/17 09:37 Dose: 500 mg Aspirin (Ecotrin -) 81 mg PO DAILY [facility] Last Admin: 07/18/17 09:37 Dose: 81 mg Collagenase (Santyl -) 1 applic TP DAILY [facility] Last Admin: 07/18/17 09:41 Dose: 1 applic Heparin Sodium (Porcine) (Heparin -) 5,000 unit SQ BID [facility] Last Admin: 07/18/17 09:37 Dose: 5,000 unit Sodium Chloride (Normal Saline -) 1,000 mls @ 100 mls/hr IV ASDIR [facility] Last Admin: 07/18/17 11:35 Dose: 100 mls/hr Insulin Aspart (Novolog Vial Sliding Scale -) 1 vial SQ ACHS [facility] PRN Reason: Protocol Last Admin: 07/18/17 11:24 Dose: 6 units Insulin Detemir (Levemir Vial) 45 units SQ HS [facility] Last Admin: 07/17/17 21:45 Dose: 45 unit Insulin Detemir (Levemir Vial) 15 units SQ AM [facility] Last Admin: 07/18/17 06:21 Dose: 15 units Metoprolol Succinate (Toprol Xl -) 25 mg PO DAILY [facility] Last Admin: 07/18/17 09:37 Dose: 25 mg Multivitamins/Minerals/Vitamin C (Tab-A-Vit -) 1 tab PO DAILY [facility] Last Admin: 07/18/17 09:37 Dose: 1 tab Tamsulosin HCl (Flomax -) 0.4 mg PO DAILY@0830 [facility] Last Admin: 07/18/17 08:30 Dose: 0.4 mg - Objective Vital Signs: Vital Signs Temperature 97.3 F L 07/18/17 13:25 Pulse Rate 84 07/18/17 13:25 Respiratory Rate 20 07/18/17 13:25 Blood Pressure 153/80 07/18/17 13:25 O2 Sat by Pulse Oximetry (%) 98 07/18/17 09:00 Constitutional: Yes: Calm Eyes: Yes: Conjunctiva Clear HENT: Yes: Atraumatic Neck: Yes: Supple Cardiovascular: Yes: S1, S2 Respiratory: Yes: CTA Bilaterally Gastrointestinal: Yes: Soft Genitourinary: Yes: WNL Musculoskeletal: Yes: WNL Edema: Yes Edema: LLE: Trace, RLE: Trace Neurological: Yes: Oriented Psychiatric: Yes: Oriented Labs: CBC, BMP 07/18/17 05:56 07/18/17 05:56 INR, PTT INR 0.98 (0.82-1.09) 07/14/17 06:00 Problem List - Problems (1) Abnormal liver enzymes Code(s): R74.8 - ABNORMAL LEVELS OF OTHER SERUM ENZYMES (2) Acute kidney injury Code(s): N17.9 - ACUTE KIDNEY FAILURE, UNSPECIFIED (3) Acute on chronic renal failure Code(s): N17.9 - ACUTE KIDNEY FAILURE, UNSPECIFIED; N18.9 - CHRONIC KIDNEY DISEASE, UNSPECIFIED Qualifiers: Acute renal failure type: unspecified Chronic kidney disease stage: unspecified stage Qualified Code(s): N17.9 - Acute kidney failure, unspecified ; N18.9 - Chronic kidney disease, unspecified; N18.9 - Chronic kidney disease, unspecified (4) Anemia Code(s): D64.9 - ANEMIA, UNSPECIFIED (5) Elevated creatine kinase level Code(s): R74.8 - ABNORMAL LEVELS OF OTHER SERUM ENZYMES (6) Rhabdomyolysis Code(s): M62.82 - RHABDOMYOLYSIS Assessment/Plan Current Medications Generic Name Dose Route Start Last Admin Trade Name Freq PRN Reason Stop Dose Admin Amino Acids 30 ml 07/12/17 08:00 07/18/17 08:31 Prosource No Carb Liquid Pkt PO Not Given BID@0800,1730 [facility] Amlodipine Besylate 5 mg 07/09/17 10:00 07/18/17 09:37 Norvasc - PO 5 mg DAILY [facility] Administration Ascorbic Acid 500 mg 07/12/17 10:00 07/18/17 09:37 Vitamin C - PO 500 mg DAILY [facility] Administration Aspirin 81 mg 07/09/17 10:00 07/18/17 09:37 Ecotrin - PO 81 mg DAILY [facility] Administration Collagenase 1 applic 07/11/17 16:45 07/18/17 09:41 Santyl - TP 1 applic DAILY [facility] Administration Heparin Sodium (Porcine) 5,000 unit 07/08/17 22:00 07/18/17 09:37 Heparin - SQ 5,000 unit BID [facility] Administration Sodium Chloride 1,000 mls @ 100 mls/hr 07/15/17 20:00 07/18/17 11:35 Normal Saline - IV 100 mls/hr ASDIR [facility] Administration Insulin Aspart 1 vial 07/10/17 21:54 07/18/17 11:24 Novolog Vial Sliding Scale - SQ 6 units ACHS [facility] Administration Protocol Insulin Detemir 45 units 07/08/17 22:00 07/17/17 21:45 Levemir Vial SQ 45 unit HS [facility] Administration Insulin Detemir 15 units 07/12/17 07:00 07/18/17 06:21 Levemir Vial SQ 15 units AM [facility] Administration Metoprolol Succinate 25 mg 07/09/17 10:00 07/18/17 09:37 Toprol Xl - PO 25 mg DAILY [facility] Administration Multivitamins/Minerals/Vitamin C 1 tab 07/12/17 10:00 07/18/17 09:37 Tab-A-Vit - PO 1 tab DAILY [facility] Administration Tamsulosin HCl 0.4 mg 07/09/17 08:30 07/18/17 08:30 Flomax - PO 0.4 mg DAILY@0830 [facility] Administration Laboratory Tests 07/12/17 07/13/17 07/18/17 14:30 07:12 05:56 Creatine Kinase 182 c-ANCA <1:20 Proteinase 3 (PR3) <3.5 p-ANCA <1:20 Atypical p-ANCA <1:20 Myeloperoxidase Ab <9.0 Double Strand DNA Ab <1 Glomerular Base Memb Ab 4 Impression 1. CKD 2. ARA 3. HTN 4. DM 5. proteinuria 6. hyperlipidemia 7. sepsis 8. rhabdo 9. peripheral eosinophilia Plan - cont fluids - repeat labs in am - renal workup neg - cpk is improved - likely etiology of ara is severe pre-renal disease, atn and rhabdo
[2017-07-19] MEDS: INSULIN SLIDING SCALE (NOVOLOG) 1 VIAL SQ SCH ×4 (06:42→21:14)
[2017-07-19] MEDS: INSULIN DETEMIR 100 UNITS/ML MDV SQ SCH ×2 (06:43→21:14)
--- NOTE | 2017-07-19 07:52 | PN ---
Progress Note (short form) - Note Progress Note: Hepatic Panel Total Bilirubin 0.4 mg/dL (0.2-1.0) 07/18/17 05:56 Direct Bilirubin < 0.2 mg/dL (0.0-0.2) 07/14/17 06:00 AST 35 U/L (15-37) D 07/18/17 05:56 ALT 117 U/L (12-78) H D 07/18/17 05:56 Alkaline Phosphatase 121 U/L (45-117) H 07/18/17 05:56 Albumin 3.4 g/dl (3.4-5.0) 07/18/17 05:56 Problem List - Problems (1) Drug-induced hepatic toxicity Code(s): K71.6 - TOXIC LIVER DISEASE WITH HEPATITIS, NOT ELSEWHERE CLASSIFIED; T50.905A - ADVERSE EFFECT OF UNSP DRUG/MEDS/BIOL SUBST, INIT (2) Drug-induced hepatitis Code(s): K71.6 - TOXIC LIVER DISEASE WITH HEPATITIS, NOT ELSEWHERE CLASSIFIED; T50.905A - ADVERSE EFFECT OF UNSP DRUG/MEDS/BIOL SUBST, INIT (3) Abnormal liver enzymes Code(s): R74.8 - ABNORMAL LEVELS OF OTHER SERUM ENZYMES
[2017-07-19 08:04] LABS: ANION GAP 9 (8-16); BLOOD UREA NITROGEN 48 mg/dL (7-18); CALCIUM 8.4 mg/dL (8.5-10.1); CHLORIDE 110 mmol/L (98-107); CO2 26 mmol/L (21-32); CREATININE 2.4 mg/dL (0.7-1.3); GLUCOSE,RANDOM 104 mg/dL (74-106); POTASSIUM 3.7 mmol/L (3.5-5.1); SODIUM 145 mmol/L (136-145)
[2017-07-19] MEDS: AMINO ACIDS/PROTEIN HYDROLYS 30 ML LIQUID.PKT PO SCH ×2 (09:26→18:07)
[2017-07-19] MEDS: ASPIRIN COATED 81 MG TABLET.EC PO SCH (09:27)
[2017-07-19] MEDS: HEPARIN NA (PORCINE) 5,000 UNITS/ML 1ML VIAL SQ SCH ×2 (09:27→21:14)
[2017-07-19] MEDS: TAMSULOSIN HCL 0.4 MG CAP.ER.24H (FP) PO SCH (09:27)
[2017-07-19] MEDS: METOPROLOL SUCCINATE 25 MG TAB.SR.24H (FP) PO SCH (09:28)
[2017-07-19] MEDS: ASCORBIC ACID 500 MG TABLET (FP) PO SCH (09:28)
[2017-07-19] MEDS: amLODIPine BESYLATE 5 MG TABLET (FP) PO SCH (09:28)
[2017-07-19] MEDS: MULTIVITAMINS (DAILY MVI) TABLET (FP) PO SCH (09:28)
[2017-07-19] MEDS: COLLAGENASE CLOSTRIDIUM HIST. 30 GRAMS TUBE TP SCH (09:28)
[2017-07-19] MEDS ORDERED: INSULIN (NOVOLOG) ASPART 100 UNITS/ML 10ML VIAL ONE ×2 (11:05→21:04)
--- NOTE | 2017-07-19 13:48 | PN ---
Progress Note, Physician History of Present Illness: Pt seen and examined at bedside. He is awake and alert. He denies shortness of breath. - Current Medication List Current Medications: Active Medications Amino Acids (Prosource No Carb Liquid Pkt) 30 ml PO BID@0800,1730 [facility] Last Admin: 07/19/17 09:26 Dose: 30 ml Amlodipine Besylate (Norvasc -) 5 mg PO DAILY [facility] Last Admin: 07/19/17 09:28 Dose: 5 mg Ascorbic Acid (Vitamin C -) 500 mg PO DAILY [facility] Last Admin: 07/19/17 09:28 Dose: 500 mg Aspirin (Ecotrin -) 81 mg PO DAILY [facility] Last Admin: 07/19/17 09:27 Dose: 81 mg Collagenase (Santyl -) 1 applic TP DAILY [facility] Last Admin: 07/19/17 09:28 Dose: 1 applic Heparin Sodium (Porcine) (Heparin -) 5,000 unit SQ BID [facility] Last Admin: 07/19/17 09:27 Dose: 5,000 unit Sodium Chloride (Normal Saline -) 1,000 mls @ 100 mls/hr IV ASDIR [facility] Last Admin: 07/18/17 21:47 Dose: 100 mls/hr Insulin Aspart (Novolog Vial Sliding Scale -) [address] [facility] PRN Reason: Protocol Last Admin: 07/19/17 11:09 Dose: 9 units Insulin Detemir (Levemir Vial) 45 units SQ HS [facility] Last Admin: 07/18/17 21:48 Dose: 45 unit Insulin Detemir (Levemir Vial) 15 units SQ AM [facility] Last Admin: 07/19/17 06:43 Dose: 15 units Metoprolol Succinate (Toprol Xl -) 25 mg PO DAILY [facility] Last Admin: 07/19/17 09:28 Dose: 25 mg Multivitamins/Minerals/Vitamin C (Tab-A-Vit -) 1 tab PO DAILY [facility] Last Admin: 07/19/17 09:28 Dose: 1 tab Tamsulosin HCl (Flomax -) 0.4 mg PO DAILY@0830 [facility] Last Admin: 07/19/17 09:27 Dose: 0.4 mg - Objective Vital Signs: Vital Signs Temperature 98 F 07/19/17 09:00 Pulse Rate 82 07/19/17 09:00 Respiratory Rate 16 07/19/17 09:00 Blood Pressure 134/75 07/19/17 09:00 O2 Sat by Pulse Oximetry (%) 96 07/19/17 09:00 Constitutional: Yes: Calm Eyes: Yes: Conjunctiva Clear HENT: Yes: Atraumatic Neck: Yes: Supple Cardiovascular: Yes: S1, S2 Respiratory: Yes: CTA Bilaterally Gastrointestinal: Yes: Soft Genitourinary: Yes: WNL Musculoskeletal: Yes: WNL Edema: LLE: Trace, RLE: Trace Neurological: Yes: Oriented Psychiatric: Yes: Oriented Labs: CBC, BMP 07/18/17 05:56 07/19/17 06:00 INR, PTT INR 0.98 (0.82-1.09) 07/14/17 06:00 Problem List - Problems (1) Abnormal liver enzymes Code(s): R74.8 - ABNORMAL LEVELS OF OTHER SERUM ENZYMES (2) Acute kidney injury Code(s): N17.9 - ACUTE KIDNEY FAILURE, UNSPECIFIED (3) Acute on chronic renal failure Code(s): N17.9 - ACUTE KIDNEY FAILURE, UNSPECIFIED; N18.9 - CHRONIC KIDNEY DISEASE, UNSPECIFIED Qualifiers: Acute renal failure type: unspecified Chronic kidney disease stage: unspecified stage Qualified Code(s): N17.9 - Acute kidney failure, unspecified ; N18.9 - Chronic kidney disease, unspecified; N18.9 - Chronic kidney disease, unspecified (4) Anemia Code(s): D64.9 - ANEMIA, UNSPECIFIED (5) Elevated creatine kinase level Code(s): R74.8 - ABNORMAL LEVELS OF OTHER SERUM ENZYMES (6) Rhabdomyolysis Code(s): M62.82 - RHABDOMYOLYSIS Assessment/Plan Current Medications Generic Name Dose Route Start Last Admin Trade Name Freq PRN Reason Stop Dose Admin Amino Acids 30 ml 07/12/17 08:00 07/19/17 09:26 Prosource No Carb Liquid Pkt PO 30 ml BID@0800,1730 [facility] Administration Amlodipine Besylate 5 mg 07/09/17 10:00 07/19/17 09:28 Norvasc - PO 5 mg DAILY [facility] Administration Ascorbic Acid 500 mg 07/12/17 10:00 07/19/17 09:28 Vitamin C - PO 500 mg DAILY [facility] Administration Aspirin 81 mg 07/09/17 10:00 07/19/17 09:27 Ecotrin - PO 81 mg DAILY [facility] Administration Collagenase 1 applic 07/11/17 16:45 07/19/17 09:28 Santyl - TP 1 applic DAILY [facility] Administration Heparin Sodium (Porcine) 5,000 unit 07/08/17 22:00 07/19/17 09:27 Heparin - SQ 5,000 unit BID [facility] Administration Sodium Chloride 1,000 mls @ 100 mls/hr 07/15/17 20:00 07/18/17 21:47 Normal Saline - IV 100 mls/hr ASDIR [facility] Administration Insulin Aspart 1 vial 07/10/17 21:54 07/19/17 11:09 Novolog Vial Sliding Scale - SQ 9 units ACHS [facility] Administration Protocol Insulin Detemir 45 units 07/08/17 22:00 07/18/17 21:48 Levemir Vial SQ 45 unit HS [facility] Administration Insulin Detemir 15 units 07/12/17 07:00 07/19/17 06:43 Levemir Vial SQ 15 units AM [facility] Administration Metoprolol Succinate 25 mg 07/09/17 10:00 07/19/17 09:28 Toprol Xl - PO 25 mg DAILY [facility] Administration Multivitamins/Minerals/Vitamin C 1 tab 07/12/17 10:00 07/19/17 09:28 Tab-A-Vit - PO 1 tab DAILY [facility] Administration Tamsulosin HCl 0.4 mg 07/09/17 08:30 07/19/17 09:27 Flomax - PO 0.4 mg DAILY@0830 [facility] Administration Impression 1. CKD 2. ARA 3. HTN 4. DM 5. proteinuria 6. hyperlipidemia 7. sepsis 8. rhabdo 9. peripheral eosinophilia Plan - renal function continues to improve - repeat labs in am - cont with fluids - cpk is improved - likely etiology of ara is severe pre-renal disease, atn and rhabdo
--- NOTE | 2017-07-19 14:17 | PN ---
Progress Note, Physician Chief Complaint: patient seen and examined on ivf cr is still high but trending down - Current Medication List Current Medications: Active Medications Amino Acids (Prosource No Carb Liquid Pkt) 30 ml PO BID@0800,1730 [facility] Last Admin: 07/19/17 09:26 Dose: 30 ml Amlodipine Besylate (Norvasc -) 5 mg PO DAILY [facility] Last Admin: 07/19/17 09:28 Dose: 5 mg Ascorbic Acid (Vitamin C -) 500 mg PO DAILY [facility] Last Admin: 07/19/17 09:28 Dose: 500 mg Aspirin (Ecotrin -) 81 mg PO DAILY [facility] Last Admin: 07/19/17 09:27 Dose: 81 mg Collagenase (Santyl -) 1 applic TP DAILY [facility] Last Admin: 07/19/17 09:28 Dose: 1 applic Heparin Sodium (Porcine) (Heparin -) 5,000 unit SQ BID [facility] Last Admin: 07/19/17 09:27 Dose: 5,000 unit Sodium Chloride (Normal Saline -) 1,000 mls @ 100 mls/hr IV ASDIR [facility] Last Admin: 07/18/17 21:47 Dose: 100 mls/hr Insulin Aspart (Novolog Vial Sliding Scale -) 1 vial SQ ACHS [facility] PRN Reason: Protocol Last Admin: 07/19/17 11:09 Dose: 9 units Insulin Detemir (Levemir Vial) 45 units SQ HS [facility] Last Admin: 07/18/17 21:48 Dose: 45 unit Insulin Detemir (Levemir Vial) 15 units SQ AM [facility] Last Admin: 07/19/17 06:43 Dose: 15 units Metoprolol Succinate (Toprol Xl -) 25 mg PO DAILY [facility] Last Admin: 07/19/17 09:28 Dose: 25 mg Multivitamins/Minerals/Vitamin C (Tab-A-Vit -) 1 tab PO DAILY [facility] Last Admin: 07/19/17 09:28 Dose: 1 tab Tamsulosin HCl (Flomax -) 0.4 mg PO DAILY@0830 [facility] Last Admin: 07/19/17 09:27 Dose: 0.4 mg - Objective Vital Signs: Vital Signs Temperature 98.4 F 07/19/17 14:11 Pulse Rate 72 07/19/17 14:11 Respiratory Rate 18 07/19/17 14:11 Blood Pressure 134/75 07/19/17 14:11 O2 Sat by Pulse Oximetry (%) 96 07/19/17 09:00 Constitutional: Yes: Calm Cardiovascular: Yes: Regular Rate and Rhythm, S1, S2 Respiratory: Yes: CTA Bilaterally Gastrointestinal: Yes: Soft Neurological: Yes: Alert, Oriented Labs: CBC, BMP 07/18/17 05:56 07/19/17 06:00 INR, PTT INR 0.98 (0.82-1.09) 07/14/17 06:00 Problem List - Problems (1) Abnormal liver enzymes Assessment/Plan: LFT trending down avoid all hepatotoxic drugs Code(s): R74.8 - ABNORMAL LEVELS OF OTHER SERUM ENZYMES (2) Rhabdomyolysis Assessment/Plan: CKMB trending down now normal ivf Code(s): M62.82 - RHABDOMYOLYSIS (3) Acute kidney injury Assessment/Plan: on IVF BUN/Cr improving possible dc in AM Code(s): N17.9 - ACUTE KIDNEY FAILURE, UNSPECIFIED (4) Type 2 diabetes mellitus with other diabetic kidney complication Assessment/Plan: on insulin bgm noted Code(s): E11.29 - TYPE 2 DIABETES MELLITUS W OTH DIABETIC KIDNEY COMPLICATION Assessment/Plan plan for discharge in AM if cr further improves and to follw up with PMD dr justine guy
--- NOTE | 2017-07-19 17:47 | PN ---
Progress Note (short form) - Note Progress Note: Patient seen and examined Clinically improved Last Vital Signs Temp Pulse Resp BP Pulse Ox 98.4 F 72 18 134/75 96 07/19/17 14:11 07/19/17 14:11 07/19/17 14:11 07/19/17 14:11 07/19/17 09:00 HEENT: RADHA, EOM Intact Cor: RSR, No murmurs, No gallops Lungs: diminished breath sounds Abd: Soft, Normal bowel sounds, No organomegaly Ext:No significant edema, s/p amputation Skin: No rashes, Integument intact CBC, BMP 07/18/17 05:56 07/19/17 06:00 Current Medications Generic Name Dose Route Start Last Admin Trade Name Rob PRN Reason Stop Dose Admin Amino Acids 30 ml 07/12/17 08:00 07/19/17 09:26 Prosource No Carb Liquid Pkt PO 30 ml BID@0800,1730 [facility] Administration Amlodipine Besylate 5 mg 07/09/17 10:00 07/19/17 09:28 Norvasc - PO 5 mg DAILY [facility] Administration Ascorbic Acid 500 mg 07/12/17 10:00 07/19/17 09:28 Vitamin C - PO 500 mg DAILY [facility] Administration Aspirin 81 mg 07/09/17 10:00 07/19/17 09:27 Ecotrin - PO 81 mg DAILY [facility] Administration Collagenase 1 applic 07/11/17 16:45 07/19/17 09:28 Santyl - TP 1 applic DAILY [facility] Administration Heparin Sodium (Porcine) 5,000 unit 07/08/17 22:00 07/19/17 09:27 Heparin - SQ 5,000 unit BID [facility] Administration Sodium Chloride 1,000 mls @ 100 mls/hr 07/15/17 20:00 07/18/17 21:47 Normal Saline - IV 100 mls/hr ASDIR [facility] Administration Insulin Aspart 1 vial 07/10/17 21:54 07/19/17 16:54 Novolog Vial Sliding Scale - SQ 6 units ACHS [facility] Administration Protocol Insulin Detemir 45 units 07/08/17 22:00 07/18/17 21:48 Levemir Vial SQ 45 unit HS [facility] Administration Insulin Detemir 15 units 07/12/17 07:00 07/19/17 06:43 Levemir Vial SQ 15 units AM [facility] Administration Metoprolol Succinate 25 mg 07/09/17 10:00 07/19/17 09:28 Toprol Xl - PO 25 mg DAILY [facility] Administration Multivitamins/Minerals/Vitamin C 1 tab 07/12/17 10:00 07/19/17 09:28 Tab-A-Vit - PO 1 tab DAILY [facility] Administration Tamsulosin HCl 0.4 mg 07/09/17 08:30 07/19/17 09:27 Flomax - PO 0.4 mg DAILY@0830 [facility] Administration Impression: ARA Rhabdomyolysis Abnormal LFT's Anemia DM Plan: Discharge plans with out patient monitoring of LFT's, Hct, creatinine etc. Para
[2017-07-19] MEDS: SODIUM CHLORIDE 1,000 ML IV SCH (21:13)
[2017-07-20] MEDS: INSULIN SLIDING SCALE (NOVOLOG) 1 VIAL SQ SCH (06:45)
[2017-07-20] MEDS: INSULIN DETEMIR 100 UNITS/ML MDV SQ SCH (06:45)
[2017-07-20 07:48] LABS: CHLORIDE 110 mmol/L (98-107); POTASSIUM 3.8 mmol/L (3.5-5.1); SODIUM 144 mmol/L (136-145)
[2017-07-20 08:00] LABS: ANION GAP 10 (8-16); BLOOD UREA NITROGEN 41 mg/dL (7-18); CALCIUM 8.9 mg/dL (8.5-10.1); CO2 24 mmol/L (21-32); GLUCOSE,RANDOM 111 mg/dL (74-106)
[2017-07-20] MEDS: AMINO ACIDS/PROTEIN HYDROLYS 30 ML LIQUID.PKT PO SCH (08:00)
[2017-07-20] MEDS: TAMSULOSIN HCL 0.4 MG CAP.ER.24H (FP) PO SCH (08:00)
--- NOTE | 2017-07-20 09:01 | DS ---
Physical Examination Vital Signs: Vital Signs Temperature 97.5 F L 07/20/17 06:00 Pulse Rate 78 07/20/17 06:00 Respiratory Rate 18 07/20/17 06:00 Blood Pressure 157/87 07/20/17 06:00 O2 Sat by Pulse Oximetry (%) 98 07/19/17 21:00 Labs: CBC, BMP 07/18/17 05:56 07/20/17 06:00 Discharge Summary Reason For Visit: ELEVATED CREATINE KINASE LEVEL; CKD Current Active Problems Abnormal liver enzymes (Acute) Acute kidney injury (Acute) Acute on chronic renal failure (Acute) Anemia (Acute) Dehydration (Acute) Drug-induced hepatic toxicity (Acute) Drug-induced hepatitis (Acute) Elevated creatine kinase level (Acute) Rhabdomyolysis (Acute) Type 2 diabetes mellitus with other diabetic kidney complication (Acute) UTI (urinary tract infection) due to Enterococcus (Acute) Hospital Course: Chief Complaint: WEAKNESS/ELEVATED CARDIAC ENZYMES History of Present Illness: 56 Y/O MALE WITH HISTORY OF UNCONTROLLED DIABETES WITH MULTIPLE AMPUTATIONS AND SKIN DEBRIDEMENTS FOR ULCERS AND OSTEOMYELITIS, CRI, HTN, LIPIDEMIA, BEDBOUND PRESENTS WITH FEVERS AND ELEVATED CARDIAC ENZYMES. 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: Peripheral Neuropathy, Other (IDDM) Cardiovascular: Yes: HTN, Hyperlipdemia, Other (peripheral vascular disease) Renal/: Yes: Renal Inusuff Musculoskeletal: Yes: Osteoarthritis Endocrine: Yes: Diabetes Mellitus (Insulin dependent) - Past Surgical History Past Surgical History: Yes: Amputation (lt tma, rt toes, prostate seed implant.) - Problems (1) Abnormal liver enzymes Assessment/Plan: LFT trending down avoid all hepatotoxic drugs Code(s): R74.8 - ABNORMAL LEVELS OF OTHER SERUM ENZYMES (2) Rhabdomyolysis Assessment/Plan: CKMB trending down now normal DC ivf Code(s): M62.82 - RHABDOMYOLYSIS (3) Acute kidney injury Assessment/Plan: off IVF BUN/Cr improving Code(s): N17.9 - ACUTE KIDNEY FAILURE, UNSPECIFIED (4) Type 2 diabetes mellitus with other diabetic kidney complication Assessment/Plan: on insulin bgm noted Code(s): E11.29 - TYPE 2 DIABETES MELLITUS W OTH DIABETIC KIDNEY COMPLICATION DC HOME AND FOLLOW UP CLOSELY OUTPATIENT--D/W PT Condition: Stable - Instructions Diet, Activity, Other Instructions: blood test with dr guy once liver enzymes better--check if can resume lipitor Referrals: Darren Guy [Primary Care Provider] - 1 Week Disposition: VNS/HOME HEALTH CARE - Home Medications Comprehensive Discharge Medication List: Ambulatory Orders Atorvastatin Calcium 40 mg PO HS 08/10/16 Amlodipine Besylate 5 mg PO DAILY 01/01/17 Aspirin [ASA -] 81 mg PO DAILY 01/01/17 Insulin Aspart [Novolog Flexpen] 12 units SQ TID 01/01/17 Insulin Degludec [Tresiba Flextouch U-100] 45 units SQ HS 01/01/17 Metoprolol Succinate [Toprol XL -] 25 mg PO DAILY 01/01/17 Tamsulosin HCl [Flomax -] 0.4 mg PO DAILY 01/01/17 Amino Acids/Protein Hydrolys [Prosource No Carb Liquid Pkt] 30 ml PO BID@0800, 1730 packet 07/20/17 Ascorbic Acid [Vitamin C -] 500 mg PO DAILY tablet 07/20/17 Aspirin Coated [Ecotrin -] 81 mg PO DAILY tablet.ec 07/20/17 Collagenase Clostridium Hist. [Santyl -] 1 applic TP DAILY tube 07/20/17 Multivitamins [Multivit ([facility] Formulary)] 1 tab PO DAILY tab 07/20/17
[2017-07-20] MEDS: METOPROLOL SUCCINATE 25 MG TAB.SR.24H (FP) PO SCH (09:27)
[2017-07-20] MEDS: ASCORBIC ACID 500 MG TABLET (FP) PO SCH (09:27)
[2017-07-20] MEDS: MULTIVITAMINS (DAILY MVI) TABLET (FP) PO SCH (09:27)
[2017-07-20] MEDS: HEPARIN NA (PORCINE) 5,000 UNITS/ML 1ML VIAL SQ SCH (09:27)
[2017-07-20] MEDS: COLLAGENASE CLOSTRIDIUM HIST. 30 GRAMS TUBE TP SCH (09:27)
[2017-07-20] MEDS: amLODIPine BESYLATE 5 MG TABLET (FP) PO SCH (09:27)
[2017-07-20] MEDS: ASPIRIN COATED 81 MG TABLET.EC PO SCH (09:27)
[2017-07-20 10:41] VITALS: BP 143/82; PULSE 80; TEMP 97.4
== END 2017-07-20 10:52 | disposition home health service (06) | DRG 683 ==
LOC: JER 10:54 → JERBED 14:52 → J4W 07-09 00:30 → J5S 07-11 15:48 → J7W 07-13 16:01
PROVIDERS: ADMIT Family Medicine; ATTEND Family Medicine
DX: N17.9 Acute kidney failure, unspecified (principal); M62.82 Rhabdomyolysis; L97.829 Non-pressure chronic ulcer of other part of left lower leg with unspecified severity; L97.819 Non-pressure chronic ulcer of other part of right lower leg with unspecified severity; I12.9 Hypertensive chronic kidney disease with stage 1 through stage 4 chronic kidney disease, or unspecified chronic kidney disease; E11.22 Type 2 diabetes mellitus with diabetic chronic kidney disease; N18.3 Chronic kidney disease, stage 3 (moderate); Z79.4 Long term (current) 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; E78.5 Hyperlipidemia, unspecified; C61 Malignant neoplasm of prostate; Z89.432 Acquired absence of left foot; Z89.421 Acquired absence of other right toe(s); Z87.891 Personal history of nicotine dependence; I73.9 Peripheral vascular disease, unspecified; E86.0 Dehydration; Z74.01 Bed confinement status; M19.90 Unspecified osteoarthritis, unspecified site; E11.65 Type 2 diabetes mellitus with hyperglycemia; E66.9 Obesity, unspecified; Z68.27 Body mass index [BMI] 27.0-27.9, adult; K71.6 Toxic liver disease with hepatitis, not elsewhere classified; E86.9 Volume depletion, unspecified; B95.2 Enterococcus as the cause of diseases classified elsewhere; D63.8 Anemia in other chronic diseases classified elsewhere; E87.6 Hypokalemia
CPT/HCPCS: 11042; 11045; 36415; 71045-TC; 76700-TC; 76775-TC; 80048; 80053; 80061; 80074; 80076; 81003; 81015; 82009; 82248; 82550; 82553; 82570; 82607; 82728; 82746; 82803; 82962; 82977; 83036; 83516; 83520; 83540; 83550; 83690; 83721; 83874; 84300; 84439; 84443; 84484; 85025; 85027; 85610; 85651; 85730; 86225; 86256; 86704; 86706; 86708; 87040; 87070; 87086; 87186; 87205; 87340; 87389; 87804; 93005; 93010; 94010; 97116-GP; 97161-GP; 99285-25; J1644

== ENCOUNTER 2017-11-08 14:08 | Inpatient (IN) | payer OTHER ==
[2017-11-08 16:01] LABS: BASO % 0.6 % (0-2.0); EOS % 2.5 % (0-4.5); HEMATOCRIT 34.1 % (35.4-49); HEMOGLOBIN 11.3 GM/dL (11.7-16.9); LYMPH % 11.1 % (8-40); MCH 25.9 pg (25.7-33.7); MCHC 33.2 g/dl (32.0-35.9); MEAN PLT VOLUME 8.4 fl (7.5-11.1); MONO % 5.1 % (3.8-10.2); NEUT % 80.7 % (42.8-82.8); PLATELET COUNT 304 K/MM3 (134-434); RBC 4.38 M/mm3 (4.00-5.60); WHITE BLOOD COUNT 11.8 K/mm3 (4.0-10.0)
[2017-11-08 16:28] LABS: ALBUMIN 3.6 g/dl (3.4-5.0); ANION GAP 9 (8-16); BILIRUBIN,TOTAL 0.5 mg/dL (0.2-1.0); BLOOD UREA NITROGEN 32 mg/dL (7-18); CALCIUM 9.2 mg/dL (8.5-10.1); CHLORIDE 103 mmol/L (98-107); CO2 26 mmol/L (21-32); CREATININE 1.7 mg/dL (0.7-1.3); GLUCOSE,RANDOM 211 mg/dL (74-106); POTASSIUM 4.3 mmol/L (3.5-5.1); SGPT/ALT 16 U/L (12-78); SODIUM 138 mmol/L (136-145); TOT PROT 7.9 g/dl (6.4-8.2)
[2017-11-08 16:29] LABS: ALK PHOS 155 U/L (45-117); SGOT/AST 9 U/L (15-37)
[2017-11-08 16:30] LABS: INR 1.11 (0.82-1.09); PROTHROMBIN TIME (PATIENT) 12.5 SEC (9.7-13.0)
--- NOTE | 2017-11-08 17:06 | EKG ---
Test Reason : Blood Pressure : / mmHG Vent. Rate : 100 BPM Atrial Rate : 100 BPM P-R Int : 160 ms QRS Dur : 092 ms QT Int : 366 ms P-R-T Axes : 027 -36 046 degrees QTc Int : 472 ms NORMAL SINUS RHYTHM LEFT AXIS DEVIATION ABNORMAL ECG WHEN COMPARED WITH ECG OF 08-SEP-2017 20:16, NO SIGNIFICANT CHANGE WAS FOUND Confirmed by MD CRISTINA, MARCOS ([id number]) on 11/08/2017 5:06:34 PM Referred By: Confirmed By:MARCOS EVANS MD
--- NOTE | 2017-11-08 17:48 | PDOC ---
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 As per Dr. Jacob patient was seen in wound care today was concerning for wound involving the bone/osteomyelitis and so was sent here for admission to have a part" of his right third digit tomorrow. He states his BGM this morning was 124 and denies any fever or chills. Timing/Duration: constant, getting worse Severity: mild Associated Symptoms: reports: denies symptoms Past History - Travel Traveled outside of the country in the last 30 days: No - Past Medical History Allergies/Adverse Reactions: Allergies Allergy/AdvReac Type Severity Reaction Status Date / Time piperacillin [From Zosyn] Allergy Verified 11/08/17 14:16 tazobactam [From Zosyn] Allergy Verified 11/08/17 14:16 Home Medications: Ambulatory Orders Atorvastatin Calcium 40 mg PO HS 08/10/16 Insulin Aspart [Novolog Flexpen] 22 units SQ TID 01/01/17 Insulin Degludec [Tresiba Flextouch U-100] 56 units SQ HS 01/01/17 Tamsulosin HCl [Flomax -] 0.4 mg PO DAILY 01/01/17 Aspirin Coated [Ecotrin -] 81 mg PO DAILY tablet.ec 07/20/17 Multivitamins [Multivit ([facility] Formulary)] 1 tab PO DAILY tab 07/20/17 Pantoprazole Sodium 40 mg PO DAILY 09/05/17 Metoprolol Tartrate 25 mg PO TID 11/08/17 Clindamycin [Cleocin -] 300 mg PO TID #21 capsule 11/16/17 Clopidogrel Bisulfate [Plavix -] 75 mg PO DAILY #30 tablet 11/16/17 Levofloxacin [Levaquin] 500 mg PO DAILY #7 tablet 11/16/17 oxyCODONE HCL [Roxicodone -] 5 mg PO Q4H PRN #30 tablet MDD 6 11/16/17 Anemia: No Asthma: No Cancer: Yes (Prostate (s/p seed implants July 02, 2016)) Cardiac Disorders: No CVA: No COPD: No CHF: No Dementia: No Diabetes: Yes (IDDM, diabetic foot ulcers) GI Disorders: No Disorders: No HTN: Yes Hypercholesterolemia: Yes Liver Disease: No Seizures: No Thyroid Disease: No - Surgical History Abdominal Surgery: No Appendectomy: No Cardiac Surgery: No Cholecystectomy: No GI Surgery: Yes (PROSTATE RADIATION SEED PLACEMENT) Lung Surgery: No Neurologic Surgery: No Orthopedic Surgery: Yes (left foot metatarsal amp, right toe ampsx2, left leg stent) - Suicide/Smoking/Psychosocial Hx Smoking Status: Yes (quit smoking 9 days ago) Smoking History: Former smoker Have you smoked in the past 12 months: No Number of Cigarettes Smoked Daily: 15 If you are a former smoker, when did you quit?: 2012 Information on smoking cessation initiated: No 'Breaking Loose' booklet given: 04/04/13 Hx Alcohol Use: No Drug/Substance Use Hx: No Substance Use Type: None Hx Substance Use Treatment: No Patient Lives Alone: Yes Lives with/in: lives alone Review of Systems - Review of Systems Able to Perform ROS?: No Constitutional: No: Symptoms Reported HEENTM: No: Symptoms Reported Respiratory: No: Symptoms reported Cardiac (ROS): No: Symptoms Reported ABD/GI: No: Symptoms Reported : No: Symptoms Reported Integumentary: Yes: See HPI Neurological: No: Symptoms reported Endocrine: No: Symptoms Reported Hematologic/Lymphatic: No: Symptoms Reported *Physical Exam - Vital Signs Last Vital Signs Temp Pulse Resp BP Pulse Ox 98.6 F 102 H 19 111/72 97 11/08/17 14:16 11/08/17 14:16 11/08/17 14:16 11/08/17 14:16 11/08/17 14:16 - Physical Exam General Appearance: Yes: Nourished, Appropriately Dressed. No: Apparent Distress HEENT: negative: Pale Conjunctivae Neck: positive: Supple Respiratory/Chest: positive: Lungs Clear, Normal Breath Sounds. negative: Respiratory Distress, Accessory Muscle Use Cardiovascular: positive: Regular Rhythm, Tachycardia. negative: Murmur Gastrointestinal/Abdominal: positive: Soft. negative: Tenderness Extremity: positive: Normal Range of Motion, Other (0.5 x 0.7 5.3 the dorsal aspect of right third digit with exposed bone noted. No discharge, fluctuance, or odor noted. Surrounding skin intact.) Integumentary: positive: Dry Neurologic: positive: Motor Strength 5/5 (ambulatory) Heart Score/ECG Review - ECG Intrepretation Rhythm: Regular Rhythm (rate 100. normal sinus rhythm. Left axis deviation) ED Treatment Course - LABORATORY CBC & Chemistry Diagram: 11/14/17 07:02 11/14/17 06:15 - ADDITIONAL ORDERS Additional order review: Laboratory Results 11/08/17 11/08/17 15:42 15:42 PT with INR 12.50 INR 1.11 Sodium 138 Potassium 4.3 Chloride 103 Carbon Dioxide 26 Anion Gap 9 BUN 32 H Creatinine 1.7 H D Creat Clearance w eGFR 41.46 Random Glucose 211 H Calcium 9.2 Total Bilirubin 0.5 AST 9 L D ALT 16 D Alkaline Phosphatase 155 H Total Protein 7.9 Albumin 3.6 11/08/17 15:42 RBC 4.38 MCV 78.0 L MCHC 33.2 RDW 14.0 D MPV 8.4 Neutrophils % 80.7 Lymphocytes % 11.1 D Monocytes % 5.1 Eosinophils % 2.5 Basophils % 0.6 - RADIOLOGY Radiology Studies Ordered: Category Date Time Status CHEST X-RAY PORTABLE* [RAD] Stat Radiology 11/08/17 14:38 Completed TOE(S) RIGHT [RAD] Stat Radiology 11/08/17 15:39 Completed Medical Decision Making - Medical Decision Making 11/08/17 16:52 Pt with diabetic foot ulcer to the left third digit concerning for bone involvement. Patient scheduled for a metatarsal amputation tomorrow. Case discussed with Dr. Nagy her who was requesting Dr. Villanueva infectious disease doctor and a toe x-ray. question if antibiotics are needed at this time and he states no based on patient's labs and clinical presentation today. 11/08/17 17:53 Laboratory Tests 11/08/17 11/08/17 11/08/17 15:42 15:42 15:42 WBC 11.8 H D Hgb 11.3 L Hct 34.1 L Neutrophils % 80.7 PT with INR 12.50 INR 1.11 Sodium 138 Potassium 4.3 Chloride 103 Carbon Dioxide 26 Anion Gap 9 BUN 32 H Creatinine 1.7 H D Creat Clearance w eGFR 41.46 Total Bilirubin 0.5 AST 9 L D ALT 16 D Alkaline Phosphatase 155 H x-ray shows no signs of osteomyelitis. Case discussed with hospitalist and will admit to [facility]. Patient is to be nothing by mouth after midnight as per Dr. Jacob *DC/Admit/Observation/Transfer Diagnosis at time of Disposition: Diabetic foot ulcer - Discharge Dispostion Disposition: HOME Condition at time of disposition: Good Decision to Admit order: Yes - Prescriptions - Referrals - Patient Instructions - Post Discharge Activity
--- NOTE | 2017-11-08 18:35 | HP ---
CHIEF COMPLAINT: right foot, third toe amputation PCP: Dr. Le HISTORY OF PRESENT ILLNESS: This is a 57 year old male with PMHx DM, CKD, HTN, hyperlipidemia who was sent to the ED by his metal bonding press operator, Dr. Byrd, for a right foot third toe partial amputation. The patient reports he has had multiple toe amputations in the past and has been following with Dr. Byrd in clinic for 6 years. The patient denies any fever or chills, chest pain, palpitations, nausea, vomiting, diarrhea , abdominal pain, dizziness, syncope, headache, urinary symptoms. ER course was notable for: (1) WBC 11.8 (2) Cr 1.7 (3) Chest X-ray with no acute disease (4) Right foot x-ray with no fracture or osteomyelitis Recent Travel: denies PAST MEDICAL HISTORY: as above PAST SURGICAL HISTORY: as above Social History: Smoking: quit 2012 Alcohol: quit 2012 Drugs: denies Family History: Allergies piperacillin [From Zosyn] Allergy (Verified 11/08/17 14:16) tazobactam [From Zosyn] Allergy (Verified 11/08/17 14:16) HOME MEDICATIONS: Home Medications Medication Instructions Recorded Atorvastatin Calcium 40 mg PO HS 08/10/16 Insulin Aspart [Novolog Flexpen] 22 units SQ TID 01/01/17 Insulin Degludec [Tresiba 56 units SQ HS 01/01/17 Flextouch U-100] Tamsulosin HCl [Flomax -] 0.4 mg PO DAILY 01/01/17 Aspirin Coated [Ecotrin -] 81 mg PO DAILY tablet.ec 07/20/17 Multivitamins [Multivit ([facility] 1 tab PO DAILY tab 07/20/17 Formulary)] Pantoprazole Sodium 40 mg PO DAILY 09/05/17 Metoprolol Tartrate 25 mg PO TID 11/08/17 REVIEW OF SYSTEMS CONSTITUTIONAL: Absent: fever, chills, diaphoresis, generalized weakness, malaise, loss of appetite, weight change HEENT: Absent: rhinorrhea, nasal congestion, throat pain, throat swelling, difficulty swallowing, mouth swelling, ear pain, eye pain, visual changes CARDIOVASCULAR: Absent: chest pain, syncope, palpitations, irregular heart rate, lightheadedness , peripheral edema RESPIRATORY: Absent: cough, shortness of breath, dyspnea with exertion, orthopnea, wheezing, stridor, hemoptysis GASTROINTESTINAL: Absent: abdominal pain, abdominal distension, nausea, vomiting, diarrhea, constipation, melena, hematochezia GENITOURINARY: Absent: dysuria, frequency, urgency, hesitancy, hematuria, flank pain, genital pain MUSCULOSKELETAL: Absent: myalgia, arthralgia, joint swelling, back pain, neck pain SKIN: Right foot, 3rd toe non-healing diabetic ulcer requiring partial amputation Absent: rash, itching, pallor HEMATOLOGIC/IMMUNOLOGIC: Absent: easy bleeding, easy bruising, lymphadenopathy ENDOCRINE: Absent: unexplained weight gain, unexplained weight loss, heat intolerance, cold intolerance NEUROLOGIC: Absent: headache, focal weakness or paresthesias, dizziness, unsteady gait, seizure, mental status changes, bladder or bowel incontinence PSYCHIATRIC: Absent: anxiety, depression, suicidal or homicidal ideation, hallucinations. PHYSICAL EXAMINATION Vital Signs - 24 hr 11/08/17 14:16 Temperature 98.6 F Pulse Rate 102 H Respiratory 19 Rate Blood Pressure 111/72 O2 Sat by Pulse 97 Oximetry (%) GENERAL: Awake, alert, and fully oriented, in no acute distress. HEAD: Normal with no signs of trauma. EYES: Pupils equal, round and reactive to light, extraocular movements intact, sclera anicteric, conjunctiva clear. No lid lag. EARS, NOSE, THROAT: Ears normal, nares patent, oropharynx clear without exudates. Moist mucous membranes. NECK: Normal range of motion LUNGS: Breath sounds equal, clear to auscultation bilaterally. No wheezes, and no crackles. No accessory muscle use. HEART: Regular rate and rhythm, normal S1 and S2 ABDOMEN: Soft, nontender, not distended, normoactive bowel sounds, no guarding, no rebound, no masses. MUSCULOSKELETAL: B/l foot dressings (patient refused to have them undressed) UPPER EXTREMITIES: 2+ pulses, warm, well-perfused. No cyanosis. No clubbing. No peripheral edema. LOWER EXTREMITIES: 2+ pulses, warm, well-perfused. No calf tenderness. No peripheral edema. NEUROLOGICAL: Cranial nerves II-XII intact. Normal speech. Gait not observed PSYCHIATRIC: Cooperative. Good eye contact. Appropriate mood and affect. SKIN: Warm, dry, normal turgor, no rashes or lesions noted, normal capillary refill. Laboratory Results - last 24 hr 11/08/17 11/08/17 11/08/17 15:42 15:42 15:42 WBC 11.8 H D RBC 4.38 Hgb 11.3 L Hct 34.1 L MCV 78.0 L MCH 25.9 MCHC 33.2 RDW 14.0 D Plt Count 304 D MPV 8.4 Neutrophils % 80.7 Lymphocytes % 11.1 D Monocytes % 5.1 Eosinophils % 2.5 Basophils % 0.6 PT with INR 12.50 INR 1.11 Sodium 138 Potassium 4.3 Chloride 103 Carbon Dioxide 26 Anion Gap 9 BUN 32 H Creatinine 1.7 H D Creat Clearance w eGFR 41.46 Random Glucose 211 H Calcium 9.2 Total Bilirubin 0.5 AST 9 L D ALT 16 D Alkaline Phosphatase 155 H Total Protein 7.9 Albumin 3.6 Assessment: This is a 57 year old male with PMHx DM, CKD, HTN, hyperlipidemia who was sent to the ED by his metal bonding press operator, Dr. Byrd, for a right foot third toe partial amputation. Plan: 1) Right foot, 3rd toe partial amputation - Scheduled for tomorrow? NPO after midnight - Possible osteo - Elevated WBC, per podiatry conversation with ED GENERATION TECHNICIAN, will hold off on antibiotics for now until after amputation - F/u blood cultures - F/u ID consult 2) IDDM - As the patient will be NPO after midnight, and the patient has uncontrolled DM , will give half dose of Levemir tonight. Monitor BGM - Levemir 13u sq tonight. Once on a diet, can resume Levemir 27u sq bid - BGM ACHS - ISS ACHS 3) HTN - Continue Norvasc 5mg po daily 4) Hyperlipidemia - Continue Lipitor 5) BPH - Continue Flomax 6) F/E/N: - Monitor electrolytes - Diabetic/sodium controlled diet - NPO after midnight 7) Prophylaxis: - Hold all chemical DVT prophylaxis 2/2 possible surgical procedure tomorrow 8) Dispo: - Requires continued inpatient care CODE STATUS: FULL CODE Visit type - Emergency Visit Emergency Visit: Yes Care time: The patient presented to the Emergency Department on the above date and was hospitalized for further evaluation of their emergent condition. - New Patient This patient is new to me today: Yes Date on this admission: 11/08/17 - Critical Care Critical Care patient: No Hospitalist Screening - Colonoscopy Questionnaire Colonoscopy Questionnaire: Colonoscopy Questionnaire - Patient: 50 - 75 years old and never had a screening colonoscopy: Unknown History of colon or rectal polyps, or CA: Unknown History of IBD, Crohn's disease or UC: Unknown History of abdominal radiation therapy as a child: Unknown - Relative: 1 with colon or rectal CA, or polyps at age 60 or younger: Unknown Colon or rectal CA diagnosed at age 45 or younger: Unknown Multiple relatives with colon or rectal CA: Unknown - Outcome: Screening Result: Negative Screen
[2017-11-08 18:49] LABS: URINE APPEARANCE CLEAR; URINE BILIRUBIN NEGATIVE (<2.0 mg/dL); URINE COLOR LTYELLOW; URINE GLUCOSE (UA) 2+ (NEGATIVE); URINE KETONE NEGATIVE (NEGATIVE); URINE LEUK ESTERASE NEGATIVE (NEGATIVE); URINE NITRITE NEGATIVE (NEGATIVE); URINE UROBILINOGEN NEGATIVE mg/dL (0.2-1.0)
[2017-11-08 19:15] LABS: URINE PROTEIN 1+ (NEGATIVE)
[2017-11-08 19:23] LABS: EPI CELLS RARE /HPF (FEW); URINE HYALINE CAST 4 /lpf; URINE MUCUS RARE
[2017-11-08] MEDS ORDERED: INSULIN (LEVEMIR) 100 UNITS/ML UNITS SQ SCH (22:00)
[2017-11-08] MEDS ORDERED: INSULIN ASPART 22 UNIT SQ SCH (22:00)
[2017-11-08] MEDS ORDERED: METOPROLOL TARTRATE 25 MG TABLET (FP) PO SCH (22:00)
[2017-11-08] MEDS ORDERED: INSULIN DEGLUDEC SQ SCH (22:00)
[2017-11-08] MEDS: ATORVASTATIN CA 40 MG TABLET (FP) PO SCH (22:31)
[2017-11-08] MEDS ORDERED: ATORVASTATIN CA 40 MG TABLET (FP) ONE (22:55)
[2017-11-08] MEDS ORDERED: INSULIN (LEVEMIR) 100 UNITS/ML UNITS SQ ONE (22:55)
[2017-11-09 00:03] LABS: CALCIUM 7.2 mg/dL (8.5-10.1); CO2 22 mmol/L (21-32); CREATININE 1.1 mg/dL (0.7-1.3); GLUCOSE,RANDOM 132 mg/dL (74-106)
[2017-11-09 00:05] LABS: ANION GAP 8 (8-16); BLOOD UREA NITROGEN 16 mg/dL (7-18); CHLORIDE 108 mmol/L (98-107); POTASSIUM 3.5 mmol/L (3.5-5.1); SODIUM 138 mmol/L (136-145)
[2017-11-09] MEDS: INSULIN SLIDING SCALE (NOVOLOG) 1 VIAL SQ SCH ×5 (01:20→21:57)
[2017-11-09 02:35] VITALS: BMI 28.5
[2017-11-09 07:03] LABS: HEMATOCRIT 32.6 % (35.4-49); HEMOGLOBIN 11.3 GM/dL (11.7-16.9); MCHC 34.7 g/dl (32.0-35.9); MEAN CELL VOLUME 77.9 fl (80-96); MEAN PLT VOLUME 8.4 fl (7.5-11.1); PLATELET COUNT 277 K/MM3 (134-434); RBC 4.19 M/mm3 (4.00-5.60); WHITE BLOOD COUNT 9.4 K/mm3 (4.0-10.0)
[2017-11-09 07:28] LABS: CHLORIDE 104 mmol/L (98-107); POTASSIUM 4.4 mmol/L (3.5-5.1); SODIUM 137 mmol/L (136-145)
[2017-11-09 08:00] LABS: ALBUMIN 3.5 g/dl (3.4-5.0); ALK PHOS 163 U/L (45-117); ANION GAP 11 (8-16); BILIRUBIN,TOTAL 0.5 mg/dL (0.2-1.0); BLOOD UREA NITROGEN 32 mg/dL (7-18); CALCIUM 9.2 mg/dL (8.5-10.1); CO2 22 mmol/L (21-32); CREATININE 1.6 mg/dL (0.7-1.3); SGOT/AST 11 U/L (15-37); SGPT/ALT 16 U/L (12-78); TOT PROT 7.8 g/dl (6.4-8.2)
[2017-11-09 08:09] LABS: GLUCOSE,RANDOM 367 mg/dL (74-106)
--- NOTE | 2017-11-09 08:36 | PN ---
Progress Note, Physician - Current Medication List Current Medications: Active Medications Amlodipine Besylate (Norvasc -) 5 mg PO DAILY ON LICENSE OF [facility] Atorvastatin Calcium (Lipitor -) 40 mg PO HS ON LICENSE OF [facility] Last Admin: 11/08/17 22:31 Dose: 40 mg Levofloxacin (Levaquin 500 Mg Premixed Ivpb -) 500 mg in 100 mls @ 100 mls/hr IVPB ONCE ONE PRN Reason: Protocol Stop: 11/09/17 09:34 Insulin Aspart (Novolog Vial Sliding Scale -) 1 vial SQ ACHS ON LICENSE OF [facility] PRN Reason: Protocol Last Admin: 11/09/17 01:20 Dose: Not Given Multivitamins/Minerals/Vitamin C (Tab-A-Vit -) 1 tab PO DAILY ON LICENSE OF [facility] Pantoprazole Sodium (Protonix -) 40 mg PO DAILY LISBETH Tamsulosin HCl (Flomax -) 0.4 mg PO DAILY@0830 ON LICENSE OF [facility] - Objective Vital Signs: Vital Signs Temperature 97.3 F L 11/09/17 06:00 Pulse Rate 72 11/09/17 06:00 Respiratory Rate 20 11/09/17 06:00 Blood Pressure 144/93 11/09/17 06:00 O2 Sat by Pulse Oximetry (%) 99 11/09/17 01:15 Labs: CBC, BMP 11/09/17 06:40 11/09/17 06:40 INR, PTT INR 1.11 (0.82-1.09) 11/08/17 15:42 Problem List - Problems (1) Diabetic foot ulcer Assessment/Plan: -Right foot, 3rd toe partial amputation - Scheduled for tomorrow- NPO after midnight - Possible osteo - Elevated WBC, per podiatry conversation with ED SALES SYSTEMS ENGINEER, will hold off on antibiotics for now until after amputation - F/u blood cultures - F/u ID consult Code(s): E11.621 - TYPE 2 DIABETES MELLITUS WITH FOOT ULCER; L97.509 - NON- PRESSURE CHRONIC ULCER OTH PRT UNSP FOOT W UNSP SEVERITY (2) Anemia Assessment/Plan: -Monitor Code(s): D64.9 - ANEMIA, UNSPECIFIED (3) Chronic kidney disease (CKD) Assessment/Plan: - Monitor electrolytes - Diabetic/sodium controlled diet Code(s): N18.9 - CHRONIC KIDNEY DISEASE, UNSPECIFIED Qualifiers: Chronic kidney disease stage: stage 3 (moderate) Qualified Code(s): N18.3 - Chronic kidney disease, stage 3 (moderate) (4) Diabetes mellitus Assessment/Plan: - the patient has uncontrolled DM, will give Levemir tonight. Monitor BGM - BGM ACHS - ISS ACHS - Endo Code(s): E11.9 - TYPE 2 DIABETES MELLITUS WITHOUT COMPLICATIONS Qualifiers: Diabetes mellitus type: type 1 Diabetes mellitus complication status: with unspecified complications Qualified Code(s): E10.8 - Type 1 diabetes mellitus with unspecified complications (5) Foot ulcer Code(s): L97.509 - NON-PRESSURE CHRONIC ULCER OTH PRT UNSP FOOT W UNSP SEVERITY Qualifiers: Laterality: right Non-pressure ulcer stage: with fat layer exposed Qualified Code(s): L97.512 - Non-pressure chronic ulcer of other part of right foot with fat layer exposed (6) HTN (hypertension) Code(s): I10 - ESSENTIAL (PRIMARY) HYPERTENSION Qualifiers:
[2017-11-09] MEDS: TAMSULOSIN HCL 0.4 MG CAP.ER.24H (FP) PO SCH (08:41)
[2017-11-09] MEDS: amLODIPine BESYLATE 5 MG TABLET (FP) PO SCH (09:53)
[2017-11-09] MEDS: PANTOPRAZOLE 40 MG TABLET (FP) PO SCH ×2 (09:54)
[2017-11-09] MEDS: MULTIVITAMINS (DAILY MVI) TABLET (FP) PO SCH (09:54)
[2017-11-09] MEDS ORDERED: SODIUM CHLORIDE IVPB ONE (10:00)
[2017-11-09] MEDS ORDERED: LEVOFLOXACIN IVPB ONE (10:00)
--- NOTE | 2017-11-09 12:17 | PN ---
Progress Note (short form) - Note Progress Note: ID Consult dictated Cellulitis/ osteomyelitis R 3rd toe ? zosyn allergy Azotemia Await c/s Empiric vancomycin/ cefepime
[2017-11-09] MEDS ORDERED: CEFEPIME HCL/D5W 1 GM/50 ML BAG IVPB SCH (12:30)
[2017-11-09] MEDS ORDERED: VANCOMYCIN 1 GM PREMIX - 1 GM/200 ML BAG IVPB SCH (13:00)
--- NOTE | 2017-11-09 13:31 | CONS ---
DATE OF CONSULTATION: DATE OF DICTATION: 11/09/2017 HISTORY OF PRESENT ILLNESS: The patient is a 57-year-old diabetic male who was evaluated for cellulitis and osteomyelitis of the right 3rd toe. The patient states that he had been sustaining trauma to the right 3rd toe after his toe began to rub against a foreign body. He reports subsequently developing worsening erythema and swelling of the right 3rd toe. [facility] where he was evaluated by Dr. Byrd. He was found to have erythema and swelling of the right 3rd toe as well exposed bone. He is now scheduled for partial amputation of that toe. He denies any associated fever or chills. He did not notice bloody drainage from the distal aspect of the toe. PAST MEDICAL HISTORY: Positive for longstanding diabetes mellitus with recurrent diabetic foot infections, hypertension, prostate cancer, hyperlipidemia, chronic kidney disease. ALLERGIES: To ZOSYN. Patient had developed a near syncopal episode after taking ZOSYN on a recent admission. MEDICATIONS: Lipitor, insulin, Flomax, Ecotrin, Protonix, metoprolol. SOCIAL HISTORY: Former smoker. Multiple recent hospitalizations for foot infections. SYSTEMS REVIEW: Cardiac: No chest pain or palpitations. Respiratory: Negative for cough or sputum production. Gastrointestinal: Negative for vomiting or diarrhea. Genitourinary: Negative for urinary tract infection. LABORATORY DATA: White count 9.4, hematocrit 32.6, platelet count 277. BUN 32, creatinine 1.6, glucose 367. Urinalysis 1 white cell. Blood cultures are pending. Wound cultures have grown pseudomonas and MRSA. PHYSICAL EXAMINATION: General: He is awake and alert. He is chronically ill- appearing, in no acute distress. Vital signs: Temperature 98.6, blood pressure 134/79, pulse 76 and regular, respirations 19 per minute. HEENT: Sclerae anicteric. Heart: Heart sounds S1, S2. Lungs: Clear. Abdomen: Soft. No tenderness elicited. No mass, rebound, or rigidity. Extremities: Examination of the right foot, he is status post amputation of the right 5th toe. There is a superficial ulceration present over the plantar aspect of the right foot. No purulent drainage or foul odor noted. His right 3rd toe is diffusely swollen and erythematous extending to the base of the toe and distal aspect of the foot. No purulent drainage noted. IMPRESSION: 1. Cellulitis/osteomyelitis of the right 3rd toe. 2. Possible sepsis secondary to foot infection. 3. ZOSYN allergy. 4. Azotemia. 5. History of methicillin-resistant staphylococcus aureus and pseudomonas. Pending cultures, empiric antibiotic coverage with vancomycin and cefepime in this patient who had a bad reaction to ZOSYN. Patient is for partial amputation of the right 3rd toe. Continue local wound care. Further recommendations pending cultures. Thank you for the kind referral. JOANNA VARGHESE M.D. [id number]
[2017-11-09] MEDS: VANCOMYCIN 1,000 MG in SODIUM CHLORIDE 250 ML IVPB SCH (13:49)
[2017-11-09] MEDS: HEPARIN NA (PORCINE) 5,000 UNITS/ML 1ML VIAL SQ SCH ×2 (13:51→21:57)
--- NOTE | 2017-11-09 14:49 | CON.CARD ---
Consult Consult Specialty:: Cardiology Referred by:: Osmani Reason for Consultation:: preop evaluation. - History of Present Illness Chief Complaint: admitted for amputation History of Present Illness: The patient is a 56-year-old obese man, with a history of diabetes, hypertension , hyperlipidemia, prostate cancer, status post seeding, peripheral vascular disease, bilateral toe amputations, admitted exposed bone awaiting toe amputation, and angioplasty. 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 vascular stent left leg) - Alcohol/Substance Use Hx Alcohol Use: No History of Substance Use: reports: Marijuana (in past) - Smoking History Smoking history: Former smoker Have you smoked in the past 12 months: No Aproximately how many cigarettes per day: 15 If you are a former smoker, when did you quit?: 2012 - Social History Usual Living Arrangement: Other (with family) ADL: Independent Occupation: Former [employer] History of Recent Travel: No Home Medications - Allergies Allergies/Adverse Reactions: Allergies Allergy/AdvReac Type Severity Reaction Status Date / Time piperacillin [From Zosyn] Allergy Verified 11/08/17 14:16 tazobactam [From Zosyn] Allergy Verified 11/08/17 14:16 - Home Medications Home Medications: Ambulatory Orders Atorvastatin Calcium 40 mg PO HS 08/10/16 Insulin Aspart [Novolog Flexpen] 22 units SQ TID 01/01/17 Insulin Degludec [Tresiba Flextouch U-100] 56 units SQ HS 01/01/17 Tamsulosin HCl [Flomax -] 0.4 mg PO DAILY 01/01/17 Aspirin Coated [Ecotrin -] 81 mg PO DAILY tablet.ec 07/20/17 Multivitamins [Multivit ([facility])] 1 tab PO DAILY tab 07/20/17 Pantoprazole Sodium 40 mg PO DAILY 09/05/17 Metoprolol Tartrate 25 mg PO TID 11/08/17 Family Disease History - Family Disease History Family Disease History: Diabetes: Father (: unclear causes), Other: Mother ( Alive: healthy. ? dementia), Brother (1, healthy, 1 : suicide), Sister (1, alive: BCA) Review of Systems - Review of Systems Constitutional: reports: No Symptoms Eyes: reports: No Symptoms HENT: reports: No Symptoms Neck: reports: No Symptoms Cardiovascular: reports: No Symptoms Respiratory: reports: No Symptoms Vital Signs: Vital Signs Temperature 98.6 F 11/09/17 09:42 Pulse Rate 76 11/09/17 09:42 Respiratory Rate 20 11/09/17 09:42 Blood Pressure 134/79 11/09/17 09:42 O2 Sat by Pulse Oximetry (%) 98 11/09/17 09:00 Constitutional: Yes: No Distress, Calm Eyes: Yes: EOM Intact HENT: Yes: Atraumatic, Normocephalic Neck: Yes: Supple, Trachea Midline Respiratory: Yes: CTA Bilaterally Gastrointestinal: Yes: Normal Bowel Sounds Cardiovascular: Yes: Regular Rate and Rhythm JVD: No PMI: Non-Displaced Heart Sounds: Yes: S1, S2 Extremities: Yes: Amputation Edema: No Peripheral Pulses WNL: No - Other Data Labs, Other Data: CBC, BMP 11/09/17 06:40 11/09/17 06:40 INR, PTT INR 1.11 (0.82-1.09) 11/08/17 15:42 Imaging - Results EKG: Report Reviewed (nsr lad no sttw changes.) Problem List - Problems (1) Preop cardiovascular exam Assessment/Plan: There are no cardiac contraindications to angiogram/angioplasty, or amputation. These procedures are low risk for periop cardiac events. No need for further preop cardiac testing. Please call us postop for any issues. Code(s): Z01.810 - ENCOUNTER FOR PREPROCEDURAL CARDIOVASCULAR EXAMINATION
[2017-11-09] MEDS ORDERED: PT OWN MED DRAWER 7, Y5N ONE (15:19)
[2017-11-09] MEDS: CEFEPIME 1 GM in SODIUM CHLORIDE 100 ML IVPB SCH ×2 (15:52→17:15)
--- NOTE | 2017-11-09 17:51 | CONSULT ---
Consult Reason for Consultation:: right foot ulcer with bone exposed. Needs toe amputation as per podiatry . - History Source Limitations to Obtaining History: No Limitations - Past Medical History DIRECTOR OF STUDENT SERVICES: Yes: Peripheral Neuropathy, Other (IDDM) Cardio/Vascular: Yes: HTN, Hyperlipdemia, Other (peripheral vascular disease) Renal/: Yes: Renal Inusuff, Cancer (Prostate Cancer s/p seed implantations) Musculoskeletal: Yes: Osteoarthritis Endocrine: Yes: Diabetes Mellitus (Insulin dependent) - Past Surgical History Past Surgical History: Yes: Amputation (lt tma, amputations 2nd and 5th rt toes) , Stent (? vascular stent left leg) - Alcohol/Substance Use Hx Alcohol Use: No History of Substance Use: reports: Marijuana (in past) - Smoking History Smoking history: Former smoker Have you smoked in the past 12 months: No Aproximately how many cigarettes per day: 15 If you are a former smoker, when did you quit?: 2013 - Social History Usual Living Arrangement: Other (with family) ADL: Independent Occupation: Former [employer] History of Recent Travel: No Home Medications - Allergies Allergies/Adverse Reactions: Allergies Allergy/AdvReac Type Severity Reaction Status Date / Time piperacillin [From Zosyn] Allergy Verified 11/08/17 14:16 tazobactam [From Zosyn] Allergy Verified 11/08/17 14:16 - Home Medications Home Medications: Ambulatory Orders Atorvastatin Calcium 40 mg PO HS 08/10/16 Insulin Aspart [Novolog Flexpen] 22 units SQ TID 01/01/17 Insulin Degludec [Tresiba Flextouch U-100] 56 units SQ HS 01/01/17 Tamsulosin HCl [Flomax -] 0.4 mg PO DAILY 01/01/17 Aspirin Coated [Ecotrin -] 81 mg PO DAILY tablet.ec 07/20/17 Multivitamins [Multivit ([facility] Formul[facility])] 1 tab PO DAILY tab 07/20/17 Pantoprazole Sodium 40 mg PO DAILY 09/05/17 Metoprolol Tartrate 25 mg PO TID 11/08/17 Family Disease History - Family Disease History Family Disease History: Diabetes: Father (: unclear causes), Other: Mother ( Alive: healthy. ? dementia), Brother (1, healthy, 1 : suicide), Sister (1, alive: BCA) Review of Systems - Review of Systems Constitutional: reports: No Symptoms Eyes: reports: No Symptoms HENT: reports: No Symptoms Neck: reports: No Symptoms Cardiovascular: reports: No Symptoms Respiratory: reports: No Symptoms Gastrointestinal: reports: No Symptoms Genitourinary: reports: No Symptoms Breasts: reports: No Symptoms Reported Musculoskeletal: reports: No Symptoms Integumentary: reports: No Symptoms Neurological: reports: No Symptoms Endocrine: reports: No Symptoms Hematology/Lymphatic: reports: No Symptoms Psychiatric: reports: No Symptoms Physical Exam Vital Signs: Vital Signs Temperature 98.5 F 11/09/17 16:48 Pulse Rate 83 11/09/17 16:48 Respiratory Rate 20 11/09/17 16:48 Blood Pressure 154/81 11/09/17 16:48 O2 Sat by Pulse Oximetry (%) 98 11/09/17 09:00 Constitutional: Yes: Well Nourished, No Distress, Calm Eyes: Yes: WNL, Conjunctiva Clear, EOM Intact HENT: Yes: WNL, Atraumatic, Normocephalic Neck: Yes: WNL, Supple, Trachea Midline Cardiovascular: Yes: WNL, Regular Rate and Rhythm Respiratory: Yes: WNL, Regular, CTA Bilaterally Gastrointestinal: Yes: WNL, Normal Bowel Sounds ...Rectal Exam: Yes: WNL Renal/: Yes: WNL Breast(s): Yes: WNL Musculoskeletal: Yes: WNL Extremities: Yes: WNL Integumentary: Yes: WNL Neurological: Yes: WNL, Alert, Oriented ...Motor Strength: WNL Psychiatric: Yes: WNL Labs: CBC, BMP 11/09/17 06:40 11/09/17 06:40 Problem List - Problems (1) Diabetic foot ulcer Code(s): E11.621 - TYPE 2 DIABETES MELLITUS WITH FOOT ULCER; L97.509 - NON- PRESSURE CHRONIC ULCER OTH PRT UNSP FOOT W UNSP SEVERITY Assessment/Plan Pt with right foot ulcer with exposed bone. Cleared by cardiology for angiogram. Recent US done last week showed right ext iliac artery stenosis, with right sfa occlusion. Pt needs angiogram -- however pt has elevated Cr to 1.6. PLease hydrate and repeat in am. Will do angiogram on tuesday if possible. Guerrero Nuno DO
[2017-11-09] MEDS ORDERED: CEFEPIME 1 GM in SODIUM CHLORIDE 100 ML IVPB SCH (18:00)
[2017-11-09] MEDS: INSULIN (LEVEMIR) 100 UNITS/ML UNITS SQ SCH (21:56)
[2017-11-09] MEDS: ATORVASTATIN CA 40 MG TABLET (FP) PO SCH (21:58)
[2017-11-10] MEDS: CEFEPIME 1 GM in SODIUM CHLORIDE 100 ML IVPB SCH ×3 (01:51→18:20)
[2017-11-10] MEDS: INSULIN (LEVEMIR) 100 UNITS/ML UNITS SQ SCH ×2 (06:36→21:49)
[2017-11-10] MEDS: INSULIN SLIDING SCALE (NOVOLOG) 1 VIAL SQ SCH ×4 (06:37→21:50)
[2017-11-10] MEDS: HEPARIN NA (PORCINE) 5,000 UNITS/ML 1ML VIAL SQ SCH ×3 (06:39→21:48)
[2017-11-10 07:38] LABS: BASO % 0.7 % (0-2.0); EOS % 5.2 % (0-4.5); HEMATOCRIT 31.4 % (35.4-49); HEMOGLOBIN 10.8 GM/dL (11.7-16.9); LYMPH % 10.3 % (8-40); MCHC 34.4 g/dl (32.0-35.9); MEAN CELL VOLUME 78.5 fl (80-96); MEAN PLT VOLUME 8.9 fl (7.5-11.1); MONO % 5.7 % (3.8-10.2); NEUT % 78.1 % (42.8-82.8); PLATELET COUNT 212 K/MM3 (134-434); RBC 3.99 M/mm3 (4.00-5.60); RDW 13.6 % (11.9-15.9)
[2017-11-10 08:40] LABS: ALBUMIN 3.1 g/dl (3.4-5.0); ALK PHOS 146 U/L (45-117); ANION GAP 12 (8-16); BILIRUBIN,TOTAL 0.5 mg/dL (0.2-1.0); BLOOD UREA NITROGEN 27 mg/dL (7-18); CALCIUM 8.7 mg/dL (8.5-10.1); CHLORIDE 104 mmol/L (98-107); CO2 19 mmol/L (21-32); CREATININE 1.3 mg/dL (0.7-1.3); POTASSIUM 4.4 mmol/L (3.5-5.1); SGOT/AST 12 U/L (15-37); SGPT/ALT 15 U/L (12-78); SODIUM 135 mmol/L (136-145)
[2017-11-10 09:18] LABS: GLUCOSE,RANDOM 317 mg/dL (74-106)
[2017-11-10] MEDS ORDERED: PT OWN MED DRAWER 7, Y5N ONE ×2 (09:38→18:07)
[2017-11-10] MEDS: amLODIPine BESYLATE 5 MG TABLET (FP) PO SCH (09:52)
[2017-11-10] MEDS: MULTIVITAMINS (DAILY MVI) TABLET (FP) PO SCH (09:52)
[2017-11-10] MEDS: TAMSULOSIN HCL 0.4 MG CAP.ER.24H (FP) PO SCH (09:52)
[2017-11-10] MEDS: PANTOPRAZOLE 40 MG TABLET (FP) PO SCH (09:58)
--- NOTE | 2017-11-10 10:22 | PN ---
Progress Note (short form) - Note Progress Note: Vascular surgery Pt's Cr today is 1.3. Booked for RLE angiogram hazel at 3pm. PLease continue to hydrate so that the Cr continues to come down. repeat bmp in am. NPO past midnight. Guerrero Nuno DO Problem List - Problems (1) Diabetic foot ulcer Code(s): E11.621 - TYPE 2 DIABETES MELLITUS WITH FOOT ULCER; L97.509 - NON- PRESSURE CHRONIC ULCER OTH PRT UNSP FOOT W UNSP SEVERITY
--- NOTE | 2017-11-10 10:24 | CONSULT ---
Consult Consult Specialty:: Renal Reason for Consultation:: ARA - History of Present Illness History of Present Illness: 57 yo M h/o DM, ARA, HTN, HLD admitted to the hospital for amputation of the R 3rd toe. His creatinine on admission day 2 increased to 1.6 from 1.1 but today it's 1.3 after receiving normal saline. During last admission in 06/2017, he developed ARA in that Cr peaked agt 5.9 2/2 rhabdomyolysis. He was treated with aggressive fluids and Cr on discharged was 2.0. Denies any urinary or bowel sx, chest pain, sob, cough, n/v. 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 History of Recent Travel: No Home Medications - Allergies Allergies/Adverse Reactions: Allergies Allergy/AdvReac Type Severity Reaction Status Date / Time piperacillin [From Zosyn] Allergy Verified 11/08/17 14:16 tazobactam [From Zosyn] Allergy Verified 11/08/17 14:16 - Home Medications Home Medications: Ambulatory Orders Atorvastatin Calcium 40 mg PO HS 08/10/16 Insulin Aspart [Novolog Flexpen] 22 units SQ TID 01/01/17 Insulin Degludec [Tresiba Flextouch U-100] 56 units SQ HS 01/01/17 Tamsulosin HCl [Flomax -] 0.4 mg PO DAILY 01/01/17 Aspirin Coated [Ecotrin -] 81 mg PO DAILY tablet.ec 07/20/17 Multivitamins [Multivit ([facility] Formul[facility])] 1 tab PO DAILY tab 07/20/17 Pantoprazole Sodium 40 mg PO DAILY 09/05/17 Metoprolol Tartrate 25 mg PO TID 11/08/17 Family Disease History - Family Disease History Family Disease History: Diabetes: Father (: unclear causes), Other: Mother ( Alive: healthy. ? dementia), Brother (1, healthy, 1 : suicide), Sister (1, alive: BCA) Review of Systems - Review of Systems Constitutional: reports: No Symptoms HENT: reports: No Symptoms Neck: reports: No Symptoms Cardiovascular: reports: No Symptoms Respiratory: reports: No Symptoms Gastrointestinal: reports: No Symptoms Genitourinary: reports: No Symptoms Musculoskeletal: reports: Extremity Pain Physical Exam Vital Signs: Vital Signs Temperature 98.3 F 11/10/17 06:47 Pulse Rate 80 11/10/17 06:47 Respiratory Rate 20 11/10/17 06:47 Blood Pressure 144/84 11/10/17 06:47 O2 Sat by Pulse Oximetry (%) 98 11/09/17 21:00 Constitutional: Yes: No Distress, Calm Cardiovascular: Yes: Regular Rate and Rhythm, S1, S2 Respiratory: Yes: CTA Bilaterally Gastrointestinal: Yes: Normal Bowel Sounds, Soft Extremities: Yes: Amputation, Deformity, Erythema, Other (dressing in place on L foot.). No: Calf Tenderness Edema: Yes Peripheral Pulses WNL: Yes (R foot peripheral pulses palpable) Labs: CBC, BMP 11/10/17 06:15 11/10/17 06:15 Imaging - Results Chest X-ray: Report Reviewed X-ray: Report Reviewed Assessment/Plan 57 yo M admitted to the hospital for R 3rd toe amputation and RLE angiogram planned on Tuesday. Diabetic foot ulcer requiring amputation Peripheral vascular disease ARA IDDM HTN HLD - ARA resolved with hydration, for RLE angiogram on Tuesday - Amputation to follow - Cont. to monitor Eran Rodriges PGY2 Pager: [phone] Visit type - Emergency Visit Emergency Visit: No - New Patient This patient is new to me today: Yes Date on this admission: 11/10/17 - Critical Care Critical Care patient: No
--- NOTE | 2017-11-10 11:19 | PN ---
Progress Note, Physician Chief Complaint: patient seen and examined - Current Medication List Current Medications: Active Medications Amlodipine Besylate (Norvasc -) 5 mg PO DAILY [facility] Last Admin: 11/10/17 09:52 Dose: 5 mg Atorvastatin Calcium (Lipitor -) 40 mg PO HS [facility] Last Admin: 11/09/17 21:58 Dose: 40 mg Heparin Sodium (Porcine) (Heparin -) 5,000 unit SQ TID [facility] Last Admin: 11/10/17 06:39 Dose: 5,000 unit Vancomycin HCl 1,000 mg/ (Sodium Chloride) 250 mls @ 200 mls/hr IVPB DAILY@ 1300 [facility] PRN Reason: Protocol Last Admin: 11/09/17 13:49 Dose: 200 mls/hr Cefepime HCl 1 gm/ Sodium (Chloride) 100 mls @ 200 mls/hr IVPB Q8H-IV [facility] Last Admin: 11/10/17 09:53 Dose: 200 mls/hr Insulin Aspart (Novolog Vial Sliding Scale -) 1 vial SQ ACHS [facility] PRN Reason: Protocol Last Admin: 11/10/17 06:37 Dose: 8 unit Insulin Detemir (Levemir Vial) 25 units SQ BID@0700,2200 [facility] Last Admin: 11/10/17 06:36 Dose: 25 units Multivitamins/Minerals/Vitamin C (Tab-A-Vit -) 1 tab PO DAILY [facility] Last Admin: 11/10/17 09:52 Dose: 1 tab Pantoprazole Sodium (Protonix -) 40 mg PO DAILY [facility] Last Admin: 11/10/17 09:58 Dose: Not Given Tamsulosin HCl (Flomax -) 0.4 mg PO DAILY@0830 [facility] Last Admin: 11/10/17 09:52 Dose: 0.4 mg - Objective Vital Signs: Vital Signs Temperature 98.3 F 11/10/17 06:47 Pulse Rate 80 11/10/17 06:47 Respiratory Rate 20 11/10/17 06:47 Blood Pressure 144/84 11/10/17 06:47 O2 Sat by Pulse Oximetry (%) 98 11/09/17 21:00 Constitutional: Yes: Calm Cardiovascular: Yes: Regular Rate and Rhythm, S1, S2 Respiratory: Yes: CTA Bilaterally Gastrointestinal: Yes: Normal Bowel Sounds, Soft Extremities: Yes: Other (Left TMA right foot 2 t oes amputated second toe swollen open wound) Labs: CBC, BMP 11/10/17 06:15 11/10/17 06:15 INR, PTT INR 1.11 (0.82-1.09) 11/08/17 15:42 Problem List - Problems (1) Diabetic foot ulcer Assessment/Plan: abx per ID zosyn allergy to get angiogram tmw ivf hydration will need amputation by podiatry Code(s): E11.621 - TYPE 2 DIABETES MELLITUS WITH FOOT ULCER; L97.509 - NON- PRESSURE CHRONIC ULCER OTH PRT UNSP FOOT W UNSP SEVERITY (2) Chronic kidney disease (CKD) Assessment/Plan: ivf cr decreasing renal consult Code(s): N18.9 - CHRONIC KIDNEY DISEASE, UNSPECIFIED Qualifiers: Chronic kidney disease stage: stage 3 (moderate) Qualified Code(s): N18.3 - Chronic kidney disease, stage 3 (moderate) (3) PVD (peripheral vascular disease) Assessment/Plan: to get angiogram with possible stent on RLE -tmw NPO tonight ivf Code(s): I73.9 - PERIPHERAL VASCULAR DISEASE, UNSPECIFIED
[2017-11-10] MEDS: SODIUM CHLORIDE 1,000 ML IV SCH (12:01)
--- NOTE | 2017-11-10 12:42 | CONSULT ---
Consult - text type - Consultation Consultation Note: Podiatry Consultation: 57 year old IDDM M, well known to wound healing service, presented on Tuesday with R 3rd digit diabetic ulcer with exposed bone. Denies F/V/N/C/SOB/CP. Afebrile. Noted to have occlusions on recent vascular studies. PMHx: IDDM, prostate CA s/p seeding, CKD, HTN, HLP Meds: noted ALL: zosyn SMITHA: R foot: 3rd digit DIPJ dorsal diabetic ulcer with exposed bone, moderate periwound erythema, no purulence, no fluctuance, no streaking cellulitis, no soft tissue crepitus, no signs of active infection. Imp: 57 year old IDDM M with R 3rd toe diabetic ulcer and clinical osteomyelitis 1. IV abx 2. Local wound care 3. For RLE angiogram with Dr. Nuno tomorrow 4. For R 3rd toe partial amputation with me on Tuesday Lisa Byrd DPM
[2017-11-10] MEDS: VANCOMYCIN 1,000 MG in SODIUM CHLORIDE 250 ML IVPB SCH (13:57)
--- NOTE | 2017-11-10 19:21 | PN ---
Teaching Attending Note Name of Resident: Neo Rodriges (Nephrology) ATTENDING PHYSICIAN STATEMENT I saw and evaluated the patient. I reviewed the resident's note and discussed the case with the resident. I agree with the resident's findings and plan as documented. Nephrology Pt is a 57 year old male with pmhx of CKD DM and HTN who was sent in for right 3rd toe amputation. Pt also needs an angiogram of his leg and possible stenting. I was called to evaluate him for CKD. He denies shortness of breath. He has no complaints. pmhx dm htn ckd allergies piperacillin tozabactom family hx dm ros denies Current Medications Generic Name Dose Route Start Last Admin Trade Name Freq PRN Reason Stop Dose Admin Amlodipine Besylate 5 mg 11/09/17 10:00 11/10/17 09:52 Norvasc - PO 5 mg DAILY [facility] Administration Atorvastatin Calcium 40 mg 11/08/17 22:00 11/09/17 21:58 Lipitor - PO 40 mg HS [facility] Administration Heparin Sodium (Porcine) 5,000 unit 11/09/17 14:00 11/10/17 16:54 Heparin - SQ 5,000 unit TID [facility] Administration Vancomycin HCl 1,000 mg/ 250 mls @ 200 mls/hr 11/09/17 13:00 11/10/17 13:57 Sodium Chloride IVPB 200 mls/hr DAILY@1300 [facility] Administration Protocol Cefepime HCl 1 gm/ Sodium 100 mls @ 200 mls/hr 11/09/17 14:00 11/10/17 18:20 Chloride IVPB 200 mls/hr Q8H-IV [facility] Administration Sodium Chloride 1,000 mls @ 75 mls/hr 11/10/17 11:15 11/10/17 12:01 Normal Saline - IV 75 mls/hr ASDIR [facility] Administration Insulin Aspart 1 vial 11/08/17 22:00 11/10/17 16:57 Novolog Vial Sliding Scale - SQ 8 unit ACHS [facility] Administration Protocol Insulin Detemir 25 units 11/09/17 22:00 11/10/17 06:36 Levemir Vial SQ 25 units BID@0700,2200 [facility] Administration Multivitamins/Minerals/Vitamin C 1 tab 11/09/17 10:00 11/10/17 09:52 Tab-A-Vit - PO 1 tab DAILY [facility] Administration Pantoprazole Sodium 40 mg 11/09/17 10:00 11/10/17 09:58 Protonix - PO Not Given DAILY [facility] Tamsulosin HCl 0.4 mg 11/09/17 08:30 11/10/17 09:52 Flomax - PO 0.4 mg DAILY@0830 [facility] Administration Laboratory Tests 11/08/17 11/08/17 11/09/17 15:42 23:00 06:40 Sodium BUN Creatinine 1.7 H D 1.1 D 1.6 H D Random Glucose 11/10/17 06:15 Sodium 135 L BUN 27 H Creatinine 1.3 Random Glucose 317 H* cardio s1s2 pulm clear GI soft ext neg edema wound dressing in place neuro awake and alert Impression 1. CKD 2. DFU 3. HTN 4. DM - poorly controlled 5. hx proteinuria 6. 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
[2017-11-10] MEDS: ATORVASTATIN CA 40 MG TABLET (FP) PO SCH (21:48)
[2017-11-10] MEDS: ACETYLCYSTEINE 20% 200MG/ML 4 ML VIAL *FOR ORAL / INH USE ONLY PO SCH (22:57)
[2017-11-11] MEDS: CEFEPIME 1 GM in SODIUM CHLORIDE 100 ML IVPB SCH ×2 (01:13→09:43)
[2017-11-11] MEDS: SODIUM CHLORIDE 1,000 ML IV SCH ×3 (01:14→18:02)
--- NOTE | 2017-11-11 01:38 | CONSULT ---
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 Byrd, for a right foot third toe partial amputation. The patient reports he has had multiple toe amputations in the past and has been f.ound to have poor flow to right leg and sever pad The patient denies any fever or chills,or vomiting ,he has elevated sugars and state he usually has better control sugars when his infection improves - Past Medical History [employer]: Yes: Peripheral Neuropathy, Other (IDDM) Cardio/Vascular: Yes: HTN, Hyperlipdemia, Other (peripheral vascular disease) Renal/: Yes: Renal Inusuff, Cancer (Prostate Cancer s/p seed implantations) Musculoskeletal: Yes: Osteoarthritis Endocrine: Yes: Diabetes Mellitus (Insulin dependent) - Past Surgical History Past Surgical History: Yes: Amputation (lt tma, amputations 2nd and 5th rt toes) , Stent (? vascular stent left leg) - Alcohol/Substance Use Hx Alcohol Use: No History of Substance Use: reports: Marijuana (in past) - Smoking History Smoking history: Former smoker Have you smoked in the past 12 months: No Aproximately how many cigarettes per day: 15 If you are a former smoker, when did you quit?: 2012 - Social History Usual Living Arrangement: Other (with family) ADL: Independent Occupation: Former [employer] History of Recent Travel: No Home Medications - Allergies Allergies/Adverse Reactions: Allergies Allergy/AdvReac Type Severity Reaction Status Date / Time piperacillin [From Zosyn] Allergy Verified 11/08/17 14:16 tazobactam [From Zosyn] Allergy Verified 11/08/17 14:16 - Home Medications Home Medications: Ambulatory Orders Atorvastatin Calcium 40 mg PO HS 08/10/16 Insulin Aspart [Novolog Flexpen] 22 units SQ TID 01/01/17 Insulin Degludec [Tresiba Flextouch U-100] 56 units SQ HS 01/01/17 Tamsulosin HCl [Flomax -] 0.4 mg PO DAILY 01/01/17 Aspirin Coated [Ecotrin -] 81 mg PO DAILY tablet.ec 07/20/17 Multivitamins [Multivit ([facility] Formul[facility])] 1 tab PO DAILY tab 07/20/17 Pantoprazole Sodium 40 mg PO DAILY 09/05/17 Metoprolol Tartrate 25 mg PO TID 11/08/17 Family Disease History - Family Disease History Family Disease History: Diabetes: Father (: unclear causes), Other: Mother ( Alive: healthy. ? dementia), Brother (1, healthy, 1 : suicide), Sister (1, alive: BCA) Review of Systems - Review of Systems Constitutional: reports: Weakness Eyes: reports: No Symptoms HENT: reports: No Symptoms Neck: reports: No Symptoms Cardiovascular: reports: Shortness of Breath Respiratory: reports: Exercise Intolerance, SOB on Exertion Gastrointestinal: reports: Bloating, Constipation Genitourinary: reports: No Symptoms Breasts: reports: No Symptoms Reported Musculoskeletal: reports: Muscle Cramps, Muscle Weakness Integumentary: reports: No Symptoms Neurological: reports: Numbness, Weakness Endocrine: reports: Unexplained Weight Loss Physical Exam Vital Signs: Vital Signs Temperature 99.1 F 11/10/17 18:54 Pulse Rate 82 11/10/17 18:54 Respiratory Rate 20 11/10/17 21:00 Blood Pressure 153/83 11/10/17 18:54 O2 Sat by Pulse Oximetry (%) 98 11/10/17 21:00 Constitutional: Yes: Anxious Eyes: Yes: EOM Intact HENT: Yes: Normocephalic Neck: Yes: Trachea Midline Cardiovascular: Yes: Regular Rate and Rhythm Respiratory: Yes: CTA Bilaterally Gastrointestinal: Yes: Normal Bowel Sounds ...Rectal Exam: Yes: Deferred Renal/: Yes: WNL Musculoskeletal: Yes: Joint Swelling, Muscle Pain, Muscle Weakness Extremities: Yes: Cold, Delayed Capillary Refill Edema: No Integumentary: Yes: Onychomycosis, Venous Stasis Changes Wound/Incision: Yes: Dressing Dry and Intact, Excoriated Neurological: Yes: Alert, Oriented Labs: CBC, BMP 11/10/17 06:15 11/10/17 06:15 Problem List - Problems (1) Controlled diabetes mellitus with diabetic peripheral angiopathy without gangrene, without long-term current 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 Code(s): E11.51 - TYPE 2 DIABETES W DIABETIC PERIPHERAL ANGIOPATH W/O GANGRENE (2) Diabetic foot ulcer Code(s): E11.621 - TYPE 2 DIABETES MELLITUS WITH FOOT ULCER; L97.509 - NON- PRESSURE CHRONIC ULCER OTH PRT UNSP FOOT W UNSP SEVERITY (3) Preop cardiovascular exam Code(s): Z01.810 - ENCOUNTER FOR PREPROCEDURAL CARDIOVASCULAR EXAMINATION (4) Abnormal liver enzymes Code(s): R74.8 - ABNORMAL LEVELS OF OTHER SERUM ENZYMES (5) Abscess of plantar aspect of foot Code(s): L02.619 - CUTANEOUS ABSCESS OF UNSPECIFIED FOOT (6) Acute gastroenteritis Code(s): K52.9 - NONINFECTIVE GASTROENTERITIS AND COLITIS, UNSPECIFIED (7) Acute on chronic renal failure Code(s): N17.9 - ACUTE KIDNEY FAILURE, UNSPECIFIED; N18.9 - CHRONIC KIDNEY DISEASE, UNSPECIFIED Qualifiers: Acute renal failure type: unspecified Chronic kidney disease stage: unspecified stage Qualified Code(s): N17.9 - Acute kidney failure, unspecified ; N18.9 - Chronic kidney disease, unspecified; N18.9 - Chronic kidney disease, unspecified Assessment/Plan Current Active Problems Diabetic foot ulcer (Acute) Preop cardiovascular exam (Acute) diabetes mellitus uncontrolled diabetic vascular disease htn ashd Abnormal Lab Results 11/10/17 11/10/17 06:15 06:15 RBC 3.99 L Hgb 10.8 L Hct 31.4 L MCV 78.5 L Eosinophils % 5.2 H D Sodium 135 L Carbon Dioxide 19 L BUN 27 H Random Glucose 317 H* AST 12 L Alkaline Phosphatase 146 H Albumin 3.1 L Laboratory Results - last 24 hr 11/10/17 11/10/17 11/10/17 06:15 06:15 06:35 WBC 9.0 RBC 3.99 L Hgb 10.8 L Hct 31.4 L MCV 78.5 L MCH 27.0 MCHC 34.4 RDW 13.6 Plt Count 212 D MPV 8.9 Neutrophils % 78.1 Lymphocytes % 10.3 Monocytes % 5.7 Eosinophils % 5.2 H D Basophils % 0.7 Sodium 135 L Potassium 4.4 Chloride 104 Carbon Dioxide 19 L Anion Gap 12 BUN 27 H Creatinine 1.3 Creat Clearance w eGFR 56.50 POC Glucometer 321 Random Glucose 317 H* Calcium 8.7 Total Bilirubin 0.5 AST 12 L ALT 15 Alkaline Phosphatase 146 H Total Protein 7.0 Albumin 3.1 L 05/17/18 05/17/18 05/17/18 11:55 16:56 21:46 WBC RBC Hgb Hct MCV MCH MCHC RDW Plt Count MPV Neutrophils % Lymphocytes % Monocytes % Eosinophils % Basophils % Sodium Potassium Chloride Carbon Dioxide Anion Gap BUN Creatinine Creat Clearance w eGFR POC Glucometer 313 313 344 Random Glucose Calcium Total Bilirubin AST ALT Alkaline Phosphatase Total Protein Albumin Laboratory Tests 09/06/17 09/06/17 09/07/17 16:48 22:01 06:38 POC Glucometer 336 355 324 09/07/17 09/07/17 11/10/17 12:49 17:01 06:35 POC Glucometer 254 369 321 11/10/17 11/10/17 11/10/17 11:55 16:56 21:46 POC Glucometer 313 313 344 Laboratory Tests 09/07/17 07:06 Hemoglobin A1c % 10.5 H D plan: levemir 28 units bid bgm novolog insuin scale will need strict control
[2017-11-11] MEDS: HEPARIN NA (PORCINE) 5,000 UNITS/ML 1ML VIAL SQ SCH ×3 (06:55→21:35)
[2017-11-11] MEDS: INSULIN (LEVEMIR) 100 UNITS/ML UNITS SQ SCH ×2 (06:55→21:36)
[2017-11-11] MEDS: INSULIN SLIDING SCALE (NOVOLOG) 1 VIAL SQ SCH ×4 (06:56→21:36)
[2017-11-11] MEDS: ACETYLCYSTEINE 20% 200MG/ML 4 ML VIAL *FOR ORAL / INH USE ONLY PO SCH ×2 (07:11→09:43)
[2017-11-11 08:44] LABS: ANION GAP 7 (8-16); BLOOD UREA NITROGEN 23 mg/dL (7-18); CALCIUM 8.8 mg/dL (8.5-10.1); CHLORIDE 104 mmol/L (98-107); CO2 27 mmol/L (21-32); CREATININE 1.2 mg/dL (0.7-1.3); GLUCOSE,RANDOM 237 mg/dL (74-106); POTASSIUM 4.5 mmol/L (3.5-5.1); SGOT/AST 9 U/L (15-37); SGPT/ALT 15 U/L (12-78); SODIUM 138 mmol/L (136-145)
[2017-11-11 08:46] LABS: ALK PHOS 147 U/L (45-117); BILIRUBIN,TOTAL 0.6 mg/dL (0.2-1.0)
--- NOTE | 2017-11-11 08:54 | PN ---
Progress Note, Physician - Current Medication List Current Medications: Active Medications Acetylcysteine (Mucomyst 20 Oral / Inh Use Only*) 600 mg PO BID [facility] Stop: 11/11/17 22:01 Last Admin: 11/11/17 07:11 Dose: Not Given Amlodipine Besylate (Norvasc -) 5 mg PO DAILY [facility] Last Admin: 11/10/17 09:52 Dose: 5 mg Atorvastatin Calcium (Lipitor -) 40 mg PO HS [facility] Last Admin: 11/10/17 21:48 Dose: 40 mg Heparin Sodium (Porcine) (Heparin -) 5,000 unit SQ TID [facility] Last Admin: 11/11/17 06:55 Dose: Not Given Vancomycin HCl 1,000 mg/ (Sodium Chloride) 250 mls @ 200 mls/hr IVPB DAILY@ 1300 [facility] PRN Reason: Protocol Last Admin: 11/10/17 13:57 Dose: 200 mls/hr Cefepime HCl 1 gm/ Sodium (Chloride) 100 mls @ 200 mls/hr IVPB Q8H-IV [facility] Last Admin: 11/11/17 01:13 Dose: 200 mls/hr Sodium Chloride (Normal Saline -) 1,000 mls @ 75 mls/hr IV ASDIR [facility] Last Admin: 11/11/17 01:14 Dose: 75 mls/hr Insulin Aspart (Novolog Vial Sliding Scale -) 1 vial SQ ACHS [facility] PRN Reason: Protocol Last Admin: 11/11/17 06:56 Dose: Not Given Insulin Detemir (Levemir Vial) 25 units SQ BID@0700,2200 [facility] Last Admin: 11/11/17 06:55 Dose: Not Given Multivitamins/Minerals/Vitamin C (Tab-A-Vit -) 1 tab PO DAILY [facility] Last Admin: 11/10/17 09:52 Dose: 1 tab Pantoprazole Sodium (Protonix -) 40 mg PO DAILY [facility] Last Admin: 11/10/17 09:58 Dose: Not Given Tamsulosin HCl (Flomax -) 0.4 mg PO DAILY@0830 [facility] Last Admin: 11/10/17 09:52 Dose: 0.4 mg - Objective Vital Signs: Vital Signs Temperature 98.3 F 11/11/17 06:09 Pulse Rate 83 11/11/17 06:09 Respiratory Rate 20 11/11/17 06:09 Blood Pressure 146/86 11/11/17 06:09 O2 Sat by Pulse Oximetry (%) 98 11/10/17 21:00 Labs: CBC, BMP 11/10/17 06:15 11/11/17 07:30 INR, PTT INR 1.11 (0.82-1.09) 11/08/17 15:42 Problem List - Problems (1) Diabetic foot ulcer Assessment/Plan: -Right foot, 3rd toe partial amputation - Scheduled for tomorrow- NPO after midnight - Possible osteo - Elevated WBC, per podiatry conversation with ED OTR [employer], will hold off on antibiotics for now until after amputation - F/u blood cultures - F/u ID consult - to get angiogram - will need amputation by podiatry Code(s): E11.621 - TYPE 2 DIABETES MELLITUS WITH FOOT ULCER; L97.509 - NON- PRESSURE CHRONIC ULCER OTH PRT UNSP FOOT W UNSP SEVERITY (2) Anemia Assessment/Plan: -Monitor Code(s): D64.9 - ANEMIA, UNSPECIFIED (3) Chronic kidney disease (CKD) Assessment/Plan: - Monitor electrolytes - Diabetic/sodium controlled diet - IVF Code(s): N18.9 - CHRONIC KIDNEY DISEASE, UNSPECIFIED Qualifiers: Chronic kidney disease stage: stage 3 (moderate) Qualified Code(s): N18.3 - Chronic kidney disease, stage 3 (moderate) (4) Diabetes mellitus Assessment/Plan: - the patient has uncontrolled DM, will give Levemir tonight. Monitor BGM - BGM ACHS - ISS ACHS - Endo Code(s): E11.9 - TYPE 2 DIABETES MELLITUS WITHOUT COMPLICATIONS Qualifiers: Diabetes mellitus type: type 1 Diabetes mellitus complication status: with unspecified complications Qualified Code(s): E10.8 - Type 1 diabetes mellitus with unspecified complications (5) Foot ulcer Code(s): L97.509 - NON-PRESSURE CHRONIC ULCER OTH PRT UNSP FOOT W UNSP SEVERITY Qualifiers: Laterality: right Non-pressure ulcer stage: with fat layer exposed Qualified Code(s): L97.512 - Non-pressure chronic ulcer of other part of right foot with fat layer exposed (6) HTN (hypertension) Assessment/Plan: -Stable Code(s): I10 - ESSENTIAL (PRIMARY) HYPERTENSION Qualifiers:
[2017-11-11] MEDS ORDERED: PT OWN MED DRAWER 7, Y5N ONE ×4 (09:36→19:48)
[2017-11-11] MEDS: TAMSULOSIN HCL 0.4 MG CAP.ER.24H (FP) PO SCH (09:43)
[2017-11-11] MEDS: PANTOPRAZOLE 40 MG TABLET (FP) PO SCH (09:44)
[2017-11-11] MEDS: amLODIPine BESYLATE 5 MG TABLET (FP) PO SCH (09:44)
[2017-11-11] MEDS: MULTIVITAMINS (DAILY MVI) TABLET (FP) PO SCH (09:45)
[2017-11-11] MEDS ORDERED: INSULIN (NOVOLOG) ASPART 100 UNITS/ML 10ML VIAL ONE (11:41)
[2017-11-11] MEDS: VANCOMYCIN 1,000 MG in SODIUM CHLORIDE 250 ML IVPB SCH (13:32)
[2017-11-11] MEDS ORDERED: PROPOFOL 20 ML ONE (14:22)
[2017-11-11] MEDS ORDERED: MIDAZOLAM HCL 2 MG/2 ML SINGLE DOSE VIAL ONE (14:22)
--- NOTE | 2017-11-11 14:24 | PN ---
Progress Note, Physician History of Present Illness: Awake, alert Awaiting stent placement No c/o foot pain No fever/ chills Tolerating cephalosporin BC (-) WBC WNL - Current Medication List Current Medications: Active Medications Acetylcysteine (Mucomyst 20 Oral / Inh Use Only*) 600 mg PO BID [facility] Stop: 11/11/17 22:01 Last Admin: 11/11/17 09:43 Dose: 600 mg Amlodipine Besylate (Norvasc -) 5 mg PO DAILY [facility] Last Admin: 11/11/17 09:44 Dose: 5 mg Atorvastatin Calcium (Lipitor -) 40 mg PO HS [facility] Last Admin: 11/10/17 21:48 Dose: 40 mg Heparin Sodium (Porcine) (Heparin -) 5,000 unit SQ TID [facility] Last Admin: 11/11/17 13:33 Dose: Not Given Vancomycin HCl 1,000 mg/ (Sodium Chloride) 250 mls @ 200 mls/hr IVPB DAILY@ 1300 [facility] PRN Reason: Protocol Last Admin: 11/11/17 13:32 Dose: 200 mls/hr Cefepime HCl 1 gm/ Sodium (Chloride) 100 mls @ 200 mls/hr IVPB Q8H-IV [facility] Last Admin: 11/11/17 09:43 Dose: 200 mls/hr Sodium Chloride (Normal Saline -) 1,000 mls @ 75 mls/hr IV ASDIR [facility] Last Admin: 11/11/17 12:42 Dose: Not Given Insulin Aspart (Novolog Vial Sliding Scale -) 1 vial SQ ACHS [facility] PRN Reason: Protocol Last Admin: 11/11/17 11:42 Dose: 5 units Insulin Detemir (Levemir Vial) 25 units SQ BID@0700,2200 [facility] Last Admin: 11/11/17 06:55 Dose: Not Given Multivitamins/Minerals/Vitamin C (Tab-A-Vit -) 1 tab PO DAILY [facility] Last Admin: 11/11/17 09:45 Dose: Not Given Pantoprazole Sodium (Protonix -) 40 mg PO DAILY [facility] Last Admin: 11/11/17 09:44 Dose: Not Given Tamsulosin HCl (Flomax -) 0.4 mg PO DAILY@0830 [facility] Last Admin: 11/11/17 09:43 Dose: 0.4 mg - Objective Vital Signs: Vital Signs Temperature 98.6 F 11/11/17 09:33 Pulse Rate 87 11/11/17 09:33 Respiratory Rate 20 11/11/17 09:33 Blood Pressure 144/85 11/11/17 09:33 O2 Sat by Pulse Oximetry (%) 95 11/11/17 09:00 Constitutional: Yes: No Distress Eyes: Yes: Conjunctiva Clear Cardiovascular: Yes: Regular Rate and Rhythm, S1, S2 Respiratory: Yes: CTA Bilaterally Gastrointestinal: Yes: Normal Bowel Sounds, Soft. No: Tenderness Extremities: Yes: Other (R 3rd toe diffusely swollen, erythematous) Labs: CBC, BMP 11/10/17 06:15 11/11/17 07:30 INR, PTT INR 1.11 (0.82-1.09) 11/08/17 15:42 Assessment/Plan Cellulitis/ osteomyelitis R 3rd toe Zosyn allergy Azotemia- improved Continue empiric zosyn/ vancomycin
[2017-11-11] MEDS ORDERED: INSULIN (NOVOLOG) ASPART 100 UNITS/ML 10ML VIAL SQ ONE (14:30)
--- NOTE | 2017-11-11 14:40 | PN ---
Progress Note, Physician History of Present Illness: Pt seen and examined at bedside. He is awake and alert. He is going to OR. - Current Medication List Current Medications: Active Medications Acetylcysteine (Mucomyst 20 Oral / Inh Use Only*) 600 mg PO BID [facility] Stop: 11/11/17 22:01 Last Admin: 11/11/17 09:43 Dose: 600 mg Amlodipine Besylate (Norvasc -) 5 mg PO DAILY [facility] Last Admin: 11/11/17 09:44 Dose: 5 mg Atorvastatin Calcium (Lipitor -) 40 mg PO HS [facility] Last Admin: 11/10/17 21:48 Dose: 40 mg Heparin Sodium (Porcine) (Heparin -) 5,000 unit SQ TID [facility] Last Admin: 11/11/17 13:33 Dose: Not Given Vancomycin HCl 1,000 mg/ (Sodium Chloride) 250 mls @ 200 mls/hr IVPB DAILY@ 1300 [facility] PRN Reason: Protocol Last Admin: 11/11/17 13:32 Dose: 200 mls/hr Cefepime HCl 1 gm/ Sodium (Chloride) 100 mls @ 200 mls/hr IVPB Q8H-IV [facility] Last Admin: 11/11/17 09:43 Dose: 200 mls/hr Sodium Chloride (Normal Saline -) 1,000 mls @ 75 mls/hr IV ASDIR [facility] Last Admin: 11/11/17 12:42 Dose: Not Given Insulin Aspart (Novolog Vial Sliding Scale -) 1 vial SQ ACHS [facility] PRN Reason: Protocol Last Admin: 11/11/17 11:42 Dose: 5 units Insulin Detemir (Levemir Vial) 25 units SQ BID@0700,2200 [facility] Last Admin: 11/11/17 06:55 Dose: Not Given Multivitamins/Minerals/Vitamin C (Tab-A-Vit -) 1 tab PO DAILY [facility] Last Admin: 11/11/17 09:45 Dose: Not Given Pantoprazole Sodium (Protonix -) 40 mg PO DAILY [facility] Last Admin: 11/11/17 09:44 Dose: Not Given Tamsulosin HCl (Flomax -) 0.4 mg PO DAILY@0830 [facility] Last Admin: 11/11/17 09:43 Dose: 0.4 mg - Objective Vital Signs: Vital Signs Temperature 98.6 F 11/11/17 09:33 Pulse Rate 87 11/11/17 09:33 Respiratory Rate 20 11/11/17 09:33 Blood Pressure 144/85 11/11/17 09:33 O2 Sat by Pulse Oximetry (%) 95 11/11/17 09:00 Constitutional: Yes: Calm Eyes: Yes: Conjunctiva Clear HENT: Yes: Atraumatic Cardiovascular: Yes: S1, S2 Respiratory: Yes: CTA Bilaterally Gastrointestinal: Yes: Soft Genitourinary: Yes: WNL Edema: No Wound/Incision: Yes: Dressing Dry and Intact Neurological: Yes: Oriented Psychiatric: Yes: Oriented Labs: CBC, BMP 11/10/17 06:15 11/11/17 07:30 INR, PTT INR 1.11 (0.82-1.09) 11/08/17 15:42 Problem List - Problems (1) CKD stage 3 due to type 2 diabetes mellitus Code(s): E11.22 - TYPE 2 DIABETES MELLITUS W DIABETIC CHRONIC KIDNEY DISEASE; N18.3 - CHRONIC KIDNEY DISEASE, STAGE 3 (MODERATE) (2) Diabetes mellitus Code(s): E11.9 - TYPE 2 DIABETES MELLITUS WITHOUT COMPLICATIONS Qualifiers: Diabetes mellitus type: type 1 Diabetes mellitus complication status: with unspecified complications Qualified Code(s): E10.8 - Type 1 diabetes mellitus with unspecified complications Assessment/Plan Current Medications Generic Name Dose Route Start Last Admin Trade Name Freq PRN Reason Stop Dose Admin Acetylcysteine 600 mg 11/10/17 19:21 11/11/17 09:43 Mucomyst 20 Oral / Inh Use Only* PO 11/11/17 22:01 600 mg BID [facility] Administration Amlodipine Besylate 5 mg 11/09/17 10:00 11/11/17 09:44 Norvasc - PO 5 mg DAILY [facility] Administration Atorvastatin Calcium 40 mg 11/08/17 22:00 11/10/17 21:48 Lipitor - PO 40 mg HS [facility] Administration Heparin Sodium (Porcine) 5,000 unit 11/09/17 14:00 11/11/17 13:33 Heparin - SQ Not Given TID [facility] Vancomycin HCl 1,000 mg/ 250 mls @ 200 mls/hr 11/09/17 13:00 11/11/17 13:32 Sodium Chloride IVPB 200 mls/hr DAILY@1300 [facility] Administration Protocol Cefepime HCl 1 gm/ Sodium 100 mls @ 200 mls/hr 11/09/17 14:00 11/11/17 09:43 Chloride IVPB 200 mls/hr Q8H-IV [facility] Administration Sodium Chloride 1,000 mls @ 75 mls/hr 11/10/17 11:15 11/11/17 12:42 Normal Saline - IV Not Given ASDIR [facility] Insulin Aspart 1 vial 11/11/17 07:00 11/11/17 11:42 Novolog Vial Sliding Scale - SQ 5 units ACHS [facility] Administration Protocol Insulin Detemir 25 units 11/09/17 22:00 11/11/17 06:55 Levemir Vial SQ Not Given BID@0700,2200 [facility] Multivitamins/Minerals/Vitamin C 1 tab 11/09/17 10:00 11/11/17 09:45 Tab-A-Vit - PO Not Given DAILY [facility] Pantoprazole Sodium 40 mg 11/09/17 10:00 11/11/17 09:44 Protonix - PO Not Given DAILY [facility] Tamsulosin HCl 0.4 mg 11/09/17 08:30 11/11/17 09:43 Flomax - PO 0.4 mg DAILY@0830 [facility] Administration Impression 1. CKD 2. DFU 3. HTN 4. DM - poorly controlled 5. hx proteinuria 6. hyperlipidemia Plan - renal function is stabilizing - repeat labs in am - cont fluids - vascular and podiatry follow up - will follow
[2017-11-11] MEDS ORDERED: ceFAZolin SODIUM 1 GM VIAL IVPB ONE (15:10)
[2017-11-11] MEDS ORDERED: LIDOCAINE HCL 1%, 10 MG/ML (20ML VIAL) INF ONE (15:46)
[2017-11-11] MEDS ORDERED: HEPARIN NA (PORCINE) 5,000 UNITS/ML 1ML VIAL ONE ×2 (16:06)
--- NOTE | 2017-11-11 16:19 | OP ---
Operative Note - Note: Operative Date: 11/11/17 Pre-Operative Diagnosis: right foot toe gangrene Operation: Aortogram , Right lower extremity angiogram. Findings: Distal sFA occlusion. Could not cross lesion. Will have to go retrograde on tuesday Post-Operative Diagnosis: Same as Pre-op Surgeon: Guerrero Nuno Anesthesia: Fractional Estimated Blood Loss (mls): 50 Operative Report Dictated: Yes
--- NOTE | 2017-11-11 16:20 | PN ---
Progress Note (short form) - Note Progress Note: Vascular Surgery S/P RLE angiogram. Distal SFA occlusion. Could not cross today. Will need to go retrograde from popliteal artery to cross lesion and stent. Guerrero alicea DO Problem List - Problems (1) Diabetic foot ulcer Code(s): E11.621 - TYPE 2 DIABETES MELLITUS WITH FOOT ULCER; L97.509 - NON- PRESSURE CHRONIC ULCER OTH PRT UNSP FOOT W UNSP SEVERITY
[2017-11-11] MEDS ORDERED: ONDANSETRON 4 MG/2 ML VIAL IVPUSH PRN (16:24)
--- NOTE | 2017-11-11 17:43 | OP ---
DATE OF OPERATION: 11/11/2017 PREOPERATIVE DIAGNOSIS: Right foot toe gangrene. POSTOPERATIVE DIAGNOSIS: Right foot toe gangrene. PROCEDURE: Aortogram, right lower extremity angiogram. FINDINGS: Distal SFA occlusion; could not cross the lesion. We will have to do retrograde popliteal stick on Tuesday. SURGEON: Guerrero Jiang DO ANESTHESIA: Fractional. BLOOD LOSS: 50 mL The patient is a 57-year-old male who comes in with right toe gangrene with bone exposed, and Podiatry wants to do a toe amputation. Patient had an ultrasound done preoperatively showing distal SFA occlusion for about 5-7 cm. It was decided that he would need an angiogram. Patient was consented for the procedure, understanding all risks, benefits, and alternatives, then taken to the operating room. DESCRIPTION OF PROCEDURE: Once in the operating room, was laid on the operating table in supine manner, and the areas of the left and right groin were prepped and draped in a sterile surgical manner. We then injected 10 mL of lidocaine 1% over the left common femoral artery. We then went ahead and used our micropuncture needle, punctured the left common femoral artery. Micropuncture wire was inserted. Micropuncture sheath was inserted, and a traditional 5-[place] sheath was inserted. We then placed a 0.035 floppy guidewire up into the aorta, followed by an Omni Flush catheter. We then shot an aortogram via hand injection, showing that the aorta and the iliac arteries were without any disease. We then went ahead and went up and over using our 0.035 floppy guidewire to the right common femoral artery. Omni Flush catheter followed. We then went ahead and shot a right lower extremity angiogram, showing that the profunda and the common femoral artery were patent, but the SFA had sluggish flow and the distal SFA was occluded with reconstitution at the above-knee distal SFA. Patient had 2-vessel runoff into the foot. At this point, we placed a 0.035 stiff guidewire into the SFA and removed our Omni Flush catheter. We then went ahead and placed a 6 x 45 crossover sheath, and 5000 units of heparin were administered to the patient. We got our wire down to the occlusion under fluoroscopy. We then used a Quick-Cross catheter, but we could not safely cross the lesion. We were subintimal and could not get back into the [place] vessel. At this point, we decided that the best mode of treatment here would be a retrograde stick from the popliteal artery in order to balloon and stent the artery. At this point, we brought our crossover sheath up and over. A StarClose device was successfully deployed in the left common femoral artery. Pressure was held there for 5 minutes. Afterwards, there was no bleeding. Area was wet and dried, and Dermabond was placed. The patient tolerated the procedure with no complications. GUERRERO JIANG DO NP/[id number]
[2017-11-11] MEDS ORDERED: CEFEPIME 1 GM in SODIUM CHLORIDE 100 ML IVPB SCH (18:00)
[2017-11-11] MEDS ORDERED: CEFEPIME HCL/D5W 1 GM/50 ML BAG IVPB SCH (18:00)
[2017-11-11] MEDS: ATORVASTATIN CA 40 MG TABLET (FP) PO SCH (21:34)
[2017-11-11] MEDS ORDERED: ACETYLCYSTEINE 20% 200MG/ML 4 ML VIAL *FOR ORAL / INH USE ONLY PO SCH (22:00)
[2017-11-12] MEDS: CEFEPIME HCL/D5W 1 GM/50 ML BAG IVPB SCH ×2 (01:03→10:01)
[2017-11-12] MEDS: INSULIN (LEVEMIR) 100 UNITS/ML UNITS SQ SCH ×2 (06:41→21:44)
[2017-11-12] MEDS: HEPARIN NA (PORCINE) 5,000 UNITS/ML 1ML VIAL SQ SCH ×3 (06:42→21:45)
[2017-11-12] MEDS: INSULIN SLIDING SCALE (NOVOLOG) 1 VIAL SQ SCH ×4 (06:43→21:43)
[2017-11-12 08:23] LABS: CHLORIDE 105 mmol/L (98-107); POTASSIUM 4.3 mmol/L (3.5-5.1); SODIUM 139 mmol/L (136-145)
[2017-11-12 08:44] LABS: ANION GAP 8 (8-16); BLOOD UREA NITROGEN 20 mg/dL (7-18); CALCIUM 8.8 mg/dL (8.5-10.1); CO2 26 mmol/L (21-32); CREATININE 1.4 mg/dL (0.7-1.3); GLUCOSE,RANDOM 235 mg/dL (74-106)
--- NOTE | 2017-11-12 09:04 | PN ---
Progress Note, Physician History of Present Illness: no change surgical note appreciated - Current Medication List Current Medications: Active Medications Amlodipine Besylate (Norvasc -) [address] [facility] Atorvastatin Calcium (Lipitor -) [address] [facility] Last Admin: 11/11/17 21:34 Dose: 40 mg Fentanyl (Sublimaze Injection -) 25 mcg IVPUSH [id number] PRN PRN Reason: PAIN-PACU ORDER X 4 DOSES ONLY Heparin Sodium (Porcine) (Heparin -) 5,[address] [facility] Last Admin: 11/12/17 06:42 Dose: 5,000 unit Sodium Chloride (Normal Saline -) 1,000 mls @ 75 mls/hr IV ASDIR [facility] Last Admin: 11/11/17 18:02 Dose: Not Given Vancomycin HCl 1,000 mg/ (Sodium Chloride) 250 mls @ 166.667 mls/hr IVPB DAILY@ 1300 [facility] PRN Reason: Protocol Cefepime HCl (Maxipime 1 Gm Premix Ivpb) 1 gm in 50 mls @ 200 mls/hr IVPB Q8H- IV [facility] Last Admin: 11/12/17 01:03 Dose: 200 mls/hr Insulin Aspart (Novolog Vial Sliding Scale -) [address] [facility] PRN Reason: Protocol Last Admin: 11/12/17 06:43 Dose: 7 units Insulin Detemir (Levemir Vial) 25 units SQ BID@0700,2200 [facility] Last Admin: 11/12/17 06:41 Dose: 25 units Multivitamins/Minerals/Vitamin C (Tab-A-Vit -) [address] [facility] Ondansetron HCl (Zofran Injection) 4 mg IVPUSH Q6H PRN PRN Reason: NAUSEA AND/OR VOMITING Pantoprazole Sodium (Protonix -) [address] [facility] Tamsulosin HCl (Flomax -) 0.4 mg PO DAILY@0830 [facility] - Objective Vital Signs: Vital Signs Temperature 98.3 F 11/12/17 06:00 Pulse Rate 97 H 11/12/17 06:00 Respiratory Rate 20 11/12/17 06:00 Blood Pressure 159/86 11/12/17 06:00 O2 Sat by Pulse Oximetry (%) 98 11/11/17 21:00 Cardiovascular: Yes: S1, S2 Respiratory: Yes: Regular, CTA Bilaterally Gastrointestinal: Yes: Normal Bowel Sounds, Soft Labs: CBC, BMP 11/10/17 06:15 11/12/17 06:00 INR, PTT INR 1.11 (0.82-1.09) 11/08/17 15:42 Problem List - Problems (1) Diabetic foot ulcer Assessment/Plan: -Right foot, 3rd toe partial amputation - Scheduled for tomorrow- NPO after midnight - Possible osteo - Elevated WBC, per podiatry conversation with ED SALES ROUTE [employer]IVER, will hold off on antibiotics for now until after amputation - F/u blood cultures - F/u ID consult - had angiogram--stenois--repeat retrograde on Tuesday - will need amputation by podiatry Code(s): E11.621 - TYPE 2 DIABETES MELLITUS WITH FOOT ULCER; L97.509 - NON- PRESSURE CHRONIC ULCER OTH PRT UNSP FOOT W UNSP SEVERITY (2) Anemia Assessment/Plan: -Monitor Code(s): D64.9 - ANEMIA, UNSPECIFIED (3) Chronic kidney disease (CKD) Assessment/Plan: - Monitor electrolytes - Diabetic/sodium controlled diet - IVF Code(s): N18.9 - CHRONIC KIDNEY DISEASE, UNSPECIFIED Qualifiers: Chronic kidney disease stage: stage 3 (moderate) Qualified Code(s): N18.3 - Chronic kidney disease, stage 3 (moderate) (4) Diabetes mellitus Assessment/Plan: - the patient has uncontrolled DM, will give Levemir tonight. Monitor BGM - BGM ACHS - ISS ACHS - Endo Code(s): E11.9 - TYPE 2 DIABETES MELLITUS WITHOUT COMPLICATIONS Qualifiers: Diabetes mellitus type: type 1 Diabetes mellitus complication status: with unspecified complications Qualified Code(s): E10.8 - Type 1 diabetes mellitus with unspecified complications (5) Foot ulcer Code(s): L97.509 - NON-PRESSURE CHRONIC ULCER OTH PRT UNSP FOOT W UNSP SEVERITY Qualifiers: Laterality: right Non-pressure ulcer stage: with fat layer exposed Qualified Code(s): L97.512 - Non-pressure chronic ulcer of other part of right foot with fat layer exposed (6) HTN (hypertension) Assessment/Plan: -Stable Code(s): I10 - ESSENTIAL (PRIMARY) HYPERTENSION Qualifiers:
--- NOTE | 2017-11-12 09:40 | PN ---
Progress Note, Physician History of Present Illness: Awake, alert No c/o foot pain No fever/ chills Tolerating cephalosporin BC (-) WBC WNL - Current Medication List Current Medications: Active Medications Amlodipine Besylate (Norvasc -) 5 mg PO DAILY [facility] Atorvastatin Calcium (Lipitor -) 40 mg PO HS [facility] Last Admin: 11/11/17 21:34 Dose: 40 mg Fentanyl (Sublimaze Injection -) 25 mcg IVPUSH [id number] PRN PRN Reason: PAIN-PACU ORDER X 4 DOSES ONLY Heparin Sodium (Porcine) (Heparin -) 5,000 unit SQ TID [facility] Last Admin: 11/12/17 06:42 Dose: 5,000 unit Sodium Chloride (Normal Saline -) 1,000 mls @ 75 mls/hr IV ASDIR [facility] Last Admin: 11/11/17 18:02 Dose: Not Given Vancomycin HCl 1,000 mg/ (Sodium Chloride) 250 mls @ 166.667 mls/hr IVPB DAILY@ 1300 [facility] PRN Reason: Protocol Cefepime HCl (Maxipime 1 Gm Premix Ivpb) 1 gm in 50 mls @ 200 mls/hr IVPB Q8H- IV [facility] Last Admin: 11/12/17 01:03 Dose: 200 mls/hr Insulin Aspart (Novolog Vial Sliding Scale -) 1 vial SQ ACHS [facility] PRN Reason: Protocol Last Admin: 11/12/17 06:43 Dose: 7 units Insulin Detemir (Levemir Vial) 25 units SQ BID@0700,2200 [facility] Last Admin: 11/12/17 06:41 Dose: 25 units Multivitamins/Minerals/Vitamin C (Tab-A-Vit -) 1 tab PO DAILY [facility] Ondansetron HCl (Zofran Injection) 4 mg IVPUSH Q6H PRN PRN Reason: NAUSEA AND/OR VOMITING Pantoprazole Sodium (Protonix -) 40 mg PO DAILY [facility] Tamsulosin HCl (Flomax -) 0.4 mg PO DAILY@0830 [facility] - Objective Vital Signs: Vital Signs Temperature 98.3 F 11/12/17 06:00 Pulse Rate 97 H 11/12/17 06:00 Respiratory Rate 20 11/12/17 06:00 Blood Pressure 159/86 11/12/17 06:00 O2 Sat by Pulse Oximetry (%) 98 11/11/17 21:00 Constitutional: Yes: No Distress Eyes: Yes: Conjunctiva Clear Cardiovascular: Yes: Regular Rate and Rhythm, S1, S2 Respiratory: Yes: CTA Bilaterally Gastrointestinal: Yes: Normal Bowel Sounds, Soft. No: Tenderness Extremities: Yes: Other (erythema, swellimg R 3rd toe) Labs: CBC, BMP 11/10/17 06:15 11/12/17 06:00 INR, PTT INR 1.11 (0.82-1.09) 11/08/17 15:42 Assessment/Plan Cellulitis/ osteomyelitis R 3rd toe Zosyn allergy Azotemia- improved Continue empiric zosyn/ vancomycin Check vancomycin level
--- NOTE | 2017-11-12 09:53 | PN ---
Progress Note (short form) - Note Progress Note: POD #1 - s/p angiogram/angioplasty left leg under MAC. VSS. Pt. doing well, sitting up comfortably in bed. No complaints. No apparent anesthetic complications noted. Continue current care.
[2017-11-12] MEDS: MULTIVITAMINS (DAILY MVI) TABLET (FP) PO SCH (09:58)
[2017-11-12] MEDS: TAMSULOSIN HCL 0.4 MG CAP.ER.24H (FP) PO SCH (09:58)
[2017-11-12] MEDS: amLODIPine BESYLATE 5 MG TABLET (FP) PO SCH (09:58)
[2017-11-12] MEDS: PANTOPRAZOLE 40 MG TABLET (FP) PO SCH (09:59)
[2017-11-12] MEDS ORDERED: PT OWN MED DRAWER 7, Y5N ONE ×3 (10:13→18:59)
--- NOTE | 2017-11-12 10:21 | PN ---
Progress Note (short form) - Note Progress Note: RENAL Pt is awake and alert denies complaints Last Vital Signs Temp Pulse Resp BP Pulse Ox 98.3 F 97 H 20 159/86 98 11/12/17 06:00 11/12/17 06:00 11/12/17 06:00 11/12/17 06:00 11/11/17 21:00 lungs clear cvs s1s2 rr abd soft ext no edema, has TMA neuro a+ox3 Current Medications Generic Name Dose Route Start Last Admin Trade Name Freq PRN Reason Stop Dose Admin Amlodipine Besylate 5 mg 11/12/17 10:00 11/12/17 09:58 Norvasc - PO 5 mg DAILY [facility] Administration Atorvastatin Calcium 40 mg 11/11/17 22:00 11/11/17 21:34 Lipitor - PO 40 mg HS [facility] Administration Fentanyl 25 mcg 11/11/17 16:24 Sublimaze Injection - IVPUSH [id number] PRN PAIN-PACU ORDER X 4 DOSES ONLY Heparin Sodium (Porcine) 5,000 unit 11/11/17 22:00 11/12/17 06:42 Heparin - SQ 5,000 unit TID [facility] Administration Sodium Chloride 1,000 mls @ 75 mls/hr 11/11/17 17:18 11/11/17 18:02 Normal Saline - IV Not Given ASDIR [facility] Vancomycin HCl 1,000 mg/ 250 mls @ 166.667 mls/hr 11/12/17 13:00 Sodium Chloride IVPB DAILY@1300 [facility] Protocol Cefepime HCl 1 gm in 50 mls @ 200 mls/hr 11/11/17 18:01 11/12/17 10:01 Maxipime 1 Gm Premix Ivpb IVPB 200 mls/hr Q8H-IV [facility] Administration Insulin Aspart 1 vial 11/11/17 22:00 11/12/17 06:43 Novolog Vial Sliding Scale - SQ 7 units ACHS [facility] Administration Protocol Insulin Detemir 25 units 11/11/17 22:00 11/12/17 06:41 Levemir Vial SQ 25 units BID@0700,2200 [facility] Administration Multivitamins/Minerals/Vitamin C 1 tab 11/12/17 10:00 11/12/17 09:58 Tab-A-Vit - PO 1 tab DAILY [facility] Administration Ondansetron HCl 4 mg 05/18/18 16:24 Zofran Injection IVPUSH Q6H PRN NAUSEA AND/OR VOMITING Pantoprazole Sodium 40 mg 11/12/17 10:00 11/12/17 09:59 Protonix - PO 40 mg DAILY [facility] Administration Tamsulosin HCl 0.4 mg 11/12/17 08:30 11/12/17 09:58 Flomax - PO 0.4 mg DAILY@0830 [facility] Administration CBC, BMP 11/10/17 06:15 11/12/17 06:00 IMPRESSION Impression 1. CKD 2. DFU 3. HTN 4. DM - poorly controlled 5. hx proteinuria 6. hyperlipidemia Plan - no changes, monitor renal function -vanco per trough - cont fluids - vascular and podiatry follow up [facility]
[2017-11-12] MEDS: VANCOMYCIN 1,000 MG in SODIUM CHLORIDE 250 ML IVPB SCH (14:35)
--- NOTE | 2017-11-12 16:29 | PN ---
Progress Note (short form) - Note Progress Note: Seen at bedside in NAD Afebrile VSS Dressing CDI PT scheduled for revascularization on Tuesday and then partial toe amputation pending vascular clearance Discussed case with vascular Discussed with pt in detail Reviewed risks benefits alternatives as well as possible complications PT understands and agrees with approach
[2017-11-12] MEDS: CEFEPIME 1 GM in SODIUM CHLORIDE 100 ML IVPB SCH (18:42)
[2017-11-12] MEDS ORDERED: INSULIN (NOVOLOG) ASPART 100 UNITS/ML 10ML VIAL ONE (20:03)
[2017-11-12] MEDS: SODIUM CHLORIDE 1,000 ML IV SCH (20:26)
[2017-11-12] MEDS: ATORVASTATIN CA 40 MG TABLET (FP) PO SCH (21:44)
[2017-11-13] MEDS: CEFEPIME 1 GM in SODIUM CHLORIDE 100 ML IVPB SCH ×3 (01:29→18:41)
[2017-11-13] MEDS: SODIUM CHLORIDE 1,000 ML IV SCH (01:29)
[2017-11-13] MEDS: INSULIN SLIDING SCALE (NOVOLOG) 1 VIAL SQ SCH ×4 (06:08→21:11)
[2017-11-13] MEDS: HEPARIN NA (PORCINE) 5,000 UNITS/ML 1ML VIAL SQ SCH ×3 (06:08→21:11)
[2017-11-13] MEDS: INSULIN (LEVEMIR) 100 UNITS/ML UNITS SQ SCH ×2 (06:09→21:11)
--- NOTE | 2017-11-13 08:26 | PN ---
Progress Note, Physician History of Present Illness: no change surgical note appreciated - Current Medication List Current Medications: Active Medications Amlodipine Besylate (Norvasc -) 5 mg PO DAILY [facility] Last Admin: 11/12/17 09:58 Dose: 5 mg Atorvastatin Calcium (Lipitor -) 40 mg PO HS [facility] Last Admin: 11/12/17 21:44 Dose: 40 mg Fentanyl (Sublimaze Injection -) 25 mcg IVPUSH [id number] PRN PRN Reason: PAIN-PACU ORDER X 4 DOSES ONLY Heparin Sodium (Porcine) (Heparin -) 5,000 unit SQ TID [facility] Last Admin: 11/13/17 06:08 Dose: 5,000 unit Sodium Chloride (Normal Saline -) 1,000 mls @ 75 mls/hr IV ASDIR [facility] Last Admin: 11/13/17 01:29 Dose: 75 mls/hr Vancomycin HCl 1,000 mg/ (Sodium Chloride) 250 mls @ 166.667 mls/hr IVPB DAILY@ 1300 [facility] PRN Reason: Protocol Last Admin: 11/12/17 14:35 Dose: 166.667 mls/hr Cefepime HCl 1 gm/ Sodium (Chloride) 100 mls @ 200 mls/hr IVPB Q8H-IV [facility] Last Admin: 11/13/17 01:29 Dose: 200 mls/hr Insulin Aspart (Novolog Vial Sliding Scale -) 1 vial SQ ACHS [facility] PRN Reason: Protocol Last Admin: 11/13/17 06:08 Dose: 5 units Insulin Detemir (Levemir Vial) 25 units SQ BID@0700,2200 [facility] Last Admin: 11/13/17 06:09 Dose: 25 units Multivitamins/Minerals/Vitamin C (Tab-A-Vit -) 1 tab PO DAILY [facility] Last Admin: 11/12/17 09:58 Dose: 1 tab Ondansetron HCl (Zofran Injection) 4 mg IVPUSH Q6H PRN PRN Reason: NAUSEA AND/OR VOMITING Pantoprazole Sodium (Protonix -) 40 mg PO DAILY [facility] Last Admin: 11/12/17 09:59 Dose: 40 mg Tamsulosin HCl (Flomax -) 0.4 mg PO DAILY@0830 [facility] Last Admin: 11/12/17 09:58 Dose: 0.4 mg - Objective Vital Signs: Vital Signs Temperature 97.8 F 11/13/17 06:00 Pulse Rate 87 11/13/17 06:00 Respiratory Rate 20 11/13/17 06:00 Blood Pressure 142/80 11/13/17 06:00 O2 Sat by Pulse Oximetry (%) 100 11/12/17 21:00 Cardiovascular: Yes: S1, S2 Respiratory: Yes: Regular, CTA Bilaterally Gastrointestinal: Yes: Normal Bowel Sounds, Soft Labs: CBC, BMP 11/10/17 06:15 11/12/17 06:00 INR, PTT INR 1.11 (0.82-1.09) 11/08/17 15:42 Problem List - Problems (1) Diabetic foot ulcer Assessment/Plan: -Right foot, 3rd toe partial amputation - Scheduled for tomorrow- NPO after midnight - Possible osteo - Elevated WBC, per podiatry conversation with ED MINING ANALYST, will hold off on antibiotics for now until after amputation - F/u blood cultures - F/u ID consult - had angiogram--stenois--repeat retrograde on Tuesday - will need amputation by podiatry Code(s): E11.621 - TYPE 2 DIABETES MELLITUS WITH FOOT ULCER; L97.509 - NON- PRESSURE CHRONIC ULCER OTH PRT UNSP FOOT W UNSP SEVERITY (2) Anemia Assessment/Plan: -Monitor Code(s): D64.9 - ANEMIA, UNSPECIFIED (3) Chronic kidney disease (CKD) Assessment/Plan: - Monitor electrolytes - Diabetic/sodium controlled diet - IVF Code(s): N18.9 - CHRONIC KIDNEY DISEASE, UNSPECIFIED Qualifiers: Chronic kidney disease stage: stage 3 (moderate) Qualified Code(s): N18.3 - Chronic kidney disease, stage 3 (moderate) (4) Diabetes mellitus Assessment/Plan: - the patient has uncontrolled DM, will give Levemir tonight. Monitor BGM - BGM ACHS - ISS ACHS - Endo Code(s): E11.9 - TYPE 2 DIABETES MELLITUS WITHOUT COMPLICATIONS Qualifiers: Diabetes mellitus type: type 1 Diabetes mellitus complication status: with unspecified complications Qualified Code(s): E10.8 - Type 1 diabetes mellitus with unspecified complications (5) Foot ulcer Code(s): L97.509 - NON-PRESSURE CHRONIC ULCER OTH PRT UNSP FOOT W UNSP SEVERITY Qualifiers: Laterality: right Non-pressure ulcer stage: with fat layer exposed Qualified Code(s): L97.512 - Non-pressure chronic ulcer of other part of right foot with fat layer exposed (6) HTN (hypertension) Assessment/Plan: -Stable Code(s): I10 - ESSENTIAL (PRIMARY) HYPERTENSION Qualifiers:
[2017-11-13 09:16] LABS: BASO % 0.8 % (0-2.0); EOS % 4.8 % (0-4.5); HEMATOCRIT 34.3 % (35.4-49); HEMOGLOBIN 11.5 GM/dL (11.7-16.9); LYMPH % 13.9 % (8-40); MCHC 33.5 g/dl (32.0-35.9); MEAN CELL VOLUME 77.6 fl (80-96); MEAN PLT VOLUME 8.4 fl (7.5-11.1); MONO % 6.2 % (3.8-10.2); NEUT % 74.3 % (42.8-82.8); PLATELET COUNT 266 K/MM3 (134-434); RBC 4.42 M/mm3 (4.00-5.60); RDW 14.1 % (11.9-15.9); WHITE BLOOD COUNT 8.9 K/mm3 (4.0-10.0)
[2017-11-13] MEDS: amLODIPine BESYLATE 5 MG TABLET (FP) PO SCH (09:37)
[2017-11-13] MEDS: TAMSULOSIN HCL 0.4 MG CAP.ER.24H (FP) PO SCH (09:37)
[2017-11-13] MEDS: PANTOPRAZOLE 40 MG TABLET (FP) PO SCH (09:37)
[2017-11-13] MEDS: MULTIVITAMINS (DAILY MVI) TABLET (FP) PO SCH (09:38)
[2017-11-13 09:45] LABS: CHLORIDE 107 mmol/L (98-107); POTASSIUM 4.3 mmol/L (3.5-5.1); SODIUM 140 mmol/L (136-145)
[2017-11-13 09:51] LABS: ALBUMIN 3.3 g/dl (3.4-5.0); ALK PHOS 147 U/L (45-117); ANION GAP 8 (8-16); BILIRUBIN,TOTAL 0.5 mg/dL (0.2-1.0); BLOOD UREA NITROGEN 19 mg/dL (7-18); CO2 25 mmol/L (21-32); CREATININE 1.2 mg/dL (0.7-1.3); GLUCOSE,RANDOM 161 mg/dL (74-106); SGOT/AST 12 U/L (15-37); SGPT/ALT 15 U/L (12-78); TOT PROT 7.5 g/dl (6.4-8.2)
--- NOTE | 2017-11-13 10:00 | PN ---
Progress Note (short form) - Note Progress Note: RENAL Pt is awake and alert denies complaints Last Vital Signs Temp Pulse Resp BP Pulse Ox 97.8 F 87 20 142/80 100 11/13/17 06:00 11/13/17 06:00 11/13/17 06:00 11/13/17 06:00 11/12/17 21:00 lungs clear cvs s1s2 rr abd soft ext no edema, has TMA neuro a+ox3 CBC, BMP 11/13/17 08:45 11/13/17 08:45 Current Medications Generic Name Dose Route Start Last Admin Trade Name Freq PRN Reason Stop Dose Admin Amlodipine Besylate 5 mg 11/12/17 10:00 11/13/17 09:37 Norvasc - PO 5 mg DAILY [facility] Administration Atorvastatin Calcium 40 mg 11/11/17 22:00 11/12/17 21:44 Lipitor - PO 40 mg HS [facility] Administration Fentanyl 25 mcg 11/11/17 16:24 Sublimaze Injection - IVPUSH [id number] PRN PAIN-PACU ORDER X 4 DOSES ONLY Heparin Sodium (Porcine) 5,000 unit 11/11/17 22:00 11/13/17 06:08 Heparin - SQ 5,000 unit TID [facility] Administration Sodium Chloride 1,000 mls @ 75 mls/hr 11/11/17 17:18 11/13/17 01:29 Normal Saline - IV 75 mls/hr ASDIR [facility] Administration Vancomycin HCl 1,000 mg/ 250 mls @ 166.667 mls/hr 11/12/17 13:00 11/12/17 14: 35 Sodium Chloride IVPB 166.667 mls/hr DAILY@1300 [facility] Administration Protocol Cefepime HCl 1 gm/ Sodium 100 mls @ 200 mls/hr 11/12/17 18:00 11/13/17 09:37 Chloride IVPB 200 mls/hr Q8H-IV [facility] Administration Insulin Aspart 1 vial 11/11/17 22:00 11/13/17 06:08 Novolog Vial Sliding Scale - SQ 5 units ACHS [facility] Administration Protocol Insulin Detemir 25 units 11/11/17 22:00 11/13/17 06:09 Levemir Vial SQ 25 units BID@0700,2200 [facility] Administration Multivitamins/Minerals/Vitamin C 1 tab 11/12/17 10:00 11/13/17 09:38 Tab-A-Vit - PO 1 tab DAILY [facility] Administration Ondansetron HCl 4 mg 11/11/17 16:24 Zofran Injection IVPUSH Q6H PRN NAUSEA AND/OR VOMITING Pantoprazole Sodium 40 mg 11/12/17 10:00 11/13/17 09:37 Protonix - PO 40 mg DAILY [facility] Administration Tamsulosin HCl 0.4 mg 11/12/17 08:30 11/13/17 09:37 Flomax - PO 0.4 mg DAILY@0830 [facility] Administration IMPRESSION Impression 1. CKD- renal function stable 2. DFU 3. HTN 4. DM - poorly controlled 5. hx proteinuria 6. hyperlipidemia Plan - no changes, monitor renal function - vanco per trough - cont fluids - vascular and podiatry follow up [facility]
[2017-11-13] MEDS: VANCOMYCIN 1,000 MG in SODIUM CHLORIDE 250 ML IVPB SCH (14:32)
[2017-11-13] MEDS: ATORVASTATIN CA 40 MG TABLET (FP) PO SCH (21:12)
[2017-11-14] MEDS: CEFEPIME 1 GM in SODIUM CHLORIDE 100 ML IVPB SCH ×3 (02:28→17:32)
[2017-11-14] MEDS: HEPARIN NA (PORCINE) 5,000 UNITS/ML 1ML VIAL SQ SCH ×3 (06:05→21:08)
[2017-11-14] MEDS: INSULIN (LEVEMIR) 100 UNITS/ML UNITS SQ SCH ×2 (06:05→21:06)
[2017-11-14] MEDS: INSULIN SLIDING SCALE (NOVOLOG) 1 VIAL SQ SCH ×4 (06:06→21:04)
[2017-11-14 07:44] LABS: BASO % 0.7 % (0-2.0); EOS % 5.4 % (0-4.5); HEMATOCRIT 30.4 % (35.4-49); HEMOGLOBIN 10.4 GM/dL (11.7-16.9); LYMPH % 13.9 % (8-40); MCH 26.5 pg (25.7-33.7); MCHC 34.3 g/dl (32.0-35.9); MEAN CELL VOLUME 77.1 fl (80-96); MEAN PLT VOLUME 8.4 fl (7.5-11.1); MONO % 6.9 % (3.8-10.2); NEUT % 73.1 % (42.8-82.8); PLATELET COUNT 235 K/MM3 (134-434); RBC 3.94 M/mm3 (4.00-5.60); RDW 14.1 % (11.9-15.9); WHITE BLOOD COUNT 7.8 K/mm3 (4.0-10.0)
[2017-11-14 08:10] LABS: ALK PHOS 134 U/L (45-117); ANION GAP 6 (8-16); BILIRUBIN,TOTAL 0.5 mg/dL (0.2-1.0); BLOOD UREA NITROGEN 19 mg/dL (7-18); CALCIUM 8.6 mg/dL (8.5-10.1); CHLORIDE 108 mmol/L (98-107); CO2 26 mmol/L (21-32); GLUCOSE,RANDOM 188 mg/dL (74-106); POTASSIUM 4.1 mmol/L (3.5-5.1); SGOT/AST 13 U/L (15-37); SGPT/ALT 17 U/L (12-78); SODIUM 140 mmol/L (136-145); TOT PROT 6.9 g/dl (6.4-8.2)
[2017-11-14] MEDS ORDERED: PT OWN MED DRAWER 7, Y5N ONE ×3 (09:50→17:28)
[2017-11-14] MEDS: TAMSULOSIN HCL 0.4 MG CAP.ER.24H (FP) PO SCH (09:58)
[2017-11-14] MEDS: PANTOPRAZOLE 40 MG TABLET (FP) PO SCH (09:58)
[2017-11-14] MEDS: MULTIVITAMINS (DAILY MVI) TABLET (FP) PO SCH (09:58)
[2017-11-14] MEDS: amLODIPine BESYLATE 5 MG TABLET (FP) PO SCH (09:58)
--- NOTE | 2017-11-14 10:15 | PN ---
Progress Note (short form) - Note Progress Note: Podiatry F/U: Seen/evaluated at bedside, in good spirits, nad. Denies F/V/N/C/SOB/CP. afebrile, VSS. Going for repeat angiogram with stent today. SMITHA: R foot: dorsal IPJ diabetic ulcer third toe with exposed bone, no purulence, no fluctuance, no streaking cellulitis, moderate periwound erythema, no soft tissue crepitus. Mild tenderness to palpation with ROM. Imp: 57 year old IDDM M with R 3rd toe ulcer, exposed bone, clinical osteomyelitis 1. IV abx 2. Local wound care 3. Discussed case in length with Dr. Nuno. Plan for RLE retrograde stent today with Dr. Nuno. Will have third toe partial amputation tomorrow. 4. NPO at midnight. 5. Will closely follow. Lisa Byrd DPM
[2017-11-14] MEDS: VANCOMYCIN 1,000 MG in SODIUM CHLORIDE 250 ML IVPB SCH (12:08)
--- NOTE | 2017-11-14 12:14 | PN ---
Progress Note, Physician Chief Complaint: patient is NPO going for retrograde popliteal stent today and will get partial toe amputation Tommorow - Current Medication List Current Medications: Active Medications Amlodipine Besylate (Norvasc -) 5 mg PO DAILY [facility] Last Admin: 11/14/17 09:58 Dose: 5 mg Atorvastatin Calcium (Lipitor -) 40 mg PO HS [facility] Last Admin: 11/13/17 21:12 Dose: 40 mg Fentanyl (Sublimaze Injection -) 25 mcg IVPUSH [id number] PRN PRN Reason: PAIN-PACU ORDER X 4 DOSES ONLY Heparin Sodium (Porcine) (Heparin -) 5,000 unit SQ TID [facility] Last Admin: 11/14/17 06:05 Dose: Not Given Vancomycin HCl 1,000 mg/ (Sodium Chloride) 250 mls @ 166.667 mls/hr IVPB DAILY@ 1300 [facility] PRN Reason: Protocol Last Admin: 11/14/17 12:08 Dose: 166.667 mls/hr Cefepime HCl 1 gm/ Sodium (Chloride) 100 mls @ 200 mls/hr IVPB Q8H-IV [facility] Last Admin: 11/14/17 09:57 Dose: 200 mls/hr Insulin Aspart (Novolog Vial Sliding Scale -) 1 vial SQ ACHS [facility] PRN Reason: Protocol Last Admin: 11/14/17 11:34 Dose: Not Given Insulin Detemir (Levemir Vial) 25 units SQ BID@0700,2200 [facility] Last Admin: 11/14/17 06:05 Dose: Not Given Multivitamins/Minerals/Vitamin C (Tab-A-Vit -) 1 tab PO DAILY [facility] Last Admin: 11/14/17 09:58 Dose: 1 tab Ondansetron HCl (Zofran Injection) 4 mg IVPUSH Q6H PRN PRN Reason: NAUSEA AND/OR VOMITING Pantoprazole Sodium (Protonix -) 40 mg PO DAILY [facility] Last Admin: 11/14/17 09:58 Dose: 40 mg Tamsulosin HCl (Flomax -) 0.4 mg PO DAILY@0830 [facility] Last Admin: 11/14/17 09:58 Dose: 0.4 mg - Objective Vital Signs: Vital Signs Temperature 98.3 F 11/14/17 06:28 Pulse Rate 80 11/14/17 06:28 Respiratory Rate 20 11/14/17 06:28 Blood Pressure 152/90 11/14/17 06:28 O2 Sat by Pulse Oximetry (%) 98 11/13/17 21:00 Constitutional: Yes: Calm Neck: Yes: Trachea Midline Cardiovascular: Yes: Regular Rate and Rhythm, S1, S2 Respiratory: Yes: CTA Bilaterally Gastrointestinal: Yes: Normal Bowel Sounds, Soft Extremities: Yes: Other (wrapped in dressing right foot left TMA) Neurological: Yes: Alert, Oriented Labs: CBC, BMP 11/14/17 07:02 11/14/17 06:15 INR, PTT INR 1.11 (0.82-1.09) 11/08/17 15:42 Problem List - Problems (1) Diabetic foot ulcer Assessment/Plan: abx per ID zosyn allergy to go for retrograde popliteal stent placement today followed by amputation tmw ivf hydration Code(s): E11.621 - TYPE 2 DIABETES MELLITUS WITH FOOT ULCER; L97.509 - NON- PRESSURE CHRONIC ULCER OTH PRT UNSP FOOT W UNSP SEVERITY (2) Chronic kidney disease (CKD) Assessment/Plan: ivf cr decreasing renal consult Code(s): N18.9 - CHRONIC KIDNEY DISEASE, UNSPECIFIED Qualifiers: Chronic kidney disease stage: stage 3 (moderate) Qualified Code(s): N18.3 - Chronic kidney disease, stage 3 (moderate) (3) PVD (peripheral vascular disease) Assessment/Plan: to get angiogram retrograde stent placement today NPO tonight for partial toe amputation tmw ivf Code(s): I73.9 - PERIPHERAL VASCULAR DISEASE, UNSPECIFIED
[2017-11-14] MEDS ORDERED: HEPARIN NA (PORCINE) 5,000 UNITS/ML 1ML VIAL ONE (12:44)
[2017-11-14] MEDS ORDERED: LIDOCAINE HCL 1%, 10 MG/ML (20ML VIAL) ONE (12:45)
[2017-11-14] MEDS ORDERED: LIDOCAINE HCL 1%, 10 MG/ML (20ML VIAL) NR ONE ×2 (13:38)
[2017-11-14] MEDS ORDERED: HEPARIN NA (PORCINE) 5,000 UNITS/ML 1ML VIAL SQ ONE (13:40)
[2017-11-14] MEDS ORDERED: PROTAMINE SULFATE 50 MG/5 ML VIAL ONE (13:58)
--- NOTE | 2017-11-14 14:52 | OP ---
Operative Note - Note: Operative Date: 11/14/17 Pre-Operative Diagnosis: right toe gangrene Operation: RLE angiogram, SFA angioplasty with stent placement. Findings: sfa occlusion Post-Operative Diagnosis: Same as Pre-op Surgeon: Guerrero Nuno Anesthesia: Fractional Estimated Blood Loss (mls): 50 Operative Report Dictated: Yes
[2017-11-14] MEDS ORDERED: ONDANSETRON 4 MG/2 ML VIAL IVPUSH PRN (15:34)
[2017-11-14] MEDS: CLOPIDOGREL BISULFATE 75 MG TABLET (FP) PO SCH (16:55)
--- NOTE | 2017-11-14 20:40 | PN ---
Progress Note, Physician Chief Complaint: in bed comfortable History of Present Illness: dm iddm hyperglycemia,pad right foot pain and gangrene vascular supply procedure - Current Medication List Current Medications: Active Medications Amlodipine Besylate (Norvasc -) 5 mg PO DAILY [facility] Atorvastatin Calcium (Lipitor -) 40 mg PO HS [facility] Clopidogrel Bisulfate (Plavix -) 75 mg PO DAILY [facility] Last Admin: 11/14/17 16:55 Dose: 75 mg Fentanyl (Sublimaze Injection -) 25 mcg IVPUSH [id number] PRN PRN Reason: PAIN-PACU ORDER X 4 DOSES ONLY Heparin Sodium (Porcine) (Heparin -) 5,000 unit SQ TID [facility] Cefepime HCl 1 gm/ Sodium (Chloride) 100 mls @ 200 mls/hr IVPB Q8H-IV [facility] Last Admin: 11/14/17 17:32 Dose: 200 mls/hr Vancomycin HCl 1,000 mg/ (Sodium Chloride) 250 mls @ 166.667 mls/hr IVPB DAILY@ 1300 [facility] PRN Reason: Protocol Insulin Aspart (Novolog Vial Sliding Scale -) 1 vial SQ ACHS [facility] PRN Reason: Protocol Last Admin: 11/14/17 16:54 Dose: 2 units Insulin Detemir (Levemir Vial) 25 units SQ BID@0700,2200 [facility] Multivitamins/Minerals/Vitamin C (Tab-A-Vit -) 1 tab PO DAILY [facility] Ondansetron HCl (Zofran Injection) 4 mg IVPUSH Q6H PRN PRN Reason: NAUSEA AND/OR VOMITING Pantoprazole Sodium (Protonix -) 40 mg PO DAILY [facility] Tamsulosin HCl (Flomax -) 0.4 mg PO DAILY@0830 [facility] - Objective Vital Signs: Vital Signs Temperature 98.7 F 11/14/17 16:33 Pulse Rate 84 11/14/17 16:33 Respiratory Rate 18 11/14/17 16:33 Blood Pressure 147/78 11/14/17 16:33 O2 Sat by Pulse Oximetry (%) 97 11/14/17 16:33 Constitutional: Yes: Calm Eyes: Yes: EOM Intact HENT: Yes: Normocephalic Neck: Yes: Trachea Midline Respiratory: Yes: CTA Bilaterally Gastrointestinal: Yes: Normal Bowel Sounds ...Rectal Exam: Yes: Deferred Peripheral Pulses: Right Femoral: 1+ Integumentary: Yes: Onychomycosis Neurological: Yes: Alert, Oriented Labs: CBC, BMP 11/14/17 07:02 11/14/17 06:15 INR, PTT INR 1.11 (0.82-1.09) 11/08/17 15:42 Problem List - Problems (1) Controlled diabetes mellitus with diabetic peripheral angiopathy without gangrene, without long-term current 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 Code(s): E11.51 - TYPE 2 DIABETES W DIABETIC PERIPHERAL ANGIOPATH W/O GANGRENE (2) Diabetic foot ulcer Code(s): E11.621 - TYPE 2 DIABETES MELLITUS WITH FOOT ULCER; L97.509 - NON- PRESSURE CHRONIC ULCER OTH PRT UNSP FOOT W UNSP SEVERITY (3) Preop cardiovascular exam Code(s): Z01.810 - ENCOUNTER FOR PREPROCEDURAL CARDIOVASCULAR EXAMINATION (4) Abnormal liver enzymes Code(s): R74.8 - ABNORMAL LEVELS OF OTHER SERUM ENZYMES (5) Abscess of plantar aspect of foot Code(s): L02.619 - CUTANEOUS ABSCESS OF UNSPECIFIED FOOT (6) Acute gastroenteritis Code(s): K52.9 - NONINFECTIVE GASTROENTERITIS AND COLITIS, UNSPECIFIED (7) Acute on chronic renal failure Code(s): N17.9 - ACUTE KIDNEY FAILURE, UNSPECIFIED; N18.9 - CHRONIC KIDNEY DISEASE, UNSPECIFIED Qualifiers: Acute renal failure type: unspecified Chronic kidney disease stage: unspecified stage Qualified Code(s): N17.9 - Acute kidney failure, unspecified ; N18.9 - Chronic kidney disease, unspecified; N18.9 - Chronic kidney disease, unspecified Assessment/Plan Current Active Problems Controlled diabetes mellitus with diabetic peripheral angiopathy without gangrene, without long-term current 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 (Acute) Diabetic foot ulcer (Acute) Preop cardiovascular exam (Acute) Abnormal Lab Results 11/14/17 11/14/17 06:15 07:02 RBC 3.94 L Hgb 10.4 L Hct 30.4 L MCV 77.1 L Eosinophils % 5.4 H Chloride 108 H Anion Gap 6 L BUN 19 H Random Glucose 188 H AST 13 L Alkaline Phosphatase 134 H Albumin 3.0 L Laboratory Results - last 24 hr 11/13/17 11/14/17 11/14/17 20:40 06:04 06:15 WBC RBC Hgb Hct MCV MCH MCHC RDW Plt Count MPV Neutrophils % Lymphocytes % Monocytes % Eosinophils % Basophils % Sodium 140 Potassium 4.1 Chloride 108 H Carbon Dioxide 26 Anion Gap 6 L BUN 19 H Creatinine 1.0 Creat Clearance w eGFR > 60 POC Glucometer 251 189 Random Glucose 188 H Calcium 8.6 Total Bilirubin 0.5 AST 13 L ALT 17 Alkaline Phosphatase 134 H Total Protein 6.9 Albumin 3.0 L 11/14/17 07:02 WBC 7.8 RBC 3.94 L Hgb 10.4 L Hct 30.4 L MCV 77.1 L MCH 26.5 MCHC 34.3 RDW 14.1 Plt Count 235 MPV 8.4 Neutrophils % 73.1 Lymphocytes % 13.9 Monocytes % 6.9 Eosinophils % 5.4 H Basophils % 0.7 Sodium Potassium Chloride Carbon Dioxide Anion Gap BUN Creatinine Creat Clearance w eGFR POC Glucometer Random Glucose Calcium Total Bilirubin AST ALT Alkaline Phosphatase Total Protein Albumin Laboratory Tests 11/13/17 11/13/17 11/13/17 06:07 11:37 17:36 POC Glucometer 208 192 191 11/13/17 11/14/17 20:40 06:04 POC Glucometer 251 189 plan: levemir doses adjusted levemir 27 units bid
[2017-11-14] MEDS ORDERED: INSULIN (LEVEMIR) 100 UNITS/ML UNITS SQ SCH (22:00)
[2017-11-14] MEDS ORDERED: ATORVASTATIN CA 40 MG TABLET (FP) PO SCH (22:00)
[2017-11-15] MEDS: CEFEPIME 1 GM in SODIUM CHLORIDE 100 ML IVPB SCH ×4 (03:13→17:53)
[2017-11-15] MEDS: INSULIN SLIDING SCALE (NOVOLOG) 1 VIAL SQ SCH ×4 (06:13→21:04)
[2017-11-15] MEDS: INSULIN (LEVEMIR) 100 UNITS/ML UNITS SQ SCH ×3 (06:15→21:04)
[2017-11-15] MEDS: HEPARIN NA (PORCINE) 5,000 UNITS/ML 1ML VIAL SQ SCH ×4 (06:16→21:04)
[2017-11-15] MEDS ORDERED: TAMSULOSIN HCL 0.4 MG CAP.ER.24H (FP) PO SCH (08:30)
[2017-11-15] MEDS ORDERED: PT OWN MED DRAWER 7, Y5N ONE ×2 (09:14→17:43)
[2017-11-15] MEDS: CLOPIDOGREL BISULFATE 75 MG TABLET (FP) PO SCH (09:17)
--- NOTE | 2017-11-15 09:32 | PN ---
Progress Note, Physician - Current Medication List Current Medications: Active Medications Amlodipine Besylate (Norvasc -) 5 mg PO DAILY [facility] Last Admin: 11/15/17 09:22 Dose: 5 mg Atorvastatin Calcium (Lipitor -) 40 mg PO HS [facility] Last Admin: 11/14/17 21:07 Dose: 40 mg Clopidogrel Bisulfate (Plavix -) 75 mg PO DAILY [facility] Last Admin: 11/15/17 09:17 Dose: Not Given Fentanyl (Sublimaze Injection -) 25 mcg IVPUSH [id number] PRN PRN Reason: PAIN-PACU ORDER X 4 DOSES ONLY Heparin Sodium (Porcine) (Heparin -) 5,000 unit SQ TID [facility] Last Admin: 11/15/17 06:20 Dose: Not Given Cefepime HCl 1 gm/ Sodium (Chloride) 100 mls @ 200 mls/hr IVPB Q8H-IV [facility] Last Admin: 11/15/17 09:22 Dose: 200 mls/hr Vancomycin HCl 1,000 mg/ (Sodium Chloride) 250 mls @ 166.667 mls/hr IVPB DAILY@ 1300 [facility] PRN Reason: Protocol Insulin Aspart (Novolog Vial Sliding Scale -) 1 vial SQ ACHS [facility] PRN Reason: Protocol Last Admin: 11/15/17 06:13 Dose: 5 units Insulin Detemir (Levemir Vial) 27 units SQ BID@0700,2200 [facility] Last Admin: 11/15/17 06:22 Dose: Not Given Multivitamins/Minerals/Vitamin C (Tab-A-Vit -) 1 tab PO DAILY [facility] Last Admin: 11/15/17 09:22 Dose: 1 tab Ondansetron HCl (Zofran Injection) 4 mg IVPUSH Q6H PRN PRN Reason: NAUSEA AND/OR VOMITING Pantoprazole Sodium (Protonix -) 40 mg PO DAILY [facility] Last Admin: 11/15/17 09:22 Dose: 40 mg Tamsulosin HCl (Flomax -) 0.4 mg PO DAILY@0830 [facility] Last Admin: 11/15/17 09:22 Dose: 0.4 mg - Objective Vital Signs: Vital Signs Temperature 98.6 F 11/15/17 06:00 Pulse Rate 79 11/15/17 06:00 Respiratory Rate 20 11/15/17 06:00 Blood Pressure 150/84 11/15/17 06:00 O2 Sat by Pulse Oximetry (%) 97 11/14/17 21:00 Labs: CBC, BMP 11/14/17 07:02 11/14/17 06:15 INR, PTT INR 1.11 (0.82-1.09) 11/08/17 15:42 Problem List - Problems (1) Diabetic foot ulcer Assessment/Plan: abx per ID zosyn allergy to go for retrograde popliteal stent placement today followed by amputation tmw ivf hydration - Note: Operative Date: 11/14/17 Pre-Operative Diagnosis: right toe gangrene Operation: RLE angiogram, SFA angioplasty with stent placement. Findings: sfa occlusion Post-Operative Diagnosis: Same as Pre-op Surgeon: Guerrero Nuno Anesthesia: Fractional Estimated Blood Loss (mls): 50 Operative Report Dictated: Yes Code(s): E11.621 - TYPE 2 DIABETES MELLITUS WITH FOOT ULCER; L97.509 - NON- PRESSURE CHRONIC ULCER OTH PRT UNSP FOOT W UNSP SEVERITY (2) Chronic kidney disease (CKD) Code(s): N18.9 - CHRONIC KIDNEY DISEASE, UNSPECIFIED Qualifiers: Chronic kidney disease stage: stage 3 (moderate) Qualified Code(s): N18.3 - Chronic kidney disease, stage 3 (moderate) (3) PVD (peripheral vascular disease) Code(s): I73.9 - PERIPHERAL VASCULAR DISEASE, UNSPECIFIED
[2017-11-15] MEDS ORDERED: amLODIPine BESYLATE 5 MG TABLET (FP) PO SCH (10:00)
[2017-11-15] MEDS ORDERED: MULTIVITAMINS (DAILY MVI) TABLET (FP) PO SCH (10:00)
[2017-11-15] MEDS ORDERED: PANTOPRAZOLE 40 MG TABLET (FP) PO SCH (10:00)
--- NOTE | 2017-11-15 10:19 | PN ---
Progress Note, Physician Chief Complaint: patient is NPO awaiting to go to OR today for partial toe amputation - Current Medication List Current Medications: Active Medications Amlodipine Besylate (Norvasc -) 5 mg PO DAILY [facility] Last Admin: 11/15/17 09:22 Dose: 5 mg Atorvastatin Calcium (Lipitor -) 40 mg PO HS [facility] Last Admin: 11/14/17 21:07 Dose: 40 mg Clopidogrel Bisulfate (Plavix -) 75 mg PO DAILY [facility] Last Admin: 11/15/17 09:17 Dose: Not Given Fentanyl (Sublimaze Injection -) 25 mcg IVPUSH [id number] PRN PRN Reason: PAIN-PACU ORDER X 4 DOSES ONLY Heparin Sodium (Porcine) (Heparin -) 5,000 unit SQ TID [facility] Last Admin: 11/15/17 06:20 Dose: Not Given Cefepime HCl 1 gm/ Sodium (Chloride) 100 mls @ 200 mls/hr IVPB Q8H-IV [facility] Last Admin: 11/15/17 09:22 Dose: 200 mls/hr Vancomycin HCl 1,000 mg/ (Sodium Chloride) 250 mls @ 166.667 mls/hr IVPB DAILY@ 1300 [facility] PRN Reason: Protocol Insulin Aspart (Novolog Vial Sliding Scale -) 1 vial SQ ACHS [facility] PRN Reason: Protocol Last Admin: 11/15/17 06:13 Dose: 5 units Insulin Detemir (Levemir Vial) 27 units SQ BID@0700,2200 [facility] Last Admin: 11/15/17 06:22 Dose: Not Given Multivitamins/Minerals/Vitamin C (Tab-A-Vit -) 1 tab PO DAILY [facility] Last Admin: 11/15/17 09:22 Dose: 1 tab Ondansetron HCl (Zofran Injection) 4 mg IVPUSH Q6H PRN PRN Reason: NAUSEA AND/OR VOMITING Pantoprazole Sodium (Protonix -) 40 mg PO DAILY [facility] Last Admin: 11/15/17 09:22 Dose: 40 mg Tamsulosin HCl (Flomax -) 0.4 mg PO DAILY@0830 [facility] Last Admin: 11/15/17 09:22 Dose: 0.4 mg - Objective Vital Signs: Vital Signs Temperature 98.6 F 11/15/17 06:00 Pulse Rate 79 11/15/17 06:00 Respiratory Rate 20 11/15/17 06:00 Blood Pressure 150/84 11/15/17 06:00 O2 Sat by Pulse Oximetry (%) 97 11/14/17 21:00 Constitutional: Yes: Calm Neck: Yes: Trachea Midline Cardiovascular: Yes: Regular Rate and Rhythm, S1, S2 Respiratory: Yes: CTA Bilaterally Gastrointestinal: Yes: Normal Bowel Sounds, Soft Musculoskeletal: Yes: Other (left foot tma right foot) Edema: No Neurological: Yes: Alert, Oriented Labs: CBC, BMP 11/14/17 07:02 11/14/17 06:15 INR, PTT INR 1.11 (0.82-1.09) 11/08/17 15:42 Problem List - Problems (1) Diabetic foot ulcer Assessment/Plan: today patient is NPO to go to OR for partial toe amputation Operative Date: 11/14/17 Pre-Operative Diagnosis: right toe gangrene Operation: RLE angiogram, SFA angioplasty with stent placement. Findings: sfa occlusion Post-Operative Diagnosis: Same as Pre-op Surgeon: Guerrero Nuno Anesthesia: Fractional Estimated Blood Loss (mls): 50 Operative Report Dictated: Yes vancomycin and cefepime Code(s): E11.621 - TYPE 2 DIABETES MELLITUS WITH FOOT ULCER; L97.509 - NON- PRESSURE CHRONIC ULCER OTH PRT UNSP FOOT W UNSP SEVERITY (2) Chronic kidney disease (CKD) Assessment/Plan: ivf cr decreasing now much improved Code(s): N18.9 - CHRONIC KIDNEY DISEASE, UNSPECIFIED Qualifiers: Chronic kidney disease stage: stage 3 (moderate) Qualified Code(s): N18.3 - Chronic kidney disease, stage 3 (moderate) (3) PVD (peripheral vascular disease) Assessment/Plan: s/p retrograde stent placement Code(s): I73.9 - PERIPHERAL VASCULAR DISEASE, UNSPECIFIED (4) Uncontrolled diabetes mellitus Assessment/Plan: seen by endocrine [id number] noted levemir dose adjusted Code(s): E11.65 - TYPE 2 DIABETES MELLITUS WITH HYPERGLYCEMIA Qualifiers: Diabetes mellitus type: type 2 Diabetes mellitus complication detail: with other circulatory complications
[2017-11-15] MEDS ORDERED: VANCOMYCIN 1,000 MG in SODIUM CHLORIDE 250 ML IVPB SCH (13:00)
[2017-11-15] MEDS ORDERED: MIDAZOLAM HCL 2 MG/2 ML SINGLE DOSE VIAL ONE ×2 (15:03)
[2017-11-15] MEDS ORDERED: LIDOCAINE HCL 1%, 10 MG/ML (20ML VIAL) ONE (15:07)
[2017-11-15] MEDS ORDERED: LIDOCAINE HCL 1%, 10 MG/ML (20ML VIAL) INF ONE (15:37)
[2017-11-15] MEDS ORDERED: ONDANSETRON 4 MG/2 ML VIAL IVPUSH PRN ×2 (15:58→16:19)
[2017-11-15] MEDS ORDERED: PROMETHAZINE HCL 25 MG/1 ML VIAL IVPUSH PRN (15:58)
[2017-11-15] MEDS ORDERED: oxyCODONE HCL 5 MG TABLET PO PRN ×2 (15:58→16:19)
[2017-11-15] MEDS ORDERED: LACTATED RINGERS SOLUTION 1,000 ML IV SCH ×2 (16:00→16:19)
--- NOTE | 2017-11-15 16:00 | OP ---
Operative Note - Note: Operative Date: 11/15/17 Pre-Operative Diagnosis: Osteomyelitis right third toe Operation: Partial amputation right third toe Post-Operative Diagnosis: Same as Pre-op Surgeon: Antonio Byrd Anesthesia: Local, MAC Specimens Removed: Bone right third toe Estimated Blood Loss (mls): 10 Operative Report Dictated: Yes
[2017-11-15] MEDS ORDERED: PROMETHAZINE HCL 25 MG/1 ML VIAL IVPB PRN (16:19)
--- NOTE | 2017-11-15 16:38 | OP ---
DATE OF OPERATION: 11/15/2017 PREOPERATIVE DIAGNOSIS: Osteomyelitis, right 3rd toe. POSTOPERATIVE DIAGNOSIS: Osteomyelitis, right 3rd toe. PROCEDURE: Right foot partial amputation of 3rd toe. SURGEON: Antonio Byrd DPM SOUND ENGINEER AUDIO CONTROL: , PGY-3, [facility]. ANESTHESIA: IV sedation with local. HEMOSTASIS: Surgical dissection. ESTIMATED BLOOD LOSS: 10 mL PATHOLOGY: Bone, right 3rd toe. Patient was brought to the operating room and placed on the operating table in the supine position. I elected to not use a tourniquet during the course of the procedure. Following the induction of IV sedation, local anesthesia was achieved utilizing 6 mL of 1% lidocaine plain. The right foot was scrubbed, prepped, and draped in the usual sterile fashion. Attention was directed to the right 3rd toe where a diabetic ulcer with exposed bone was visualized and appreciated. I began by performing a fishmouth incision overlying the ulcer at the level of the interphalangeal joint. The distal aspect of the 3rd toe was disarticulated at the level of the proximal interphalangeal joint and removed from the operative site. Next, the head of the proximal phalanx was resected utilizing a sagittal saw. This was sectioned for both bone culture and proximal bone pathology. An appropriate soft tissue culture was then obtained. The surgical site was copiously irrigated with sterile saline. The underlying flap tissue was noted to be viable and granular. The flap was brought dorsally and coapted nicely utilizing 4-0 nylon in a simple interrupted suture fashion. Following the conclusion of the procedure, the surgical site was covered with Xeroform, and a sterile compressive dressing was applied to the right foot consisting of sterile gauze, Omar, Kerlix, and an Rafa wrap. Patient tolerated the procedure and anesthesia well without complications. He was transferred from the operating room to the recovery unit with vital signs stable and neurovasculature intact to the right foot. PHILIP HAWKINS/[id number] cc: [facility]
[2017-11-15] MEDS ORDERED: INSULIN (LEVEMIR) 100 UNITS/ML UNITS SQ ONE (20:45)
[2017-11-15] MEDS ORDERED: INSULIN (NOVOLOG) ASPART 100 UNITS/ML 10ML VIAL ONE (20:45)
[2017-11-15] MEDS ORDERED: ATORVASTATIN CA 40 MG TABLET (FP) PO SCH (22:00)
--- NOTE | 2017-11-15 23:34 | PN ---
Progress Note (short form) - Note Progress Note: Anesthesia postop note 57 y/o M s/p MAC for angiogram POD#1, seen in holding area earlier today, vss, aaox3, no comppaints No anesthesia complications.
[2017-11-16] MEDS: CEFEPIME 1 GM in SODIUM CHLORIDE 100 ML IVPB SCH ×2 (01:28→09:48)
[2017-11-16] MEDS: HEPARIN NA (PORCINE) 5,000 UNITS/ML 1ML VIAL SQ SCH ×2 (06:16→14:14)
[2017-11-16] MEDS: INSULIN (LEVEMIR) 100 UNITS/ML UNITS SQ SCH (07:15)
[2017-11-16] MEDS: INSULIN SLIDING SCALE (NOVOLOG) 1 VIAL SQ SCH ×2 (07:15→11:23)
[2017-11-16] MEDS ORDERED: INSULIN (NOVOLOG) ASPART 100 UNITS/ML 10ML VIAL ONE (07:20)
[2017-11-16] MEDS ORDERED: TAMSULOSIN HCL 0.4 MG CAP.ER.24H (FP) PO SCH (08:30)
--- NOTE | 2017-11-16 08:50 | PN ---
Progress Note (short form) - Note Progress Note: Anesthesia postop note 57 y/o M s/p MAC for amputation of 3rd toe. POD#1, vss, aaox3, no complaints. No anesthesia complications.
[2017-11-16] MEDS ORDERED: PT OWN MED DRAWER 7, Y5N ONE (09:38)
[2017-11-16] MEDS ORDERED: PANTOPRAZOLE 40 MG TABLET (FP) PO SCH (10:00)
[2017-11-16] MEDS ORDERED: MULTIVITAMINS (DAILY MVI) TABLET (FP) PO SCH (10:00)
[2017-11-16] MEDS ORDERED: CLOPIDOGREL BISULFATE 75 MG TABLET (FP) PO SCH (10:00)
[2017-11-16] MEDS ORDERED: amLODIPine BESYLATE 5 MG TABLET (FP) PO SCH (10:00)
--- NOTE | 2017-11-16 11:15 | PN ---
Progress Note (short form) - Note Progress Note: Podiatry F/U: Seen/evaluated at bedside, NAD. Pain controlled, denies F/V/N/C/SOB/CP. Afebrile, VSS. S/p R 3rd digit partial amputation POD#1. SMITHA: R foot: dressing C/D/I, no active bleeding. Sutures well coapted, no dehiscence. NO purulence, no fluctuance, mild periwound erythema, no ascending cellulitis, no signs of infection. Plantar midfoot Charcot ulcer strong granular base, no probing to bone, no purulence, no fluctuance, no cellulitis, no signs of infection. OR Cx: pending OR Path: pending Imp: 57 year old IDDM M s/p R 3rd digit partial amputation for clinical osteomyelitis POD#1 1. Discussed case with ID, will discharge on PO abx as I am confident all infected bone was subsequently removed. 2. Needs home nursing services for dressing change with collagen Ag to plantar midfoot diabetic ulcer, bactroban to surgical incision site, changed on Tuesday. I will have dressing changed as [facility] Will f/u with my care 11/22 in wound healing center. 3. Partial WB R heel with surgical offloading shoe. 4. Pod stable for d/c. Lisa Byrd DPM
--- NOTE | 2017-11-16 11:41 | PN ---
Progress Note, Physician History of Present Illness: Post op partial toe amputation Awake, alert No c/o foot pain No fever/ chills Tolerating antibiotics BC (-) WBC WNL - Current Medication List Current Medications: Active Medications Amlodipine Besylate (Norvasc -) 5 mg PO DAILY [facility] Last Admin: 11/16/17 09:47 Dose: 5 mg Atorvastatin Calcium (Lipitor -) 40 mg PO HS [facility] Last Admin: 11/15/17 21:05 Dose: 40 mg Clopidogrel Bisulfate (Plavix -) 75 mg PO DAILY [facility] Last Admin: 11/16/17 09:47 Dose: 75 mg Fentanyl (Sublimaze Injection -) 25 mcg IVPUSH [id number] PRN PRN Reason: PAIN-PACU ORDER X 4 DOSES ONLY Heparin Sodium (Porcine) (Heparin -) 5,000 unit SQ TID [facility] Last Admin: 11/16/17 06:16 Dose: 5,000 unit Cefepime HCl 1 gm/ Sodium (Chloride) 100 mls @ 200 mls/hr IVPB Q8H-IV [facility] Last Admin: 11/16/17 09:48 Dose: 200 mls/hr Lactated Ringer's (Lactated Ringers Solution) 1,000 mls @ 75 mls/hr IV ASDIR [facility] Last Admin: 11/15/17 16:30 Dose: 0 mls Vancomycin HCl 1,000 mg/ (Sodium Chloride) 250 mls @ 166.667 mls/hr IVPB DAILY@ 1300 [facility]; Protocol Insulin Aspart (Novolog Vial Sliding Scale -) 1 vial SQ ACHS [facility]; Protocol Last Admin: 11/16/17 11:23 Dose: 7 units Insulin Detemir (Levemir Vial) 27 units SQ BID@0700,2200 [facility] Last Admin: 11/16/17 07:15 Dose: 27 units Multivitamins/Minerals/Vitamin C (Tab-A-Vit -) 1 tab PO DAILY [facility] Last Admin: 11/16/17 09:47 Dose: 1 tab Ondansetron HCl (Zofran Injection) 4 mg IVPUSH Q6H PRN PRN Reason: NAUSEA AND/OR VOMITING Oxycodone HCl (Roxicodone -) 5 mg PO Q4H PRN PRN Reason: PAIN LEVEL 1-5 Stop: 11/16/17 15:57 Last Admin: 11/15/17 20:52 Dose: 5 mg Pantoprazole Sodium (Protonix -) 40 mg PO DAILY [facility] Last Admin: 11/16/17 09:47 Dose: 40 mg Promethazine HCl (Phenergan Injection -) 12.5 mg IVPB Q6H PRN PRN Reason: NAUSEA-FOR RESCUE AFTER 15 MIN Tamsulosin HCl (Flomax -) 0.4 mg PO DAILY@0830 [facility] Last Admin: 11/16/17 09:47 Dose: 0.4 mg - Objective Vital Signs: Vital Signs Temperature 99.2 F 11/16/17 06:00 Pulse Rate 87 11/16/17 06:00 Respiratory Rate 20 11/16/17 06:00 Blood Pressure 129/80 11/16/17 06:00 O2 Sat by Pulse Oximetry (%) 97 11/15/17 16:58 Constitutional: Yes: No Distress Eyes: Yes: Conjunctiva Clear Cardiovascular: Yes: Regular Rate and Rhythm, S1, S2 Respiratory: Yes: CTA Bilaterally Gastrointestinal: Yes: Normal Bowel Sounds, Soft, Tenderness Extremities: Yes: Other (Surgical wound examined with Dr. Byrd. Sutures intact) Labs: CBC, BMP 11/14/17 07:02 11/14/17 06:15 INR, PTT INR 1.11 (0.82-1.09) 11/08/17 15:42 Assessment/Plan Cellulitis/ osteomyelitis R 3rd toe S/P partial amputation Zosyn allergy Azotemia- improved Discussed with Dr Byrd Infected boner excised Will D/C IV antibiotics Substitute po antibiotics Clindamycin 300mg po q8h + Levaquin 500mg po qd x 7d Outpatient follow up Wound care center next week
--- NOTE | 2017-11-16 12:08 | DS ---
Physical Examination Vital Signs: Vital Signs Temperature 99.2 F 11/16/17 06:00 Pulse Rate 87 11/16/17 06:00 Respiratory Rate 20 11/16/17 06:00 Blood Pressure 129/80 11/16/17 06:00 O2 Sat by Pulse Oximetry (%) 97 11/15/17 16:58 Constitutional: Yes: Well Nourished, No Distress, Calm Cardiovascular: Yes: Regular Rate and Rhythm Gastrointestinal: Yes: Normal Bowel Sounds, Soft Musculoskeletal: Yes: WNL Edema: No Neurological: Yes: Alert, Oriented Psychiatric: Yes: Alert, Oriented Labs: CBC, BMP 11/14/17 07:02 11/14/17 06:15 Discharge Summary Reason For Visit: DIABETIC FOOT ULCER Current Active Problems Controlled diabetes mellitus with diabetic peripheral angiopathy without gangrene, without long-term current 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 (Acute) Diabetic foot ulcer (Acute) Preop cardiovascular exam (Acute) Hospital Course: This is a 57 year old male with PMHx DM, CKD, HTN, hyperlipidemia who was sent to the ED by his oxyacetylene burner, Dr. Byrd, for a right foot third toe partial amputation. The patient reports he has had multiple toe amputations in the past and has been following with Dr. Byrd in clinic for 6 years. The patient denies any fever or chills, chest pain, palpitations, nausea, vomiting, diarrhea , abdominal pain, dizziness, syncope, headache, urinary symptoms. Discharge on Clindamycin 300 mg po Q8h and levaquin 500 mg po daily for 7 days Condition: Good - Instructions Referrals: Darren Carr [Primary Care Provider] - Antonio Byrd MD [Staff Physician] - Disposition: VNS/HOME HEALTH CARE - Home Medications Comprehensive Discharge Medication List: Ambulatory Orders Atorvastatin Calcium 40 mg PO HS 08/10/16 Insulin Aspart [Novolog Flexpen] 22 units SQ TID 01/01/17 Insulin Degludec [Tresiba Flextouch U-100] 56 units SQ HS 01/01/17 Tamsulosin HCl [Flomax -] 0.4 mg PO DAILY 01/01/17 Aspirin Coated [Ecotrin -] 81 mg PO DAILY tablet.ec 07/20/17 Multivitamins [Multivit ([facility] Formulary)] 1 tab PO DAILY tab 07/20/17 Pantoprazole Sodium 40 mg PO DAILY 03/12/18 Metoprolol Tartrate 25 mg PO TID 11/08/17
[2017-11-16 12:35] VITALS: BP 130/68; PULSE 88; TEMP 99.7
[2017-11-16] MEDS ORDERED: VANCOMYCIN 1,000 MG in SODIUM CHLORIDE 250 ML IVPB SCH (13:00)
--- NOTE | 2017-11-16 13:28 | PN ---
Progress Note, Physician History of Present Illness: Pt seen and examined at bedside. He denies fevers or chills. He says he feels well. - Current Medication List Current Medications: Active Medications Amlodipine Besylate (Norvasc -) 5 mg PO DAILY [facility] Last Admin: 11/16/17 09:47 Dose: 5 mg Atorvastatin Calcium (Lipitor -) 40 mg PO HS [facility] Last Admin: 11/15/17 21:05 Dose: 40 mg Clindamycin HCl (Cleocin -) 300 mg PO TID [facility] Clopidogrel Bisulfate (Plavix -) 75 mg PO DAILY [facility] Last Admin: 11/16/17 09:47 Dose: 75 mg Fentanyl (Sublimaze Injection -) 25 mcg IVPUSH [id number] PRN PRN Reason: PAIN-PACU ORDER X 4 DOSES ONLY Heparin Sodium (Porcine) (Heparin -) 5,000 unit SQ TID [facility] Last Admin: 11/16/17 06:16 Dose: 5,000 unit Lactated Ringer's (Lactated Ringers Solution) 1,000 mls @ 75 mls/hr IV ASDIR [facility] Last Admin: 11/15/17 16:30 Dose: 0 mls Insulin Aspart (Novolog Vial Sliding Scale -) 1 vial SQ ACHS [facility]; Protocol Last Admin: 11/16/17 11:23 Dose: 7 units Insulin Detemir (Levemir Vial) 27 units SQ BID@0700,2200 [facility] Last Admin: 11/16/17 07:15 Dose: 27 units Levofloxacin (Levaquin -) 500 mg PO DAILY@0600 [facility] Last Admin: 11/16/17 12:52 Dose: 500 mg Multivitamins/Minerals/Vitamin C (Tab-A-Vit -) 1 tab PO DAILY [facility] Last Admin: 11/16/17 09:47 Dose: 1 tab Ondansetron HCl (Zofran Injection) 4 mg IVPUSH Q6H PRN PRN Reason: NAUSEA AND/OR VOMITING Oxycodone HCl (Roxicodone -) 5 mg PO Q4H PRN PRN Reason: PAIN LEVEL 1-5 Stop: 11/16/17 15:57 Last Admin: 11/15/17 20:52 Dose: 5 mg Pantoprazole Sodium (Protonix -) 40 mg PO DAILY [facility] Last Admin: 11/16/17 09:47 Dose: 40 mg Promethazine HCl (Phenergan Injection -) 12.5 mg IVPB Q6H PRN PRN Reason: NAUSEA-FOR RESCUE AFTER 15 MIN Tamsulosin HCl (Flomax -) 0.4 mg PO DAILY@0830 [facility] Last Admin: 11/16/17 09:47 Dose: 0.4 mg - Objective Vital Signs: Vital Signs Temperature 99.7 F H 11/16/17 10:00 Pulse Rate 88 11/16/17 10:00 Respiratory Rate 20 11/16/17 10:00 Blood Pressure 130/68 11/16/17 10:00 O2 Sat by Pulse Oximetry (%) 97 11/15/17 16:58 Constitutional: Yes: Calm Eyes: Yes: Conjunctiva Clear HENT: Yes: Atraumatic Neck: Yes: Supple Cardiovascular: Yes: S1, S2 Respiratory: Yes: CTA Bilaterally Gastrointestinal: Yes: Normal Bowel Sounds, Soft Genitourinary: Yes: WNL Edema: No Wound/Incision: Yes: Dressing Dry and Intact Neurological: Yes: Oriented Psychiatric: Yes: Oriented Labs: CBC, BMP 11/14/17 07:02 11/14/17 06:15 INR, PTT INR 1.11 (0.82-1.09) 11/08/17 15:42 Problem List - Problems (1) CKD stage 3 due to type 2 diabetes mellitus Code(s): E11.22 - TYPE 2 DIABETES MELLITUS W DIABETIC CHRONIC KIDNEY DISEASE; N18.3 - CHRONIC KIDNEY DISEASE, STAGE 3 (MODERATE) (2) Diabetes mellitus Code(s): E11.9 - TYPE 2 DIABETES MELLITUS WITHOUT COMPLICATIONS Qualifiers: Diabetes mellitus type: type 1 Diabetes mellitus complication status: with unspecified complications Qualified Code(s): E10.8 - Type 1 diabetes mellitus with unspecified complications Assessment/Plan Current Medications Generic Name Dose Route Start Last Admin Trade Name Freq PRN Reason Stop Dose Admin Amlodipine Besylate 5 mg 11/16/17 10:00 11/16/17 09:47 Norvasc - PO 5 mg DAILY [facility] Administration Atorvastatin Calcium 40 mg 11/15/17 22:00 11/15/17 21:05 Lipitor - PO 40 mg HS [facility] Administration Clindamycin HCl 300 mg 11/16/17 14:00 Cleocin - PO TID [facility] Clopidogrel Bisulfate 75 mg 11/16/17 10:00 11/16/17 09:47 Plavix - PO 75 mg DAILY [facility] Administration Fentanyl 25 mcg 11/15/17 16:23 Sublimaze Injection - IVPUSH [id number] PRN PAIN-PACU ORDER X 4 DOSES ONLY Heparin Sodium (Porcine) 5,000 unit 11/15/17 22:00 11/16/17 06:16 Heparin - SQ 5,000 unit TID [facility] Administration Lactated Ringer's 1,000 mls @ 75 mls/hr 11/15/17 16:19 11/15/17 16:30 Lactated Ringers Solution IV 0 mls ASDIR [facility] Administration Insulin Aspart 1 vial 11/15/17 16:30 11/16/17 11:23 Novolog Vial Sliding Scale - SQ 7 units ACHS [facility] Administration Protocol Insulin Detemir 27 units 11/15/17 22:00 11/16/17 07:15 Levemir Vial SQ 27 units BID@0700,2200 [facility] Administration Levofloxacin 500 mg 11/16/17 12:00 11/16/17 12:52 Levaquin - PO 500 mg DAILY@0600 [facility] Administration Multivitamins/Minerals/Vitamin C 1 tab 11/16/17 10:00 11/16/17 09:47 Tab-A-Vit - PO 1 tab DAILY [facility] Administration Ondansetron HCl 4 mg 11/15/17 16:19 Zofran Injection IVPUSH Q6H PRN NAUSEA AND/OR VOMITING Oxycodone HCl 5 mg 11/15/17 16:19 11/15/17 20:52 Roxicodone - PO 11/16/17 15:57 5 mg Q4H PRN Administration PAIN LEVEL 1-5 Pantoprazole Sodium 40 mg 11/16/17 10:00 11/16/17 09:47 Protonix - PO 40 mg DAILY [facility] Administration Promethazine HCl 12.5 mg 11/15/17 16:19 Phenergan Injection - IVPB Q6H PRN NAUSEA-FOR RESCUE AFTER 15 MIN Tamsulosin HCl 0.4 mg 11/16/17 08:30 11/16/17 09:47 Flomax - PO 0.4 mg DAILY@0830 [facility] Administration Impression 1. CKD 2. DFU 3. HTN 4. DM - poorly controlled 5. hx proteinuria 6. hyperlipidemia Plan - no new labs - pt will follow with Dr Pace as outpt - avoid nsaids - avoid nephrotoxins - will need outpt follow up with vascular and podiatry - will follow
[2017-11-16] MEDS ORDERED: CLINDAMYCIN HCL 150 MG CAPSULE (FP) PO SCH (14:00)
--- NOTE | 2017-11-18 17:14 | PATH ---
Surgical Pathology Report Patient Name: STEVE CALDERON Med. Rec. #: [id number] /Age/Gender: 1960 (Age: 57) / M Account: [id number] Location: [facility] MED/SURG Taken: 11/15/2017 Received: 11/16/2017 Reported: 11/18/2017 Physicians: PHILIP Roche M.D. Specimen(s) Received A: PROXIMAL BONE RIGHT 3RD TOE B: DISTAL TOE RIGHT 3RD TOE Clinical History Osteomyelitis right third toe Final Diagnosis A. PROXIMAL BONE, THIRD TOE, RIGHT, BIOPSY: BONE WITHOUT SIGNIFICANT PATHOLOGIC FINDINGS. NO EVIDENCE OF ACUTE OSTEOMYELITIS. B. DISTAL TOE, THIRD, RIGHT, AMPUTATION: PORTION OF DIGIT WITH ACUTE AND CHRONIC GANGRENOUS NECROSIS, ULCERATION, AND ACUTE OSTEOMYELITIS INVOLVING SOFT TISSUE AND BONE SURGICAL MARGINS Electronically Signed Susie Pollard M.D. Gross Description A. Received in formalin labeled "proximal bone right third toe," is a 1.5 x 0.8 x 0.5 cm anaya, irregular portion of bone. The specimen is bisected and entirely submitted in one cassette, following decalcification. B. Received in formalin labeled "distal toe right third toe," is a 2.5 x 2.2 x 1.6 cm toe amputation specimen. The epidermal surface displays a 1.2 x 1.0 cm ulcerated lesion at 0.3 cm from the skin and soft tissue margin. The lesion involves the underlying bone. Animal Behaviourist sections are submitted in 3 cassettes as follows: 1-lesion with underlying bone, following decalcification; 2-bone margin, following decalcification; 3-skin and soft tissue margin. 11/17/2017 [facility]11/17/2017
== END 2017-11-16 14:53 | disposition home health service (06) | DRG 617 ==
LOC: JER 14:08 → JERBED 17:55 → J8W 11-09 01:19 → UNDODISIN 11-14 16:39
PROVIDERS: ADMIT Internal Medicine; ATTEND Family Medicine
PROC: B41DYZZ Fluoroscopy of Aorta and Bilateral Lower Extremity Arteries using Other Contrast (ICD-10-PCS; 2017-11-11)
PROC: B41FYZZ Fluoroscopy of Right Lower Extremity Arteries using Other Contrast (ICD-10-PCS; 2017-11-11)
PROC: 047K3DZ Dilation of Right Femoral Artery with Intraluminal Device, Percutaneous Approach (ICD-10-PCS; 2017-11-14)
PROC: B40FYZZ Plain Radiography of Right Lower Extremity Arteries using Other Contrast (ICD-10-PCS; 2017-11-14)
PROC: 0Y6T0Z3 Detachment at Right 3rd Toe, Low, Open Approach (ICD-10-PCS; principal; 2017-11-15 12:00)
DX: E11.621 Type 2 diabetes mellitus with foot ulcer (principal); M86.8X7 Other osteomyelitis, ankle and foot; L97.519 Non-pressure chronic ulcer of other part of right foot with unspecified severity; F17.210 Nicotine dependence, cigarettes, uncomplicated; E11.22 Type 2 diabetes mellitus with diabetic chronic kidney disease; I12.9 Hypertensive chronic kidney disease with stage 1 through stage 4 chronic kidney disease, or unspecified chronic kidney disease; E11.65 Type 2 diabetes mellitus with hyperglycemia; N40.0 Benign prostatic hyperplasia without lower urinary tract symptoms; D64.9 Anemia, unspecified; E78.5 Hyperlipidemia, unspecified; Z79.4 Long term (current) 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; L03.031 Cellulitis of right toe; E11.69 Type 2 diabetes mellitus with other specified complication; E66.9 Obesity, unspecified; C61 Malignant neoplasm of prostate; E11.40 Type 2 diabetes mellitus with diabetic neuropathy, unspecified; N17.9 Acute kidney failure, unspecified; N18.3 Chronic kidney disease, stage 3 (moderate); E11.51 Type 2 diabetes mellitus with diabetic peripheral angiopathy without gangrene; Z68.28 Body mass index [BMI] 28.0-28.9, adult
CPT/HCPCS: 11042; 36415; 71045-TC-FY; 73660-TC-FY; 76000-TC-FY; 80048; 80053; 81003; 81015; 82962; 83036; 85025; 85027; 85610; 86850; 86900; 86901; 87040; 87070; 87077; 87186; 87205; 93005; 93010; 93922; 93925-TC; 93978; 94760; 99283-25; G0480; J1644; J7030

== ENCOUNTER 2018-07-06 07:53 | Day surgery (SDC) | payer OTHER ==
[2018-07-04 12:36] VITALS: BMI 26.6
[~2018-07-06 07:53] MED LIST: LIDOCAINE HCL 1%, 10 MG/ML (20ML VIAL) ID ONE
[2018-07-06] MEDS ORDERED: MIDAZOLAM HCL 2 MG/2 ML SINGLE DOSE VIAL ONE ×2 (09:16)
[2018-07-06] MEDS ORDERED: LIDOCAINE HCL 1%, 10 MG/ML (20ML VIAL) ID ONE ×2 (09:27)
--- NOTE | 2018-07-06 10:20 | HP ---
Admitting History and Physical - Admission Chief Complaint: Right foot ulcers. podiatry wants to do a TMA next week. Here for angiogram for clearance. 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 vascular stent left leg) - Smoking History Smoking history: Former smoker Have you smoked in the past 12 months: No Aproximately how many cigarettes per day: 15 If you are a former smoker, when did you quit?: 2012 - Alcohol/Substance Use Hx Alcohol Use: No History of Substance Use: reports: Marijuana (in past) - Social History ADL: Independent Occupation: Former [employer] History of Recent Travel: No Home Medications - Allergies Allergies/Adverse Reactions: Allergies Allergy/AdvReac Type Severity Reaction Status Date / Time piperacillin [From Zosyn] Allergy Verified 07/06/18 08:50 tazobactam [From Zosyn] Allergy Verified 07/06/18 08:50 - Home Medications Home Medications: Ambulatory Orders Atorvastatin Calcium 40 mg PO HS 08/10/16 Insulin Degludec [Tresiba Flextouch U-100] 65 units SQ HS 01/01/17 Aspirin Coated [Ecotrin -] 81 mg PO DAILY tablet.ec 07/20/17 Multivitamins [Multivit ([facility] Formulary)] 1 tab PO DAILY tab 07/20/17 Pantoprazole Sodium 40 mg PO DAILY 09/05/17 Metoprolol Tartrate 25 mg PO TID 11/08/17 Insulin Aspart (Niacinamide) [Fiasp 100 Unit/ml Vial] 24 unit SQ TID 07/04/18 Liraglutide [Victoza -] 1.2 - 1.8 mg SQ DAILY@0700 07/04/18 Family Disease History - Family Disease History Family Disease History: Diabetes: Father (: unclear causes), Other: Mother ( Alive: healthy. ? dementia), Brother (1, healthy, 1 : suicide), Sister (1, alive: BCA) Review of Systems - Review of Systems Constitutional: reports: No Symptoms Eyes: reports: No Symptoms HENT: reports: No Symptoms Neck: reports: No Symptoms Cardiovascular: reports: No Symptoms Respiratory: reports: No Symptoms Gastrointestinal: reports: No Symptoms Genitourinary: reports: No Symptoms Musculoskeletal: reports: No Symptoms Integumentary: reports: No Symptoms Neurological: reports: No Symptoms Endocrine: reports: No Symptoms Hematology/Lymphatic: reports: No Symptoms Psychiatric: reports: No Symptoms Physical Examination Vital Signs: Vital Signs Temperature 97.8 F 07/06/18 08:49 Pulse Rate 85 07/06/18 08:49 Respiratory Rate 20 07/06/18 08:49 Blood Pressure 138/87 07/06/18 08:49 O2 Sat by Pulse Oximetry (%) 99 07/06/18 08:42 Constitutional: Yes: Well Nourished, No Distress, Calm Eyes: Yes: WNL, Conjunctiva Clear, EOM Intact HENT: Yes: WNL, Atraumatic, Normocephalic Neck: Yes: WNL, Supple, Trachea Midline Cardiovascular: Yes: WNL, Regular Rate and Rhythm Respiratory: Yes: WNL, Regular, CTA Bilaterally Gastrointestinal: Yes: WNL, Normal Bowel Sounds Musculoskeletal: Yes: WNL Extremities: Yes: WNL, Other (Right lower ext ulcers) Edema: No Peripheral Pulses WNL: No Integumentary: Yes: WNL Neurological: Yes: WNL, Alert, Oriented ...Motor Strength: WNL Psychiatric: Yes: WNL Problem List - Problems (1) Right foot ulcer Assessment/Plan: For angiogram today Code(s): L97.519 - NON-PRS CHRONIC ULCER OTH PRT RIGHT FOOT W UNSP SEVERITY
--- NOTE | 2018-07-06 10:21 | OP ---
Operative Note - Note: Operative Date: 07/06/18 Operation: Right foot ulcers Findings: SFA, Popliteal artery closed. Collateral circulation feeding tibial arteries Post-Operative Diagnosis: Same as Pre-op Surgeon: Guerrero Nuno Anesthesia: Fractional Estimated Blood Loss (mls): 50 Operative Report Dictated: Yes
[2018-07-06 14:57] VITALS: BP 147/90; PULSE 90; TEMP 98
--- NOTE | 2018-07-08 11:51 | OP ---
DATE OF OPERATION: 07/06/2018 PREOPERATIVE DIAGNOSIS: Right foot ulcers. POSTOPERATIVE DIAGNOSIS: Right foot ulcers. PROCEDURE: Aortogram, right lower extremity angiogram. SURGEON: Guerrero Jiang DO ANESTHESIA: Fractional. BLOOD LOSS: 10 mL. INDICATION: The patient is a 57-year-old male that has nonhealing right heel and lateral foot ulcers. Preoperative ultrasound showed diffuse disease throughout the right lower extremity, it was decided that he would need an angiogram. Patient came in through ambulatory surgery. Patient was consented for the procedure, understanding all risks, benefits, and alternatives. DESCRIPTION OF PROCEDURE: He was then taken to the operating room. Once in the operating room, he was laid on the operating table in supine manner, and the area of the right neck and groin was prepped and draped in a sterile surgical manner. We then injected 10 mL of lidocaine 1% over the left common femoral artery. Micropuncture wire was inserted, Micropuncture sheath was inserted, and a traditional 5-[place] sheath was inserted. We then placed a 0.035 floppy guidewire into the aorta, followed by Omniflush catheter. We then shot an aortogram by hand injection showing that the aorta and iliac arteries were without any disease. We then brought our wire down to the right common femoral artery and Omniflush catheter followed. Then we shot an angiogram of the right lower extremity showing that the common femoral artery was patent, the profunda was patent, the proximal SFA was patent, and then the SFA was occluded. There was a stent in place that is occluded. Beyond the stent the SFA is occluded. Popliteal artery is occluded, and it seems like the TP trunk is occluded as well. There was a lot of collateral circulation which feeds a PT that then Gram stain into the foot. At this point, there is no intervention that can be performed. We attempted to use our 0.035 stiff guidewire and try to cross the lesion in the SFA, but the wire would not advance past the proximal SFA. At this point patient will need conservative therapy, might need hypercarbic oxygen therapy. If the foot gets worse, then patient might need a femoral distal bypass. At this point we brought our Omniflush catheter up and over. The 5-[place] sheath was removed from the left groin. Pressure was held for 5 minutes, After there was no more bleeding, the area was wet and dried and Dermabond was placed. Patient transferred to PACU in stable condition. Total blood loss 20 mL. GUERRERO JIANG DO NP/[id number]
== END 2018-07-06 14:30 | disposition home or self-care (01) ==
LOC: JASU-SURG 07:53
PROVIDERS: ATTEND Surgery Vascular Surgery
PROC: B41DYZZ Fluoroscopy of Aorta and Bilateral Lower Extremity Arteries using Other Contrast (ICD-10-PCS; principal; 2018-07-06 09:00)
DX: E11.621 Type 2 diabetes mellitus with foot ulcer (principal); Z79.4 Long term (current) 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; N28.9 Disorder of kidney and ureter, unspecified; Z85.46 Personal history of malignant neoplasm of prostate; L97.519 Non-pressure chronic ulcer of other part of right foot with unspecified severity
CPT/HCPCS: 75710-TC-FY; 76000-TC-FY; 82962; 94760; J1644

== ENCOUNTER 2018-10-19 08:57 | Day surgery (SDC) | payer OTHER ==
[2018-10-17 16:07] VITALS: BMI 28.8
[2018-10-19] MEDS ORDERED: LIDOCAINE HCL 1%, 10 MG/ML (20ML VIAL) ONE (10:08)
[2018-10-19] MEDS ORDERED: HEPARIN NA (PORCINE) 5,000 UNITS/ML 1ML VIAL ONE ×2 (10:09→10:43)
[2018-10-19] MEDS ORDERED: oxyCODONE HCL 5 MG TABLET PO PRN (10:13)
[2018-10-19] MEDS ORDERED: PROMETHAZINE HCL 25 MG/1 ML VIAL IVPB PRN (10:13)
[2018-10-19] MEDS ORDERED: ONDANSETRON 4 MG/2 ML VIAL IVPUSH PRN (10:13)
[2018-10-19] MEDS ORDERED: LACTATED RINGERS SOLUTION 1,000 ML IV SCH (10:15)
--- NOTE | 2018-10-19 10:20 | HP ---
Admitting History and Physical - Admission Chief Complaint: Left lower extremity ulcers, non-healing. 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 vascular stent left leg) - Smoking History Smoking history: Former smoker Have you smoked in the past 12 months: No Aproximately how many cigarettes per day: 15 If you are a former smoker, when did you quit?: 2013 - Alcohol/Substance Use Hx Alcohol Use: No (2012) History of Substance Use: reports: Marijuana (in past) - Social History ADL: Independent Occupation: Former [employer] History of Recent Travel: No Home Medications - Allergies Allergies/Adverse Reactions: Allergies Allergy/AdvReac Type Severity Reaction Status Date / Time piperacillin [From Zosyn] Allergy Verified 10/19/18 09:43 tazobactam [From Zosyn] Allergy Verified 10/19/18 09:43 - Home Medications Home Medications: Ambulatory Orders Atorvastatin Calcium 40 mg PO HS 08/10/16 Insulin Degludec [Tresiba Flextouch U-100] 55 units SQ HS 01/01/17 Aspirin Coated [Ecotrin -] 81 mg PO DAILY tablet.ec 07/20/17 Metoprolol Tartrate 25 mg PO HS 11/08/17 Insulin Aspart (Niacinamide) [Fiasp 100 Unit/ml Vial] 24 unit SQ TID 07/04/18 Semaglutide [Ozempic] 0.25 mg SQ Q30D 10/03/18 Ferrous Sulfate 320 mg PO DAILY 10/10/18 Pantoprazole Sodium 40 mg PO PRN PRN 10/19/18 Family Disease History - Family Disease History Family Disease History: Diabetes: Father (: unclear causes), Other: Mother ( Alive: healthy. ? dementia), Brother (1, healthy, 1 : suicide), Sister (1, alive: BCA) Review of Systems - Review of Systems Constitutional: reports: No Symptoms Eyes: reports: No Symptoms HENT: reports: No Symptoms Neck: reports: No Symptoms Cardiovascular: reports: No Symptoms Respiratory: reports: No Symptoms Gastrointestinal: reports: No Symptoms Genitourinary: reports: No Symptoms Musculoskeletal: reports: No Symptoms Integumentary: reports: No Symptoms Neurological: reports: No Symptoms Endocrine: reports: No Symptoms Hematology/Lymphatic: reports: No Symptoms Psychiatric: reports: No Symptoms Physical Examination Vital Signs: Vital Signs Temperature 97.9 F 10/19/18 09:41 Pulse Rate 93 H 10/19/18 09:41 Respiratory Rate 20 10/19/18 09:41 Blood Pressure 121/83 10/19/18 09:41 O2 Sat by Pulse Oximetry (%) 100 10/19/18 09:40 Constitutional: Yes: Well Nourished, No Distress, Calm Eyes: Yes: WNL, Conjunctiva Clear, EOM Intact HENT: Yes: WNL, Atraumatic, Normocephalic Neck: Yes: WNL, Supple, Trachea Midline Cardiovascular: Yes: WNL, Regular Rate and Rhythm Respiratory: Yes: WNL, Regular, CTA Bilaterally Gastrointestinal: Yes: WNL, Normal Bowel Sounds Musculoskeletal: Yes: WNL Extremities: Yes: WNL Edema: No Integumentary: Yes: WNL Neurological: Yes: WNL, Alert, Oriented ...Motor Strength: WNL Psychiatric: Yes: WNL Problem List - Problems (1) Ulcer of left foot Assessment/Plan: For angiogram today Code(s): L97.529 - NON-PRESSURE CHRONIC ULCER OTH PRT LEFT FOOT W UNSP SEVERITY
[2018-10-19] MEDS ORDERED: MIDAZOLAM HCL 2 MG/2 ML SINGLE DOSE VIAL ONE ×2 (10:30)
[2018-10-19] MEDS ORDERED: ceFAZolin SODIUM 1 GM VIAL IVPB ONE (10:35)
[2018-10-19] MEDS ORDERED: DEXAMETHASONE SOD PHOSPHATE 4 MG/1 ML VIAL ONE (10:42)
[2018-10-19] MEDS ORDERED: LIDOCAINE HCL/PF 2% SDV 5ML VIAL ONE (10:42)
[2018-10-19] MEDS ORDERED: PROPOFOL 20 ML ONE (10:42)
[2018-10-19] MEDS ORDERED: LIDOCAINE HCL 1%, 10 MG/ML (50 mL VIAL) IJ ONE ×2 (10:44)
[2018-10-19] MEDS ORDERED: METOPROLOL TARTRATE 5 MG/5 ML VIAL ONE (10:45)
[2018-10-19] MEDS ORDERED: INSULIN REGULAR HUMAN 100 UNITS/ML *VIAL SQ ONE (10:45)
--- NOTE | 2018-10-19 11:45 | OP ---
Operative Note - Note: Operative Date: 10/19/18 Pre-Operative Diagnosis: Left foot ulcer Operation: CO2 aortogram, LLE angiogram, SFA angioplasty Findings: SFA stent occlusion 13cc of contrast given Post-Operative Diagnosis: Same as Pre-op Surgeon: Guerrero Nuno Anesthesia: Fractional Estimated Blood Loss (mls): 50 Operative Report Dictated: Yes
[2018-10-19] MEDS ORDERED: CLOPIDOGREL BISULFATE 75 MG TABLET (FP) PO ONE (11:46)
[2018-10-19] MEDS ORDERED: CLOPIDOGREL BISULFATE 75 MG TABLET (FP) ONE (12:40)
[2018-10-19 12:57] VITALS: TEMP 98
--- NOTE | 2018-10-19 13:06 | OP ---
DATE OF OPERATION: 10/19/2018 PREOPERATIVE DIAGNOSIS: Left foot ulcer. POSTOPERATIVE DIAGNOSIS: Left foot ulcer. PROCEDURE: CO2 aortogram, left lower extremity angiogram, left superficial femoral artery angioplasty SURGEON: Guerrero Jiang MD ANESTHESIA: Fractional. BLOOD LOSS: 50 mL. INDICATIONS: The patient is a 58-year-old male who has a left foot ulcer. He is referred to us by his order desk caller. Preoperative ultrasound showed that he had a left SFA stent that is occluded, and it was decided that he wound need angiogram. Patient came into ambulatory surgery. Patient was consented for the procedure understanding all risks, benefits, and alternatives and then taken to the operating room. PROCEDURE IN DETAIL: Once in the operating suite, he was placed on the operating table in the supine manner, and the area of the right and left groin were prepped and draped in the sterile surgical manner. We then went ahead and under ultrasound guidance visualized the right common femoral artery. The artery was very calcified. We took our micropuncture needle, punctured the artery under ultrasound guidance. A micropuncture wire was inserted. Micropuncture sheath was inserted, and a traditional 5-[place]izen [place] sheath was inserted. We then placed a 0.035 floppy guidewire up into the aorta followed by an Omni Flush catheter. We then used CO2 angiography and we were able to perform CO2 aortogram showing that the aorta and iliac arteries were without any disease. We then used a 0.035 stiff guidewire and went up and over to the left common femoral artery, and the Omni Flush catheter followed. Patient had an SFA sent from its origin to behind the knee, which was occluded on CO2 angiography. Patient had a 2-vessel runoff into the foot. At this point, we removed our Omni Flush catheter, and placed a 6 x 45 crossover sheath, 5000 units of IV heparin were administered to the patient, and using a Quick-Cross catheter, we were able to cross our stent and place the wire down into the peritoneal artery and exchange the wire for a 0.014 aircraft pilot wire. We then used a 0.018, 6 x 220 Ultraverse balloon and performed angioplasty of the entire stent. Completion angiogram now showed that the stent was patent, there was good brisk flow and good runoff into the foot in the form of AT and PT. At this point, no more intervention was needed. We brought our sheath up and over, and StarClose device was successfully deployed in the right common femoral artery. Pressure was held for 5 minutes. After that, there was no bleeding. The area was wet and dried, and Dermabond was placed. The patient tolerated the procedure with no complications. Patient transferred to PACU in stable condition. GUERRERO JIANG DO NP/[id number]
[2018-10-19 15:39] VITALS: BP 160/90; PULSE 82
== END 2018-10-19 15:00 | disposition home or self-care (01) ==
LOC: JASU-SURG 08:57
PROVIDERS: ATTEND Surgery Vascular Surgery
PROC: 047L3ZZ Dilation of Left Femoral Artery, Percutaneous Approach (ICD-10-PCS; principal; 2018-10-19 10:30)
DX: E11.51 Type 2 diabetes mellitus with diabetic peripheral angiopathy without gangrene (principal); I70.202 Unspecified atherosclerosis of native arteries of extremities, left leg; E11.621 Type 2 diabetes mellitus with foot ulcer; L97.529 Non-pressure chronic ulcer of other part of left foot with unspecified severity; Z79.4 Long term (current) 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; I10 Essential (primary) hypertension; Z85.46 Personal history of malignant neoplasm of prostate; Z87.891 Personal history of nicotine dependence
CPT/HCPCS: 37224; C1725; 76000-TC-FY; 82962; 94760; J1644

== ENCOUNTER 2018-11-13 12:07 | Inpatient (IN) | payer OTHER | END 2018-11-17 18:24 | disposition home health service (06) | LOC: JER 12:07 → JERBED 14:55 → J6S 19:00 ==

== ENCOUNTER 2019-03-29 13:08 | Inpatient (IN) | payer OTHER ==
--- NOTE | 2019-03-29 13:40 | PDOC ---
History of Present Illness - General Chief Complaint: Hematuria Stated Complaint: GROIN PAIN/URINARY PROBLEM Time Seen by Provider: 03/29/19 13:34 History Source: Patient Exam Limitations: No Limitations - History of Present Illness Initial Comments: Ney Puentes is a 58 yo M w a pmh of CKD, PVD s/p LLE angioplasty, T2DM, HTN, HLD, diabetic foot/wound ulcers, and prostate ca who presents to the [facility] er bc he has been experiencing RLQ abdominal pain for the past 3 days. Today he states that his urine looked red and he was concerned that he was bleeding through his urine. The patient reports that all his symptoms began 3 days ago when he had a powerful bowel movement and cleared his insides. He believes he pulled something in the RLQ of his abdomen and things have been getting worse ever since. Patient endorses nausea without emesis. Denies having any recent diarrhea or constipation. PCP: Dr. Darren Carr Liaison Planner: Dr. Antonio Byrd PSH: Amputation (lt tma, amputations 2nd and 5th rt toes), Stent (vascular stent left leg) Allergies: NKA, NKDA Social Hx: Denies current smoking, drinking, or other substance usage Past History - Past Medical History Allergies/Adverse Reactions: Allergies Allergy/AdvReac Type Severity Reaction Status Date / Time piperacillin [From Zosyn] Allergy Verified 11/13/18 12:35 tazobactam [From Zosyn] Allergy Verified 11/13/18 12:35 Home Medications: Ambulatory Orders Atorvastatin Calcium 40 mg PO HS 08/10/16 Insulin Degludec [Tresiba Flextouch U-100] 55 units SQ HS 01/01/17 Aspirin Coated [Ecotrin -] 81 mg PO DAILY tablet.ec 07/20/17 Insulin Aspart (Niacinamide) [Fiasp 100 Unit/ml Vial] 24 unit SQ TID 07/04/18 Semaglutide [Ozempic] 0.25 mg SQ Q30D 10/03/18 Pantoprazole Sodium 40 mg PO PRN PRN 10/19/18 Clopidogrel Bisulfate [Plavix -] 75 mg PO DAILY tablet 11/17/18 Metoprolol Succinate [Toprol XL -] 25 mg PO HS tab.sr.24h 11/17/18 Sulfamethoxazole/Trimethoprim [Bactrim Ds Tablet] 1 each PO BID 7 Days #14 tablet 03/06/19 Anemia: No Asthma: No Cancer: Yes (Prostate (s/p seed implants July 02, 2016)) Cardiac Disorders: No CVA: No COPD: No CHF: No Dementia: No Diabetes: Yes (IDDM, diabetic foot ulcers) GI Disorders: No Disorders: No HTN: Yes Hypercholesterolemia: Yes Liver Disease: No Seizures: No Thyroid Disease: No - Surgical History Abdominal Surgery: No Appendectomy: No Cardiac Surgery: No Cholecystectomy: No GI Surgery: Yes (PROSTATE RADIATION SEED PLACEMENT) Lung Surgery: No Neurologic Surgery: No Orthopedic Surgery: Yes (left foot metatarsal amp, right toe ampsx2, left leg stent,right LE angiogr) - Immunization History Immunization Up to Date: No - Psycho Social/Smoking Cessation Hx Smoking Status: Yes (quit smoking 9 days ago) Smoking History: Never smoked Have you smoked in the past 12 months: No Number of Cigarettes Smoked Daily: 15 If you are a former smoker, when did you quit?: 2012 Information on smoking cessation initiated: No 'Breaking Loose' booklet given: 04/04/13 Hx Alcohol Use: No Drug/Substance Use Hx: No Substance Use Type: None Hx Substance Use Treatment: No Review of Systems - Review of Systems Able to Perform ROS?: Yes Comments:: CONSTITUTIONAL: Present: Fatigue Absent: fever, no chills EYES: Absent: visual changes ENT: Absent: ear pain, no sore throat CARDIOVASCULAR: Absent: chest pain, no palpitations RESPIRATORY: Absent: cough, no SOB GI: Present: Abdominal pain, nausea Absent: no vomiting, no constipation, no diarrhea GENITOURINARY: Present: Hematuria Absent: dysuria, no frequency MUSKULOSKELETAL: Absent: back pain, no arthralgia, no myalgia SKIN: Absent: rash NEURO: Absent: headache *Physical Exam - Vital Signs Last Vital Signs Temp Pulse Resp BP Pulse Ox 98.6 F 108 H 16 90/59 L 98 03/29/19 13:16 03/29/19 13:16 03/29/19 13:16 03/29/19 13:16 03/29/19 13:16 - Physical Exam Comments: GENERAL: Well-appearing, well-nourished. Mild distress. HEENT: Normocephalic, atraumatic. PERRL, EOM intact. CARDIOVASCULAR: Tachycardic rate. Normal S1, S2. Regular rhythm. PULMONARY: No evidence of respiratory distress. Lungs clear to auscultation bilaterally. No wheezing, rales or rhonchi. ABDOMEN: There is right sided abdominal TTP. Abdomen is soft, non-distended, and has normal bowel sounds. No guarding or rebound. GENITOURINARY: There is no testicular pain. There is no large hernia. There is a focal spot of significant TTP in the RLQ of the abdomen. EXTREMITIES: Normal ROM in all four extremities. No gross deformities. SKIN: Warm, dry. No rash NEUROLOGICAL: No focal neurological deficits. ED Treatment Course - LABORATORY CBC & Chemistry Diagram: 03/29/19 14:00 03/29/19 14:00 Medical Decision Making - Medical Decision Making Ney Puentes is a 58 yo M w a pmh of CKD, PVD s/p LLE angioplasty, T2DM, HTN, HLD, diabetic foot/wound ulcers, and prostate ca who presents to the [facility] er bc he has been experiencing RLQ abdominal pain for the past 3 days. Today he states that his urine looked red and he was concerned that he was bleeding through his urine. The patient reports that all his symptoms began 3 days ago when he had a powerful bowel movement and cleared his insides. He believes he pulled something in the RLQ of his abdomen and things have been getting worse ever since. Patient endorses nausea without emesis. Denies having any recent diarrhea or constipation. Vital Signs Temp Pulse Resp BP Pulse Ox 98.6 F 108 H 16 90/59 L 98 03/29/19 13:16 03/29/19 13:16 03/29/19 13:16 03/29/19 13:16 03/29/19 13:16 tachycardic hypotensive DDx IBNLT: Appendicitis, hernia - incarcerated vs strangulated, diverticulitis, UTI/Pylo, renal colic, cholecystitis, electrolyte/metabolic disturbance Plan: Labs, Urine, CTAP, IV hydration, analgesia, re-assess Labs: Leukocytosis with left shift. Elevated BUN and Cr likely from CKD. Urine: Unremarkable without signs of blood CTAP: Suggests appendicitis with possible microperforation Re-assessment: Appendicitis - Will get patient admitted and call surgery - Dr. Zapien food and nutrition services assistant Surgical Consult - Dr. Zapien: NPO, IV hydration - Abx: levo and metro - Patient describes angioedema type symptoms when he gets zosyn - Coags Disposition: Admit to hospital -Paged Dr. Mishra at 4:30 and 4:45 no response - Patient microblogged and accepted to hospital for admission Discharge - Discharge Information Problems reviewed: Yes Clinical Impression/Diagnosis: Appendicitis Qualifiers: Appendicitis type: acute appendicitis Acute appendicitis type: unspecified acute appendicitis type Qualified Code(s): K35.80 - Unspecified acute appendicitis Condition: Guarded - Admission Yes - Follow up/Referral - Patient Discharge Instructions - Post Discharge Activity
[2019-03-29] MEDS ORDERED: ACETAMINOPHEN 325 MG TABLET (FP) PO ONE (13:52)
[2019-03-29] MEDS ORDERED: SODIUM CHLORIDE 0.9% 500 ML INFUS.BAG IV ONE ×2 (13:53→16:23)
[2019-03-29 14:33] LABS: BASO % 0.5 % (0-2.0); EOS % 0.8 % (0-4.5); HEMATOCRIT 40.4 % (35.4-49); HEMOGLOBIN 13.7 GM/dL (11.7-16.9); MCH 27.4 pg (25.7-33.7); MCHC 33.8 g/dl (32.0-35.9); MONO % 7.7 % (3.8-10.2); PLATELET COUNT 254 K/MM3 (134-434); RBC 4.98 M/mm3 (4.00-5.60); RDW 15.6 % (11.9-15.9); WHITE BLOOD COUNT 14.5 K/mm3 (4.0-10.0)
[2019-03-29 14:35] LABS: URINE APPEARANCE CLOUDY; URINE BACTERIA 3.6 /hpf (NEGATIVE); URINE BILIRUBIN NEGATIVE (NEGATIVE); URINE COLOR DK YELLOW; URINE GLUCOSE (UA) TRACE (NEGATIVE); URINE KETONE TRACE (NEGATIVE); URINE LEUK ESTERASE NEGATIVE (NEGATIVE); URINE NITRITE NEGATIVE (NEGATIVE); URINE PROTEIN 2+ (NEGATIVE); URINE WBC 2 /hpf (0-5)
[2019-03-29 14:59] LABS: ALBUMIN 3.4 g/dl (3.4-5.0); BILIRUBIN,TOTAL 0.8 mg/dL (0.2-1); BLOOD UREA NITROGEN 52.6 mg/dL (7-18); CALCIUM 8.8 mg/dL (8.5-10.1); CREATININE 2.5 mg/dL (0.55-1.3); POTASSIUM 4.3 mmol/L (3.5-5.1); TOT PROT 7.6 g/dl (6.4-8.2)
[2019-03-29 15:08] LABS: HYALINE CASTS 1 /lpf (0-8)
--- NOTE | 2019-03-29 15:36 | PDOC ---
Attending Attestation - Resident Resident Name: RobinwarrenAllisonSid - ED Attending Attestation I have performed the following: I have examined & evaluated the patient, The case was reviewed & discussed with the resident, I agree w/resident's findings & plan - HPI HPI: 03/29/19 16:06 The pt is a 58M w/ a history of PVD s/p LLE angioplasty 2 weeks ago (Dr. Nuno) , T2DM, HTN, HLD, s/p L TMA, s/p R ray amputation x3 who presents for RLQ abdominal pain PMH: T2DM, HTN, PVD, HLD, R plantar diabetic foot wound PSH: LLE angioplasty 2 weeks ago (Plavix), s/p L TMA, s/p R ray amputation x3 Allergies: Zosyn SH: Denies tobacco or EtOH use PMD: Dr. Darren Carr Geoint Analyst: Dr. Antonio Byrd 03/29/19 16:26 - Physicial Exam PE: 03/29/19 16:32 Agree with the resident's HPI and PE as documented in the electronic medical record. NAD, well appearing, EOMI, PERRL, nl conjunctiva, anicteric; neck supple. lungs clear, RRR, abdomen soft nondistended, +RLQ tenderness, no rebound or guarding. neg Rovsing's. no CVAT. Back nontender. PATEL x4, no focal neuro deficits. No peripheral edema. normal color for ethnicity, WWP. right boot in place. - Medical Decision Making 03/29/19 16:34 See HPI for details. Prior notes reviewed, including admissions, discharges and consultations. Vital signs reviewed, +tachy, but also in pain. soft BP, improved on recheck Vital Signs Temp Pulse Resp BP Pulse Ox 98.6 F 85 18 122/78 98 03/29/19 13:16 03/29/19 16:07 03/29/19 16:07 03/29/19 16:07 03/29/19 16:07 DDx abdominal pain: Renal colic, biliary colic, metabolic/electrolyte derangements. GERD, PUD, esophageal spasm, pancreatitis, hepatitis, constipation , colitis, gastroenteritis, cholecystitis, UTI, pyelonephritis, ileus, SBO, medication side effect, hernia, appendicitis, diverticulitis, mesenteric ischemia. msk strain, mesenteric adenitis, psoas abscess. laboratory results and imaging reviewed, basic labs and lytes +leukocytosis Cr elevated 2.5, has periods of CKD LFTs/lipase_wnl UA with granular casts, protein and small ketones, no s/s infection EKG normal sinus rhythm, no interval abnormalities, narrow QRS, ST and T wave segments and morphology normal. Nonspecific T wave abnormalities CT a/p with acute appy, appendicolith, microperf? ED course -interventions: abx, IVF, analgesia - consults and recommendations: Dr Zapien surgery for acute appy, IV metro and levaquin, IVF and will come to eval admit medical management, NPO, pain control, appy. 03/29/19 16:35 03/29/19 18:11
[2019-03-29] MEDS ORDERED: ACETAMINOPHEN 325 MG TABLET (FP) ONE (16:00)
[2019-03-29] MEDS ORDERED: SODIUM CHLORIDE 1,000 ML IV SCH (16:30)
[2019-03-29 17:43] LABS: INR 1.12 (0.83-1.09); PROTHROMBIN TIME (PATIENT) 13.2 SEC (9.7-13.0)
--- NOTE | 2019-03-29 18:01 | HP ---
<Adan Loredo - Last Filed: 03/29/19 18:01> CHIEF COMPLAINT: PCP: HISTORY OF PRESENT ILLNESS: ER course was notable for: (1) (2) (3) Recent Travel: PAST MEDICAL HISTORY: PAST SURGICAL HISTORY: Social History: Smoking: Alcohol: Drugs: Allergies piperacillin [From Zosyn] Allergy (Verified 11/13/18 12:35) tazobactam [From Zosyn] Allergy (Verified 11/13/18 12:35) HOME MEDICATIONS: Home Medications Medication Instructions Recorded Atorvastatin Calcium 40 mg PO HS 08/10/16 Insulin Degludec [Tresiba 55 units SQ HS 01/01/17 Flextouch U-100] Aspirin Coated [Ecotrin -] 81 mg PO DAILY tablet.ec 07/20/17 Insulin Aspart (Niacinamide) 24 unit SQ TID 07/04/18 [Fiasp 100 Unit/ml Vial] Semaglutide [Ozempic] 0.25 mg SQ Q30D 10/03/18 Pantoprazole Sodium 40 mg PO PRN PRN 10/19/18 Clopidogrel Bisulfate [Plavix -] 75 mg PO DAILY tablet 11/17/18 Metoprolol Succinate [Toprol XL -] 25 mg PO HS tab.sr.24h 11/17/18 Sulfamethoxazole/Trimethoprim 1 each PO BID 7 Days #14 tablet 03/06/19 [Bactrim Ds Tablet] REVIEW OF SYSTEMS CONSTITUTIONAL: Absent: fever, chills, diaphoresis, generalized weakness, malaise, loss of appetite, weight change HEENT: Absent: rhinorrhea, nasal congestion, throat pain, throat swelling, difficulty swallowing, mouth swelling, ear pain, eye pain, visual changes CARDIOVASCULAR: Absent: chest pain, syncope, palpitations, irregular heart rate, lightheadedness , peripheral edema RESPIRATORY: Absent: cough, shortness of breath, dyspnea with exertion, orthopnea, wheezing, stridor, hemoptysis GASTROINTESTINAL: Absent: abdominal pain, abdominal distension, nausea, vomiting, diarrhea, constipation, melena, hematochezia GENITOURINARY: Absent: dysuria, frequency, urgency, hesitancy, hematuria, flank pain, genital pain MUSCULOSKELETAL: Absent: myalgia, arthralgia, joint swelling, back pain, neck pain SKIN: Absent: rash, itching, pallor HEMATOLOGIC/IMMUNOLOGIC: Absent: easy bleeding, easy bruising, lymphadenopathy, frequent infections ENDOCRINE: Absent: unexplained weight gain, unexplained weight loss, heat intolerance, cold intolerance NEUROLOGIC: Absent: headache, focal weakness or paresthesias, dizziness, unsteady gait, seizure, mental status changes, bladder or bowel incontinence PSYCHIATRIC: Absent: anxiety, depression, suicidal or homicidal ideation, hallucinations. PHYSICAL EXAMINATION Vital Signs - 24 hr 03/29/19 03/29/19 13:16 16:07 Temperature 98.6 F Pulse Rate 108 H Pulse Rate [ 85 Right Radial] Respiratory 16 18 Rate Blood Pressure 90/59 L Blood Pressure 122/78 [Left Arm] O2 Sat by Pulse 98 98 Oximetry (%) GENERAL: Awake, alert, and fully oriented, in no acute distress. HEAD: Normal with no signs of trauma. EYES: Pupils equal, round and reactive to light, extraocular movements intact, sclera anicteric, conjunctiva clear. No lid lag. EARS, NOSE, THROAT: Ears normal, nares patent, oropharynx clear without exudates. Moist mucous membranes. NECK: Normal range of motion, supple without lymphadenopathy, JVD, or masses. LUNGS: Breath sounds equal, clear to auscultation bilaterally. No wheezes, and no crackles. No accessory muscle use. HEART: Regular rate and rhythm, normal S1 and S2 without murmur, rub or gallop. ABDOMEN: Soft, nontender, not distended, normoactive bowel sounds, no guarding, no rebound, no masses. No hepatomegaly or splenomegaly. MUSCULOSKELETAL: Normal range of motion at all joints. No bony deformities or tenderness. No CVA tenderness. UPPER EXTREMITIES: 2+ pulses, warm, well-perfused. No cyanosis. No clubbing. No peripheral edema. LOWER EXTREMITIES: 2+ pulses, warm, well-perfused. No calf tenderness. No peripheral edema. NEUROLOGICAL: Cranial nerves II-XII intact. Normal speech. Normal gait. PSYCHIATRIC: Cooperative. Good eye contact. Appropriate mood and affect. SKIN: Warm, dry, normal turgor, no rashes or lesions noted, normal capillary refill. Laboratory Results - last 24 hr 03/29/19 03/29/19 03/29/19 14:00 14:00 14:00 WBC 14.5 H RBC 4.98 Hgb 13.7 Hct 40.4 D MCV 81.0 MCH 27.4 D MCHC 33.8 RDW 15.6 D Plt Count 254 D MPV 9.0 Absolute Neuts (auto) 12.5 H Neutrophils % 86.0 H Lymphocytes % 5.0 L D Monocytes % 7.7 Eosinophils % 0.8 D Basophils % 0.5 Nucleated RBC % 0 PT with INR INR PTT (Actin FS) Sodium 135 L Potassium 4.3 Chloride 103 Carbon Dioxide 22 Anion Gap 10 BUN 52.6 H Creatinine 2.5 H Est GFR (CKD-EPI)AfAm 31.18 Est GFR (CKD-EPI)NonAf 26.90 Random Glucose 194 H Calcium 8.8 Total Bilirubin 0.8 AST 17 ALT 24 Alkaline Phosphatase 116 Total Protein 7.6 Albumin 3.4 Urine Color Dk yellow Urine Appearance Cloudy Urine pH 5.0 Ur Specific [place] 1.019 Urine Protein 2+ H Urine Glucose (UA) Trace Urine Ketones Trace H Urine Blood Negative Urine Nitrite Negative Urine Bilirubin Negative Urine Urobilinogen 1.0 Ur Leukocyte Esterase Negative Urine WBC (Auto) 2 Urine Casts (Auto) 1 U Pathogenic Cast Auto 2-3 granular casts U Epithel Cells (Auto) 2.0 Urine Bacteria (Auto) 3.6 03/29/19 03/29/19 17:05 17:05 WBC RBC Hgb Hct MCV MCH MCHC RDW Plt Count MPV Absolute Neuts (auto) Neutrophils % Lymphocytes % Monocytes % Eosinophils % Basophils % Nucleated RBC % PT with INR 13.20 H INR 1.12 H PTT (Actin FS) 28.0 Sodium Potassium Chloride Carbon Dioxide Anion Gap BUN Creatinine Est GFR (CKD-EPI)AfAm Est GFR (CKD-EPI)NonAf Random Glucose Calcium Total Bilirubin AST ALT Alkaline Phosphatase Total Protein Albumin Urine Color Urine Appearance Urine pH Ur Specific [place] Urine Protein Urine Glucose (UA) Urine Ketones Urine Blood Urine Nitrite Urine Bilirubin Urine Urobilinogen Ur Leukocyte Esterase Urine WBC (Auto) Urine Casts (Auto) U Pathogenic Cast Auto U Epithel Cells (Auto) Urine Bacteria (Auto) ASSESSMENT/PLAN: ATTENDING PHYSICIAN STATEMENT I saw and evaluated the patient. I reviewed the resident's note and discussed the case with the resident. I agree with the resident's findings and plan as documented. SUBJECTIVE: OBJECTIVE: ASSESSMENT AND PLAN: <Kody Boone - Last Filed: 03/30/19 10:03> Patient presents with complicated diverticulitis; empiric abx given in ER and has some improvemnt of pain. CT scan shows acute appendicitis with an intraluminal appendolith and several punctate foci of air noted in the ventral appendiceal wall or within the soft tissues; implies dx of complicated appendicitis. Surgery called by the ER and they recommended CV clearance given the presence of the stent. ID consulted for antibiotic management. 10 sys ROS done and negative aside from HPI PMH, PSH, FH, Sh reviewed. No sudden cardiac or hx malignant hyperthermia , no FH poor anesthesia rxn or GI malig VS, labs, imaging reviewed (discussed above CT scan which was personally reviewed) NAD, AAO, resting in bed NC AT EOMI PERRLA RRR s1/2 no mgr Tender diffusely R-side without guarding, no rebound, +psoas, -rovsings A/P: Patient presents with acute complicated appendicitis. His case is complicated by the presence of underlying stent. Will consult CV for guidance regarding Surgical input noted; continue broad spectrum abx ATTENDING PHYSICIAN STATEMENT I saw and evaluated the patient. I reviewed the resident's note and discussed the case with the resident. I agree with the resident's findings and plan as documented. SUBJECTIVE: OBJECTIVE: ASSESSMENT AND PLAN:
[2019-03-29] MEDS: INSULIN SLIDING SCALE (NOVOLOG) 1 VIAL SQ SCH (19:55)
[2019-03-29 20:43] VITALS: BMI 27.6
[2019-03-30] MEDS: INSULIN SLIDING SCALE (NOVOLOG) 1 VIAL SQ SCH ×4 (00:05→19:39)
[2019-03-30] MEDS: ACETAMINOPHEN 1000 MG/100 ML VIAL (NON FORMULARY) IVPB PRN ×3 (00:21→21:44)
[2019-03-30 03:01] LABS: BASO % 0.3 % (0-2.0); EOS % 2.2 % (0-4.5); HEMATOCRIT 36.3 % (35.4-49); HEMOGLOBIN 12.1 GM/dL (11.7-16.9); MCH 27.3 pg (25.7-33.7); MCHC 33.4 g/dl (32.0-35.9); MEAN CELL VOLUME 81.7 fl (80-96); MEAN PLT VOLUME 9.1 fl (7.5-11.1); MONO % 8.3 % (3.8-10.2); NEUT % 83.2 % (42.8-82.8); PLATELET COUNT 177 K/MM3 (134-434); RBC 4.45 M/mm3 (4.00-5.60); RDW 15.6 % (11.9-15.9); WHITE BLOOD COUNT 12.1 K/mm3 (4.0-10.0)
[2019-03-30 09:07] LABS: ALBUMIN 2.9 g/dl (3.4-5.0); BILIRUBIN,TOTAL 0.6 mg/dL (0.2-1); BLOOD UREA NITROGEN 47.6 mg/dL (7-18); CALCIUM 8.3 mg/dL (8.5-10.1); CREATININE 1.6 mg/dL (0.55-1.3); MAGNESIUM 2.2 mg/dL (1.8-2.4); PHOSPHOROUS 2.8 mg/dL (2.5-4.9); POTASSIUM 4.5 mmol/L (3.5-5.1); TOT PROT 6.8 g/dl (6.4-8.2)
--- NOTE | 2019-03-30 09:12 | PN ---
Progress Note (short form) - Note Progress Note: ID consult dictated imp/reccd 58 yo man admitted with RLQ pain with vomiting since Tuesday vomiting stopped yesterday no fevers history of DM PVD has a stent in the right leg bilateral toe amputations history of osteomyelitis history of MRSA in the past zosyn allergy (near syncope)-tolerated cephalosporins and carbapenems PE with RLQ pain ct scan with appendicitis labs with leukocytosis and ARA received levaquin and flagyl in the ED awaiting surgery evaluation switch to ertapenem Problem List - Problems (1) Appendicitis Code(s): K37 - UNSPECIFIED APPENDICITIS Qualifiers: Qualified Code(s): K35.80 - Unspecified acute appendicitis (2) Acute on chronic renal failure Code(s): N17.9 - ACUTE KIDNEY FAILURE, UNSPECIFIED; N18.9 - CHRONIC KIDNEY DISEASE, UNSPECIFIED Qualifiers: Qualified Code(s): N17.9 - Acute kidney failure, unspecified; N18.9 - Chronic kidney disease, unspecified (3) Diabetes mellitus Code(s): E11.9 - TYPE 2 DIABETES MELLITUS WITHOUT COMPLICATIONS (4) PVD (peripheral vascular disease) Code(s): I73.9 - PERIPHERAL VASCULAR DISEASE, UNSPECIFIED
--- NOTE | 2019-03-30 10:16 | CONS ---
INFECTIOUS DISEASE CONSULTATION DATE OF CONSULTATION: DATE OF DICTATION: 03/30/2019 REQUESTING PHYSICIAN: Hospitalist service HISTORY: This is a 58-year-old man admitted with right lower quadrant pain and vomiting since Tuesday. He denies any fevers and chills. His vomiting stopped yesterday, but he had persistent right lower quadrant pain, and he came to the emergency room. He has a prior history of diabetes and peripheral vascular disease. Has had multiple toe amputations. He was evaluated in the emergency room. He was noted to have a white count of 14,000. He had no fever. He had a CAT scan of his abdomen and pelvis consistent with appendicitis, and he was admitted for further care. Surgical consult is pending, and he is n.p.o. He reports he has continued abdominal pain, but he has stopped vomiting. He received Levaquin and Flagyl in the emergency room as he has an allergy to PIPERACILLIN/TAZOBACTAM in the past. No blood cultures were drawn in the emergency room. PAST MEDICAL HISTORY: Notable for history of diabetes, hypertension, peripheral neuropathy, hyperlipidemia, peripheral vascular disease, renal insufficiency, prostate cancer status post seed implants, osteoarthritis, diabetes. He has a history of MRSA in the past in his leg wounds. PAST SURGICAL HISTORY: Notable for left TMA status post amputation of all of the toes of his right foot. He has a stent in the left leg. He is followed by Dr. Byrd in the clinic and has been doing well with respect to his legs. His last surgery was in October at which time he had a right TMA done in October. It has healed quite well. His last course of antibiotics was a week of Bactrim in February. ALLERGIES: He is allergic to PIPERACILLIN/TAZOBACTAM, which caused near syncope. He tolerates cephalosporins and Carbapenems. SOCIAL HISTORY: Smoking history, he is a former smoker. He quit in 2012. Former marijuana use. No alcohol use. He lives alone. 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 MEDICATIONS: At home include semaglutide, pantoprazole, metoprolol, insulin, Plavix, atorvastatin, and aspirin. FAMILY HISTORY: Noncontributory. REVIEW OF SYSTEMS: He denies diarrhea. He has been having bowel movements. His vomiting has stopped, and he has no cough or shortness of breath. He has no dysuria. He reports his bilateral TMAs are clean and dry. PHYSICAL EXAMINATION: Vital Signs: He has had no fever. Temperature is 98.1, pulse is 78, blood pressure 155/78, respiratory rate is 18. He is saturating 97% on room air. HEENT: He is normocephalic. His eyes are anicteric. Neck: Supple. Lungs: Clear to auscultation. Heart: Regular rate and rhythm. Abdomen: Soft. He has pain in the right lower quadrant. Extremities: Bilateral TMA. He has 2 small erosions in the left TMA. The right TMA he has a dry dressing, and the incision looks well healed. LABORATORIES ON ADMISSION: White count 14.5, today is 12.1, hemoglobin is 12.1 with platelets of 177. His INR is 1.12, BUN on admission 52, this morning 47, creatinine 2.5, this morning 1.6. Normal liver function tests. Urinalysis is negative. As stated, a urine culture for unclear reasons was sent. CAT scan findings are notable for appendicitis. In summary, this is a 58-year-old man with diabetes admitted with appendicitis, acute kidney injury in the setting of diabetes and peripheral vascular disease. He is in MRSA isolation. We will obtain naris swabs to see if the isolation needs to be continued, which has been ordered. Would switch him from Levaquin and Flagyl to ertapenem once daily. We are awaiting surgery follow up and evaluation for surgery. Further recommendations to follow. At this point, he has been on antibiotics overnight so would send cultures if he has fever or if his white count worsens. Jameson [id number]
[2019-03-30] MEDS: PANTOPRAZOLE SODIUM 40 MG VIAL IVPUSH SCH (10:59)
[2019-03-30] MEDS: ERTAPENEM SODIUM 1 GM in SODIUM CHLORIDE 50 ML IVPB SCH (11:36)
--- NOTE | 2019-03-30 12:52 | CONSULT ---
Consult Consult Specialty:: General Surgery Referred by:: Arnold Huang Reason for Consultation:: appendicitis, likely perforated - History of Present Illness Chief Complaint: RLQ pain, N/V History of Present Illness: 58yo diabetic M with HTN, HLD, GERD, PVD s/p LLE angioplasty and stenting, CKD, prostate CA s/p brachytherapy/radiation seeds, s/p bilateral TMAs, began having RLQ pain on Tuesday associated with N/V, which persisted through the week. He was able to eat an egg and some tea yesterday morning, but the pain was still there, and he came to ER. Denies F/C, constipation or diarrhea, did have dark/ reddish urine. In ER, he had wbc 14, higher than baseline BUN/Cr at 52/2.5, and CT showed very enlarged appendix with elongated appendicolith, surrounding edema /stranding/fluid and some locules of air either in wall of appendix or extraluminal, consistent with perforated appendicitis but without true phlegmon or drainable collection. He had his daily aspirin and plavix last yesterday. He has been given IV fluids, pain meds, IV antibiotics and has been NPO. Surgery was asked to assess. He is seen and examined in bed. He reports still having pain RLQ, but his N/V had stopped. He is concerned about wanting to get his appendix out. He c/o dry mouth and wanting to be able to have some water. He did have a colonoscopy sometime in the last 10 years, but doesn't remember how far back. They took out some polyps at that time. He has not had one subsequently. 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: Peripheral Neuropathy Cardio/Vascular: Yes: HTN, Hyperlipdemia, Other (peripheral vascular disease) Gastrointestinal: Yes: GERD Renal/: Yes: Renal Inusuff, Cancer (Prostate Cancer s/p seed implantations) Infectious Disease: Yes: MRSA (from foot bone cultures in past) Musculoskeletal: Yes: Osteoarthritis Endocrine: Yes: Diabetes Mellitus (Insulin dependent) - Past Surgical History Past Surgical History: Yes: Amputation (lt tma, rt tma after multiple toe amputations), Colonoscopy, Stent (vascular stent left leg) Additional Surgical History: prostate radiation seed implants - Alcohol/Substance Use Hx Alcohol Use: No History of Substance Use: reports: Marijuana (in past) - Smoking History Smoking history: Former smoker Have you smoked in the past 12 months: No Aproximately how many cigarettes per day: 15 If you are a former smoker, when did you quit?: 2012 - Social History Usual Living Arrangement: Other (with family) ADL: Independent Occupation: Former [employer] History of Recent Travel: No Home Medications - Allergies Allergies/Adverse Reactions: Allergies Allergy/AdvReac Type Severity Reaction Status Date / Time piperacillin [From Zosyn] Allergy Verified 11/13/18 12:35 tazobactam [From Zosyn] Allergy Verified 11/13/18 12:35 - Home Medications Home Medications: Ambulatory Orders Atorvastatin Calcium 40 mg PO HS 08/10/16 Insulin Degludec [Tresiba Flextouch U-100] 55 units SQ HS 01/01/17 Aspirin Coated [Ecotrin -] 81 mg PO DAILY tablet.ec 07/20/17 Insulin Aspart (Niacinamide) [Fiasp 100 Unit/ml Vial] 24 unit SQ TID 07/04/18 Semaglutide [Ozempic] 0.25 mg SQ Q30D 10/03/18 Pantoprazole Sodium 40 mg PO PRN PRN 10/19/18 Clopidogrel Bisulfate [Plavix -] 75 mg PO DAILY tablet 11/17/18 Metoprolol Succinate [Toprol XL -] 25 mg PO HS tab.sr.24h 11/17/18 Family Medical History Family Hx Cancer: Sister (breast, dx under 40, now ok) Family Hx Coronary Artery Disease: Mother (heart attack) Family Hx Diabetes: Mother (NIDDM), Father (insulin-dependent) Review of Systems - Review of Systems Constitutional: denies: Chills, Fever Eyes: denies: Blurred Vision, Recent Change in Vision HENT: denies: Difficult Swallowing, Throat Pain Neck: denies: Swollen Glands, Tenderness Cardiovascular: denies: Chest Pain, Palpitations Respiratory: denies: Cough, SOB Gastrointestinal: reports: Abdominal Pain (with hpi), Nausea (with hpi), Vomiting (with hpi). denies: Constipation, Diarrhea Genitourinary: reports: Other (see hpi - dark/reddish urine). denies: Burning, Dysuria Musculoskeletal: denies: Back Pain, Joint Pain, Muscle Pain Integumentary: denies: Change in Color, Rash Neurological: denies: Dizziness, Headache Psychiatric: denies: Anxiety, Depression Physical Exam Vital Signs: Vital Signs Temperature 98.1 F 03/30/19 08:47 Pulse Rate 78 03/30/19 08:47 Respiratory Rate 18 03/30/19 08:47 Blood Pressure 155/78 03/30/19 08:47 O2 Sat by Pulse Oximetry (%) 97 03/30/19 08:47 Constitutional: Yes: Well Nourished, No Distress, Calm Eyes: Yes: Conjunctiva Clear, EOM Intact HENT: Yes: Atraumatic, Normocephalic Neck: Yes: Supple, Trachea Midline Cardiovascular: Yes: Regular Rate and Rhythm Respiratory: Yes: Regular, CTA Bilaterally Gastrointestinal: Yes: Normal Bowel Sounds, Soft, Distention (mild), Hernia ( reducible umbilical), Tenderness (RLQ focally without guarding). No: Tenderness , Epigastrium ...Rectal Exam: Yes: Deferred Renal/: No: CVA Tenderness - Left, CVA Tenderness - Right Musculoskeletal: No: Joint Stiffness, Joint Swelling Extremities: Yes: Amputation (bilateral TMAs (feet) - dressed). No: Cool, Cyanosis Edema: No Peripheral Pulses WNL: No (difficult to palpate in feet - per pt, sometimes they need Doppler) Integumentary: No: Jaundice, Rash Neurological: Yes: Alert, Oriented Psychiatric: Yes: Alert, Oriented Labs: CBC, BMP 03/30/19 02:40 03/30/19 07:00 CMP Sodium 139 mmol/L (136-145) 03/30/19 07:00 Potassium 4.5 mmol/L (3.5-5.1) 03/30/19 07:00 Chloride 110 mmol/L (98-107) H 03/30/19 07:00 Carbon Dioxide 18 mmol/L (21-32) L 03/30/19 07:00 Anion Gap 11 MMOL/L (8-16) 03/30/19 07:00 BUN 47.6 mg/dL (7-18) H 03/30/19 07:00 Creatinine 1.6 mg/dL (0.55-1.3) H 03/30/19 07:00 Est GFR (CKD-EPI)AfAm 53.48 03/30/19 07:00 Est GFR (CKD-EPI)NonAf 46.14 03/30/19 07:00 POC Glucometer 200 UNITS (80-120) 03/30/19 11:39 Random Glucose 194 mg/dL (74-106) H 03/30/19 07:00 Calcium 8.3 mg/dL (8.5-10.1) L 03/30/19 07:00 Phosphorus 2.8 mg/dL (2.5-4.9) 03/30/19 07:00 Magnesium 2.2 mg/dL (1.8-2.4) 03/30/19 07:00 Total Bilirubin 0.6 mg/dL (0.2-1) 03/30/19 07:00 AST 18 U/L (15-37) 03/30/19 07:00 ALT 24 U/L (13-61) 03/30/19 07:00 Alkaline Phosphatase 106 U/L (45-117) 03/30/19 07:00 Total Protein 6.8 g/dl (6.4-8.2) 03/30/19 07:00 Albumin 2.9 g/dl (3.4-5.0) L 03/30/19 07:00 wbc down from 14 BUN/Cr coming down (baseline Cr 1.1-1.3 by [facility]) INR, PTT INR 1.12 (0.83-1.09) H 03/29/19 17:05 Urine Test Results Urine Color Dk yellow 03/29/19 14:00 Urine Appearance Cloudy 03/29/19 14:00 Urine pH 5.0 (5.0-8.0) 03/29/19 14:00 Ur Specific Benedict 1.019 (1.010-1.035) 03/29/19 14:00 Urine Protein 2+ (NEGATIVE) H 03/29/19 14:00 Urine Glucose (UA) Trace (NEGATIVE) 03/29/19 14:00 Urine Ketones Trace (NEGATIVE) H 03/29/19 14:00 Urine Blood Negative (NEGATIVE) 03/29/19 14:00 Urine Nitrite Negative (NEGATIVE) 03/29/19 14:00 Urine Bilirubin Negative (NEGATIVE) 03/29/19 14:00 Ur Leukocyte Esterase Negative (NEGATIVE) 03/29/19 14:00 Microbiology 03/29/19 14:00 Urine Culture - Final Urine - Urine Clean Catch NO GROWTH OBTAINED Imaging - Results Chest X-ray: Report Reviewed (no acute process) Cat Scan: Report Reviewed, Image Reviewed (appendix very enlarged, with long appendicolith, edema/stranding/some fluid around it, few locules of air possibly in wall vs extraluminal? - no drainable collection) Problem List - Problems (1) Acute appendicitis with perforation and localized peritonitis, without abscess or gangrene Assessment/Plan: admitted to medicine NPO except essential meds (continue beta mily) - HOLD asa/plavix IVF - still somewhat dehydrated, will need to continue maintenance fluids expected to have some third-spacing from intraabdominal process ok for sparing ice chips for now - would wait on clears until pain/tenderness resolve continue antibiotics per ID trend labs nephrology to see pain meds prn - nonnarcotics first line GI/DVT prophylaxis (home PPI) given ASA/Plavix use up through yesterday, duration of symptoms, and perforated nature of appendicitis, would treat conservatively with IV antibiotics and bowel rest (until pain/tenderness resolve), and plan for interval appendectomy in future once recovered surgery at this time would carry high risks of bleeding, potential for injury to adjacent bowel and tissues, and possible breakdown of staple lines if he is not improving clinically after at least 48-72 hours on antibiotics, would rescan with PO contrast to evaluate for drainable fluid collection he should be medically optimized for possible OR regardless - as surgery could still be required discussed with Dr. Cheung will follow with you Code(s): K35.32 - ACUTE APPENDICITIS WITH PERF AND LOC PERITONITIS, W/O ABSCS (2) RLQ abdominal pain Code(s): R10.31 - RIGHT LOWER QUADRANT PAIN (3) Dehydration Assessment/Plan: improving Code(s): E86.0 - DEHYDRATION (4) CKD stage 3 due to type 2 diabetes mellitus Code(s): E11.22 - TYPE 2 DIABETES MELLITUS W DIABETIC CHRONIC KIDNEY DISEASE; N18.3 - CHRONIC KIDNEY DISEASE, STAGE 3 (MODERATE) (5) HTN (hypertension) Assessment/Plan: continue beta mily Code(s): I10 - ESSENTIAL (PRIMARY) HYPERTENSION Qualifiers: Hypertension type: essential hypertension Qualified Code(s): I10 - Essential (primary) hypertension (6) Hyperlipidemia Code(s): E78.5 - HYPERLIPIDEMIA, UNSPECIFIED Qualifiers: Hyperlipidemia type: unspecified Qualified Code(s): E78.5 - Hyperlipidemia , unspecified (7) Diabetes mellitus with diabetic peripheral angiopathy without gangrene, with long-term current 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 Code(s): E11.51 - TYPE 2 DIABETES W DIABETIC PERIPHERAL ANGIOPATH W/O GANGRENE; Z79.4 - PRISON (CURRENT) USE OF INSULIN Qualifiers: Diabetes mellitus type: type 2 Qualified Code(s): E11.51 - Type 2 diabetes mellitus with diabetic peripheral angiopathy without gangrene; Z79.4 - termination clerk (current) 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
--- NOTE | 2019-03-30 13:20 | PN ---
Progress Note, Physician Chief Complaint: patient seen and examined awake alert has RLQ pain on ertrapenem NPO off aspirin and plavix since 03/29 - Current Medication List Current Medications: Active Medications Acetaminophen (Ofirmev Injection -) 1,000 mg IVPB Q6H PRN PRN Reason: PAIN OR FEVER Last Admin: 03/30/19 00:21 Dose: 1,000 mg Atorvastatin Calcium (Lipitor -) 40 mg PO HS LISBETH Ertapenem 1 gm/ Sodium (Chloride) 50 mls @ 100 mls/hr IVPB DAILY LISBETH Last Admin: 03/30/19 11:36 Dose: 100 mls/hr Sodium Chloride (Normal Saline -) 1,000 mls @ 125 mls/hr IV ASDIR LISBETH Insulin Aspart (Novolog Vial Sliding Scale -) 1 vial SQ Q6HPO [facility]; Protocol Last Admin: 03/30/19 06:33 Dose: Not Given Metoprolol Succinate (Toprol Xl -) 25 mg PO HS LISBETH Pantoprazole Sodium (Protonix Iv) 40 mg IVPUSH DAILY [facility] Last Admin: 03/30/19 10:59 Dose: 40 mg - Objective Vital Signs: Vital Signs Temperature 98.1 F 03/30/19 08:47 Pulse Rate 78 03/30/19 08:47 Respiratory Rate 18 03/30/19 08:47 Blood Pressure 155/78 03/30/19 08:47 O2 Sat by Pulse Oximetry (%) 97 03/30/19 08:47 Constitutional: Yes: Calm Cardiovascular: Yes: Regular Rate and Rhythm, S1, S2 Respiratory: Yes: CTA Bilaterally Gastrointestinal: Yes: Hernia (umbilical), Tenderness (RLQ) Edema: No Neurological: Yes: Alert, Oriented Labs: CBC, BMP 03/30/19 02:40 03/30/19 07:00 INR, PTT INR 1.12 (0.83-1.09) H 03/29/19 17:05 Problem List - Problems (1) RLQ abdominal pain Assessment/Plan: NPO except meds leukocytosis ivf inc rate 125 cc/hr iv abx dc aspirin and plavix ct scan reviwed surgical consult appreicated iv ppI Code(s): R10.31 - RIGHT LOWER QUADRANT PAIN (2) HTN (hypertension) Assessment/Plan: metoprolol Code(s): I10 - ESSENTIAL (PRIMARY) HYPERTENSION Qualifiers: Hypertension type: essential hypertension Qualified Code(s): I10 - Essential (primary) hypertension (3) Hyperlipidemia Assessment/Plan: lipitor Code(s): E78.5 - HYPERLIPIDEMIA, UNSPECIFIED Qualifiers: Hyperlipidemia type: unspecified Qualified Code(s): E78.5 - Hyperlipidemia , unspecified (4) PVD (peripheral vascular disease) Assessment/Plan: stop aspirin nad plavix Code(s): I73.9 - PERIPHERAL VASCULAR DISEASE, UNSPECIFIED (5) Chronic kidney disease (CKD) Assessment/Plan: ivf renal consult Code(s): N18.9 - CHRONIC KIDNEY DISEASE, UNSPECIFIED Qualifiers: Chronic kidney disease stage: stage 3 (moderate) Qualified Code(s): N18.3 - Chronic kidney disease, stage 3 (moderate)
[2019-03-30] MEDS: SODIUM CHLORIDE 1,000 ML IV SCH (13:55)
--- NOTE | 2019-03-30 15:38 | CONSULT ---
Consult Consult Specialty:: Nephrology Reason for Consultation:: ARA - History of Present Illness Chief Complaint: abdominal pain History of Present Illness: Pt is a 58 year old male with pmhx of ckd, PVD s/p angioplasty, DM, HTN, HLD, and prostate ca who presents with abdominal pain. He was found to have appendicitis. He was found to be in acute renal failure and I was called to evaluate him. He still has abd pain. His renal function did improve with fluids. He did have hematuria yesterday. He denies dysuria. He does have history of CKD. 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 Cardio/Vascular: Yes: HTN, Hyperlipdemia, Other (peripheral vascular disease) Gastrointestinal: Yes: GERD Renal/: Yes: Renal Inusuff, Cancer (Prostate Cancer s/p seed implantations) Infectious Disease: Yes: MRSA (from foot bone cultures in past) Musculoskeletal: Yes: Osteoarthritis Endocrine: Yes: Diabetes Mellitus (Insulin dependent) - Past Surgical History Past Surgical History: Yes: Amputation (lt tma, rt tma after multiple toe amputations), Colonoscopy, Stent (vascular stent left leg) Additional Surgical History: prostate radiation seed implants - Alcohol/Substance Use Hx Alcohol Use: No History of Substance Use: reports: Marijuana (in past) - Smoking History Smoking history: Former smoker Have you smoked in the past 12 months: No Aproximately how many cigarettes per day: 15 If you are a former smoker, when did you quit?: 2012 - Social History Usual Living Arrangement: Other (with family) ADL: Independent 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 History of Recent Travel: No Home Medications - Allergies Allergies/Adverse Reactions: Allergies Allergy/AdvReac Type Severity Reaction Status Date / Time piperacillin [From Zosyn] Allergy Verified 11/13/18 12:35 tazobactam [From Zosyn] Allergy Verified 11/13/18 12:35 - Home Medications Home Medications: Ambulatory Orders Atorvastatin Calcium 40 mg PO HS 08/10/16 Insulin Degludec [Tresiba Flextouch U-100] 55 units SQ HS 01/01/17 Aspirin Coated [Ecotrin -] 81 mg PO DAILY tablet.ec 07/20/17 Insulin Aspart (Niacinamide) [Fiasp 100 Unit/ml Vial] 24 unit SQ TID 07/04/18 Semaglutide [Ozempic] 0.25 mg SQ Q30D 10/03/18 Pantoprazole Sodium 40 mg PO PRN PRN 10/19/18 Clopidogrel Bisulfate [Plavix -] 75 mg PO DAILY tablet 11/17/18 Metoprolol Succinate [Toprol XL -] 25 mg PO HS tab.sr.24h 11/17/18 Family Medical History Family History: Denies Review of Systems - Review of Systems Constitutional: reports: Malaise Eyes: reports: No Symptoms HENT: reports: No Symptoms Neck: reports: No Symptoms Cardiovascular: reports: No Symptoms Respiratory: reports: No Symptoms Gastrointestinal: reports: Abdominal Pain Genitourinary: reports: Hematuria Musculoskeletal: reports: No Symptoms Neurological: reports: No Symptoms Endocrine: reports: No Symptoms Hematology/Lymphatic: reports: No Symptoms Physical Exam Vital Signs: Vital Signs Temperature 98.7 F 03/30/19 14:21 Pulse Rate 85 03/30/19 14:21 Respiratory Rate 18 03/30/19 08:47 Blood Pressure 160/83 03/30/19 14:21 O2 Sat by Pulse Oximetry (%) 97 03/30/19 08:47 Constitutional: Yes: Calm Eyes: Yes: Conjunctiva Clear HENT: Yes: Atraumatic Neck: Yes: Supple Cardiovascular: Yes: S1, S2 Respiratory: Yes: CTA Bilaterally Gastrointestinal: Yes: Tenderness Renal/: Yes: WNL Edema: No Wound/Incision: Yes: Dressing Dry and Intact Neurological: Yes: Oriented Psychiatric: Yes: Oriented Labs: CBC, BMP 03/30/19 02:40 03/30/19 07:00 Laboratory Tests 11/17/18 03/29/19 03/29/19 07:00 14:00 14:00 Creatinine 1.1 2.5 H Urine Protein 2+ H Ur Random Sodium 03/30/19 03/30/19 01:30 07:00 Creatinine 1.6 H Urine Protein Ur Random Sodium 26 L Imaging - Results Cat Scan: Report Reviewed Problem List - Problems (1) Acute appendicitis with perforation and localized peritonitis, without abscess or gangrene Code(s): K35.32 - ACUTE APPENDICITIS WITH PERF AND LOC PERITONITIS, W/O ABSCS (2) Appendicitis Code(s): K37 - UNSPECIFIED APPENDICITIS Qualifiers: Appendicitis type: acute appendicitis Acute appendicitis type: unspecified acute appendicitis type Qualified Code(s): K35.80 - Unspecified acute appendicitis (3) Chronic kidney disease (CKD) Code(s): N18.9 - CHRONIC KIDNEY DISEASE, UNSPECIFIED Qualifiers: Chronic kidney disease stage: stage 3 (moderate) Qualified Code(s): N18.3 - Chronic kidney disease, stage 3 (moderate) Assessment/Plan Current Medications Generic Name Dose Route Start Last Admin Trade Name Freq PRN Reason Stop Dose Admin Acetaminophen 1,000 mg 03/29/19 18:43 03/30/19 15:01 Ofirmev Injection - IVPB 1,000 mg Q6H PRN Administration PAIN OR FEVER Atorvastatin Calcium 40 mg 03/30/19 22:00 Lipitor - PO HS LISBETH Ertapenem 1 gm/ Sodium 50 mls @ 100 mls/hr 03/30/19 10:30 03/30/19 11:36 Chloride IVPB 100 mls/hr DAILY LISBETH Administration Sodium Chloride 1,000 mls @ 125 mls/hr 03/30/19 12:42 03/30/19 13:55 Normal Saline - IV 125 mls/hr ASDIR LISBETH Administration Insulin Aspart 1 vial 03/29/19 19:00 03/30/19 13:53 Novolog Vial Sliding Scale - SQ Not Given Q6HPO LISBETH Protocol Metoprolol Succinate 25 mg 03/30/19 22:00 Toprol Xl - PO HS LISBETH Pantoprazole Sodium 40 mg 03/30/19 10:00 03/30/19 10:59 Protonix Iv IVPUSH 40 mg DAILY LISBETH Administration Impression 1. CKD 2. DFU 3. HTN 4. DM 5. hx proteinuria 6. hyperlipidemia 7. appendicitis 8. ARA Plan - cont fluids - renal function is improved - hematuria improved - check renal ultrasound when abd pain improves - repeat labs in am
[2019-03-30] MEDS: ATORVASTATIN CA 40 MG TABLET (FP) PO SCH (21:45)
[2019-03-30] MEDS ORDERED: metoPROLOL SUCCINATE 25 MG TAB.SR.24H (FP) PO SCH (22:00)
[2019-03-31] MEDS: SODIUM CHLORIDE 1,000 ML IV SCH ×3 (03:00→17:26)
[2019-03-31] MEDS: INSULIN SLIDING SCALE (NOVOLOG) 1 VIAL SQ SCH ×4 (06:50→17:23)
[2019-03-31 09:57] LABS: BASO % 0.4 % (0-2.0); EOS % 1.2 % (0-4.5); HEMATOCRIT 42.1 % (35.4-49); LYMPH % 5.9 % (8-40); MCH 27.5 pg (25.7-33.7); MCHC 33.2 g/dl (32.0-35.9); MEAN CELL VOLUME 82.8 fl (80-96); MEAN PLT VOLUME 8.7 fl (7.5-11.1); MONO % 5.6 % (3.8-10.2); NEUT % 86.9 % (42.8-82.8); PLATELET COUNT 195 K/MM3 (134-434); RBC 5.08 M/mm3 (4.00-5.60); RDW 15.7 % (11.9-15.9); WHITE BLOOD COUNT 13.4 K/mm3 (4.0-10.0)
[2019-03-31] MEDS ORDERED: PT OWN MED DRAWER 7, Y5N ONE (10:01)
[2019-03-31] MEDS: ERTAPENEM SODIUM 1 GM in SODIUM CHLORIDE 50 ML IVPB SCH (10:11)
[2019-03-31] MEDS: PANTOPRAZOLE SODIUM 40 MG VIAL IVPUSH SCH (10:11)
[2019-03-31 10:23] LABS: BILIRUBIN,TOTAL 0.6 mg/dL (0.2-1); BLOOD UREA NITROGEN 19.6 mg/dL (7-18); CALCIUM 8.6 mg/dL (8.5-10.1); CREATININE 1.1 mg/dL (0.55-1.3); MAGNESIUM 1.8 mg/dL (1.8-2.4); PHOSPHOROUS 2.3 mg/dL (2.5-4.9); POTASSIUM 4.6 mmol/L (3.5-5.1); TOT PROT 7.2 g/dl (6.4-8.2)
--- NOTE | 2019-03-31 11:13 | PN ---
Progress Note (short form) - Note Progress Note: RENAL Pt awake and alert comfortable, though still with pain in right lower quadrant no appetite and is npo Last Vital Signs Temp Pulse Resp BP Pulse Ox 97.9 F 82 18 159/87 97 03/31/19 05:59 03/31/19 05:59 10 05:59 03/31/19 05:59 03/30/19 20:46 lungs clear cvs s1s2 rr abd soft, +bs, tender ext -edema neuro a+ox3 CBC, BMP 03/31/19 09:40 03/31/19 09:40 Current Medications Generic Name Dose Route Start Last Admin Trade Name Freq PRN Reason Stop Dose Admin Acetaminophen 1,000 mg 03/29/19 18:43 03/30/19 21:44 Ofirmev Injection - IVPB 1,000 mg Q6H PRN Administration PAIN OR FEVER Atorvastatin Calcium 40 mg 03/30/19 22:00 03/30/19 21:45 Lipitor - PO 40 mg HS LISBETH Administration Ertapenem 1 gm/ Sodium 50 mls @ 100 mls/hr 03/30/19 10:30 03/31/19 10:11 Chloride IVPB 100 mls/hr DAILY LISBETH Administration Sodium Chloride 1,000 mls @ 125 mls/hr 03/30/19 12:42 03/31/19 10:11 Normal Saline - IV 125 mls/hr ASDIR LISBETH Administration Insulin Aspart 1 vial 03/29/19 19:00 03/31/19 06:50 Novolog Vial Sliding Scale - SQ Not Given Q6HPO LISBETH Protocol Metoprolol Succinate 25 mg 03/30/19 22:00 03/30/19 21:44 Toprol Xl - PO 25 mg HS LISBETH Administration Pantoprazole Sodium 40 mg 03/30/19 10:00 03/31/19 10:11 Protonix Iv IVPUSH 40 mg DAILY LISBETH Administration Impression 1. CKD 2. DFU 3. HTN 4. DM 5. hx proteinuria 6. hyperlipidemia 7. appendicitis 8. ARA improving Plan continue fluids and antibiotics per ID may still need surgery if not further improvement MV
--- NOTE | 2019-03-31 13:33 | PN ---
Progress Note, Physician Chief Complaint: Appendicitis History of Present Illness: NAD - Current Medication List Current Medications: Active Medications Acetaminophen (Ofirmev Injection -) 1,000 mg IVPB Q6H PRN PRN Reason: PAIN OR FEVER Last Admin: 03/30/19 21:44 Dose: 1,000 mg Atorvastatin Calcium (Lipitor -) 40 mg PO HS [facility] Last Admin: 03/30/19 21:45 Dose: 40 mg Ertapenem 1 gm/ Sodium (Chloride) 50 mls @ 100 mls/hr IVPB DAILY [facility] Last Admin: 03/31/19 10:11 Dose: 100 mls/hr Sodium Chloride (Normal Saline -) 1,000 mls @ 125 mls/hr IV ASDIR [facility] Last Admin: 03/31/19 10:11 Dose: 125 mls/hr Insulin Aspart (Novolog Vial Sliding Scale -) 1 vial SQ Q6HPO [facility]; Protocol Last Admin: 03/31/19 11:14 Dose: Not Given Metoprolol Succinate (Toprol Xl -) 25 mg PO HS [facility] Last Admin: 03/30/19 21:44 Dose: 25 mg Pantoprazole Sodium (Protonix Iv) 40 mg IVPUSH DAILY [facility] Last Admin: 03/31/19 10:11 Dose: 40 mg - Objective Vital Signs: Vital Signs Temperature 98.2 F 03/31/19 09:00 Pulse Rate 83 03/31/19 09:00 Respiratory Rate 17 03/31/19 09:00 Blood Pressure 156/81 03/31/19 09:00 O2 Sat by Pulse Oximetry (%) 99 03/31/19 09:00 Constitutional: Yes: Well Nourished, No Distress, Calm Cardiovascular: Yes: Regular Rate and Rhythm Respiratory: Yes: Regular Gastrointestinal: Yes: Hypoactive Bowel Sounds, Tenderness (RLQ) Genitourinary: Yes: WNL Musculoskeletal: Yes: WNL Extremities: Yes: WNL Edema: No Peripheral Pulses WNL: Yes Neurological: Yes: Alert, Oriented Psychiatric: Yes: Alert, Oriented Labs: CBC, BMP 03/31/19 09:40 03/31/19 09:40 INR, PTT INR 1.12 (0.83-1.09) H 03/29/19 17:05 Assessment/Plan (1) RLQ abdominal pain Assessment/Plan: -NPO except meds -leukocytosis -IVF inc rate 150 cc/hr -IV abx -aspirin and plavix on hold -CT scan reviewed -surgical consult appreciated -IV PPI -Pain management Code(s): R10.31 - RIGHT LOWER QUADRANT PAIN (2) HTN (hypertension) Assessment/Plan: -continue metoprolol Code(s): I10 - ESSENTIAL (PRIMARY) HYPERTENSION Qualifiers: Hypertension type: essential hypertension Qualified Code(s): I10 - Essential (primary) hypertension (3) Hyperlipidemia Assessment/Plan: -continue lipitor Code(s): E78.5 - HYPERLIPIDEMIA, UNSPECIFIED Qualifiers: Hyperlipidemia type: unspecified Qualified Code(s): E78.5 - Hyperlipidemia , unspecified (4) PVD (peripheral vascular disease) Assessment/Plan: -Hold aspirin nad plavix Code(s): I73.9 - PERIPHERAL VASCULAR DISEASE, UNSPECIFIED
--- NOTE | 2019-03-31 14:36 | PN ---
Progress Note (short form) - Note Progress Note: still some RLQ discomfort on ertapenem day #2 Vital Signs Period Temp Pulse Resp BP Sys/[place] Pulse Ox Last 24 Hr 97.9 F-98.2 F 82-84 17-18 156-166/81-91 97-99 cor-rrr lungs clear abd soft, mild RLQ pain to palpation legs with dressing intact CBC, BMP 03/31/19 09:40 03/31/19 09:40 Microbiology 03/29/19 14:00 Urine - Urine Clean Catch Urine Culture - Final NO GROWTH OBTAINED a/p appendicitis- conintue ertpaenem check crp to trend asa/plavix on hold f/u with surgery history of DM PVD has a stent in the right leg bilateral toe amputations history of osteomyelitis history of MRSA in the past zosyn allergy (near syncope)-tolerated cephalosporins and carbapenems Problem List - Problems (1) Appendicitis Code(s): K37 - UNSPECIFIED APPENDICITIS Qualifiers: Appendicitis type: acute appendicitis Acute appendicitis type: unspecified acute appendicitis type Qualified Code(s): K35.80 - Unspecified acute appendicitis (2) Acute on chronic renal failure Code(s): N17.9 - ACUTE KIDNEY FAILURE, UNSPECIFIED; N18.9 - CHRONIC KIDNEY DISEASE, UNSPECIFIED Qualifiers: Acute renal failure type: unspecified Chronic kidney disease stage: unspecified stage Qualified Code(s): N17.9 - Acute kidney failure, unspecified ; N18.9 - Chronic kidney disease, unspecified; N18.9 - Chronic kidney disease, unspecified (3) Diabetes mellitus Code(s): E11.9 - TYPE 2 DIABETES MELLITUS WITHOUT COMPLICATIONS Qualifiers: Diabetes mellitus type: type 1 Diabetes mellitus complication status: with unspecified complications (4) PVD (peripheral vascular disease) Code(s): I73.9 - PERIPHERAL VASCULAR DISEASE, UNSPECIFIED
--- NOTE | 2019-03-31 14:57 | PN ---
Progress Note, Physician History of Present Illness: Pt with perforated appendicitis without drainable collection, being treated conservatively. ASA/plavix on hold (LLE stent). He is seen and examined in bed. He reports less pain RLQ, only hurts mainly when people push on him. Last IV tylenol was last night. His dry mouth is much better than yesterday, but he still gets dry at times and is using ice chips sparingly. Had a formed, harder BM today. Voiding well. Ambulates in room, to bathroom. MRSA screen still pending. On Ertapenem per ID, day 2. - Current Medication List Current Medications: Active Medications Acetaminophen (Ofirmev Injection -) 1,000 mg IVPB Q6H PRN PRN Reason: PAIN OR FEVER Last Admin: 03/30/19 21:44 Dose: 1,000 mg Atorvastatin Calcium (Lipitor -) 40 mg PO HS [facility] Last Admin: 03/30/19 21:45 Dose: 40 mg Ertapenem 1 gm/ Sodium (Chloride) 50 mls @ 100 mls/hr IVPB DAILY [facility] Last Admin: 03/31/19 10:11 Dose: 100 mls/hr Sodium Chloride (Normal Saline -) 1,000 mls @ 150 mls/hr IV ASDIR [facility] Insulin Aspart (Novolog Vial Sliding Scale -) 1 vial SQ Q6HPO [facility]; Protocol Last Admin: 03/31/19 11:14 Dose: Not Given Metoprolol Succinate (Toprol Xl -) 25 mg PO HS [facility] Last Admin: 03/30/19 21:44 Dose: 25 mg Pantoprazole Sodium (Protonix Iv) 40 mg IVPUSH DAILY [facility] Last Admin: 03/31/19 10:11 Dose: 40 mg - Objective Vital Signs: Vital Signs Temperature 98.2 F 03/31/19 09:00 Pulse Rate 83 03/31/19 09:00 Respiratory Rate 17 03/31/19 09:00 Blood Pressure 156/81 03/31/19 09:00 O2 Sat by Pulse Oximetry (%) 99 03/31/19 09:00 Constitutional: Yes: Well Nourished, No Distress, Calm Eyes: Yes: Conjunctiva Clear, EOM Intact HENT: Yes: Atraumatic, Normocephalic Gastrointestinal: Yes: Normal Bowel Sounds, Soft, Tenderness (mainly/focally RLQ and lower into pelvis, less suprapubic and RUQ, no guarding). No: Distention Genitourinary: No: CVA Tenderness - Left, CVA Tenderness - Right Extremities: Yes: Amputation (bilateral TMAs, dressed). No: Cool, Cyanosis Integumentary: No: Jaundice, Rash Neurological: Yes: Alert, Oriented Labs: CBC, BMP 03/31/19 09:40 03/31/19 09:40 CMP Sodium 143 mmol/L (136-145) 03/31/19 09:40 Potassium 4.6 mmol/L (3.5-5.1) 03/31/19 09:40 Chloride 113 mmol/L (98-107) H 03/31/19 09:40 Carbon Dioxide 20 mmol/L (21-32) L 03/31/19 09:40 Anion Gap 10 MMOL/L (8-16) 03/31/19 09:40 BUN 19.6 mg/dL (7-18) H 03/31/19 09:40 Creatinine 1.1 mg/dL (0.55-1.3) 03/31/19 09:40 Est GFR (CKD-EPI)AfAm 84.12 03/31/19 09:40 Est GFR (CKD-EPI)NonAf 72.58 03/31/19 09:40 POC Glucometer 170 UNITS (80-120) 03/31/19 11:11 Random Glucose 188 mg/dL (74-106) H 03/31/19 09:40 Calcium 8.6 mg/dL (8.5-10.1) 03/31/19 09:40 Phosphorus 2.3 mg/dL (2.5-4.9) L 03/31/19 09:40 Magnesium 1.8 mg/dL (1.8-2.4) 03/31/19 09:40 Total Bilirubin 0.6 mg/dL (0.2-1) 03/31/19 09:40 AST 18 U/L (15-37) 03/31/19 09:40 ALT 23 U/L (13-61) 03/31/19 09:40 Alkaline Phosphatase 113 U/L (45-117) 03/31/19 09:40 Total Protein 7.2 g/dl (6.4-8.2) 03/31/19 09:40 Albumin 3.0 g/dl (3.4-5.0) L 03/31/19 09:40 BUN/Cr back to his baseline range wbc up slightly but H/H also increased Microbiology 03/29/19 14:00 Urine - Urine Clean Catch Urine Culture - Final NO GROWTH OBTAINED MRSA screens pending from yesterday Problem List - Problems (1) Acute appendicitis with perforation and localized peritonitis, without abscess or gangrene Assessment/Plan: admitted to medicine NPO except essential meds (continue beta mily) - HOLD asa/plavix IVF - better hydrated but Hb up 2g - continue IV fluids expected to have some third-spacing from intraabdominal process ok for sparing ice chips - would wait on clears until tenderness improves will reassess in am continue antibiotics per ID trend labs nephrology on board pain meds prn - IV tylenol first line - encouraged to use as needed GI/DVT prophylaxis (home PPI) given ASA/Plavix use, duration of symptoms, and perforated nature of appendicitis, would treat conservatively with IV antibiotics and bowel rest ( until pain/tenderness resolve), and plan for interval appendectomy in future once recovered surgery at this time would carry high risks of bleeding, potential for injury to adjacent bowel and tissues, and possible breakdown of staple lines if he is not improving clinically after at least 48-72 hours on antibiotics, would rescan with PO contrast to evaluate for drainable fluid collection he should be medically optimized for possible OR regardless - as surgery could still be required discussed with VITALIY De - will also have cardiology see Code(s): K35.32 - ACUTE APPENDICITIS WITH PERF AND LOC PERITONITIS, W/O ABSCS (2) RLQ abdominal pain Assessment/Plan: improved, still quite tender Code(s): R10.31 - RIGHT LOWER QUADRANT PAIN (3) Dehydration Assessment/Plan: improved, Hb up - increase fluids slightly monitor closely, trend labs Code(s): E86.0 - DEHYDRATION (4) CKD stage 3 due to type 2 diabetes mellitus Code(s): E11.22 - TYPE 2 DIABETES MELLITUS W DIABETIC CHRONIC KIDNEY DISEASE; N18.3 - CHRONIC KIDNEY DISEASE, STAGE 3 (MODERATE) (5) HTN (hypertension) Assessment/Plan: continue home beta mily BP remain a little high defer to med/cardio Code(s): I10 - ESSENTIAL (PRIMARY) HYPERTENSION Qualifiers: Hypertension type: essential hypertension Qualified Code(s): I10 - Essential (primary) hypertension (6) Hyperlipidemia Code(s): E78.5 - HYPERLIPIDEMIA, UNSPECIFIED Qualifiers: Hyperlipidemia type: unspecified Qualified Code(s): E78.5 - Hyperlipidemia , unspecified (7) Diabetes mellitus with diabetic peripheral angiopathy without gangrene, with long-term current 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 Code(s): E11.51 - TYPE 2 DIABETES W DIABETIC PERIPHERAL ANGIOPATH W/O GANGRENE; Z79.4 - PUBLIC HEALTH VETERINARIAN (CURRENT) USE OF INSULIN Qualifiers: Diabetes mellitus type: type 2 Qualified Code(s): E11.51 - Type 2 diabetes mellitus with diabetic peripheral angiopathy without gangrene; Z79.4 - exterminator helper (current) 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
[2019-03-31] MEDS ORDERED: metoPROLOL SUCCINATE 25 MG TAB.SR.24H (FP) PO ONE (15:51)
[2019-03-31] MEDS: ATORVASTATIN CA 40 MG TABLET (FP) PO SCH (22:32)
[2019-03-31] MEDS: ACETAMINOPHEN 1000 MG/100 ML VIAL (NON FORMULARY) IVPB PRN (23:33)
[2019-04-01] MEDS: SODIUM CHLORIDE 1,000 ML IV SCH ×3 (01:51→21:18)
[2019-04-01] MEDS: INSULIN SLIDING SCALE (NOVOLOG) 1 VIAL SQ SCH ×4 (06:13→17:06)
[2019-04-01 08:10] LABS: BASO % 0.5 % (0-2.0); EOS % 1.7 % (0-4.5); HEMOGLOBIN 12.2 GM/dL (11.7-16.9); LYMPH % 5.8 % (8-40); MCH 27.5 pg (25.7-33.7); MEAN PLT VOLUME 8.6 fl (7.5-11.1); MONO % 6.6 % (3.8-10.2); NEUT % 85.4 % (42.8-82.8); PLATELET COUNT 219 K/MM3 (134-434); RBC 4.44 M/mm3 (4.00-5.60); RDW 15.5 % (11.9-15.9); WHITE BLOOD COUNT 14.2 K/mm3 (4.0-10.0)
[2019-04-01] MEDS ORDERED: PT OWN MED DRAWER 7, Y5N ONE (09:26)
[2019-04-01] MEDS: PANTOPRAZOLE SODIUM 40 MG VIAL IVPUSH SCH (09:48)
[2019-04-01] MEDS: metoPROLOL SUCCINATE 25 MG TAB.SR.24H (FP) PO SCH (09:48)
[2019-04-01] MEDS: ERTAPENEM SODIUM 1 GM in SODIUM CHLORIDE 50 ML IVPB SCH (09:56)
--- NOTE | 2019-04-01 10:02 | PN ---
Progress Note (short form) - Note Progress Note: RENAL Pt awake and alert comfortable, though still with pain in right lower quadrant no appetite and is npo urinating a lot since fluids were increased Last Vital Signs Temp Pulse Resp BP Pulse Ox 98.0 F 80 14 147/63 98 04/01/19 08:31 04/01/19 08:31 04/01/19 08:31 04/01/19 08:31 03/31/19 21:00 lungs clear cvs s1s2 rr abd soft, +bs, tender ext -edema neuro a+ox3 CBC, BMP 04/01/19 06:40 03/31/19 09:40 Current Medications Generic Name Dose Route Start Last Admin Trade Name Freq PRN Reason Stop Dose Admin Acetaminophen 1,000 mg 03/29/19 18:43 03/31/19 23:33 Ofirmev Injection - IVPB 1,000 mg Q6H PRN Administration PAIN OR FEVER Atorvastatin Calcium 40 mg 03/30/19 22:00 03/31/19 22:32 Lipitor - PO 40 mg HS LISBETH Administration Ertapenem 1 gm/ Sodium 50 mls @ 100 mls/hr 03/30/19 10:30 04/01/19 09:56 Chloride IVPB 100 mls/hr DAILY [facility] Administration Sodium Chloride 1,000 mls @ 150 mls/hr 03/31/19 13:45 04/01/19 01:51 Normal Saline - IV 150 mls/hr ASDIR LISBETH Administration Insulin Aspart 1 vial 03/29/19 19:00 04/01/19 06:13 Novolog Vial Sliding Scale - SQ Not Given Q6HPO [facility]IS[facility] Protocol Metoprolol Succinate 50 mg 04/01/19 10:00 04/01/19 09:48 Toprol Xl - PO 50 mg DAILY [facility] Administration Pantoprazole Sodium 40 mg 03/30/19 10:00 04/01/19 09:48 Protonix Iv IVPUSH 40 mg DAILY [facility] Administration Impression 1. CKD 2. DFU 3. HTN 4. DM 5. hx proteinuria 6. hyperlipidemia 7. appendicitis 8. ARA improving Plan continue fluids and antibiotics per ID may still need surgery if not further improvement repeat labs today suspect kidney function is accepable since he is making a lot of urine MV
--- NOTE | 2019-04-01 12:14 | PN ---
Progress Note, Physician Chief Complaint: Appendicitis History of Present Illness: NAD In bed self ambulatory continues to have RLQ pain on palpation - Current Medication List Current Medications: Active Medications Acetaminophen (Ofirmev Injection -) 1,000 mg IVPB Q6H PRN PRN Reason: PAIN OR FEVER Last Admin: 03/31/19 23:33 Dose: 1,000 mg Atorvastatin Calcium (Lipitor -) 40 mg PO HS [facility] Last Admin: 03/31/19 22:32 Dose: 40 mg Ertapenem 1 gm/ Sodium (Chloride) 50 mls @ 100 mls/hr IVPB DAILY [facility] Last Admin: 04/01/19 09:56 Dose: 100 mls/hr Sodium Chloride (Normal Saline -) 1,000 mls @ 150 mls/hr IV ASDIR [facility] Last Admin: 04/01/19 01:51 Dose: 150 mls/hr Insulin Aspart (Novolog Vial Sliding Scale -) 1 vial SQ Q6HPO [facility]; Protocol Last Admin: 04/01/19 11:17 Dose: Not Given Metoprolol Succinate (Toprol Xl -) 50 mg PO DAILY [facility] Last Admin: 04/01/19 09:48 Dose: 50 mg Pantoprazole Sodium (Protonix Iv) 40 mg IVPUSH DAILY [facility] Last Admin: 04/01/19 09:48 Dose: 40 mg - Objective Vital Signs: Vital Signs Temperature 98.0 F 04/01/19 08:31 Pulse Rate 80 04/01/19 08:31 Respiratory Rate 14 04/01/19 08:31 Blood Pressure 147/63 04/01/19 08:31 O2 Sat by Pulse Oximetry (%) 98 04/01/19 09:00 Constitutional: Yes: Well Nourished, No Distress, Calm Cardiovascular: Yes: Regular Rate and Rhythm Respiratory: Yes: Regular Gastrointestinal: Yes: Soft, Hypoactive Bowel Sounds, Tenderness (RLQ) Genitourinary: Yes: WNL Musculoskeletal: Yes: WNL Extremities: Yes: WNL Edema: No Peripheral Pulses WNL: Yes Wound/Incision: Yes: Dressing Dry and Intact (BL foot) Neurological: Yes: Alert, Oriented Psychiatric: Yes: Alert, Oriented Labs: CBC, BMP 04/01/19 06:40 03/31/19 09:40 INR, PTT INR 1.12 (0.83-1.09) H 03/29/19 17:05 Problem List - Problems (1) Diabetic foot ulcer Assessment/Plan: BL -Sees Dr Byrd at [facility] -Will consult podiatry Problems reviewed: Yes Code(s): E11.621 - TYPE 2 DIABETES MELLITUS WITH FOOT ULCER; L97.509 - NON- PRESSURE CHRONIC ULCER OTH PRT UNSP FOOT W UNSP SEVERITY Assessment/Plan (1) RLQ abdominal pain Assessment/Plan: -NPO except meds -leukocytosis -IVF continue at 150 cc/hr -IV abx -aspirin and plavix on hold -CT scan reviewed -surgical consult appreciated -IV PPI -Pain management Code(s): R10.31 - RIGHT LOWER QUADRANT PAIN (2) HTN (hypertension) Assessment/Plan: -continue metoprolol Code(s): I10 - ESSENTIAL (PRIMARY) HYPERTENSION Qualifiers: Hypertension type: essential hypertension Qualified Code(s): I10 - Essential (primary) hypertension (3) Hyperlipidemia Assessment/Plan: -continue lipitor Code(s): E78.5 - HYPERLIPIDEMIA, UNSPECIFIED Qualifiers: Hyperlipidemia type: unspecified Qualified Code(s): E78.5 - Hyperlipidemia , unspecified (4) PVD (peripheral vascular disease) Assessment/Plan: -Hold aspirin nad plavix Code(s): I73.9 - PERIPHERAL VASCULAR DISEASE, UNSPECIFIED
--- NOTE | 2019-04-01 13:32 | CON.CARD ---
Consult Consult Specialty:: Cardiology Referred by:: Kody Boone Reason for Consultation:: Preop - History of Present Illness Chief Complaint: Abdominal pain. History of Present Illness: 58 year old male with a pmhx of htn, hld, dm, CKD, prostate ca s/p seeding, and PVD s/p angioplasty and toe amputations presents with abdominal pain and diarrhea found to have appendicitis. Denies any cardiac history. No chest pain or sob. No pnd, orthopnea, or edema. No palpitations. Does all his own adl's with no limitations. 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: Peripheral Neuropathy Cardio/Vascular: Yes: HTN, Hyperlipdemia, Other (peripheral vascular disease) Gastrointestinal: Yes: GERD Renal/: Yes: Renal Inusuff, Cancer (Prostate Cancer s/p seed implantations) Infectious Disease: Yes: MRSA (from foot bone cultures in past) Musculoskeletal: Yes: Osteoarthritis Endocrine: Yes: Diabetes Mellitus (Insulin dependent) - Past Surgical History Past Surgical History: Yes: Amputation (lt tma, rt tma after multiple toe amputations), Colonoscopy, Stent (vascular stent left leg) Additional Surgical History: prostate radiation seed implants - Alcohol/Substance Use Hx Alcohol Use: No History of Substance Use: reports: Marijuana (in past) - Smoking History Smoking history: Former smoker Have you smoked in the past 12 months: No Aproximately how many cigarettes per day: 15 If you are a former smoker, when did you quit?: 2013 - Social History Usual Living Arrangement: Other (with family) ADL: Independent Occupation: Former [employer] History of Recent Travel: No Home Medications - Allergies Allergies/Adverse Reactions: Allergies Allergy/AdvReac Type Severity Reaction Status Date / Time piperacillin [From Zosyn] Allergy Verified 11/13/18 12:35 tazobactam [From Zosyn] Allergy Verified 11/13/18 12:35 - Home Medications Home Medications: Ambulatory Orders Atorvastatin Calcium 40 mg PO HS 08/10/16 Insulin Degludec [Tresiba Flextouch U-100] 55 units SQ HS 01/01/17 Aspirin Coated [Ecotrin -] 81 mg PO DAILY tablet.ec 07/20/17 Insulin Aspart (Niacinamide) [Fiasp 100 Unit/ml Vial] 24 unit SQ TID 07/04/18 Semaglutide [Ozempic] 0.25 mg SQ Q30D 10/03/18 Pantoprazole Sodium 40 mg PO PRN PRN 10/19/18 Clopidogrel Bisulfate [Plavix -] 75 mg PO DAILY tablet 11/17/18 Metoprolol Succinate [Toprol XL -] 25 mg PO HS tab.sr.24h 11/17/18 Vital Signs: Vital Signs Temperature 98.0 F 04/01/19 08:31 Pulse Rate 80 04/01/19 08:31 Respiratory Rate 14 04/01/19 08:31 Blood Pressure 147/63 04/01/19 08:31 O2 Sat by Pulse Oximetry (%) 98 04/01/19 09:00 Constitutional: Yes: No Distress Neck: Yes: Supple Respiratory: Yes: CTA Bilaterally Gastrointestinal: Yes: Tenderness (RLQ) Cardiovascular: Yes: Regular Rate and Rhythm JVD: No Carotid Bruit: No PMI: Non-Displaced Heart Sounds: Yes: S1, S2 Murmur: No: Systolic Murmur Edema: No - Other Data Labs, Other Data: CBC, BMP 04/01/19 06:40 03/31/19 09:40 INR, PTT INR 1.12 (0.83-1.09) H 03/29/19 17:05 Imaging - Results Chest X-ray: Report Reviewed EKG: Image Reviewed Problem List - Problems (1) Appendicitis Code(s): K37 - UNSPECIFIED APPENDICITIS Qualifiers: Appendicitis type: acute appendicitis Acute appendicitis type: unspecified acute appendicitis type Qualified Code(s): K35.80 - Unspecified acute appendicitis Assessment/Plan 58 year old male with a pmhx of htn, hld, dm, CKD, prostate ca s/p seeding, and PVD s/p angioplasty and toe amputations presents with abdominal pain and diarrhea found to have appendicitis. Denies any cardiac history. No chest pain or sob. No pnd, orthopnea, or edema. No palpitations. Does all his own adl's with no limitations. NST 2016 no ischemia EKG: sinus rhythm at 74bpm, lad, nl st segments Cr 2.5 on admission but improved now. -No cardiac contraindications to surgery for appendicitis. No chest pain or sob. EKG unremarkable. No murmurs on exam and no signs of chf. No further cardiac testing is indicated. Patient is already on beta mily for htn.
--- NOTE | 2019-04-01 15:12 | PN ---
Progress Note, Physician History of Present Illness: Pt with perforated appendicitis without drainable collection, being treated conservatively. ASA/plavix on hold (LLE stent). He is seen and examined in bed. He reports some RLQ pain, mainly when the area is palpated/pushed on. Using IV tylenol prn. Having BMs. Ambulates in room. MRSA screen negative. On Ertapenem per ID, day 3. WBC 14 today, Hb back to 12. No chemistry drawn. - Current Medication List Current Medications: Active Medications Acetaminophen (Ofirmev Injection -) 1,000 mg IVPB Q6H PRN PRN Reason: PAIN OR FEVER Last Admin: 03/31/19 23:33 Dose: 1,000 mg Atorvastatin Calcium (Lipitor -) 40 mg PO HS [facility] Last Admin: 03/31/19 22:32 Dose: 40 mg Ertapenem 1 gm/ Sodium (Chloride) 50 mls @ 100 mls/hr IVPB DAILY [facility] Last Admin: 04/01/19 09:56 Dose: 100 mls/hr Sodium Chloride (Normal Saline -) 1,000 mls @ 150 mls/hr IV ASDIR [facility] Last Admin: 04/01/19 14:31 Dose: 150 mls/hr Insulin Aspart (Novolog Vial Sliding Scale -) 1 vial SQ Q6HPO [facility]; Protocol Last Admin: 04/01/19 11:17 Dose: Not Given Metoprolol Succinate (Toprol Xl -) 50 mg PO DAILY [facility] Last Admin: 04/01/19 09:48 Dose: 50 mg Pantoprazole Sodium (Protonix Iv) 40 mg IVPUSH DAILY [facility] Last Admin: 04/01/19 09:48 Dose: 40 mg - Objective Vital Signs: Vital Signs Temperature 98.0 F 04/01/19 08:31 Pulse Rate 80 04/01/19 08:31 Respiratory Rate 14 04/01/19 08:31 Blood Pressure 147/63 04/01/19 08:31 O2 Sat by Pulse Oximetry (%) 98 04/01/19 09:00 Constitutional: Yes: Well Nourished, No Distress, Calm Eyes: Yes: Conjunctiva Clear, EOM Intact HENT: Yes: Atraumatic, Normocephalic Gastrointestinal: Yes: Soft, Tenderness (RLQ focally, similar to yesterday). No : Distention Genitourinary: No: CVA Tenderness - Left, CVA Tenderness - Right Extremities: Yes: Amputation (bilateral TMAs). No: Cool, Cyanosis Integumentary: No: Jaundice, Rash Neurological: Yes: Alert, Oriented Labs: CBC 04/01/19 06:40 Microbiology 03/30/19 11:45 MRSA Screen - Final Nares - Mrsa Screen - Left NO MRSA ISOLATED 03/30/19 11:45 MRSA Screen - Final Nares - Mrsa Screen - Right NO MRSA ISOLATED Problem List - Problems (1) Acute appendicitis with perforation and localized peritonitis, without abscess or gangrene Assessment/Plan: somewhat improved from admission but still with RLQ pain and tenderness continue NPO except essential meds - holding asa/plavix continue IV fluids continue antibiotics per ID trend labs, watch lytes, renal function nephrology on board pain meds prn - IV tylenol first line GI/DVT prophylaxis (home PPI) ambulation encouraged can probably d/c isolation precautions - MRSA screen negative given ASA/Plavix use, duration of symptoms, and perforated nature of appendicitis, would treat conservatively with IV antibiotics and bowel rest ( until pain/tenderness resolve), and plan for interval appendectomy in future once recovered surgery at this time would carry high risks of bleeding, potential for injury to adjacent bowel and tissues, and possible breakdown of staple lines cardiology consult noted BP still high at times will re-CT in am with PO contrast (only) to evaluate for drainable fluid collection, improvement in inflammation discussed with MICROBIOLOGY QUALITY CONTROL TECHNICIAN Kenisha Code(s): K35.32 - ACUTE APPENDICITIS WITH PERF AND LOC PERITONITIS, W/O ABSCS (2) RLQ abdominal pain Assessment/Plan: improved, loop tender Code(s): R10.31 - RIGHT LOWER QUADRANT PAIN (3) Dehydration Assessment/Plan: at baseline Cr Code(s): E86.0 - DEHYDRATION (4) CKD stage 3 due to type 2 diabetes mellitus Code(s): E11.22 - TYPE 2 DIABETES MELLITUS W DIABETIC CHRONIC KIDNEY DISEASE; N18.3 - CHRONIC KIDNEY DISEASE, STAGE 3 (MODERATE) (5) HTN (hypertension) Assessment/Plan: continue home beta mily BP still high at times defer to med/cardio Code(s): I10 - ESSENTIAL (PRIMARY) HYPERTENSION Qualifiers: Hypertension type: essential hypertension Qualified Code(s): I10 - Essential (primary) hypertension (6) Hyperlipidemia Code(s): E78.5 - HYPERLIPIDEMIA, UNSPECIFIED Qualifiers: Hyperlipidemia type: unspecified Qualified Code(s): E78.5 - Hyperlipidemia , unspecified (7) Diabetes mellitus with diabetic peripheral angiopathy without gangrene, with long-term current 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 Code(s): E11.51 - TYPE 2 DIABETES W DIABETIC PERIPHERAL ANGIOPATH W/O GANGRENE; Z79.4 - EQUIPMENT SERVICES ASSOCIATE (CURRENT) USE OF INSULIN Qualifiers: Diabetes mellitus type: type 2 Qualified Code(s): E11.51 - Type 2 diabetes mellitus with diabetic peripheral angiopathy without gangrene; Z79.4 - [facility] (current) 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
[2019-04-01] MEDS: ATORVASTATIN CA 40 MG TABLET (FP) PO SCH (21:18)
[2019-04-02] MEDS: SODIUM CHLORIDE 1,000 ML IV SCH (03:38)
[2019-04-02] MEDS: INSULIN SLIDING SCALE (NOVOLOG) 1 VIAL SQ SCH ×4 (06:38→17:30)
--- NOTE | 2019-04-02 07:49 | CONSULT ---
Consult - text type - Consultation Consultation Note: 58yo diabetic M with HTN, HLD, GERD, PVD s/p LLE angioplasty and stenting, CKD, prostate CA , s/p bilateral TMAs. Presented to the ER with RLQ pain and now admitted. Is well known to my partner Dr. Byrd who has performed b/l TMA's on the patient in the past. Has wound dressings in place. Has history of MRSA so on contact. Denies any other pedal complaints. States ran out of dressing at home to change. O: Feet warm to touch b/l, pulses lightly palpable at dp and pt, on left 2 small areas of calloused but healed wounds noted, on the right wound dressing in place but underlying wound is completely healed, no erythema, no edema, no pain on palpation, no signs of any infection noted at this time to the feet, no open wounds noted A: 58yo diabetic M with HTN, HLD, GERD, PVD s/p LLE angioplasty and stenting, CKD, prostate CA, s/p bilateral TMAs P: Evaluated and reviewed wound very stable and healed well Will keep covered and protected with Allyvyn which can be changed every other day. No wounds to take culture from at this time Will be followed while admitted, no acute podiatric needs at this time though.
[2019-04-02 08:42] LABS: BASO % 0.6 % (0-2.0); HEMATOCRIT 36.7 % (35.4-49); HEMOGLOBIN 12.5 GM/dL (11.7-16.9); LYMPH % 6.1 % (8-40); MCH 27.7 pg (25.7-33.7); MCHC 34.1 g/dl (32.0-35.9); MEAN CELL VOLUME 81.4 fl (80-96); MEAN PLT VOLUME 8.5 fl (7.5-11.1); MONO % 7.6 % (3.8-10.2); NEUT % 84.7 % (42.8-82.8); PLATELET COUNT 250 K/MM3 (134-434); RBC 4.51 M/mm3 (4.00-5.60); RDW 15.6 % (11.9-15.9); WHITE BLOOD COUNT 14.7 K/mm3 (4.0-10.0)
[2019-04-02 09:20] LABS: ALBUMIN 2.6 g/dl (3.4-5.0); BILIRUBIN,TOTAL 0.6 mg/dL (0.2-1); BLOOD UREA NITROGEN 10.4 mg/dL (7-18); CREATININE 0.9 mg/dL (0.55-1.3); MAGNESIUM 1.6 mg/dL (1.8-2.4); PHOSPHOROUS 2.5 mg/dL (2.5-4.9); POTASSIUM 3.9 mmol/L (3.5-5.1); TOT PROT 6.4 g/dl (6.4-8.2)
[2019-04-02] MEDS: ERTAPENEM SODIUM 1 GM in SODIUM CHLORIDE 50 ML IVPB SCH (09:41)
[2019-04-02] MEDS: PANTOPRAZOLE SODIUM 40 MG VIAL IVPUSH SCH (09:42)
[2019-04-02] MEDS: metoPROLOL SUCCINATE 25 MG TAB.SR.24H (FP) PO SCH (09:42)
--- NOTE | 2019-04-02 13:16 | PN ---
Progress Note (short form) - Note Progress Note: still some RLQ discomfort on ertapenem day #3 Vital Signs Period Temp Pulse Resp BP Sys/[place] Pulse Ox Last 24 Hr 98 F-99.0 F 80-91 14-20 152-165/79-93 100-100 cor-rrr llungs clear abd soft,nt RLQ pain on exam ext no edema CBC, BMP 04/02/19 07:20 04/02/19 07:20 Microbiology 03/30/19 11:45 Nares - Mrsa Screen - Left MRSA Screen - Final NO MRSA ISOLATED 03/30/19 11:45 Nares - Mrsa Screen - Right MRSA Screen - Final NO MRSA ISOLATED 03/29/19 14:00 Urine - Urine Clean Catch Urine Culture - Final NO GROWTH OBTAINED a/p appendicitis- conintue ertpaenem check crp to trend asa/plavix on hold repeat ct scan today- ?drainage history of DM PVD has a stent in the right leg bilateral toe amputations history of osteomyelitis history of MRSA in the past zosyn allergy (near syncope)-tolerated cephalosporins and carbapenems Problem List - Problems (1) Appendicitis Code(s): K37 - UNSPECIFIED APPENDICITIS Qualifiers: Appendicitis type: acute appendicitis Acute appendicitis type: unspecified acute appendicitis type Qualified Code(s): K35.80 - Unspecified acute appendicitis (2) Acute on chronic renal failure Code(s): N17.9 - ACUTE KIDNEY FAILURE, UNSPECIFIED; N18.9 - CHRONIC KIDNEY DISEASE, UNSPECIFIED Qualifiers: Acute renal failure type: unspecified Chronic kidney disease stage: unspecified stage Qualified Code(s): N17.9 - Acute kidney failure, unspecified ; N18.9 - Chronic kidney disease, unspecified; N18.9 - Chronic kidney disease, unspecified (3) Diabetes mellitus Code(s): E11.9 - TYPE 2 DIABETES MELLITUS WITHOUT COMPLICATIONS Qualifiers: Diabetes mellitus type: type 1 Diabetes mellitus complication status: with unspecified complications (4) PVD (peripheral vascular disease) Code(s): I73.9 - PERIPHERAL VASCULAR DISEASE, UNSPECIFIED
--- NOTE | 2019-04-02 15:26 | PN ---
Progress Note, Physician History of Present Illness: Pt seen and examined at bedside. He is awake and alert. He had a ANTONIA drain placed today. - Current Medication List Current Medications: Active Medications Acetaminophen (Ofirmev Injection -) 1,000 mg IVPB Q6H PRN PRN Reason: PAIN OR FEVER Last Admin: 03/31/19 23:33 Dose: 1,000 mg Atorvastatin Calcium (Lipitor -) 40 mg PO HS [facility] Last Admin: 04/01/19 21:18 Dose: 40 mg Ertapenem 1 gm/ Sodium (Chloride) 50 mls @ 100 mls/hr IVPB DAILY [facility] Last Admin: 04/02/19 09:41 Dose: 100 mls/hr Sodium Chloride (Normal Saline -) 1,000 mls @ 150 mls/hr IV ASDIR [facility] Last Admin: 04/02/19 03:38 Dose: 150 mls/hr Insulin Aspart (Novolog Vial Sliding Scale -) 1 vial SQ Q6HPO [facility]; Protocol Last Admin: 04/02/19 11:32 Dose: Not Given Metoprolol Succinate (Toprol Xl -) 50 mg PO DAILY [facility] Last Admin: 04/02/19 09:42 Dose: 50 mg Pantoprazole Sodium (Protonix Iv) 40 mg IVPUSH DAILY [facility] Last Admin: 04/02/19 09:42 Dose: 40 mg - Objective Vital Signs: Vital Signs Temperature 98 F 04/02/19 09:00 Pulse Rate 94 H 04/02/19 14:47 Respiratory Rate 24 H 04/02/19 14:47 Blood Pressure 204/94 H 04/02/19 14:47 O2 Sat by Pulse Oximetry (%) 97 04/02/19 14:47 Constitutional: Yes: Calm Eyes: Yes: Conjunctiva Clear HENT: Yes: Atraumatic Neck: Yes: Supple Cardiovascular: Yes: S1, S2 Respiratory: Yes: CTA Bilaterally Gastrointestinal: Yes: Normal Bowel Sounds, Soft, Other (ANTONIA drain) Genitourinary: Yes: WNL Musculoskeletal: Yes: WNL Integumentary: Yes: WNL Neurological: Yes: Oriented Psychiatric: Yes: Oriented Labs: CBC, BMP 04/02/19 07:20 04/02/19 07:20 INR, PTT INR 1.12 (0.83-1.09) H 03/29/19 17:05 Problem List - Problems (1) Acute appendicitis with perforation and localized peritonitis, without abscess or gangrene Code(s): K35.32 - ACUTE APPENDICITIS WITH PERF AND LOC PERITONITIS, W/O ABSCS (2) Appendicitis Code(s): K37 - UNSPECIFIED APPENDICITIS Qualifiers: Appendicitis type: acute appendicitis Acute appendicitis type: unspecified acute appendicitis type Qualified Code(s): K35.80 - Unspecified acute appendicitis (3) Chronic kidney disease (CKD) Code(s): N18.9 - CHRONIC KIDNEY DISEASE, UNSPECIFIED Qualifiers: Chronic kidney disease stage: stage 3 (moderate) Qualified Code(s): N18.3 - Chronic kidney disease, stage 3 (moderate) Assessment/Plan Current Medications Generic Name Dose Route Start Last Admin Trade Name Freq PRN Reason Stop Dose Admin Acetaminophen 1,000 mg 03/29/19 18:43 03/31/19 23:33 Ofirmev Injection - IVPB 1,000 mg Q6H PRN Administration PAIN OR FEVER Atorvastatin Calcium 40 mg 03/30/19 22:00 04/01/19 21:18 Lipitor - PO 40 mg HS [facility] Administration Ertapenem 1 gm/ Sodium 50 mls @ 100 mls/hr 03/30/19 10:30 04/02/19 09:41 Chloride IVPB 100 mls/hr DAILY [facility] Administration Sodium Chloride 1,000 mls @ 150 mls/hr 03/31/19 13:45 04/02/19 03:38 Normal Saline - IV 150 mls/hr ASDIR [facility] Administration Insulin Aspart 1 vial 03/29/19 19:00 04/02/19 11:32 Novolog Vial Sliding Scale - SQ Not Given Q6HPO [facility] Protocol Metoprolol Succinate 50 mg 04/01/19 10:00 04/02/19 09:42 Toprol Xl - PO 50 mg DAILY [facility] Administration Pantoprazole Sodium 40 mg 03/30/19 10:00 04/02/19 09:42 Protonix Iv IVPUSH 40 mg DAILY [facility] Administration Impression 1. CKD 2. DFU 3. HTN 4. DM 5. hx proteinuria 6. hyperlipidemia 7. appendicitis 8. ARA Plan - renal function is improved - repeat bp - decrease rate of fluids - start clinimix if feeds not started - surgery follow up
[2019-04-02] MEDS ORDERED: DEXTROSE 5%-0.45% SALINE 1,000 ML IV SCH ×3 (15:30→17:10)
[2019-04-02] MEDS ORDERED: SODIUM CHLORIDE 1,000 ML IV SCH (16:30)
[2019-04-02] MEDS ORDERED: ACETAMINOPHEN 1000 MG/100 ML VIAL (NON FORMULARY) IVPB ONE (16:32)
--- NOTE | 2019-04-02 17:05 | RAPID ---
<Summer Delarosa - Last Filed: 04/02/19 17:18> Physical Examination Vital Signs: Rapid response was called at 16:35.Pt was diaphoretic, in mod distress and shivering. Pt had come up an hour prior after having an appendix drain placed by IR. Pt endorsed vomiting once (NBNB) but denied any chest pain, SOB or abdominal pain other then surgical site. noticed fluids were not running so we restarted. pt already on Ertapenem. VS: 98.8 Sat 98% 16 HR 110-120s BP 163/75 PE: mod distress. AAOX3 Head and neck: Dry mucous membranes Lungs: CTAB Heart: tachycardic, normal s1 nd s2 Abdomen: surgical site dressing CDI, +BS, tenderness at surgical site, no rebound, no guarding, No organomegaly, ANTONIA draining purulent contents Extremities: no edema, B/l toe amputations, faint pulse b/l (h/o vascular disease) Assessment and plan: 58 y/o M s/p IR intervention with drainage placement now with shivering, diaphoresis and tachycardia Ddx: Bacterimia -blood cultures, Lactic acid -tylenol orfimev -resume fluids D5 1/2NS @150 ( pt has hypernatremia and NPO) -EKG for tachycardia in 120 bpm (no ST changes; QTC 454, tachy) -c/w Ertapenem Dehydration -D5-1/2NS -will maintain NPO Bowel perforation ( low suspicion) -KUB Labs: CBC, [facility] 04/02/19 07:20 04/02/19 07:20 <Yeyo Salas - Last Filed: 04/02/19 19:08> Physical Examination Vital Signs: Labs: CBC, BMP 04/02/19 17:15 04/02/19 07:20 Critical Care Total Critical Care Time (in minutes): 45 Critical Care Statement: The care of this patient involved high complexity decision making to prevent further life threatening deterioration of the patient 's condition and/or to evaluate & treat vital organ system(s) failure or risk of failure.
[2019-04-02 17:51] LABS: BASO % 0.5 % (0-2.0); EOS % 0.4 % (0-4.5); HEMATOCRIT 39.7 % (35.4-49); HEMOGLOBIN 13.1 GM/dL (11.7-16.9); LYMPH % 3.2 % (8-40); MCH 27.1 pg (25.7-33.7); MCHC 32.9 g/dl (32.0-35.9); MEAN CELL VOLUME 82.4 fl (80-96); MEAN PLT VOLUME 8.6 fl (7.5-11.1); MONO % 2.7 % (3.8-10.2); NEUT % 93.2 % (42.8-82.8); PLATELET COUNT 256 K/MM3 (134-434); RBC 4.82 M/mm3 (4.00-5.60); RDW 15.6 % (11.9-15.9); WHITE BLOOD COUNT 10.3 K/mm3 (4.0-10.0)
[2019-04-02 18:14] LABS: LDH 160 U/L (87-246)
[2019-04-02] MEDS ORDERED: MAGNESIUM SULF 50% (8.12 MEQ/2 ML-1 GM VIAL) IVPB ONE (18:19)
--- NOTE | 2019-04-02 18:37 | PN ---
Progress Note, Physician History of Present Illness: Pt with perforated appendicitis, being treated conservatively. ASA/plavix on hold (LLE stent). He is seen and examined in bed earlier this morning, just back from CT. He reports RLQ pain, slightly less, but still present, mainly when the area is palpated/pushed on. Using IV tylenol prn. Having loose BMs already since oral contrast this am. On Ertapenem per ID, day 4. WBC still 14 today. He takes ice chips and sips of water. CT done with PO but no IV contrast shows increased fluid around appendicolith in RLQ, likely abscess cavity, difficult to tell if intramural or drainable. Spoke with Dr. Charles, who recommended repeat with IV contrast before possible percutaneous drain placement. This was done, and he then had IR drainage of RLQ abscess, cultures sent, and now has ANTONIA drain with snow/lt brown foul-smelling purulent drainage. 50ml just emptied, some more already in bulb. About an hour after coming back from IR, rapid response was called for tachycardia, diaphoresis, N/V. Glucose was 136, blood cultures were drawn and labs resent. Lactate is normal, wbc down to 10.3. Fluids have been restarted. He is seen again now, in bed, feeling better. Still warm, temp 100.3, tachy at 110, BP 117/63. No more nausea. Pain only when his RLQ area is palpated. IR dressing intact. Films reviewed. - Current Medication List Current Medications: Active Medications Acetaminophen (Ofirmev Injection -) 1,000 mg IVPB Q6H PRN PRN Reason: PAIN OR FEVER Last Admin: 03/31/19 23:33 Dose: 1,000 mg Atorvastatin Calcium (Lipitor -) 40 mg PO HS [facility] Last Admin: 04/01/19 21:18 Dose: 40 mg Ertapenem 1 gm/ Sodium (Chloride) 50 mls @ 100 mls/hr IVPB DAILY [facility] Last Admin: 04/02/19 09:41 Dose: 100 mls/hr Dextrose/Sodium Chloride (D5-1/2ns -) 1,000 mls @ 83 mls/hr IV ASDIR [facility] Last Admin: 04/02/19 15:54 Dose: 83 mls/hr Dextrose/Sodium Chloride (D5-1/2ns -) 1,000 mls @ 100 mls/hr IV ASDIR [facility] Stop: 04/03/19 02:44 Last Admin: 04/02/19 17:21 Dose: 100 mls/hr Insulin Aspart (Novolog Vial Sliding Scale -) 1 vial SQ Q6HPO [facility]; Protocol Last Admin: 04/02/19 17:30 Dose: Not Given Metoprolol Succinate (Toprol Xl -) 50 mg PO DAILY [facility] Last Admin: 04/02/19 09:42 Dose: 50 mg Pantoprazole Sodium (Protonix Iv) 40 mg IVPUSH DAILY [facility] Last Admin: 04/02/19 09:42 Dose: 40 mg - Objective Vital Signs: Vital Signs Temperature 100.3 F H 04/02/19 18:09 Pulse Rate 108 H 04/02/19 18:22 Respiratory Rate 18 04/02/19 15:30 Blood Pressure 116/63 04/02/19 18:09 O2 Sat by Pulse Oximetry (%) 98 04/02/19 15:30 Vital Signs Period Temp Pulse Resp BP Sys/[place] Pulse Ox Last 24 Hr 98 F-100.3 F 85-108 18-24 116-204/63-94 97-100 Constitutional: Yes: Well Nourished, No Distress, Calm Eyes: Yes: Conjunctiva Clear, EOM Intact HENT: Yes: Atraumatic, Normocephalic Gastrointestinal: Yes: Soft, Tenderness (RLQ about the same as before, focal, but less referred from adjacent sites), Other (IR drain RLQ) Extremities: No: Cool, Cyanosis Integumentary: No: Jaundice, Rash Wound/Incision: Yes: Dressing Dry and Intact (RLQ drain), Draining (foul, snow/ lt brown purulent fluid in ANTONIA bulb). No: Dressing Removed Neurological: Yes: Alert, Oriented Labs: CBC, BMP 04/02/19 17:15 04/02/19 07:20 CMP Sodium 138 mmol/L (136-145) 04/02/19 07:20 Potassium 3.9 mmol/L (3.5-5.1) 04/02/19 07:20 Chloride 107 mmol/L (98-107) 04/02/19 07:20 Carbon Dioxide 19 mmol/L (21-32) L 04/02/19 07:20 Anion Gap 13 MMOL/L (8-16) 04/02/19 07:20 BUN 10.4 mg/dL (7-18) 04/02/19 07:20 Creatinine 0.9 mg/dL (0.55-1.3) 04/02/19 07:20 Est GFR (CKD-EPI)AfAm 107.22 04/02/19 07:20 Est GFR (CKD-EPI)NonAf 92.51 04/02/19 07:20 POC Glucometer 136 UNITS (80-120) 04/02/19 16:17 Random Glucose 146 mg/dL (74-106) H 04/02/19 07:20 Lactic Acid 1.9 mmol/L (0.4-2.0) 04/02/19 17:15 Calcium 8.0 mg/dL (8.5-10.1) L 04/02/19 07:20 Phosphorus 2.5 mg/dL (2.5-4.9) 04/02/19 07:20 Magnesium 1.6 mg/dL (1.8-2.4) L 04/02/19 07:20 Total Bilirubin 0.6 mg/dL (0.2-1) 04/02/19 07:20 AST 16 U/L (15-37) 04/02/19 07:20 ALT 19 U/L (13-61) 04/02/19 07:20 Alkaline Phosphatase 96 U/L (45-117) 04/02/19 07:20 LD Total 160 U/L (87-246) 04/02/19 17:15 C-Reactive Protein 17.2 MG/DL (0.00-0.3) H 04/01/19 06:40 Total Protein 6.4 g/dl (6.4-8.2) 04/02/19 07:20 Albumin 2.6 g/dl (3.4-5.0) L 04/02/19 07:20 wbc this am 14.5 - ....Imaging Cat Scan: Image Reviewed (images reviewed and discussed with Dr. Charles - increased fluid collection in RLQ around appendicolith, also small collection inferiorly/near pelvis; now s/p drain placement) Problem List - Problems (1) Acute appendicitis with perforation, localized peritonitis, and abscess Assessment/Plan: somewhat improved from admission but still with RLQ pain and tenderness ice chips and sips of water holding asa/plavix continue IV fluids - decrease as per renal need to hydrate after CT with IV contrast continue antibiotics per ID trend labs, watch lytes, renal function nephrology on board pain meds prn - IV tylenol first line GI/DVT prophylaxis (home PPI) ambulation encouraged isolation precautions stopped - MRSA screen negative CT done - now s/p IR drain placement in RLQ with purulent return f/u cultures monitor drain output, saline flush 5m q6H per IR pt likely to end up going home with drain for at least several days - will need SW/LANI to see about VNS services for drain care, emptying/teaching, monitoring episode post-procedure likely attributable to transient bacteremia f/u blood cultures pain is actually slightly less now no more nausea bowel injury or perforation unlikely - post-drain CT images reviewed as well will start clear liquids in am - if tolerating, may consider advancing to full liquid diabetic for lunch/dinner tomorrow NO soda, DECAF tea/coffee following with you discussed with Renae De Leon NP Problems reviewed: Yes Code(s): K35.33 - ACUTE APPENDICITIS WITH PERF AND LOC PERITONITIS, WITH ABSCS Qualifiers: Appendicitis gangrene presence: unspecified whether gangrene present Qualified Code(s): K35.33 - Acute appendicitis with perforation and localized peritonitis, with abscess (2) RLQ abdominal pain Assessment/Plan: improved, steam drier tender Code(s): R10.31 - RIGHT LOWER QUADRANT PAIN (3) Dehydration Assessment/Plan: resolved Code(s): E86.0 - DEHYDRATION (4) CKD stage 3 due to type 2 diabetes mellitus Code(s): E11.22 - TYPE 2 DIABETES MELLITUS W DIABETIC CHRONIC KIDNEY DISEASE; N18.3 - CHRONIC KIDNEY DISEASE, STAGE 3 (MODERATE) (5) HTN (hypertension) Code(s): I10 - ESSENTIAL (PRIMARY) HYPERTENSION Qualifiers: Hypertension type: essential hypertension Qualified Code(s): I10 - Essential (primary) hypertension (6) Hyperlipidemia Code(s): E78.5 - HYPERLIPIDEMIA, UNSPECIFIED Qualifiers: Hyperlipidemia type: unspecified Qualified Code(s): E78.5 - Hyperlipidemia , unspecified (7) Diabetes mellitus with diabetic peripheral angiopathy without gangrene, with long-term current 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 Code(s): E11.51 - TYPE 2 DIABETES W DIABETIC PERIPHERAL ANGIOPATH W/O GANGRENE; Z79.4 - USP (CURRENT) USE OF INSULIN Qualifiers: Diabetes mellitus type: type 2 Qualified Code(s): E11.51 - Type 2 diabetes mellitus with diabetic peripheral angiopathy without gangrene; 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
[2019-04-02 18:41] LABS: ANISOCYTOSIS 1+; MACROCYTOSIS 0; PLATELET ESTIMATE NORMAL
--- NOTE | 2019-04-02 19:06 | PN ---
Progress Note, Physician Chief Complaint: Appendicits History of Present Illness: Previous notes and events reviewed awake and alert NAD patient to have Abdominal/Pelvic CT scan done with possible drain placement complain of RLQ pain Leukocytosis with WBC 14.7 - Current Medication List Current Medications: Active Medications Acetaminophen (Ofirmev Injection -) 1,000 mg IVPB Q6H PRN PRN Reason: PAIN OR FEVER Last Admin: 03/31/19 23:33 Dose: 1,000 mg Atorvastatin Calcium (Lipitor -) 40 mg PO HS [facility] Last Admin: 04/01/19 21:18 Dose: 40 mg Ertapenem 1 gm/ Sodium (Chloride) 50 mls @ 100 mls/hr IVPB DAILY [facility] Last Admin: 04/02/19 09:41 Dose: 100 mls/hr Dextrose/Sodium Chloride (D5-1/2ns -) 1,000 mls @ 83 mls/hr IV ASDIR [facility] Last Admin: 04/02/19 15:54 Dose: 83 mls/hr Dextrose/Sodium Chloride (D5-1/2ns -) 1,000 mls @ 100 mls/hr IV ASDIR [facility] Stop: 04/03/19 02:44 Last Admin: 04/02/19 17:21 Dose: 100 mls/hr Insulin Aspart (Novolog Vial Sliding Scale -) 1 vial SQ Q6HPO [facility]; Protocol Last Admin: 04/02/19 17:30 Dose: Not Given Metoprolol Succinate (Toprol Xl -) 50 mg PO DAILY [facility] Last Admin: 04/02/19 09:42 Dose: 50 mg Pantoprazole Sodium (Protonix Iv) 40 mg IVPUSH DAILY [facility] Last Admin: 04/02/19 09:42 Dose: 40 mg - Objective Vital Signs: Vital Signs Temperature 100.3 F H 04/02/19 18:09 Pulse Rate 108 H 04/02/19 18:22 Respiratory Rate 18 04/02/19 15:30 Blood Pressure 116/63 04/02/19 18:09 O2 Sat by Pulse Oximetry (%) 98 04/02/19 15:30 Constitutional: Yes: No Distress, Calm Eyes: Yes: Conjunctiva Clear HENT: Yes: Atraumatic Cardiovascular: Yes: Regular Rate and Rhythm Respiratory: Yes: Regular, CTA Bilaterally Gastrointestinal: Yes: Normal Bowel Sounds, Soft, Tenderness (rlq) Musculoskeletal: Yes: WNL Extremities: Yes: WNL Edema: No Neurological: Yes: Alert, Oriented Psychiatric: Yes: Alert, Oriented Labs: CBC, BMP 04/02/19 17:15 04/02/19 07:20 INR, PTT INR 1.12 (0.83-1.09) H 03/29/19 17:05 Microbiology 03/30/19 11:45 Nares - Mrsa Screen - Left MRSA Screen - Final NO MRSA ISOLATED 03/30/19 11:45 Nares - Mrsa Screen - Right MRSA Screen - Final NO MRSA ISOLATED 03/29/19 14:00 Urine - Urine Clean Catch Urine Culture - Final NO GROWTH OBTAINED Problem List - Problems (1) Acute appendicitis with perforation and localized peritonitis, without abscess or gangrene Assessment/Plan: -Surgery on board -pending Abd/Pelvic CT scan -IV hydration -pain control -leukocytosis -Ertapenem Code(s): K35.32 - ACUTE APPENDICITIS WITH PERF AND LOC PERITONITIS, W/O ABSCS (2) RLQ abdominal pain Assessment/Plan: -Surgery on board -pending Abd/Pelvic CT scan -IV hydration -pain control -leukocytosis -Ertapenem Code(s): R10.31 - RIGHT LOWER QUADRANT PAIN (3) HTN (hypertension) Assessment/Plan: -Metoprolol Code(s): I10 - ESSENTIAL (PRIMARY) HYPERTENSION Qualifiers: Hypertension type: essential hypertension Qualified Code(s): I10 - Essential (primary) hypertension (4) Hyperlipidemia Assessment/Plan: -Atorvastatin Code(s): E78.5 - HYPERLIPIDEMIA, UNSPECIFIED Qualifiers: Hyperlipidemia type: unspecified Qualified Code(s): E78.5 - Hyperlipidemia , unspecified (5) Acute kidney injury Assessment/Plan: -BUN/Cr 10.4/0.9 -monitor renal function -Renal on board Code(s): N17.9 - ACUTE KIDNEY FAILURE, UNSPECIFIED (6) Diabetes mellitus Assessment/Plan: -BGM ACHS -ISS Code(s): E11.9 - TYPE 2 DIABETES MELLITUS WITHOUT COMPLICATIONS Qualifiers: Diabetes mellitus type: type 1 Diabetes mellitus complication status: with unspecified complications (7) PVD (peripheral vascular disease) Assessment/Plan: -Vascular on board -aspirin and plavix on hold due to possible IR drain placement Code(s): I73.9 - PERIPHERAL VASCULAR DISEASE, UNSPECIFIED Assessment/Plan see problem list dvt ppx
[2019-04-02] MEDS: ATORVASTATIN CA 40 MG TABLET (FP) PO SCH (22:07)
[2019-04-03] MEDS: INSULIN SLIDING SCALE (NOVOLOG) 1 VIAL SQ SCH ×4 (00:23→17:21)
[2019-04-03 08:24] LABS: HEMOGLOBIN 12.7 GM/dL (11.7-16.9); MCH 27.3 pg (25.7-33.7); MCHC 33.5 g/dl (32.0-35.9); MEAN CELL VOLUME 81.6 fl (80-96); MEAN PLT VOLUME 8.5 fl (7.5-11.1); PLATELET COUNT 235 K/MM3 (134-434); RBC 4.66 M/mm3 (4.00-5.60); RDW 15.6 % (11.9-15.9); WHITE BLOOD COUNT 9.2 K/mm3 (4.0-10.0)
[2019-04-03 08:59] LABS: ALBUMIN 2.4 g/dl (3.4-5.0); BILIRUBIN,TOTAL 0.5 mg/dL (0.2-1); CALCIUM 8.2 mg/dL (8.5-10.1); POTASSIUM 3.8 mmol/L (3.5-5.1); TOT PROT 6.3 g/dl (6.4-8.2)
[2019-04-03] MEDS: ERTAPENEM SODIUM 1 GM in SODIUM CHLORIDE 50 ML IVPB SCH (10:15)
[2019-04-03] MEDS: metoPROLOL SUCCINATE 25 MG TAB.SR.24H (FP) PO SCH (10:15)
[2019-04-03] MEDS: PANTOPRAZOLE SODIUM 40 MG VIAL IVPUSH SCH (10:16)
[2019-04-03] MEDS ORDERED: INSULIN (NOVOLOG) ASPART 100 UNITS/ML 10ML VIAL ONE (11:55)
--- NOTE | 2019-04-03 12:22 | PN ---
Progress Note (short form) - Note Progress Note: Patient was found sitting on floor by nurse. States he was walking to bathroom and his legs felt weak underneath him. Denies LOC and denies hitting his head. Fall Protocol orders initiated. Hip/Pelvic Xray ordered. Problem List - Problems (1) Acute appendicitis with perforation and localized peritonitis, without abscess or gangrene Code(s): K35.32 - ACUTE APPENDICITIS WITH PERF AND LOC PERITONITIS, W/O ABSCS (2) RLQ abdominal pain Code(s): R10.31 - RIGHT LOWER QUADRANT PAIN (3) HTN (hypertension) Code(s): I10 - ESSENTIAL (PRIMARY) HYPERTENSION Qualifiers: Hypertension type: essential hypertension Qualified Code(s): I10 - Essential (primary) hypertension (4) Hyperlipidemia Code(s): E78.5 - HYPERLIPIDEMIA, UNSPECIFIED Qualifiers: Hyperlipidemia type: unspecified Qualified Code(s): E78.5 - Hyperlipidemia , unspecified (5) Acute kidney injury Code(s): N17.9 - ACUTE KIDNEY FAILURE, UNSPECIFIED (6) Diabetes mellitus Code(s): E11.9 - TYPE 2 DIABETES MELLITUS WITHOUT COMPLICATIONS Qualifiers: Diabetes mellitus type: type 1 Diabetes mellitus complication status: with unspecified complications (7) PVD (peripheral vascular disease) Code(s): I73.9 - PERIPHERAL VASCULAR DISEASE, UNSPECIFIED
[2019-04-03] MEDS ORDERED: PANTOPRAZOLE 40 MG TABLET (FP) PO PRN (12:57)
--- NOTE | 2019-04-03 13:22 | PN ---
Progress Note, Physician History of Present Illness: Pt with perforated appendicitis, being treated conservatively. ASA/plavix on hold (LLE stent). He is seen and examined in bed . C/O RLQ pain with coughing or when it is touched/pushed on, taking tylenol prn. On Ertapenem per ID, day 5. WBC down to normal today. He is tolerating clears. Requests to resume asa/ plavix so his LLE stent does not close up. Had IR drain placed in periappendiceal abscess, cultures sent; ANTONIA drain with purulent drainage. 50ml recently emptied, bulb currently empty. AM events noted - pt slipped down off bed ("my legs gave out on me") onto the floor. Bilateral hip XR negative. He refused head CT per nurse. - Current Medication List Current Medications: Active Medications Acetaminophen (Tylenol -) 650 mg PO Q4H PRN PRN Reason: Pain Level 4 - 10 FIRST LINE Atorvastatin Calcium (Lipitor -) 40 mg PO HS [facility] Last Admin: 04/02/19 22:07 Dose: 40 mg Ertapenem 1 gm/ Sodium (Chloride) 50 mls @ 100 mls/hr IVPB DAILY [facility] Last Admin: 04/03/19 10:15 Dose: 100 mls/hr Potassium Chloride 10 meq/ (Sodium Chloride) 1,005 mls @ 42 mls/hr IVPB Q24H [facility] Insulin Aspart (Novolog Vial Sliding Scale -) 1 vial SQ Q6HPO [facility]; Protocol Last Admin: 04/03/19 12:15 Dose: 4 units Lactobacillus Acidophilus (Bacid -) 1 tab PO DAILY [facility] Metoprolol Succinate (Toprol Xl -) 50 mg PO DAILY [facility] Last Admin: 04/03/19 10:15 Dose: 50 mg Pantoprazole Sodium (Protonix -) 40 mg PO DAILY [facility] - Objective Vital Signs: Vital Signs Temperature 99.1 F 04/03/19 10:30 Pulse Rate 84 04/03/19 10:30 Respiratory Rate 18 04/03/19 10:30 Blood Pressure 152/72 04/03/19 10:30 O2 Sat by Pulse Oximetry (%) 98 04/03/19 09:00 Constitutional: Yes: Well Nourished, No Distress, Calm Eyes: Yes: Conjunctiva Clear, EOM Intact HENT: Yes: Atraumatic, Normocephalic Gastrointestinal: Yes: Soft, Tenderness (RLQ - similar), Other (IR drain in place). No: Tenderness, Rebound Extremities: No: Cool, Cyanosis Wound/Incision: No: Dressing Dry and Intact (IR drain - tegaderm loose at posterior edge - resecured), Dressing Removed Neurological: Yes: Alert, Oriented Labs: CBC, BMP 04/03/19 07:10 04/03/19 07:10 BUN/Cr stable wbc down - ....Imaging X-ray: Report Reviewed Problem List - Problems (1) Acute appendicitis with perforation, localized peritonitis, and abscess Assessment/Plan: somewhat improved from admission but still with RLQ pain and tenderness may resume asa/plavix in am decreased IV fluids - defer to renal to stop or continue continue antibiotics per ID bacid added trend labs, watch lytes, renal function nephrology on board pain meds prn - tylenol first line, changed to po GI/DVT prophylaxis (home PPI) ambulation encouraged - in hallways f/u cultures - drain and blood from yesterday abscess cx growing Group C and D strep so far monitor drain output, saline flush 5m q6H per IR pt likely to end up going home with drain for at least several days - SW/CM to see about VNS services for drain care, emptying/teaching, monitoring advanced to full liquid diabetic diet NO soda, DECAF tea/coffee if tolerating, can advance to diabetic, low Na diet in am discussed with Renae De Leon NP Code(s): K35.33 - ACUTE APPENDICITIS WITH PERF AND LOC PERITONITIS, WITH ABSCS Qualifiers: Appendicitis gangrene presence: unspecified whether gangrene present Qualified Code(s): K35.33 - Acute appendicitis with perforation and localized peritonitis, with abscess (2) RLQ abdominal pain Code(s): R10.31 - RIGHT LOWER QUADRANT PAIN (3) CKD stage 3 due to type 2 diabetes mellitus Code(s): E11.22 - TYPE 2 DIABETES MELLITUS W DIABETIC CHRONIC KIDNEY DISEASE; N18.3 - CHRONIC KIDNEY DISEASE, STAGE 3 (MODERATE) (4) HTN (hypertension) Code(s): I10 - ESSENTIAL (PRIMARY) HYPERTENSION Qualifiers: Hypertension type: essential hypertension Qualified Code(s): I10 - Essential (primary) hypertension (5) Hyperlipidemia Code(s): E78.5 - HYPERLIPIDEMIA, UNSPECIFIED Qualifiers: Hyperlipidemia type: unspecified Qualified Code(s): E78.5 - Hyperlipidemia , unspecified (6) Diabetes mellitus with diabetic peripheral angiopathy without gangrene, with long-term current 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 Code(s): E11.51 - TYPE 2 DIABETES W DIABETIC PERIPHERAL ANGIOPATH W/O GANGRENE; Z79.4 - MINING HELPER (CURRENT) USE OF INSULIN Qualifiers: Diabetes mellitus type: type 2 Qualified Code(s): E11.51 - Type 2 diabetes mellitus with diabetic peripheral angiopathy without gangrene; Z79.4 - ferry terminal supervisor (current) 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
--- NOTE | 2019-04-03 13:40 | EKG ---
Test Reason : Blood Pressure : / mmHG Vent. Rate : 111 BPM Atrial Rate : 111 BPM P-R Int : 142 ms QRS Dur : 086 ms QT Int : 334 ms P-R-T Axes : 026 -37 042 degrees QTc Int : 454 ms SINUS TACHYCARDIA LEFT AXIS DEVIATION ABNORMAL ECG WHEN COMPARED WITH ECG OF 29-MAR-2019 18:03, VENT. RATE HAS INCREASED BY 37 BPM Confirmed by MD Jordan Daniel ([id number]) on 04/03/2019 1:40:03 PM Referred By: Confirmed By:Sebas Jordan MD
[2019-04-03] MEDS: LACTOBACILLUS ACIDOPHILUS 1 TABLET PO SCH (14:04)
[2019-04-03] MEDS: ACETAMINOPHEN 325 MG TABLET (FP) PO PRN (14:04)
[2019-04-03] MEDS: POTASSIUM CHLORIDE 10 MEQ in SODIUM CHLORIDE 0.45% 1,000 ML IVPB SCH (14:40)
--- NOTE | 2019-04-03 14:51 | PN ---
Progress Note, Physician History of Present Illness: Pt seen and examined at bedside. He is awake and alert. He is tolerating diet. - Current Medication List Current Medications: Active Medications Acetaminophen (Tylenol -) 650 mg PO Q4H PRN PRN Reason: Pain Level 4 - 10 FIRST LINE Last Admin: 04/03/19 14:04 Dose: 650 mg Atorvastatin Calcium (Lipitor -) 40 mg PO HS [facility] Last Admin: 04/02/19 22:07 Dose: 40 mg Ertapenem 1 gm/ Sodium (Chloride) 50 mls @ 100 mls/hr IVPB DAILY [facility] Last Admin: 04/03/19 10:15 Dose: 100 mls/hr Potassium Chloride 10 meq/ (Sodium Chloride) 1,005 mls @ 42 mls/hr IVPB Q24H [facility] Last Admin: 04/03/19 14:40 Dose: 42 mls/hr Insulin Aspart (Novolog Vial Sliding Scale -) 1 vial SQ Q6HPO [facility]; Protocol Last Admin: 04/03/19 12:15 Dose: 4 units Lactobacillus Acidophilus (Bacid -) 1 tab PO DAILY [facility] Last Admin: 04/03/19 14:04 Dose: 1 tab Metoprolol Succinate (Toprol Xl -) 50 mg PO DAILY [facility] Last Admin: 04/03/19 10:15 Dose: 50 mg Pantoprazole Sodium (Protonix -) 40 mg PO DAILY [facility] - Objective Vital Signs: Vital Signs Temperature 99 F 04/03/19 12:30 Pulse Rate 84 04/03/19 12:30 Respiratory Rate 18 04/03/19 12:30 Blood Pressure 131/78 04/03/19 12:30 O2 Sat by Pulse Oximetry (%) 98 04/03/19 09:00 Constitutional: Yes: Calm Eyes: Yes: Conjunctiva Clear HENT: Yes: Atraumatic Neck: Yes: Supple Cardiovascular: Yes: S1, S2 Respiratory: Yes: CTA Bilaterally Gastrointestinal: Yes: Normal Bowel Sounds, Soft, Other (ANTONIA drain in place) Genitourinary: Yes: WNL Extremities: Yes: Other (toe amputations) Edema: No Neurological: Yes: Oriented Psychiatric: Yes: Oriented Labs: CBC, BMP 04/03/19 07:10 04/03/19 07:10 INR, PTT INR 1.12 (0.83-1.09) H 03/29/19 17:05 Problem List - Problems (1) Acute appendicitis with perforation and localized peritonitis, without abscess or gangrene Code(s): K35.32 - ACUTE APPENDICITIS WITH PERF AND LOC PERITONITIS, W/O ABSCS (2) Appendicitis Code(s): K37 - UNSPECIFIED APPENDICITIS Qualifiers: Appendicitis type: acute appendicitis Acute appendicitis type: unspecified acute appendicitis type Qualified Code(s): K35.80 - Unspecified acute appendicitis (3) Chronic kidney disease (CKD) Code(s): N18.9 - CHRONIC KIDNEY DISEASE, UNSPECIFIED Qualifiers: Chronic kidney disease stage: stage 3 (moderate) Qualified Code(s): N18.3 - Chronic kidney disease, stage 3 (moderate) Assessment/Plan Current Medications Generic Name Dose Route Start Last Admin Trade Name Freq PRN Reason Stop Dose Admin Acetaminophen 650 mg 04/03/19 12:56 04/03/19 14:04 Tylenol - PO 650 mg Q4H PRN Administration Pain Level 4 - 10 FIRST LINE Atorvastatin Calcium 40 mg 03/30/19 22:00 04/02/19 22:07 Lipitor - PO 40 mg HS [facility] Administration Ertapenem 1 gm/ Sodium 50 mls @ 100 mls/hr 03/30/19 10:30 04/03/19 10:15 Chloride IVPB 100 mls/hr DAILY [facility] Administration Potassium Chloride 10 meq/ 1,005 mls @ 42 mls/hr 04/03/19 13:00 04/03/19 14: 40 Sodium Chloride IVPB 42 mls/hr Q24H [facility] Administration Insulin Aspart 1 vial 03/29/19 19:00 04/03/19 12:15 Novolog Vial Sliding Scale - SQ 4 units Q6HPO [facility] Administration Protocol Lactobacillus Acidophilus 1 tab 04/03/19 13:00 04/03/19 14:04 Bacid - PO 1 tab DAILY [facility] Administration Metoprolol Succinate 50 mg 04/01/19 10:00 04/03/19 10:15 Toprol Xl - PO 50 mg DAILY [facility] Administration Pantoprazole Sodium 40 mg 04/04/19 10:00 Protonix - PO DAILY [facility] Impression 1. CKD 2. DFU 3. HTN 4. DM 5. hx proteinuria 6. hyperlipidemia 7. appendicitis 8. ARA Plan - renal function is stable - pt started on feeds - can d/c fluids if tolerating - surgery follow up - will follow
--- NOTE | 2019-04-03 15:08 | PN ---
Progress Note, Physician Chief Complaint: Appendicits History of Present Illness: Previous notes and events reviewed awake and alert NAD patient was found on sitting on floor by RN this morning, patient states he was going to walk to the bathroom and his legs felt weak beneath him and he sat down on the ground, denies hitting his head, denies LOC last night events shows patient was noted to be diaphoretic and shivering with one episode of vomiting yesterday after drain was placed by IR, today patient is afebrile, and no acute events reported - Current Medication List Current Medications: Active Medications Acetaminophen (Tylenol -) 650 mg PO Q4H PRN PRN Reason: Pain Level 4 - 10 FIRST LINE Last Admin: 04/03/19 14:04 Dose: 650 mg Atorvastatin Calcium (Lipitor -) 40 mg PO HS [facility] Last Admin: 04/02/19 22:07 Dose: 40 mg Ertapenem 1 gm/ Sodium (Chloride) 50 mls @ 100 mls/hr IVPB DAILY [facility] Last Admin: 04/03/19 10:15 Dose: 100 mls/hr Potassium Chloride 10 meq/ (Sodium Chloride) 1,005 mls @ 42 mls/hr IVPB Q24H [facility] Last Admin: 04/03/19 14:40 Dose: 42 mls/hr Insulin Aspart (Novolog Vial Sliding Scale -) 1 vial SQ Q6HPO [facility]; Protocol Last Admin: 04/03/19 12:15 Dose: 4 units Lactobacillus Acidophilus (Bacid -) 1 tab PO DAILY [facility] Last Admin: 04/03/19 14:04 Dose: 1 tab Metoprolol Succinate (Toprol Xl -) 50 mg PO DAILY [facility] Last Admin: 04/03/19 10:15 Dose: 50 mg Pantoprazole Sodium (Protonix -) 40 mg PO DAILY [facility] - Objective Vital Signs: Vital Signs Temperature 99.0 F 04/03/19 14:46 Pulse Rate 84 04/03/19 14:46 Respiratory Rate 18 04/03/19 14:46 Blood Pressure 131/78 04/03/19 14:46 O2 Sat by Pulse Oximetry (%) 98 04/03/19 09:00 Constitutional: Yes: No Distress, Calm Eyes: Yes: Conjunctiva Clear HENT: Yes: Atraumatic Cardiovascular: Yes: Regular Rate and Rhythm Respiratory: Yes: Regular, CTA Bilaterally Gastrointestinal: Yes: Normal Bowel Sounds, Soft Musculoskeletal: Yes: Muscle Weakness Extremities: Yes: WNL Edema: No Integumentary: Yes: Other (IR drain from RLQ) Wound/Incision: Yes: Dressing Dry and Intact Neurological: Yes: Alert, Oriented Psychiatric: Yes: Alert, Oriented Labs: CBC, BMP 04/03/19 07:10 04/03/19 07:10 INR, PTT INR 1.12 (0.83-1.09) H 03/29/19 17:05 Microbiology 04/02/19 15:20 Abscess Body Fluid Culture - Preliminary Non Lactose Fermenting Gnb Lactose Fermenting Neg Bacilli 03/30/19 11:45 Nares - Mrsa Screen - Left MRSA Screen - Final NO MRSA ISOLATED 03/30/19 11:45 Nares - Mrsa Screen - Right MRSA Screen - Final NO MRSA ISOLATED 03/29/19 14:00 Urine - Urine Clean Catch Urine Culture - Final NO GROWTH OBTAINED Problem List - Problems (1) Acute appendicitis with perforation and localized peritonitis, without abscess or gangrene Assessment/Plan: -Surgery on board -Abd/Pelvic CT scan shows RLQ abscess that may have slightly decreased in size -ANTONIA drain noted RLQ with purulent output <50cc -IV hydration -pain control -leukocytosis -Ertapenem Code(s): K35.32 - ACUTE APPENDICITIS WITH PERF AND LOC PERITONITIS, W/O ABSCS (2) RLQ abdominal pain Assessment/Plan: -Surgery on board -Abd/Pelvic CT scan shows RLQ abscess that may have slightly decreased in size -ANTONIA drain noted RLQ with purulent output <50cc -IV hydration -pain control -leukocytosis -Ertapenem Code(s): R10.31 - RIGHT LOWER QUADRANT PAIN (3) HTN (hypertension) Assessment/Plan: -Metoprolol Code(s): I10 - ESSENTIAL (PRIMARY) HYPERTENSION Qualifiers: Hypertension type: essential hypertension Qualified Code(s): I10 - Essential (primary) hypertension (4) Hyperlipidemia Assessment/Plan: -Atorvastatin Code(s): E78.5 - HYPERLIPIDEMIA, UNSPECIFIED Qualifiers: Hyperlipidemia type: unspecified Qualified Code(s): E78.5 - Hyperlipidemia , unspecified (5) Acute kidney injury Assessment/Plan: -BUN/Cr11.0/1.0 -monitor renal function -Renal on board Code(s): N17.9 - ACUTE KIDNEY FAILURE, UNSPECIFIED (6) Diabetes mellitus Assessment/Plan: -BGM ACHS -ISS Code(s): E11.9 - TYPE 2 DIABETES MELLITUS WITHOUT COMPLICATIONS Qualifiers: Diabetes mellitus type: type 1 Diabetes mellitus complication status: with unspecified complications (7) PVD (peripheral vascular disease) Assessment/Plan: -Vascular on board -aspirin and plavix can be resumed tomorrow AM Code(s): I73.9 - PERIPHERAL VASCULAR DISEASE, UNSPECIFIED (8) Fall Assessment/Plan: -Fall precaution protocol -Hip/Pelvic Xray shows no acute fracture -Neuro checks -pt refused head CT scan -PT Code(s): W19.XXXA - UNSPECIFIED FALL, INITIAL ENCOUNTER Assessment/Plan see problem list dvt ppx
--- NOTE | 2019-04-03 15:27 | CONSULT ---
Consult - text type - Consultation Consultation Note: Podiatry Consultation: 58 year old poorly controlled diabetic, HTN, HLP, PVD, CKD male presents for inpatient management of perforated appendicitis. Being managed by medicine/ surgery team. Patient well known to me from wound healing center. S/p R TMA after multiple revascularization attempts RLE. Has been treated weekly in the wound healing center. We have treated patient with skin substitute grafting of the TMA stump diabetic ulcer. PMHx: IDDM, HTN, HLP, PVD, CKD Meds: noted ALL: zosyn SMITHA: Pedal pulses nonpalpable, TG wnl. On the right foot is a healed and epithelialized TMA stump diabetic ulcer, no depth, no drainage, no ascending cellulitis, no signs of active infection. Wound left sub-metatarsal diabetic ulcers with hyperkeratotic skin, no depth, no drainage, no purulence, no streaking cellulitis ,no signs of infection Imp: 58 year old diabetic male with healed diabetic foot ulcers, admitted for perforated appendicitis 1. Medical/surgical management 2. Continue with allevyn offloading padding changed every other day 3. We discussed weightbearing activity and appropriate glycemic management 4. Patient to f/u in 1 week in wound healing center Lisa Byrd DPM
[2019-04-03] MEDS: ATORVASTATIN CA 40 MG TABLET (FP) PO SCH (21:37)
[2019-04-04] MEDS: INSULIN SLIDING SCALE (NOVOLOG) 1 VIAL SQ SCH ×5 (00:40→17:19)
[2019-04-04 09:05] LABS: HEMATOCRIT 37.7 % (35.4-49); HEMOGLOBIN 12.7 GM/dL (11.7-16.9); MCH 27.3 pg (25.7-33.7); MCHC 33.7 g/dl (32.0-35.9); MEAN CELL VOLUME 81.1 fl (80-96); MEAN PLT VOLUME 8.4 fl (7.5-11.1); PLATELET COUNT 262 K/MM3 (134-434); RBC 4.65 M/mm3 (4.00-5.60); RDW 15.4 % (11.9-15.9); WHITE BLOOD COUNT 10.2 K/mm3 (4.0-10.0)
[2019-04-04 09:28] LABS: ALBUMIN 2.5 g/dl (3.4-5.0); BILIRUBIN,TOTAL 0.5 mg/dL (0.2-1); CALCIUM 8.1 mg/dL (8.5-10.1); PHOSPHOROUS 2.6 mg/dL (2.5-4.9); POTASSIUM 3.8 mmol/L (3.5-5.1); TOT PROT 6.3 g/dl (6.4-8.2)
--- NOTE | 2019-04-04 10:54 | PN ---
Progress Note, Physician Chief Complaint: Appendicits History of Present Illness: Previous notes and events reviewed awake and alert NAD no acute events over nights denies chest pain or SOB ANTONIA drain RLQ <50cc purulent drainage - Current Medication List Current Medications: Active Medications Acetaminophen (Tylenol -) 650 mg PO Q4H PRN PRN Reason: Pain Level 4 - 10 FIRST LINE Last Admin: 04/03/19 14:04 Dose: 650 mg Atorvastatin Calcium (Lipitor -) 40 mg PO HS [facility] Last Admin: 04/03/19 21:37 Dose: 40 mg Ertapenem 1 gm/ Sodium (Chloride) 50 mls @ 100 mls/hr IVPB DAILY [facility] Last Admin: 04/03/19 10:15 Dose: 100 mls/hr Potassium Chloride 10 meq/ (Sodium Chloride) 1,005 mls @ 42 mls/hr IVPB Q24H [facility] Last Admin: 04/03/19 14:40 Dose: 42 mls/hr Insulin Aspart (Novolog Vial Sliding Scale -) 1 vial SQ Q6HPO [facility]; Protocol Last Admin: 04/04/19 06:27 Dose: 2 units Lactobacillus Acidophilus (Bacid -) 1 tab PO DAILY [facility] Last Admin: 04/03/19 14:04 Dose: 1 tab Metoprolol Succinate (Toprol Xl -) 50 mg PO DAILY [facility] Last Admin: 04/03/19 10:15 Dose: 50 mg Pantoprazole Sodium (Protonix -) 40 mg PO DAILY [facility] - Objective Vital Signs: Vital Signs Temperature 98.0 F 04/04/19 06:30 Pulse Rate 77 04/04/19 06:30 Respiratory Rate 20 04/04/19 06:30 Blood Pressure 122/69 04/04/19 06:30 O2 Sat by Pulse Oximetry (%) 98 04/03/19 22:00 Constitutional: Yes: No Distress, Calm Eyes: Yes: Conjunctiva Clear HENT: Yes: Atraumatic Cardiovascular: Yes: Regular Rate and Rhythm Respiratory: Yes: Regular, CTA Bilaterally Gastrointestinal: Yes: Normal Bowel Sounds, Soft Musculoskeletal: Yes: Muscle Weakness Extremities: Yes: WNL Edema: No Wound/Incision: Yes: Dressing Dry and Intact Neurological: Yes: Alert, Oriented Psychiatric: Yes: Alert, Oriented Labs: CBC, BMP 04/04/19 08:46 04/04/19 07:10 INR, PTT INR 1.12 (0.83-1.09) H 03/29/19 17:05 Microbiology 04/02/19 17:15 Blood - Peripheral Venous Blood Culture - Preliminary NO GROWTH OBTAINED AFTER 24 HOURS, INCUBATION TO CONTINUE FOR 4 DAYS. 04/02/19 17:15 Blood - Peripheral Venous Blood Culture - Preliminary NO GROWTH OBTAINED AFTER 24 HOURS, INCUBATION TO CONTINUE FOR 4 DAYS. 04/02/19 15:20 Abscess Body Fluid Culture - Preliminary Non Lactose Fermenting Gnb Lactose Fermenting Neg Bacilli 03/30/19 11:45 Nares - Mrsa Screen - Left MRSA Screen - Final NO MRSA ISOLATED 03/30/19 11:45 Nares - Mrsa Screen - Right MRSA Screen - Final NO MRSA ISOLATED 03/29/19 14:00 Urine - Urine Clean Catch Urine Culture - Final NO GROWTH OBTAINED Problem List - Problems (1) Acute appendicitis with perforation and localized peritonitis, without abscess or gangrene Assessment/Plan: -Surgery on board -Abd/Pelvic CT scan shows RLQ abscess that may have slightly decreased in size -ANTONIA drain noted RLQ with purulent output <50cc -IV hydration -pain control -leukocytosis -Ertapenem -wound culture prelim positive Code(s): K35.32 - ACUTE APPENDICITIS WITH PERF AND LOC PERITONITIS, W/O ABSCS (2) RLQ abdominal pain Assessment/Plan: -Surgery on board -Abd/Pelvic CT scan shows RLQ abscess that may have slightly decreased in size -ANTONIA drain noted RLQ with purulent output <50cc -IV hydration -pain control -leukocytosis -Ertapenem Code(s): R10.31 - RIGHT LOWER QUADRANT PAIN (3) HTN (hypertension) Assessment/Plan: -Metoprolol Code(s): I10 - ESSENTIAL (PRIMARY) HYPERTENSION Qualifiers: Hypertension type: essential hypertension Qualified Code(s): I10 - Essential (primary) hypertension (4) Hyperlipidemia Assessment/Plan: -Atorvastatin Code(s): E78.5 - HYPERLIPIDEMIA, UNSPECIFIED Qualifiers: Hyperlipidemia type: unspecified Qualified Code(s): E78.5 - Hyperlipidemia , unspecified (5) Acute kidney injury Assessment/Plan: -BUN/Cr 10.0/1.0 -monitor renal function -Renal on board Code(s): N17.9 - ACUTE KIDNEY FAILURE, UNSPECIFIED (6) Diabetes mellitus Assessment/Plan: -BGM ACHS -ISS -Endocrinology consult -HgA1c -Dietary consult, patient non-compliant diabetic Code(s): E11.9 - TYPE 2 DIABETES MELLITUS WITHOUT COMPLICATIONS Qualifiers: Diabetes mellitus type: type 1 Diabetes mellitus complication status: with unspecified complications (7) PVD (peripheral vascular disease) Assessment/Plan: -Vascular on board -aspirin and plavix resumed Code(s): I73.9 - PERIPHERAL VASCULAR DISEASE, UNSPECIFIED (8) Fall Assessment/Plan: -Fall precaution protocol -Hip/Pelvic Xray shows no acute fracture -Neuro checks -pt refused head CT scan -PT Code(s): W19.XXXA - UNSPECIFIED FALL, INITIAL ENCOUNTER (9) Diabetic foot ulcer Assessment/Plan: -Podiatry consult -off-loading -allevyn offloading padding change every other day -needs close follow up at wound care center Code(s): E11.621 - TYPE 2 DIABETES MELLITUS WITH FOOT ULCER; L97.509 - NON- PRESSURE CHRONIC ULCER OTH PRT UNSP FOOT W UNSP SEVERITY Assessment/Plan see problem list dvt ppx patient is refusing SNF for discharge, will need visiting nurse home care services for ANTONIA drain dressing change and wound assessment and will need thorough education on ANTONIA drain care
[2019-04-04] MEDS: PANTOPRAZOLE 40 MG TABLET (FP) PO SCH (11:06)
[2019-04-04] MEDS: metoPROLOL SUCCINATE 25 MG TAB.SR.24H (FP) PO SCH (11:06)
[2019-04-04] MEDS: LACTOBACILLUS ACIDOPHILUS 1 TABLET PO SCH (11:06)
[2019-04-04] MEDS: ACETAMINOPHEN 325 MG TABLET (FP) PO PRN (11:06)
--- NOTE | 2019-04-04 11:07 | PN ---
Progress Note, Physician - Current Medication List Current Medications: Active Medications Acetaminophen (Tylenol -) 650 mg PO Q4H PRN PRN Reason: Pain Level 4 - 10 FIRST LINE Last Admin: 04/03/19 14:04 Dose: 650 mg Aspirin (Ecotrin -) 81 mg PO DAILY [facility] Atorvastatin Calcium (Lipitor -) 40 mg PO HS [facility] Last Admin: 04/03/19 21:37 Dose: 40 mg Clopidogrel Bisulfate (Plavix -) 75 mg PO DAILY [facility] Ertapenem 1 gm/ Sodium (Chloride) 50 mls @ 100 mls/hr IVPB DAILY [facility] Last Admin: 04/03/19 10:15 Dose: 100 mls/hr Potassium Chloride 10 meq/ (Sodium Chloride) 1,005 mls @ 42 mls/hr IVPB Q24H [facility] Last Admin: 04/03/19 14:40 Dose: 42 mls/hr Insulin Aspart (Novolog Vial Sliding Scale -) 1 vial SQ Q6HPO [facility]; Protocol Last Admin: 04/04/19 06:27 Dose: 2 units Lactobacillus Acidophilus (Bacid -) 1 tab PO DAILY [facility] Last Admin: 04/03/19 14:04 Dose: 1 tab Metoprolol Succinate (Toprol Xl -) 50 mg PO DAILY [facility] Last Admin: 04/03/19 10:15 Dose: 50 mg Pantoprazole Sodium (Protonix -) 40 mg PO DAILY [facility] - Objective Vital Signs: Vital Signs Temperature 98.0 F 04/04/19 06:30 Pulse Rate 77 04/04/19 06:30 Respiratory Rate 20 04/04/19 06:30 Blood Pressure 122/69 04/04/19 06:30 O2 Sat by Pulse Oximetry (%) 98 04/03/19 22:00 Labs: CBC, BMP 04/04/19 08:46 04/04/19 07:10 INR, PTT INR 1.12 (0.83-1.09) H 03/29/19 17:05
[2019-04-04] MEDS: ERTAPENEM SODIUM 1 GM in SODIUM CHLORIDE 50 ML IVPB SCH (13:00)
[2019-04-04] MEDS: CLOPIDOGREL BISULFATE 75 MG TABLET (FP) PO SCH (13:00)
[2019-04-04] MEDS: ASPIRIN COATED 81 MG TABLET.EC PO SCH (13:00)
[2019-04-04] MEDS: POTASSIUM CHLORIDE 10 MEQ in SODIUM CHLORIDE 0.45% 1,000 ML IVPB SCH (13:01)
--- NOTE | 2019-04-04 16:26 | PN ---
Progress Note (short form) - Note Progress Note: still some RLQ discomfort on ertapenem day #5 s/p drainage on 04/02 Vital Signs Period Temp Pulse Resp BP Sys/[place] Pulse Ox Last 24 Hr 97.7 F-99.6 F 69-98 18-20 122-159/69-84 98-98 cor-rrr llungs clear abd soft,nt +ANTONIA drain with purulent fluid ext wrapped CBC, BMP 04/04/19 08:46 04/04/19 07:10 Microbiology 04/02/19 15:20 Abscess Gram Stain - Final 04/02/19 15:20 Abscess Body Fluid Culture - Preliminary Pseudomonas Aeruginosa Escherichia Coli Group D Strep Or Entero Coccus 04/02/19 15:20 Abscess Anaerobic Culture - Preliminary Pending Organism 04/02/19 17:15 Blood - Peripheral Venous Blood Culture - Preliminary NO GROWTH OBTAINED AFTER 24 HOURS, INCUBATION TO CONTINUE FOR 4 DAYS. 04/02/19 17:15 Blood - Peripheral Venous Blood Culture - Preliminary NO GROWTH OBTAINED AFTER 24 HOURS, INCUBATION TO CONTINUE FOR 4 DAYS. 03/30/19 11:45 Nares - Mrsa Screen - Left MRSA Screen - Final NO MRSA ISOLATED 03/30/19 11:45 Nares - Mrsa Screen - Right MRSA Screen - Final NO MRSA ISOLATED 03/29/19 14:00 Urine - Urine Clean Catch Urine Culture - Final NO GROWTH OBTAINED a/p appendicitis- switch to levaquin/flagyl check crp to trend s/p drainage still continues to have purulent drainage history of DM PVD has a stent in the right leg bilateral toe amputations history of osteomyelitis history of MRSA in the past zosyn allergy (near syncope)-tolerated cephalosporins and carbapenems Problem List - Problems (1) Appendicitis Code(s): K37 - UNSPECIFIED APPENDICITIS Qualifiers: Appendicitis type: acute appendicitis Acute appendicitis type: unspecified acute appendicitis type Qualified Code(s): K35.80 - Unspecified acute appendicitis (2) Acute on chronic renal failure Code(s): N17.9 - ACUTE KIDNEY FAILURE, UNSPECIFIED; N18.9 - CHRONIC KIDNEY DISEASE, UNSPECIFIED Qualifiers: Acute renal failure type: unspecified Chronic kidney disease stage: unspecified stage Qualified Code(s): N17.9 - Acute kidney failure, unspecified ; N18.9 - Chronic kidney disease, unspecified; N18.9 - Chronic kidney disease, unspecified (3) Diabetes mellitus Code(s): E11.9 - TYPE 2 DIABETES MELLITUS WITHOUT COMPLICATIONS Qualifiers: Diabetes mellitus type: type 1 Diabetes mellitus complication status: with unspecified complications (4) PVD (peripheral vascular disease) Code(s): I73.9 - PERIPHERAL VASCULAR DISEASE, UNSPECIFIED
--- NOTE | 2019-04-04 18:27 | PN ---
Progress Note, Physician History of Present Illness: Pt seen and examined at bedside. He is awake and alert. He denies shortness of breath. He is tolerating diet. - Current Medication List Current Medications: Active Medications Acetaminophen (Tylenol -) 650 mg PO Q4H PRN PRN Reason: Pain Level 4 - 10 FIRST LINE Last Admin: 04/04/19 11:06 Dose: 650 mg Aspirin (Ecotrin -) 81 mg PO DAILY [facility] Last Admin: 04/04/19 13:00 Dose: 81 mg Atorvastatin Calcium (Lipitor -) 40 mg PO HS [facility] Last Admin: 04/03/19 21:37 Dose: 40 mg Clopidogrel Bisulfate (Plavix -) 75 mg PO DAILY [facility] Last Admin: 04/04/19 13:00 Dose: 75 mg Potassium Chloride 10 meq/ (Sodium Chloride) 1,005 mls @ 42 mls/hr IVPB Q24H [facility] Last Admin: 04/04/19 13:01 Dose: Not Given Metronidazole (Flagyl 500mg Premixed Ivpb -) 500 mg in 100 mls @ 100 mls/hr IVPB Q8H-IV [facility] Levofloxacin (Levaquin 500 Mg Premixed Ivpb -) 500 mg in 100 mls @ 100 mls/hr IVPB DAILY [facility]; Protocol Last Admin: 04/04/19 17:08 Dose: 100 mls/hr Insulin Aspart (Novolog Vial Sliding Scale -) 1 vial SQ Q6HPO [facility]; Protocol Last Admin: 04/04/19 17:19 Dose: Not Given Lactobacillus Acidophilus (Bacid -) 1 tab PO DAILY [facility] Last Admin: 04/04/19 11:06 Dose: 1 tab Metoprolol Succinate (Toprol Xl -) 50 mg PO DAILY [facility] Last Admin: 04/04/19 11:06 Dose: 50 mg Pantoprazole Sodium (Protonix -) 40 mg PO DAILY [facility] Last Admin: 04/04/19 11:06 Dose: 40 mg - Objective Vital Signs: Vital Signs Temperature 97.7 F 04/04/19 14:05 Pulse Rate 69 04/04/19 14:05 Respiratory Rate 20 04/04/19 14:05 Blood Pressure 141/75 04/04/19 14:05 O2 Sat by Pulse Oximetry (%) 98 04/04/19 09:00 Constitutional: Yes: Calm Eyes: Yes: Conjunctiva Clear HENT: Yes: Atraumatic Neck: Yes: Supple Cardiovascular: Yes: S1, S2 Respiratory: Yes: CTA Bilaterally Gastrointestinal: Yes: Soft Genitourinary: Yes: WNL Edema: No Neurological: Yes: Oriented Psychiatric: Yes: Oriented Labs: CBC, BMP 04/04/19 08:46 04/04/19 07:10 INR, PTT INR 1.12 (0.83-1.09) H 03/29/19 17:05 Problem List - Problems (1) Acute appendicitis with perforation and localized peritonitis, without abscess or gangrene Code(s): K35.32 - ACUTE APPENDICITIS WITH PERF AND LOC PERITONITIS, W/O ABSCS (2) Appendicitis Code(s): K37 - UNSPECIFIED APPENDICITIS Qualifiers: Appendicitis type: acute appendicitis Acute appendicitis type: unspecified acute appendicitis type Qualified Code(s): K35.80 - Unspecified acute appendicitis (3) Chronic kidney disease (CKD) Code(s): N18.9 - CHRONIC KIDNEY DISEASE, UNSPECIFIED Qualifiers: Chronic kidney disease stage: stage 3 (moderate) Qualified Code(s): N18.3 - Chronic kidney disease, stage 3 (moderate) Assessment/Plan Current Medications Generic Name Dose Route Start Last Admin Trade Name Freq PRN Reason Stop Dose Admin Acetaminophen 650 mg 04/03/19 12:56 04/04/19 11:06 Tylenol - PO 650 mg Q4H PRN Administration Pain Level 4 - 10 FIRST LINE Aspirin 81 mg 04/04/19 11:00 04/04/19 13:00 Ecotrin - PO 81 mg DAILY [facility] Administration Atorvastatin Calcium 40 mg 03/30/19 22:00 04/03/19 21:37 Lipitor - PO 40 mg HS [facility] Administration Clopidogrel Bisulfate 75 mg 04/04/19 11:00 04/04/19 13:00 Plavix - PO 75 mg DAILY [facility] Administration Potassium Chloride 10 meq/ 1,005 mls @ 42 mls/hr 04/03/19 13:00 04/04/19 13: 01 Sodium Chloride IVPB Not Given Q24H [facility] Metronidazole 500 mg in 100 mls @ 100 mls/hr 04/04/19 18:00 Flagyl 500mg Premixed Ivpb - IVPB Q8H-IV [facility] Levofloxacin 500 mg in 100 mls @ 100 mls/hr 04/04/19 16:30 04/04/19 17:08 Levaquin 500 Mg Premixed Ivpb - IVPB 100 mls/hr DAILY [facility] Administration Protocol Insulin Aspart 1 vial 03/29/19 19:00 04/04/19 17:19 Novolog Vial Sliding Scale - SQ Not Given Q6HPO [facility] Protocol Lactobacillus Acidophilus 1 tab 04/03/19 13:00 04/04/19 11:06 Bacid - PO 1 tab DAILY [facility] Administration Metoprolol Succinate 50 mg 04/01/19 10:00 04/04/19 11:06 Toprol Xl - PO 50 mg DAILY [facility] Administration Pantoprazole Sodium 40 mg 04/04/19 10:00 04/04/19 11:06 Protonix - PO 40 mg DAILY [facility] Administration Impression 1. CKD 2. DFU 3. HTN 4. DM 5. hx proteinuria 6. hyperlipidemia 7. appendicitis 8. ARA Plan - can observe off of fluids - pt is tolerating diet - monitor renal function - surgery follow up - will follow
[2019-04-04] MEDS: ATORVASTATIN CA 40 MG TABLET (FP) PO SCH (21:08)
--- NOTE | 2019-04-04 23:40 | CONSULT ---
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: Yes: Peripheral Neuropathy Cardio/Vascular: Yes: HTN, Hyperlipdemia, Other (peripheral vascular disease) Gastrointestinal: Yes: GERD Renal/: Yes: Renal Inusuff, Cancer (Prostate Cancer s/p seed implantations) Infectious Disease: Yes: MRSA (from foot bone cultures in past) Musculoskeletal: Yes: Osteoarthritis Endocrine: Yes: Diabetes Mellitus (Insulin dependent) - Past Surgical History Past Surgical History: Yes: Amputation (lt tma, rt tma after multiple toe amputations), Colonoscopy, Stent (vascular stent left leg) Additional Surgical History: prostate radiation seed implants - Alcohol/Substance Use Hx Alcohol Use: No History of Substance Use: reports: Marijuana (in past) - Smoking History Smoking history: Former smoker Have you smoked in the past 12 months: No Aproximately how many cigarettes per day: 15 If you are a former smoker, when did you quit?: 2013 - Social History Usual Living Arrangement: Other (with family) ADL: Independent Occupation: Former [employer] History of Recent Travel: No Home Medications - Allergies Allergies/Adverse Reactions: Allergies Allergy/AdvReac Type Severity Reaction Status Date / Time piperacillin [From Zosyn] Allergy Verified 11/13/18 12:35 tazobactam [From Zosyn] Allergy Verified 11/13/18 12:35 - Home Medications Home Medications: Ambulatory Orders Atorvastatin Calcium 40 mg PO HS 08/10/16 Insulin Degludec [Tresiba Flextouch U-100] 55 units SQ HS 01/01/17 Aspirin Coated [Ecotrin -] 81 mg PO DAILY tablet.ec 07/20/17 Insulin Aspart (Niacinamide) [Fiasp 100 Unit/ml Vial] 24 unit SQ TID 07/04/18 Semaglutide [Ozempic] 0.25 mg SQ Q30D 10/03/18 Pantoprazole Sodium 40 mg PO PRN PRN 10/19/18 Clopidogrel Bisulfate [Plavix -] 75 mg PO DAILY tablet 11/17/18 Metoprolol Succinate [Toprol XL -] 25 mg PO HS tab.sr.24h 11/17/18 Physical Exam Vital Signs: Vital Signs Temperature 98.0 F 04/04/19 22:35 Pulse Rate 96 H 04/04/19 22:35 Respiratory Rate 20 04/04/19 22:35 Blood Pressure 140/80 04/04/19 22:35 O2 Sat by Pulse Oximetry (%) 98 04/04/19 22:00 Labs: CBC, BMP 04/04/19 08:46 04/04/19 07:10
[2019-04-05] MEDS: INSULIN SLIDING SCALE (NOVOLOG) 1 VIAL SQ SCH ×4 (00:20→17:53)
[2019-04-05 09:30] LABS: HEMATOCRIT 36.8 % (35.4-49); HEMOGLOBIN 12.4 GM/dL (11.7-16.9); MCH 27.2 pg (25.7-33.7); MCHC 33.6 g/dl (32.0-35.9); MEAN PLT VOLUME 8.5 fl (7.5-11.1); PLATELET COUNT 264 K/MM3 (134-434); RBC 4.54 M/mm3 (4.00-5.60); RDW 15.2 % (11.9-15.9); WHITE BLOOD COUNT 9.5 K/mm3 (4.0-10.0)
[2019-04-05 09:56] LABS: ALBUMIN 2.3 g/dl (3.4-5.0); BILIRUBIN,TOTAL 0.4 mg/dL (0.2-1); CREATININE 1.1 mg/dL (0.55-1.3); POTASSIUM 3.8 mmol/L (3.5-5.1); TOT PROT 6.4 g/dl (6.4-8.2)
[2019-04-05] MEDS: ASPIRIN COATED 81 MG TABLET.EC PO SCH (10:13)
[2019-04-05] MEDS: LACTOBACILLUS ACIDOPHILUS 1 TABLET PO SCH (10:13)
[2019-04-05] MEDS: CLOPIDOGREL BISULFATE 75 MG TABLET (FP) PO SCH (10:13)
[2019-04-05] MEDS: PANTOPRAZOLE 40 MG TABLET (FP) PO SCH (10:13)
[2019-04-05] MEDS: metoPROLOL SUCCINATE 25 MG TAB.SR.24H (FP) PO SCH (10:13)
[2019-04-05] MEDS ORDERED: INSULIN (NOVOLOG) ASPART 100 UNITS/ML 10ML VIAL ONE (11:39)
--- NOTE | 2019-04-05 12:39 | PN ---
Progress Note, Physician Chief Complaint: Appendicits History of Present Illness: Previous notes and events reviewed awake and alert NAD denies abdominal pain denies chest pain or SOB ANTONIA drain RLQ <25cc purulent drainage - Current Medication List Current Medications: Active Medications Acetaminophen (Tylenol -) 650 mg PO Q4H PRN PRN Reason: Pain Level 4 - 10 FIRST LINE Last Admin: 04/04/19 11:06 Dose: 650 mg Aspirin (Ecotrin -) 81 mg PO DAILY [facility] Last Admin: 04/05/19 10:13 Dose: 81 mg Atorvastatin Calcium (Lipitor -) 40 mg PO HS [facility] Last Admin: 04/04/19 21:08 Dose: 40 mg Clopidogrel Bisulfate (Plavix -) 75 mg PO DAILY [facility] Last Admin: 04/05/19 10:13 Dose: 75 mg Metronidazole (Flagyl 500mg Premixed Ivpb -) 500 mg in 100 mls @ 100 mls/hr IVPB Q8H-IV [facility] Last Admin: 04/05/19 10:00 Dose: 100 mls/hr Levofloxacin (Levaquin 500 Mg Premixed Ivpb -) 500 mg in 100 mls @ 100 mls/hr IVPB DAILY [facility]; Protocol Last Admin: 04/04/19 17:08 Dose: 100 mls/hr Insulin Aspart (Novolog Vial Sliding Scale -) 1 vial SQ Q6HPO [facility]; Protocol Last Admin: 04/05/19 11:42 Dose: 4 units Lactobacillus Acidophilus (Bacid -) 1 tab PO DAILY [facility] Last Admin: 04/05/19 10:13 Dose: 1 tab Metoprolol Succinate (Toprol Xl -) 50 mg PO DAILY [facility] Last Admin: 04/05/19 10:13 Dose: 50 mg Pantoprazole Sodium (Protonix -) 40 mg PO DAILY [facility] Last Admin: 04/05/19 10:13 Dose: 40 mg - Objective Vital Signs: Vital Signs Temperature 98 F 04/05/19 09:00 Pulse Rate 72 04/05/19 09:00 Respiratory Rate 18 04/05/19 09:00 Blood Pressure 130/88 04/05/19 09:00 O2 Sat by Pulse Oximetry (%) 98 04/05/19 09:00 Constitutional: Yes: No Distress, Calm Eyes: Yes: Conjunctiva Clear HENT: Yes: Atraumatic Cardiovascular: Yes: Regular Rate and Rhythm Respiratory: Yes: Regular, CTA Bilaterally Gastrointestinal: Yes: Normal Bowel Sounds, Soft Musculoskeletal: Yes: Muscle Weakness Extremities: Yes: WNL Edema: No Wound/Incision: Yes: Dressing Dry and Intact Neurological: Yes: Alert, Oriented Psychiatric: Yes: Alert, Oriented Labs: CBC, BMP 04/05/19 09:15 04/05/19 09:15 INR, PTT INR 1.12 (0.83-1.09) H 03/29/19 17:05 Microbiology 04/02/19 17:15 Blood - Peripheral Venous Blood Culture - Preliminary NO GROWTH OBTAINED AFTER 48 HOURS, INCUBATION TO CONTINUE FOR 3 DAYS. 04/02/19 17:15 Blood - Peripheral Venous Blood Culture - Preliminary NO GROWTH OBTAINED AFTER 48 HOURS, INCUBATION TO CONTINUE FOR 3 DAYS. 04/02/19 15:20 Abscess Gram Stain - Final 04/02/19 15:20 Abscess Body Fluid Culture - Preliminary Pseudomonas Aeruginosa Escherichia Coli Group D Strep Or Entero Coccus 04/02/19 15:20 Abscess Anaerobic Culture - Preliminary Pending Organism 03/30/19 11:45 Nares - Mrsa Screen - Left MRSA Screen - Final NO MRSA ISOLATED 03/30/19 11:45 Nares - Mrsa Screen - Right MRSA Screen - Final NO MRSA ISOLATED 03/29/19 14:00 Urine - Urine Clean Catch Urine Culture - Final NO GROWTH OBTAINED Problem List - Problems (1) Acute appendicitis with perforation and localized peritonitis, without abscess or gangrene Assessment/Plan: -Surgery on board -Abd/Pelvic CT scan shows RLQ abscess that may have slightly decreased in size -ANTONIA drain noted RLQ with purulent output <25cc -IV hydration -pain control -no leukocytosis -Flagyl and Levaquin -wound culture prelim positive Code(s): K35.32 - ACUTE APPENDICITIS WITH PERF AND LOC PERITONITIS, W/O ABSCS (2) RLQ abdominal pain Assessment/Plan: -Surgery on board -Abd/Pelvic CT scan shows RLQ abscess that may have slightly decreased in size -ANTONIA drain noted RLQ with purulent output <50cc -IV hydration -pain control -no leukocytosis -Flagyl and levaquin Code(s): R10.31 - RIGHT LOWER QUADRANT PAIN (3) HTN (hypertension) Assessment/Plan: -Metoprolol Code(s): I10 - ESSENTIAL (PRIMARY) HYPERTENSION Qualifiers: Hypertension type: essential hypertension Qualified Code(s): I10 - Essential (primary) hypertension (4) Hyperlipidemia Assessment/Plan: -Atorvastatin Code(s): E78.5 - HYPERLIPIDEMIA, UNSPECIFIED Qualifiers: Hyperlipidemia type: unspecified Qualified Code(s): E78.5 - Hyperlipidemia , unspecified (5) Acute kidney injury Assessment/Plan: -BUN/Cr 9.0/1.0 -monitor renal function -Renal on board Code(s): N17.9 - ACUTE KIDNEY FAILURE, UNSPECIFIED (6) Diabetes mellitus Assessment/Plan: -BGM ACHS -ISS -Endocrinology consult~refused evaluation -HgA1c 8.4% (7.4% 12/2018) -Dietary consult, patient non-compliant diabetic Code(s): E11.9 - TYPE 2 DIABETES MELLITUS WITHOUT COMPLICATIONS Qualifiers: Diabetes mellitus type: type 1 Diabetes mellitus complication status: with unspecified complications (7) PVD (peripheral vascular disease) Assessment/Plan: -Vascular on board -aspirin and plavix resumed Code(s): I73.9 - PERIPHERAL VASCULAR DISEASE, UNSPECIFIED (8) Fall Assessment/Plan: -Fall precaution protocol -Hip/Pelvic Xray shows no acute fracture -Neuro checks -pt refused head CT scan -PT Code(s): W19.XXXA - UNSPECIFIED FALL, INITIAL ENCOUNTER (9) Diabetic foot ulcer Assessment/Plan: -Podiatry consult -off-loading -allevyn offloading padding change every other day -needs close follow up at wound care center Code(s): E11.621 - TYPE 2 DIABETES MELLITUS WITH FOOT ULCER; L97.509 - NON- PRESSURE CHRONIC ULCER OTH PRT UNSP FOOT W UNSP SEVERITY Assessment/Plan see problem list dvt ppx patient is refusing SNF for discharge, will need visiting nurse home care services for ANTONIA drain dressing change and wound assessment and will need thorough education on ANTONIA drain care
--- NOTE | 2019-04-05 17:02 | PN ---
Progress Note, Physician History of Present Illness: Pt seen and examined at bedside. He is awake and alert. He is tolerating clears and asking for solid food. He denies fevers or chills. - Current Medication List Current Medications: Active Medications Acetaminophen (Tylenol -) 650 mg PO Q4H PRN PRN Reason: Pain Level 4 - 10 FIRST LINE Last Admin: 04/04/19 11:06 Dose: 650 mg Aspirin (Ecotrin -) 81 mg PO DAILY [facility] Last Admin: 04/05/19 10:13 Dose: 81 mg Atorvastatin Calcium (Lipitor -) 40 mg PO HS [facility] Last Admin: 04/04/19 21:08 Dose: 40 mg Clopidogrel Bisulfate (Plavix -) 75 mg PO DAILY [facility] Last Admin: 04/05/19 10:13 Dose: 75 mg Metronidazole (Flagyl 500mg Premixed Ivpb -) 500 mg in 100 mls @ 100 mls/hr IVPB Q8H-IV [facility] Last Admin: 04/05/19 10:00 Dose: 100 mls/hr Levofloxacin (Levaquin 500 Mg Premixed Ivpb -) 500 mg in 100 mls @ 100 mls/hr IVPB DAILY [facility]; Protocol Last Admin: 04/05/19 12:00 Dose: 100 mls/hr Insulin Aspart (Novolog Vial Sliding Scale -) 1 vial SQ Q6HPO [facility]; Protocol Last Admin: 04/05/19 11:42 Dose: 4 units Lactobacillus Acidophilus (Bacid -) 1 tab PO DAILY [facility] Last Admin: 04/05/19 10:13 Dose: 1 tab Metoprolol Succinate (Toprol Xl -) 50 mg PO DAILY [facility] Last Admin: 04/05/19 10:13 Dose: 50 mg Pantoprazole Sodium (Protonix -) 40 mg PO DAILY [facility] Last Admin: 04/05/19 10:13 Dose: 40 mg - Objective Vital Signs: Vital Signs Temperature 98.4 F 04/05/19 15:53 Pulse Rate 69 04/05/19 15:53 Respiratory Rate 18 04/05/19 15:53 Blood Pressure 153/89 04/05/19 15:53 O2 Sat by Pulse Oximetry (%) 98 04/05/19 09:00 Constitutional: Yes: Calm Eyes: Yes: Conjunctiva Clear HENT: Yes: Atraumatic Neck: Yes: Supple Cardiovascular: Yes: S1, S2 Respiratory: Yes: CTA Bilaterally Gastrointestinal: Yes: Normal Bowel Sounds, Soft Genitourinary: Yes: WNL Musculoskeletal: Yes: WNL Edema: No Wound/Incision: Yes: Dressing Dry and Intact Neurological: Yes: Oriented Psychiatric: Yes: Oriented Labs: CBC, BMP 04/05/19 09:15 04/05/19 09:15 INR, PTT INR 1.12 (0.83-1.09) H 03/29/19 17:05 Problem List - Problems (1) Acute appendicitis with perforation and localized peritonitis, without abscess or gangrene Code(s): K35.32 - ACUTE APPENDICITIS WITH PERF AND LOC PERITONITIS, W/O ABSCS (2) Appendicitis Code(s): K37 - UNSPECIFIED APPENDICITIS Qualifiers: Appendicitis type: acute appendicitis Acute appendicitis type: unspecified acute appendicitis type Qualified Code(s): K35.80 - Unspecified acute appendicitis (3) Chronic kidney disease (CKD) Code(s): N18.9 - CHRONIC KIDNEY DISEASE, UNSPECIFIED Qualifiers: Chronic kidney disease stage: stage 3 (moderate) Qualified Code(s): N18.3 - Chronic kidney disease, stage 3 (moderate) Assessment/Plan Current Medications Generic Name Dose Route Start Last Admin Trade Name Freq PRN Reason Stop Dose Admin Acetaminophen 650 mg 04/03/19 12:56 04/04/19 11:06 Tylenol - PO 650 mg Q4H PRN Administration Pain Level 4 - 10 FIRST LINE Aspirin 81 mg 04/04/19 11:00 04/05/19 10:13 Ecotrin - PO 81 mg DAILY [facility] Administration Atorvastatin Calcium 40 mg 03/30/19 22:00 04/04/19 21:08 Lipitor - PO 40 mg HS [facility] Administration Clopidogrel Bisulfate 75 mg 04/04/19 11:00 04/05/19 10:13 Plavix - PO 75 mg DAILY [facility] Administration Metronidazole 500 mg in 100 mls @ 100 mls/hr 04/04/19 18:00 04/05/19 10:00 Flagyl 500mg Premixed Ivpb - IVPB 100 mls/hr Q8H-IV [facility] Administration Levofloxacin 500 mg in 100 mls @ 100 mls/hr 04/04/19 16:30 04/05/19 12:00 Levaquin 500 Mg Premixed Ivpb - IVPB 100 mls/hr DAILY [facility] Administration Protocol Insulin Aspart 1 vial 03/29/19 19:00 04/05/19 11:42 Novolog Vial Sliding Scale - SQ 4 units Q6HPO [facility] Administration Protocol Lactobacillus Acidophilus 1 tab 04/03/19 13:00 04/05/19 10:13 Bacid - PO 1 tab DAILY [facility] Administration Metoprolol Succinate 50 mg 04/01/19 10:00 04/05/19 10:13 Toprol Xl - PO 50 mg DAILY [facility] Administration Pantoprazole Sodium 40 mg 04/04/19 10:00 04/05/19 10:13 Protonix - PO 40 mg DAILY [facility] Administration Impression 1. CKD 2. DFU 3. HTN 4. DM 5. hx proteinuria 6. hyperlipidemia 7. appendicitis 8. ARA Plan - monitor renal function - diet advanced - surgery follow up - can see in office after discharge - will follow
--- NOTE | 2019-04-05 19:00 | PN ---
Progress Note, Physician History of Present Illness: Pt with perforated appendicitis, being treated conservatively. ASA/plavix back on (LLE stent). He is seen and examined in bed. RLQ pain is less, as is tenderness. Changed to Levofloxacin/Flagyl by ID, growing multiple sensitive organisms from abscess culture, including Pseudomonas. WBC normal. He tolerated diabetic fulls, had diabetic Na controlled dinner tonight. Had IR drain placed in periappendiceal abscess, cultures sent; ANTONIA drain with purulent drainage. Pt reports much less drainage in bulb. A1C checked - 8.4. Pt reports was previously 8.1. He declined to see Dr. Irving last night, but has seen him in hospital in past. Willing to take his name/number and call for outpatient appt at some point. He states Dr. Carr prescribes his DM medications. On Tresiba and Ozempic at home, both nonformulary here. - Current Medication List Current Medications: Active Medications Acetaminophen (Tylenol -) 650 mg PO Q4H PRN PRN Reason: Pain Level 4 - 10 FIRST LINE Last Admin: 04/04/19 11:06 Dose: 650 mg Aspirin (Ecotrin -) 81 mg PO DAILY [facility] Last Admin: 04/05/19 10:13 Dose: 81 mg Atorvastatin Calcium (Lipitor -) 40 mg PO HS [facility] Last Admin: 04/04/19 21:08 Dose: 40 mg Clopidogrel Bisulfate (Plavix -) 75 mg PO DAILY [facility] Last Admin: 04/05/19 10:13 Dose: 75 mg Metronidazole (Flagyl 500mg Premixed Ivpb -) 500 mg in 100 mls @ 100 mls/hr IVPB Q8H-IV [facility] Last Admin: 04/05/19 17:36 Dose: 100 mls/hr Levofloxacin (Levaquin 500 Mg Premixed Ivpb -) 500 mg in 100 mls @ 100 mls/hr IVPB DAILY [facility]; Protocol Last Admin: 04/05/19 12:00 Dose: 100 mls/hr Insulin Aspart (Novolog Vial Sliding Scale -) 1 vial SQ Q6HPO [facility]; Protocol Last Admin: 04/05/19 17:53 Dose: 2 units Lactobacillus Acidophilus (Bacid -) 1 tab PO DAILY [facility] Last Admin: 04/05/19 10:13 Dose: 1 tab Metoprolol Succinate (Toprol Xl -) 50 mg PO DAILY [facility] Last Admin: 04/05/19 10:13 Dose: 50 mg Pantoprazole Sodium (Protonix -) 40 mg PO DAILY [facility] Last Admin: 04/05/19 10:13 Dose: 40 mg - Objective Vital Signs: Vital Signs Temperature 98.4 F 04/05/19 15:53 Pulse Rate 69 04/05/19 15:53 Respiratory Rate 18 04/05/19 15:53 Blood Pressure 153/89 04/05/19 15:53 O2 Sat by Pulse Oximetry (%) 98 04/05/19 09:00 Constitutional: Yes: Well Nourished, No Distress, Calm Eyes: Yes: Conjunctiva Clear, EOM Intact HENT: Yes: Atraumatic, Normocephalic Gastrointestinal: Yes: Soft, Tenderness (less RLQ - also none below RLQ where he had sig tenderness before; more focally over drain area in RLQ, definitely improved). No: Distention, Tenderness, Rebound Extremities: No: Cool, Cyanosis Integumentary: No: Jaundice, Rash Wound/Incision: Yes: Dressing Dry and Intact (IR drain), Draining (~10ml purulent fluid in drain bulb). No: Dressing Removed Neurological: Yes: Alert, Oriented Labs: CBC, BMP 04/05/19 09:15 04/05/19 09:15 CMP Sodium 136 mmol/L (136-145) 04/05/19 09:15 Potassium 3.8 mmol/L (3.5-5.1) 04/05/19 09:15 Chloride 104 mmol/L (98-107) 04/05/19 09:15 Carbon Dioxide 25 mmol/L (21-32) 04/05/19 09:15 Anion Gap 7 MMOL/L (8-16) L 04/05/19 09:15 BUN 9.0 mg/dL (7-18) 04/05/19 09:15 Creatinine 1.1 mg/dL (0.55-1.3) 04/05/19 09:15 Est GFR (CKD-EPI)AfAm 84.12 04/05/19 09:15 Est GFR (CKD-EPI)NonAf 72.58 04/05/19 09:15 POC Glucometer 173 UNITS (80-120) 04/05/19 17:49 Random Glucose 288 mg/dL (74-106) H 04/05/19 09:15 Hemoglobin A1c % 8.4 % (4.2-6.3) H 04/05/19 09:15 Lactic Acid 1.9 mmol/L (0.4-2.0) 04/02/19 17:15 Calcium 8.0 mg/dL (8.5-10.1) L 04/05/19 09:15 Phosphorus 2.6 mg/dL (2.5-4.9) 04/04/19 07:10 Magnesium 2.0 mg/dL (1.8-2.4) 04/04/19 07:10 Total Bilirubin 0.4 mg/dL (0.2-1) 04/05/19 09:15 AST 16 U/L (15-37) 04/05/19 09:15 ALT 22 U/L (13-61) 04/05/19 09:15 Alkaline Phosphatase 92 U/L (45-117) 04/05/19 09:15 LD Total 160 U/L (87-246) 04/02/19 17:15 Troponin I < 0.02 ng/ml (0.00-0.05) 04/02/19 17:15 C-Reactive Protein 13.1 MG/DL (0.00-0.3) H 04/05/19 09:15 Total Protein 6.4 g/dl (6.4-8.2) 04/05/19 09:15 Albumin 2.3 g/dl (3.4-5.0) L 04/05/19 09:15 Microbiology 04/02/19 17:15 Blood Culture - Preliminary Blood - Peripheral Venous NO GROWTH OBTAINED AFTER 72 HOURS, INCUBATION TO CONTINUE FOR 2 DAYS. 04/02/19 17:15 Blood Culture - Preliminary Blood - Peripheral Venous NO GROWTH OBTAINED AFTER 72 HOURS, INCUBATION TO CONTINUE FOR 2 DAYS. 04/02/19 15:20 Gram Stain - Final Abscess Body Fluid Culture - Final Pseudomonas Aeruginosa Escherichia Coli Enterococcus Faecalis Anaerobic Culture - Final Bacteroides Uniformis Problem List - Problems (1) Acute appendicitis with perforation, localized peritonitis, and abscess Assessment/Plan: improved RLQ pain and tenderness s/p perc IR drain in periappendiceal abscess resumed asa/plavix off IV fluids advanced to diabetic, Na-controlled diet continue antibiotics per ID on bacid trend labs, watch lytes, renal function nephrology following pain meds prn - tylenol first line GI/DVT prophylaxis (home PPI) ambulation encouraged - in hallways cultures - abscess cx growing Pseudomonas, strep and Bacteroides blood cx negative monitor drain output, saline flush per IR - will NOT need flushes at home pt likely to end up going home with drain for at least several days - SW/CM to see about VNS services for drain care, emptying/teaching, monitoring d/c planning - with PO antibiotics per ID, once VNS arranged (tomorrow?) will need to f/u next week with Dr. Charles/IR to reassess for possible drain removal output needs to be <30ml/day AND preferably change to serous, not purulent, fluid 6-8 weeks after drain out and antibiotics completed, recovered from this episode , he should see GI for screening colonoscopy, as last one was years ago (he is not sure when) THEN, he may see a surgeon to discuss interval appendectomy should improve HbA1C prior to elective surgery as much as possible Code(s): K35.33 - ACUTE APPENDICITIS WITH PERF AND LOC PERITONITIS, WITH ABSCS Qualifiers: Appendicitis gangrene presence: unspecified whether gangrene present Qualified Code(s): K35.33 - Acute appendicitis with perforation and localized peritonitis, with abscess (2) RLQ abdominal pain Assessment/Plan: improved Code(s): R10.31 - RIGHT LOWER QUADRANT PAIN (3) CKD stage 3 due to type 2 diabetes mellitus Code(s): E11.22 - TYPE 2 DIABETES MELLITUS W DIABETIC CHRONIC KIDNEY DISEASE; N18.3 - CHRONIC KIDNEY DISEASE, STAGE 3 (MODERATE) (4) HTN (hypertension) Code(s): I10 - ESSENTIAL (PRIMARY) HYPERTENSION Qualifiers: Hypertension type: essential hypertension Qualified Code(s): I10 - Essential (primary) hypertension (5) Hyperlipidemia Code(s): E78.5 - HYPERLIPIDEMIA, UNSPECIFIED Qualifiers: Hyperlipidemia type: unspecified Qualified Code(s): E78.5 - Hyperlipidemia , unspecified (6) Diabetes mellitus with diabetic peripheral angiopathy without gangrene, with long-term current 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 Assessment/Plan: diabetes not controlled A1C 8.4 see above Code(s): E11.51 - TYPE 2 DIABETES W DIABETIC PERIPHERAL ANGIOPATH W/O GANGRENE; Z79.4 - [facility] [employer] (CURRENT) USE OF INSULIN Qualifiers: Diabetes mellitus type: type 2 Qualified Code(s): E11.51 - Type 2 diabetes mellitus with diabetic peripheral angiopathy without gangrene; Z79.4 - [facility] (current) 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
[2019-04-05] MEDS: ATORVASTATIN CA 40 MG TABLET (FP) PO SCH (21:33)
[2019-04-06] MEDS: INSULIN SLIDING SCALE (NOVOLOG) 1 VIAL SQ SCH ×5 (00:05→23:30)
[2019-04-06] MEDS: ASPIRIN COATED 81 MG TABLET.EC PO SCH (09:42)
[2019-04-06] MEDS: PANTOPRAZOLE 40 MG TABLET (FP) PO SCH (09:42)
[2019-04-06] MEDS: CLOPIDOGREL BISULFATE 75 MG TABLET (FP) PO SCH (09:42)
[2019-04-06] MEDS: metoPROLOL SUCCINATE 25 MG TAB.SR.24H (FP) PO SCH (09:42)
[2019-04-06] MEDS: LACTOBACILLUS ACIDOPHILUS 1 TABLET PO SCH (09:43)
[2019-04-06 09:47] LABS: HEMATOCRIT 40.1 % (35.4-49); HEMOGLOBIN 13.6 GM/dL (11.7-16.9); MCH 27.5 pg (25.7-33.7); MCHC 34.1 g/dl (32.0-35.9); MEAN CELL VOLUME 80.6 fl (80-96); MEAN PLT VOLUME 8.4 fl (7.5-11.1); PLATELET COUNT 312 K/MM3 (134-434); RBC 4.97 M/mm3 (4.00-5.60); RDW 15.2 % (11.9-15.9); WHITE BLOOD COUNT 10.3 K/mm3 (4.0-10.0)
[2019-04-06 10:13] LABS: ALBUMIN 2.7 g/dl (3.4-5.0); BILIRUBIN,TOTAL 0.4 mg/dL (0.2-1); BLOOD UREA NITROGEN 11.2 mg/dL (7-18); CALCIUM 8.9 mg/dL (8.5-10.1); CREATININE 1.3 mg/dL (0.55-1.3); POTASSIUM 4.3 mmol/L (3.5-5.1); TOT PROT 7.2 g/dl (6.4-8.2)
[2019-04-06] MEDS ORDERED: INSULIN (NOVOLOG) ASPART 100 UNITS/ML 10ML VIAL ONE ×2 (12:30→16:45)
--- NOTE | 2019-04-06 13:49 | PN ---
Progress Note, Physician History of Present Illness: Pt with perforated appendicitis, being treated conservatively. ASA/plavix back on (LLE stent). He is seen and examined in bed. RLQ pain is less, as is tenderness. On Levofloxacin/Flagyl per ID, growing multiple sensitive organisms from abscess culture, including Pseudomonas. He is tolerating diabetic Na controlled diet. Had IR drain placed in periappendiceal abscess, cultures sent; ANTONIA drain with low but still purulent drainage. A1C checked - 8.4. Pt reports was previously 8.1. He declined to see Dr. Irving here, but has seen him in hospital in past. Willing to take his name/ number and call for outpatient appt at some point. He states Dr. Carr prescribes his DM medications. On Tresiba and Ozempic at home, both nonformulary here. - Current Medication List Current Medications: Active Medications Acetaminophen (Tylenol -) 650 mg PO Q4H PRN PRN Reason: Pain Level 4 - 10 FIRST LINE Last Admin: 04/04/19 11:06 Dose: 650 mg Aspirin (Ecotrin -) 81 mg PO DAILY [facility] Last Admin: 04/06/19 09:42 Dose: 81 mg Atorvastatin Calcium (Lipitor -) 40 mg PO HS [facility] Last Admin: 04/05/19 21:33 Dose: 40 mg Clopidogrel Bisulfate (Plavix -) 75 mg PO DAILY [facility] Last Admin: 04/06/19 09:42 Dose: 75 mg Metronidazole (Flagyl 500mg Premixed Ivpb -) 500 mg in 100 mls @ 100 mls/hr IVPB Q8H-IV [facility] Last Admin: 04/06/19 09:42 Dose: 100 mls/hr Levofloxacin (Levaquin 500 Mg Premixed Ivpb -) 500 mg in 100 mls @ 100 mls/hr IVPB DAILY [facility]; Protocol Last Admin: 04/06/19 10:50 Dose: 100 mls/hr Insulin Aspart (Novolog Vial Sliding Scale -) 1 vial SQ Q6HPO [facility]; Protocol Last Admin: 04/06/19 12:42 Dose: 4 units Lactobacillus Acidophilus (Bacid -) 1 tab PO DAILY [facility] Last Admin: 04/06/19 09:43 Dose: 1 tab Metoprolol Succinate (Toprol Xl -) 50 mg PO DAILY [facility] Last Admin: 04/06/19 09:42 Dose: 50 mg Pantoprazole Sodium (Protonix -) 40 mg PO DAILY [facility] Last Admin: 04/06/19 09:42 Dose: 40 mg - Objective Vital Signs: Vital Signs Temperature 98.5 F 04/06/19 06:00 Pulse Rate 76 04/06/19 06:00 Respiratory Rate 20 04/06/19 06:00 Blood Pressure 136/77 04/06/19 06:00 O2 Sat by Pulse Oximetry (%) 98 04/05/19 20:10 Constitutional: Yes: Well Nourished, No Distress, Calm Eyes: Yes: Conjunctiva Clear, EOM Intact HENT: Yes: Atraumatic, Normocephalic Gastrointestinal: Yes: Soft, Tenderness (less in RLQ, focal to smaller area, no jose/guard, not inferiorly anymore), Other (IR drain in place). No: Distention Extremities: No: Cool, Cyanosis Integumentary: No: Jaundice, Rash Wound/Incision: Yes: Dressing Removed (IR drain dressing changed for new gauze, tegaderms with skin prep around edges), Draining (purulent fluid in bulb) Neurological: Yes: Alert, Oriented Labs: CBC, BMP 04/06/19 08:50 04/06/19 08:50 Microbiology 04/02/19 17:15 Blood Culture - Preliminary Blood - Peripheral Venous NO GROWTH OBTAINED AFTER 72 HOURS, INCUBATION TO CONTINUE FOR 2 DAYS. 04/02/19 17:15 Blood Culture - Preliminary Blood - Peripheral Venous NO GROWTH OBTAINED AFTER 72 HOURS, INCUBATION TO CONTINUE FOR 2 DAYS. 04/02/19 15:20 Gram Stain - Final Abscess Body Fluid Culture - Final Pseudomonas Aeruginosa Escherichia Coli Enterococcus Faecalis Anaerobic Culture - Final Bacteroides Uniformis Problem List - Problems (1) Acute appendicitis with perforation, localized peritonitis, and abscess Assessment/Plan: less RLQ pain and tenderness s/p perc IR drain in periappendiceal abscess on home asa/plavix tolerating diabetic, Na-controlled diet continue antibiotics per ID on bacid trend labs, watch lytes, renal function nephrology following pain meds prn - tylenol first line, not using since 04/04 GI/DVT prophylaxis (home PPI) ambulation encouraged - in hallways, working with PT cultures - abscess cx growing Pseudomonas, strep and Bacteroides blood cx negative monitor drain output - still pus in bulb if pt goes home with drain - SW/CM arranged [facility] services for drain care, emptying/teaching, monitoring if pt here until Tuesday, monitor drain output closely once it changes to serous fluid and not purulent, Dr. Charles/IR can reassess for possible drain removal no acute surgical intervention, will follow peripherally discussed with Dr. Cheung 6-8 weeks after drain out and antibiotics completed, recovered from this episode , he should see GI for screening colonoscopy, as last one was years ago (he is not sure when) THEN, he may see a surgeon to discuss interval appendectomy should improve HbA1C prior to elective surgery as much as possible Code(s): K35.33 - ACUTE APPENDICITIS WITH PERF AND LOC PERITONITIS, WITH ABSCS Qualifiers: Appendicitis gangrene presence: unspecified whether gangrene present Qualified Code(s): K35.33 - Acute appendicitis with perforation and localized peritonitis, with abscess (2) RLQ abdominal pain Assessment/Plan: improved even more Code(s): R10.31 - RIGHT LOWER QUADRANT PAIN (3) CKD stage 3 due to type 2 diabetes mellitus Code(s): E11.22 - TYPE 2 DIABETES MELLITUS W DIABETIC CHRONIC KIDNEY DISEASE; N18.3 - CHRONIC KIDNEY DISEASE, STAGE 3 (MODERATE) (4) HTN (hypertension) Code(s): I10 - ESSENTIAL (PRIMARY) HYPERTENSION Qualifiers: Hypertension type: essential hypertension Qualified Code(s): I10 - Essential (primary) hypertension (5) Hyperlipidemia Code(s): E78.5 - HYPERLIPIDEMIA, UNSPECIFIED Qualifiers: Hyperlipidemia type: unspecified Qualified Code(s): E78.5 - Hyperlipidemia , unspecified (6) Diabetes mellitus with diabetic peripheral angiopathy without gangrene, with long-term current 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 Assessment/Plan: diabetes not controlled A1C 8.4 see above sugars still high - would resume some type of insulin routinely (Tresiba not on formulary), consider checking with endo again needs optimal control grain sacker consulted Code(s): E11.51 - TYPE 2 DIABETES W DIABETIC PERIPHERAL ANGIOPATH W/O GANGRENE; Z79.4 - SENIOR LIVING (CURRENT) USE OF INSULIN Qualifiers: Diabetes mellitus type: type 2 Qualified Code(s): E11.51 - Type 2 diabetes mellitus with diabetic peripheral angiopathy without gangrene; Z79.4 - senior care (current) 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
--- NOTE | 2019-04-06 14:17 | PN ---
Progress Note, Physician Chief Complaint: patient seen and examined on iv abx ANTONIA drain in place purulent output bgm noted - Current Medication List Current Medications: Active Medications Acetaminophen (Tylenol -) 650 mg PO Q4H PRN PRN Reason: Pain Level 4 - 10 FIRST LINE Last Admin: 04/04/19 11:06 Dose: 650 mg Aspirin (Ecotrin -) 81 mg PO DAILY [facility] Last Admin: 04/06/19 09:42 Dose: 81 mg Atorvastatin Calcium (Lipitor -) 40 mg PO HS [facility] Last Admin: 04/05/19 21:33 Dose: 40 mg Clopidogrel Bisulfate (Plavix -) 75 mg PO DAILY [facility] Last Admin: 04/06/19 09:42 Dose: 75 mg Metronidazole (Flagyl 500mg Premixed Ivpb -) 500 mg in 100 mls @ 100 mls/hr IVPB Q8H-IV [facility] Last Admin: 04/06/19 09:42 Dose: 100 mls/hr Levofloxacin (Levaquin 500 Mg Premixed Ivpb -) 500 mg in 100 mls @ 100 mls/hr IVPB DAILY [facility]; Protocol Last Admin: 04/06/19 10:50 Dose: 100 mls/hr Insulin Aspart (Novolog Vial Sliding Scale -) 1 vial SQ Q6HPO [facility]; Protocol Last Admin: 04/06/19 12:42 Dose: 4 units Insulin Detemir (Levemir Vial) 10 units SQ HS [facility] Lactobacillus Acidophilus (Bacid -) 1 tab PO DAILY [facility] Last Admin: 04/06/19 09:43 Dose: 1 tab Metoprolol Succinate (Toprol Xl -) 50 mg PO DAILY [facility] Last Admin: 04/06/19 09:42 Dose: 50 mg Pantoprazole Sodium (Protonix -) 40 mg PO DAILY [facility] Last Admin: 04/06/19 09:42 Dose: 40 mg - Objective Vital Signs: Vital Signs Temperature 98.3 F 04/06/19 10:00 Pulse Rate 78 04/06/19 10:00 Respiratory Rate 20 04/06/19 10:00 Blood Pressure 161/91 04/06/19 10:00 O2 Sat by Pulse Oximetry (%) 98 04/05/19 20:10 Constitutional: Yes: Calm Cardiovascular: Yes: Regular Rate and Rhythm, S1, S2 Respiratory: Yes: CTA Bilaterally Gastrointestinal: Yes: Normal Bowel Sounds, Soft, Tenderness (in RLQ less than before), Other (ANTONIA drain with purulent output) Neurological: Yes: Alert, Oriented Labs: CBC, BMP 04/06/19 08:50 04/06/19 08:50 INR, PTT INR 1.12 (0.83-1.09) H 03/29/19 17:05 Problem List - Problems (1) RLQ abdominal pain Assessment/Plan: leukocytosis iv abx levaquin and flagyl restarted aspirin and plavix ANTONIA drain placed iv ppI Code(s): R10.31 - RIGHT LOWER QUADRANT PAIN (2) HTN (hypertension) Assessment/Plan: metoprolol Code(s): I10 - ESSENTIAL (PRIMARY) HYPERTENSION Qualifiers: Hypertension type: essential hypertension Qualified Code(s): I10 - Essential (primary) hypertension (3) Hyperlipidemia Assessment/Plan: lipitor Code(s): E78.5 - HYPERLIPIDEMIA, UNSPECIFIED Qualifiers: Hyperlipidemia type: unspecified Qualified Code(s): E78.5 - Hyperlipidemia , unspecified (4) PVD (peripheral vascular disease) Assessment/Plan: restarted aspirin and plavix Code(s): I73.9 - PERIPHERAL VASCULAR DISEASE, UNSPECIFIED (5) Chronic kidney disease (CKD) Assessment/Plan: ivf renal on board Code(s): N18.9 - CHRONIC KIDNEY DISEASE, UNSPECIFIED Qualifiers: Chronic kidney disease stage: stage 3 (moderate) Qualified Code(s): N18.3 - Chronic kidney disease, stage 3 (moderate)
--- NOTE | 2019-04-06 16:41 | PN ---
Progress Note, Physician History of Present Illness: Pt seen and examined at bedside. He is awake and alert. he denies shortness of breath. He is tolerating diet. - Current Medication List Current Medications: Active Medications Acetaminophen (Tylenol -) 650 mg PO Q4H PRN PRN Reason: Pain Level 4 - 10 FIRST LINE Last Admin: 04/04/19 11:06 Dose: 650 mg Aspirin (Ecotrin -) 81 mg PO DAILY [facility] Last Admin: 04/06/19 09:42 Dose: 81 mg Atorvastatin Calcium (Lipitor -) 40 mg PO HS [facility] Last Admin: 04/05/19 21:33 Dose: 40 mg Clopidogrel Bisulfate (Plavix -) 75 mg PO DAILY [facility] Last Admin: 04/06/19 09:42 Dose: 75 mg Metronidazole (Flagyl 500mg Premixed Ivpb -) 500 mg in 100 mls @ 100 mls/hr IVPB Q8H-IV [facility] Last Admin: 04/06/19 09:42 Dose: 100 mls/hr Levofloxacin (Levaquin 500 Mg Premixed Ivpb -) 500 mg in 100 mls @ 100 mls/hr IVPB DAILY [facility]; Protocol Last Admin: 04/06/19 10:50 Dose: 100 mls/hr Insulin Aspart (Novolog Vial Sliding Scale -) 1 vial SQ Q6HPO [facility]; Protocol Last Admin: 04/06/19 12:42 Dose: 4 units Lactobacillus Acidophilus (Bacid -) 1 tab PO DAILY [facility] Last Admin: 04/06/19 09:43 Dose: 1 tab Metoprolol Succinate (Toprol Xl -) 50 mg PO DAILY [facility] Last Admin: 04/06/19 09:42 Dose: 50 mg Pantoprazole Sodium (Protonix -) 40 mg PO DAILY [facility] Last Admin: 04/06/19 09:42 Dose: 40 mg - Objective Vital Signs: Vital Signs Temperature 98.7 F 04/06/19 14:00 Pulse Rate 76 04/06/19 14:00 Respiratory Rate 20 04/06/19 14:00 Blood Pressure 136/86 04/06/19 14:00 O2 Sat by Pulse Oximetry (%) 98 04/05/19 20:10 Constitutional: Yes: Calm Eyes: Yes: Conjunctiva Clear HENT: Yes: Atraumatic Neck: Yes: Supple Cardiovascular: Yes: S1, S2 Respiratory: Yes: CTA Bilaterally Gastrointestinal: Yes: Normal Bowel Sounds, Soft, Other (milagro drain) Genitourinary: Yes: WNL Musculoskeletal: Yes: Other (toe amputations) Edema: No Neurological: Yes: Oriented Psychiatric: Yes: Oriented Labs: CBC, BMP 04/06/19 08:50 04/06/19 08:50 INR, PTT INR 1.12 (0.83-1.09) H 03/29/19 17:05 Problem List - Problems (1) Acute appendicitis with perforation and localized peritonitis, without abscess or gangrene Code(s): K35.32 - ACUTE APPENDICITIS WITH PERF AND LOC PERITONITIS, W/O ABSCS (2) Appendicitis Code(s): K37 - UNSPECIFIED APPENDICITIS Qualifiers: Appendicitis type: acute appendicitis Acute appendicitis type: unspecified acute appendicitis type Qualified Code(s): K35.80 - Unspecified acute appendicitis (3) Chronic kidney disease (CKD) Code(s): N18.9 - CHRONIC KIDNEY DISEASE, UNSPECIFIED Qualifiers: Chronic kidney disease stage: stage 3 (moderate) Qualified Code(s): N18.3 - Chronic kidney disease, stage 3 (moderate) Assessment/Plan Current Medications Generic Name Dose Route Start Last Admin Trade Name Freq PRN Reason Stop Dose Admin Acetaminophen 650 mg 04/03/19 12:56 04/04/19 11:06 Tylenol - PO 650 mg Q4H PRN Administration Pain Level 4 - 10 FIRST LINE Aspirin 81 mg 04/04/19 11:00 04/06/19 09:42 Ecotrin - PO 81 mg DAILY [facility] Administration Atorvastatin Calcium 40 mg 03/30/19 22:00 04/05/19 21:33 Lipitor - PO 40 mg HS [facility] Administration Clopidogrel Bisulfate 75 mg 04/04/19 11:00 04/06/19 09:42 Plavix - PO 75 mg DAILY [facility] Administration Metronidazole 500 mg in 100 mls @ 100 mls/hr 04/04/19 18:00 04/06/19 09:42 Flagyl 500mg Premixed Ivpb - IVPB 100 mls/hr Q8H-IV [facility] Administration Levofloxacin 500 mg in 100 mls @ 100 mls/hr 04/04/19 16:30 04/06/19 10:50 Levaquin 500 Mg Premixed Ivpb - IVPB 100 mls/hr DAILY [facility] Administration Protocol Insulin Aspart 1 vial 03/29/19 19:00 04/06/19 12:42 Novolog Vial Sliding Scale - SQ 4 units Q6HPO [facility] Administration Protocol Lactobacillus Acidophilus 1 tab 04/03/19 13:00 04/06/19 09:43 Bacid - PO 1 tab DAILY [facility] Administration Metoprolol Succinate 50 mg 04/01/19 10:00 04/06/19 09:42 Toprol Xl - PO 50 mg DAILY [facility] Administration Pantoprazole Sodium 40 mg 04/04/19 10:00 04/06/19 09:42 Protonix - PO 40 mg DAILY [facility] Administration Impression 1. CKD 2. DFU 3. HTN 4. DM 5. hx proteinuria 6. hyperlipidemia 7. appendicitis 8. 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
[2019-04-06] MEDS: ATORVASTATIN CA 40 MG TABLET (FP) PO SCH (21:47)
[2019-04-06] MEDS ORDERED: INSULIN (LEVEMIR) 100 UNITS/ML UNITS SQ SCH (22:00)
[2019-04-07] MEDS: INSULIN SLIDING SCALE (NOVOLOG) 1 VIAL SQ SCH ×2 (06:28→12:06)
[2019-04-07] MEDS: ASPIRIN COATED 81 MG TABLET.EC PO SCH (09:06)
[2019-04-07] MEDS: metoPROLOL SUCCINATE 25 MG TAB.SR.24H (FP) PO SCH (09:06)
[2019-04-07] MEDS: CLOPIDOGREL BISULFATE 75 MG TABLET (FP) PO SCH (09:06)
[2019-04-07] MEDS: PANTOPRAZOLE 40 MG TABLET (FP) PO SCH (09:06)
[2019-04-07] MEDS: LACTOBACILLUS ACIDOPHILUS 1 TABLET PO SCH (09:06)
[2019-04-07 10:58] VITALS: BP 138/77; PULSE 76; TEMP 98.2
[2019-04-07 11:00] LABS: BASO % 0.6 % (0-2.0); EOS % 2.4 % (0-4.5); HEMATOCRIT 37.4 % (35.4-49); HEMOGLOBIN 12.7 GM/dL (11.7-16.9); LYMPH % 12.2 % (8-40); MCH 27.4 pg (25.7-33.7); MCHC 33.9 g/dl (32.0-35.9); MEAN CELL VOLUME 80.6 fl (80-96); NEUT % 78.8 % (42.8-82.8); PLATELET COUNT 297 K/MM3 (134-434); RBC 4.64 M/mm3 (4.00-5.60); WHITE BLOOD COUNT 9.7 K/mm3 (4.0-10.0)
--- NOTE | 2019-04-07 13:20 | DS ---
Physical Examination Vital Signs: Vital Signs Temperature 98.2 F 04/07/19 10:00 Pulse Rate 76 04/07/19 10:00 Respiratory Rate 20 04/07/19 10:00 Blood Pressure 138/77 04/07/19 10:00 O2 Sat by Pulse Oximetry (%) 98 04/07/19 08:19 Findings/Remarks: FEELS GOOD NO DISCHARGE FROM DRAIN TO APPENDIX Constitutional: Yes: No Distress Eyes: Yes: WNL HENT: Yes: WNL Neck: Yes: WNL Cardiovascular: Yes: Regular Rate and Rhythm Respiratory: Yes: WNL Gastrointestinal: Yes: Other (DRAIN RLQ MINIMAL WHITE PURELENT DISCHARGE SAME LEVEL FOR 2 DAYS) Renal/: Yes: WNL Musculoskeletal: Yes: Other Extremities: Yes: Deformity Integumentary: Yes: Pressure Ulcer, Venous Stasis Changes (CHRONIC LEG B/L ULCERS) Wound/Incision: Yes: Dressing Dry and Intact Neurological: Yes: Pre-Existing Deficit, Weakness ...Motor Strength: LLE, RLE Psychiatric: Yes: WNL Labs: CBC, BMP 04/07/19 10:28 04/06/19 08:50 Discharge Summary Problems reviewed: Yes Reason For Visit: APPENDICITIS Current Active Problems Acute appendicitis with perforation and localized peritonitis, without abscess or gangrene (Acute) Acute appendicitis with perforation, localized peritonitis, and abscess (Acute) Appendicitis (Acute) CKD stage 3 due to type 2 diabetes mellitus (Acute) Controlled diabetes mellitus with diabetic peripheral angiopathy without gangrene, without long-term current 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 (Acute) Dehydration (Acute) Diabetes mellitus with diabetic peripheral angiopathy without gangrene, with long-term current 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 (Acute) Fall (Acute) RLQ abdominal pain (Acute) HTN (hypertension) (Chronic) Hyperlipidemia (Chronic) PVD (peripheral vascular disease) (Chronic) Procedures: Principal: CT SCANS/LABS/CX Hospital Course: ADMITTED FOR IV ABX AND WOUND CARE, DRAIN INSERTED BY I.R. TO RLQ AND MONITORED ON MED-SRG. Health Concerns: DIABETIC CONTROL D/W PATIENT TO F/U WITH HIS PMD DR MIKE CARR Plan of Treatment: LEVAQUIN AND FLAGYLL FOR 10 DAYS RETURN TUESDAY OR TUESDAY TO DR SVEN Banuelos FOR DRAIN REMOVAL Goals: SURGERY IN 6-8 WEEKS APPENDECTOMY AND UMBILLICAL HERNIA REPAIR Condition: Improved - Instructions Diet, Activity, Other Instructions: RETURN HERE AT [facility] TUESDAY OR TUESDAY FOR DRAIN REMOVAL WITH DR CHARLES. LOW SALT/ADA D/W PATIENT IN PREPERATION FOR APPENDECTOMY 6-8 WEEKS F/U WITH DR JOSEPH OUTPATIENT HOME HEALTH AID REFERRAL CALLED/DISCUSSED WITH [employer] Referrals: Charan Charles MD [Staff Physician] - 1 Week (Call [phone] to follow up with Interventional Radiology regarding your drain and its removal.) Mike Carr [Primary Care Provider] - Navi Irving MD [Staff Physician] - Disposition: V[facility]/HOME HEALTH CARE - Home Medications Comprehensive Discharge Medication List: Ambulatory Orders Atorvastatin Calcium 40 mg PO HS 08/10/16 Insulin Degludec [Tresiba Flextouch U-100] 55 units SQ HS 01/01/17 Aspirin Coated [Ecotrin -] 81 mg PO DAILY tablet.ec 07/20/17 Insulin Aspart (Niacinamide) [Fiasp 100 Unit/ml Vial] 24 unit SQ TID 07/04/18 Semaglutide [Ozempic] 0.25 mg SQ Q30D 10/03/18 Pantoprazole Sodium 40 mg PO PRN PRN 10/19/18 Clopidogrel Bisulfate [Plavix -] 75 mg PO DAILY tablet 11/17/18 Metoprolol Succinate [Toprol XL -] 25 mg PO HS tab.sr.24h 11/17/18 Lactobacillus Acidophilus [Bacid -] 1 tab PO DAILY #30 tab 04/07/19 levoFLOXacin [Levaquin -] 500 mg PO DAILY #10 tablet 04/07/19 metroNIDAZOLE [Flagyl -] 500 mg PO TID #21 tablet 04/07/19 Prescription Drug Monitoring Program (I-STOP) results: I-STOP not reviewed
== END 2019-04-07 14:10 | disposition home health service (06) | DRG 372 ==
LOC: JER 13:08 → SUPCPDRO 13:08 → JERBED 16:36 → J6S 18:50
PROVIDERS: ADMIT Internal Medicine; ATTEND Family Medicine
PROC: 0W9G30Z Drainage of Peritoneal Cavity with Drainage Device, Percutaneous Approach (ICD-10-PCS; principal; 2019-04-02)
DX: K35.33 Acute appendicitis with perforation, localized peritonitis, and gangrene, with abscess (principal); N17.9 Acute kidney failure, unspecified; I10 Essential (primary) hypertension; K21.9 Gastro-esophageal reflux disease without esophagitis; E11.22 Type 2 diabetes mellitus with diabetic chronic kidney disease; R10.31 Right lower quadrant pain; E86.0 Dehydration; N18.3 Chronic kidney disease, stage 3 (moderate); E78.5 Hyperlipidemia, unspecified; E11.51 Type 2 diabetes mellitus with diabetic peripheral angiopathy without gangrene; Z79.4 Long term (current) 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; I13.10 Hypertensive heart and chronic kidney disease without heart failure, with stage 1 through stage 4 chronic kidney disease, or unspecified chronic kidney disease; E11.621 Type 2 diabetes mellitus with foot ulcer; E11.65 Type 2 diabetes mellitus with hyperglycemia
CPT/HCPCS: 36415; 49406; 71045-TC-FY; 73523-TC-FY; 74018-TC-FY; 74176-TC; 74177-TC; 76098-TC-FY; 76380-TC; 80048; 80053; 81003; 82436; 82565; 82962; 83036; 83605; 83615; 83735; 84100; 84133; 84300; 84484; 85025; 85027; 85610; 85730; 86140; 86850; 86900; 86901; 87040; 87070; 87075; 87081; 87086; 87186; 87205; 87899; 93005; 93010; 94010; 97116-GP; 97162-GP; 99284-25; C1729; C1769; J0131; J7030; Q9967

== ENCOUNTER → 2019-04-17 | Day surgery (SDC) | payer OTHER | END | disposition home or self-care (01) | LOC: JRADIR 09:16 | PROVIDERS: ATTEND Radiology Diagnostic Radiology | PROC: BW11YZZ Fluoroscopy of Abdomen and Pelvis using Other Contrast (ICD-10-PCS; principal; 2019-04-17) | DX: K65.1 Peritoneal abscess (principal) | CPT/HCPCS: 49424; 74176-TC; 76080-TC-FY ==

== ENCOUNTER → 2019-04-24 | Day surgery (SDC) | payer OTHER | END | disposition home or self-care (01) | LOC: JRADIR 09:44 | PROVIDERS: ATTEND Radiology Diagnostic Radiology | PROC: BW11YZZ Fluoroscopy of Abdomen and Pelvis using Other Contrast (ICD-10-PCS; principal; 2019-04-24) | DX: L02.211 Cutaneous abscess of abdominal wall (principal) | CPT/HCPCS: 49424; 76000-TC-FY; 76080-TC-FY ==

== ENCOUNTER 2019-06-05 06:24 | Day surgery (SDC) | payer OTHER ==
[2019-06-04 11:32] VITALS: BMI 26.6
[2019-06-05] MEDS ORDERED: BUPIVACAINE HCL/PF 0.5% (5 MG/ML) 30 ML VIAL IJ ONE ×2 (07:17→08:40)
[2019-06-05] MEDS ORDERED: KETOROLAC TROMETHAMINE 30 MG/1 ML VIAL ONE (07:27)
[2019-06-05] MEDS ORDERED: LIDOCAINE HCL/PF 2% SDV 5ML VIAL ONE ×2 (07:27→07:30)
[2019-06-05] MEDS ORDERED: PROPOFOL 20 ML ONE ×3 (07:27→10:15)
[2019-06-05] MEDS ORDERED: ROCURONIUM BROMIDE 50 MG/5 ML SYRINGE ONE (07:27)
[2019-06-05] MEDS ORDERED: ceFAZolin SODIUM 1 GM VIAL ONE (07:27)
[2019-06-05] MEDS ORDERED: DEXAMETHASONE SOD PHOSPHATE 4 MG/1 ML VIAL ONE (07:27)
[2019-06-05] MEDS ORDERED: SODIUM CHLORIDE 0.9% P/F 10 ML VIAL IJ ONE (07:27)
[2019-06-05] MEDS ORDERED: MIDAZOLAM HCL 2 MG/2 ML SINGLE DOSE VIAL ONE (07:28)
[2019-06-05] MEDS ORDERED: SUCCINYLCHOLINE CHLORIDE 200 MG/10 ML SYRINGE ONE (07:28)
[2019-06-05] MEDS ORDERED: INSULIN (NOVOLOG) ASPART 100 UNITS/ML 10ML VIAL ONE ×3 (07:34→16:54)
[2019-06-05] MEDS ORDERED: cefOXitin SODIUM 2 GM VIAL (RESTRICTED TO ID) IVPB ONE (07:58)
--- NOTE | 2019-06-05 08:03 | HP ---
History & Physical Update - History History: No Change Currently as noted:: from H&P 05/16/19 - no pain, drain capped. stopped asa/ plavix 05/29 last dos - Physical Physical: No Change - Assessment Assessment: No Change Currently as noted:: umbilical hernia, h/o perf appy w/drain, fistula - Plan Plan: No Change Currently as noted:: for hernia repair, lap poss open appy, poss bowel resxn
[2019-06-05] MEDS ORDERED: cefOXitin SODIUM 1 GM VIAL (RESTRICTED TO ID) IVPB ONE (08:28)
[2019-06-05] MEDS ORDERED: GLYCOPYRROLATE 0.2 MG/1 ML VIAL ONE (10:08)
[2019-06-05] MEDS ORDERED: NEOSTIGMINE METHYLSULFATE 0.5 MG/ML - 10 ML MDV ONE (10:08)
[2019-06-05] MEDS ORDERED: BENZOIN TINCTURE SWABSTICK TP ONE (10:21)
[2019-06-05] MEDS ORDERED: BENZOIN/ALOE VERA/STORAX/TOLU 58 ML BOTTLE TP ONE (10:31)
--- NOTE | 2019-06-05 10:55 | OP ---
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 ; umbilical hernia Operation: laparoscopic interval appendectomy with drain removal; umbilical hernia repair (primary) Findings: umbilical hernia with fat/omental content only; reduced, used for Jessica port, closed on way out; inflammatory adhesions of appendix to terminal ileum and RLQ sidewall, percutaneous drain entered appendiceal base at cecal junction; small bit of purulent drainage at drain site when entry first exposed; appendix and cuff of cecum stapled off proximal to junction, which was open after drain removal, avoiding TI/ileocecal valve Post-Operative Diagnosis: Same as Pre-op Surgeon: Balwinder Zapien Anesthesiologist/FIELD OPERATOR: Dylon Hernandez (w/Casi) Anesthesia: General, Local (20ml 0.5% marcaine) Specimens Removed: appendix (with cuff of cecum) to pathology; portion of percutaneous drain sent for gross only Estimated Blood Loss (mls): 20 Drains & Tubes with Location: Watters out at case end Drains, Volume Out (mls): 350 (UOP) Fluid Volume Replaced (mls): 1,200 (crystalloid) Operative Report Dictated: Yes
[2019-06-05] MEDS ORDERED: INSULIN SLIDING SCALE (NOVOLOG) 1 VIAL SQ SCH (11:00)
[2019-06-05] MEDS ORDERED: LACTATED RINGERS SOLUTION 1,000 ML IV SCH ×2 (11:00→16:35)
[2019-06-05] MEDS ORDERED: oxyCODONE HCL 5 MG TABLET PO PRN ×2 (11:02→16:35)
[2019-06-05] MEDS ORDERED: ONDANSETRON 4 MG/2 ML VIAL IVPUSH PRN ×2 (11:42→16:35)
[2019-06-05] MEDS ORDERED: ACETAMINOPHEN 325 MG TABLET (FP) PO SCH (12:00)
[2019-06-05] MEDS ORDERED: ACETAMINOPHEN 325 MG TABLET (FP) ONE ×2 (12:22→18:01)
[2019-06-05] MEDS ORDERED: IBUPROFEN 600 MG TABLET (FP) PO SCH (15:00)
[2019-06-05] MEDS ORDERED: IBUPROFEN 600 MG TABLET (FP) PO ONE (15:08)
[2019-06-05] MEDS: INSULIN SLIDING SCALE (NOVOLOG) 1 VIAL SQ SCH ×2 (16:30→21:05)
[2019-06-05] MEDS: ACETAMINOPHEN 325 MG TABLET (FP) PO SCH (18:00)
[2019-06-05] MEDS: IBUPROFEN 600 MG TABLET (FP) PO SCH (21:06)
[2019-06-05] MEDS ORDERED: ATORVASTATIN CA 40 MG TABLET (FP) PO SCH ×2 (22:00)
[2019-06-06] MEDS: ACETAMINOPHEN 325 MG TABLET (FP) PO SCH ×3 (00:27→14:03)
[2019-06-06 01:56] VITALS: TEMP 97.5
[2019-06-06] MEDS: IBUPROFEN 600 MG TABLET (FP) PO SCH ×2 (02:51→10:26)
[2019-06-06] MEDS: INSULIN SLIDING SCALE (NOVOLOG) 1 VIAL SQ SCH ×2 (06:18→11:56)
[2019-06-06] MEDS ORDERED: INSULIN (LEVEMIR) 100 UNITS/ML UNITS SQ ONE (07:15)
[2019-06-06] MEDS ORDERED: INSULIN SLIDING SCALE (NOVOLOG) 1 VIAL SQ ONE (07:16)
[2019-06-06 07:58] LABS: BASO % 0.5 % (0-2.0); EOS % 0.5 % (0-4.5); HEMATOCRIT 33.8 % (35.4-49); HEMOGLOBIN 11.6 GM/dL (11.7-16.9); LYMPH % 8.5 % (8-40); MCH 28.8 pg (25.7-33.7); MCHC 34.3 g/dl (32.0-35.9); MEAN CELL VOLUME 84.2 fl (80-96); MEAN PLT VOLUME 9.4 fl (7.5-11.1); MONO % 6.8 % (3.8-10.2); NEUT % 83.7 % (42.8-82.8); PLATELET COUNT 206 K/MM3 (134-434); RBC 4.02 M/mm3 (4.00-5.60); RDW 16.1 % (11.9-15.9); WHITE BLOOD COUNT 14.6 K/mm3 (4.0-10.0)
[2019-06-06 09:10] LABS: BLOOD UREA NITROGEN 39.1 mg/dL (7-18); CALCIUM 8.8 mg/dL (8.5-10.1); CREATININE 1.5 mg/dL (0.55-1.3); POTASSIUM 4.7 mmol/L (3.5-5.1)
[2019-06-06] MEDS ORDERED: metoPROLOL SUCCINATE 25 MG TAB.SR.24H (FP) PO SCH ×2 (10:00)
[2019-06-06] MEDS ORDERED: RAMIPRIL 5 MG CAPSULE (FP) PO SCH ×2 (10:00)
[2019-06-06] MEDS ORDERED: PANTOPRAZOLE 40 MG TABLET (FP) PO SCH ×2 (10:00)
[2019-06-06 10:31] VITALS: BP 149/77; PULSE 80
--- NOTE | 2019-06-06 12:33 | DS ---
Physical Examination Vital Signs: Vital Signs Temperature 97.5 F L 06/06/19 10:00 Pulse Rate 80 06/06/19 10:00 Respiratory Rate 19 06/06/19 10:00 Blood Pressure 149/77 06/06/19 10:00 O2 Sat by Pulse Oximetry (%) 95 06/06/19 09:00 Findings/Remarks: Pt s/p lap interval appendectomy with drain removal and umbilical hernia repair. Seen and examined in bed. Reports no pain, taking Tylenol as scheduled. Was unable to void initially last night, and was straight cathed for 600ml. After that, he has been voiding in urinal freely. Last bladder scan showed only 55ml residual per nurse. Tolerating diet, feels a little gassy, but not passing any yet. Has been OOB, ambulates with cane. Constitutional: Yes: Well Nourished, No Distress, Calm Eyes: Yes: Conjunctiva Clear, EOM Intact HENT: Yes: Atraumatic, Normocephalic Cardiovascular: Yes: Regular Rate and Rhythm Respiratory: Yes: Regular, CTA Bilaterally Gastrointestinal: Yes: Normal Bowel Sounds, Soft, Distention (mild), Tenderness (mild RLQ, LLQ - no jose/guard) Renal/: Yes: Other (voiding well in urinal since last night after straight cath). No: Bladder Distention Extremities: Yes: Amputation (bilateral TMAs, dressed). No: Cool, Cyanosis Integumentary: Yes: Incision (x3 dressed, plus dressing over RLQ drain site). No: Jaundice, Rash Wound/Incision: Yes: Steri Strips (under 3 dressings), Dressing Dry and Intact ( x4). No: Dressing Removed Neurological: Yes: Alert, Oriented Labs: CBC, BMP 06/06/19 06:55 06/06/19 06:55 Discharge Summary Problems reviewed: Yes Reason For Visit: H/O PERFORATED APPENDICITIS CECAL FISTULA HERNIA Current Active Problems CKD stage 3 due to type 2 diabetes mellitus (Acute) Diabetes mellitus with diabetic peripheral angiopathy without gangrene, with long-term current 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 (Acute) Encounter for change or removal of drains (Acute) Enterocutaneous fistula (Acute) H/O appendicitis (Acute) Hx of drainage of abscess (Acute) Umbilical hernia without obstruction or gangrene (Acute) HTN (hypertension) (Chronic) PVD (peripheral vascular disease) (Chronic) Procedures: Principal: laparoscopic interval appendectomy with percutaneous drain removal and umbilical hernia repair (primary) Hospital Course: 58yo M with multiple medical problems including umbilical hernia and PVD on asa/ plavix for LLE stent, and h/o perforated appendicitis in March with abscess s/ p percutaneous drain by IR, was known to have fistula through drain to cecum. Aspirin and plavix have been held since 05/29. He was admitted overnight for postop care and monitoring after laparoscopic interval appendectomy with drain removal and primary umbilical hernia repair. At OR, the drain was noted to be inside the appendiceal base. A Watters catheter was used during the case and removed in the room. Postoperatively, he was initially unable to void and required straight catheterization once on the floor, after which he was able to urinate freely in a urinal with minimal residual by bladder scan. He has ambulated, and is tolerating diabetic diet. Sugars have been elevated on sliding scale coverage only, as his usual diabetic meds are not on hospital formulary (Tresiba, Ozempic, Fiasp). Postop labs are consistent with his chronic kidney disease and mild postop leukocytosis. Incisional dressings are dry and intact, including the one over the drain site. Pain and tenderness are minimal, and managed well with Tylenol. He is ready for discharge home with lifting restrictions, to resume asa and plavix on Sunday 06/10, and to follow up with surgery on 06/18. Time spent on discharge: 35 minutes. Condition: Good - Instructions Diet, Activity, Other Instructions: Postoperative instructions: You had a laparoscopic interval appendectomy with drain removal and umbilical hernia repair on 06/05/[address] Balwinder Zapien of [facility]. Activity: Resume your usual activities gradually, but no heavy exertion or lifting more than 10-15 pounds for 4-6 weeks. Remove dressings 48 hours after surgery; sticky tapes underneath will fall off by themselves. You may shower daily after dressings are off, with just the sticky tapes, just pat the incision areas dry. No bath or swimming until skin incisions have fully healed. Eat lightly at first, but advance to your usual diabetic diet as tolerated. The site on the RIGHT side of your abdomen, where the drain was, will need to be covered with small gauze or bandaid daily until it heals over. Remove that dressing tomorrow also; it is ok to shower with it off. Then replace a small dressing after your shower daily to keep it covered, until the skin has healed. Pain: For pain, you may use and alternate Tylenol (acetaminophen) 1-2 pills and/ or ibuprofen 200 mg (1-3 pills) every 6 hours each as needed; this means that you can take one OR the other at 3-hour intervals. Do not take more than 4000mg of acetaminophen in a day. Take medications as prescribed or indicated on the labeling. You may resume taking your ASPIRIN and PLAVIX on June 10 - NOT BEFORE. Follow-up: Call [phone] to confirm your postop appointment (Monday 06/18 1: 30pm). Clinic is held in the [facility] on the fifth floor of [facility]. Call Dr. Zapien's office at [phone] if you have: * increasing pain not responsive to pain medication * fever of 101F or higher * vomiting * unusual or increasing bleeding or drainage from wounds * increasing redness or swelling at wound sites Also, see your primary medical doctor within 1-2 weeks. Referrals: Balwinder Zapien MD [Staff Physician] - Darren Carr [Non Staff, Medical] - Disposition: HOME - Home Medications Comprehensive Discharge Medication List: Ambulatory Orders Atorvastatin Calcium 40 mg PO HS 08/10/16 Insulin Degludec [Tresiba Flextouch U-100] 55 units SQ HS 01/01/17 Insulin Aspart (Niacinamide) [Fiasp 100 Unit/ml Vial] 24 unit SQ TID 07/04/18 Pantoprazole Sodium 40 mg PO PRN PRN 10/19/18 Metoprolol Succinate [Toprol XL -] 25 mg PO HS tab.sr.24h 11/17/18 Ramipril 5 mg PO DAILY 06/05/19 Acetaminophen [Tylenol .Regular Strength -] 650 mg PO Q6H tablet 06/06/19 Aspirin Coated [Ecotrin -] 81 mg PO DAILY #0 tablet.ec 06/06/19 Clopidogrel Bisulfate [Plavix -] 75 mg PO DAILY #0 tablet 06/06/19 Ibuprofen [Motrin -] 600 mg PO Q6H tablet 06/06/19 To resume aspirin and plavix on Tuesday, not before.
--- NOTE | 2019-06-07 16:36 | PATH ---
Surgical Pathology Report Patient Name: STEVE CALDERON [facility]. Rec. #: [id number] /Age/Gender: 1960 (Age: 58) / M Account: [id number] Location: AMBULATORY SURG Taken: 06/05/2019 Received: 06/05/2019 Reported: 06/07/2019 Physicians: Balwinder Zapien M.D. Specimen(s) Received A: APPENDIX B: FOREIGN BODY Clinical History History of perforated appendicitis with cecal fistula to drain and umbilical hernia Final Diagnosis A. APPENDIX, LAPAROSCOPIC INTERVAL APPENDECTOMY: APPENDIX WITH ACUTE APPENDICITIS, LUMINAL ACUTE AND CHRONIC INFLAMMATORY EXUDATE, AND GRANULATION TISSUE. SUBSEROSAL TISSUE WITH MARKED CHRONIC AND HISTIOCYTIC INFILTRATE, FOREIGN BODY (ORGANIC) MATERIAL, AND ASSOCIATED FOREIGN BODY GIANT CELL REACTION, COMPATIBLE WITH HISTORY OF PERFORATION. SEROSAL ADHESIONS. PORTION OF CECUM WITH REACTIVE LYMPHOID AGGREGATES. SURGICAL MARGIN IS VIABLE. B. PERCUTANEOUS DRAINAGE, REMOVAL: PORTION OF TUBING CONSISTENT WITH DRAIN. MACROSCOPIC DIAGNOSIS. Electronically Signed Susie Pollard M.D. Gross Description A. Received in formalin labeled "appendix," is a 4.0 x 2.0 x 2.0 cm portion of bowel with an attached 4.5 cm in length appendix. The outer surface is anaya-pink with multifocal adhesions and attached fat. The bowel mucosa displays a stapled margin of resection. Sectioning reveals a focally hemorrhagic lumen. The wall of the appendix averages 0.2 cm in thickness. Electronics Recycler sections are submitted in 3 cassettes as follows: [id number] appendix; 3-scheduling representative bowel; 4- surgical margin. B. Received fresh labeled "percutaneous drain," is a 19.5 cm in length blue, coiled portion of tubing, consistent with a drain. No soft tissue is present. No sections are submitted, gross only. DL/06/05/2019 saudi06/05/2019
--- NOTE | 2019-06-22 18:58 | OP ---
DATE OF OPERATION: 06/05/2019 PREOPERATIVE DIAGNOSES: History of perforated appendicitis with cecal fistula to percutaneous drain and also umbilical hernia. POSTOPERATIVE DIAGNOSES: History of perforated appendicitis with cecal fistula to percutaneous drain and also umbilical hernia. PROCEDURE: Laparoscopic interval appendectomy with removal of percutaneous drain and primary umbilical hernia repair. SURGEON: Balwinder Zapien MD ANESTHESIA: General endotracheal and local, 20 mL of 0.5% Marcaine. ESTIMATED BLOOD LOSS: 20 mL. FLUIDS: Crystalloid 1200 mL. URINE OUTPUT: 350 mL (Watters out at end of case). SPECIMEN: Appendix including small cuff of cecum sent to Pathology and portion of percutaneous drain sent for gross identification only. FINDINGS: Umbilical hernia with fat and omental content only which was reduced, used for the Jessica port and closed on the way out. Inflammatory adhesions of the appendix to the terminal ileum and right lower quadrant sidewall. The percutaneous drain entered the appendiceal base just at the cecal junction. There was a small bit of purulence at the drain site when first exposed. The appendix with a cuff of cecum were stapled proximal to the junction avoiding the ileocecal valve. DISPOSITION: Stable and extubated to PACU. INDICATIONS FOR PROCEDURE: The patient is a 58-year-old male with multiple medical problems including peripheral vascular disease and diabetes, on aspirin and Plavix which has been held for 1 week, also an umbilical hernia and a history of perforated appendicitis in March with abscess formation, status post percutaneous drain placed by Interventional Radiology who was known to have a fistula through the drain to the cecum on attempted removal so the drain had been left in place. He had been treated with antibiotics with resolution of symptoms. Aspirin and Plavix had been held for 1 week and he was consented for laparoscopic, possible open appendectomy, possible bowel resection and umbilical hernia repair with a discussion of risks, benefits and alternatives including but not limited to bleeding, infection, injury to adjacent structures, intestinal leak or injury, intraabdominal abscess, recurrent or incisional hernia and . Alternatives included no surgery, but the presence of the percutaneous drain and the fistula necessitated that for removal of the drain. He was agreeable to surgery, had signed informed consent and is now brought to the operating room for this procedure. OPERATIVE TECHNIQUE: The patient was brought to the operating room and laid supine on the operating table. Sequential compression devices were applied to bilateral lower extremities and preoperative antibiotics were used immediately prior to the procedure (2 g of cefoxitin). After induction and intubation by Anesthesia a Wattesr catheter was placed in the patient's bladder which was removed at the end of the case. His lower abdominal hair had been clipped prior to entering the room. The percutaneous drain site was exposed and the patient's abdomen including the percutaneous drain was prepped and draped in sterile fashion. A small umbilical incision was made with a scalpel and carried into subcutaneous tissues with electrocautery until the hernia sac was identified with fatty content. The fat at the umbilical hernia was carefully circumscribed and from the fascia at the level of the fascia and reduced into the abdominal cavity. The fascial edges were grasped with Wolf clamps and a finger sweep was used to ensure that the underside of the abdominal wall was clear for placement of a pmyjtt-gq-sjygq 0 Vicryl suture which would be used to close the defect on the way out. The Jessica port was then introduced directly into the abdominal cavity and secured in place with a balloon. The abdomen was insufflated with carbon dioxide and the patient placed in Trendelenburg position. A laparoscope was inserted to inspect the abdominal cavity and 2 additional 5-mm ports were placed in the left lower quadrant and suprapubic areas under direct vision. The camera was moved to the left lower quadrant port. Two graspers were introduced to examine the area and attempt to identify the appendix and the site where the drain came into the abdominal sidewall. The tip of the appendix was fairly quickly identified and was somewhat adherent down toward the inguinal canal. This was bluntly with a grasper and a Maryland dissector. The end of the appendix was then grasped and used to follow it back up toward the cecal junction. The cecum itself was also identified. There were adhesions of fat to the abdominal sidewall that appeared to be covering the site where the drain came in from previous CT studies. It was believed that it was possible that the pigtail portion of the drain itself actually entered the base of the appendix. The terminal ileum was also identified with the veDhiraj and gently manipulated medially to ensure that it was clear where the small bowel entered the cecum. Dissection was undertaken at the abdominal sidewall at the area where the drain was known to enter and a very small bit of purulence was encountered at one point when the entry site of the drain was exposed and noted to, as expected, directly enter the base of the appendix. This was suctioned and the suction relief driller was used throughout the case to suction fluid and blood from the operative site. Very little irrigation was undertaken. The drain was left in situ as the Maryland dissector was used to begin creating a window around the base of the appendix and underneath the base of the cecum. It was clear that I would need to be able to staple not only the base of the appendix but a small cuff of cecum with it to ensure complete closure of the bowel above the level of drain entry. Ultimately the 10-mm right-angle dissector was also used to assist in creating this window and prior to being able to complete the window the drain itself popped out of the base of the appendix, making clear the appendiceal orifice directly into the cecum. The drain itself was then removed the rest of the way from the abdominal wall and the cut portion sent for pathology for gross identification only. The remaining portion of the appendix where it was adherent to the right lower quadrant sidewall was carefully bluntly and the window around the base of it and around the cuff of cecum completed such that an Endo-MERY stapler with a purple load was introduced and used to transect the base of the appendix including a small portion of the cecum. A 2nd load was required to complete this transection. White loads of the Endo-MERY stapler were then used to complete careful transection of the mesoappendix taking great care to avoid the terminal ileum, veil of Treves and the ileocecal valve. Once the appendix with the cuff of cecum had been entirely it was set aside in the right lower quadrant for a brief period while the staple lines were inspected for hemostasis. Cautery and the [place] dissector were used to touch a couple of tiny oozing spots, but ultimately hemostasis was noted to be very good and no active bleeding was observed. The specimen was then placed in an EndoCatch bag and retrieved up into the umbilical port. The field was lastly inspected for hemostasis and the suction relief driller used to ensure clearance of any remaining fluid. The suprapubic port was then withdrawn under direct vision, the appendix in the bag retrieved out the umbilical port site under direct vision and the camera and left lower quadrant port withdrawn together. The specimen was passed off to be sent to Pathology. The abdomen was exsufflated of carbon dioxide and patient was returned to neutral position. The Jessica port was then closed with the stay suture, effectively eliminating the umbilical hernia defect as well by tying the suture that was placed. Hemostasis was achieved in the port sites with electrocautery where needed. Local anesthetic was infiltrated into all port sites and skin was closed with 4-0 Vicryl subcuticular sutures including a running at the umbilicus. The base of the umbilicus was tacked down with 3-0 Vicryl prior to skin closure. Then benzoin and Steri-Strips were applied over each incision. Dressings of gauze and Tegaderm were placed over these and the Watters catheter was removed from the patient's bladder. Counts were correct at the end of the procedure. The patient was then awakened and extubated by Anesthesia, moved back to a stretcher and taken to the recovery room in stable condition, having tolerated the procedure well. Balwinder Zapien M.D. [id number]
== END 2019-06-06 13:00 | disposition home or self-care (01) ==
LOC: JASUSAT 06:24 → J4S 18:51 → JASUSAT 06-06 13:00
PROVIDERS: ATTEND Surgery
PROC: 0WPG00Z Removal of Drainage Device from Peritoneal Cavity, Open Approach (ICD-10-PCS; 2019-06-05)
PROC: 0DTJ4ZZ Resection of Appendix, Percutaneous Endoscopic Approach (ICD-10-PCS; principal; 2019-06-05 08:40)
PROC: 0WQF4ZZ Repair Abdominal Wall, Percutaneous Endoscopic Approach (ICD-10-PCS; 2019-06-05 08:40)
DX: K35.32 Acute appendicitis with perforation, localized peritonitis, and gangrene, without abscess (principal); K63.2 Fistula of intestine; K42.9 Umbilical hernia without obstruction or gangrene; I12.9 Hypertensive chronic kidney disease with stage 1 through stage 4 chronic kidney disease, or unspecified chronic kidney disease; E11.22 Type 2 diabetes mellitus with diabetic chronic kidney disease; N18.3 Chronic kidney disease, stage 3 (moderate); I73.9 Peripheral vascular disease, unspecified; Z79.4 Long term (current) 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; Z79.2 Long term (current) use of antibiotics
CPT/HCPCS: 36415; 80048; 82962; 85025; 86850; 86900; 86901; 94760

== ENCOUNTER → 2019-08-02 | Day surgery (SDC) | payer OTHER | END | disposition home or self-care (01) | LOC: JRADIR 08:57 | PROVIDERS: ATTEND Internal Medicine | PROC: 05HM33Z Insertion of Infusion Device into Right Internal Jugular Vein, Percutaneous Approach (ICD-10-PCS; principal; 2019-08-02) | PROC: B543ZZA Ultrasonography of Right Jugular Veins, Guidance (ICD-10-PCS; 2019-08-02) | DX: M86.072 Acute hematogenous osteomyelitis, left ankle and foot (principal); E11.9 Type 2 diabetes mellitus without complications; N28.9 Disorder of kidney and ureter, unspecified | CPT/HCPCS: 36558; C1751; 77001-TC-FY ==

== ENCOUNTER 2019-08-09 06:34 | Day surgery (SDC) | payer OTHER ==
[2019-08-07 16:39] VITALS: BMI 26.6
[2019-08-09] MEDS ORDERED: HEPARIN NA (PORCINE) 5,000 UNITS/ML 1ML VIAL ONE (09:01)
[2019-08-09] MEDS ORDERED: LIDOCAINE HCL 1%, 10 MG/ML (20ML VIAL) ONE (09:01)
[2019-08-09] MEDS ORDERED: ceFAZolin SODIUM 1 GM VIAL IVPB ONE (09:19)
[2019-08-09] MEDS ORDERED: MIDAZOLAM HCL 2 MG/2 ML SINGLE DOSE VIAL ONE ×2 (09:23)
[2019-08-09] MEDS ORDERED: PROPOFOL 20 ML ONE (09:23)
--- NOTE | 2019-08-09 09:23 | HP ---
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: Peripheral Neuropathy Cardiovascular: Yes: HTN, Hyperlipdemia, Other (peripheral vascular disease) Gastrointestinal: Yes: GERD Renal/: Yes: Renal Inusuff, Cancer (Prostate Cancer s/p seed implantations) Infectious Disease: Yes: MRSA Musculoskeletal: Yes: Osteoarthritis Endocrine: Yes: Diabetes Mellitus (Insulin dependent) - Past Surgical History Past Surgical History: Yes: Amputation, Stent, Stent - Smoking History Smoking history: Former smoker Have you smoked in the past 12 months: No Aproximately how many cigarettes per day: 15 If you are a former smoker, when did you quit?: 2013 - Alcohol/Substance Use Hx Alcohol Use: No (QUIT 2012) History of Substance Use: reports: Marijuana (in past) - Social History ADL: Independent Occupation: Former [employer] History of Recent Travel: No Home Medications - Allergies Allergies/Adverse Reactions: Allergies Allergy/AdvReac Type Severity Reaction Status Date / Time piperacillin [From Zosyn] Allergy Swelling Verified 06/04/19 11:33 tazobactam [From Zosyn] Allergy Swelling Verified 06/04/19 11:33 - Home Medications Home Medications: Ambulatory Orders Atorvastatin Calcium 40 mg PO HS 08/10/16 Insulin Degludec [Tresiba Flextouch U-100] 55 units SQ HS 01/01/17 Insulin Aspart (Niacinamide) [Fiasp 100 Unit/ml Vial] 24 unit SQ TID 07/04/18 Pantoprazole Sodium 40 mg PO PRN PRN 10/19/18 Metoprolol Succinate [Toprol XL -] 25 mg PO HS tab.sr.24h 11/17/18 Ramipril 5 mg PO DAILY 06/05/19 Aspirin Coated [Ecotrin -] 81 mg PO DAILY #0 tablet.ec 06/06/19 Clopidogrel Bisulfate [Plavix -] 75 mg PO DAILY #0 tablet 06/06/19 Semaglutide [Ozempic] 2.5 units SQ WEEKLY 07/24/19 Review of Systems - Review of Systems Constitutional: reports: No Symptoms Eyes: reports: No Symptoms HENT: reports: No Symptoms Neck: reports: No Symptoms Cardiovascular: reports: No Symptoms Respiratory: reports: No Symptoms Gastrointestinal: reports: No Symptoms Genitourinary: reports: No Symptoms Musculoskeletal: reports: No Symptoms Integumentary: reports: No Symptoms Neurological: reports: No Symptoms Physical Examination Vital Signs: Vital Signs Temperature 98.2 F 08/09/19 07:47 Pulse Rate 88 08/09/19 07:47 Respiratory Rate 18 08/09/19 07:47 Blood Pressure 139/88 08/09/19 07:47 O2 Sat by Pulse Oximetry (%) 98 08/09/19 07:48 Constitutional: Yes: Well Nourished, No Distress, Calm Eyes: Yes: WNL, Conjunctiva Clear, EOM Intact HENT: Yes: WNL, Atraumatic, Normocephalic Neck: Yes: WNL, Supple, Trachea Midline Cardiovascular: Yes: WNL, Regular Rate and Rhythm Respiratory: Yes: WNL, Regular, CTA Bilaterally Gastrointestinal: Yes: WNL, Normal Bowel Sounds Musculoskeletal: Yes: WNL Extremities: Yes: WNL Edema: No Peripheral Pulses WNL: No Integumentary: Yes: WNL Neurological: Yes: WNL, Alert, Oriented ...Motor Strength: WNL Psychiatric: Yes: WNL Problem List - Problems (1) Ulcer of left foot Assessment/Plan: for angiogram , angioplasty today Code(s): L97.529 - NON-PRESSURE CHRONIC ULCER OTH PRT LEFT FOOT W UNSP SEVERITY Qualifiers:
[2019-08-09] MEDS ORDERED: ceFAZolin SODIUM 1 GM VIAL ONE ×2 (09:32→09:49)
[2019-08-09] MEDS ORDERED: LIDOCAINE HCL 1%, 10 MG/ML (20ML VIAL) PNB ONE (10:36)
--- NOTE | 2019-08-09 10:39 | OP ---
Operative Note - Note: Operative Date: 08/09/19 Pre-Operative Diagnosis: left foot ulcer Operation: Aortogram, left lower extremity angiogram Findings: left instent occlusion Post-Operative Diagnosis: Same as Pre-op Surgeon: Guerrero Nuno Anesthesia: Fractional Estimated Blood Loss (mls): 50 Operative Report Dictated: Yes
[2019-08-09] MEDS ORDERED: ONDANSETRON 4 MG/2 ML VIAL IVPUSH PRN (10:40)
[2019-08-09] MEDS ORDERED: CLOPIDOGREL BISULFATE 75 MG TABLET (FP) PO ONE ×2 (10:42→11:04)
[2019-08-09] MEDS ORDERED: ACETAMINOPHEN 325 MG TABLET (FP) ONE (12:00)
[2019-08-09] MEDS ORDERED: oxyCODONE HCL 5 MG TABLET ONE (12:00)
[2019-08-09] MEDS ORDERED: ACETAMINOPHEN 325 MG TABLET (FP) PO ONE (12:06)
[2019-08-09] MEDS ORDERED: oxyCODONE HCL 5 MG TABLET PO ONE (12:06)
[2019-08-09 13:22] VITALS: BP 105/59; PULSE 77; TEMP 94.8
--- NOTE | 2019-08-21 11:50 | OP ---
DATE OF OPERATION: 08/09/2019 PREOPERATIVE DIAGNOSIS: Left plantar foot ulcer. POSTOPERATIVE DIAGNOSIS: Left plantar foot ulcer. PROCEDURE: Aortogram, left lower extremity angiogram. FINDINGS: Left in-stent occlusion. SURGEON: Guerrero Jiang DO ANESTHESIA: Fractional. BLOOD LOSS: 50 mL. INDICATIONS: Patient is a 59-year-old male with a left plantar foot ulcer. Preoperative ultrasound showed that his left SFA stents were occluded. It was decided that he would need an angiogram. Patient came in through ambulatory surgery. Patient was consented for the procedure understanding all risks, benefits, alternatives and was then taken to the operating room. Patient had preoperative medical and cardiology clearance. DESCRIPTION OF PROCEDURE: Once in the operating room, patient was laid on the operating room table in the supine position. The area of the left and right groin were prepped and draped in a sterile surgical manner. We then injected 10 mL of lidocaine 1% over the right common femoral artery. We then took our micropuncture needle, punctured the right common femoral artery. Micropuncture wire was inserted, and a traditional 5-Irish sheath was inserted. We then placed a 0.035 floppy guidewire up into the aorta followed by an Omni Flush catheter. We then shot an aortogram via hand injection showing that the aorta and iliac arteries were without any disease. We then used our wire and went up and over to the left common femoral artery, and our Omni Flush catheter followed. We then shot an angiogram of the left lower extremity showing that the common femoral artery and the profunda were patent, but the SFA stent was occluded from the origin of the SFA down to the above-knee popliteal artery. The below-knee popliteal artery was patent, and patient had 2-vessel runoff into the foot. At this point, we placed our 0.035 stiff guidewire into the profunda artery, and we removed our Omni Flush catheter and placed a 6 x 45 crossover sheath; 5000 units of IV heparin were administered to the patient. We then went ahead and used a Quick-Cross catheter in our 0.035 stiff catheter, and we were able to try to cross the stent that was occluded; however, we were able to get through the proximal 1/3 of the stent, but we were not able to cross the stent. At this point, we decided that no more intervention would be needed that next procedure would be most therapeutic for the patient would be a bypass procedure. At this point, we brought our sheath up and over. StarClose device was successfully deployed in the right common femoral artery. Pressure was held for 5 minutes. After there was no bleeding, the area was wet and dried, and Dermabond was placed. Patient tolerated the procedure with no complication. Patient transferred to the PACU in stable condition where the patient has good dopplerable DP and PT pulse in the left foot. GUERRERO JIANG DO [id number]
== END 2019-08-09 13:10 | disposition home or self-care (01) ==
LOC: JASU-SURG 06:34
PROVIDERS: ATTEND Surgery Vascular Surgery
PROC: B41DYZZ Fluoroscopy of Aorta and Bilateral Lower Extremity Arteries using Other Contrast (ICD-10-PCS; 2019-08-09)
PROC: B41DZZZ Fluoroscopy of Aorta and Bilateral Lower Extremity Arteries (ICD-10-PCS; principal; 2019-08-09 09:00)
DX: E11.621 Type 2 diabetes mellitus with foot ulcer (principal); L97.522 Non-pressure chronic ulcer of other part of left foot with fat layer exposed; Z79.4 Long term (current) 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
CPT/HCPCS: 76000-TC-FY; 82962; 94760; J1644

== ENCOUNTER 2019-09-02 10:20 | Inpatient (IN) | payer OTHER ==
--- NOTE | 2019-09-02 10:51 | PDOC ---
History of Present Illness - General Chief Complaint: Hematuria Stated Complaint: BLOOD SUGAR PROBLEM History Source: Patient Exam Limitations: No Limitations - History of Present Illness Initial Comments: 09/02/19 10:50 Ney Puentes is a 59M with PMH IDDM, HTN, HLD, PAD s/p bilateral forefoot amputations, L foot wound treated with IV vancomycin via PICC seen by Dr. Byrd, prostate CA s/p brachytherapy with Dr. Darin Roberts presenting with new onset hematuria and urinary retention. Patient reports that starting yesterday had bright red blood in his urine without any pain or dysuria. This morning voided with more hematuria, afterwards experienced retention and worsening suprapubic pain. Was been trying to void but unable to do so. Denies constipation but has had some loose stools, no annamaria tochezia or melena. Denies fever, chills, nausea, vomiting, chest pain, SOB, dizziness, DOWNING. Denies history of renal stones. Has history of prostate disease s/p brachytherapy but otherwise has not experienced retention like this before. Of note, has PICC in place for IV vancomycin, has L foot wound that is healing well. Past History - Past Medical History Allergies/Adverse Reactions: Allergies Allergy/AdvReac Type Severity Reaction Status Date / Time piperacillin [From Zosyn] Allergy Swelling Verified 06/04/19 11:33 tazobactam [From Zosyn] Allergy Swelling Verified 06/04/19 11:33 Home Medications: Ambulatory Orders Atorvastatin Calcium 40 mg PO HS 08/10/16 Insulin Degludec [Tresiba Flextouch U-100] 55 units SQ HS 01/01/17 Insulin Aspart (Niacinamide) [Fiasp 100 Unit/ml Vial] 24 unit SQ TID 07/04/18 Pantoprazole Sodium 40 mg PO PRN PRN 10/19/18 Metoprolol Succinate [Toprol XL -] 25 mg PO HS tab.sr.24h 11/17/18 Ramipril 5 mg PO DAILY 06/05/19 Aspirin Coated [Ecotrin -] 81 mg PO DAILY #0 tablet.ec 06/06/19 Clopidogrel Bisulfate [Plavix -] 75 mg PO DAILY #0 tablet 06/06/19 Semaglutide [Ozempic] 2.5 units SQ WEEKLY 07/24/19 Ibuprofen [Motrin -] 600 mg PO TID #21 tablet 08/09/19 Anemia: No Asthma: No Cancer: Yes (Prostate (s/p seed implants July 02, 2016)) Cardiac Disorders: No CVA: No COPD: No CHF: No Dementia: No Diabetes: Yes (IDDM, hist of diabetic foot ulcers) GI Disorders: No Disorders: No HTN: Yes Hypercholesterolemia: Yes Liver Disease: No Seizures: No Thyroid Disease: No - Surgical History Abdominal Surgery: No Appendectomy: No Cardiac Surgery: No Cholecystectomy: No GI Surgery: Yes (PROSTATE RADIATION SEED PLACEMENT) Lung Surgery: No Neurologic Surgery: No Orthopedic Surgery: Yes (left foot metatarsal amp, right foot tma, stent,right LE angiogr) - Immunization History Immunization Up to Date: No - Psycho Social/Smoking Cessation Hx Smoking Status: Yes (quit smoking 9 days ago) Smoking History: Never smoked Have you smoked in the past 12 months: No Number of Cigarettes Smoked Daily: 15 If you are a former smoker, when did you quit?: 2012 'Breaking Loose' booklet given: 04/04/13 Hx Alcohol Use: No Drug/Substance Use Hx: No Substance Use Type: None Hx Substance Use Treatment: No Review of Systems - Review of Systems Able to Perform ROS?: Yes Constitutional: No: Chills, Fever HEENTM: No: Symptoms Reported Respiratory: No: Symptoms reported Cardiac (ROS): No: Symptoms Reported ABD/GI: Yes: Abdominal cramping. No: Blood Streaked Bowels, Nausea, Poor Appetite, Poor Fluid Intake, Vomiting : Yes: Hematuria. No: Burning, Dysuria, Discharge, Frequency, Flank Pain, Incontinence Musculoskeletal: No: Symptoms Reported Integumentary: No: Symptoms Reported Neurological: No: Symptoms reported Endocrine: No: Symptoms Reported Hematologic/Lymphatic: No: Symptoms Reported All Other Systems: Reviewed and Negative *Physical Exam - Vital Signs Last Vital Signs Temp Pulse Resp BP Pulse Ox 98 F 93 H 20 217/102 H 100 09/02/19 10:35 09/02/19 10:35 09/02/19 10:35 09/02/19 10:35 09/02/19 10:35 - Physical Exam General Appearance: Yes: Nourished, Appropriately Dressed, Mild Distress, Other (resting in bed and repeatedly trying to urinate to relieve abdominal pain) HEENT: positive: EOMI, [place], Normal Voice, Symmetrical, Pharynx Normal. negative: Scleral Icterus (R), Scleral Icterus (L), Pharyngeal Erythema, Tonsillar Exudate, Tonsillar Erythema Neck: positive: Trachea midline, Normal Thyroid, Supple. negative: Tender, Rigid, Lymphadenopathy (R), Lymphadenopathy (L) Respiratory/Chest: positive: Lungs Clear, Normal Breath Sounds. negative: Chest Tender, Respiratory Distress, Accessory Muscle Use, Crackles, Rales, Rhonchi, Stridor, Wheezing Cardiovascular: positive: Regular Rhythm, Regular Rate. negative: Murmur Gastrointestinal/Abdominal: positive: Normal Bowel Sounds, Tender (suprapubic), Distended. negative: Organomegaly, Pulsatile Mass, Guarding, Rebound, Hernia Musculoskeletal: positive: Normal Inspection. negative: CVA Tenderness, Vertebral Tenderness Extremity: positive: Normal Capillary Refill, Normal Inspection, Pelvis Stable. negative: Normal Range of Motion, Tender, Swelling, Calf Tenderness Integumentary: positive: Normal Color, Dry, Warm Neurologic: positive: Fully Oriented, Alert, Normal Mood/Affect, Normal Response ED Treatment Course - LABORATORY CBC & Chemistry Diagram: 09/03/19 19:30 09/03/19 06:00 Medical Decision Making - Medical Decision Making 09/02/19 12:40 Presents with history of left foot wound on PICC vancomycin and prostate cancer s/p radiation seeding with new onset hematuria and retention today, concerning for obstructive uropathy such as cystitis vs. prostate issue vs. neurogenic bladder. Bedside US shows 1.2L urine in bladder without any clots, mild hydro. CBI Watters placed 22F in the event CBI needed, >2L dark red urine released with patient relief. VS WNL. - CMP/CBC - UA/UC - 1L IV NS - CXR/ECG for admission Labs notable for: - WBC 17 - Na 129, already giving NS - UA has blood but no evidence of infection - no anemia CXR no acute pathology ECG shows NSR with LAD with HR 87, QRS 94, QTc 469 no TIW or ischemic changes. Discussed case with diego Arana for admission to Med-Surg under his service for urology f/u. Discharge - Discharge Information Problems reviewed: Yes Clinical Impression/Diagnosis: Urinary retention, Cellulitis of left foot Hematuria Qualifiers: Hematuria type: benign essential microscopic Qualified Code(s): R31.1 - Benign essential microscopic hematuria Condition: Stable - Admission Yes - Follow up/Referral - Patient Discharge Instructions - Post Discharge Activity
[2019-09-02 11:18] LABS: BASO % 0.9 % (0-2.0); EOS % 1.1 % (0-4.5); HEMATOCRIT 37.9 % (35.4-49); HEMOGLOBIN 12.7 GM/dL (11.7-16.9); LYMPH % 4.6 % (8-40); MCHC 33.6 g/dl (32.0-35.9); MEAN CELL VOLUME 83.3 fl (80-96); MEAN PLT VOLUME 9.1 fl (7.5-11.1); MONO % 3.3 % (3.8-10.2); NEUT % 90.1 % (42.8-82.8); PLATELET COUNT 265 K/MM3 (134-434); RBC 4.55 M/mm3 (4.00-5.60); RDW 15.3 % (11.9-15.9); WHITE BLOOD COUNT 17.6 K/mm3 (4.0-10.0)
[2019-09-02 11:29] LABS: INR 0.96 (0.83-1.09); PROTHROMBIN TIME (PATIENT) 11.3 SEC (9.7-13.0)
[2019-09-02 11:31] LABS: ACTIVATED PTT 23.3 SECONDS (25.2-36.5)
--- NOTE | 2019-09-02 11:34 | PDOC ---
Attending Attestation - Resident Resident Name: Anand Francois - ED Attending Attestation I have performed the following: I have examined & evaluated the patient, The case was reviewed & discussed with the resident, I agree w/resident's findings & plan - HPI HPI: 09/02/19 11:29 59y/o M multiple medical problems including HTN, IDDM, PVD on asa/plavix, CKD, currently on outpt vanco infusions for chronic foot wounds, prostate ca s/p radiation seeds presents with gross hematuria since yesterday and retention sxs since this morning. no f/c/injuries, reports normal urine stream with gross blood yesterday, awoke this morning with pelvic fullness and inability to urinate. vomited once, + rectal output. - Physicial Exam PE: 09/02/19 11:33 Hypertensive, afebrile, alert lying in stretcher in mild distress secondary to bladder pain No jaundice or pallor, slightly dry mucosa Heart is regular, lungs are clear Abdomen is soft/nondistended, distended bladder palpable to the umbilicus, discomfort to palpation. Pocus ultrasound as noted with urinary retention. Chronic bilateral foot wounds with bandages in place, no evidence of active or progressive cellulitis/infection - Medical Decision Making 09/02/19 11:34 59-year-old male on aspirin and Plavix with baseline CKD currently on vancomycin infusions, history of prostate CA presents with gross hematuria since yesterday and urinary retention today. afebrile, hypertensive. labs, ekg gayle placement, cbi as needed cxr reassess 09/02/19 13:49 leukocytosis 17.6, chem wnl including Cr 1.3. UA with blood but no evidence of infection. cxr clear. unclear source of leukocytosis, legs being adequately treated with vanco. gayle placed with immediate drainage of dark red urine. Clamped after 500cc x2, total >1L. admitted for further electrolyte monitoring, fluid hydration. Heart Score/ECG Review #1 ECG reviewed & interpreted by me at: 09:49 General ECG Interpretation: Sinus Rhythm, Normal Rate (87), Normal Intervals (qtc 469, LVH), No acute ischemic changes
[2019-09-02 11:36] LABS: ALBUMIN 4.2 g/dl (3.4-5.0); ALK PHOS 115 U/L (45-117); ANION GAP 8 MMOL/L (8-16); BILIRUBIN,TOTAL 0.6 mg/dL (0.2-1); BLOOD UREA NITROGEN 21.5 mg/dL (7-18); CALCIUM 9.1 mg/dL (8.5-10.1); CHLORIDE 96 mmol/L (98-107); CO2 24 mmol/L (21-32); CREATININE 1.3 mg/dL (0.55-1.3); GLUCOSE,RANDOM 316 mg/dL (74-106); POTASSIUM 4.4 mmol/L (3.5-5.1); SGOT/AST 25 U/L (15-37); SGPT/ALT 28 U/L (13-61); SODIUM 129 mmol/L (136-145); TOT PROT 8.3 g/dl (6.4-8.2)
[2019-09-02] MEDS ORDERED: SODIUM CHLORIDE 1,000 ML IV ONE (11:47)
[2019-09-02 12:41] LABS: URINE APPEARANCE Cloudy; URINE BILIRUBIN Negative (NEGATIVE); URINE COLOR Brown; URINE GLUCOSE (UA) 2+ (NEGATIVE); URINE KETONE Negative (NEGATIVE); URINE LEUK ESTERASE Negative (NEGATIVE); URINE NITRITE Negative (NEGATIVE); URINE PROTEIN 3+ (NEGATIVE); URINE RBC >100 /hpf (0-4); URINE UROBILINOGEN 0.2 mg/dL (0.2-1.0)
[2019-09-02] MEDS ORDERED: FLU VACCINE QUAD 60 MCG/0.5 ML (MDV 19-20) IM ONE (17:16)
[2019-09-02 17:31] VITALS: BMI 26.3
[2019-09-02] MEDS: PANTOPRAZOLE 40 MG TABLET PO SCH (18:00)
[2019-09-02 19:35] LABS: N-TERMINAL BNP 426.2 pg/ml (5-125)
--- NOTE | 2019-09-02 21:37 | CON.GU ---
Consult Consult Specialty:: urology consult Reason for Consultation:: gross total, painless, hematuria wth clots - History of Present Illness Chief Complaint: prostatism and gross hematuria History of Present Illness: h/o pa prostate. - History Source History Provided By: Patient Limitations to Obtaining History: No Limitations - Past Medical History CLINICAL TECH: Yes: Peripheral Neuropathy Cardio/Vascular: Yes: HTN, Hyperlipdemia, Other (peripheral vascular disease) Gastrointestinal: Yes: GERD Renal/: Yes: Renal Inusuff, Cancer (Prostate Cancer s/p seed implantations) Infectious Disease: Yes: MRSA Musculoskeletal: Yes: Osteoarthritis Endocrine: Yes: Diabetes Mellitus (Insulin dependent) - Past Surgical History Past Surgical History: Yes: Amputation, Stent, Stent - Alcohol/Substance Use Hx Alcohol Use: Yes (Quit 2012) History of Substance Use: reports: Marijuana (in past) - Smoking History Smoking history: Former smoker Have you smoked in the past 12 months: No Aproximately how many cigarettes per day: 15 If you are a former smoker, when did you quit?: 2013 - Social History Usual Living Arrangement: Other ADL: Independent Occupation: Former [employer] History of Recent Travel: No Home Medications - Allergies Allergies/Adverse Reactions: Allergies Allergy/AdvReac Type Severity Reaction Status Date / Time piperacillin [From Zosyn] Allergy Swelling Verified 06/04/19 11:33 tazobactam [From Zosyn] Allergy Swelling Verified 06/04/19 11:33 - Home Medications Home Medications: Ambulatory Orders Atorvastatin Calcium 40 mg PO HS 08/10/16 Insulin Degludec [Tresiba Flextouch U-100] 55 units SQ HS 01/01/17 Insulin Aspart (Niacinamide) [Fiasp 100 Unit/ml Vial] 24 unit SQ TID 07/04/18 Pantoprazole Sodium 40 mg PO PRN PRN 10/19/18 Metoprolol Succinate [Toprol XL -] 25 mg PO HS tab.sr.24h 11/17/18 Ramipril 5 mg PO DAILY 06/05/19 Aspirin Coated [Ecotrin -] 81 mg PO DAILY #0 tablet.ec 06/06/19 Clopidogrel Bisulfate [Plavix -] 75 mg PO DAILY #0 tablet 06/06/19 Semaglutide [Ozempic] 2.5 units SQ WEEKLY 07/24/19 Ibuprofen [Motrin -] 600 mg PO TID #21 tablet 08/09/19 Physical Exam- Vital Signs: Vital Signs Temperature 98.5 F 09/02/19 21:16 Pulse Rate 77 09/02/19 21:16 Respiratory Rate 20 09/02/19 21:16 Blood Pressure 147/79 09/02/19 21:16 O2 Sat by Pulse Oximetry (%) 99 09/02/19 16:49 Labs: CBC, BMP 09/02/19 11:09 09/02/19 11:09
[2019-09-02] MEDS: ATORVASTATIN CA 40 MG TABLET (FP) PO SCH (21:39)
[2019-09-02] MEDS: metoPROLOL SUCCINATE 25 MG TAB.SR.24H (FP) PO SCH (21:40)
[2019-09-02] MEDS: INSULIN (LEVEMIR) 100 UNITS/ML UNITS SQ SCH (21:40)
[2019-09-02] MEDS: INSULIN SLIDING SCALE (NOVOLOG) 1 VIAL SQ SCH (21:40)
[2019-09-02] MEDS ORDERED: ACETAMINOPHEN 325 MG TABLET (FP) PO PRN (21:51)
[2019-09-02] MEDS ORDERED: CIPROFLOXACIN 250 MG TABLET (RESTRICTED TO ID) PO SCH (22:00)
--- NOTE | 2019-09-02 23:00 | CONS ---
DATE OF CONSULTATION: 09/02/2019 Patient is a 59-year-old male admitted via the emergency room with gross total painless hematuria of 3 days' duration. The patient had a 3-way Watters catheter with continuous bladder irrigation. He does have history of prostate cancer and has undergone radiation seed implantation in the past. The patient is a diabetic, hypertensive, dyslipidemic, has peripheral vascular disease. He has bilateral forefoot amputations. He states that he has been passing bright red blood per urethra for the past 48 hours. This morning he was unable to pass urine. He developed suprapubic pain and came into the emergency room. He denies chills or fever. ALLERGIES: ZOSYN. MEDICATIONS: He is on outpatient atorvastatin, insulin, PPI, metoprolol, ramipril, aspirin, Plavix, and Ozempic. He also has a history of poor diabetic control. The patient has blood workup including a CBC, which reveals a white count of 17,600, hemoglobin 12.7 and hematocrit 37.9, platelets were 265. His chemistries revealed a BUN 21.5 and creatinine of 1.3. Random glucose was 361. His liver enzymes were normal. His urine revealed a large amount of blood and negative nitrates. His random vancomycin level was 9.7. His PT as 11.3, INR 0.96. PHYSICAL EXAMINATION: Abdomen: Presently, the patient's abdomen is soft. He has no CVA tenderness. He has no hepatosplenomegaly. General: He appears to be mild distress. Extremities: There were chronic bilateral foot wounds with bandages in place. Genitourinary: The patient states that as of this morning he had an inability to void. Rectal: Examination revealed a 2+, firm, nontender prostate. IMPRESSION: At present, is a 59-year-old male with history of cancer of the prostate, history of brachytherapy. He is on Plavix. He does have history of chronic kidney disease. He is currently on vancomycin infusion. He is afebrile, but is hypertensive. PLAN: We will keep Watters to CBI. We will obtain a renal and pelvic ultrasound. Patient will most likely need a cystoscopy to rule out bladder pathology. This can be done when patient is medically stable and off of his anticoagulation. We will follow with you. CLAY COLEMAN M.D. [id number]
[2019-09-03] MEDS: INSULIN SLIDING SCALE (NOVOLOG) 1 VIAL SQ SCH ×4 (06:09→22:35)
[2019-09-03] MEDS: INSULIN (LEVEMIR) 100 UNITS/ML UNITS SQ SCH ×2 (06:11→22:24)
[2019-09-03 07:32] LABS: BASO % 0.5 % (0-2.0); EOS % 7.9 % (0-4.5); HEMATOCRIT 33.2 % (35.4-49); HEMOGLOBIN 11.4 GM/dL (11.7-16.9); LYMPH % 11.5 % (8-40); MCH 28.5 pg (25.7-33.7); MCHC 34.4 g/dl (32.0-35.9); MEAN CELL VOLUME 82.6 fl (80-96); MEAN PLT VOLUME 8.9 fl (7.5-11.1); MONO % 7.3 % (3.8-10.2); NEUT % 72.8 % (42.8-82.8); PLATELET COUNT 225 K/MM3 (134-434); RBC 4.02 M/mm3 (4.00-5.60); RDW 15.2 % (11.9-15.9)
[2019-09-03 07:44] LABS: INR 1.13 (0.83-1.09); PROTHROMBIN TIME (PATIENT) 13.3 SEC (9.7-13.0)
[2019-09-03 08:21] LABS: ALBUMIN 3.2 g/dl (3.4-5.0); BILIRUBIN,TOTAL 0.6 mg/dL (0.2-1); BLOOD UREA NITROGEN 19.1 mg/dL (7-18); CALCIUM 8.3 mg/dL (8.5-10.1); CREATININE 1.2 mg/dL (0.55-1.3); TOT PROT 6.7 g/dl (6.4-8.2)
--- NOTE | 2019-09-03 09:35 | EKG ---
Test Reason : Blood Pressure : / mmHG Vent. Rate : 087 BPM Atrial Rate : 087 BPM P-R Int : 168 ms QRS Dur : 094 ms QT Int : 390 ms P-R-T Axes : 019 -40 032 degrees QTc Int : 469 ms NORMAL SINUS RHYTHM LEFT AXIS DEVIATION MINIMAL VOLTAGE CRITERIA FOR LVH, MAY BE NORMAL VARIANT ABNORMAL ECG WHEN COMPARED WITH ECG OF 02-APR-2019 16:54, NO SIGNIFICANT CHANGE WAS FOUND Confirmed by Rodney Resendiz ([id number]) on 09/03/2019 9:35:27 AM Referred By: Confirmed By:Rodney Resendiz
[2019-09-03] MEDS ORDERED: PT OWN MED DRAWER 7, Y5N ONE ×2 (10:29→18:44)
[2019-09-03] MEDS: TAMSULOSIN HCL 0.4 MG CAP PO SCH (10:36)
[2019-09-03] MEDS: PANTOPRAZOLE 40 MG TABLET PO SCH (10:36)
[2019-09-03] MEDS: RAMIPRIL 5 MG CAPSULE (FP) PO SCH (10:37)
--- NOTE | 2019-09-03 14:52 | PN ---
Progress Note, Physician Chief Complaint: hematuria History of Present Illness: 59 year old male with pmh prostate ca, iddm, htn, hld, pad presents to the ED with hematuria, consulted by Urology. - Current Medication List Current Medications: Active Medications Acetaminophen (Tylenol -) 650 mg PO Q6H PRN PRN Reason: PAIN Atorvastatin Calcium (Lipitor -) 40 mg PO [facility] Last Admin: 09/02/19 21:39 Dose: 40 mg Documented by: Clopidogrel Bisulfate (Plavix -) 75 mg PO DAILY [facility] Levofloxacin (Levaquin 500 Mg Premixed Ivpb -) 500 mg in 100 mls @ 100 mls/hr IVPB DAILY [facility]; Protocol Last Admin: 09/03/19 10:36 Dose: 100 mls/hr Documented by: Insulin Aspart (Novolog Vial Sliding Scale -) 1 vial SQ ACHS [facility]; Protocol Last Admin: 09/03/19 12:59 Dose: 5 units Documented by: Insulin Detemir (Levemir Vial) 25 units SQ BIDI@0700,2200 [facility] Last Admin: 09/03/19 06:11 Dose: 25 units Documented by: Metoprolol Succinate (Toprol Xl -) 25 mg PO [facility] Last Admin: 09/02/19 21:40 Dose: 25 mg Documented by: Pantoprazole Sodium (Protonix -) 40 mg PO DAILY [facility] Last Admin: 09/03/19 10:36 Dose: 40 mg Documented by: Ramipril (Altace -) 5 mg PO DAILY [facility] Last Admin: 09/03/19 10:37 Dose: 5 mg Documented by: Tamsulosin HCl (Flomax -) 0.4 mg PO DAILY@0830 [facility] Last Admin: 09/03/19 10:36 Dose: 0.4 mg Documented by: - Objective Vital Signs: Vital Signs Temperature 98.2 F 09/03/19 13:27 Pulse Rate 85 09/03/19 13:27 Respiratory Rate 18 09/03/19 13:27 Blood Pressure 133/64 09/03/19 13:27 O2 Sat by Pulse Oximetry (%) 99 09/02/19 21:00 Constitutional: Yes: Well Nourished, No Distress HENT: Yes: Atraumatic, Normocephalic Neck: Yes: Supple Cardiovascular: Yes: Regular Rate and Rhythm Respiratory: Yes: Regular, CTA Bilaterally Gastrointestinal: Yes: Normal Bowel Sounds, Soft Genitourinary: Yes: Gayle Present, Hematuria Extremities: Yes: WNL, Amputation Neurological: Yes: Alert, Oriented Labs: CBC, BMP 09/03/19 06:00 09/03/19 06:00 INR, PTT INR 1.13 (0.83-1.09) H 09/03/19 06:00 Problem List - Problems (1) Hematuria Assessment/Plan: consult appreciated hold home asa/plavix gayle with CBI cystoscopy tues/weds monitor cbc Code(s): R31.9 - HEMATURIA, UNSPECIFIED Qualifiers: Hematuria type: gross Qualified Code(s): R31.0 - Gross hematuria (2) Urinary retention Assessment/Plan: gayle present Code(s): R33.9 - RETENTION OF URINE, UNSPECIFIED (3) Sepsis Assessment/Plan: blood cultures and urine cultures pending IV antbx check renal pelvis us Code(s): A41.9 - SEPSIS, UNSPECIFIED ORGANISM Qualifiers: Sepsis type: sepsis due to unspecified organism Qualified Code(s): A41.9 - Sepsis, unspecified organism (4) Uncontrolled diabetes mellitus Assessment/Plan: cont home meds Code(s): E11.65 - TYPE 2 DIABETES MELLITUS WITH HYPERGLYCEMIA Qualifiers: Diabetes mellitus type: type 2 (5) HTN (hypertension) Assessment/Plan: cont home meds Code(s): I10 - ESSENTIAL (PRIMARY) HYPERTENSION Qualifiers: Hypertension type: essential hypertension Qualified Code(s): I10 - Essential (primary) hypertension (6) Hyperlipidemia Assessment/Plan: cont home meds Code(s): E78.5 - HYPERLIPIDEMIA, UNSPECIFIED Qualifiers: Hyperlipidemia type: unspecified Qualified Code(s): E78.5 - Hyperlipidemia, unspecified
--- NOTE | 2019-09-03 15:43 | PN ---
Progress Note (short form) - Note Progress Note: ID consult dictated imp/reccd painless hematuria- started on Tuesday- worsened tuesday and came to ED now cleared with bladder irrigation plan for cystoscopy urine culture negative can d/c levaquin after cystoscopy if okay with urology ostoemyelitis- on vancomycin 1 gram q12h to be completed 09/09 will resume history of Diabetes PVD- s/p stenting Problem List - Problems (1) Hematuria Code(s): R31.9 - HEMATURIA, UNSPECIFIED Qualifiers: Hematuria type: benign essential microscopic Qualified Code(s): R31.1 - Benign essential microscopic hematuria (2) Osteomyelitis Code(s): M86.9 - OSTEOMYELITIS, UNSPECIFIED Qualifiers: Osteomyelitis type: unspecified type Osteomyelitis location: foot Laterality: right Qualified Code(s): M86.9 - Osteomyelitis, unspecified (3) Diabetes mellitus Code(s): E11.9 - TYPE 2 DIABETES MELLITUS WITHOUT COMPLICATIONS Qualifiers: Diabetes mellitus type: type 1 Diabetes mellitus complication status: with unspecified complications (4) PVD (peripheral vascular disease) Code(s): I73.9 - PERIPHERAL VASCULAR DISEASE, UNSPECIFIED
[2019-09-03] MEDS: CLOPIDOGREL BISULFATE 75 MG TABLET (FP) PO SCH (18:48)
[2019-09-03 21:29] LABS: BASO % 0.7 % (0-2.0); EOS % 8.8 % (0-4.5); HEMATOCRIT 32.8 % (35.4-49); HEMOGLOBIN 11.2 GM/dL (11.7-16.9); LYMPH % 14.7 % (8-40); MCH 28.3 pg (25.7-33.7); MEAN CELL VOLUME 83.4 fl (80-96); MEAN PLT VOLUME 9.3 fl (7.5-11.1); MONO % 7.3 % (3.8-10.2); NEUT % 68.5 % (42.8-82.8); PLATELET COUNT 205 K/MM3 (134-434); RBC 3.94 M/mm3 (4.00-5.60); RDW 15.5 % (11.9-15.9); WHITE BLOOD COUNT 9.6 K/mm3 (4.0-10.0)
--- NOTE | 2019-09-03 21:54 | PN ---
Progress Note (short form) - Note Progress Note: UROLOGY NOTE: 59 y/o M w/ h/o gross total painless hematuria. Pt admitted via emergency room w/ clot retention. A 3 way foleu with CBI was placed. Presently gayle with CBI is pink, no clots, abd soft and nontender. Renal sono normal upper tracts. Plan: Will need cysto/possible TURBT Tuesday am .
[2019-09-03] MEDS: ATORVASTATIN CA 40 MG TABLET (FP) PO SCH (22:00)
[2019-09-03] MEDS: metoPROLOL SUCCINATE 25 MG TAB.SR.24H (FP) PO SCH (22:00)
[2019-09-03] MEDS: VANCOMYCIN 1 GRAM (PRE-DOCKED) 1,000 MG/250 ML BAG IVPB SCH (22:01)
--- NOTE | 2019-09-03 23:55 | CONSULT ---
Consult Consult Specialty:: Endocrine Referred by:: DR.IYAD COURTNEY Reason for Consultation:: diabetes mellitus type 2 - History of Present Illness Chief Complaint: difficulty urinating History of Present Illness: 59y/o M DMT2, HTN, PVD on asa/plavix, CKD, billateral foot amputations,on iv vanco for osteomyelitis of foot,ho prostate ca s/p radiation seeds presenting with gross hematuria and urinary retention .he has elevated sugars despite taking insulin and with frequent novolog sliding scale.he denies nausea, vomiting or diarhea. - Past Medical History VALVE SETTER: Yes: Peripheral Neuropathy Cardio/Vascular: Yes: HTN, Hyperlipdemia, Other (peripheral vascular disease) Gastrointestinal: Yes: GERD Renal/: Yes: Renal Inusuff, Cancer (Prostate Cancer s/p seed implantations) Infectious Disease: Yes: MRSA Musculoskeletal: Yes: Osteoarthritis Endocrine: Yes: Diabetes Mellitus (Insulin dependent) - Past Surgical History Past Surgical History: Yes: Amputation, Stent, Stent - Alcohol/Substance Use Hx Alcohol Use: Yes (Quit 2012) History of Substance Use: reports: Marijuana (in past) - Smoking History Smoking history: Former smoker Have you smoked in the past 12 months: No Aproximately how many cigarettes per day: 15 If you are a former smoker, when did you quit?: 2013 - Social History Usual Living Arrangement: Other ADL: Independent Occupation: Former [employer] History of Recent Travel: No Home Medications - Allergies Allergies/Adverse Reactions: Allergies Allergy/AdvReac Type Severity Reaction Status Date / Time piperacillin [From Zosyn] Allergy Swelling Verified 06/04/19 11:33 tazobactam [From Zosyn] Allergy Swelling Verified 06/04/19 11:33 - Home Medications Home Medications: Ambulatory Orders Atorvastatin Calcium 40 mg PO HS 08/10/16 Insulin Degludec [Tresiba Flextouch U-100] 55 units SQ HS 01/01/17 Insulin Aspart (Niacinamide) [Fiasp 100 Unit/ml Vial] 24 unit SQ TID 07/04/18 Pantoprazole Sodium 40 mg PO PRN PRN 10/19/18 Metoprolol Succinate [Toprol XL -] 25 mg PO HS tab.sr.24h 11/17/18 Ramipril 5 mg PO DAILY 06/05/19 Aspirin Coated [Ecotrin -] 81 mg PO DAILY #0 tablet.ec 06/06/19 Clopidogrel Bisulfate [Plavix -] 75 mg PO DAILY #0 tablet 06/06/19 Semaglutide [Ozempic] 2.5 units SQ WEEKLY 07/24/19 Ibuprofen [Motrin -] 600 mg PO TID #21 tablet 08/09/19 Review of Systems - Review of Systems Constitutional: reports: Lethargy, Weakness Eyes: reports: Blurred Vision HENT: reports: No Symptoms Neck: reports: No Symptoms Cardiovascular: reports: No Symptoms Respiratory: reports: SOB on Exertion Gastrointestinal: reports: Constipation Genitourinary: reports: Frequency Breasts: reports: No Symptoms Reported Musculoskeletal: reports: Muscle Cramps, Muscle Weakness Integumentary: reports: No Symptoms Neurological: reports: Numbness, Unsteady Gait, Weakness Endocrine: reports: Unexplained Weight Loss Physical Exam Vital Signs: Vital Signs Temperature 98.6 F 09/03/19 18:00 Pulse Rate 77 09/03/19 18:00 Respiratory Rate 18 09/03/19 18:00 Blood Pressure 142/70 09/03/19 18:00 O2 Sat by Pulse Oximetry (%) 99 09/02/19 21:00 Constitutional: Yes: Anxious Eyes: Yes: EOM Intact HENT: Yes: Normocephalic Neck: Yes: Trachea Midline Cardiovascular: Yes: Tachycardia Respiratory: Yes: CTA Bilaterally Gastrointestinal: Yes: Normal Bowel Sounds ...Rectal Exam: Yes: Deferred Breast(s): Yes: WNL Musculoskeletal: Yes: Muscle Pain, Muscle Weakness Edema: LLE: 1+, RLE: 1+ Neurological: Yes: Alert, Oriented Labs: CBC, BMP 09/03/19 19:30 09/03/19 06:00 Problem List - Problems (1) Type 2 diabetes mellitus with other diabetic arthropathy Problems reviewed: Yes (2) Cellulitis of left foot Problems reviewed: Yes Code(s): L03.116 - CELLULITIS OF LEFT LOWER LIMB (3) Hematuria Problems reviewed: Yes Code(s): R31.9 - HEMATURIA, UNSPECIFIED Qualifiers: Hematuria type: benign essential microscopic Qualified Code(s): R31.1 - Benign essential microscopic hematuria (4) Urinary retention Code(s): R33.9 - RETENTION OF URINE, UNSPECIFIED (5) Abnormal liver enzymes Code(s): R74.8 - ABNORMAL LEVELS OF OTHER SERUM ENZYMES (6) Abscess of plantar aspect of foot Code(s): L02.619 - CUTANEOUS ABSCESS OF UNSPECIFIED FOOT Assessment/Plan Current Active Problems diabetes mellitus type 2,hyperglycmia diabetic arthropathy Cellulitis of left foot (Acute) Hematuria (Acute) Urinary retention (Acute) hld htn Laboratory Results - last 24 hr 09/03/19 09/03/19 09/03/19 06:00 06:00 06:00 WBC 10.0 RBC 4.02 Hgb 11.4 L Hct 33.2 L MCV 82.6 MCH 28.5 MCHC 34.4 RDW 15.2 Plt Count 225 MPV 8.9 Absolute Neuts (auto) 7.3 Neutrophils % 72.8 Lymphocytes % 11.5 D Monocytes % 7.3 D Eosinophils % 7.9 H D Basophils % 0.5 Nucleated RBC % 0 PT with INR 13.30 H INR 1.13 H PTT (Actin FS) 30.0 Sodium 140 Potassium 4.0 Chloride 107 Carbon Dioxide 25 Anion Gap 8 BUN 19.1 H Creatinine 1.2 Est GFR (CKD-EPI)AfAm 75.19 Est GFR (CKD-EPI)NonAf 64.87 POC Glucometer Random Glucose 219 H Calcium 8.3 L Magnesium 2.0 Total Bilirubin 0.6 AST 14 L ALT 23 Alkaline Phosphatase 95 Total Protein 6.7 Albumin 3.2 L TSH 0.43 D 09/03/19 09/03/19 09/03/19 06:08 12:01 19:30 WBC 9.6 RBC 3.94 L Hgb 11.2 L Hct 32.8 L MCV 83.4 MCH 28.3 MCHC 34.0 RDW 15.5 Plt Count 205 MPV 9.3 Absolute Neuts (auto) 6.6 Neutrophils % 68.5 Lymphocytes % 14.7 D Monocytes % 7.3 Eosinophils % 8.8 H Basophils % 0.7 Nucleated RBC % 0 PT with INR INR PTT (Actin FS) Sodium Potassium Chloride Carbon Dioxide Anion Gap BUN Creatinine Est GFR (CKD-EPI)AfAm Est GFR (CKD-EPI)NonAf POC Glucometer 191 289 Random Glucose Calcium Magnesium Total Bilirubin AST ALT Alkaline Phosphatase Total Protein Albumin TSH 09/03/19 22:04 WBC RBC Hgb Hct MCV MCH MCHC RDW Plt Count MPV Absolute Neuts (auto) Neutrophils % Lymphocytes % Monocytes % Eosinophils % Basophils % Nucleated RBC % PT with INR INR PTT (Actin FS) Sodium Potassium Chloride Carbon Dioxide Anion Gap BUN Creatinine Est GFR (CKD-EPI)AfAm Est GFR (CKD-EPI)NonAf POC Glucometer 287 Random Glucose Calcium Magnesium Total Bilirubin AST ALT Alkaline Phosphatase Total Protein Albumin TSH plan: bgm qid novolog scale levemir 27 units bid novlog scale titrate doses hba1c diet lipid panel marci inhibitor
[2019-09-04] MEDS: INSULIN (LEVEMIR) 100 UNITS/ML UNITS SQ SCH ×2 (06:35→21:02)
[2019-09-04] MEDS: INSULIN SLIDING SCALE (NOVOLOG) 1 VIAL SQ SCH ×4 (06:35→21:03)
[2019-09-04 07:34] LABS: BASO % 0.6 % (0-2.0); EOS % 11.7 % (0-4.5); HEMATOCRIT 34.1 % (35.4-49); HEMOGLOBIN 11.6 GM/dL (11.7-16.9); LYMPH % 12.3 % (8-40); MCH 28.2 pg (25.7-33.7); MEAN CELL VOLUME 83.1 fl (80-96); MEAN PLT VOLUME 9.1 fl (7.5-11.1); MONO % 7.1 % (3.8-10.2); NEUT % 68.3 % (42.8-82.8); PLATELET COUNT 199 K/MM3 (134-434); RDW 15.3 % (11.9-15.9); WHITE BLOOD COUNT 9.7 K/mm3 (4.0-10.0)
[2019-09-04 08:08] LABS: ALBUMIN 3.2 g/dl (3.4-5.0); BILIRUBIN,TOTAL 0.4 mg/dL (0.2-1); BLOOD UREA NITROGEN 20.5 mg/dL (7-18); CALCIUM 8.3 mg/dL (8.5-10.1); CREATININE 1.2 mg/dL (0.55-1.3); POTASSIUM 3.9 mmol/L (3.5-5.1); TOT PROT 6.8 g/dl (6.4-8.2)
[2019-09-04] MEDS ORDERED: PT OWN MED DRAWER 7, Y5N ONE ×2 (09:07→20:41)
[2019-09-04] MEDS: VANCOMYCIN 1 GRAM (PRE-DOCKED) 1,000 MG/250 ML BAG IVPB SCH ×2 (09:50→21:00)
[2019-09-04] MEDS: RAMIPRIL 5 MG CAPSULE (FP) PO SCH (09:51)
[2019-09-04] MEDS: TAMSULOSIN HCL 0.4 MG CAP PO SCH (09:51)
[2019-09-04] MEDS: PANTOPRAZOLE 40 MG TABLET PO SCH (11:44)
--- NOTE | 2019-09-04 15:21 | PN ---
Progress Note, Physician Chief Complaint: hematuria History of Present Illness: 59 year old male with pmh prostate ca, iddm, htn, hld, pad presents to the ED with hematuria, consulted by Urology. - Current Medication List Current Medications: Active Medications Acetaminophen (Tylenol -) 650 mg PO Q6H PRN PRN Reason: PAIN Atorvastatin Calcium (Lipitor -) 40 mg PO [facility] Last Admin: 09/03/19 22:00 Dose: 40 mg Documented by: Clopidogrel Bisulfate (Plavix -) 75 mg PO DAILY [facility] Last Admin: 09/03/19 18:48 Dose: Not Given Documented by: Levofloxacin (Levaquin 500 Mg Premixed Ivpb -) 500 mg in 100 mls @ 100 mls/hr IVPB DAILY [facility]; Protocol Last Admin: 09/04/19 11:44 Dose: 100 mls/hr Documented by: Vancomycin HCl (Vancomycin (Pre-Docked)) 1,000 mg in 250 mls @ 166.667 mls/hr IVPB 0800,2000 [facility]; Protocol Last Admin: 09/04/19 09:50 Dose: 166.667 mls/hr Documented by: Insulin Aspart (Novolog Vial Sliding Scale -) 1 vial SQ ACHS [facility]; Protocol Last Admin: 09/04/19 12:05 Dose: 3 units Documented by: Insulin Detemir (Levemir Vial) 27 units SQ BIDI@0700,2200 [facility] Last Admin: 09/04/19 06:35 Dose: 27 units Documented by: Metoprolol Succinate (Toprol Xl -) 25 mg PO [facility] Last Admin: 09/03/19 22:00 Dose: 25 mg Documented by: Pantoprazole Sodium (Protonix -) 40 mg PO DAILY [facility] Last Admin: 09/04/19 11:44 Dose: 40 mg Documented by: Ramipril (Altace -) 5 mg PO DAILY [facility] Last Admin: 09/04/19 09:51 Dose: 5 mg Documented by: Tamsulosin HCl (Flomax -) 0.4 mg PO DAILY@0830 [facility] Last Admin: 09/04/19 09:51 Dose: 0.4 mg Documented by: - Objective Vital Signs: Vital Signs Temperature 98.2 F 09/04/19 10:00 Pulse Rate 84 09/04/19 10:00 Respiratory Rate 16 09/04/19 10:00 Blood Pressure 121/66 09/04/19 10:00 O2 Sat by Pulse Oximetry (%) 99 09/04/19 09:00 Constitutional: Yes: Well Nourished, No Distress HENT: Yes: Atraumatic, Normocephalic Neck: Yes: Supple Cardiovascular: Yes: Regular Rate and Rhythm Respiratory: Yes: Regular, CTA Bilaterally Gastrointestinal: Yes: Normal Bowel Sounds, Soft Genitourinary: Yes: Gayle Present, Hematuria Extremities: Yes: Amputation Neurological: Yes: Alert, Oriented Psychiatric: Yes: Alert Labs: CBC, BMP 09/04/19 06:45 09/04/19 06:45 INR, PTT INR 1.13 (0.83-1.09) H 09/03/19 06:00 Problem List - Problems (1) Hematuria Assessment/Plan: consult appreciated hold home asa/plavix gayle with CBI cystoscopy weds, npo after midnight monitor cbc Code(s): R31.9 - HEMATURIA, UNSPECIFIED Qualifiers: Hematuria type: benign essential microscopic Qualified Code(s): R31.1 - Benign essential microscopic hematuria (2) Urinary retention Assessment/Plan: gayle present Code(s): R33.9 - RETENTION OF URINE, UNSPECIFIED (3) Sepsis Assessment/Plan: blood cultures and urine cultures pending IV antbx check renal pelvis us- noted ID eval continue vanco for left foot osteo Code(s): A41.9 - SEPSIS, UNSPECIFIED ORGANISM Qualifiers: Sepsis type: sepsis due to unspecified organism Qualified Code(s): A41.9 - Sepsis, unspecified organism (4) Uncontrolled diabetes mellitus Assessment/Plan: cont home meds endocrine following 24 u TID w meals asparte 55 u tresiba hs Code(s): E11.65 - TYPE 2 DIABETES MELLITUS WITH HYPERGLYCEMIA Qualifiers: Diabetes mellitus type: type 2 (5) HTN (hypertension) Assessment/Plan: cont home meds Code(s): I10 - ESSENTIAL (PRIMARY) HYPERTENSION Qualifiers: Hypertension type: essential hypertension Qualified Code(s): I10 - Essential (primary) hypertension (6) Hyperlipidemia Assessment/Plan: cont home meds Code(s): E78.5 - HYPERLIPIDEMIA, UNSPECIFIED Qualifiers: Hyperlipidemia type: unspecified Qualified Code(s): E78.5 - Hyperlipidemia, unspecified
--- NOTE | 2019-09-04 19:37 | CONS ---
DATE OF CONSULTATION: DATE OF DICTATION: 09/04/2019 INFECTIOUS DISEASE CONSULTATION HISTORY OF PRESENT ILLNESS: This is a 59-year-old man who I know from multiple prior foot infections. He has a history of peripheral neuropathy, he has had multiple episodes of osteomyelitis and chronic foot infections including MRSA, osteomyelitis in the past. He was recently started on vancomycin on August 02 for recurrent osteomyelitis of the left foot. He is currently on vancomycin 1 g q.12 and the ulcer is closing nicely. He developed painless hematuria on Tuesday, came to the ER on Tuesday, was admitted. He was started on Levaquin. He is receiving bladder irrigation and the hematuria has resolved. He denies any fevers or chills. He has no abdominal cramps. He otherwise feels well. PAST MEDICAL HISTORY: Notable for the foot infections. He has a history of osteomyelitis of the toes. He is status post bilateral transmetatarsal amputations. He has had a recent appendectomy and hernia repair. MEDICATION: His medications at home include vancomycin, ramipril, pantoprazole, metoprolol, insulin, Plavix, atorvastatin, and aspirin. Of note, he has a history of diabetes as well and peripheral neuropathy, as well as hypertension, hyperlipidemia, peripheral vascular disease, GERD, renal insufficiency, prostate cancer status post seed implants. He has had several stents as well with Dr. Nuno for his peripheral vascular disease. Most recently had a perforated appendix in March 2019 and had an interval laparoscopic appendectomy on June 05 with umbilical hernia repair. ALLERGIES: He is allergic to PIPERACILLIN/TAZOBACTAM but tolerates cephalosporins. SOCIAL HISTORY: He is a former smoker. He quit in 2012. He lives alone. He is a former [employer]. No history of any recent travel. REVIEW OF SYSTEMS: He has no fevers or chills. He has no cough, nausea, vomiting, diarrhea, or dysuria. PHYSICAL EXAMINATION: General: He is a pleasant man in no acute distress. Vital Signs: Stable. He has been afebrile since admission. HEENT: Normocephalic. Eyes are anicteric. Neck: Supple. Lungs: Clear to auscultation. Heart: Regular rate and rhythm. Abdomen: Soft, nontender. Extremities: Notable for a very small ulcer on his right foot about 0.5 cm; he says it was originally 3 or 4 cm and is closing nicely. There is no purulence or drainage. There is surrounding erythema. He has a Watters in place for bladder irrigation, and the urine is clear. LABORATORY: His labs are unremarkable. Urine and blood cultures are negative. IMPRESSION: 1. In summary, this is a 59-year-old man with diabetes, recurrent episodes of osteomyelitis of his feet who is now on vancomycin started in July to be completed September 09. He is doing well, would resume his vancomycin at 1 g q.12. 2. Painless hematuria. He is to have cysto with urology on Tuesday. He has been started on Levaquin. Based on the cysto findings, would consider discontinuing the Levaquin after his surgery is completed. 3. History of diabetes. 4. Peripheral vascular disease. ASIA CHOUDHARY M.D. [id number] MTDD
[2019-09-04] MEDS: metoPROLOL SUCCINATE 25 MG TAB.SR.24H (FP) PO SCH (21:02)
[2019-09-04] MEDS: ATORVASTATIN CA 40 MG TABLET (FP) PO SCH (21:02)
[2019-09-05] MEDS: INSULIN SLIDING SCALE (NOVOLOG) 1 VIAL SQ SCH ×4 (06:32→21:27)
[2019-09-05] MEDS: INSULIN (LEVEMIR) 100 UNITS/ML UNITS SQ SCH ×2 (06:32→21:27)
[2019-09-05] MEDS ORDERED: INSULIN (NOVOLOG) ASPART 100 UNITS/ML 10ML VIAL ONE ×2 (06:44→21:12)
[2019-09-05 08:03] LABS: BASO % 0.9 % (0-2.0); EOS % 13.8 % (0-4.5); HEMATOCRIT 35.3 % (35.4-49); HEMOGLOBIN 12.1 GM/dL (11.7-16.9); LYMPH % 14.3 % (8-40); MCH 28.2 pg (25.7-33.7); MCHC 34.3 g/dl (32.0-35.9); MEAN CELL VOLUME 82.1 fl (80-96); MEAN PLT VOLUME 9.2 fl (7.5-11.1); MONO % 6.3 % (3.8-10.2); NEUT % 64.7 % (42.8-82.8); PLATELET COUNT 207 K/MM3 (134-434); RBC 4.29 M/mm3 (4.00-5.60); WHITE BLOOD COUNT 8.6 K/mm3 (4.0-10.0)
[2019-09-05 08:23] LABS: ALBUMIN 3.2 g/dl (3.4-5.0); BILIRUBIN,TOTAL 0.7 mg/dL (0.2-1); BLOOD UREA NITROGEN 22.1 mg/dL (7-18); CREATININE 1.2 mg/dL (0.55-1.3); TOT PROT 6.8 g/dl (6.4-8.2)
[2019-09-05] MEDS: VANCOMYCIN 1 GRAM (PRE-DOCKED) 1,000 MG/250 ML BAG IVPB SCH ×2 (09:33→21:26)
[2019-09-05] MEDS ORDERED: PT OWN MED DRAWER 7, Y5N ONE (09:48)
[2019-09-05] MEDS: TAMSULOSIN HCL 0.4 MG CAP PO SCH (09:50)
[2019-09-05] MEDS: RAMIPRIL 5 MG CAPSULE (FP) PO SCH (09:50)
[2019-09-05] MEDS: PANTOPRAZOLE 40 MG TABLET PO SCH (09:50)
--- NOTE | 2019-09-05 10:54 | PN ---
Progress Note, Physician Chief Complaint: Hematuria History of Present Illness: NAD Going for cystoscopy today Urine clear, gayle to CBI Denies any pain or discomfort - Current Medication List Current Medications: Active Medications Acetaminophen (Tylenol -) 650 mg PO Q6H PRN PRN Reason: PAIN Atorvastatin Calcium (Lipitor -) 40 mg PO [facility] Last Admin: 09/04/19 21:02 Dose: 40 mg Documented by: Clopidogrel Bisulfate (Plavix -) 75 mg PO DAILY [facility] Last Admin: 09/03/19 18:48 Dose: Not Given Documented by: Levofloxacin (Levaquin 500 Mg Premixed Ivpb -) 500 mg in 100 mls @ 100 mls/hr IVPB DAILY [facility]; Protocol Last Admin: 09/05/19 09:50 Dose: 100 mls/hr Documented by: Vancomycin HCl (Vancomycin (Pre-Docked)) 1,000 mg in 250 mls @ 166.667 mls/hr IVPB 0800,2000 [facility]; Protocol Last Admin: 09/05/19 09:33 Dose: 166.667 mls/hr Documented by: Insulin Aspart (Novolog Vial Sliding Scale -) 1 vial SQ ACHS [facility]; Protocol Last Admin: 09/05/19 06:32 Dose: Not Given Documented by: Insulin Detemir (Levemir Vial) 27 units SQ BIDI@0700,2200 [facility] Last Admin: 09/05/19 06:32 Dose: Not Given Documented by: Metoprolol Succinate (Toprol Xl -) 25 mg PO [facility] Last Admin: 09/04/19 21:02 Dose: 25 mg Documented by: Pantoprazole Sodium (Protonix -) 40 mg PO DAILY [facility] Last Admin: 09/05/19 09:50 Dose: 40 mg Documented by: Ramipril (Altace -) 5 mg PO DAILY [facility] Last Admin: 09/05/19 09:50 Dose: 5 mg Documented by: Tamsulosin HCl (Flomax -) 0.4 mg PO DAILY@0830 [facility] Last Admin: 09/05/19 09:50 Dose: 0.4 mg Documented by: - Objective Vital Signs: Vital Signs Temperature 98 F 09/05/19 09:54 Pulse Rate 75 09/05/19 09:54 Respiratory Rate 18 09/05/19 09:54 Blood Pressure 156/81 09/05/19 09:54 O2 Sat by Pulse Oximetry (%) 99 03/11/20 08:03 Constitutional: Yes: Well Nourished, No Distress, Calm Cardiovascular: Yes: Regular Rate and Rhythm Respiratory: Yes: Regular Gastrointestinal: Yes: Normal Bowel Sounds, Soft Genitourinary: Yes: Gayle Present Musculoskeletal: Yes: WNL Extremities: Yes: WNL Edema: No Peripheral Pulses WNL: Yes Neurological: Yes: Alert, Oriented Psychiatric: Yes: Alert, Oriented Labs: CBC, BMP 09/05/19 06:55 09/05/19 06:55 INR, PTT INR 1.13 (0.83-1.09) H 09/03/19 06:00 Assessment/Plan (1) Hematuria Assessment/Plan: - consult appreciated -Asa/plavix on hold for cystoscopy today -Gayle with CBI -Monitor H/H -UC negative Code(s): R31.9 - HEMATURIA, UNSPECIFIED Qualifiers: Hematuria type: benign essential microscopic Qualified Code(s): R31.1 - Benign essential microscopic hematuria (2) Urinary retention Assessment/Plan: -Gayle present -Continue Tamsulosin Code(s): R33.9 - RETENTION OF URINE, UNSPECIFIED (3) Sepsis Assessment/Plan: -ultures: Microbiology 09/02/19 18:10 Blood - Peripheral Venous Blood Culture - Preliminary NO GROWTH OBTAINED AFTER 48 HOURS, INCUBATION TO CONTINUE FOR 3 DAYS. 09/02/19 18:05 Blood - Peripheral Venous Blood Culture - Preliminary NO GROWTH OBTAINED AFTER 48 HOURS, INCUBATION TO CONTINUE FOR 3 DAYS. 09/02/19 12:20 Urine - Urine Gayle Urine Culture - Final NO GROWTH OBTAINED -IV abx -Renal U/S negative -Bladder U/S-possible mass or blood clot- will identify via cystoscopy today -ID eval appreciated -Continue vanco for left foot osteo Code(s): A41.9 - SEPSIS, UNSPECIFIED ORGANISM Qualifiers: Sepsis type: sepsis due to unspecified organism Qualified Code(s): A41.9 - Sepsis, unspecified organism (4) Uncontrolled diabetes mellitus Assessment/Plan: -A1c at 7.1 -Levemir 27 U BID -ISS -BGM AC HS -Diabetic sodium diet-Endocrinology on board Code(s): E11.65 - TYPE 2 DIABETES MELLITUS WITH HYPERGLYCEMIA Qualifiers: Diabetes mellitus type: type 2
[2019-09-05] MEDS ORDERED: PROPOFOL 20 ML ONE (11:47)
[2019-09-05] MEDS ORDERED: MIDAZOLAM HCL 2 MG/2 ML SINGLE DOSE VIAL ONE ×2 (11:47→15:02)
[2019-09-05] MEDS ORDERED: ceFAZolin SODIUM 1 GM VIAL ONE (15:41)
[2019-09-05] MEDS ORDERED: ceFAZolin SODIUM 1 GM VIAL IVPB ONE (15:51)
[2019-09-05] MEDS ORDERED: oxyCODONE HCL 5 MG TABLET PO PRN ×2 (16:12)
[2019-09-05] MEDS ORDERED: ONDANSETRON 4 MG/2 ML VIAL IVPUSH PRN (16:12)
--- NOTE | 2019-09-05 16:29 | OP ---
Operative Note - Note: Operative Date: 09/05/19 Pre-Operative Diagnosis: bph with bleeding Operation: cysto, evacuation of clots,turp/tuvp Findings: trilobar hypertrophed bleeding prostate gland Post-Operative Diagnosis: Same as Pre-op Surgeon: Darin Roberts Anesthesia: General Specimens Removed: prostate chips, clots Estimated Blood Loss (mls): 50 Drains & Tubes with Location: 24f 30cc [address] gayle Drains, Volume Out (mls): 0 Blood Volume Replaced (mls): 0 Fluid Volume Replaced (mls): 0 Operative Report Dictated: Yes
[2019-09-05] MEDS: metoPROLOL SUCCINATE 25 MG TAB.SR.24H (FP) PO SCH (21:28)
[2019-09-05] MEDS: ATORVASTATIN CA 40 MG TABLET (FP) PO SCH (21:28)
[2019-09-05] MEDS: LACTATED RINGERS SOLUTION 1,000 ML IV SCH (22:00)
[2019-09-06] MEDS: LACTATED RINGERS SOLUTION 1,000 ML IV SCH (05:35)
[2019-09-06] MEDS ORDERED: INSULIN (NOVOLOG) ASPART 100 UNITS/ML 10ML VIAL ONE ×3 (05:59→13:23)
[2019-09-06] MEDS: INSULIN SLIDING SCALE (NOVOLOG) 1 VIAL SQ SCH ×4 (06:00→21:38)
[2019-09-06] MEDS: INSULIN (LEVEMIR) 100 UNITS/ML UNITS SQ SCH ×2 (06:00→21:33)
[2019-09-06] MEDS ORDERED: INSULIN (LEVEMIR) 100 UNITS/ML UNITS SQ ONE (06:41)
--- NOTE | 2019-09-06 08:20 | OP ---
DATE OF OPERATION: 09/04/2019 PREOPERATIVE DIAGNOSES: Gross hematuria, clot retention. POSTOPERATIVE DIAGNOSIS: Hemorrhagic prostatic gland. OPERATIVE PROCEDURE: Cystourethroscopy, evacuation of clots, transurethral resection and transurethral vaporization of prostate. ANESTHESIA: General. DESCRIPTION OF PROCEDURE: Under above-stated anesthesia patient was prepped and draped in the usual sterile manner. He was placed in the dorsal lithotomy position. Cystoscopy under direct vision revealed a normal anterior urethra. Prostatic urethra revealed trilobar hypertrophy with hemorrhagic mucosa that was actively bleeding. The bladder was entered. Old clots were seen. They were evacuated with an Ellik evacuator. Inspection of the ureteral orifices revealed normal efflux of clear urine. The bladder revealed grade 2 trabeculation. No lesions were noted. No calculi were seen. The only bleeding source was the prostate. Therefore, a resectoscope was inserted. The prostate was resected in the usual fashion. An Ellik evacuator was used to evacuate the prostate chips. Hemostasis was secured with electrocoagulation. Excess tissue was vaporized using the bipolar button. No active bleeding was noted. The bladder was emptied. The scope was removed. A 24-Polish 3-way 30-mL Watters was inserted. This was connected to irrigation and drainage. The patient tolerated the procedure well. He returned to the recovery room in good condition. Jameson [id number]
[2019-09-06] MEDS ORDERED: PT OWN MED DRAWER 7, Y5N ONE (09:17)
[2019-09-06] MEDS: PANTOPRAZOLE 40 MG TABLET PO SCH (09:37)
[2019-09-06] MEDS: TAMSULOSIN HCL 0.4 MG CAP PO SCH (09:38)
[2019-09-06] MEDS: VANCOMYCIN 1 GRAM (PRE-DOCKED) 1,000 MG/250 ML BAG IVPB SCH ×2 (09:38→20:14)
[2019-09-06] MEDS: RAMIPRIL 5 MG CAPSULE (FP) PO SCH (09:42)
--- NOTE | 2019-09-06 10:21 | PN ---
Progress Note, Physician - Current Medication List Current Medications: Active Medications Acetaminophen (Tylenol -) 650 mg PO Q6H PRN PRN Reason: PAIN Atorvastatin Calcium (Lipitor -) 40 mg PO [facility] Last Admin: 09/05/19 21:28 Dose: 40 mg Documented by: Clopidogrel Bisulfate (Plavix -) 75 mg PO DAILY [facility] Last Admin: 09/03/19 18:48 Dose: Not Given Documented by: Levofloxacin (Levaquin 500 Mg Premixed Ivpb -) 500 mg in 100 mls @ 100 mls/hr IVPB DAILY [facility]; Protocol Last Admin: 09/06/19 09:29 Dose: 100 mls/hr Documented by: Vancomycin HCl (Vancomycin (Pre-Docked)) 1,000 mg in 250 mls @ 166.667 mls/hr IVPB 0800,2000 [facility]; Protocol Last Admin: 09/06/19 09:38 Dose: 166.667 mls/hr Documented by: Lactated Ringer's (Lactated Ringers Solution) 1,000 mls @ 125 mls/hr IV ASDIR [facility] Last Admin: 09/06/19 05:35 Dose: 125 mls/hr Documented by: Insulin Aspart (Novolog Vial Sliding Scale -) 1 vial SQ ACHS [facility]; Protocol Last Admin: 09/06/19 06:00 Dose: 7 units Documented by: Insulin Detemir (Levemir Vial) 27 units SQ BIDI@0700,2200 [facility] Last Admin: 09/06/19 06:00 Dose: 27 units Documented by: Metoprolol Succinate (Toprol Xl -) 25 mg PO [facility] Last Admin: 09/05/19 21:28 Dose: 25 mg Documented by: Ondansetron HCl (Zofran Injection) 4 mg IVPUSH Q6H PRN PRN Reason: NAUSEA AND/OR VOMITING Oxycodone HCl (Roxicodone -) 5 mg PO Q4H PRN PRN Reason: PAIN LEVEL 1-5 Stop: 09/06/19 16:11 Oxycodone HCl (Roxicodone -) 10 mg PO Q4H PRN PRN Reason: PAIN LEVEL 6-10 Stop: 09/06/19 16:11 Pantoprazole Sodium (Protonix -) 40 mg PO DAILY [facility] Last Admin: 09/06/19 09:37 Dose: 40 mg Documented by: Ramipril (Altace -) 5 mg PO DAILY [facility] Last Admin: 09/06/19 09:42 Dose: 5 mg Documented by: Tamsulosin HCl (Flomax -) 0.4 mg PO DAILY@0830 [facility] Last Admin: 09/06/19 09:38 Dose: 0.4 mg Documented by: - Objective Vital Signs: Vital Signs Temperature 98.8 F 09/06/19 09:58 Pulse Rate 77 09/06/19 09:58 Respiratory Rate 18 09/06/19 09:58 Blood Pressure 155/79 09/06/19 09:58 O2 Sat by Pulse Oximetry (%) 94 L 09/06/19 09:00 Cardiovascular: Yes: S1, S2 Respiratory: Yes: Regular, CTA Bilaterally Gastrointestinal: Yes: Normal Bowel Sounds, Soft Labs: CBC, BMP 09/05/19 06:55 09/05/19 06:55 INR, PTT INR 1.13 (0.83-1.09) H 09/03/19 06:00 Assessment/Plan - Problems (1) Hematuria Assessment/Plan: consult appreciated hold home asa/plavix gayle with CBI cystoscopy weds, npo after midnight monitor cbc Code(s): R31.9 - HEMATURIA, UNSPECIFIED Qualifiers: Hematuria type: benign essential microscopic Qualified Code(s): R31.1 - Benign essential microscopic hematuria (2) Urinary retention Assessment/Plan: gayle present Operative Date: 09/05/19 Pre-Operative Diagnosis: bph with bleeding Operation: cysto, evacuation of clots,turp/tuvp Findings: trilobar hypertrophed bleeding prostate gland Post-Operative Diagnosis: Same as Pre-op Surgeon: Darin Roberts Anesthesia: General Specimens Removed: prostate chips, clots Estimated Blood Loss (mls): 50 Code(s): R33.9 - RETENTION OF URINE, UNSPECIFIED (3) Sepsis Assessment/Plan: blood cultures and urine cultures pending IV antbx check renal pelvis us- noted ID eval continue vanco for left foot osteo Code(s): A41.9 - SEPSIS, UNSPECIFIED ORGANISM Qualifiers: Sepsis type: sepsis due to unspecified organism Qualified Code(s): A41.9 - Sepsis, unspecified organism (4) Uncontrolled diabetes mellitus Assessment/Plan: cont home meds endocrine following 24 u TID w meals asparte 55 u tresiba hs Code(s): E11.65 - TYPE 2 DIABETES MELLITUS WITH HYPERGLYCEMIA Qualifiers: Diabetes mellitus type: type 2 (5) HTN (hypertension) Assessment/Plan: cont home meds Code(s): I10 - ESSENTIAL (PRIMARY) HYPERTENSION Qualifiers: Hypertension type: essential hypertension Qualified Code(s): I10 - Essential (primary) hypertension (6) Hyperlipidemia Assessment/Plan: cont home meds Code(s): E78.5 - HYPERLIPIDEMIA, UNSPECIFIED Qualifiers: Hyperlipidemia type: unspecified Qualified Code(s): E78.5 - Hyperlipidemia, unspecified
--- NOTE | 2019-09-06 10:26 | PN ---
Progress Note (short form) - Note Progress Note: Anesthesia POD#1 S/P Cysto Turp under GA VSS,no N/V, no pain, eating well. Lisset Brenner MD.
--- NOTE | 2019-09-06 18:14 | PN ---
Progress Note (short form) - Note Progress Note: feels well s/p cystoscoopy yesterday Vital Signs Period Temp Pulse Resp BP Sys/[place] Pulse Ox Last 24 Hr 97.6 F-98.8 F 73-84 18-20 136-159/74-84 94-95 cor-rrr llungs clear abd soft,nt ext no edema dressing intact CBC, BMP 09/05/19 06:55 09/05/19 06:55 Microbiology 09/02/19 18:10 Blood - Peripheral Venous Blood Culture - Preliminary NO GROWTH OBTAINED AFTER 72 HOURS, INCUBATION TO CONTINUE FOR 2 DAYS. 09/02/19 18:05 Blood - Peripheral Venous Blood Culture - Preliminary NO GROWTH OBTAINED AFTER 72 HOURS, INCUBATION TO CONTINUE FOR 2 DAYS. 09/02/19 12:20 Urine - Urine Watters Urine Culture - Final NO GROWTH OBTAINED imp/reccd s/p cystoscopy with TURP- on levaquin per urology, culture negative- ?d/c soon osteomyelitis- on vancomycin 1 gram q12h to be completed 09/09 check vanco trough before next dose
[2019-09-06] MEDS: metoPROLOL SUCCINATE 25 MG TAB.SR.24H (FP) PO SCH (21:33)
[2019-09-06] MEDS: ATORVASTATIN CA 40 MG TABLET (FP) PO SCH (21:33)
--- NOTE | 2019-09-06 23:08 | PN ---
Progress Note (short form) - Note Progress Note: has elevated sugars despite limited food intake Current Active Problems Cellulitis of left foot (Acute) Hematuria (Acute) Type 2 diabetes mellitus with other diabetic arthropathy (Acute) Urinary retention (Acute) Laboratory Results - last 24 hr 09/06/19 09/06/19 09/06/19 05:33 12:53 20:45 POC Glucometer 277 380 343 plan: Current Medications Generic Name Dose Route Start Last Admin Trade Name Freq PRN Reason Stop Dose Admin Acetaminophen 650 mg 09/02/19 21:51 Tylenol - PO Q6H PRN PAIN Atorvastatin Calcium 40 mg 09/02/19 22:00 09/06/19 21:33 Lipitor - PO 40 mg HS LISBETH Administration Clopidogrel Bisulfate 75 mg 09/03/19 10:00 09/03/19 18:48 Plavix - PO Not Given DAILY LISBETH Levofloxacin 500 mg in 100 mls @ 100 mls/hr 09/02/19 17:00 09/06/19 09:29 Levaquin 500 Mg Premixed Ivpb - IVPB 100 mls/hr DAILY LISBETH Administration Protocol Vancomycin HCl 1,000 mg in 250 mls @ 166.667 mls/hr 09/03/19 20:00 09/06/19 20:14 Vancomycin (Pre-Docked) IVPB 166.667 mls/hr 08,1999 [facility] Administration Protocol Lactated Ringer's 1,000 mls @ 125 mls/hr 09/05/19 16:15 09/06/19 05:35 Lactated Ringers Solution IV 125 mls/hr ASDIR LISBETH Administration Insulin Aspart 1 vial 09/06/19 23:06 Novolog Vial Sliding Scale - SQ ACHS [facility] Protocol Insulin Detemir 30 units 09/06/19 23:06 Levemir Vial SQ BIDI@0700,2200 LISBETH Metoprolol Succinate 25 mg 09/02/19 22:00 09/06/19 21:33 Toprol Xl - PO 25 mg HS LISBETH Administration Ondansetron HCl 4 mg 09/05/19 16:12 Zofran Injection IVPUSH Q6H PRN NAUSEA AND/OR VOMITING Pantoprazole Sodium 40 mg 09/02/19 17:00 09/06/19 09:37 Protonix - PO 40 mg DAILY LISBETH Administration Ramipril 5 mg 09/03/19 10:00 09/06/19 09:42 Altace - PO 5 mg DAILY LISBETH Administration Tamsulosin HCl 0.4 mg 09/03/19 08:30 09/06/19 09:38 Flomax - PO 0.4 mg DAILY@0830 LISBETH Administration Problem List - Problems (1) Type 2 diabetes mellitus with other diabetic arthropathy (2) Cellulitis of left foot Code(s): L03.116 - CELLULITIS OF LEFT LOWER LIMB (3) Hematuria Code(s): R31.9 - HEMATURIA, UNSPECIFIED Qualifiers: Hematuria type: benign essential microscopic Qualified Code(s): R31.1 - Benign essential microscopic hematuria (4) Urinary retention Code(s): R33.9 - RETENTION OF URINE, UNSPECIFIED (5) Abnormal liver enzymes Code(s): R74.8 - ABNORMAL LEVELS OF OTHER SERUM ENZYMES (6) Abscess of plantar aspect of foot Code(s): L02.619 - CUTANEOUS ABSCESS OF UNSPECIFIED FOOT
[2019-09-07] MEDS: INSULIN SLIDING SCALE (NOVOLOG) 1 VIAL SQ SCH ×3 (06:33→17:37)
[2019-09-07] MEDS ORDERED: INSULIN (LEVEMIR) 100 UNITS/ML UNITS SQ ONE (06:54)
[2019-09-07] MEDS ORDERED: INSULIN (NOVOLOG) ASPART 100 UNITS/ML 10ML VIAL ONE ×2 (06:54→11:48)
[2019-09-07] MEDS ORDERED: INSULIN (LEVEMIR) 100 UNITS/ML UNITS SQ SCH (07:00)
[2019-09-07] MEDS: VANCOMYCIN 1 GRAM (PRE-DOCKED) 1,000 MG/250 ML BAG IVPB SCH (08:44)
[2019-09-07] MEDS: TAMSULOSIN HCL 0.4 MG CAP PO SCH (08:44)
--- NOTE | 2019-09-07 10:28 | PN ---
Progress Note, Physician Chief Complaint: Hematuria History of Present Illness: NAD S/P cystoscopy Urine clear, gayle Denies any pain or discomfort - Current Medication List Current Medications: Active Medications Acetaminophen (Tylenol -) 650 mg PO Q6H PRN PRN Reason: PAIN Atorvastatin Calcium (Lipitor -) [address] [facility] Last Admin: 09/06/19 21:33 Dose: 40 mg Documented by: Clopidogrel Bisulfate (Plavix -) 75 mg PO DAILY [facility] Last Admin: 09/03/19 18:48 Dose: Not Given Documented by: Levofloxacin (Levaquin 500 Mg Premixed Ivpb -) 500 mg in 100 mls @ 100 mls/hr IVPB DAILY [facility]; Protocol Last Admin: 09/06/19 09:29 Dose: 100 mls/hr Documented by: Vancomycin HCl (Vancomycin (Pre-Docked)) 1,000 mg in 250 mls @ 166.667 mls/hr IVPB 0800,2000 [facility]; Protocol Last Admin: 09/07/19 08:44 Dose: 166.667 mls/hr Documented by: Lactated Ringer's (Lactated Ringers Solution) 1,000 mls @ 125 mls/hr IV ASDIR [facility] Last Admin: 09/06/19 05:35 Dose: 125 mls/hr Documented by: Insulin Aspart (Novolog Vial Sliding Scale -) 1 vial SQ ACHS [facility]; Protocol Last Admin: 09/07/19 06:33 Dose: 7 unit Documented by: Insulin Detemir (Levemir Vial) 30 units SQ BIDI@0700,2200 [facility] Last Admin: 09/07/19 06:34 Dose: 30 units Documented by: Metoprolol Succinate (Toprol Xl -) [address] [facility] Last Admin: 09/06/19 21:33 Dose: 25 mg Documented by: Ondansetron HCl (Zofran Injection) 4 mg IVPUSH Q6H PRN PRN Reason: NAUSEA AND/OR VOMITING Pantoprazole Sodium (Protonix -) 40 mg PO DAILY [facility] Last Admin: 09/06/19 09:37 Dose: 40 mg Documented by: Ramipril (Altace -) 5 mg PO DAILY [facility] Last Admin: 09/06/19 09:42 Dose: 5 mg Documented by: Tamsulosin HCl (Flomax -) 0.4 mg PO DAILY@0830 [facility] Last Admin: 09/07/19 08:44 Dose: 0.4 mg Documented by: - Objective Vital Signs: Vital Signs Temperature 98.4 F 09/07/19 09:25 Pulse Rate 89 09/07/19 09:25 Respiratory Rate 20 09/07/19 09:25 Blood Pressure 135/79 09/07/19 09:25 O2 Sat by Pulse Oximetry (%) 95 09/06/19 21:00 Constitutional: Yes: Well Nourished, No Distress, Calm Cardiovascular: Yes: Regular Rate and Rhythm Respiratory: Yes: Regular Gastrointestinal: Yes: Normal Bowel Sounds, Soft Genitourinary: Yes: Gayle Present Musculoskeletal: Yes: WNL Extremities: Yes: WNL Edema: No Peripheral Pulses WNL: Yes Neurological: Yes: Alert, Oriented Psychiatric: Yes: Alert, Oriented Labs: CBC, BMP 09/05/19 06:55 09/05/19 06:55 INR, PTT INR 1.13 (0.83-1.09) H 09/03/19 06:00 Assessment/Plan (1) Hematuria Assessment/Plan: - consult appreciated -S/P cystoscopy -Gayle -Monitor H/H -UC negative Code(s): R31.9 - HEMATURIA, UNSPECIFIED Qualifiers: Hematuria type: benign essential microscopic Qualified Code(s): R31.1 - Benign essential microscopic hematuria (2) Urinary retention Assessment/Plan: -Gayle present -Continue Tamsulosin Code(s): R33.9 - RETENTION OF URINE, UNSPECIFIED (3) Sepsis Assessment/Plan: -ultures: Microbiology 09/02/19 18:10 Blood - Peripheral Venous Blood Culture - Preliminary NO GROWTH OBTAINED AFTER 48 HOURS, INCUBATION TO CONTINUE FOR 3 DAYS. 09/02/19 18:05 Blood - Peripheral Venous Blood Culture - Preliminary NO GROWTH OBTAINED AFTER 48 HOURS, INCUBATION TO CONTINUE FOR 3 DAYS. 09/02/19 12:20 Urine - Urine Gayle Urine Culture - Final NO GROWTH OBTAINED -IV abx -Renal U/S negative -Bladder U/S-possible mass or blood clot -ID eval appreciated -Continue vanco for left foot osteo Code(s): A41.9 - SEPSIS, UNSPECIFIED ORGANISM Qualifiers: Sepsis type: sepsis due to unspecified organism Qualified Code(s): A41.9 - Sepsis, unspecified organism (4) Uncontrolled diabetes mellitus Assessment/Plan: -A1c at 7.1 -Levemir 27 U BID -ISS -BGM AC HS -Diabetic sodium diet-Endocrinology on board Code(s): E11.65 - TYPE 2 DIABETES MELLITUS WITH HYPERGLYCEMIA Qualifiers: Diabetes mellitus type: type 2
[2019-09-07] MEDS ORDERED: PT OWN MED DRAWER 7, Y5N ONE (10:47)
[2019-09-07] MEDS: CLOPIDOGREL BISULFATE 75 MG TABLET (FP) PO SCH (10:48)
[2019-09-07] MEDS: PANTOPRAZOLE 40 MG TABLET PO SCH (10:49)
[2019-09-07] MEDS: RAMIPRIL 5 MG CAPSULE (FP) PO SCH (10:49)
[2019-09-07] MEDS: LACTATED RINGERS SOLUTION 1,000 ML IV SCH ×2 (11:47→16:00)
[2019-09-07 14:24] VITALS: BP 138/79; PULSE 86; TEMP 98.7
--- NOTE | 2019-09-07 15:17 | DS ---
Physical Examination Vital Signs: Vital Signs Temperature 98.7 F 09/07/19 14:21 Pulse Rate 86 09/07/19 14:21 Respiratory Rate 20 09/07/19 14:21 Blood Pressure 138/79 09/07/19 14:21 O2 Sat by Pulse Oximetry (%) 96 09/07/19 09:00 Findings/Remarks: (1) Hematuria Assessment/Plan: - consult appreciated -S/P cystoscopy -Watters -Monitor H/H -UC negative Code(s): R31.9 - HEMATURIA, UNSPECIFIED Qualifiers: Hematuria type: benign essential microscopic Qualified Code(s): R31.1 - Benign essential microscopic hematuria (2) Urinary retention Assessment/Plan: -Watters present -Continue Tamsulosin Code(s): R33.9 - RETENTION OF URINE, UNSPECIFIED (3) Sepsis Assessment/Plan: -ultures: Microbiology 09/02/19 18:10 Blood - Peripheral Venous Blood Culture - Preliminary NO GROWTH OBTAINED AFTER 48 HOURS, INCUBATION TO CONTINUE FOR 3 DAYS. 09/02/19 18:05 Blood - Peripheral Venous Blood Culture - Preliminary NO GROWTH OBTAINED AFTER 48 HOURS, INCUBATION TO CONTINUE FOR 3 DAYS. 09/02/19 12:20 Urine - Urine Watters Urine Culture - Final NO GROWTH OBTAINED -IV abx -Renal U/S negative -Bladder U/S-possible mass or blood clot -ID eval appreciated -Continue vanco for left foot osteo Code(s): A41.9 - SEPSIS, UNSPECIFIED ORGANISM Qualifiers: Sepsis type: sepsis due to unspecified organism Qualified Code(s): A41.9 - Sepsis, unspecified organism (4) Uncontrolled diabetes mellitus Assessment/Plan: -A1c at 7.1 -Levemir 27 U BID -ISS -BGM AC HS -Diabetic sodium diet-Endocrinology on board Code(s): E11.65 - TYPE 2 DIABETES MELLITUS WITH HYPERGLYCEMIA Qualifiers: Diabetes mellitus type: type 2 Constitutional: Yes: Well Nourished, No Distress, Calm Cardiovascular: Yes: Regular Rate and Rhythm Respiratory: Yes: Regular, CTA Bilaterally Gastrointestinal: Yes: Normal Bowel Sounds, Soft Renal/: Yes: Watters Present (discontinued) Musculoskeletal: Yes: WNL Extremities: Yes: WNL Edema: No Peripheral Pulses WNL: Yes Neurological: Yes: Alert, Oriented Psychiatric: Yes: Alert, Oriented Labs: CBC, BMP 09/05/19 06:55 09/05/19 06:55 Discharge Summary Problems reviewed: Yes Reason For Visit: HEMATURIA;TERENTION FO URINE;FOOT INFECTION Current Active Problems Cellulitis of left foot (Acute) Hematuria (Acute) Type 2 diabetes mellitus with other diabetic arthropathy (Acute) Urinary retention (Acute) Laboratory Last Values WBC 8.6 K/mm3 (4.0-10.0) 09/05/19 06:55 RBC 4.29 M/mm3 (4.00-5.60) 09/05/19 06:55 Hgb 12.1 GM/dL (11.7-16.9) 09/05/19 06:55 Hct 35.3 % (35.4-49) L 09/05/19 06:55 MCV 82.1 fl (80-96) 09/05/19 06:55 MCH 28.2 pg (25.7-33.7) 09/05/19 06:55 MCHC 34.3 g/dl (32.0-35.9) 09/05/19 06:55 RDW 15.0 % (11.9-15.9) 09/05/19 06:55 Plt Count 207 K/MM3 (134-434) 09/05/19 06:55 MPV 9.2 fl (7.5-11.1) 09/05/19 06:55 Absolute Neuts (auto) 5.6 K/mm3 (1.5-8.0) 09/05/19 06:55 Neutrophils % 64.7 % (42.8-82.8) 09/05/19 06:55 Lymphocytes % 14.3 % (8-40) 09/05/19 06:55 Monocytes % 6.3 % (3.8-10.2) 09/05/19 06:55 Eosinophils % 13.8 % (0-4.5) H 09/05/19 06:55 Basophils % 0.9 % (0-2.0) 09/05/19 06:55 Nucleated RBC % 0 % (0-0) 09/05/19 06:55 PT with INR 13.30 SEC (9.7-13.0) H 09/03/19 06:00 INR 1.13 (0.83-1.09) H 09/03/19 06:00 PTT (Actin FS) 30.0 SECONDS (25.2-36.5) 09/03/19 06:00 Sodium 138 mmol/L (136-145) 09/05/19 06:55 Potassium 4.0 mmol/L (3.5-5.1) 09/05/19 06:55 Chloride 104 mmol/L (98-107) 09/05/19 06:55 Carbon Dioxide 27 mmol/L (21-32) 09/05/19 06:55 Anion Gap 8 MMOL/L (8-16) 09/05/19 06:55 BUN 22.1 mg/dL (7-18) H 09/05/19 06:55 Creatinine 1.2 mg/dL (0.55-1.3) 09/05/19 06:55 Est GFR (CKD-EPI)AfAm 75.19 09/05/19 06:55 Est GFR (CKD-EPI)NonAf 64.87 09/05/19 06:55 POC Glucometer 222 UNITS (80-120) 09/07/19 11:45 Random Glucose 211 mg/dL (74-106) H 09/05/19 06:55 Hemoglobin A1c % 7.1 % (4.2-6.3) H 09/05/19 06:55 Calcium 9.0 mg/dL (8.5-10.1) 09/05/19 06:55 Magnesium 2.0 mg/dL (1.8-2.4) 09/03/19 06:00 Total Bilirubin 0.7 mg/dL (0.2-1) 09/05/19 06:55 AST 12 U/L (15-37) L 09/05/19 06:55 ALT 23 U/L (13-61) 09/05/19 06:55 Alkaline Phosphatase 92 U/L (45-117) 09/05/19 06:55 Creatine Kinase 123 U/L (26-308) 09/02/19 18:05 Creatine Kinase Index 3.6 % (0.0-5.0) 09/02/19 11:09 CK-MB (CK-2) 6.8 ng/mL (0.5-3.6) H 09/02/19 11:09 Troponin I < 0.02 ng/ml (0.00-0.05) 09/02/19 18:05 B-Natriuretic Peptide 426.2 pg/ml (5-125) H 09/02/19 18:05 Total Protein 6.8 g/dl (6.4-8.2) 09/05/19 06:55 Albumin 3.2 g/dl (3.4-5.0) L 09/05/19 06:55 Prostate Specific Ag < 0.10 ng/ml (0.0-4.0) 09/02/19 18:05 TSH 0.43 uIU/ml (0.358-3.74) D 09/03/19 06:00 Urine Color Brown 09/02/19 12:20 Urine Appearance Cloudy 09/02/19 12:20 Urine pH 6.0 (5.0-8.0) 09/02/19 12:20 Ur Specific Mobile 1.020 (1.010-1.035) 09/02/19 12:20 Urine Protein 3+ (NEGATIVE) H 09/02/19 12:20 Urine Glucose (UA) 2+ (NEGATIVE) H 09/02/19 12:20 Urine Ketones Negative (NEGATIVE) 09/02/19 12:20 Urine Blood 3+ (NEGATIVE) H 09/02/19 12:20 Urine Nitrite Negative (NEGATIVE) 09/02/19 12:20 Urine Bilirubin Negative (NEGATIVE) 09/02/19 12:20 Urine Urobilinogen 0.2 mg/dL (0.2-1.0) 09/02/19 12:20 Ur Leukocyte Esterase Negative (NEGATIVE) 09/02/19 12:20 Urine RBC (Auto) >100 /hpf (0-4) 09/02/19 12:20 Random Vancomycin 9.7 ug/ml (5-26) 09/02/19 11:00 Blood Type O NEGATIVE 09/02/19 11:09 Antibody Screen Negative 09/02/19 11:09 Microbiology 09/02/19 18:10 Blood - Peripheral Venous Blood Culture - Preliminary NO GROWTH OBTAINED AFTER 96 HOURS, INCUBATION TO CONTINUE FOR 1 DAYS. 09/02/19 18:05 Blood - Peripheral Venous Blood Culture - Preliminary NO GROWTH OBTAINED AFTER 96 HOURS, INCUBATION TO CONTINUE FOR 1 DAYS. 09/02/19 12:20 Urine - Urine Watters Urine Culture - Final NO GROWTH OBTAINED Vital Signs Temp 98.7 F 09/07/19 14:21 Pulse 86 09/07/19 14:21 Resp 20 09/07/19 14:21 BP 138/79 09/07/19 14:21 Pulse Ox 96 09/07/19 09:00 Intake & Output 09/06/19 09/07/19 09/07/19 23:59 11:59 23:59 Intake Total 3200 550 250 Output Total 9100 3200 Balance -5900 -2650 250 Intake: IV 0 Lactated Ringers Solution 0 1,000 ml @ 125 mls/hr IV ASDIR LISBETH Rx#: [id number] IVPB 350 Oral 200 200 250 CBI Intake 3000 Output: Urine 9100 3200 Watters 9100 3200 Other: Voiding Method Indwelling Catheter Indwelling Catheter Bowel Movement No Condition: Stable - Instructions Referrals: Darren Carr [Primary Care Provider] - Darin Roberts MD [Staff Physician] - Disposition: VNS/HOME HEALTH CARE - Home Medications Comprehensive Discharge Medication List: Ambulatory Orders Atorvastatin Calcium 40 mg PO HS 08/10/16 Insulin Degludec [Tresiba Flextouch U-100] 55 units SQ HS 01/01/17 Insulin Aspart (Niacinamide) [Fiasp 100 Unit/ml Vial] 24 unit SQ TID 07/04/18 Pantoprazole Sodium 40 mg PO PRN PRN 10/19/18 Metoprolol Succinate [Toprol XL -] 25 mg PO HS tab.sr.24h 11/17/18 Ramipril 5 mg PO DAILY 06/05/19 Aspirin Coated [Ecotrin -] 81 mg PO DAILY #0 tablet.ec 06/06/19 Clopidogrel Bisulfate [Plavix -] 75 mg PO DAILY #0 tablet 06/06/19 Semaglutide [Ozempic] 2.5 units SQ WEEKLY 07/24/19 Acetaminophen [Tylenol .Regular Strength -] 650 mg PO Q6H PRN tablet 09/07/19 Pantoprazole Sodium [Protonix -] 40 mg PO DAILY #30 tablet.ec 09/07/19 Tamsulosin HCl [Flomax -] 0.4 mg PO DAILY@0830 #30 cap.er.24h 09/07/19 Vancomycin/Water For Inj (Peg) [Vancomycin 1 Gram/200 ml Bag] 1 gm IV Q12H #7 p iggyback 09/07/19 Prescription Drug Monitoring Program (I-STOP) results: I-STOP reviewed and no issues identified
--- NOTE | 2019-09-07 18:19 | PATH ---
Surgical Pathology Report Patient Name: STEVE CALDERON Med. Rec. #: [id number] /Age/Gender: 1960 (Age: 59) / M Account: [id number] Location: [facility] MED/SURG Taken: 09/05/2019 Received: 09/06/2019 Reported: 09/07/2019 Physicians: Darin Roberts M.D. Specimen(s) Received PROSTATE CHIPS Clinical History Hematuria Final Diagnosis PROSTATE CHIPS, TRANSURETHRAL RESECTION OF PROSTATE: BENIGN PROSTATIC TISSUE WITH FOCAL CHRONIC INFLAMMATION AND STROMAL HYPERPLASIA. FIBROMUSCULAR TISSUE WITH DYSTROPHIC CALCIFICATIONS. PROSTATIC UROTHELIUM WITH MILD CHRONIC CYSTITIS. Electronically Signed Susie Pollard M.D. Gross Description Received in formalin labeled "prostate chips," is a 2 g, 3.6 x 2.6 x 0.4 cm aggregate of anaya, firm to rubbery tissue fragments, consistent with prostate chips. The specimen is entirely submitted in 3 cassettes. /09/06/2019 saudi/09/06/2019
== END 2019-09-07 16:33 | disposition home health service (06) | DRG 854 ==
LOC: JER 10:20 → JERBED 13:24 → J7W 15:48
PROVIDERS: ADMIT Family Medicine; ATTEND Family Medicine
PROC: 0W3R8ZZ Control Bleeding in Genitourinary Tract, Via Natural or Artificial Opening Endoscopic (ICD-10-PCS; 2019-09-05)
PROC: 0TCB8ZZ Extirpation of Matter from Bladder, Via Natural or Artificial Opening Endoscopic (ICD-10-PCS; 2019-09-05)
PROC: 0VB08ZZ Excision of Prostate, Via Natural or Artificial Opening Endoscopic (ICD-10-PCS; principal; 2019-09-05 15:00)
DX: A41.9 Sepsis, unspecified organism (principal); M86.9 Osteomyelitis, unspecified; L03.116 Cellulitis of left lower limb; N42.1 Congestion and hemorrhage of prostate; E11.51 Type 2 diabetes mellitus with diabetic peripheral angiopathy without gangrene; I12.9 Hypertensive chronic kidney disease with stage 1 through stage 4 chronic kidney disease, or unspecified chronic kidney disease; D72.829 Elevated white blood cell count, unspecified; R31.9 Hematuria, unspecified; R33.9 Retention of urine, unspecified; E11.69 Type 2 diabetes mellitus with other specified complication; E11.65 Type 2 diabetes mellitus with hyperglycemia; E78.5 Hyperlipidemia, unspecified; N40.1 Benign prostatic hyperplasia with lower urinary tract symptoms; N18.9 Chronic kidney disease, unspecified
CPT/HCPCS: 36415; 71045-TC-FY; 76775; 76775-TC; 76856-TC; 80053; 81003; 82550; 82553; 82962; 83036; 83735; 83880; 84153; 84443; 84484; 85025; 85610; 85730; 86850; 86900; 86901; 87040; 87086; 88305-TC; 93005; 93010; 94760; 99285-25; G0480; J7030

== ENCOUNTER 2020-03-15 19:14 | Emergency (ER) | payer OTHER ==
--- OUTSIDE RECORDS SUMMARY | 2020-03-15 19:30 | XMS ---
:1960 [facility] Care Team Providers Name Role Phone FABI NICE Unavailable Unavailable Re-disclosure Warning The records that you are about to access may contain information from federally- assisted alcohol or drug abuse programs. If such information is present, then the following federally mandated warning applies: This information has been disclosed to you from records protected by federal confidentiality rules (42 CFR part 2). The federal rules prohibit you from making any further disclosure of this information unless further disclosure is expressly permitted by the written consent of the person to whom it pertains or as otherwise permitted by 42 CFR part 2. A general authorization for the release of medical or other information is NOT sufficient for this purpose. The Federal rules restrict any use of the information to criminally investigate or prosecute any alcohol or drug abuse patient.The records that you are about to access may contain highly sensitive health information, the redisclosure of which is protected by Article 27-F of the [facility] Public Health law. If you continue you may haveaccess to information: Regarding HIV / AIDS; Provided by facilities licensed or operated by the [facility] Office of Mental Health; or Provided by the [facility] Office for People With Developmental Disabilities. If such information is present, then the following [facility] mandated warning applies: This information has been disclosed to you from confidential records which are protected by state law. State law prohibits you from making any further disclosure of this information without the specific written consent of the person to whom it pertains, or as otherwise permitted by law. Any unauthorized further disclosure in violation of state law may result in a fine or shelter sentence or both. A general authorization for the release of medical or other information is NOT sufficient authorization for further disclosure. Allergies and Adverse Reactions Type Description Substance Reaction Status Data Source(s ) Food allergy No Known Food No Known Food [facility] Drug allergy No Known Drug No Known Drug [facility] Allergies Medical [place] Encounters Encounter Providers Location Date Indications Data Source(s ) Outpatient Attender: FABI Akers 09/04/2018 [place] dam[place] 08:21:00 AM Medical Porsha DUNLAPAdmitter: FABI Gayerrer: FABI DUNLAP Insurance Providers Payer name Policy type Policy ID Covered Covered alliance party's Policy P hector / Coverage alliance party ID relationship to [place] [facility] or[facility] type [place] MED[place] [id number] SP [id number] MEDICARE [id number] SP [id number] 1 MEDICAID [id number] SP [id number] MEDICAID [id number] SP [id number] MEDICARE [id number] SP [id number] MEDICAID [id number] SP [id number] MEDICAID [id number] SP [id number] MEDICAID [id number] SP [id number] MEDICAID [id number] SP [id number] MEDICAID [id number] SP [id number] 01 [id number] MEDICAID [id number] SP [id number] MEDICAID [id number] SP [id number] MEDICAID [id number] SP [id number] Problems, Conditions, and Diagnoses Code Display Name Description Problem Type Effective Data Sour ce(s) Dates I10 Essential (primary) ESSENTIAL (PRIMARY) Diagnosis 019 [place] hypertension HYPERTENSION 08:21:00 AM Medical C enter EDT E11.9 Type 2 diabetes TYPE 2 DIABETES Diagnosis 09/04/2018 [place]y mellitus without MELLITUS WITHOUT 08:21:00 AM [facility] complications COMPLICATIONS EDT Results ID Date Data Source [id number] 01/01/2020 12:00:00 AM EDT [facility] Name Value Range Interpretation Code Description Data Carley rce(s) Supporting Document(s ) 2019-nCoV [facility] RNA XXX RICK+probe- Imp This lab was ordered by [facility] [employer] and reported by [employer] ID Date Data Source [id number] 12/17/2019 11:00:00 AM EDT [facility] Name Value Range Interpretation Description Data Sup porting Code Source(s) Document(s ) SARS [facility] CORONAVIRUS 2 RNA This lab was ordered by [facility] and reported by [facility]. ID Date Data Source [id number] 12/11/2019 08:20:00 AM EDT [facility] Name Value Range Interpretation Description Data Sup porting Code Source(s) Document(s ) SARS [facility] CORONAVIRUS 2 RNA This lab was ordered by [facility] and reported by [facility]. ID Date Data Source [id number] 12/11/2019 12:00:00 AM EDT [facility] Name Value Range Interpretation Code Description Data Carley rce(s) Supporting Document(s ) 2018-nCoV [facility] RNA XXX RICK+probe- Imp This lab was ordered by [facility] [employer] and reported by [employer] ID Date Data Source [id number] 11/30/2019 12:00:00 AM EDT [facility] Name Value Range Interpretation Code Description Data Carley rce(s) Supporting Document(s ) 2018-nCoV [facility] RNA XXX RICK+probe- Imp This lab was ordered by [facility] and reported by [employer] ID Date Data Source [id number] 11/23/2019 12:00:00 AM EDT [facility] Name Value Range Interpretation Code Description Data Carley rce(s) Supporting Document(s ) 2018-nCoV [facility] RNA XXX RICK+probe- Imp This lab was ordered by [facility] and reported by [employer] ID Date Data Source [id number] 11/19/2019 01:15:00 AM EDT [facility] Name Value Range Interpretation Description Data Sup porting Code Source(s) Document(s ) SARS [facility] CORONAVIRUS 2 RNA This lab was ordered by [facility] and reported by [facility]. ID Date Data Source [id number] 10/31/2019 06:00:00 PM EDT [facility] Name Value Range Interpretation Description Data Sup porting Code Source(s) Document(s ) SARS [facility] CORONAVIRUS 2 RNA This lab was ordered by [facility] and reported by [facility]. Procedure Social History Code Duration Value Status Description Data Source(s ) Smoking Unknown if ever completed Unknown if ever Holly Ley smoked [facility]
[2020-03-15 19:33] VITALS: BP 90/59; PULSE 118; TEMP 98.2; BMI 23.0
--- NOTE | 2020-03-15 19:37 | PDOC ---
History of Present Illness - General Chief Complaint: Pain, Acute Stated Complaint: GROIN PAIN Time Seen by Provider: 03/15/20 19:35 History Source: Patient, Old Records Exam Limitations: No Limitations - History of Present Illness Initial Comments: 03/15/20 19:35 Ney Puentes is a 59M with PMH HTN, IDDM, R femoral posterior tibial/fem bypass with PTFE graft, RLE BKA. At [facility]. Transferred from wheelchair to toilet 2 days ago and fell. Hit right groin. On Xarelto. Has had worsening R groin and leg swelling with large hematoma, now tense and hard. Denies numbness/tingling. Denies abd pain. Denies chest pain/SOB. Denies external bleeding. Past History - Medical History Allergies/Adverse Reactions: Allergies Allergy/AdvReac Type Severity Reaction Status Date / Time piperacillin [From Zosyn] Allergy Swelling Verified 12/13/19 07:26 tazobactam [From Zosyn] Allergy Swelling Verified 12/13/19 07:26 Home Medications: Ambulatory Orders Atorvastatin Calcium 40 mg PO HS 08/10/16 Aspirin Coated [Ecotrin -] 81 mg PO DAILY #0 tablet.ec 06/06/19 Famotidine [Pepcid -] 20 mg PO BID tablet 11/16/19 Insulin (Levemir) [Levemir Vial] 35 units SQ BID@0700,2200 units 11/16/19 Ramipril [Altace] 2.5 mg PO DAILY capsule 11/16/19 Rivaroxaban [Xarelto -] 20 mg PO DAILY@1800 tablet 11/16/19 Sennosides [Senna -] 2 tab PO HS tablet 11/16/19 traMADol HCL [Ultram -] 50 mg PO Q8H PRN tablet 11/16/19 Cyanocobalamin (Vitamin B-12) [B-12] 2,500 mcg SL DAILY #30 tab.subl 11/20/19 Ferrous Sulfate 325 mg PO BID #60 tablet 11/20/19 oxyCODONE HCL [Roxicodone -] 5 mg PO Q6H PRN tablet 11/20/19 Docusate Sodium [Colace -] 200 mg PO DAILY 12/03/19 Acetaminophen 650 mg PO PRN PRN 12/12/19 Insulin Lispro [Admelog Solostar] 0 unit SQ UTDICT 12/12/19 Metoprolol Tartrate 25 mg PO HS 12/12/19 Multiple Vitamins 1 tab PO DAILY 03/11/20 Anemia: No Asthma: No Cancer: Yes (Prostate (s/p seed implants July 02, 2016)) Cardiac Disorders: No CVA: No COPD: No CHF: No Dementia: No Diabetes: Yes (IDDM, diabetic foot ulcers) GI Disorders: No Disorders: No HTN: Yes Hypercholesterolemia: Yes Liver Disease: No Seizures: No Thyroid Disease: No - Surgical History Abdominal Surgery: Yes (hernia repair, appendectomy) Appendectomy: Yes Cardiac Surgery: No Cholecystectomy: No GI Surgery: Yes (PROSTATE RADIATION SEED PLACEMENT) Lung Surgery: No Neurologic Surgery: No Orthopedic Surgery: Yes (left foot metatarsal amp, right foot tma, stent,right LE angiogr) - Immunization History Immunization Up to Date: No - Psycho-Social/Smoking History Smoking Status: Yes (quit smoking 9 days ago) Smoking History: Former smoker Have you smoked in the past 12 months: No Number of Cigarettes Smoked Daily: 15 If you are a former smoker, when did you quit?: 2012 Information on smoking cessation initiated: No 'Breaking Loose' booklet given: 04/04/13 - Substance Abuse Hx (Audit-C & DAST Scrn) How often the patient has a drink containing alcohol: Never Score: In Men: 4 or > Positive; In Women: 3 or > Positive: 0 Screen Result (Pos requires Nsg. Audit-10AR): Negative In the last yr the pt used illegal drug/Rx for NonMed reason: No Score: Yes response is considered Positive: 0 Screen Result (Positive result requires Nsg. DAST-10): Negative Review of Systems - Review of Systems Able to Perform ROS?: Yes Constitutional: No: Symptoms Reported HEENTM: No: Symptoms Reported Respiratory: No: Symptoms reported Cardiac (ROS): No: Symptoms Reported ABD/GI: No: Symptoms Reported : No: Symptoms Reported Musculoskeletal: No: Symptoms Reported Integumentary: Yes: Bruising, Pallor Neurological: No: Symptoms reported Endocrine: No: Symptoms Reported Hematologic/Lymphatic: No: Symptoms Reported All Other Systems: Reviewed and Negative *Physical Exam - Vital Signs Last Vital Signs Temp Pulse Resp BP Pulse Ox 98.2 F 118 H 18 90/59 L 94 L 03/15/20 19:14 03/15/20 19:14 03/15/20 19:14 03/15/20 19:14 03/15/20 19:14 - Physical Exam General Appearance: Yes: Nourished, Appropriately Dressed, Other (feels warm, irritable, but appears comfortable in bed). No: Apparent Distress HEENT: positive: EOMI, [place], Normal Voice, Symmetrical, Scleral Icterus (L). ne gative: Pharynx Normal (dry), Scleral Icterus (R), Tonsillar Exudate, Tonsillar Erythema Neck: positive: Trachea midline, Normal Thyroid. negative: Tender, Lymphadenopathy (R), Lymphadenopathy (L), Tender lateral, Tender midline Respiratory/Chest: positive: Lungs Clear, Normal Breath Sounds. negative: Chest Tender, Respiratory Distress, Accessory Muscle Use, Crackles, Rales, Rhonchi, Stridor Cardiovascular: positive: Regular Rhythm, Regular Rate. negative: Murmur Gastrointestinal/Abdominal: positive: Normal Bowel Sounds, Flat, Soft. negative: Tender, Pulsatile Mass, Distended, Guarding Musculoskeletal: positive: Normal Inspection. negative: CVA Tenderness, Decre ased Range of Motion, Vertebral Tenderness Extremity: positive: Normal Capillary Refill, Normal Range of Motion, Tender (R groin), Pelvis Stable, Other (RLE large hematoma with tense, hard leg from groin to knee, RLE BKA with small punctate wound with serosang bleeding, sensation intact compared to LLE). negative: Normal Inspection, Coldness, Pedal Edema, Swelling, Calf Tenderness, Erythema Integumentary: positive: Normal Color, Warm, Swelling, Ecchymosis, Bruising Neurologic: positive: Alert, Normal Mood/Affect, Normal Response. negative: Motor Strength 5/5 (3/5 all limbs) ED Treatment Course - LABORATORY CBC & Chemistry Diagram: 03/15/20 19:43 03/15/20 19:43 Medical Decision Making - Medical Decision Making 03/15/20 19:35 Patient presents with RLE swelling and large groin hematoma, leg is tense and hard with normal sensation and ROM, R femoral pulse intact, no abd pain, no other evidence of injury. Has known history of graft and fem bypass in RLE, concern for vascular compromise. Full complement of pre-op labs ordered. Initial labs show Hgb 6.2 and WBC >30, with Cr 2.1 and hemolyzed potassium. Concerned for infection with large volume blood loss into hematoma. Vascular Dr. Cuadra consulted but unavailable. Attending discussed case with vascular physician at [facility], auto-accepted to [facility] for ED-to-ED transfer. 18G IV placed with US guidance in to RUE for better access. Blood cultures and RLE wound culture taken. Started 1L IV NS, Ofirmev for fever, starting on clindamycin and vancomycin for ABx given fever and elevated WBC count. 1 unit pRBC ordered, running now. Pending emergent transfer to [facility] at this time. Discharge - Discharge Information Problems reviewed: Yes Clinical Impression/Diagnosis: ARA (acute kidney injury) Traumatic hematoma of groin Qualifiers: Encounter type: initial encounter Qualified Code(s): S30.1XXA - Contusion of abdominal wall, initial encounter Anemia Qualifiers: Anemia type: unspecified type Qualified Code(s): D64.9 - Anemia, unspecified Condition: Critical Disposition: TRANSFER ACUTE CARE/OTHER HOSP - Follow up/Referral Referrals: Martin Bueno MD [Primary Care Provider] - - Patient Discharge Instructions - Post Discharge Activity
[2020-03-15 19:47] LABS: BASO % 0.5 % (0-2.0); HEMATOCRIT 18.6 % (35.4-49); LYMPH % 1.5 % (8-40); MCH 26.2 pg (25.7-33.7); MCHC 33.3 g/dl (32.0-35.9); MEAN CELL VOLUME 78.8 fl (80-96); PLATELET COUNT 485 K/MM3 (134-434); RBC 2.36 M/mm3 (4.00-5.60); RDW 16.4 % (11.9-15.9)
--- NOTE | 2020-03-15 19:48 | PDOC ---
Attending Attestation - Resident Resident Name: Anand Francois - ED Attending Attestation I have performed the following: I have examined & evaluated the patient, The case was reviewed & discussed with the resident, I agree w/resident's findings & plan - HPI HPI: 03/15/20 20:18 Pt comes with tachy, fever and right groin expanding hematoma x 3 days which has been ongoing since he fell out of a chair during transfer. Pt has a right BKA done at 12/13/19; prior to that he had a Right femoral bypass with PTFE graft on 11/14/19. That is the likely source of bleeding and blood loss, as pt is on xarelto Pt has allergy to PCN and tazobactam. He will get 1g Vancomycin and CLindamycin 600mg here. - Physicial Exam PE: 03/15/20 20:44 Pt is A+0x3; HR is 115; O2sat 100% on RA BP is 90/60 Pt has right groin large hematoma that is hot and tender Pt has a right BKA, with a small area of the stump that is open and oozing blood. 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 - Medical Decision Making 03/15/20 20:46 Labs show a WBC of 40; Pt has an anion gap of 9l Cr of 2.1 Hb is 6.6; his baseline from 3 months ago is 9.1 Pt has DM; however glc relatively stable at 276; potassium is 5.8, however specimen was hemolyzed. Pt will be transfused with 1U PRBC, as he is losing blood into the right thigh We called Dr. Nuno, pt's vascular surgeon, who is not hotel or motel receptionist. 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 Cuadra doesn't know the patient and he is dealing with an emergency of a patient with a cold leg. Request to transfer patient to [facility]; I spoke to Dr. Rojas, who graciously accepts transfer of the patient. Stat team coming in 5 minutes to package pick up the patient. Pt is stable for transfer. 03/15/20 20:50 O2 sat 100%; HR is coming down with IV fluids and blood products. 03/15/20 20:51 Discharge - Discharge Information Problems reviewed: Yes Clinical Impression/Diagnosis: ARA (acute kidney injury) Traumatic hematoma of groin Qualifiers: Encounter type: initial encounter Qualified Code(s): S30.1XXA - Contusion of abdominal wall, initial encounter Anemia Qualifiers: Anemia type: unspecified type Qualified Code(s): D64.9 - Anemia, unspecified Condition: Critical Disposition: TRANSFER ACUTE CARE/OTHER HOSP - Follow up/Referral Referrals: Martin Bueno MD [Staff Physician] - - Patient Discharge Instructions - Post Discharge Activity - Transfer to Acute Care Facility Receiving Facility Name: [facility] (Dr. Rojas, VASC SURG)
[2020-03-15] MEDS ORDERED: ACETAMINOPHEN 1000 MG/100 ML VIAL (NON FORMULARY) IVPB ONE (19:49)
[2020-03-15 19:51] LABS: HEMOGLOBIN 6.2 GM/dL (11.7-16.9); WHITE BLOOD COUNT 39.9 K/mm3 (4.0-10.0)
[2020-03-15 19:53] LABS: INR 1.29 (0.83-1.09); PROTHROMBIN TIME (PATIENT) 15.3 SEC (9.7-13.0)
[2020-03-15] MEDS ORDERED: VANCOMYCIN 1,000 MG in DEXTROSE 5%-WATER - 250 ML IVPB ONE (19:55)
[2020-03-15 19:56] LABS: ACTIVATED PTT 26.1 SECONDS (25.2-36.5)
[2020-03-15] MEDS ORDERED: SODIUM CHLORIDE 0.9% 500 ML INFUS.BAG IV ONE (19:56)
[2020-03-15 20:13] LABS: ALK PHOS 163 U/L (45-117); ANION GAP 9 MMOL/L (8-16); BILIRUBIN,TOTAL 0.6 mg/dL (0.2-1); BLOOD UREA NITROGEN 50.7 mg/dL (7-18); CALCIUM 7.6 mg/dL (8.5-10.1); CHLORIDE 99 mmol/L (98-107); CO2 22 mmol/L (21-32); CREATININE 2.1 mg/dL (0.55-1.3); GLUCOSE,RANDOM 276 mg/dL (74-106); POTASSIUM 5.8 mmol/L (3.5-5.1); SGOT/AST 44 U/L (15-37); SGPT/ALT 35 U/L (13-61); SODIUM 130 mmol/L (136-145); TOT PROT 6.3 g/dl (6.4-8.2)
[2020-03-15] MEDS ORDERED: VANCOMYCIN 1 GRAM (PRE-DOCKED) 1,000 MG/250 ML BAG IVPB ONE (20:14)
[2020-03-15] MEDS ORDERED: ACETAMINOPHEN INJECTION 100 ML IVPB ONE (20:14)
[2020-03-15] MEDS ORDERED: CLINDAMYCIN 600MG PREMIX IVPB 600 MG/50 ML BAG IVPB ONE ×2 (20:21→20:25)
[2020-03-15 23:33] LABS: PLATELET ESTIMATE SLT INCREASE
--- NOTE | 2020-03-16 09:29 | EKG ---
Test Reason : Blood Pressure : / mmHG Vent. Rate : 120 BPM Atrial Rate : 120 BPM P-R Int : 144 ms QRS Dur : 080 ms QT Int : 322 ms P-R-T Axes : 003 -25 065 degrees QTc Int : 455 ms SINUS TACHYCARDIA OTHERWISE NORMAL ECG WHEN COMPARED WITH ECG OF 30-OCT-2019 13:30, NO SIGNIFICANT CHANGE WAS FOUND Confirmed by Kristine Richardson ([id number]) on 03/16/2020 9:29:28 AM Referred By: Confirmed By:Kristine Richardson
== END 2020-03-15 20:00 | disposition short-term general hospital (02) ==
LOC: JER 19:14
PROC: 3E03329 Introduction of Other Anti-infective into Peripheral Vein, Percutaneous Approach (ICD-10-PCS; principal; 2020-03-15)
PROC: 3E033GC Introduction of Other Therapeutic Substance into Peripheral Vein, Percutaneous Approach (ICD-10-PCS; 2020-03-15)
DX: N17.9 Acute kidney failure, unspecified (principal); S30.1XXA Contusion of abdominal wall, initial encounter; D64.9 Anemia, unspecified
CPT/HCPCS: 36415; 36430; 71045-TC-FY; 80053; 82550; 82553; 84484; 85025; 85610; 85730; 86850; 86900; 86901; 86922; 93005; 93010; 99285-25; J0131; P9058